=== PATIENT | male | born 1950 | race Caucasian/White ===

== ENCOUNTER → 2017-11-24 06:57 | Outpatient (CLI) | payer MEDICARE, OTHER, SELFPAY ==
--- NOTE | 2017-11-24 07:01 | CT_ITS ---
STUDY: CT MAXILLOFACIAL SINUSES REASON FOR EXAM: Male, 67 years old. Sinusitis RADIATION DOSAGE (If Supplied By Facility): CTDIvol = ( 29.38 ) mGy, DLP = ( 407.88 ) mGycm TECHNIQUE: The patient was scanned in a multi detector CT scanner. High resolution axial imaging was performed without the administration of intravenous contrast material. Sagittal and coronal images were reconstructed. Individualized dose optimization techniques were used for this CT. COMPARISON: None. FINDINGS: FRONTAL SINUSES: Mucosal thickening of the inferior frontal sinuses extending into the frontal recesses. ETHMOIDAL SINUSES: Mild ethmoid mucosal thickening MAXILLARY SINUSES: Mucosal thickening in the right and left maxillary sinuses. SPHENOIDAL SINUSES: Mild mucosal thickening. There is patency of the bilateral maxillary infundibuli with normal uncinate processes, ethmoid bullae, and hiatus semilunaris. There is paradoxical curvature of the right middle turbinate. Normal bilateral inferior turbinates. There is a right sided nasal septal deviation, but without a nasal septal spur. There is patency of the bilateral nasal airways. The visualized osseous structures are normal. The visualized bilateral orbital contents are normal. CT/Sinus/Facial Bone IMPRESSION: Pansinusitis with mild mucosal thickening. Opacification of frontal recesses. The ostiomeatal units are patent. Nasal septal deviation. Electronically Signed: Art Mccullough MD at 7:48 EDT , Service support ,
== END ==
PROVIDERS: Family Provider Internal Medicine; PCP Internal Medicine; Visit Provider Internal Medicine
DX: J32.9 Chronic sinusitis, unspecified (principal)
CPT/HCPCS: 70486

== ENCOUNTER → 2018-02-09 07:57 | Outpatient (CLI) | payer MEDICARE, OTHER, SELFPAY ==
--- NOTE | 2018-02-09 08:00 | RAD_ITS ---
STUDY: X-RAY - LUMBAR SPINE REASON FOR EXAM: Male, 67 years old. One-week history of low back pain. TECHNIQUE: 5 view(s) of the lumbar spine were obtained including oblique views. COMPARISON: None FINDINGS: Normal lumbar lordosis. There is no substantial scoliosis. There is a normal alignment of the vertebrae. Spondylosis at the L3-L4 and L4-L5 levels. Disc space narrowing at the L3-L4, L4-L5 and L5-S1 levels. Facet joint osteoarthritis. Status post bilateral total hip replacement. Degenerative changes of the sacroiliac joints. Large amount of fecal material is seen in the colon. RAD/L/S Spine Min 4 Views IMPRESSION: Degenerative changes of the spine, as detailed above. Electronically Signed: Spencer Vizcarra MD at 13:55 EDT Tel [phone], Service support ,
== END ==
PROVIDERS: Family Provider Internal Medicine; PCP Internal Medicine; Visit Provider Internal Medicine
DX: M54.5 Low back pain (principal)
CPT/HCPCS: 72110

== ENCOUNTER → 2018-06-28 07:52 | Outpatient (CLI) | payer MEDICARE, OTHER, SELFPAY ==
[2018-06-27 13:26] VITALS: BMI 27.4
[2018-06-28 10:38] LABS: AST(SGOT) 16 U/L (15-37); Alanine Aminotransfer ALT/SGPT 22 U/L (16-61); Albumin, Serum 3.8 g/dL (3.2-5.0); Alkaline Phosphatase 99 U/L (45-117); Bilirubin, Direct 0.14 mg/dL (0.00-0.30); Cholesterol 146 mg/dL (200); Globulin 3.6 g/dL (2.2-4.2); High Density Lipoprotein 56 mg/dL; Protein, Total 7.4 g/dL (6.4-8.2); Triglycerides 60 mg/dL; Very Low Density Lipoprotein 12 mg/dL (5-40)
== END ==
PROVIDERS: Family Provider Internal Medicine; PCP Internal Medicine; Referring Provider Internal Medicine Cardiovascular Disease; Visit Provider Internal Medicine Cardiovascular Disease
DX: E78.5 Hyperlipidemia, unspecified (principal); I25.10 Atherosclerotic heart disease of native coronary artery without angina pectoris; Z95.5 Presence of coronary angioplasty implant and graft
CPT/HCPCS: 36415; 80061; 80076

== ENCOUNTER → 2018-12-24 | Outpatient (CLI) | payer MEDICARE, OTHER, SELFPAY ==
[2018-06-27 13:26] VITALS: BMI 27.4
[2018-12-24 11:12] LABS: AST(SGOT) 16 U/L (15-37); Alanine Aminotransfer ALT/SGPT 23 U/L (16-61); Albumin, Serum 3.9 g/dL (3.2-5.0); Alkaline Phosphatase 91 U/L (45-117); Bilirubin, Direct 0.14 mg/dL (0.00-0.30); Cholesterol 148 mg/dL (200); Globulin 3.7 g/dL (2.2-4.2); High Density Lipoprotein 55 mg/dL; Protein, Total 7.6 g/dL (6.4-8.2); Triglycerides 86 mg/dL; Very Low Density Lipoprotein 17 mg/dL (5-40)
== END | disposition home or self-care (01) ==
PROVIDERS: Family Provider Internal Medicine; PCP Internal Medicine; Referring Provider Internal Medicine Cardiovascular Disease; Visit Provider Internal Medicine Cardiovascular Disease
DX: E78.5 Hyperlipidemia, unspecified (principal)
CPT/HCPCS: 36415; 80061; 80076

== ENCOUNTER → 2019-01-15 | Outpatient (CLI) | payer MEDICARE, OTHER, SELFPAY ==
[2018-12-27 11:47] VITALS: BMI 27.1
--- NOTE | 2019-01-15 11:12 | STRESSREP_ITS ---
Stress Test Report Date: 01-15-19 Procedure: Exercise tolerance test/imaging study Indications: Chest pain; CAD; PCI Consent: Per the patient Procedure: The patient exercised on a Charli protocol for 8 minutes completing Stage II and 2 minutes of Stage III achieving a peak heart rate of 134 bpm (87 % predicted maximal heart rate) with a peak blood pressure 170/78 mmHg and a peak MET capacity of 9 METs. The baseline ECG demonstrated sinus bradycardia. The peak exercise ECG demonstrated somatic/motion artifact with no obvious ECG changes. There were occasional PACs during recovery. The functional capacity was considered good. There was no complaint of chest discomfort during exercise or recovery. The examination was discontinued secondary to dyspnea. Impression: 1. Technically adequate (percent predicted maximal heart rate greater than 85%) exercise tolerance test 2. Peak exercise ECG with somatic/motion artifact with no obvious ECG changes 3. There were occasional PACs during recovery 4. Nuclear images pending Myocardial perfusion imaging study: Technique: The patient was injected with 11.7 mCi of technetium 99m Cardiolite and subsequently rest SPECT Cardiolite nuclear imaging was obtained in the horizontal long, vertical long, and short axis views. The patient exercised on a Charli protocol for 8 minutes completing Stage II and 2 minutes of Stage III achieving a peak heart rate of 134 bpm (87 % predicted maximal heart rate) with a peak blood pressure 170/78 mmHg and a peak MET capacity of 9 METs. The patient was injected with 33.9 mCi of technetium 99m Cardiolite and subsequently stress SPECT Cardiolite nuclear imaging was obtained in the horizontal long, vertical long, and short axis views. A gated Cardiolite study at peak stress was obtained. Interpretation: Rest and stress SPECT Cardiolite nuclear imaging status post realignment, normalization, and attenuation correction, demonstrates the appearance of relative uniform tracer uptake and myocardial perfusion appearing within normal limits. There is end systolic thickening and brightening. The gated Cardiolite study demonstrates myocardial thickening and inward wall motion. The reported LVEF is 67 %. Impression: 1. Rest and stress SPECT Cardiolite nuclear imaging demonstrate relative uniform tracer uptake and myocardial perfusion appearing within normal limits. 2. The gated Cardiolite study reports an LVEF of 67 %. This note was generated with [employer] software. It may contain incorrect words, spelling, and punctuation that were not noted in checking the note before signing.
== END | disposition home or self-care (01) ==
LOC: CVS 06:28
PROVIDERS: Family Provider Internal Medicine; PCP Internal Medicine; Referring Provider Internal Medicine Cardiovascular Disease; Visit Provider Internal Medicine Cardiovascular Disease
DX: I25.10 Atherosclerotic heart disease of native coronary artery without angina pectoris (principal); Z95.5 Presence of coronary angioplasty implant and graft
CPT/HCPCS: 78452; 93017; A9500; A4216

== ENCOUNTER → 2020-04-29 06:47 | Outpatient (CLI) | payer MEDICARE, OTHER, SELFPAY ==
[2020-04-13 14:51] VITALS: BMI 27.1
[2020-04-29 08:15] LABS: AST(SGOT) 18 U/L (15-37); Alanine Aminotransfer ALT/SGPT 21 U/L (16-61); Albumin, Serum 3.6 g/dL (3.2-5.0); Alkaline Phosphatase 94 U/L (45-117); Bilirubin, Direct 0.14 mg/dL (0.00-0.30); Cholesterol 127 mg/dL (200); Globulin 3.8 g/dL (2.2-4.2); High Density Lipoprotein 54 mg/dL; Protein, Total 7.4 g/dL (6.4-8.2); Triglycerides 61 mg/dL; Very Low Density Lipoprotein 12 mg/dL (5-40)
== END ==
PROVIDERS: PCP Internal Medicine; Referring Provider Internal Medicine Cardiovascular Disease; Visit Provider Internal Medicine Cardiovascular Disease
DX: E78.5 Hyperlipidemia, unspecified (principal)
CPT/HCPCS: 36415; 80061; 80076

== ENCOUNTER → 2020-11-02 16:26 | Outpatient (CLI) | payer MEDICARE, OTHER, SELFPAY ==
[2020-11-02 15:30] VITALS: BMI 28.0
--- NOTE | 2020-11-02 16:48 | RAD_ITS ---
STUDY: X-RAY CHEST REASON FOR EXAM: Male, 70 years old. SOB, Cough TECHNIQUE: PA and lateral views of the chest. COMPARISON: 03/23/2015 FINDINGS: The lungs are clear and expanded. There is no demonstrated pleural abnormality. Normal size heart. Normal mediastinum and jeremias. Normal visualized pulmonary arteries. Normal visualized aortic arch and descending thoracic aorta. Normal visualized thoracic spine. Normal visualized ribs, clavicles, and shoulders. There is no demonstrated abnormality of the visualized soft tissue structures of the upper abdomen. RAD/Chest PA and Lateral IMPRESSION: Normal x-ray examination of the chest. Electronically Signed: Armando Boyer MD at 9:18 EDT Tel , Service support ,
[2020-11-02 17:38] LABS: Absolute Neutrophil Count 3.9 X10^3/uL (2.0-7.7); Basophil# 0.03 X10^3/uL; Basophil% 0.4 % (0-1); Eosinophil# 0.24 X10^3/uL; Eosinophils% 3.5 % (0-5); Hematocrit 47.3 % (40-54); Hemoglobin 15.3 g/dL (13.0-16.5); Lymphocyte % 29.3 % (19-41); Mean Corp Hgb Conc 32.3 g/dL (32-36); Mean Corpuscular Hgb 30.7 pg (27.0-32.0); Mean Platelet Vol. 9.6 fl (6.2-12.0); Monocyte# 0.67 X10^3/uL; Monocyte% 9.8 % (0-10); NRBC Flagged by Analyzer 0 % (0-5); Neutrophil # 3.86 X10^3/uL (2.7-7.7); Neutrophil % 56.7 % (47-70); Platelet Count 289 K/mm3 (150-450); RBC Distribution Width CV 12.5 % (11.6-14.6); RBC Distribution Width SD 43.4 fl (35.1-43.9); Red Blood Count 4.98 M/mm3 (4.6-6.2); White Blood Count 6.8 K/mm3 (4.4-11.0)
[2020-11-02 18:25] LABS: Anion Gap 4 (5-15); BUN 13 mg/dL (7-18); BUN/Creat Ratio 12.6 RATIO (10-20); Calcium,Total 9.4 mg/dL (8.5-10.1); Chloride 101 mmol/L (98-107); Creatinine, Serum 1.03 mg/dL (0.70-1.30); EST Glomerular Filtration Rate 76 mL/min (>60); Est Glom Filt Rate - Afr Amer 92 mL/min (>60); Glucose 80 mg/dL (74-106); Potassium 3.8 mmol/L (3.5-5.1); Sodium Level 137 mmol/L (136-145)
[2020-11-02 18:27] LABS: BNP,B-Type NATRIURETIC PEPTIDE 15.7 pg/mL (0-100)
== END ==
PROVIDERS: Nurse Practitioner Family; PCP Internal Medicine; Referring Provider Internal Medicine Cardiovascular Disease; Visit Provider Internal Medicine Cardiovascular Disease
DX: E78.5 Hyperlipidemia, unspecified (principal); R06.00 Dyspnea, unspecified; I10 Essential (primary) hypertension; I25.10 Atherosclerotic heart disease of native coronary artery without angina pectoris; R06.02 Shortness of breath; Z95.5 Presence of coronary angioplasty implant and graft
CPT/HCPCS: 36415; 71046; 80048; 83880; 85025

== ENCOUNTER → 2022-07-08 | Outpatient (CLI) | payer MEDICARE, OTHER, SELFPAY ==
[2022-07-08 07:55] LABS: AST(SGOT) 13 U/L (15-37); Alanine Aminotransfer ALT/SGPT 25 U/L (16-61); Albumin, Serum 3.6 g/dL (3.2-5.0); Alkaline Phosphatase 91 U/L (45-117); Bilirubin, Direct 0.21 mg/dL (0.00-0.30); Cholesterol 112 mg/dL (200); Globulin 3.7 g/dL (2.2-4.2); High Density Lipoprotein 48 mg/dL; Protein, Total 7.3 g/dL (6.4-8.2); Triglycerides 60 mg/dL; Very Low Density Lipoprotein 12 mg/dL (5-40)
== END | disposition home or self-care (01) ==
LOC: LAB 06:55
PROVIDERS: PCP Internal Medicine; Referring Provider Nurse Practitioner Family; Visit Provider Nurse Practitioner Family
DX: I25.10 Atherosclerotic heart disease of native coronary artery without angina pectoris (principal); E78.5 Hyperlipidemia, unspecified
CPT/HCPCS: 36415; 80061; 80076

== ENCOUNTER → 2023-01-02 | Outpatient (CLI) | payer MEDICARE, OTHER, SELFPAY ==
[2023-01-02 16:20] LABS: ALB/GLOB Ratio 0.9 RATIO (0.9-2.4); AST(SGOT) 33 U/L (15-37); Alanine Aminotransfer ALT/SGPT 57 U/L (16-61); Albumin, Serum 3.6 g/dL (3.2-5.0); Alkaline Phosphatase 247 U/L (45-117); Anion Gap 7 (5-15); BUN 13 mg/dL (7-18); BUN/Creat Ratio 13.3 RATIO (10-20); Calcium,Total 9.1 mg/dL (8.5-10.1); Chloride 106 mmol/L (98-107); Cholesterol 113 mg/dL (200); Creatinine, Serum 0.98 mg/dL (0.70-1.30); EST Glomerular Filtration Rate 80 mL/min (>60); Est Glom Filt Rate - Afr Amer 97 mL/min (>60); Glucose 87 mg/dL (74-106); High Density Lipoprotein 48 mg/dL; Potassium 4.1 mmol/L (3.5-5.1); Protein, Total 7.6 g/dL (6.4-8.2); Sodium Level 139 mmol/L (136-145); Triglycerides 126 mg/dL; Very Low Density Lipoprotein 25 mg/dL (5-40)
== END | disposition home or self-care (01) ==
PROVIDERS: PCP Internal Medicine; Referring Provider Physician Assistant Medical; Visit Provider Physician Assistant Medical
DX: I10 Essential (primary) hypertension (principal); E78.5 Hyperlipidemia, unspecified; Z95.5 Presence of coronary angioplasty implant and graft; Z79.899 Other long term (current) drug therapy
CPT/HCPCS: 36415; 80053; 80061

== ENCOUNTER → 2023-01-10 | Outpatient (CLI) | payer MEDICARE, OTHER, SELFPAY ==
[2023-01-10 15:46] LABS: Absolute Lymphocyte Count 2.21 X10^3/uL (0.83-4.51); Absolute Neutrophil Count 4.5 X10^3/uL (2.0-7.7); Basophil# 0.05 X10^3/uL; Basophil% 0.6 % (0-1); Eosinophil# 0.49 X10^3/uL; Hematocrit 44.6 % (40-54); Hemoglobin 14.9 g/dL (13.0-16.5); Lymphocyte # 2.21 X10^3/ul (0.83-4.51); Lymphocyte % 27.2 % (19-41); Mean Corp Hgb Conc 33.4 g/dL (32-36); Mean Corpuscular Hgb 31.3 pg (27.0-32.0); Mean Corpuscular Volume 93.7 fL (80-94); Mean Platelet Vol. 9.6 fl (6.2-12.0); Monocyte# 0.86 X10^3/uL; Monocyte% 10.6 % (0-10); NRBC Flagged by Analyzer 0 % (0-5); Neutrophil # 4.49 X10^3/uL (2.7-7.7); Neutrophil % 55.2 % (47-70); Platelet Count 285 K/mm3 (150-450); RBC Distribution Width CV 12.7 % (11.6-14.6); RBC Distribution Width SD 44.2 fl (35.1-43.9); Red Blood Count 4.76 M/mm3 (4.6-6.2); White Blood Count 8.1 K/mm3 (4.4-11.0)
[2023-01-10 17:07] LABS: ALB/GLOB Ratio 0.9 RATIO (0.9-2.4); AST(SGOT) 22 U/L (15-37); Alanine Aminotransfer ALT/SGPT 38 U/L (16-61); Albumin, Serum 3.6 g/dL (3.2-5.0); Alkaline Phosphatase 185 U/L (45-117); Anion Gap 7 (5-15); BUN 14 mg/dL (7-18); BUN/Creat Ratio 13.6 RATIO (10-20); Calcium,Total 9.2 mg/dL (8.5-10.1); Chloride 105 mmol/L (98-107); Creatinine, Serum 1.03 mg/dL (0.70-1.30); EST Glomerular Filtration Rate 76 mL/min (>60); Est Glom Filt Rate - Afr Amer 91 mL/min (>60); Globulin 3.9 g/dL (2.2-4.2); Glucose 94 mg/dL (74-106); Hepatitis C Antibody Non-Reactive (Nonreactive); PSA,Total - Annual Screen 1.45 ng/mL (0.00-4.00); Potassium 3.8 mmol/L (3.5-5.1); Protein, Total 7.5 g/dL (6.4-8.2); Sodium Level 139 mmol/L (136-145); Thyroid Stim Hormone (TSH) 0.01 uIU/mL (0.358-3.74)
== END | disposition home or self-care (01) ==
LOC: LAB 15:27
PROVIDERS: PCP Family Medicine Geriatric Medicine; Referring Provider Family Medicine Geriatric Medicine; Visit Provider Family Medicine Geriatric Medicine
DX: E03.9 Hypothyroidism, unspecified (principal); Z13.89 Encounter for screening for other disorder; Z12.5 Encounter for screening for malignant neoplasm of prostate
CPT/HCPCS: 36415; 80053; 84153; 84443; 85025; 86803; G0103

== ENCOUNTER → 2023-01-17 | Outpatient (CLI) | payer MEDICARE, OTHER, SELFPAY ==
--- NOTE | 2023-01-17 07:16 | US_ITS ---
PROCEDURES: ULTRASOUND AORTA REASON FOR EXAM: Male, 72 years old. SCREENING TECHNIQUE: Ultrasound evaluation of the aorta was performed with real-time and static arreola-scale imaging. COMPARISON: None. FINDINGS: There is no elongation or tortuosity of the abdominal aorta. Aorta measures: Proximal 2.2 cm. Middle 1.8 cm. Distal 1.5 cm. Aorta measure transversely: Proximal 1.7 cm. Middle 1.5 cm. Distal 1.5 cm. Right iliac artery measures: 1.1 cm. Right iliac artery measure transversely: 0.9 cm. Left iliac artery measures: 1.1 cm. Left iliac artery measure transversely: 1.0 cm. There is no demonstrated aneurysm.. US/Aorta IMPRESSION: Normal abdominal aorta. Electronically Signed: Armando Boyer MD at 20:47 EDT ,
== END | disposition home or self-care (01) ==
LOC: US 07:15
PROVIDERS: PCP Family Medicine Geriatric Medicine; Referring Provider Family Medicine Geriatric Medicine; Visit Provider Family Medicine Geriatric Medicine
DX: Z00.00 Encounter for general adult medical examination without abnormal findings (principal)
CPT/HCPCS: 76775

== ENCOUNTER → 2023-02-23 | Outpatient (CLI) | payer MEDICARE, OTHER, SELFPAY ==
[2023-02-23 13:05] LABS: Thyroid Stim Hormone (TSH) 0.01 uIU/mL (0.358-3.74)
[2023-02-23 13:19] LABS: AST(SGOT) 20 U/L (15-37); Alanine Aminotransfer ALT/SGPT 25 U/L (16-61); Albumin, Serum 3.5 g/dL (3.2-5.0); Alkaline Phosphatase 95 U/L (45-117); Bilirubin, Direct 0.14 mg/dL (0.00-0.30); Cholesterol 218 mg/dL (200); Globulin 3.8 g/dL (2.2-4.2); High Density Lipoprotein 49 mg/dL; Protein, Total 7.3 g/dL (6.4-8.2); Triglycerides 172 mg/dL; Very Low Density Lipoprotein 34 mg/dL (5-40)
== END | disposition home or self-care (01) ==
LOC: LAB 10:34
PROVIDERS: Nurse Practitioner Family; PCP Family Medicine Geriatric Medicine; Referring Provider Family Medicine Geriatric Medicine; Visit Provider Family Medicine Geriatric Medicine
DX: E03.9 Hypothyroidism, unspecified (principal)
CPT/HCPCS: 36415; 80061; 80076; 84443

== ENCOUNTER → 2023-04-06 | Outpatient (CLI) | payer MEDICARE, OTHER, SELFPAY ==
--- NOTE | 2023-04-06 09:45 | NEURO ---
NCS and/or EMG Patient Report Ordering Doctor: Dickson Church DATE OF SERVICE: 04/06/23 Clinical Summary: 72 year old male patient presenting with complaints of paresthesias and numbness in the bilateral hands. This EMG/NCS was performed to evaluate for bilateral carpal tunnel syndrome. Nerve Conduction Studies: The right median-SNAP was absent. The left median-D2 SNAP distal latency was prolonged with reduced amplitude. The right median vora response was absent. The ulnar-D5 SNAP distal latency was prolonged bilaterally. The median-APB CMAP distal latency was prolonged bilaterally with reduced amplitude on the right. There was right ulnar motor conduction velocity slowing across the elbow. Needle Examination: There was a higher proportion of motor unit action potentials with reduced recruitment, increased amplitude, increased duration, and polyphasia in the bilateral abductor pollicis brevis and right first dorsal interosseous muscles. Impression: There is electrodiagnostic evidence of the following - 1) Severe, bilateral median mononeuropathies at the wrists (carpal tunnel syndrome), with secondary motor fiber axonal loss 2) Right ulnar mononeuropathy at the elbow, with secondary motor fiber axonal loss Multi Select Codes Neurology Neurology Interp Codes: 73523-08 EMG Only, 2 Extremities and 78947-37 Nrv cnd test 13/> studies (interp)
== END | disposition home or self-care (01) ==
LOC: PSN 09:31
PROVIDERS: PCP Family Medicine Geriatric Medicine; Referring Provider Student in an Organized Health Care Education/Training Program; Visit Provider Student in an Organized Health Care Education/Training Program
DX: R20.2 Paresthesia of skin (principal); M18.0 Bilateral primary osteoarthritis of first carpometacarpal joints; M19.032 Primary osteoarthritis, left wrist
CPT/HCPCS: 95886; 95913

== ENCOUNTER → 2023-06-02 | Outpatient (CLI) | payer MEDICARE, OTHER, SELFPAY ==
[2023-06-02 15:59] LABS: AST(SGOT) 27 U/L (15-37); Alanine Aminotransfer ALT/SGPT 44 U/L (16-61); Albumin, Serum 3.4 g/dL (3.2-5.0); Alkaline Phosphatase 118 U/L (45-117); Bilirubin, Direct 0.21 mg/dL (0.00-0.30); Cholesterol 121 mg/dL (200); Globulin 3.7 g/dL (2.2-4.2); High Density Lipoprotein 55 mg/dL; Protein, Total 7.1 g/dL (6.4-8.2); Triglycerides 78 mg/dL; Very Low Density Lipoprotein 16 mg/dL (5-40)
[2023-06-02 16:04] LABS: ALB/GLOB Ratio 0.9 RATIO (0.9-2.4); AST(SGOT) 27 U/L (15-37); Alanine Aminotransfer ALT/SGPT 45 U/L (16-61); Albumin, Serum 3.3 g/dL (3.2-5.0); Alkaline Phosphatase 119 U/L (45-117); Anion Gap 5 (5-15); BUN 11 mg/dL (7-18); BUN/Creat Ratio 11.1 RATIO (10-20); Calcium,Total 8.8 mg/dL (8.5-10.1); Chloride 106 mmol/L (98-107); Creatinine, Serum 0.99 mg/dL (0.70-1.30); EST Glomerular Filtration Rate 79 mL/min (>60); Est Glom Filt Rate - Afr Amer 95 mL/min (>60); Globulin 3.7 g/dL (2.2-4.2); Glucose 74 mg/dL (74-106); Sodium Level 142 mmol/L (136-145); T4 Free Direct 1.21 ng/dL (0.76-1.46); Thyroid Stim Hormone (TSH) 0.09 uIU/mL (0.358-3.74)
== END | disposition home or self-care (01) ==
LOC: LAB 14:08
PROVIDERS: Nurse Practitioner Family; Physician Assistant Medical; PCP Family Medicine Geriatric Medicine; Visit Provider Family Medicine Geriatric Medicine
DX: E03.9 Hypothyroidism, unspecified (principal); E78.5 Hyperlipidemia, unspecified
CPT/HCPCS: 36415; 80053; 80061; 80076; 84439; 84443; 84481

== ENCOUNTER → 2023-06-06 | Outpatient (CLI) | payer MEDICARE, OTHER, SELFPAY ==
[2023-06-06 17:24] LABS: Absolute Lymphocyte Count 2.03 X10^3/uL (0.83-4.51); Absolute Neutrophil Count 3.7 X10^3/uL (2.0-7.7); Basophil# 0.03 X10^3/uL; Basophil% 0.5 % (0-1); Eosinophil# 0.19 X10^3/uL; Eosinophils% 2.9 % (0-5); Hematocrit 43.2 % (40-54); Hemoglobin 14.3 g/dL (13.0-16.5); Lymphocyte # 2.03 X10^3/ul (0.83-4.51); Lymphocyte % 30.5 % (19-41); Mean Corp Hgb Conc 33.1 g/dL (32-36); Mean Corpuscular Hgb 31.9 pg (27.0-32.0); Mean Corpuscular Volume 96.4 fL (80-94); Mean Platelet Vol. 9.5 fl (6.2-12.0); Monocyte# 0.71 X10^3/uL; Monocyte% 10.7 % (0-10); NRBC Flagged by Analyzer 0 % (0-5); Neutrophil # 3.67 X10^3/uL (2.7-7.7); Neutrophil % 55.1 % (47-70); Platelet Count 245 K/mm3 (150-450); RBC Distribution Width CV 12.8 % (11.6-14.6); RBC Distribution Width SD 45.8 fl (35.1-43.9); Red Blood Count 4.48 M/mm3 (4.6-6.2); White Blood Count 6.7 K/mm3 (4.4-11.0)
[2023-06-06 17:32] LABS: Prothrombin Time (Protime)PT. 13.5 SECONDS (11.7-14.9)
[2023-06-06 17:33] LABS: Partial Thromboplast Time 30.2 Seconds (24.1-36.2)
[2023-06-06 17:59] LABS: Anion Gap 6 (5-15); BUN 18 mg/dL (7-18); BUN/Creat Ratio 17.5 RATIO (10-20); Calcium,Total 8.9 mg/dL (8.5-10.1); Chloride 106 mmol/L (98-107); Creatinine, Serum 1.03 mg/dL (0.70-1.30); EST Glomerular Filtration Rate 75 mL/min (>60); Est Glom Filt Rate - Afr Amer 91 mL/min (>60); Glucose 89 mg/dL (74-106); Potassium 3.7 mmol/L (3.5-5.1); Sodium Level 139 mmol/L (136-145)
== END | disposition home or self-care (01) ==
LOC: POLAB3 17:07
PROVIDERS: PCP Family Medicine Geriatric Medicine; Visit Provider Family Medicine Geriatric Medicine
DX: Z01.818 Encounter for other preprocedural examination (principal); E03.9 Hypothyroidism, unspecified; R53.83 Other fatigue
CPT/HCPCS: 36415; 80048; 85025; 85610; 85730

== ENCOUNTER → 2023-07-13 | Outpatient (CLI) | payer MEDICARE, OTHER, SELFPAY ==
[2023-07-13 14:42] LABS: Absolute Lymphocyte Count 2.07 X10^3/uL (0.83-4.51); Absolute Neutrophil Count 5.1 X10^3/uL (2.0-7.7); Basophil# 0.06 X10^3/uL; Basophil% 0.7 % (0-1); Eosinophils% 3.6 % (0-5); Hematocrit 44.5 % (40-54); Lymphocyte # 2.07 X10^3/ul (0.83-4.51); Lymphocyte % 25.1 % (19-41); Mean Corp Hgb Conc 33.7 g/dL (32-36); Mean Corpuscular Hgb 32.5 pg (27.0-32.0); Mean Corpuscular Volume 96.3 fL (80-94); Mean Platelet Vol. 9.7 fl (6.2-12.0); Monocyte# 0.69 X10^3/uL; Monocyte% 8.4 % (0-10); NRBC Flagged by Analyzer 0 % (0-5); Neutrophil # 5.07 X10^3/uL (2.7-7.7); Neutrophil % 61.6 % (47-70); Platelet Count 308 K/mm3 (150-450); RBC Distribution Width CV 12.7 % (11.6-14.6); RBC Distribution Width SD 44.1 fl (35.1-43.9); Red Blood Count 4.62 M/mm3 (4.6-6.2); White Blood Count 8.2 K/mm3 (4.4-11.0)
[2023-07-13 15:09] LABS: Vitamin D,25 Hydroxy 42.6 ng/mL
[2023-07-13 15:18] LABS: ALB/GLOB Ratio 1.1 RATIO (0.9-2.4); AST(SGOT) 23 U/L (15-37); Alanine Aminotransfer ALT/SGPT 35 U/L (16-61); Albumin, Serum 3.8 g/dL (3.2-5.0); Alkaline Phosphatase 105 U/L (45-117); Anion Gap 6 (5-15); BUN 15 mg/dL (7-18); BUN/Creat Ratio 14.2 RATIO (10-20); Calcium,Total 9.1 mg/dL (8.5-10.1); Chloride 106 mmol/L (98-107); Creatinine, Serum 1.06 mg/dL (0.70-1.30); EST Glomerular Filtration Rate 73 mL/min (>60); Est Glom Filt Rate - Afr Amer 88 mL/min (>60); Globulin 3.6 g/dL (2.2-4.2); Glucose 90 mg/dL (74-106); Potassium 3.8 mmol/L (3.5-5.1); Protein, Total 7.4 g/dL (6.4-8.2); Sodium Level 141 mmol/L (136-145); Thyroid Stim Hormone (TSH) 0.25 uIU/mL (0.358-3.74)
== END | disposition home or self-care (01) ==
LOC: LAB 14:00
PROVIDERS: PCP Family Medicine Geriatric Medicine; Referring Provider Family Medicine Geriatric Medicine; Visit Provider Family Medicine Geriatric Medicine
DX: R53.83 Other fatigue (principal); E55.9 Vitamin D deficiency, unspecified
CPT/HCPCS: 36415; 80053; 82306; 84443; 85025

== ENCOUNTER → 2023-09-26 | Outpatient (CLI) | payer MEDICARE, OTHER, SELFPAY | END | disposition home or self-care (01) | LOC: PSN 12:18 | PROVIDERS: PCP Family Medicine Geriatric Medicine; Referring Provider Family Medicine Geriatric Medicine; Visit Provider Family Medicine Geriatric Medicine | DX: R68.83 Chills (without fever) (principal) | CPT/HCPCS: 87631 ==

== ENCOUNTER → 2023-12-06 | Outpatient (CLI) | payer MEDICARE, OTHER, SELFPAY ==
[2023-12-06 19:43] LABS: M R Staph aureus DNA By PCR Negative (Negative); Probe Check PASS; Specimen Processing Control PASS; Staph aureus DNA By PCR NEGATIVE (Negative)
== END | disposition home or self-care (01) ==
PROVIDERS: PCP Family Medicine Geriatric Medicine; Visit Provider Family Medicine Geriatric Medicine
DX: L03.114 Cellulitis of left upper limb (principal); B95.62 Methicillin resistant Staphylococcus aureus infection as the cause of diseases classified elsewhere
CPT/HCPCS: 87070; 87205; 87640

== ENCOUNTER → 2024-01-19 | Outpatient (CLI) | payer MEDICARE, OTHER, SELFPAY ==
[2024-01-19 10:28] LABS: Absolute Lymphocyte Count 1.37 X10^3/uL (0.83-4.51); Absolute Neutrophil Count 3.2 X10^3/uL (2.0-7.7); Basophil# 0.05 X10^3/uL; Basophil% 0.9 % (0-1); Eosinophil# 0.22 X10^3/uL; Eosinophils% 4.1 % (0-5); Hemoglobin 14.7 g/dL (13.0-16.5); Lymphocyte # 1.37 X10^3/ul (0.83-4.51); Lymphocyte % 25.4 % (19-41); Mean Corp Hgb Conc 33.4 g/dL (32-36); Mean Corpuscular Hgb 32.3 pg (27.0-32.0); Mean Corpuscular Volume 96.7 fL (80-94); Mean Platelet Vol. 9.5 fl (6.2-12.0); Monocyte# 0.49 X10^3/uL; Monocyte% 9.1 % (0-10); NRBC Flagged by Analyzer 0 % (0-5); Neutrophil # 3.24 X10^3/uL (2.7-7.7); Neutrophil % 59.9 % (47-70); Platelet Count 236 K/mm3 (150-450); RBC Distribution Width SD 46.2 fl (35.1-43.9); Red Blood Count 4.55 M/mm3 (4.6-6.2); White Blood Count 5.4 K/mm3 (4.4-11.0)
[2024-01-19 11:10] LABS: Vitamin D,25 Hydroxy 37.4 ng/mL
[2024-01-19 11:20] LABS: ALB/GLOB Ratio 1.1 RATIO (0.9-2.4); AST(SGOT) 27 U/L (15-37); Alanine Aminotransfer ALT/SGPT 34 U/L (16-61); Albumin, Serum 3.6 g/dL (3.2-5.0); Alkaline Phosphatase 85 U/L (45-117); Anion Gap 7 (5-15); BUN 12 mg/dL (7-18); BUN/Creat Ratio 11.9 RATIO (10-20); Calcium,Total 9.1 mg/dL (8.5-10.1); Chloride 107 mmol/L (98-107); Creatinine, Serum 1.01 mg/dL (0.70-1.30); EST Glomerular Filtration Rate 77 mL/min (>60); Est Glom Filt Rate - Afr Amer 93 mL/min (>60); Globulin 3.3 g/dL (2.2-4.2); Glucose 121 mg/dL (74-106); Potassium 3.8 mmol/L (3.5-5.1); Protein, Total 6.9 g/dL (6.4-8.2); Sodium Level 141 mmol/L (136-145); Thyroid Stim Hormone (TSH) 2.04 uIU/mL (0.358-3.74)
== END | disposition home or self-care (01) ==
LOC: LAB 09:57
PROVIDERS: PCP Family Medicine Geriatric Medicine; Referring Provider Family Medicine Geriatric Medicine; Visit Provider Family Medicine Geriatric Medicine
DX: R53.83 Other fatigue (principal); E55.9 Vitamin D deficiency, unspecified; Z12.5 Encounter for screening for malignant neoplasm of prostate
CPT/HCPCS: 36415; 80053; 82306; 84153; 84403; 84443; 85025; G0103

== ENCOUNTER → 2024-02-12 | Outpatient (CLI) | payer MEDICARE, OTHER, SELFPAY ==
[2024-02-12 07:39] LABS: AST(SGOT) 24 U/L (15-37); Alanine Aminotransfer ALT/SGPT 30 U/L (16-61); Albumin, Serum 3.8 g/dL (3.2-5.0); Alkaline Phosphatase 90 U/L (45-117); Bilirubin, Direct 0.22 mg/dL (0.00-0.30); Cholesterol 133 mg/dL (200); Globulin 3.9 g/dL (2.2-4.2); High Density Lipoprotein 56 mg/dL; Protein, Total 7.7 g/dL (6.4-8.2); Triglycerides 68 mg/dL; Very Low Density Lipoprotein 14 mg/dL (5-40)
== END | disposition home or self-care (01) ==
LOC: LAB 06:41
PROVIDERS: PCP Family Medicine Geriatric Medicine; Referring Provider Nurse Practitioner Family; Visit Provider Nurse Practitioner Family
DX: E78.00 Pure hypercholesterolemia, unspecified (principal)
CPT/HCPCS: 36415; 80061; 80076

== ENCOUNTER → 2024-03-27 | Outpatient (CLI) | payer MEDICARE, OTHER, SELFPAY ==
--- NOTE | 2024-03-27 12:58 | ECHOD_ITS ---
Reason For Study: DYSPNEA Procedure This was a 2D Doppler, Color Flow transthoracic echocardiogram. Exam performed in department. Left Ventricle Normal LV size. The left ventricular ejection fraction is 65 %. Stage 1 diastolic dysfunction. No regional wall motion abnormalities noted. Right Ventricle Normal RV size. The right ventricle is normal in size, function, and thickness. Atria Normal left atrium. Normal right atrium. Mitral Valve Normal mitral valve. Tricuspid Valve Normal tricuspid valve. Mild tricuspid valve insufficiency. Pulmonary artery systolic pressure is 22 mmHg. Aortic Valve Trisinus/trileaflet aortic valve. Pulmonic Valve Normal pulmonic valve. Great Vessels Normal aortic root. The pulmonary artery is normal size. Normal inferior vena cava. Pericardium/Pleural No pericardial effusion. MMode/2D Measurements & Calculations LVIDd: 3.6 cm IVSd: 1.2 cm LVOT diam: 2.1 cm LVIDs: 2.2 cm LVPWd: 1.1 cm LVOT area: 3.6 cm2 RVDd: 4.4 cm FS: 37.9 % Ao root diam: 3.9 cm LAV(MOD-bp): 55.2 ml LVAd ap4: 25.4 cm2 LAV(MOD-bp) Indexed: 27.6 ml/m2 LVLd ap4: 7.8 cm LAV(MOD-sp2): 65.0 ml EDV(MOD-sp4): 69.7 ml LAV(MOD-sp4): 44.8 ml EDV(sp4-el): 70.8 ml LVAs ap4: 13.0 cm2 LVLs ap4: 6.3 cm ESV(MOD-sp4): 23.7 ml ESV(sp4-el): 23.0 ml EF(MOD-sp4): 66.1 % EF(sp4-el): 67.5 % LVAd ap2: 22.7 cm2 SV(MOD-sp4): 46.0 ml SV(MOD-sp2): 34.9 ml LVLd ap2: 7.6 cm EDV(MOD-sp2): 57.1 ml EDV(sp2-el): 57.2 ml LVAs ap2: 13.0 cm2 LVLs ap2: 6.7 cm ESV(MOD-sp2): 22.3 ml ESV(sp2-el): 21.3 ml EF(MOD-sp2): 61.0 % SV(sp4-el): 47.8 ml LA dimension(2D): 3.9 cm LA A4 area: 17.3 cm2 RA A4 area: 15.7 cm2 TAPSE: 2.3 cm Time Measurements MV dec time: 0.26 sec Doppler Measurements & Calculations MV E max candido: 53.6 cm/sec Lat Peak E' Candido: 8.2 cm/sec Med Peak E' Candido: 6.8 cm/sec MV A max candido: 59.3 cm/sec E/E' lat: 6.5 E/E' med: 7.9 MV E/A: 0.90 Ao V2 max: 118.5 cm/sec LV V1 max: 106.9 cm/sec MV dec slope: 206.4 cm/sec2 Ao max P.6 mmHg LV V1 max P.6 mmHg Ao V2 mean: 78.2 cm/sec LV V1 mean P.7 mmHg Ao mean P.8 mmHg LV V1 mean: 77.8 cm/sec Ao V2 VTI: 27.7 cm LV V1 VTI: 25.2 cm AV (velocity ratio): 0.91 EDDIE(I,D): 3.3 cm2 EDDIE(V,D): 3.3 cm2 SV(LVOT): 90.8 ml PA V2 max: 105.3 cm/sec TR max candido: 219.6 cm/sec PA max PG (full): 3.3 mmHg TR max P.3 mmHg ECHO/Echo Complete Interpretation Summary Normal LV size. The left ventricular ejection fraction is 65 %. Stage 1 diastolic dysfunction. Structurally normal valves. Ordering Physician: Annmarie Huerta Referring Physician: Tee Ricardo Chi Performed By: Soraida Grant RDCS
== END | disposition home or self-care (01) ==
PROVIDERS: PCP Family Medicine Geriatric Medicine; Referring Provider Physician Assistant Medical; Visit Provider Physician Assistant Medical
DX: R06.09 Other forms of dyspnea (principal)
CPT/HCPCS: 93306

== ENCOUNTER → 2024-07-15 | Outpatient (CLI) | payer MEDICARE, OTHER, SELFPAY ==
[2024-07-15 17:07] LABS: Absolute Lymphocyte Count 2.06 X10^3/uL (0.83-4.51); Absolute Neutrophil Count 3.3 X10^3/uL (2.0-7.7); Basophil# 0.07 X10^3/uL; Eosinophil# 0.34 X10^3/uL; Eosinophils% 5.1 % (0-5); Hematocrit 45.3 % (40-54); Hemoglobin 15.4 g/dL (13.0-16.5); Lymphocyte # 2.06 X10^3/ul (0.83-4.51); Lymphocyte % 30.7 % (19-41); Mean Corpuscular Hgb 32.6 pg (27.0-32.0); Mean Platelet Vol. 9.8 fl (6.2-12.0); Monocyte% 13.4 % (0-10); NRBC Flagged by Analyzer 0 % (0-5); Neutrophil # 3.32 X10^3/uL (2.7-7.7); Neutrophil % 49.4 % (47-70); Platelet Count 258 K/mm3 (150-450); RBC Distribution Width CV 12.7 % (11.6-14.6); RBC Distribution Width SD 44.8 fl (35.1-43.9); Red Blood Count 4.72 M/mm3 (4.6-6.2); White Blood Count 6.7 K/mm3 (4.4-11.0)
[2024-07-15 17:35] LABS: Vitamin D,25 Hydroxy 34.1 ng/mL
[2024-07-15 17:52] LABS: ALB/GLOB Ratio 1.1 RATIO (0.9-2.4); AST(SGOT) 75 U/L (15-37); Alanine Aminotransfer ALT/SGPT 144 U/L (16-61); Albumin, Serum 3.8 g/dL (3.2-5.0); Alkaline Phosphatase 116 U/L (45-117); Anion Gap 4 (5-15); BUN 17 mg/dL (7-18); BUN/Creat Ratio 17.2 RATIO (10-20); Chloride 105 mmol/L (98-107); Creatinine, Serum 0.99 mg/dL (0.70-1.30); EST Glomerular Filtration Rate 79 mL/min (>60); Est Glom Filt Rate - Afr Amer 96 mL/min (>60); Globulin 3.5 g/dL (2.2-4.2); Glucose 78 mg/dL (74-106); Protein, Total 7.3 g/dL (6.4-8.2); Sodium Level 137 mmol/L (136-145)
== END | disposition home or self-care (01) ==
LOC: LAB 16:38
PROVIDERS: PCP Family Medicine Geriatric Medicine; Referring Provider Family Medicine Geriatric Medicine; Visit Provider Family Medicine Geriatric Medicine
DX: E55.9 Vitamin D deficiency, unspecified (principal); R53.83 Other fatigue
CPT/HCPCS: 36415; 80053; 82306; 84443; 85025

== ENCOUNTER 2024-07-22 14:37 | Outpatient (CLI) | payer MEDICARE, OTHER, SELFPAY ==
[2024-07-24 05:06] LABS: HEPATITIS B SURFACE AG Negative (Negative); Hep C Antibodies Non Reactive (Non Reactive); Hepatitis A IgM Antibody Negative (Negative); Hepatitis B Core AB IgM Negative (Negative)
== END 2024-07-22 23:59 | disposition home or self-care (01) ==
LOC: MTLAB 14:38
PROVIDERS: PCP Family Medicine Geriatric Medicine; Referring Provider Family Medicine Geriatric Medicine; Visit Provider Family Medicine Geriatric Medicine
DX: R74.8 Abnormal levels of other serum enzymes (principal)
CPT/HCPCS: 36415; 80074

== ENCOUNTER → 2024-07-26 | Outpatient (CLI) | payer MEDICARE, OTHER, SELFPAY ==
--- NOTE | 2024-07-26 07:34 | US_ITS ---
STUDY: ABDOMINAL ULTRASOUND - RIGHT UPPER QUADRANT REASON FOR VISIT: Male, 74 years old. ABDOMEN PAIN Abnormal levels of other serum enzymes TECHNIQUE: Ultrasound evaluation of the right upper quadrant was performed with real-time and static arreola-scale imaging. TECHNICAL QUALITY: Adequate. COMPARISON: None FINDINGS: Liver: There is normal echogenicity of the liver. The bile ducts are within normal limits. There is hepatic color flow. The direction of portal flow is hepatopetal. There is no demonstrated mass lesion. Gallbladder: Normal distended gallbladder. The gallbladder wall measures 1.2 mm. There is a negative sonographic Bingham''s sign. There is no pericholecystic fluid. There are no gallstones. Common Bile Duct (C.B.D.): The common bile duct measures ( in mm): 2 Pancreas: Normal size of the head, body of the pancreas. There is slight increased echogenicity echogenicity of the pancreas. There is no demonstrated pancreatic mass or cyst. Right Kidney: Normal size of the right kidney. The right kidney measures 10.4 cm. . Normal renal cortex. There is no demonstrated renal mass or cyst. There is no right hydronephrosis. Aorta: It is not visualized. There is too much overlying bowel gas. . US/Abdomen Limited IMPRESSION: No acute findings. Electronically Signed: Pratik Senior MD at 14:55 EST ,
== END | disposition home or self-care (01) ==
PROVIDERS: PCP Family Medicine Geriatric Medicine; Referring Provider Family Medicine Geriatric Medicine; Visit Provider Family Medicine Geriatric Medicine
DX: R74.8 Abnormal levels of other serum enzymes (principal)
CPT/HCPCS: 76705

== ENCOUNTER 2024-10-14 10:58 | Outpatient (CLI) | payer MEDICARE, OTHER, SELFPAY | END 2024-10-14 23:59 | disposition home or self-care (01) | LOC: POLAB3 10:59 | PROVIDERS: PCP Family Medicine Geriatric Medicine; Visit Provider Family Medicine Geriatric Medicine | DX: R68.83 Chills (without fever) (principal); R05.1 Acute cough | CPT/HCPCS: 87631 ==

== ENCOUNTER 2024-11-29 12:59 | Outpatient (CLI) | payer MEDICARE, OTHER, SELFPAY | END 2024-11-29 23:59 | disposition home or self-care (01) | LOC: LABSPEC 13:00 | PROVIDERS: PCP Family Medicine Geriatric Medicine; Referring Provider Family Medicine Geriatric Medicine; Visit Provider Family Medicine Geriatric Medicine | DX: J98.8 Other specified respiratory disorders (principal); R05.1 Acute cough | CPT/HCPCS: 87631 ==

== ENCOUNTER → 2024-11-29 | Outpatient (CLI) | payer MEDICARE, OTHER, SELFPAY ==
--- NOTE | 2024-11-29 10:20 | RAD_ITS ---
PROCEDURE: CHEST PA AND LATERAL 11/29/2024 REASON FOR EXAM: SOB TECHNIQUE: Frontal and lateral views of the chest. COMPARISON: 11/02/2020 FINDINGS: Lungs: Lungs clear of pneumonia and congestion. Pleura: No pleural effusions, thickening, or pneumothorax. Heart: Normal in size and configuration. Mediastinum/Tri: Unremarkable. Great vessels: Unremarkable. Bones/soft tissues: Multilevel spondylosis. RAD/Chest PA and Lateral IMPRESSION: No active cardiopulmonary disease. Reading Location: [facility]
== END | disposition home or self-care (01) ==
LOC: RAD 10:19
PROVIDERS: PCP Family Medicine Geriatric Medicine; Referring Provider Family Medicine Geriatric Medicine; Visit Provider Family Medicine Geriatric Medicine
DX: R06.02 Shortness of breath (principal)
CPT/HCPCS: 71046

== ENCOUNTER → 2024-12-09 | Outpatient (CLI) | payer MEDICARE, OTHER, SELFPAY ==
--- NOTE | 2024-12-09 10:15 | RAD_ITS ---
PROCEDURE: CHEST PA AND LATERAL 12/09/2024 REASON FOR EXAM: SOB, WHEEZING TECHNIQUE: Frontal and lateral views of the chest. COMPARISON: Chest radiograph on 11/29/2024 and 11/02/2020 FINDINGS: Hardware: None Heart: The heart size is normal. Mediastinum: The mediastinal contour is unremarkable. Lungs: There is a nodular consolidation near the posterior costophrenic angle measuring 8 mm, unchanged since 2020. Bones: Degenerative changes are identified within the thoracic spine. RAD/Chest PA and Lateral IMPRESSION: 1. No acute cardiopulmonary abnormality. 2. Nodular focus at the posterior costophrenic angle measuring 8 mm, unchanged from 2020 and possibly a calcified granuloma. Reading Location: [facility]
[2024-12-09 10:52] LABS: Absolute Lymphocyte Count 2.47 X10^3/uL (0.83-4.51); Absolute Neutrophil Count 4.9 X10^3/uL (2.0-7.7); Basophil# 0.05 X10^3/uL; Basophil% 0.6 % (0-1); Eosinophil# 0.27 X10^3/uL; Eosinophils% 3.1 % (0-5); Hematocrit 49.1 % (40-54); Hemoglobin 16.5 g/dL (13.0-16.5); Lymphocyte # 2.47 X10^3/ul (0.83-4.51); Mean Corp Hgb Conc 33.6 g/dL (32-36); Mean Corpuscular Hgb 32.2 pg (27.0-32.0); Mean Corpuscular Volume 95.9 fL (80-94); Mean Platelet Vol. 9.4 fl (6.2-12.0); Monocyte# 0.96 X10^3/uL; Monocyte% 10.9 % (0-10); NRBC Flagged by Analyzer 0 % (0-5); Neutrophil # 4.88 X10^3/uL (2.7-7.7); Neutrophil % 55.1 % (47-70); Platelet Count 246 K/mm3 (150-450); RBC Distribution Width CV 12.7 % (11.6-14.6); RBC Distribution Width SD 45.1 fl (35.1-43.9); Red Blood Count 5.12 M/mm3 (4.6-6.2); White Blood Count 8.8 K/mm3 (4.4-11.0)
[2024-12-09 11:06] LABS: D-Dimer Quantitative (DVT/PE) 0.45 FEU/ug/m (0.27-0.49)
[2024-12-09 11:11] LABS: Anion Gap 11 (5-15); BUN 15 mg/dL (4-19); BUN/Creat Ratio 15.6 RATIO (10-20); Calcium,Total 9.5 mg/dL (7.6-11.0); Carbon Dioxide 24.5 mmol/L (21.0-32.0); Chloride 102 mmol/L (98-108); Creatinine, Serum 0.98 mg/dL (0.70-1.20); EST Glomerular Filtration Rate 81 (>60); Glucose 82 mg/dL (70-99); Potassium 3.9 mmol/L (3.3-5.1); Sodium Level 137 mmol/L (133-145)
== END | disposition home or self-care (01) ==
LOC: RAD 10:14
PROVIDERS: PCP Family Medicine Geriatric Medicine; Referring Provider Family Medicine Geriatric Medicine; Visit Provider Family Medicine Geriatric Medicine
DX: R06.02 Shortness of breath (principal); R06.2 Wheezing; M79.10 Myalgia, unspecified site; R68.83 Chills (without fever)
CPT/HCPCS: 36415; 71046; 80048; 85025; 85379; 87631

== ENCOUNTER → 2024-12-30 | Outpatient (CLI) | payer MEDICARE, OTHER, SELFPAY ==
--- NOTE | 2024-12-30 12:18 | CT_ITS ---
PROCEDURE: CTA CHEST W/WO CONTRAST 12/30/2024 REASON FOR EXAM: SOB TECHNIQUE: CTA axial imaging of the chest with intravenous contrast. Multiplanar and multisequence images were obtained. PATIENT PREPARATION: Per protocol CONTRAST: Isovue 370 VOLUME: 100 mL One or more dose reduction techniques were used (e.g., Automated exposure control, adjustment of the mA and/or kV according to patient size, use of iterative reconstruction technique). RADIATION DOSE SUMMARY: CTDlvol: 12.4 mGy DLP: 402.73 mGycm . COMPARISON: Prior chest radiograph dated December 09, 2024. FINDINGS: Hardware: None Lymph nodes: No suspicious lymph nodes are seen. Heart: Coronary artery calcifications are noted. Thoracic Aorta: No thoracic aortic aneurysm or dissection. Pulmonary Vessels: No evidence of pulmonary embolism. Lungs and Airways: Mild increased markings at the lung bases suggestive of linear atelectasis and/or scarring. Pleura: No pleural effusion. Upper Abdomen: Unremarkable. Bones: Degenerative changes of the thoracic spine. CT/CTA Chest W/WO Contrast IMPRESSION: NORMAL CHEST CTA. NO EVIDENCE OF ACUTE PULMONARY EMBOLISM. Findings suggestive of mild linear atelectasis and/or scarring at the lung base s. Reading Location: [place] [id number]
== END | disposition home or self-care (01) ==
LOC: CT 11:52
PROVIDERS: PCP Family Medicine Geriatric Medicine; Referring Provider Family Medicine Geriatric Medicine; Visit Provider Family Medicine Geriatric Medicine
DX: R06.02 Shortness of breath (principal)
CPT/HCPCS: 71275; Q9967

== ENCOUNTER → 2025-01-16 | Outpatient (CLI) | payer MEDICARE, OTHER, SELFPAY ==
[2025-01-16 16:40] LABS: ALB/GLOB Ratio 1.4 RATIO (0.9-2.4); AST(SGOT) 44 U/L (<=37); Alanine Aminotransfer ALT/SGPT 50 U/L (<=46); Albumin, Serum 4.2 g/dL (3.4-4.8); Alkaline Phosphatase 82 U/L (40-129); Anion Gap 12 (5-15); BUN 18 mg/dL (4-19); CPK Total, Creatine Kinase 150 U/L (24-195); Calcium,Total 9.5 mg/dL (7.6-11.0); Carbon Dioxide 24.2 mmol/L (21.0-32.0); Chloride 104 mmol/L (98-108); Creatinine, Serum 1.02 mg/dL (0.70-1.20); EST Glomerular Filtration Rate 78 (>60); Globulin 2.9 g/dL (2.2-4.2); Glucose 148 mg/dL (70-99); Potassium 3.8 mmol/L (3.3-5.1); Pro- Brain NATRIURETIC PEPTIDE < 36 pg/mL (<=900); Protein, Total 7.1 g/dL (5.9-8.4); Sodium Level 140 mmol/L (133-145); Total Bilirubin 1.05 mg/dL (0.00-1.30); Troponin T High Sensitivity 10 ng/L (<=22)
[2025-01-18 04:07] LABS: Myoglobin, Serum 88 ng/mL (28-72)
== END | disposition home or self-care (01) ==
LOC: LAB 14:25
PROVIDERS: PCP Family Medicine Geriatric Medicine; Referring Provider Family Medicine Geriatric Medicine; Visit Provider Family Medicine Geriatric Medicine
DX: R07.9 Chest pain, unspecified (principal)
CPT/HCPCS: 36415; 80053; 82550; 83874; 83880; 84484

== ENCOUNTER → 2025-01-17 | Outpatient (CLI) | payer MEDICARE, OTHER, SELFPAY ==
[2025-01-17 17:09] LABS: Absolute Neutrophil Count 11.2 X10^3/uL (2.0-7.7); Basophil# 0.02 X10^3/uL; Basophil% 0.1 % (0-1); Eosinophil# 0.01 X10^3/uL; Eosinophils% 0.1 % (0-5); Hematocrit 39.9 % (40-54); Hemoglobin 13.7 g/dL (13.0-16.5); Lymphocyte % 11.6 % (19-41); Mean Corp Hgb Conc 34.3 g/dL (32-36); Mean Corpuscular Volume 96.1 fL (80-94); Mean Platelet Vol. 10.2 fl (6.2-12.0); Monocyte# 0.94 X10^3/uL; Monocyte% 6.8 % (0-10); NRBC Flagged by Analyzer 0 % (0-5); Neutrophil # 11.16 X10^3/uL (2.7-7.7); Neutrophil % 80.7 % (47-70); Platelet Count 218 K/mm3 (150-450); RBC Distribution Width CV 13.3 % (11.6-14.6); RBC Distribution Width SD 46.7 fl (35.1-43.9); Red Blood Count 4.15 M/mm3 (4.6-6.2); White Blood Count 13.8 K/mm3 (4.4-11.0)
== END | disposition home or self-care (01) ==
LOC: LAB 16:22
PROVIDERS: PCP Family Medicine Geriatric Medicine; Referring Provider Family Medicine Geriatric Medicine; Visit Provider Family Medicine Geriatric Medicine
DX: R07.9 Chest pain, unspecified (principal)
CPT/HCPCS: 85025

== ENCOUNTER → 2025-02-04 | Outpatient (CLI) | payer MEDICARE, OTHER, SELFPAY ==
[2025-02-04 11:09] LABS: Hematocrit 43.6 % (40-54); Hemoglobin 15.2 g/dL (13.0-16.5); Immature Granulocytes Count 0.080 X10^3/uL (0.0-0.0); Mean Corp Hgb Conc 34.9 g/dL (32-36); Mean Corpuscular Volume 96.2 fL (80-94); Mean Platelet Vol. 9.4 fl (6.2-12.0); NRBC Flagged by Analyzer 0 % (0-5); Platelet Count 258 K/mm3 (150-450); RBC Distribution Width CV 13.0 % (11.6-14.6); RBC Distribution Width SD 46.3 fl (35.1-43.9); Red Blood Count 4.53 M/mm3 (4.6-6.2); White Blood Count 7.9 K/mm3 (4.4-11.0)
[2025-02-04 12:15] LABS: AST(SGOT) 33 U/L (<=37); Alanine Aminotransfer ALT/SGPT 39 U/L (<=46); Albumin, Serum 4.1 g/dL (3.4-4.8); Alkaline Phosphatase 98 U/L (40-129); Anion Gap 11 (5-15); BUN 17 mg/dL (4-19); BUN/Creat Ratio 16.7 RATIO (10-20); Calcium,Total 9.8 mg/dL (7.6-11.0); Carbon Dioxide 26.9 mmol/L (21.0-32.0); Chloride 102 mmol/L (98-108); Globulin 3.4 g/dL (2.2-4.2); Glucose 97 mg/dL (70-99); Potassium 4.4 mmol/L (3.3-5.1); Vitamin D,25 Hydroxy 38.1 ng/mL (30-100)
[2025-02-04 18:56] LABS: Xtra Tube Kwok EXTRA TUBE
== END | disposition home or self-care (01) ==
LOC: POLAB3 10:51
PROVIDERS: Physician Assistant Medical; PCP Family Medicine Geriatric Medicine; Visit Provider Family Medicine Geriatric Medicine
DX: E55.9 Vitamin D deficiency, unspecified (principal); R53.83 Other fatigue
CPT/HCPCS: 36415; 80053; 82247; 82306; 84443; 85025

== ENCOUNTER → 2025-04-08 | Outpatient (CLI) | payer MEDICARE, OTHER, SELFPAY ==
--- OUTSIDE RECORDS SUMMARY | 2025-04-08 06:20 | XMS RPT_ITS | CCD ---
Author Organization [facility] CliniSymi Care Team Providers Care Forestry Hunter Name Role Phone Nicolle MANNING, Demetri Mccann Unavailable Liudmila PENNINGTON, Greta Eastman Unavailable Unavailable Christine Songeen Unavailable Arcadio Martinez Unavailable Neal Nash Unavailable Gravius, Kaila Unavailable Unavailable Messenger, Layla Unavailable Unavailable Unavailable Unavailable Anand Contreras Unavailable Leni Odom Unavailable Unavailable Ciesa, Kalpana Unavailable Rach Songhleen Unavailable Arcadio Martinez Unavailable Neal Nash Unavailable Anand Contreras Unavailable Leni Odom Unavailable Unavailable Gravius, Kaila Unavailable Unavailable Ciesa, Kalpana Unavailable Messenger, Layla Unavailable Unavailable Unavailable Unavailable Messiis, Harumi Y Unavailable Unavailable Gravius, Kaila Unavailable Unavailable Messenger, Layla Unavailable Unavailable Julee Seaman Unavailable Unavailable Iveth Blanco Unavailable Unavailable Christina Zaman Unavailable Unavailable DeFinis, Harumi Y Unavailable Unavailable EDGARPHILLIP RANDALL Primary Care Unavailable EDGARPHILLIP RANDALL Admitting Unavailable SHRUTHI SONG DO Consulting Unavailable PHILLIP HERNÁNDEZ Attending Unavailable PROVIDER, UNKNOWN Consulting Unavailable EDGARPHILLIP RANDALL Admitting Unavailable EDGARPHILLIP RANDALL Attending Unavailable EDGARPHILLIP RANDALL Primary Care Unavailable Shruthi Song DO Unavailable Dr. Arcadio Martinez Unavailable Neal Nash MD Unavailable Anand Contreras Unavailable Francis PASSENGER TRAIN BRAKER, Iveth Unavailable Unavailabl e Jurgen AIRLINE PILOT/FIRST OFFICER, Julee Unavailable Unavailable Yadiel VILLALOBOS, Kaila Unavailable Unavailable Khushbu PENNINGTON, Layla Unavailable Unavailable Unavailable Unavailable Lio GIRARDN, Sam Unavailable Unavailable Ciesa ADHESION TESTER, Kalpana Unavailable Jason PASSENGER TRAIN BRAKER, Iveth Unavailable Unavailable Maribell DO, Shruthi Unavailable Ciesa, Mayra Unavailable Ciesa, Mayra Unavailable Maribell DO, Shruthi Unavailable Dr. Arcadio Martinez Unavailable Charity MANNING, Neal Unavailable Anand Contreras Unavailable Lio GIRARDN, Sam Unavailable Unavailable Shavonne Galloway MA Unavailable Unavailable Charbel HELGA, Tanesha Unavailable Layla Ríos RN Unavailable Unavailable Unavailable Unavailable Slarb AIRLINE PILOT/FIRST OFFICER, Ghazala Unavailable Unavailable Maribell DOShruthi Attending Unavailable Maribell DOChristineShruthi Referring Unavailable Shruthi Song DO Consulting Unavailable Dr. Shrtuhi Song Primary Care Provider [phone] Dr. Shruthi Song Referring Provider Deanna BEAN, PA Annmarie Lenz Attending Provider Dr. Tee Ricardo Chi Primary Care Provider Dr. Dickson Church Referring Provider [phone] Dickson Church Other Provider Dr. Santino Drake Attending Provider Dr. Shruthi Song Referring Provider Deanna BEAN, PA Annmarie Lenz Attending Provider Dr. Tee Ricardo Chi Primary Care Provider Dr. Tee Ricardo MD, Chi Primary Care Provider Davion MANNING, Dr. Tee Middleton Attending Provider Davion MANNING, Dr. Tee Middleton Referring Provider Davion MANNING, Dr. Tee Middleton Primary Care Provider Davion MANNING, Dr. Tee Middleton Attending Provider [phone] Davion MANNING, Dr. Tee Middleton Referring Provider Davion MANNING, Dr. Tee Middleton Primary Care Provider Davion MANNING, Dr. Tee Middleton Attending Provider [phone] Janey MANNING, Dr. Rodriguez Attending Provider Michael Toth Attending Unavailable Michael Toth Referring Unavailable Davion, Tee Chi Primary Care Unavailable Sibilia, Dong V Attending Unavailable Sibilia, Dong V Referring Unavailable Davion, Tee Chi Primary Care Unavailable Davion, Tee Chi Attending Unavailable Davion, Tee Chi Referring Unavailable Davion, Tee Chi Primary Care Unavailable Davion, Tee Chi Attending Unavailable Davion, Tee Chi Referring Unavailable Davion, Tee Chi Primary Care Unavailable Michael Toth Attending Unavailable Davion, Tee Chi Referring Unavailable Davion, Tee Chi Primary Care Unavailable Davion, Tee Chi Attending Unavailable Davion, Tee Chi Primary Care Unavailable Davion, Tee Chi Attending Unavailable Davion, Tee Chi Referring Unavailable Davion, Tee Chi Primary Care Unavailable Davion, Tee Chi Attending Unavailable Davion, Tee Chi Primary Care Unavailable Davion, Tee Chi Referring Unavailable Davion, Tee Chi Attending Unavailable Davion, Tee Chi Primary Care Unavailable Davion, Tee Chi Referring Unavailable Davion, Tee Chi Primary Care Unavailable Davion, Tee Chi Referring Unavailable Davion, Tee Chi Attending Unavailable Davion, Tee Chi Referring Unavailable Davion, Tee Chi Primary Care Unavailable Davion, Tee Chi Attending Unavailable Davion, Tee Chi Referring Unavailable Davion, Tee Chi Primary Care Unavailable Davion, Tee Chi Attending Unavailable Davion, Tee Chi Primary Care Unavailable Davion, Tee Chi Attending Unavailable Davion, Tee Chi Attending Unavailable Davion, Tee Chi Referring Unavailable Davion, Tee Chi Primary Care Unavailable Allergies Allergy Classification Reported Allergen(s) Allergy Type Date of Onset Reaction(s) Facility NEGATED: Highlighted row has been ruled out! (1 source) allergy to substance 12201 6 [facility] Work Phone: NEGATED: Highlighted row has been ruled out! (1 source) drug allergy [facility] Work Phone: NEGATED: Highlighted row has been ruled out! (1 source) Allergy to substance (finding) [facility]; [facility] Work Phone: NEGATED: Highlighted row has been ruled out! (1 source) Allergy to drug (finding) [facility]; [facility] Work Phone: NEGATED: Highlighted row has been ruled out! (1 source) Allergy to substance (finding) [facility]; [facility] Work Phone: NEGATED: Highlighted row has been ruled out! (1 source) Allergy to drug (finding) [facility]; [facility] Work Phone: NEGATED: Highlighted row has been ruled out! (1 source) Allergy to substance (finding) [facility]; [facility] Work Phone: NEGATED: Highlighted row has been ruled out! (1 source) Allergy to drug (finding) [facility]; [facility] Work Phone: NEGATED: Highlighted row has been ruled out! (1 source) Allergy to substance (finding) [facility]; [facility] Work Phone: NEGATED: Highlighted row has been ruled out! (1 source) Allergy to drug (finding) [facility]; [facility] Work Phone: Medications Current Medications Medication Drug Class(es) Dates Sig (Normalized) Sig (Original) aspirin 81 mg chewable tablet (20 sources) Nonsteroidal Anti-inflammatory Drug Start: 12-24-2015 take 1 tablet by mouth once daily Aspirin 81 MG tablet,chewable Active 81 mg PO DAILY@0800 December 24, 2015 12:00am Start: 02-17-2014 take 1 tablet by caitlin once daily ASPIRIN LOW DOSE 81 MG TBEC One tablet by mouth daily ASPIRIN [id number] Demetri Valverde MD Start: 12-24-2010 End: 02-17-2014 take 1 tablet by mouth at bedtime ECOTRIN LOW STRENGTH 81 MG TBEC One tablet by mouth at bedtime. ASPIRIN [id number] Dora Smiley Start: 12-24-2010 End: 02-17-2014 take 1 tablet by mouth once daily ASPIRIN EC 81 MG TBEC One tablet by mouth daily ASPIRIN [id number] Annmarie Clark RN End: 11-02-2006 End: 11-02-2006 ASPIRIN, 325MG (Oral Tablet) for 0 days Refills: 0 Ordered: 02-Nov-2006 BRITNEY Hazel LPN End : 02-Nov-2006 Inactive Wzpdvaibzt-Kotsehsy-Bxlobxxr ol (1 source) Corticosteroid, beta2-Adrenergic Agonist Start: 02-24-2025 Nrezvemmfz-Ehvpvomx-Vkddhojo ol (Breztri Aerosphere) 160-9-4.8 mcg/actuation HFA aerosol inhaler Active 2 NMA INHALATION TWICE A DAY as needed February 24, 2025 12:00am doxycycline monohydrate 50 m g oral tablet (16 sources) Tetracycline-clas s Drug Start: 02-24-2025 t a k e 1 t a b l e t b y m o u t h o n c e d a i l y Doxycycline Monohydrate 50 mg tablet Active 50 mg PO daily February 24, 2025 12:00am Start: 06-02-2023 End: 02-29-2024 take 1 tablet by mouth twice daily Doxycycline Monohydrate 50 mg tablet Discontinued 50 mg PO TWICE A DAY June 02, 2023 1:00am February 29, 2024 2:54pm Start: 08-26-2022 Multivitamin With Folic Acid (9 sources) Start: 12-24-2015 take 1 tablet by mouth once daily Multivitamin With Folic Acid Active 1 TABLET PO DAILY December 24, 2015 12:00am Start: 12-24-2015 take 1 tablet by caitlin once daily Multivitamin With Folic Acid Active 1 TABLET PO DAILY December 23, 2015 11:00pm Multivitamin With Folic Acid 1 TABLET tablet (8 sources) Start: 12-24-2015 take 1 tablet by mouth once daily Multivitamin With Folic Acid 1 TABLET tablet Active 1 {tbl} PO DAILY December 24, 2015 12:00am nitroglycerin 0.4 mg sublingual tablet (20 sources) Nitrate Vasodilator Start: 07-11-2017 End: 11-03-2021 Nitroglycerin 0.4 mg tablet, sublingual Active 0.4 mg SL every 5 to 15 minutes as needed for chest pain 17 08November 03, 2021 2:54pm Start: 07-11-2017 End: 11-03-2021 Nitroglycerin Active 0.4 MG SL every 5 to 15 minutes November 03, 2021 1:54pm Start: 03-20-2013 NITROGLYCERIN 0.4 MG SUBL 1 tablet under the tongue every 5 minutes times 3 as needed for chest pain. NITROGLYCERIN [id number] Annmarie Clark RN Start: 01-31-2013 NITROGLYCERIN 0.4 MG/HR PT24 1 tablet under tongue every 5 min up to 3 X NITROGLYCERIN [id number] JHONY MuroC levothyroxine sodium 0.112 mg oral tablet (20 sources) l-Thyroxine Start: 02-29-2024 Levothyroxine 112 mcg tablet Active 88 ug PO DAILY February 29, 2024 2:53pm Start: 01-02-2023 End: 02-29-2024 Levothyroxine 112 mcg tablet Discontinued 137 ug PO DAILY January 02, 2023 2:32pm February 29, 2024 2:54pm Start: 01-02-2023 take 137 ug by mouth once monique y Levothyroxine Active 137 MCG PO DAILY January 02, 2023 1:32pm Start: 09-16-2022 Start: 06-21-2022 Start: 02-23-2022 take 1 tablet by caitlin th once daily Synthroid 137 MCG Oral Tablet 1 Tablet qd for 30 days Quantity: 30 {Tablet} Refills: 3 Ordered: 23-Feb-2022 Shruthi Song DO, DO, Kathleen Start : 23-Feb-2022 Active Start: 01-31-2022 take 1 tablet by caitlin th once daily Synthroid 125 MCG Oral Tablet 1 Tablet qd for 30 days Quantity: 30 {Tablet} Refills: 0 Ordered: 31-Jan-2022 Shruthi Song DO, DO, Kathleen Start : 31-Jan-2022 Active Comments: needs an appt for refill Start: 01-05-2022 take 1 tablet by caitlin th once daily Synthroid 125 MCG Oral Tablet 1 Tablet qd for 30 days Quantity: 30 {Tablet} Refills: 0 Ordered: 05-Jan-2022 Shruthi Song DO, DO, Kathleen Start : 05-Jan-2022 Active Comments: needs an appt for refill Start: 06-07-2021 take 1 tablet by caitlin th once daily Synthroid 125 MCG Oral Tablet 1 Tablet qd for 30 days Quantity: 30 {Tablet} Refills: 1 Ordered: 07-Jun-2021 Shruthi Song DO, DO, Kathleen Start : 07-Jun-2021 Active Comments: needs an appt for refill Start: 12-14-2020 take 1 tablet by caitlin th once daily Synthroid 125 MCG Oral Tablet 1 Tablet qd for 30 days Quantity: 30 {Tablet} Refills: 3 Ordered: 14-Dec-2020 Shruthi Song DO, DO, Kathleen Start : 14-Dec-2020 Active Comments: needs an appt for refill Start: 11-02-2020 End: 01-02-2023 take 1 tablet by mouth once daily Levothyroxine 112 mcg tablet Discontinued 112 ug PO DAILY November 02, 2020 12:00am January 02, 2023 2:33pm Start: 09-18-2020 take 1 tablet by caitlin th once daily Synthroid 125 MCG Oral Tablet 1 Tablet qd for 30 days Quantity: 30 {Tablet} Refills: 3 Ordered: 18-Sep-2020 Shruthi Song DO, DO, Kathleen Start : 18-Sep-2020 Active Comments: needs an appt for refill Start: 05-12-2020 take 1 tablet by caitlin th once daily Synthroid 125 MCG Oral Tablet 1 Tablet qd for 30 days Quantity: 30 {Tablet} Refills: 3 Ordered: 12-May-2020 Start : 12-May-2020 Active Comments: needs an appt for refill Start: 04-20-2020 take 1 tablet by caitlin th once daily Synthroid 125 MCG Oral Tablet 1 Tablet qd for 30 days Quantity: 30 {Tablet} Refills: 0 Ordered: 20-Apr-2020 Shruthi Song DO, DO, Kathleen Start : 20-Apr-2020 Active Comments: needs an appt for refill Start: 04-09-2020 take 1 tablet by caitlin th once daily Synthroid 125 MCG Oral Tablet 1 Tablet qd for 30 days Quantity: 30 {Tablet} Refills: 0 Ordered: 09-Apr-2020 Shruthi Song DO, DO, Kathleen Start : 09-Apr-2020 Active Comments: needs an appt for refill Start: 07-15-2019 End: 11-02-2020 Levothyroxine 100 mcg capsul e Discontinued 112 ug PO daily 0 July 15, 2019 3:38pm November 02, 2020 3:34pm Start: 07-15-2019 take 1 tablet by caitlin th once daily Synthroid 125 MCG Oral Tablet 1 Tablet qd for 90 days Quantity: 90 {Tablet} Refills: 2 Ordered: 15-Jul-2019 Shruthi Song DO, DO, Kathleen Start : 15-Jul-2019 Active Start: 05-29-2019 take 1 tablet by caitlin th once daily Synthroid 112 MCG Oral Tablet 1 Tablet qd for 30 days Quantity: 30 {Tablet} Refills: 0 Ordered: 29-May-2019 Shruthi Song DO, DO, Kathleen Start : 29-May-2019 Active Comments: Needs appt before refills Start: 11-14-2018 take 1 tablet by caitlin th once daily Synthroid 112 MCG Oral Tablet 1 Tablet qd for 90 days Quantity: 90 {Tablet} Refills: 1 Ordered: 14-Nov-2018 Shruthi Song DO, DO, Kathleen Start : 14-Nov-2018 Active Start: 05-09-2018 take 1 tablet by caitlin th once daily Synthroid 112 MCG Oral Tablet 1 Tablet qd for 90 days Quantity: 90 {Tablet} Refills: 1 Ordered: 09-May-2018 Shruthi Song DO, DO, Kathleen Start : 09-May-2018 Active Start: 05-02-2018 take 1 tablet by caitlin th once daily Synthroid 112 MCG Oral Tablet 1 Tablet qd for 30 days Quantity: 30 {Tablet} Refills: 1 Ordered: 02-May-2018 Shruthi Song DO, DO, Kathleen Start : 02-May-2018 Active Start: 07-12-2017 End: 07-15-2019 take 1 capsule by mouth once daily Levothyroxine 100 mcg capsule Discontinued 100 ug PO daily 0 July 12, 2017 1:00am July 15, 2019 3:38pm Start: 07-11-2017 End: 07-12-2017 take 1 capsule by mouth once daily Levothyroxine 125 mcg capsule Discontinued 125 ug PO daily 0 July 11, 2017 1:00am July 12, 2017 5:08pm Start: 12-24-2015 End: 07-11-2017 Levothyroxine 75 MCG tablet Discontinued 125 ug PO DAILY December 24, 2015 12:00am July 11, 2017 9:13am Start: 12-24-2015 End: 07-11-2017 take 125 ug by mouth once daily Levothyroxine Disconti nued 125 MCG PO DAILY December 23, 2015 11:00pm July 11, 2017 8:13am Start: 07-08-2013 take 1 tablet by caitlin th once daily LEVOTHYROXINE SODIUM 88 MCG TABS One tablet by mouth daily LEVOTHYROXINE SODIUM [id number] Demetri Valverde MD Start: 07-08-2013 take 1 tablet by caitlin th once daily LEVOTHYROXINE SODIUM 125 MCG TABS One tablet by mouth daily LEVOTHYROXINE SODIUM [id number] Annmarie Clark RN Start: 11-10-2011 End: 06-29-2012 Start: 12-24-2010 take 1 tablet by caitlin th once daily LEVOTHYROXINE SODIUM 75 MCG TABS One tablet by mouth daily LEVOTHYROXINE SODIUM [id number] Demetri Valverde MD Start: 12-24-2010 take 1 tablet by caitlin th once daily SYNTHROID 75 MCG TABS 1 tablet by mouth daily except Monday LEVOTHYROXINE SODIUM [id number] Dora Smiley Start: 12-24-2010 take 1 tablet by caitlin th once daily SYNTHROID 75 MCG TABS 1 tablet by mouth daily except Monday LEVOTHYROXINE SODIUM [id number] Dora Smiley Comment on above: Needs appt before re fills needs an appt for re fill Completed/Discontinued Medications Medication Drug Class(es) Dates Sig (Normalized) Sig (Original) acetaminophen 325 mg / HYDROcodone bitartrate 5 mg oral tablet (20 sources) Opioid Agonist Start: 02-09-2018 End: 02-16-2018 Start: 02-09-2018 End: 02-16-2018 take 1 tablet by mouth every eight hours as needed [place] 5-325 MG Oral Tablet 1 (one) Tablet q 8 hrs prn for 7 days Quantity: 21 {Tablet} Refills: 0 Ordered: 09-Feb-2018 Layla Ríos RN Start : 09-Feb-2018 End : 16-Feb-2018 Inactive Comments: twenty one dx back pain M54.5 Comment on above: twenty one dx back p ain M54.5 [id number] 200 actuat albuter ol 0.09 mg/actuat metered dose inhaler (20 sources) beta2-Adrenergic Agonist Start: 06-22-2012 End: 06-29-2012 Start: 06-22-2012 End: 06-29-2012 take 2 puff(s) by inhalation three times daily PROAIR HFA, 108 (90 Base)MCG/ACT (Inhalation Aerosol Solution) 2 (two) Puff(s) tid for 0 days Quantity: 1 {Aerosol_Soln} Refills: 0 Ordered: 29-Jun-2012 BRITNEY Hazel LPN Start : 22-Jun-2012 End : 29-Jun-2012 Inactive Start: 06-22-2012 End: 06-29-2012 take 2 puff(s) by inhalation three times daily PROAIR HFA, 108 (90 Base)MCG/ACT (Inhalation Aerosol Solution) 2 (two) Puff(s) tid for 0 days Quantity: 1 {Aerosol_Soln} Refills: 0 Ordered: 29-Jun-2012 BRITNEY Hazel LPN Start : 22-Jun-2012 End : 29-Jun-2012 Inactive amitriptyline hydrochloride 25 mg oral tablet (20 sources) Tricyclic Antidepressant Start: 12-24-2015 End: 06-02-2023 take 1 tablet by mouth at bedtime Amitriptyline 25 MG tablet Discontinued 25 mg PO AT BEDTIME December 24, 2015 12:00am June 02, 2023 2:30pm Start: 12-24-2010 AMITRIPTYLINE HCL 50 MG TABS 1/2 tablet every night at bedtime (For insomnia) AMITRIPTYLINE HCL [id number] Dora Smiley amoxicillin 875 mg / clavula radha 125 mg oral tablet (20 sources) Penicillin-class Antibacterial Start: 11-24-2017 End: 12-15-2017 Start: 11-24-2017 End: 12-15-2017 take 1 tablet by mouth twice daily Augmentin 875-125 MG Oral Tablet 1 Tablet bid for 21 days Quantity: 42 {Tablet} Refills: 0 Ordered: 24-Nov-2017 Shruthi Song DO Maribell DO Shruthi Start : 24-Nov-2017 End : 15-Dec-2017 Inactive atorvastatin 40 mg oral tablet (20 sources) HMG-CoA Reductase Inhibitor Start: 06-02-2023 End: 06-12-2024 take 1 tablet by mouth once daily Atorvastatin 40 mg tablet Discontinued 40 mg PO DAILY 90 3 June 22, 2023 5:35pm June 12, 2024 3:06pm Start: 06-03-2022 End: 01-02-2023 take 1 tablet by mouth at bedtime Atorvastatin 40 mg tablet Discontinued 40 mg PO AT BEDTIME 90 3 June 27, 2022 1:48pm January 02, 2023 2:45pm Start: 08-11-2006 End: 11-02-2006 azithromycin 250 mg oral tab let (20 sources) Macrolide Antimicrobial Start: 08-17-2022 End: 08-26-2022 Start: 05-11-2020 End: 07-09-2020 Start: 10-19-2017 End: 11-16-2017 take 1 tablet by mouth once daily Azithromycin 500 MG Oral Tablet 1 (one) Tablet qd for 0 days Quantity: 5 {Tablet} Refills: 0 Ordered: 16-Nov-2017 Layla Ríos RN Start : 19-Oct-2017 End : 16-Nov-2017 Inactive Start: 07-15-2016 End: 10-25-2016 Zithromax Z-Vicki 250 MG Oral Tablet 1 Tablet uad for 0 days Quantity: 1 {Package} Refills: 0 Ordered: 25-Oct-2016 Ghazala Mota LPN Start : 15-Jul-2016 End : 25-Oct-2016 Discontinued bacitracin (1 source) Start: 02-17-2014 take 1 tablet by mouth once daily ASPIRIN LOW DOSE 81 MG TBEC One tablet by mouth daily ASPIRIN [id number] Demetri Valverde MD budesonide 0.032 mg/actuat metered dose nasal spray (20 sources) Corticosteroid Start: 10-25-2016 End: 06-12-2019 Start: 10-25-2016 End: 06-12-2019 take 2 spray(s) nasal route once daily Rhinocort Allergy 32 MCG/ACT Nasal Suspension 2 (two) [place] In each nostril Daily for 0 days Quantity: 1 {Bottle} Refills: 0 Ordered: 12-Jun-2019 Kaila Cotto CMA Start : 25-Oct-2016 End : 12-Jun-2019 Inactive Start: 10-25-2016 Rhinocort Jesus Manuel rgy 32 MCG/ACT Nasal Suspension 2 (two) [place] In each nostril Daily for 0 days Quantity: 1 {Bottle} Refills: 0 Ordered: 16-Nov-2017 Layla Ríos LPN Start : 25-Oct-2016 Active cetirizine hydrochloride 10 mg oral capsule (20 sources) Histamine-1 Receptor Antagonist Start: 12-26-2013 End: 10-06-2015 24 hr clarithromycin 500 mg extended release oral tablet (20 sources) Macrolide Antimicrobial Start: 06-22-2012 End: 06-29-2012 Start: 06-22-2012 End: 06-29-2012 take 2 tablets by mouth once daily BIAXIN XL PAC, 500MG (Oral Tablet Extended Release 24 Hour) 2 (two) Tablet ER 24HR daily for 14 days Quantity: 28 {Tablet_ER_24HR} Refills: 0 Ordered: 29-Jun-2012 BRITNEY Hazel LPN Start : 22-Jun-2012 End : 29-Jun-2012 Inactive Start: 06-22-2012 End: 06-29-2012 take 2 tablets by mouth once daily BIAXIN XL PAC, 500MG (Oral Tablet Extended Release 24 Hour) 2 (two) Tablet ER 24HR daily for 14 days Quantity: 28 {Tablet_ER_24HR} Refills: 0 Ordered: 29-Jun-2012 BRITNEY Hazel LPN Start : 22-Jun-2012 End : 29-Jun-2012 Inactive clopidogrel 75 mg oral tablet (20 sources) P2Y12 Platelet Inhibitor Start: 03-23-2015 End: 03-24-2015 PLAVIX 75 MG TABS four tablets the evening before your procedure then one tablet daily CLOPIDOGREL BISULFATE [id number] Cookie Leary RN Start: 12-24-2010 End: 03-06-2015 take 1 tablet by mouth once daily PLAVIX 75 MG TABS One tablet by mouth daily CLOPIDOGREL BISULFATE [id number] James Nevarez MD codeine phosphate 2 mg/ml / guaiFENesin 20 mg/ml oral solution (20 sources) Opioid Agonist Start: 06-22-2012 End: 06-29-2012 Start: 06-22-2012 End: 06-29-2012 CHERATUSSIN AC, 100-10MG/5ML (Oral Syrup) 1 Teaspoon(s) q4-6 hrs prn for cough for 0 days Quantity: 6 {Ounce(s)} Refills: 0 Ordered: 29-Jun-2012 BRITNEY Hazel LPN Start : 22-Jun-2012 End : 29-Jun-2012 Inactive codeine phosphate 2 mg/ml / guaiFENesin 20 mg/ml / pseudoephedrine hydrochloride 6 mg/ml oral solution (20 sources) alpha-Adrenergic Agonist, Opioid Agonist Start: 07-15-2016 End: 10-25-2016 Start: 07-15-2016 End: 10-25-2016 take 1-2 [tsp_us] by mouth once daily at bedtime as needed for cough Cheratussin DAC 30-10-100 MG/5ML Oral Solution 1-2 Teaspoon qhs prn cough for 0 days Quantity: 6 {Ounce} Refills: 0 Ordered: 15-Jul-2016 Ghazala Mota LPN Start : 15-Jul-2016 End : 25-Oct-2016 Discontinued Comments: This order discontinued per [facility]. Comment on above: This order discontin ued per [employer]. colestipol hydrochloride 1000 mg oral tablet (20 sources) Bile Acid Sequestrant Start: take 2 tablets by mouth twice daily Colestipol HCl 1 GM Oral Tablet 2 (two) Tablet bid for 0 days Quantity: 360 {Tablet} Refills: 0 Ordered: 23-Feb-2022 Kaila Cotto CMA Start : 23-Feb-2022 Active Start: 09-25-2017 End: 06-01-2022 take 2 g by mouth twice daily Colestipol Discontinued 2 GM PO TWICE A DAY 120 November 12, 2020 3:36pm December 04, 2020 2:22pm Start: 07-05-2012 End: 09-25-2017 take 2 tablets by mouth twice daily Colestipol Discontinued 2 TABLET PO TWICE A DAY December 23, 2015 11:00pm September 25, 2017 2:43pm Start: 07-05-2012 take 2 tablets by mo [facility] twice daily COLESTID 1 GM TABS two tablet by mouth twice daily COLESTIPOL HCL [id number] Demetri Valverde MD Start: 07-14-2011 End: 06-01-2022 Colestipol 1 gram tablet Discontinued 2 g PO TWICE A DAY 120 11 November 12, 2020 4:36pm December 04, 2020 3:22pm Start: 07-14-2011 take 1 tablet by caitlin twice daily COLESTID 1 GM TABS One tablet by mouth twice daily COLESTIPOL HCL [id number] Qasim Galan MD cyclobenzaprine hydrochlorid e 10 mg oral tablet (20 sources) Muscle Relaxant Start: 10-21-2014 End: 10-06-2015 Start: 04-01-2010 End: 06-20-2011 desoximetasone 2.5 mg/ml top ical cream (20 sources) Corticosteroid Start: 03-29-2018 End: 06-12-2019 Start: 03-29-2018 End: 06-12-2019 Desoximetasone 0.25 % [employer] al Cream 1 (one) Application Application To affected area BID for 0 days Quantity: 1 {Tube} Refills: 0 Ordered: 12-Jun-2019 Kaila Cotto CMA Start : 29-Mar-2018 End : 12-Jun-2019 Inactive Start: 06-29-2012 End: 01-21-2013 Start: 06-29-2012 End: 01-21-2013 TOPICORT, 0.05% (External Cr eam) 1 Cream bid for 0 days Quantity: 1 {Cream} Refills: 0 Ordered: 21-Jan-2013 Jocelyn Armstrong LPN Start : 29-Jun-2012 End : 21-Jan-2013 Inactive dextromethorphan hydrobromid e 10 mg / guaiFENesin 200 mg oral capsule (20 sources) Uncompetitive F-jxsmlt-G-aspartate Receptor Antagonist, Sigma-1 Agonist Start: 10-26-2012 End: 01-21-2013 Start: 10-26-2012 End: 01-21-2013 take 1 capsule by mouth once daily CORICIDIN HBP CONGESTION/COUGH, 10-200MG (Oral Capsule) 1 Capsule daily for 0 days Quantity: 30 {Capsule} Refills: 0 Ordered: 21-Jan-2013 Jocelyn Armstrong LPN Start : 26-Oct-2012 End : 21-Jan-2013 Inactive diclofenac potassium 50 mg o ral tablet (20 sources) Nonsteroidal Anti-inflammatory Drug Diclofenac Sodiu m 1 % Transdermal Gel 1 qd (1 %) Inactive ezetimibe 10 mg oral tablet (10 sources) Dietary Cholesterol Absorption Inhibitor Start: 07-04-2011 End: 01-16-2012 take 1 tablet by mouth once daily ZETIA 10 MG TABS One tablet by mouth daily EZETIMIBE [id number] Qasim Galan MD famotidine 20 mg chewable tablet (20 sources) Histamine-2 Receptor Antagonist Start: 12-26-2013 End: 10-06-2015 12 hr guaiFENesin 600 mg extended release oral tablet (20 sources) Start: 10-26-2012 End: 01-21-2013 hydrocortisone acetate 25 mg rectal suppository (20 sources) Corticosteroid Start: 06-20-2018 End: 06-27-2018 Start: 02-17-2014 take 1 tablet by caitlin th once daily ASPIRIN LOW DOSE 81 MG TBEC One tablet by mouth daily ASPIRIN [id number] Demetri Valverde MD Start: 11-02-2006 End: 10-09-2008 Start: 11-02-2006 End: 10-09-2008 ANUSOL-HC, 2.5% (Rectal Crea m) Cream TID/PRN for 0 days Quantity: 20 {Cream} Refills: 0 Ordered: 02-Nov-2006 BRITNEY Hazel LPN Start : 02-Nov-2006 End : 09-Oct-2008 Inactive losartan potassium 25 mg oral tablet (10 sources) Angiotensin 2 Receptor Luh Start: 03-24-2015 End: 10-30-2015 take 1 tablet by mouth once daily COZAAR 25 MG TABS One tablet by mouth daily LOSARTAN POTASSIUM [id number] Demetri Valverde MD meloxicam 7.5 mg oral tablet (20 sources) Nonsteroidal Anti-inflammatory Drug Start: 10-21-2014 End: 10-06-2015 Comment on above: with food MEDROL (VICKI), 4MG (Oral Tablet) (20 sources) Corticosteroid Start: 05-27-2014 End: 10-21-2014 Start: 05-27-2014 End: 10-21-2014 take 1 tablet by mouth at mealtime MEDROL (VICKI), 4MG (Oral Tablet) 1 (one) Tablet TAD for 0 days Quantity: 1 {Package} Refills: 0 Ordered: 21-Oct-2014 Nathaniel MJJocelyn Start : 27-May-2014 End : 21-Oct-2014 Discontinued Comments: with food Comment on above: with food 24 hr metoprolol succinate 25 mg extended release oral tablet (20 sources) beta-Adrenergic Luh Start: 12-24-2010 End: 05-30-2023 take 1 tablet by mouth once daily Metoprolol Succinate 25 MG tablet Discontinued 25 mg PO DAILY December 24, 2015 12:00am May 30, 2023 4:41pm Start: 12-24-2010 take 1 tablet by caitlin th once daily TOPROL XL 25 MG [id number] One tablet by mouth daily METOPROLOL SUCCINATE [id number] Estuardo Mendoza MD Start: 12-24-2010 take 1 tablet by caitlin th once daily TOPROL XL 25 MG [id number] One tablet by mouth daily METOPROLOL SUCCINATE [id number] Estuardo Mendoza MD naproxen sodium 220 mg oral capsule (20 sources) Nonsteroidal Anti-inflammatory Drug Start: 12-26-2013 End: 10-06-2015 pravastatin sodium 80 mg oral tablet (20 sources) HMG-CoA Reductase Inhibitor Start: 01-02-2023 End: 06-02-2023 take 1 tablet by mouth once daily Pravastatin 80 mg tablet Discontinued 80 mg PO DAILY January 02, 2023 12:00am June 02, 2023 2:30pm Start: 12-24-2010 End: 06-03-2022 take 1 tablet by mouth at bedtime Pravastatin 80 MG tablet Discontinued 80 mg PO AT BEDTIME December 24, 2015 12:00am December 04, 2020 3:22pm predniSONE 10 mg oral tablet (20 sources) Corticosteroid Start: 12-14-2020 End: 12-21-2020 Start: 12-14-2020 End: 12-21-2020 take 3 tablets by mouth once daily at mealtime predniSONE 10 MG Oral Tablet 3 (three) Tablet daily for 7 days Quantity: 21 {Tablet} Refills: 0 Ordered: 14-Dec-2020 Mayra Vivas Start : 14-Dec-2020 End : 21-Dec-2020 Inactive Comments: take with food Start: 03-29-2018 End: 04-05-2018 take 3 tablets by mouth once daily at mealtime PredniSONE 10 MG Oral Tablet 3 (three) Tablet Tablet daily for 7 days Quantity: 21 {Tablet} Refills: 0 Ordered: 29-Mar-2018 Kaila Cotto CMA Start : 29-Mar-2018 End : 05-Apr-2018 Inactive Comments: take with food Start: 02-29-2016 End: 03-21-2016 Start: 02-29-2016 End: 03-21-2016 PredniSONE 20 MG Oral Tablet tad Tablet uad for 21 days Refills: 0 Ordered: 29-Feb-2016 Shruthi oSng DO, DO, Kathleen Start : 29-Feb-2016 End : 21-Mar-2016 Inactive Comments: 2tabs in am & 1tab in afternoon for 2days then 2tabs in am & 1/2 tab in afternoon for 2-days then 1.5 tabs in am and 1/2 tab in afternoon for 4days then 1tab in am and 1/2 tab inafternoon for 4days then 1tab in am for 5days then 1/2 tabs in am for 4days then stop Comment on above: 2tabs in am & 1tab i n afternoon for 2days then 2tabs in am & 1/2 tab in afternoon for 2-days then 1.5 tabs in am and 1/2 tab in afternoon for 4days then 1tab in am and 1/2 tab inafternoon for 4days then 1tab in am for 5days then 1/2 tabs in am for 4days then stop take with food promethazine hydrochloride 2 5 mg oral tablet (20 sources) Phenothiazine Start: 11-19-2007 End: 10-09-2008 tadalafil 10 mg oral tablet (20 sources) Phosphodiesterase 5 Inhibitor Start: 04-15-2010 End: 01-21-2013 60 actuat testosterone 12.5 mg/actuat topical gel (20 sources) Androgen Start: 01-09-2012 End: 06-29-2012 Start: 01-09-2012 End: 06-29-2012 ANDROGEL PUMP, 1.25 GM/ACT(1 %) (Transdermal Gel) uad Gel 4 pumps daily for 0 days Quantity: 30 {Gel} Refills: 6 Ordered: 29-Jun-2012 BRITNEY Hazel LPN Start : 09-Jan-2012 End : 29-Jun-2012 Inactive Comments: thirty days Comment on above: thirty days tiZANidine 2 mg oral tablet (20 sources) Central alpha-2 Adrenergic Agonist Start: 02-09-2018 End: 02-23-2018 Problems Active Problems Problem Classification Problem Date Documented Da te Episodic/Chronic Administrative/social admission (3 sources) Medical examinations/reports status; Translations: [Physical exam WITHOUT abnormal findings (Renamed from Encounter for routine adult health examination without abnormal findings)] 04-04-2018 Episodic Allergic reactions (20 sources) Contact dermatitis due to plants; Translations: [Contact dermatitis and other eczema due to plants [except food]] Resolved: 05-11-2020 04-04-2018 Episodic Comment on above: or poison Marlene or oak Anxiety disorders (20 sources) Anxiety; Translations: [Anxiety] 04-04-2018 Chronic Comment on above: stabel stable Cardiac dysrhythmias (20 sources) Palpitations; Translations: [Palpitations] Onset: 12-24-2010 12-24-2010 Episodic Chronic obstructive pulmonary disease and bronchiectasis (20 sources) Bronchitis; Translations: [Bronchitis] 04-04-2018 Episodic Chronic obstructive pulmonary disease and bronchiectasis (20 sources) Chronic obstructive pulmonary disease and bronchiectasis Coronary atherosclerosis and other heart disease (20 sources) Atherosclerotic heart disease of [place] coronary artery without angina pectoris; Translations: [Coronary atherosclerosis] Onset: 12-24-2010 07-01-2016 Chronic Comment on above: MRA neck good 6-16ek g at cardio( moodispaw) in 07/09 PTCA/ILENE of the prox imal to mid LAD 11/30/10 Disorders of lipid metabolism (20 sources) Hyperlipidemia; Translations: [Hypercholesterolemia ] Onset: 12-24-2010 12-24-2010 Chronic E Codes: Fall (20 sources) Fall; Translations: [Fall] Resolved: 10-06-2015 10-06-2015 Episodic Comment on above: blacked out in [facility] Essential hypertension (20 sources) Hypertensive disorder; Translations: [Essential hypertension] Onset: 12-24-2010 12-24-2010 Chronic Headache, including migraine (20 sources) Other headache syndrome; Translations: [Headache] Resolved: 12-26-2013 12-26-2013 Episodic Comment on above: better now and think dehydration. MRI heada and neck. Hemorrhoids (20 sources) External hemorrhoids without mention of complication; Translations: [Hemorrhoids] Resolved: 02-05-2009 06-29-2012 Episodic Comment on above: hard may need remove d, IF severe pain to surgery right away itching painful hemo rroids Immunizations and screening for infectious disease (20 sources) Need for prophylactic vaccination and inoculation against influenza; Translations: [Contact with and (suspected) exposure to other viral communicable diseases] Resolved: 12-26-2013 07-09-2020 Episodic Lymphadenitis (20 sources) Lymphadenopathy; Translations: [Adenopathy] Resolved: 10-06-2015 10-06-2015 Episodic Malaise and fatigue (20 sources) Fatigue; Translations: [Exhaustion] Onset: 06-01-2011 Resolved: 02-23-2022 04-04-2018 Episodic Comment on above: stable better slowly recover from heat stroke Nausea and vomiting (20 sources) Nausea and vomiting; Translations: [Nausea and vomiting] Resolved: 02-05-2009 06-29-2012 Episodic Nonspecific chest pain (20 sources) Chest pain, unspecified; Translations: [Precordial pain] Onset: 12-24-2010 12-24-2010 Episodic Nutritional deficiencies (1 source) Vitamin D deficiency, unspecified; Translations: [Vitamin D deficiency, unspecified] Onset: 02-10-2025 Chronic Open wounds of extremities (20 sources) Multiple and unspecified open wound of upper limb, without mention of complication; Translations: [Arm/Upper Limb] Resolved: 06-29-2012 06-29-2012 Episodic Comment on above: skin tear. on right forearm. the arm sahu swelling by wound but no pain to palp bones xray negative. if pain come and arm not better in one week then rexray. small hematoma and tear on sternum. same recommendation. ice rest nsaids. Other aftercare (17 sources) H/O: high risk medication; Translations: [Other prison (current) drug therapy] 12-13-2017 Episodic Other and unspecified benign neoplasm (20 sources) History of polyp of colon; Translations: [History of colon polyps] Resolved: 03-23-2009 06-09-2015 Episodic Other and unspecified benign neoplasm (20 sources) Polyp of colon; Translations: [Colon polyp] 04-04-2018 Episodic Comment on above: 8-14 smaller polyps not removed recheck 5 yrs last scope ? Other connective tissue disease (20 sources) Spasm; Translations: [Muscle spasm] Resolved: 02-23-2018 02-23-2018 Episodic Other connective tissue disease (20 sources) Swelling of finger ; Translations: [Swelling of finger] Resolved: 06-29-2012 07-03-2015 Episodic Comment on above: smash it. will work with ball not better then get xray. has been 2 weeks and better Other endocrine disorders (20 sources) Testicular hypofunction; Translations: [Testicular hypofunction] 04-04-2018 Chronic Comment on above: on testosterone. Other gastrointestinal disorders (20 sources) Heartburn; Translations: [Heartburn] Resolved: 02-23-2022 04-04-2018 Episodic Other inflammatory condition of skin (20 sources) Itching of skin; Translations: [Itch of skin] Resolved: 06-12-2019 04-04-2018 Episodic Other inflammatory condition of skin (20 sources) Itching ; Translations: [Itching] Resolved: 10-19-2017 02-23-2018 Episodic Other lower respiratory disease (20 sources) Cough; Translations: [Cough] 04-04-2018 Episodic Other lower respiratory disease (20 sources) Wheezing; Translations: [Wheezing] Resolved: 10-06-2015 10-06-2015 Episodic Other lower respiratory disease (20 sources) Other diseases of lung, not elsewhere classified; Translations: [Lung nodule (518.89)] Episodic Other lower respiratory disease (8 sources) Dyspnea on exertion; Translations: [Other forms of dyspnea] 02-29-2024 Episodic Other lower respiratory disease (1 source) Dyspnea, unspecified; Translations: [Dyspnea, unspecified] Onset: 02-25-2025 Episodic Other male genital disorders (20 sources) Impotence; Translations: [Erectile dysfunction] 06-20-2018 Chronic Other male genital disorders (5 sources) Impotence of organic origin; Translations: [Erectile dysfunction] 04-04-2018 Chronic Other male genital disorders (20 sources) Male erectile dysfunction, unspecified; Translations: [Erectile dysfunction] 06-12-2019 Chronic Other nutritional; endocrine; and metabolic disorders (20 sources) Body mass index 25-29 - overweight; Translations: [BMI 27.0-27.9,adult] 04-04-2018 Chronic Other nutritional; endocrine; and metabolic disorders (20 sources) Body mass index 25-29 - overweight; Translations: [BMI 27.0-27.9,adult] 07-09-2020 Episodic Other nutritional; endocrine; and metabolic disorders (20 sources) Overweight in adulthood with body mass index of 25 or more but less than 30; Translations: [BMI 27.0-27.9,adult] 12-14-2020 Episodic Other skin disorders (20 sources) Eruption; Translations: [Rash] Resolved: 02-23-2022 04-04-2018 Episodic Comment on above: ? folliculitis Other skin disorders (20 sources) Epidermoid cyst of skin; Translations: [Inflamed sebaceous cyst] 06-20-2018 Episodic Other skin disorders (19 sources) Sebaceous cyst of skin; Translations: [Inflamed sebaceous cyst] 12-14-2020 Episodic Other upper respiratory disease (20 sources) Seasonal allergy; Translations: [Seasonal allergic rhinitis] Resolved: 02-23-2018 02-23-2018 Chronic Comment on above: start otc claritin Other upper respiratory disease (20 sources) Other disease of nasal cavity and sinuses; Translations: [Congestion of nasal sinus] Resolved: 10-06-2015 10-06-2015 Episodic Other upper respiratory disease (20 sources) Congestion of nasal sinus Episodic Other upper respiratory disease (20 sources) Nasal sinus problem; Translations: [Sinus pressure] Resolved: 02-23-2018 02-23-2018 Episodic Other upper respiratory disease (20 sources) Nasal discharge; Translations: [Nasal drainage] Resolved: 02-23-2022 05-11-2020 Episodic Other upper respiratory infections (20 sources) Chronic sinusitis, unspecified; Translations: [Other chronic sinusitis] Resolved: 02-23-2018 02-23-2018 Chronic Comment on above: recurrent -- h/o sin us surgery somemucosal thickeni ngon CT scan 01-06 not bad and willuse flonase and [id number] sinus surgery frontal 1985 sinus surgery f rontal Other upper respiratory infections (20 sources) Acute pharyngitis; Translations: [Sinusitis] Resolved: 10-06-2015 04-28-2015 Episodic Comment on above: sound like bronchiti s. used zpak help in past will start with --iif not better CXR advance to levaquin Otitis media and related conditions (20 sources) Other specified disorders of Eustachian tube, bilateral; Translations: [Dysfunction of bilateral eustachian tubes] Resolved: 11-16-2017 02-23-2018 Episodic Residual codes; unclassified (17 sources) Needs influenza immunization; Translations: [Need for prophylactic vaccination and inoculation against influenza] 06-20-2018 Episodic Residual codes; unclassified (7 sources) Increased body mass index; Translations: [BMI 29.0-29.9,adult] 06-20-2018 Episodic Residual codes; unclassified (20 sources) Current non-smoker ; Translations: [Current nonsmoker (Renamed from Current non-smoker)] 07-09-2020 Episodic Residual codes; unclassified (12 sources) Flushing; Translations: [Flushing] 02-23-2022 Episodic Comment on above: pt helen ck bp next ep isode to see if having spikes -- can do hormonal and 24hr urine collections Residual codes; unclassified (17 sources) Non-smoker; Translations: [Current nonsmoker (Renamed from Current non-smoker)] 08-26-2022 Episodic Spondylosis; intervertebral disc disorders; other back problems (20 sources) Low back pain; Translations: [Lower back pain] Resolved: 02-23-2018 02-23-2018 Episodic Thyroid disorders (20 sources) Iatrogenic hypothyroidism; Translations: [Hypothyroidism] Onset: 12-24-2010 12-24-2010 Chronic Unclassified (20 sources) Psychosexual dysfunction with other specified psychosexual dysfunctions; Translations: [DYSFUNCTION, PSYCHOSEXUAL NEC] Resolved: 06-29-2012 06-29-2012 Chronic Unclassified (8 sources) Family history of ischemic heart disease; Translations: [Increased body mass index] Onset: 12-24-2010 Resolved: 12-26-2013 12-24-2010 Episodic Unclassified (20 sources) Other specified abnormal findings of blood chemistry; Translations: [Lung mass] Resolved: 06-29-2012 04-28-2015 Episodic Comment on above: better reveiwed with gurvinder t note from sibiliafollowed out 2 years so no further work up scope due 2018 Unclassified (20 sources) Unclassified (20 sources) Adenopathy Unclassified (20 sources) Rash (782.1) Unclassified (20 sources) Sinusitis, bacterial Unclassified (20 sources) Sinus pressure Unclassified (20 sources) BMI 28.0-28.9,adult Unclassified (20 sources) Current non-smoker ; Translations: [Current nonsmoker (Renamed from Current non-smoker)] 04-04-2018 Unclassified (20 sources) Colon polyp (211.3) Unclassified (20 sources) Lung nodule (518.89) Unclassified (20 sources) Well Male Exam (V70.0) Unclassified (20 sources) BMI 27.0-27.9,adult Unclassified (20 sources) Abnormal TSH (794.5) Unclassified (20 sources) DYSFUNCTION, PSYCHOSEXUAL NEC (302.79) Unclassified (3 sources) Long-term drug therapy; Translations: [Other prison (current) drug therapy] Onset: 12-24-2010 12-24-2010 Unclassified (17 sources) Sinusitis, acute Unclassified (20 sources) Nasal drainage Unclassified (2 sources) Finding of body mass index; Translations: [Body mass index (BMI) 27.0-27.9, adult] Onset: 02-17-2014 02-17-2014 Unclassified (20 sources) BRONCHITIS, NOT SPECIFIED ACUTE OR CHRONIC (490.) Viral infection (20 sources) Viral disease; Translations: [Viral infection, unspecified] Resolved: 06-29-2012 06-08-2015 Episodic Past or Other Problems Problem Classification Problem Date Documented Da te Episodic/Chronic Coronary atherosclerosis and other heart disease (20 sources) Stented coronary artery; Translations: [Presence of coronary angioplasty implant and graft] Onset: 1 12-13-2017 Episodic Comment on above: PTCA/ILENE of the prox imal to mid LAD 11/30/10 External Injury - Fall (20 sources) Fall; Translations: [Fall] Resolved: 6 10-06-2015 Comment on above: [place] out in [place] Gastrointestinal hemorrhage (20 sources) Gastrointestinal hemorrhage Other aftercare (2 sources) Other long term care social worker (current) drug therapy; Translations: [Other prison (current) drug therapy] Onset: 1 12-24-2010 Episodic Other circulatory disease (5 sources) History of placement of stent for coronary artery disease; Translations: [Presence of other cardiac implants and grafts] Onset: 6 07-04-2016 Episodic Other liver diseases (1 source) Abnormal levels of other serum enzymes; Translations: [Abnormal levels of other serum enzymes] Onset: 5 Episodic Other lower respiratory disease (7 sources) Lung mass; Translations: [Lung nodule] Resolved: 2 06-29-2012 Episodic Comment on above: reveiwed with patien t note from sibiliafollowed out 2 years so no further work up Other lower respiratory disease (20 sources) Solitary pulmonary nodule; Translations: [Nodule of lung] Resolved: 2 06-29-2012 Episodic Comment on above: reveiwed with patien t note from sibiliafollowed out 2 years so no further work up Other lower respiratory disease (1 source) Shortness of breath; Translations: [Shortness of breath] Onset: 5 Episodic Other lower respiratory disease (1 source) Other specified respiratory disorders; Translations: [Other specified respiratory disorders] Onset: 5 Episodic Other nutritional; endocrine; and metabolic disorders (12 sources) Body mass index (BMI) 26.0-26.9, adult; Translations: [Body mass index (BMI) 27.0-27.9, adult] Onset: 4 Resolved: 6 03-06-2015 Episodic Other nutritional; endocrine; and metabolic disorders (1 source) Body mass index (BMI) 27.0-27.9, adult; Translations: [Body mass index (BMI) 27.0-27.9, adult] Onset: 4 02-17-2014 Episodic Otitis media and related conditions (13 sources) Dysfunction of bilateral eustachian tubes; Translations: [Eustachian tube dysfunction, bilateral] Resolved: 8 02-23-2018 Residual codes; unclassified (4 sources) Vaccination required; Translations: [Encounter for immunization] Resolved: 4 06-09-2015 Episodic Residual codes; unclassified (1 source) Chills (without fever); Translations: [Chills (without fever)] Onset: 5 Episodic Unclassified (20 sources) BMI 29.0-29.9,adult Unclassified (20 sources) Rash Unclassified (20 sources) SHINGLES,NEED FOR PROPHYLACTIC VACCINATION AND INOCULATION AGAINST (V05.8) Unclassified (20 sources) Unspecified Diagnosis Resolved: 4 12-26-2013 Unclassified (20 sources) DERMATITIS, CONTACT, DUE TO PLANTS (692.6) Unclassified (20 sources) Eustachian tube dysfunction, bilateral Unclassified (20 sources) Screening for prostate cancer; Translations: [Screening status] 04-04-2018 Unclassified (20 sources) Abnormal TSH Unclassified (20 sources) Arm/Upper Limb (884.0) Unclassified (20 sources) Muscle spasm Unclassified (20 sources) Dermatitis due to plants, including poison marlene, sumac, and oak Unclassified (20 sources) Swelling of fingers (729.81) Unclassified (20 sources) Itch of skin Unclassified (20 sources) PHARYNGITIS, ACUTE (462.) Unclassified (20 sources) Encounter for screening for malignant neoplasm of colon (Renamed from Special screening for malignant neoplasms, colon); Translations: [Screening status] 04-04-2018 Comment on above: scope due 2019 Unclassified (20 sources) Physical exam WITHOUT abnormal findings (Renamed from Encounter for routine adult health examination without abnormal findings) Unclassified (20 sources) poison marlene Resolved: 2 06-29-2012 Unclassified (20 sources) Colon Polyps, History of (V12.72) Unclassified (20 sources) external hemmorhiod 455.3 (Renamed from External (455.3)) Unclassified (20 sources) Patient encounter status; Translations: [Encounter for routine history and physical exam for male] Onset: 1 Resolved: 4 04-04-2018 Unclassified (20 sources) Screening status; Translations: [Encounter for screening for malignant neoplasm of colon (Renamed from Special screening for malignant neoplasms, colon)] 06-20-2018 Comment on above: scope due 2019 Unclassified (20 sources) Inflamed sebaceous cyst Unclassified (20 sources) Hemorrhoid Unclassified (20 sources) Colon polyp Unclassified (20 sources) Annual Medicare Physical WITH abnormal findings (Renamed from Encounter for general adult medical examination with abnormal findings) Unclassified (15 sources) Exposure to SARS virus Results Test Name Value Interpretation Reference Range Facility Cardiology Visit Reporton Cardiology Visit Report [facility] [address] [place] [address] OFFICE VISIT Date of Service: 02/24/25 MR#: [id number] Acct: [id number] Name: GEETHA GONZALEZ Rep #: [id number] : 1950 Provider: Dr. Michael aguilar MD Age/Sex: 74/M Location[place] [facility] [place] Status: Signed HPI HPI History of Present Illness Details: Patient is a very pleasant 74-year-old white male that comes in today for monitor of his cardiovascular disease. Patient carries a history of coronary disease status post stenting in 2010 to the proximal and mid LAD. The patient reports now that he is having some issues when he is walking requiring him to mouth breathe and describes a weight on his chest. He does report that this is usually predictable but not always. He has been evaluated by pulmonary as this is primarily started with shortness of breath. He has been placed on an inhaler but he is still having some of the symptoms. He has had PFTs done but the results are still pending. The patient's prior angina was a chest pain which he has not experienced. The patient carries a history of hypertension which is well-controlled at 113/69 in the office heart rate is 60 he is on metoprolol succinate 25 mg. He also has a history of hyperlipidemia his lipids as of January 2024 were at goal. Patient denies any PND orthopnea denies any lower extremity edema. 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 Intake Vital Signs 02/29/24 14:55 02/24/25 08:22 Height 5 ft 9 in 5 ft 9 in Weight: 180 lb BMI 26.6 BP 113/69 Blood Pressure Location Lt brachial Position Sitting Respiration 16 Pulse 60 Pulse Source Monitor Intake Visit Reasons: 9 M FU [employer] Shift Supervisor Required: No Accompanied by: Self Is patient in pain?: No Allergies No Known Allergies Allergy (Verified 02/24/25 08:27) Medications ???Medication ???Instructions ???Recorded ???Confirmed ???Type aspirin 81 mg chewable tablet 81 mg PO DAILY@0800 12/24/1502/24 History multivitamin with folic acid 400 1 tab PO DAILY 12/24/15 02/24/25 H istory mcg tablet nitroglycerin 0.4 mg sublingual 0.4 mg sublingual Q5-15M PRN chest 11/03/21 02/24/25 Rx tablet pain #25 tabs metoprolol succinate 25 mg 25 mg PO DAILY #90 tabs 05/30/23 0 02/24/25 Rx tablet,extended release 24 hr levothyroxine 112 mcg tablet 88 mcg PO DAILY 02/29/24 02/24/25 History atorvastatin 40 mg tablet 40 mg PO DAILY #90 tabs 06/12/24 0 02/24/25 Rx budesonide 160 mcg-glycopyr 9 2 inh inhalation BID PRN 02/24/25 02/24/25 History mcg-formot 4.8 mcg/actuation HFA inhaler (Breztri Aerosphere) doxycycline monohydrate 50 mg 50 mg PO QDAY 02/24/25 02/24/25 Hi story tablet Ejection fraction %: 65 Have you fallen in the past year?: No PFSH Medical History GUZMAN (dyspnea on exertion) Essential hypertension TIA (transient ischemic attack) Long-term use of high-risk medication Osteoarthritis History of DVT (deep vein thrombosis) Hypertension Atherosclerotic heart disease of [place] coronary artery without angina pectoris Palpitations Chest pain Hyperlipidemia Hypothyroidism Surgical History Presence of stent in coronary artery ( 11/30/10) Postsurgical percutaneous transluminal coronary angioplasty (PTCA) status History of cardiac catheterization History of sinus surgery H/O bilateral hip replacements History of hernia repair Family History Father Atrial fibrillation Brother Myocardial infarction, Onset Age: 59 Social History Smoking Status: Never smoker alcohol intake: current details: rare substance use type: does not use ROS Const Const: Positive for fatigue; Negative for weakness Eyes Eyes: Negative for change in vision ENT ENT: Negative for dizziness or balance problems Cardio Chest Pain: Yes Character: other (heaviness on chest) Location: mid sternal Palpitations: No Edema: Bilateral (occ) Resp Respiratory: Positive for SOB with activity; Negative for SOB at rest or SOB orthopnea SOB lying down GI GI: Negative nausea or heartburn Musc Musc: Negative for balance problems Neuro Neuro: Negative for dizziness, lightheadedness, near syncope, syncope or weakness Endo Endo: Positive for fatigue Cardiology Exam Const Appearance: cooperative, healthy appearing, comfortable, no acute distress and well developed Head Head: nor (more content not included)... Normal [facility] Absolute lymphocyte countOrd ered By: Tee Ricardo on 02-04-2025 Lymphocytes Auto (Unsp spec) [#/Vol] 1.16 10*3/uL 0.83-4.51 [facility] Absolute neutrophil countOrd ered By: [facility] Neutrophils (Bld) [#/Vol] 5.1 10*3/uL 2.0-7.7 [facility] Anion gap in Serum or Plasma Ordered By: Tee Davion on 02-04-2025 Anion gap [Moles/Vol] 11 mmol/L 12-05 [facility] Automated lymphocyte count a s percentage of total leukocytesOrdered By: Tee Ricardo on 02-04-2025 Lymphocytes/100 WBC Auto (Unsp spec) 14.6 % Low 19- [facility] BUN/creatinine ratioOrdered By: [facility] on 02-04-2025 Urea nitrogen/Creatinine [Mass ratio] 16.7 mg/mg 05-12 [facility] Basophil percentageOrdered B y: [facility] on 02-04-2025 Basophils/100 WBC (Bld) 0.5 % 0- [facility] Bilirubin, totalOrdered By: Annmarie Huerta on 02-04-2025 Bilirubin [Mass/Vol] 0.75 mg/dL 0.00-1.30 [facility] CBC W/Diff, Automatedon 01-21 Absolute Lymph 1.16 X10 3/uL Normal 0.83-4.51 [facility] Comment on above: Order Comment: CC:GILDA P TO THERESE HUERTA Performed By: #### L 506.1001, L501.9520, L500.4050, L100.0100 #### [facility] Laboratory [address] [place], [address] Absolute Neut 5.1 X10 3/uL Normal 2.0-7.7 [facility] Comment on above: Order Comment: CC:CM P TO THERESE HUERTA Performed By: #### L 506.1001, L501.9520, L500.4050, L100.0100 #### [facility] [address] [place], [address] Basophils/100 WBC (Bld) 0.5 % Normal 0-1 [facility] Comment on above: Order Comment: CC:CM P TO THERESE HUERTA Performed By: #### L 506.1001, L501.9520, L500.4050, L100.0100 #### [facility] [address] [place], [address] Eosinophils/100 WBC (Bld) 5.0 % Normal 0-5 [facility] Comment on above: Order Comment: CC:CM P TO THERESE HUERTA Performed By: #### L 506.1001, L501.9520, L500.4050, L100.0100 #### [facility] [address] [place], [address] Erythrocyte distribution width (RBC) [Ratio] 13.0 % Normal 11.6-14.6 [facility] Comment on above: Order Comment: CC:CM P TO THERESE HUERTA Performed By: #### L 506.1001, L501.9520, L500.4050, L100.0100 #### [facility] [address] [place], [address] Hematocrit (Bld) [Volume fraction] 43.6 % Normal 40-54 [facility] Comment on above: Order Comment: CC:CM P TO THERESE HUERTA Performed By: #### L 506.1001, L501.9520, L500.4050, L100.0100 #### [facility] [address] [place], [address] Hemoglobin (Bld) [Mass/Vol] 15.2 g/dL Normal 13.0-16.5 [facility] Comment on above: Order Comment: CC:CM P TO THERESE HUERTA Performed By: #### L 506.1001, L501.9520, L500.4050, L100.0100 #### [facility] [address] [place], [address] IG% 1.000 High 0.0-0.9 [facility] Comment on above: Order Comment: CC:CM P TO THERESE HUERTA Result Comment: IG% - Immature Granulocytes (promyelocytes, myelocytes and metamyelocytes) > 1% indicates that a LEFT SHIFT is Present. Performed By: #### L 506.1001, L501.9520, L500.4050, L100.0100 #### [facility] [address] [place], [address] Lymphocytes/100 WBC (Bld) 14.6 % Low 19-41 [facility] Comment on above: Order Comment: CC:CM P TO THERESE HUERTA Performed By: #### L 506.1001, L501.9520, L500.4050, L100.0100 #### [facility] [address] [place], [address] MCH (RBC) [Entitic mass] 33.6 pg High 27.0-32.0 [facility] Comment on above: Order Comment: CC:CM P TO THERESE HUERTA Performed By: #### L 506.1001, L501.9520, L500.4050, L100.0100 #### [facility] [address] [place], [address] MCHC (RBC) [Mass/Vol] 34.9 g/dL Normal 32-36 [facility] Comment on above: Order Comment: CC:CM P TO THERESE HUERTA Performed By: #### L 506.1001, L501.9520, L500.4050, L100.0100 #### [facility] [address] [place], [address] MCV (RBC) [Entitic vol] 96.2 fL High 80-94 [facility] Comment on above: Order Comment: CC:CM P TO THERESE HUERTA Performed By: #### L 506.1001, L501.9520, L500.4050, L100.0100 #### [facility] [address] [place], [address] Monocytes/100 WBC (Bld) 14.9 % High 0-10 [facility] Comment on above: Order Comment: CC:CM P TO THERESE HUERTA Performed By: #### L 506.1001, L501.9520, L500.4050, L100.0100 #### [facility] [address] [place], [address] Neutrophils/100 WBC (Bld) 64.0 % Normal 47-70 [facility] Comment on above: Order Comment: CC:CM P TO THERESE HUERTA Performed By: #### L 506.1001, L501.9520, L500.4050, L100.0100 #### [facility] [address] [place], [address] Nucleated RBC (Bld) [#/Vol] 0 10*3/uL Normal 0-5 [facility] Comment on above: Order Comment: CC:CM P TO THERESE HUERTA Performed By: #### L 506.1001, L501.9520, L500.4050, L100.0100 #### [facility] [address] [place], [address] Platelet mean volume (Bld) [Entitic vol] 9.4 fL Normal 6.2-12.0 [facility] Comment on above: Order Comment: CC:CM P TO THERESE HUERTA Performed By: #### L 506.1001, L501.9520, L500.4050, L100.0100 #### [facility] [address] [place], [address] Platelets (Bld) [#/Vol] 258 10*3/uL Normal 150-450 [facility] Comment on above: Order Comment: CC:CM P TO THERESE HUERTA Performed By: #### L 506.1001, L501.9520, L500.4050, L100.0100 #### [facility] [address] [place], [address] RBC (Bld) [#/Vol] 4.53 10*6/uL Low 4.6-6.2 [facility] Comment on above: Order Comment: CC:CM P TO THERESE HUERTA Performed By: #### L 506.1001, L501.9520, L500.4050, L100.0100 #### [facility] [address] [place], [address] RDW SD 46.3 fl High 35.1-43.9 [facility] Comment on above: Order Comment: CC:CM P TO THERESE HUERTA Performed By: #### L 506.1001, L501.9520, L500.4050, L100.0100 #### [facility] [address] [place], [address] WBC (Bld) [#/Vol] 7.9 10*3/uL Normal 4.4-11.0 [facility] Comment on above: Order Comment: CC:CM P TO THERESE HUERTA Performed By: #### L 506.1001, L501.9520, L500.4050, L100.0100 #### [facility] [address] [place], [address] Carbon dioxide, total [Moles /volume] in Central venous bloodOrdered By: Tee Ricardo on 02-04-2025 CO2 [Moles/Vol] 26.9 mmol/L 21.0-32.0 [facility] Chloride assayOrdered By: Justus Ricardo on 02-04-2025 Chloride [Moles/Vol] 102 mmol/L 98-108 [facility] Comprehensive Metabolic Prof ilon 02-04-2025 Albumin [Mass/Vol] 4.1 g/dL Normal 3.4-4.8 [facility] Comment on above: Order Comment: CC:CM P TO THERESE HUERTA Performed By: #### M 100.678 #### [facility] [address] [place], [address] Albumin/Globulin [Mass ratio] 1.2 {ratio} Normal 0.9-2.4 [facility] Comment on above: Order Comment: CC:CM P TO THERESE HUERTA Performed By: #### M 100.678 #### [facility] [address] [place], [address] ALK PHOS 98 U/L Normal 40-129 [facility] Comment on above: Order Comment: CC:CM P TO THERESE HUERTA Performed By: #### M 100.678 #### [facility] [address] [place], [address] ALT [Catalytic activity/Vol] 39 U/L Normal <=46 [facility] Comment on above: Order Comment: CC:CM P TO THERESE HUERTA Performed By: #### M 100.678 #### [facility] [address] [place], [address] AST [Catalytic activity/Vol] 33 U/L Normal <=37 [facility] Comment on above: Order Comment: CC:CM P TO THERESE HUERTA Performed By: #### M 100.678 #### [facility] [address] [place], [address] Bilirubin [Mass/Vol] 0.69 mg/dL Normal 0.00-1.30 [facility] Comment on above: Order Comment: CC:CM P TO THERESE HUERTA Performed By: #### M 100.678 #### [facility] [address] [place], [address] BUN/CRE 16.7 RATIO Normal 10-20 [facility] Comment on above: Order Comment: CC:CM P TO THERESE HUERTA Performed By: #### M 100.678 #### [facility] [address] [place], [address] Calcium [Mass/Vol] 9.8 mg/dL Normal 7.6-11.0 [facility] Comment on above: Order Comment: CC:CM P TO THERESE HUERTA Performed By: #### M 100.678 #### [facility] [address] [place], [address] Chloride [Moles/Vol] 102 mmol/L Normal 98-108 [facility] Comment on above: Order Comment: CC:CM P TO THERESE HUERTA Performed By: #### M 100.678 #### [facility] [address] [place], [address] CO2 [Moles/Vol] 26.9 mmol/L Normal 21.0-32.0 [facility] Comment on above: Order Comment: CC:CM P TO THERESE HUERTA Performed By: #### M 100.678 #### [facility] [address] [place], [address] Creatinine [Mass/Vol] 1.02 mg/dL Normal 0.70-1.20 [facility] Comment on above: Order Comment: CC:CM P TO THERESE HUERTA Performed By: #### M 100.678 #### [facility] [address] [place], [address] GAP 11 Normal 5-15 [facility] Comment on above: Order Comment: CC:CM P TO THERESE HUERTA Performed By: #### M 100.678 #### [facility] [address] [place], [address] GFR/1.73 sq M.predicted among non-blacks MDRD (S/P/Bld) [Vol rate/Area] 78 mL/min/{1.73_m2} Normal >60 [facility] Comment on above: Order Comment: CC:CM P TO THERESE HUERTA Result Comment: mL/m in/1.73m2 CKD-EPI Creatinine Equation (2020) Performed By: #### M 100.678 #### [facility] [address] [place], [address] Globulin (S) [Mass/Vol] 3.4 g/dL Normal 2.2-4.2 [facility] Comment on above: Order Comment: CC:CM P TO THERESE HUERTA Performed By: #### M 100.678 #### [facility] [address] [place], [address] Glucose [Mass/Vol] 97 mg/dL Normal 70-99 [facility] Comment on above: Order Comment: CC:CM P TO THERESE HUERTA Performed By: #### M 100.678 #### [facility] [address] [place], [address] Potassium [Moles/Vol] 4.4 mmol/L Normal 3.3-5.1 [facility] Comment on above: Order Comment: CC:CM P TO THERESE HUERTA Performed By: #### M 100.678 #### [facility] [address] [place], [address] Sodium [Moles/Vol] 139 mmol/L Normal 133-145 [facility] Comment on above: Order Comment: CC:CM P TO THERESE HUERTA Performed By: #### M 100.678 #### [facility] [address] [place], [address] T PROT 7.4 g/dL Normal 5.9-8.4 [facility] Comment on above: Order Comment: CC:CM P TO THERESE HUERTA Performed By: #### M 100.678 #### [facility] Laboratory [address] [place], [place], [address] Urea nitrogen [Mass/Vol] 17 mg/dL Normal 4-19 [facility] Comment on above: Order Comment: CC:CM P TO THERESE HUERTA Performed By: #### M 100.678 #### [facility] [address] [place], [place], [id number] Eosinophil percentageOrdered By: Tee Ricardo on 02-04-2025 Eosinophils/100 WBC (Bld) 5.0 % 0-5 [facility] Erythrocyte distribution wid th ratioOrdered By: Tee Ricardo on 02-04-2025 Erythrocyte distribution width (RBC) [Ratio] 13.0 % 11.6-14.6 [facility] Erythrocyte distribution wid th standard deviationOrdered By: Tee Ricardo 02-04-2025 Erythrocyte distribution width (RBC) [Ratio] 46.3 fl High 35.1-43.9 [facility] Glomerular filtration rate ( GFR) estimation/1.73 sq m using serum, plasma, or whole bOrdered By: Tee Ricardo on 02-04-2025 GFR/1.73 sq M.predicted among non-blacks MDRD (S/P/Bld) [Vol rate/Area] 78 mL/min/{1.73_m2} >60 [facility] Comment on above: mL/min/1.73m2 CKD-EP I Creatinine Equation (2020) Hematocrit Auto (Bld) [Volum e fraction]Ordered By: Tee Ricardo 02-04-2025 Hematocrit (Bld) [Volume fraction] 43.6 % 40-54 [facility] Hemoglobin measurementOrdere d By: Tee Ricardo 02-04-2025 Hemoglobin (Bld) [Mass/Vol] 15.2 g/dL 13.0-16.5 [facility] Immature granulocytes/100 WB C Auto (Bld)Ordered By: Tee Ricardo on 07-15-2025 Immature granulocytes/100 WBC (Bld) 1.000 % High 0.0-0.9 [facility] Comment on above: IG% - Immature Granu locytes (promyelocytes, myelocytes and metamyelocytes) > 1% indicates that a LEFT SHIFT is Present. Laboratory - Chemistry and C hemistry - challengeOrdered By: Tee Ricardo on 02-04-2025 AST [Catalytic activity/Vol] 33 U/L <38 [facility] MCV (mean corpuscular volume ) determinationOrdered By: Tee Ricardo 02-04-2025 MCV (RBC) [Entitic vol] 96.2 fL High 80-94 [facility] Mean corpuscular hemoglobin (MCH) determinationOrdered By: Tee Ricardo 02-04-2025 MCH (RBC) [Entitic mass] 33.6 pg High 27.0-32.0 [facility] Mean corpuscular hemoglobin concentration (MCHC) determinationOrdered By: Tee Ricardo 02-04-2025 MCHC (RBC) [Mass/Vol] 34.9 g/dL 32-36 [facility] Mean platelet volume determi nationOrdered By: Tee Ricardo 02-04-2025 Platelet mean volume (Bld) [Entitic vol] 9.4 fL 6.2-12.0 [facility] Monocyte percentageOrdered B y: Tee Millerok on 02-04-2025 Monocytes/100 WBC (Bld) 14.9 % High 0-10 [facility] Neutrophil percentageOrdered By: Tee Ricardo 02-04-2025 Neutrophils/100 WBC (Bld) 64.0 % 47-70 [facility] Nucleated red blood cell per centageOrdered By: Tee Ricardo 02-04-2025 Nucleated RBC/100 WBC (Bld) [Ratio] 0 % 0-5 [facility] Platelet countOrdered By: Justus Ricardo on 02-04-2025 Platelets (Bld) [#/Vol] 258 10*3/uL 150-450 [facility] Potassium measurement (mass/ volume)Ordered By: Tee Ricardo on 02-04-2025 Potassium (Unsp spec) [Mass/Vol] 4.4 mmol/L 3.3-5.1 [facility] RBC Auto (Bld) [#/Vol]Ordere d By: Tee Ricardo on 02-04-2025 RBC (Bld) [#/Vol] 4.53 10*6/uL Low 4.6-6.2 [facility] Serum creatinine measurement (mass/volume)Ordered By: Tee Ricardo on 02-04-2025 Creatinine [Mass/Vol] 1.02 mg/dL 0.70-1.20 [facility] Serum globulin measurementOr dered By: Tee Ricardo 02-04-2025 Globulin (S) [Mass/Vol] 3.4 g/dL 2.2-4.2 [facility] Serum glucose measurement (m ass/volume)Ordered By: Tee Ricardo 02-04-2025 Glucose [Mass/Vol] 97 mg/dL 70-99 [facility] Serum or plasma alanine maldonado otransferase (ALT) measurementOrdered By: Tee Ricardo 02-04-2025 ALT [Catalytic activity/Vol] 39 U/L <47 [facility] Serum or plasma albumin gopal urement (mass/volume)Ordered By: Tee Ricardo 02-04-2025 Albumin [Mass/Vol] 4.1 g/dL 3.4-4.8 [facility] Serum or plasma albumin/glob ulin mass ratioOrdered By: Tee Ricardo 02-04-2025 Albumin/Globulin [Mass ratio] 1.2 {ratio} 0.9-2.4 [facility] Serum or plasma alkaline darrell sphatase measurementOrdered By: Tee Ricardo 02-04-2025 ALP [Catalytic activity/Vol] 98 U/L 40-129 [facility] Serum or plasma calcium gopal urement (mass/volume)Ordered By: Tee Ricardo 02-04-2025 Calcium [Mass/Vol] 9.8 mg/dL 7.6-11.0 [facility] Serum or plasma urea nitroge n measurement (mass/volume)Ordered By: Tee Ricardo 02-04-2025 Urea nitrogen [Mass/Vol] 17 mg/dL 4-19 [facility] Sodium levelOrdered By: Tee Ricardo 02-04-2025 Sodium [Moles/Vol] 139 mmol/L 133-145 [facility] TSH DL <= 0.005 mIU/L QnOrde red By: Tee Ricardo on 02-04-2025 TSH Qn 1.620 uIU/mL 0.300-4.200 [facility] Thyroid Stim Hormone (TSH)on 02-04-2025 TSH 1.620 uIU/mL Normal 0.300-4.200 [facility] Comment on above: Order Comment: CC:GILDA P TO THERESE HUERTA Performed By: #### M 100.678 #### [facility] Laboratory [address] [place], [address] Total Bilirubinon 02-04-2025 Bilirubin [Mass/Vol] 0.75 mg/dL Normal 0.00-1.30 [facility] Comment on above: Order Comment: DR. Sherman ROJAS ORDERED CMP AND LIPID CC TO JOCELYN Performed By: #### M 100.678 #### [facility] [address] [place], [address] Total proteinOrdered By: Tee Ricardo on 02-04-2025 Protein [Mass/Vol] 7.4 g/dL 5.9-8.4 [facility] Vitamin D,25 Hydroxyon 02-04 Vitamin D 25-OH 38.1 ng/mL Normal 30-100 [facility] Comment on above: Order Comment: CC:GILDA P TO THERESE HUERTA Result Comment: Janna min D Status Deficiency: <20 ng/mL (50nmol/L) Insufficiency: 20-30 ng/mL (50-75 nmol/L) Sufficiency: 30-100 ng/mL (75-250 nmol/L) Toxicity: >100 ng/mL (>250 nmol/L) Performed By: #### M 100.678 #### [facility] [address] [place], [address] White blood cell (WBC) count Ordered By: Tee Ricardo on 02-04-2025 WBC (Bld) [#/Vol] 7.9 10*3/uL 4.4-11.0 [facility] Myoglobin, Serumon Myoglobin, Ser 88 ng/mL High 28-72 [facility] Comment on above: Result Comment: Perf ormed at: - [facility] [id number] Professor Of Environmental Science: Arcadio Carlson PhD, Phone: [phone] Performed By: #### L 3600.5100, L503.1521, L500.4050, L501.3620, L501.4024 ####[facility] [address] [place], [place], [id number] Absolute lymphocyte countOrd ered By: Tee Ricardo on 01-17-2025 Lymphocytes Auto (Unsp spec) [#/Vol] 1.60 10*3/uL 0.83-4.51 [facility] Absolute neutrophil countOrd ered By: Tee Ricardo on 01-17-2025 Neutrophils (Bld) [#/Vol] 11.2 10*3/uL High 2.0-7.7 [facility] Automated lymphocyte count a s percentage of total leukocytesOrdered By: Tee Ricardo on 01-17-2025 Lymphocytes/100 WBC Auto (Unsp spec) 11.6 % Low 19-41 [facility] Basophil percentageOrdered B y: Tee Ricardo on 01-17-2025 Basophils/100 WBC (Bld) 0.1 % 0-1 [facility] CBC W/Diff, Automatedon 12-23 Absolute Lymph 1.60 X10 3/uL Normal 0.83-4.51 [facility] Comment on above: Performed By: #### L 100.0100 ####[facility] [address] [place], [place], [id number] Absolute Neut 11.2 X10 3/uL High 2.0-7.7 [facility] Comment on above: Performed By: #### L 100.0100 ####[facility] [address] [place], [place], [id number] Basophils/100 WBC (Bld) 0.1 % Normal 0-1 [facility] Comment on above: Performed By: #### L 100.0100 ####[facility] [address] [place], [address] Eosinophils/100 WBC (Bld) 0.1 % Normal 0-5 [facility] Comment on above: Performed By: #### L 100.0100 ####[facility] [address] [place], [address] Erythrocyte distribution width (RBC) [Ratio] 13.3 % Normal 11.6-14.6 [facility] Comment on above: Performed By: #### L 100.0100 ####[facility] [address] [place], [address] Hematocrit (Bld) [Volume fraction] 39.9 % Low 40-54 [facility] Comment on above: Performed By: #### L 100.0100 ####[facility] [address] [place], [address] Hemoglobin (Bld) [Mass/Vol] 13.7 g/dL Normal 13.0-16.5 [facility] Comment on above: Performed By: #### L 100.0100 ####[facility] [address] [place], [address] IG% 0.700 Normal 0.0-0.9 [facility] Comment on above: Result Comment: IG% - Immature Granulocytes (promyelocytes, myelocytes and metamyelocytes) > 1% indicates that a LEFT SHIFT is Present. Performed By: #### L 100.0100 ####[facility] [address] [place], [address] Lymphocytes/100 WBC (Bld) 11.6 % Low 19-41 [facility] Comment on above: Performed By: #### L 100.0100 ####[facility] [address] [place], [address] MCH (RBC) [Entitic mass] 33.0 pg High 27.0-32.0 [facility] Comment on above: Performed By: #### L 100.0100 ####[facility] [address] [place], [address] MCHC (RBC) [Mass/Vol] 34.3 g/dL Normal 32-36 [facility] Comment on above: Performed By: #### L 100.0100 ####[facility] [address] [place], [address] MCV (RBC) [Entitic vol] 96.1 fL High 80-94 [facility] Comment on above: Performed By: #### L 100.0100 ####[facility] [address] [place], [address] Monocytes/100 WBC (Bld) 6.8 % Normal 0-10 [facility] Comment on above: Performed By: #### L 100.0100 ####[facility] [address] [place], [address] Neutrophils/100 WBC (Bld) 80.7 % High 47-70 [facility] Comment on above: Performed By: #### L 100.0100 ####[facility] [address] [place], [address] Nucleated RBC (Bld) [#/Vol] 0 10*3/uL Normal 0-5 [facility] Comment on above: Performed By: #### L 100.0100 ####[facility] [address] [place], [address] Platelet mean volume (Bld) [Entitic vol] 10.2 fL Normal 6.2-12.0 [facility] Comment on above: Performed By: #### L 100.0100 ####[facility] [address] [place], [address] Platelets (Bld) [#/Vol] 218 10*3/uL Normal 150-450 [facility] Comment on above: Performed By: #### L 100.0100 ####[facility] [address] [place], [place], [phone](329) RBC (Bld) [#/Vol] 4.15 10*6/uL Low 4.6-6.2 [facility] Comment on above: Performed By: #### L 100.0100 ####[facility] [address] [place], [address] RDW SD 46.7 fl High 35.1-43.9 [facility] Comment on above: Performed By: #### L 100.0100 ####[facility] [address] [place], [place], [phone](516) WBC (Bld) [#/Vol] 13.8 10*3/uL High 4.4-11.0 [facility] Comment on above: Performed By: #### L 100.0100 ####[facility] [address] [place], [place], [phone](646) Eosinophil percentageOrdered By: [facility] 01-17-2025 Eosinophils/100 WBC (Bld) 0.1 % 0-5 [facility] Erythrocyte distribution wid th ratioOrdered By: [facility] 01-17-2025 Erythrocyte distribution width (RBC) [Ratio] 13.3 % 11.6-14.6 [facility] Erythrocyte distribution wid th standard deviationOrdered By: [facility] 01-17-2025 Erythrocyte distribution width (RBC) [Ratio] 46.7 fl High 35.1-43.9 [facility] Hematocrit Auto (Bld) [Volum e fraction]Ordered By: [facility] 01-17-2025 Hematocrit (Bld) [Volume fraction] 39.9 % Low 40-54 [facility] Hemoglobin measurementOrdere d By: Tee Ricardo 01-17-2025 Hemoglobin (Bld) [Mass/Vol] 13.7 g/dL 13.0-16.5 [facility] Immature granulocytes/100 WB C Auto (Bld)Ordered By: Tee Ricardo 01-17-2025 Immature granulocytes/100 WBC (Bld) 0.700 % 0.0-0.9 [facility] Comment on above: IG% - Immature Granu locytes (promyelocytes, myelocytes and metamyelocytes) > 1% indicates that a LEFT SHIFT is Present. MCV (mean corpuscular volume ) determinationOrdered By: Tee Ricardo on 01-17-2025 MCV (RBC) [Entitic vol] 96.1 fL High 80-94 [facility] Mean corpuscular hemoglobin (MCH) determinationOrdered By: Tee Ricardo on 01-17-2025 MCH (RBC) [Entitic mass] 33.0 pg High 27.0-32.0 [facility] Mean corpuscular hemoglobin concentration (MCHC) determinationOrdered By: Tee Ricardo on 01-17-2025 MCHC (RBC) [Mass/Vol] 34.3 g/dL 32-36 [facility] Mean platelet volume determi nationOrdered By: Tee Ricardo on 01-17-2025 Platelet mean volume (Bld) [Entitic vol] 10.2 fL 6.2-12.0 [facility] Monocyte percentageOrdered B y: Tee Ricardo on 01-17-2025 Monocytes/100 WBC (Bld) 6.8 % 0-10 [facility] Neutrophil percentageOrdered By: Tee Ricardo on 01-17-2025 Neutrophils/100 WBC (Bld) 80.7 % High 47-70 [facility] Nucleated red blood cell per centageOrdered By: Tee Ricardo on 01-17-2025 Nucleated RBC/100 WBC (Bld) [Ratio] 0 % 0-5 [facility] Platelet countOrdered By: Justus Ricardo on 01-17-2025 Platelets (Bld) [#/Vol] 218 10*3/uL 150-450 [facility] RBC Auto (Bld) [#/Vol]Ordere d By: Tee Ricrado on 01-17-2025 RBC (Bld) [#/Vol] 4.15 10*6/uL Low 4.6-6.2 [facility] White blood cell (WBC) count Ordered By: Tee Ricardo on 01-17-2025 WBC (Bld) [#/Vol] 13.8 10*3/uL High 4.4-11.0 [facility] Anion gap in Serum or Plasma Ordered By: Tee Ricardo on 01-16-2025 Anion gap [Moles/Vol] 12 mmol/L 5-15 [facility] BUN/creatinine ratioOrdered By: Tee Ricardo on 01-16-2025 Urea nitrogen/Creatinine [Mass ratio] 18.0 mg/mg 10-20 [facility] Bilirubin, totalOrdered By: Tee Ricardo on 01-16-2025 Bilirubin [Mass/Vol] 1.05 mg/dL 0.00-1.30 [facility] CPK Total, Creatine Kinaseon 01-16-2025 CPK TOTAL 150 U/L Normal 24-195 [facility] Comment on above: Performed By: #### L 3600.5100, L503.7505, L500.4050, L501.3620, L501.4021 ####[facility] [address] [place], [address] Carbon dioxide, total [Moles /volume] in Central venous bloodOrdered By: Tee Ricardo on 01-16-2025 CO2 [Moles/Vol] 24.2 mmol/L 21.0-32.0 [facility] Chloride assayOrdered By: Justus Ricardo on 01-16-2025 Chloride [Moles/Vol] 104 mmol/L 98-108 [facility] Comprehensive Metabolic Prof ilon 01-16-2025 Albumin [Mass/Vol] 4.2 g/dL Normal 3.4-4.8 [facility] Comment on above: Performed By: #### M 100.678 #### [facility] [address] [place], [address] Albumin/Globulin [Mass ratio] 1.4 {ratio} Normal 0.9-2.4 [facility] Comment on above: Performed By: #### M 100.678 #### [facility] [address] [place], [address] ALK PHOS 82 U/L Normal 40-129 [facility] Comment on above: Performed By: #### M 100.678 #### [facility] [address] [place], [address] ALT [Catalytic activity/Vol] 50 U/L High <=46 [facility] Comment on above: Performed By: #### M 100.678 #### [facility] [address] [place], [address] AST [Catalytic activity/Vol] 44 U/L High <=37 [facility] Comment on above: Performed By: #### M 100.678 #### [facility] [address] [place], [address] Bilirubin [Mass/Vol] 1.05 mg/dL Normal 0.00-1.30 [facility] Comment on above: Performed By: #### M 100.678 #### [facility] [address] [place], [address] BUN/CRE 18.0 RATIO Normal 10-20 [facility] Comment on above: Performed By: #### M 100.678 #### [facility] [address] [place], [address] Calcium [Mass/Vol] 9.5 mg/dL Normal 7.6-11.0 [facility] Comment on above: Performed By: #### M 100.678 #### [facility] [address] [place], [address] Chloride [Moles/Vol] 104 mmol/L Normal 98-108 [facility] Comment on above: Performed By: #### M 100.678 #### [facility] [address] [place], [address] CO2 [Moles/Vol] 24.2 mmol/L Normal 21.0-32.0 [facility] Comment on above: Performed By: #### M 100.678 #### [facility] [address] [place], [address] Creatinine [Mass/Vol] 1.02 mg/dL Normal 0.70-1.20 [facility] Comment on above: Performed By: #### M 100.678 #### [facility] [address] [place], [address] GAP 12 Normal 5-15 [facility] Comment on above: Performed By: #### M 100.678 #### [facility] [address] [place], [address] GFR/1.73 sq M.predicted among non-blacks MDRD (S/P/Bld) [Vol rate/Area] 78 mL/min/{1.73_m2} Normal >60 [facility] Comment on above: Result Comment: mL/m in/1.73m2 CKD-EPI Creatinine Equation (2020) Performed By: #### M 100.678 #### [facility] [address] [place], [address] Globulin (S) [Mass/Vol] 2.9 g/dL Normal 2.2-4.2 [facility] Comment on above: Performed By: #### M 100.678 #### [facility] [address] [place], [address] Glucose [Mass/Vol] 148 mg/dL High 70-99 [facility] Comment on above: Performed By: #### M 100.678 #### [facility] [address] [place], [address] Potassium [Moles/Vol] 3.8 mmol/L Normal 3.3-5.1 [facility] Comment on above: Performed By: #### M 100.678 #### [facility] [address] [place], [address] Sodium [Moles/Vol] 140 mmol/L Normal 133-145 [facility] Comment on above: Performed By: #### M 100.678 #### [facility] [address] [place], [address] T PROT 7.1 g/dL Normal 5.9-8.4 [facility] Comment on above: Performed By: #### M 100.678 #### [facility] [address] [place], [address] Urea nitrogen [Mass/Vol] 18 mg/dL Normal 4-19 [facility] Comment on above: Performed By: #### M 100.678 #### [facility] [address] [place], [place], [id number] Glomerular filtration rate ( GFR) estimation/1.73 sq m using serum, plasma, or whole bOrdered By: Tee Ricardo on 01-16-2025 GFR/1.73 sq M.predicted among non-blacks MDRD (S/P/Bld) [Vol rate/Area] 78 mL/min/{1.73_m2} >60 [facility] Comment on above: mL/min/1.73m2 CKD-EP I Creatinine Equation (2020) L501.4021on 01-16-2025 Trop T High Sen 10 ng/L Normal <=22 [facility] Comment on above: Performed By: #### L 3600.5100, L503.7505, L500.4050, L501.3620, L501.4021 ####[facility] [address] [place], [address] L503.7505on 01-16-2025 proBNP < 36 Normal <=900 [facility] Comment on above: Result Comment: Hear t Failure Unlikely: < 300 pg/mL Heart Failure Likely < 50 Years: > 450 pg/mL 50-75 Years: > 900 pg/mL >75 Years: > 1800 pg/mL Performed By: #### L 3600.5100, L503.7505, L500.4050, L501.3620, L501.4021 ####[facility] [address] [place], [address] Laboratory - Chemistry and C hemistry - challengeOrdered By: Tee Ricardo on 01-16-2025 AST [Catalytic activity/Vol] 44 U/L High <38 [facility] Natriuretic peptide.B prohor brittney N-Terminal [Mass/volume] in Serum or PlasmaOrdered By: Tee Ricardo on 01-16-2025 Natriuretic peptide.B prohormone N-Terminal [Mass/Vol] < 36 pg/mL <900 [facility] Comment on above: Heart Failure Unlike ly: < 300 pg/mLHeart Failure Likely< 50 Years: > 450 pg/mL50-75 Years: > 900 pg/mL>75 Years: > 1800 pg/mL Potassium measurement (mass/ volume)Ordered By: Tee Ricardo on 01-16-2025 Potassium (Unsp spec) [Mass/Vol] 3.8 mmol/L 3.3-5.1 [facility] Serum creatinine measurement (mass/volume)Ordered By: Tee Ricardo 01-16-2025 Creatinine [Mass/Vol] 1.02 mg/dL 0.70-1.20 [facility] Serum globulin measurementOr dered By: Tee Ricardo 01-16-2025 Globulin (S) [Mass/Vol] 2.9 g/dL 2.2-4.2 [facility] Serum glucose measurement (m ass/volume)Ordered By: Tee Ricardo 01-16-2025 Glucose [Mass/Vol] 148 mg/dL High 70-99 [facility] Serum myoglobin measurementO rdered By: Tee Ricardo 01-16-2025 Myoglobin [Mass/Vol] 88 ng/mL High 28-72 [facility] Comment on above: Performed at: [address] [id number] Director: Arcadio Carlson PhD, Phone: [phone] Serum or plasma alanine maldonado otransferase (ALT) measurementOrdered By: Tee Ricardo on 01-16-2025 ALT [Catalytic activity/Vol] 50 U/L High <47 [facility] Serum or plasma albumin gopal urement (mass/volume)Ordered By: Tee Ricardo 01-16-2025 Albumin [Mass/Vol] 4.2 g/dL 3.4-4.8 [facility] Serum or plasma albumin/glob ulin mass ratioOrdered By: Tee Ricardo on 01-16-2025 Albumin/Globulin [Mass ratio] 1.4 {ratio} 0.9-2.4 [facility] Serum or plasma alkaline darrell sphatase measurementOrdered By: Tee Ricardo 01-16-2025 ALP [Catalytic activity/Vol] 82 U/L 40-129 [facility] Serum or plasma calcium gopal urement (mass/volume)Ordered By: Tee Ricardo 01-16-2025 Calcium [Mass/Vol] 9.5 mg/dL 7.6-11.0 [facility] Serum or plasma creatine kin ase activityOrdered By: Tee Ricardo 01-16-2025 CK [Catalytic activity/Vol] 150 U/L 24-195 [facility] Serum or plasma urea nitroge n measurement (mass/volume)Ordered By: Tee Ricardo 01-16-2025 Urea nitrogen [Mass/Vol] 18 mg/dL 4-19 [facility] Sodium levelOrdered By: Tee Ricardo 01-16-2025 Sodium [Moles/Vol] 140 mmol/L 133-145 [facility] Total proteinOrdered By: Tee Ricardo 01-16-2025 Protein [Mass/Vol] 7.1 g/dL 5.9-8.4 [facility] Troponin T.cardiac [Mass/vol ume] in Serum or Plasma by High sensitivity methodOrdered By: Tee Ricardo 01-16-2025 Troponin T.cardiac High sensitivity method [Mass/Vol] 10 ng/L <22 [facility] CTA Chest W/WO Contraston CTA Chest W/WO Contrast [facility] Services [address] [id number] CTA Chest W/WO Contrast MR#: [id number] Acct: [id number] Name: GEETHA GONZALEZ Rep #: [id number] : 1950 M 74 From: [facility] MD PCP: Dr. Tee Ricardo MD Status: REG CLI Study: CTA Chest W/WO Contrast Date of Exam: 12/30/24 Exam# [id number] Ordering Dr: Tee Ricardo MD PROCEDURE: CTA CHEST W/WO CONTRAST 12/30/2024 REASON FOR EXAM: SOB TECHNIQUE: CTA axial imaging of the chest with intravenous contrast. Multiplanar and multisequence images were obtained. PATIENT PREPARATION: Per protocol CONTRAST: Isovue 370 VOLUME: 100 mL One or more dose reduction techniques were used (e.g., Automated exposure control, adjustment of the mA and/or kV according to patient size, use of iterative reconstruction technique). RADIATION DOSE SUMMARY: CTDlvol: 12.4 mGy DLP: 402.73 mGycm . COMPARISON: Prior chest radiograph dated December 09, 2024. FINDINGS: Hardware: None Lymph nodes: No suspicious lymph nodes are seen. Heart: Coronary artery calcifications are noted. Thoracic Aorta: No thoracic aortic aneurysm or dissection. Pulmonary Vessels: No evidence of pulmonary embolism. Lungs and Airways: Mild increased markings at the lung bases suggestive of linear atelectasis and/or scarring. Pleura: No pleural effusion. Upper Abdomen: Unremarkable. Bones: Degenerative changes of the thoracic spine. CT/CTA Chest W/WO Contrast IMPRESSION: NORMAL CHEST CTA. NO EVIDENCE OF ACUTE PULMONARY EMBOLISM. Findings suggestive of mild linear atelectasis and/or scarring at the lung bases. Reading Location: [place] [address] CC: Dr. Tee Ricardo MD Community Living Specialist: Signed Normal [facility] Absolute lymphocyte countOrd ered By: Tee Ricardo on 12-09-2024 Lymphocytes Auto (Unsp spec) [#/Vol] 2.47 10*3/uL 0.83-4.51 [facility] Absolute neutrophil countOrd ered By: Tee Ricardo on 12-09-2024 Neutrophils (Bld) [#/Vol] 4.9 10*3/uL 2.0-7.7 [facility] Anion gap in Serum or Plasma Ordered By: Tee Ricardo on 12-09-2024 Anion gap [Moles/Vol] 11 mmol/L 5-15 [facility] Automated lymphocyte count a s percentage of total leukocytesOrdered By: Tee Ricardo on 12-09-2024 Lymphocytes/100 WBC Auto (Unsp spec) 28.0 % - [facility] BUN/creatinine ratioOrdered By: Tee Davion on 12-09-2024 Urea nitrogen/Creatinine [Mass ratio] 15.6 mg/mg - [facility] Basic Metabolic Profile (BMP )on 12-09-2024 BUN/CRE 15.6 RATIO Normal - [facility] Comment on above: Performed By: #### L 500.2500, L300.8000, L100.0100 #### [facility] [address] [place], [address] Calcium [Mass/Vol] 9.5 mg/dL Normal 7.6-11.0 [facility] Comment on above: Performed By: #### L 500.2500, L300.8000, L100.0100 #### [facility] [address] [place], [address] Chloride [Moles/Vol] 102 mmol/L Normal 98-108 [facility] Comment on above: Performed By: #### L 500.2500, L300.8000, L100.0100 #### [facility] [address] [place], [address] CO2 [Moles/Vol] 24.5 mmol/L Normal 21.0-32.0 [facility] Comment on above: Performed By: #### L 500.2500, L300.8000, L100.0100 #### [facility] [address] [place], [address] Creatinine [Mass/Vol] 0.98 mg/dL Normal 0.70-1.20 [facility] Comment on above: Performed By: #### L 500.2500, L300.8000, L100.0100 #### [facility] [address] [place], [address] GAP 11 Normal 5-15 [facility] Comment on above: Performed By: #### L 500.2500, L300.8000, L100.0100 #### [facility] [address] [place], [address] GFR/1.73 sq M.predicted among non-blacks MDRD (S/P/Bld) [Vol rate/Area] 81 mL/min/{1.73_m2} Normal >60 [facility] Comment on above: Result Comment: mL/m in/1.73m2 CKD-EPI Creatinine Equation (2020) Performed By: #### L 500.2500, L300.8000, L100.0100 #### [facility] [address] [place], [address] Glucose [Mass/Vol] 82 mg/dL Normal 70-99 [facility] Comment on above: Performed By: #### L 500.2500, L300.8000, L100.0100 #### [facility] [address] [place], [address] Potassium [Moles/Vol] 3.9 mmol/L Normal 3.3-5.1 [facility] Comment on above: Performed By: #### L 500.2500, L300.8000, L100.0100 #### [facility] [address] [place], [address] Sodium [Moles/Vol] 137 mmol/L Normal 133-145 [facility] Comment on above: Performed By: #### L 500.2500, L300.8000, L100.0100 #### [facility] [address] [place], [address] Urea nitrogen [Mass/Vol] 15 mg/dL Normal 4-19 [facility] Comment on above: Performed By: #### L 500.2500, L300.8000, L100.0100 #### [facility] [address] [place], [address] Basophil percentageOrdered B y: Tee Davion on 12-09-2024 Basophils/100 WBC (Bld) 0.6 % 0-1 [facility] CBC W/Diff, Automatedon 05- Absolute Lymph 2.47 X10 3/uL Normal 0.83-4.51 [facility] Comment on above: Performed By: #### L 500.2500, L300.8000, L100.0100 #### [facility] [address] [place], [address] Absolute Neut 4.9 X10 3/uL Normal 2.0-7.7 [facility] Comment on above: Performed By: #### L 500.2500, L300.8000, L100.0100 #### [facility] [address] [place], [address] Basophils/100 WBC (Bld) 0.6 % Normal 0-1 [facility] Comment on above: Performed By: #### L 500.2500, L300.8000, L100.0100 #### [facility] [address] [place], [address] Eosinophils/100 WBC (Bld) 3.1 % Normal 0-5 [facility] Comment on above: Performed By: #### L 500.2500, L300.8000, L100.0100 #### [facility] [address] [place], [address] Erythrocyte distribution width (RBC) [Ratio] 12.7 % Normal 11.6-14.6 [facility] Comment on above: Performed By: #### L 500.2500, L300.8000, L100.0100 #### [facility] [address] [place], [address] Hematocrit (Bld) [Volume fraction] 49.1 % Normal 40-54 [facility] Comment on above: Performed By: #### L 500.2500, L300.8000, L100.0100 #### [facility] [address] [place], [address] Hemoglobin (Bld) [Mass/Vol] 16.5 g/dL Normal 13.0-16.5 [facility] Comment on above: Performed By: #### L 500.2500, L300.8000, L100.0100 #### [facility] [address] [place], [address] IG% 2.300 High 0.0-0.9 [facility] Comment on above: Result Comment: IG% - Immature Granulocytes (promyelocytes, myelocytes and metamyelocytes) > 1% indicates that a LEFT SHIFT is Present. Performed By: #### L 500.2500, L300.8000, L100.0100 #### [facility] [address] [place], [address] Lymphocytes/100 WBC (Bld) 28.0 % Normal 19-41 [facility] Comment on above: Performed By: #### L 500.2500, L300.8000, L100.0100 #### [facility] [address] [place], [address] MCH (RBC) [Entitic mass] 32.2 pg High 27.0-32.0 [facility] Comment on above: Performed By: #### L 500.2500, L300.8000, L100.0100 #### [facility] [address] [place], [address] MCHC (RBC) [Mass/Vol] 33.6 g/dL Normal 32-36 [facility] Comment on above: Performed By: #### L 500.2500, L300.8000, L100.0100 #### [facility] [address] [place], [address] MCV (RBC) [Entitic vol] 95.9 fL High 80-94 [facility] Comment on above: Performed By: #### L 500.2500, L300.8000, L100.0100 #### [facility] [address] [place], [address] Monocytes/100 WBC (Bld) 10.9 % High 0-10 [facility] Comment on above: Performed By: #### L 500.2500, L300.8000, L100.0100 #### [facility] [address] [place], [address] Neutrophils/100 WBC (Bld) 55.1 % Normal 47-70 [facility] Comment on above: Performed By: #### L 500.2500, L300.8000, L100.0100 #### [facility] [address] [place], [address] Nucleated RBC (Bld) [#/Vol] 0 10*3/uL Normal 0-5 [facility] Comment on above: Performed By: #### L 500.2500, L300.8000, L100.0100 #### [facility] [address] [place], [address] Platelet mean volume (Bld) [Entitic vol] 9.4 fL Normal 6.2-12.0 [facility] Comment on above: Performed By: #### L 500.2500, L300.8000, L100.0100 #### [facility] [address] [place], [address] Platelets (Bld) [#/Vol] 246 10*3/uL Normal 150-450 [facility] Comment on above: Performed By: #### L 500.2500, L300.8000, L100.0100 #### [facility] [address] [place], [address] RBC (Bld) [#/Vol] 5.12 10*6/uL Normal 4.6-6.2 [facility] Comment on above: Performed By: #### L 500.2500, L300.8000, L100.0100 #### [facility] [address] [place], [address] RDW SD 45.1 fl High 35.1-43.9 [facility] Comment on above: Performed By: #### L 500.2500, L300.8000, L100.0100 #### [facility] [address] [place], [address] WBC (Bld) [#/Vol] 8.8 10*3/uL Normal 4.4-11.0 [facility] Comment on above: Performed By: #### L 500.2500, L300.8000, L100.0100 #### [facility] [address] [place], [address] Carbon dioxide, total [Moles /volume] in Central venous bloodOrdered By: Tee Ricardo on 12-09-2024 CO2 [Moles/Vol] 24.5 mmol/L 21.0-32.0 [facility] Chest PA and Lateralon 12-09 Chest PA and Lateral [facility] Imaging Services [address] [place] [address] Chest PA and Lateral MR#: [id number] Acct: [id number] Name: GEETHA GONZALEZ Rep #: [id number] : 1950 M 74 From: Tal Mehta MD PCP: Dr. Tee Ricardo MD Status: REG CLI Study: Chest PA and Lateral Date of Exam: 12/09/24 Exam# [id number] Ordering Dr: Tee Ricardo MD PROCEDURE: CHEST PA AND LATERAL 12/09/2024 REASON FOR EXAM: SOB, WHEEZING TECHNIQUE: Frontal and lateral views of the chest. COMPARISON: Chest radiograph on 11/29/2024 and 11/02/2020 FINDINGS: Hardware: None Heart: The heart size is normal. Mediastinum: The mediastinal contour is unremarkable. Lungs: There is a nodular consolidation near the posterior costophrenic angle measuring 8 mm, unchanged since 2020. Bones: Degenerative changes are identified within the thoracic spine. RAD/Chest PA and Lateral IMPRESSION: 1. No acute cardiopulmonary abnormality. 2. Nodular focus at the posterior costophrenic angle measuring 8 mm, unchanged from 2020 and possibly a calcified granuloma. Reading Location: [id number] CC: Dr. Tee Ricardo MD Community Living Specialist: Signed Normal [facility] Chloride assayOrdered By: Justus Ricardo on 12-09-2024 Chloride [Moles/Vol] 102 mmol/L 98-108 [facility] D-Dimer Quantitative (DVT/PE )on 12-09-2024 D-DIMER QUANT 0.45 FEU/ug/m Normal 0.27-0.49 [facility] Comment on above: Result Comment: NORM AL D-Dimer level (<0.50) indicates no DVT or PE. Performed By: #### L 500.2500, L300.8000, L100.0100 #### [facility] [address] [place], [address] Eosinophil percentageOrdered By: Tee Ricardo on 12-09-2024 Eosinophils/100 WBC (Bld) 3.1 % 0-5 [facility] Erythrocyte distribution wid th ratioOrdered By: Tee Ricardo on 12-09-2024 Erythrocyte distribution width (RBC) [Ratio] 12.7 % 11.6-14.6 [facility] Erythrocyte distribution wid th standard deviationOrdered By: Tee Ricardo on 12-09-2024 Erythrocyte distribution width (RBC) [Ratio] 45.1 fl High 35.1-43.9 [facility] Glomerular filtration rate ( GFR) estimation/1.73 sq m using serum, plasma, or whole bOrdered By: Tee Ricardo on 12-09-2024 GFR/1.73 sq M.predicted among non-blacks MDRD (S/P/Bld) [Vol rate/Area] 81 mL/min/{1.73_m2} >60 [facility] Comment on above: mL/min/1.73m2 CKD-EP I Creatinine Equation (2020) Hematocrit Auto (Bld) [Volum e fraction]Ordered By: Tee Ricardo on 12-09-2024 Hematocrit (Bld) [Volume fraction] 49.1 % 40-54 [facility] Hemoglobin measurementOrdere d By: Tee Ricardo on 12-09-2024 Hemoglobin (Bld) [Mass/Vol] 16.5 g/dL 13.0-16.5 [facility] Immature granulocytes/100 WB C Auto (Bld)Ordered By: Tee Davion on 12-09-2024 Immature granulocytes/100 WBC (Bld) 2.300 % High 0.0-0.9 [facility] Comment on above: IG% - Immature Granu locytes (promyelocytes, myelocytes and metamyelocytes) > 1% indicates that a LEFT SHIFT is Present. Influenza virus A and B and SARS-CoV-2 (COVID-19) and Respiratory syncytial virus RNAOrdered By: Tee Millerok on 12-09-2024 SARS-CoV-2 (COVID-19) RNA DIANE+probe Ql (Unsp spec) [facility] M100.678on 12-09-2024 M100.678 Pending SARS-CoV-2 (COVID 19) Negative INFLUENZA A Negative INFLUENZA B Negative RSV PCR Negative Normal [facility] Comment on above: Performed By: #### M 100.678 #### [facility] [address] [place] [address], [address] MCV (mean corpuscular volume ) determinationOrdered By: [facility] on 12-09-2024 MCV (RBC) [Entitic vol] 95.9 fL High 80-94 [facility] Mean corpuscular hemoglobin (MCH) determinationOrdered By: [facility] 12-09-2024 MCH (RBC) [Entitic mass] 32.2 pg High 27.0-32.0 [facility] Mean corpuscular hemoglobin concentration (MCHC) determinationOrdered By: [facility] on 12-09-2024 MCHC (RBC) [Mass/Vol] 33.6 g/dL 32-36 [facility] Mean platelet volume determi nationOrdered By: [facility] 12-09-2024 Platelet mean volume (Bld) [Entitic vol] 9.4 fL 6.2-12.0 [facility] Monocyte percentageOrdered B y: Tee Ricardo on 12-09-2024 Monocytes/100 WBC (Bld) 10.9 % High 0-10 [facility] Neutrophil percentageOrdered By: Tee Millerok on 12-09-2024 Neutrophils/100 WBC (Bld) 55.1 % 47-70 [facility] Nucleated red blood cell per centageOrdered By: Tee Ricardo on 12-09-2024 Nucleated RBC/100 WBC (Bld) [Ratio] 0 % 0-5 [facility] Platelet countOrdered By: Justus Ricardo on 12-09-2024 Platelets (Bld) [#/Vol] 246 10*3/uL 150-450 [facility] Potassium measurement (mass/ volume)Ordered By: Tee Ricardo on 12-09-2024 Potassium (Unsp spec) [Mass/Vol] 3.9 mmol/L 3.3-5.1 [facility] RBC Auto (Bld) [#/Vol]Ordere d By: Tee Ricardo on 12-09-2024 RBC (Bld) [#/Vol] 5.12 10*6/uL 4.6-6.2 [facility] Serum creatinine measurement (mass/volume)Ordered By: Tee Ricardo on 12-09-2024 Creatinine [Mass/Vol] 0.98 mg/dL 0.70-1.20 [facility] Serum glucose measurement (m ass/volume)Ordered By: Tee Ricardo on 12-09-2024 Glucose [Mass/Vol] 82 mg/dL 70-99 [facility] Serum or plasma calcium gopal urement (mass/volume)Ordered By: Tee Ricardo on 12-09-2024 Calcium [Mass/Vol] 9.5 mg/dL 7.6-11.0 [facility] Serum or plasma urea nitroge n measurement (mass/volume)Ordered By: Tee Ricardo on 12-09-2024 Urea nitrogen [Mass/Vol] 15 mg/dL 4-19 [facility] Sodium levelOrdered By: Tee Ricardo on 12-09-2024 Sodium [Moles/Vol] 137 mmol/L 133-145 [facility] White blood cell (WBC) count Ordered By: Tee Ricardo on 12-09-2024 WBC (Bld) [#/Vol] 8.8 10*3/uL 4.4-11.0 [facility] Chest PA and Lateralon 11-29 Chest PA and Lateral [facility] Imaging Services [address] [place] [address] Chest PA and Lateral MR#: [id number] Acct: [id number] Name: GEETHA GONZALEZ Rep #: [id number] : 1950 M 74 From: Walter Kern MD PCP: Dr. Tee Ricardo MD Status: REG CLI Study: Chest PA and Lateral Date of Exam: 11/29/24 Exam# [id number] Ordering Dr: Tee Ricardo MD PROCEDURE: CHEST PA AND LATERAL 11/29/2024 REASON FOR EXAM: SOB TECHNIQUE: Frontal and lateral views of the chest. COMPARISON: 11/02/2020 FINDINGS: Lungs: Lungs clear of pneumonia and congestion. Pleura: No pleural effusions, thickening, or pneumothorax. Heart: Normal in size and configuration. Mediastinum/Jeremias: Unremarkable. Great vessels: Unremarkable. Bones/soft tissues: Multilevel spondylosis. RAD/Chest PA and Lateral IMPRESSION: No active cardiopulmonary disease. Reading Location: [facility] CC: Dr. Tee Ricardo MD Community Living Specialist: Signed Normal [facility] FLU AND RSV PANEL MOLECULARo n 11-29-2024 FLU AND RSV PANEL INFLUENZA A Negative INFLUENZA B Negative RSV PCR Negative Normal [facility] Comment on above: Performed By: #### M 100.186 #### [facility] [address] [place] [address], [address] No Panel InformationOrdered By: Tee Ricardo on 11-29-2024 Influenza & RSV (PCR) [facility] Influenza virus A and B and SARS-CoV-2 (COVID-19) and Respiratory syncytial virus RNAOrdered By: Tee Ricardo on 10-14-2024 SARS-CoV-2 (COVID-19) RNA DIANE+probe Ql (Unsp spec) [facility] M100.678on 10-14-2024 SARS-CoV-2 (COVID-19) RNA DIANE+probe Ql (Unsp spec) SARS-CoV-2 (COVID 19) Negative INFLUENZA A Negative INFLUENZA B Negative RSV PCR Negative * This is an amended result. * A prior result that was reported as final has been changed. 10/14/24 1242 by ARTI Davenport [facility] Comment on above: Performed By: #### M 100.678 ####[facility] [address] [place], [place], [address] Abdomen Limitedon 07-26-2024 Abdomen Limited [facility] Imaging Services [address] [place], [place] [address] Abdomen Limited MR#: [id number] Acct: [id number] Name: GEETHA GONZALEZ Rep #: [id number] : 1950 M 74 From: Pratik Maldonado PCP: Dr. Tee Rciardo MD Status: [facility] CLI Study: Abdomen Limited Date of Exam: 07/26/24 Exam# [id number] Ordering Dr: Tee Ricardo [place] [id number] STUDY: ABDOMINAL ULTRASOUND - RIGHT UPPER QUADRANT REASON FOR VISIT: Male, 74 years old. ABDOMEN PAIN Abnormal levels of other serum enzymes TECHNIQUE: Ultrasound evaluation of the right upper quadrant was performed with real-time and static arreola-scale imaging. TECHNICAL QUALITY: Adequate. COMPARISON: None FINDINGS: Liver: There is normal echogenicity of the liver. The bile ducts are within normal limits. There is hepatic color flow. The direction of portal flow is hepatopetal. There is no demonstrated mass lesion. Gallbladder: Normal distended gallbladder. The gallbladder wall measures 1.2 mm. There is a negative sonographic Bingham''s sign. There is no pericholecystic fluid. There are no gallstones. Common Bile Duct (C.B.D.): The common bile duct measures ( in mm): 2 Pancreas: Normal size of the head, body of the pancreas. There is slight increased echogenicity echogenicity of the pancreas. There is no demonstrated pancreatic mass or cyst. Right Kidney: Normal size of the right kidney. The right kidney measures 10.4 cm. . Normal renal cortex. There is no demonstrated renal mass or cyst. There is no right hydronephrosis. Aorta: It is not visualized. There is too much overlying bowel gas. . US/Abdomen Limited IMPRESSION: No acute findings. Electronically Signed: Pratik Senior MD at 14:55 EST , CC: Dr. Tee Ricardo MD Community Living Specialist: Signed Normal [facility] Hepatitis Panel Acuteon COMMENT Comment Normal . [facility] Comment on above: Result Comment: Not infected with HCV unless early or acute infection is suspected (which may be delayed in an immunocompromised individual), or other evidence exists to indicate HCV infection. Performed at: - [facility] [id number] Professor Of Environmental Science: Arcadio Carlson PhD, Phone: [phone] Performed By: #### M 100.249 #### [facility] [address] [place], [place], [id number] HEP B CORE,IgM Negative Normal Negative [facility] Comment on above: Performed By: #### M [id number] #### [facility] [address] [place], [place], [id number] HEP B SURF AG Negative Normal Negative [facility] Comment on above: Performed By: #### M 100678 #### [facility] [address] [place], [place], [id number] HEP C VIRUS AB Non-Reactive Normal Non Reactive [facility] Comment on above: Performed By: #### M [id number] #### [facility] [address] [place], [place], [address] HEPATITIS A-IgM Negative Normal Negative [facility] Comment on above: Result Comment: A ne gative anti-HAV IgM result suggests no recent or current HAV infection. Performed By: #### M 100.678 #### [facility] [address] [place], [place], [id number] HBV surface Ag IA QlOrdered By: Tee Ricardo on 07-22-2024 Hepatitis B Surface Antigen Negative Negative [facility] Hepatitis A virus IgM antibo dy assayOrdered By: Tee Ricardo on 07-22-2024 Hepatitis A IgM Antibody Negative Negative [facility] Comment on above: A negative anti-HAV IgM result suggests no recent orcurrent HAV infection. Hepatitis B virus core IgM a ntibody assayOrdered By: Tee Ricardo on 07-22-2024 Hepatitis B Core IgM Antibody Negative Negative [facility] Hepatitis C virus antibody a ssayOrdered By: Tee Ricardo on 07-22-2024 Hepatitis C Antibody (EIA) Non-Reactive Non Reactive [facility] No Panel InformationOrdered By: Tee Ricardo on 07-22-2024 Hepatitis C Antibody Comment Comment . [facility] Comment on above: Not infected with HC V unless early or acute infection issuspected (which may be delayed in an immunocompromisedindividual), or other evidence exists to indicate HCVinfection.Performed at: - [facility] [id number] Director: Arcadio Carlson PhD, Phone: [phone] [id number] DOrdered By: Rafaela Ricardo on 07-15-2024 Vitamin D 25-Hydroxy 34.1 ng/mL [facility] Comment on above: Vitamin D 25([place]) Sta tus Range Deficiency <20 ng/mL (50nmol/L) Insufficiency 20 - 30 ng/mL (50 - 75 nmol/L) Sufficiency 30 - 100 ng/mL (75 - 250 nmol/L) Toxicity >100 ng/mL (>250 nmol/L) Absolute neutrophil countOrd ered By: Tee Ricardo on 12-23-2024 Neutrophils (Bld) [#/Vol] 3.3 10*3/uL 2.0-7.7 [facility] Albumin to globulin ratioOrd ered By: Tee Ricardo on 07-15-2024 Albumin/Globulin [Mass ratio] 1.1 {ratio} 0.9-2.4 [facility] Basophil percentageOrdered B y: Tee Ricardo on 07-15-2024 Basophils/100 WBC (Bld) 1.0 % 0-1 [facility] Bilirubin, totalOrdered By: Tee Ricardo on 07-15-2024 Bilirubin [Mass/Vol] 0.60 mg/dL 0.20-1.00 [facility] Comment on above: For patients on eltr ombopag therapy, use of Dimension [place] TBIL is not recommended. Blood urea nitrogen (BUN)/cr eatinine ratioOrdered By: Tee Davion on 07-15-2024 Urea nitrogen/Creatinine [Mass ratio] 17.2 mg/mg 10-20 [facility] CBC W/Diff, Automatedon 06-24 Absolute Lymph 2.06 X10 3/uL Normal 0.83-4.51 [facility] Comment on above: Performed By: #### M 100.678 #### [facility] [address] [place], [address] Absolute Neut 3.3 X10 3/uL Normal 2.0-7.7 [facility] Comment on above: Performed By: #### M 100.678 #### [facility] [address] [place], [address] Basophils/100 WBC (Bld) 1.0 % Normal 0-1 [facility] Comment on above: Performed By: #### M 100.678 #### [facility] [address] [place], [address] Eosinophils/100 WBC (Bld) 5.1 % High 0-5 [facility] Comment on above: Performed By: #### M 100.678 #### [facility] [address] [place], [address] Erythrocyte distribution width (RBC) [Ratio] 12.7 % Normal 11.6-14.6 [facility] Comment on above: Performed By: #### M 100.678 #### [facility] [address] [place], [address] Hematocrit (Bld) [Volume fraction] 45.3 % Normal 40-54 [facility] Comment on above: Performed By: #### M 100.678 #### [facility] [address] [place], [address] Hemoglobin (Bld) [Mass/Vol] 15.4 g/dL Normal 13.0-16.5 [facility] Comment on above: Performed By: #### M 100.678 #### [facility] [address] [place], [address] IG% 0.400 Normal 0.0-0.9 [facility] Comment on above: Result Comment: IG% - Immature Granulocytes (promyelocytes, myelocytes and metamyelocytes) > 1% indicates that a LEFT SHIFT is Present. Performed By: #### M 100.678 #### [facility] [address] [place], [address] Lymphocytes/100 WBC (Bld) 30.7 % Normal 19-41 [facility] Comment on above: Performed By: #### M 100.678 #### [facility] [address] [place], [address] MCH (RBC) [Entitic mass] 32.6 pg High 27.0-32.0 [facility] Comment on above: Performed By: #### M 100.678 #### [facility] [address] [place], [address] MCHC (RBC) [Mass/Vol] 34.0 g/dL Normal 32-36 [facility] Comment on above: Performed By: #### M 100.678 #### [facility] [address] [place], [address] MCV (RBC) [Entitic vol] 96.0 fL High 80-94 [facility] Comment on above: Performed By: #### M 100.678 #### [facility] [address] [place], [address] Monocytes/100 WBC (Bld) 13.4 % High 0-10 [facility] Comment on above: Performed By: #### M 100.678 #### [facility] [address] [place], [address] Neutrophils/100 WBC (Bld) 49.4 % Normal 47-70 [facility] Comment on above: Performed By: #### M 100.678 #### [facility] [address] [place], [address] Nucleated RBC (Bld) [#/Vol] 0 10*3/uL Normal 0-5 [facility] Comment on above: Performed By: #### M 100.678 #### [facility] [address] [place], [address] Platelet mean volume (Bld) [Entitic vol] 9.8 fL Normal 6.2-12.0 [facility] Comment on above: Performed By: #### M 100.678 #### [facility] [address] [place], [address] Platelets (Bld) [#/Vol] 258 10*3/uL Normal 150-450 [facility] Comment on above: Performed By: #### M 100.678 #### [facility] [address] [place], [address] RBC (Bld) [#/Vol] 4.72 10*6/uL Normal 4.6-6.2 [facility] Comment on above: Performed By: #### M 100.678 #### [facility] [address] [place], [address] RDW SD 44.8 fl High 35.1-43.9 [facility] Comment on above: Performed By: #### M 100.678 #### [facility] [address] [place], [address] WBC (Bld) [#/Vol] 6.7 10*3/uL Normal 4.4-11.0 [facility] Comment on above: Performed By: #### M 100.678 #### [facility] [address] [place], [address] Carbon dioxide measurementOr dered By: Tee Ricardo on 07-15-2024 CO2 [Moles/Vol] 28.0 mmol/L 21.0-32.0 [facility] Chloride measurementOrdered By: Tee Ricardo on 07-15-2024 Chloride [Moles/Vol] 105 mmol/L 98-107 [facility] Comprehensive Metabolic Prof ilon 07-15-2024 Albumin [Mass/Vol] 3.8 g/dL Normal 3.2-5.0 [facility] Comment on above: Performed By: #### M 100.678 #### [facility] [address] [place], [address] Albumin/Globulin [Mass ratio] 1.1 {ratio} Normal 0.9-2.4 [facility] Comment on above: Performed By: #### M 100.678 #### [facility] [address] [place], [address] ALK P 116 U/L Normal 45-117 [facility] Comment on above: Performed By: #### M 100.678 #### [facility] [address] [place], [address] ALT [Catalytic activity/Vol] 144 U/L High 16-61 [facility] Comment on above: Performed By: #### M 100.678 #### [facility] [address] [place], [address] AST [Catalytic activity/Vol] 75 U/L High 15-37 [facility] Comment on above: Performed By: #### M 100.678 #### [facility] [address] [place], [address] Bilirubin [Mass/Vol] 0.60 mg/dL Normal 0.20-1.00 [facility] Comment on above: Result Comment: For patients on eltrombopag therapy, use of Dimension [place] TBIL is not recommended. Performed By: #### M 100.678 #### [facility] [address] [place], [address] BUN/CRE 17.2 RATIO Normal 10-20 [facility] Comment on above: Performed By: #### M 100.678 #### [facility] [address] [place], [address] CA,Total 9.0 mg/dL Normal 8.5-10.1 [facility] Comment on above: Performed By: #### M 100.678 #### [facility] [address] [place], [address] Chloride [Moles/Vol] 105 mmol/L Normal 98-107 [facility] Comment on above: Performed By: #### M 100.678 #### [facility] [address] [place], [address] CO2 [Moles/Vol] 28.0 mmol/L Normal 21.0-32.0 [facility] Comment on above: Performed By: #### M 100.678 #### [facility] [address] [place], [address] Creatinine [Mass/Vol] 0.99 mg/dL Normal 0.70-1.30 [facility] Comment on above: Result Comment: The validity of the calculated GFR GFRAA in patients over 70 years has not been determined. Clinical correlation is essential. Performed By: #### M 100.678 #### [facility] [address] [place], [address] EST GFR - AA 96 mL/min Normal >60 [facility] Comment on above: Result Comment: Afri can [facility] GFR Calc Performed By: #### M 100.678 #### [facility] [address] [place], [address] GAP 4 Low 5-15 [facility] [facility] Comment on above: Performed By: #### M [id number] #### [facility] [address] [place], [address] GFR/1.73 sq M.predicted among non-blacks MDRD (S/P/Bld) [Vol rate/Area] 79 mL/min/{1.73_m2} Normal >60 [facility] Comment on above: Result Comment: Non- GFR Calc Performed By: #### M [id number] #### [facility] [address] [place], [address] Globulin (S) [Mass/Vol] 3.5 g/dL Normal 2.2-4.2 [facility] Comment on above: Performed By: #### M [id number] #### [facility] [address] [place], [address] Glucose [Mass/Vol] 78 mg/dL Normal 74-106 [facility] Comment on above: Performed By: #### M [id number] #### [facility] [address] [place], [address] Potassium [Moles/Vol] 4.0 mmol/L Normal 3.5-5.1 [facility] Comment on above: Performed By: #### M [id number] #### [facility] [address] [place], [address] Sodium [Moles/Vol] 137 mmol/L Normal 136-145 [facility] Comment on above: Performed By: #### M [id number] #### [facility] [address] [place], [place], [id number] T PROT 7.3 g/dL Normal 6.4-8.2 [facility] Comment on above: Performed By: #### M [id number] #### [facility] [address] [place], [place], [id number] Urea nitrogen [Mass/Vol] 17 mg/dL Normal 7-18 [facility] Comment on above: Performed By: #### M [id number] #### [facility] [address] [place], [place], [id number] Eosinophil percentageOrdered By: Tee Ricardo on 07-15-2024 Eosinophils/100 WBC (Bld) 5.1 % High 0-5 [facility] Erythrocyte distribution wid th ratioOrdered By: Tee Millerok on 07-15-2024 Erythrocyte distribution width (RBC) [Ratio] 12.7 % 11.6-14.6 [facility] Erythrocyte distribution wid th standard deviationOrdered By: Tee Davion on 07-15-2024 Erythrocyte distribution width (RBC) [Entitic vol] 44.8 fL High 35.1-43.9 [facility] Estimated glomerular filtrat ion rate (GFR) AmericanOrdered By: Tee Ricardo on 07-15-2024 Estimated GFR (MDRD) Amer 96 mL/min >60 [facility] Comment on above: GFR Calc Glomerular filtration rate ( GFR) estimationOrdered By: eTe Ricardo on 07-15-2024 Estimated GFR (MDRD) Non-Af Amer 79 mL/min >60 [facility] Comment on above: Non- GFR Calc Glucose measurementOrdered B y: Tee Ricardo on 07-15-2024 Glucose [Mass/Vol] 78 mg/dL 74-106 [facility] Hematocrit Auto (Bld) [Volum e fraction]Ordered By: Tee Ricardo on 07-15-2024 Hematocrit (Bld) [Volume fraction] 45.3 % 40-54 [facility] Hemoglobin measurementOrdere d By: Tee Ricardo on 07-15-2024 Hemoglobin (Bld) [Mass/Vol] 15.4 g/dL 13.0-16.5 [facility] Immature granulocytes/100 WB C Auto (Bld)Ordered By: Tee Ricardo on 07-15-2024 Immature granulocytes/100 WBC (Bld) 0.400 % 0.0-0.9 [facility] Comment on above: IG% - Immature Granu locytes (promyelocytes, myelocytes and metamyelocytes) > 1% indicates that a LEFT SHIFT is Present. Laboratory - Chemistry and C hemistry - challengeOrdered By: Tee Ricardo on 07-15-2024 AST [Catalytic activity/Vol] 75 U/L High 15-37 [facility] Lymphocytes Auto (Unsp spec) [#/Vol]Ordered By: Tee Ricardo on 07-15-2024 Lymphocytes (Bld) [#/Vol] 2.06 10*3/uL 0.83-4.51 [facility] Lymphocytes/100 WBC Auto (Un sp spec)Ordered By: Tee Ricardo on 07-15-2024 Lymphocytes/100 WBC (Bld) 30.7 % 19-41 [facility] MCV (mean corpuscular volume ) determinationOrdered By: Tee Ricardo on 07-15-2024 MCV (RBC) [Entitic vol] 96.0 fL High 80-94 [facility] Mean corpuscular hemoglobin (MCH) determinationOrdered By: Tee Ricardo 07-15-2024 MCH (RBC) [Entitic mass] 32.6 pg High 27.0-32.0 [facility] Mean corpuscular hemoglobin concentration (MCHC) determinationOrdered By: Tee Ricardo on 07-15-2024 MCHC (RBC) [Mass/Vol] 34.0 g/dL 32-36 [facility] Mean platelet volume determi nationOrdered By: Tee Ricardo on 07-15-2024 Platelet mean volume (Bld) [Entitic vol] 9.8 fL 6.2-12.0 [facility] Monocyte percentageOrdered B y: Tee Ricardo on 07-15-2024 Monocytes/100 WBC (Bld) 13.4 % High 0-10 [facility] Neutrophil percentageOrdered By: Tee Ricardo on 07-15-2024 Neutrophils/100 WBC (Bld) 49.4 % 47-70 [facility] Nucleated red blood cell per centageOrdered By: Tee Ricardo on 07-15-2024 Nucleated RBC/100 WBC (Bld) [Ratio] 0 % 0-5 [facility] Platelet countOrdered By: Justus Ricardo on 07-15-2024 Platelets (Bld) [#/Vol] 258 10*3/uL 150-450 [facility] Potassium measurementOrdered By: Tee Ricardo on 07-15-2024 Potassium [Moles/Vol] 4.0 mmol/L 3.5-5.1 [facility] RBC Auto (Bld) [#/Vol]Ordere d By: Tee Ricardo on 07-15-2024 RBC (Bld) [#/Vol] 4.72 10*6/uL 4.6-6.2 [facility] Serum anion gap measurementO rdered By: Tee Ricardo on 07-15-2024 Anion gap [Moles/Vol] 4 mmol/L Low 5-15 [facility] Serum globulin measurementOr dered By: Tee Ricardo 07-15-2024 Globulin (S) [Mass/Vol] 3.5 g/dL 2.2-4.2 [facility] Serum or plasma alanine maldonado otransferase (ALT) measurementOrdered By: Tee Ricardo on 07-15-2024 ALT [Catalytic activity/Vol] 144 U/L High 16-61 [facility] Serum or plasma albumin gopal urement (mass/volume)Ordered By: Tee Ricardo on 07-15-2024 Albumin [Mass/Vol] 3.8 g/dL 3.2-5.0 [facility] Serum or plasma alkaline darrell sphatase measurementOrdered By: Tee Ricardo 07-15-2024 ALP [Catalytic activity/Vol] 116 U/L 45-117 [facility] Serum or plasma calcium gopal urement (mass/volume)Ordered By: Tee Ricardo on 07-15-2024 Calcium [Mass/Vol] 9.0 mg/dL 8.5-10.1 [facility] Serum or plasma creatinine m easurement (mass/volume)Ordered By: Tee Ricardo on 07-15-2024 Creatinine [Mass/Vol] 0.99 mg/dL 0.70-1.30 [facility] Comment on above: The validity of the calculated GFR & GFRAA in patients over 70 years has not been determined. Clinical correlation is essential. Serum or plasma urea nitroge n measurement (mass/volume)Ordered By: Tee Ricardo on 07-15-2024 Urea nitrogen [Mass/Vol] 17 mg/dL 7-18 [facility] Sodium levelOrdered By: Tee Ricardo on 07-15-2024 Sodium [Moles/Vol] 137 mmol/L 136-145 [facility] TSH QnOrdered By: Tee Ricardo o n 07-15-2024 Thyroid Stimulating Hormone (TSH) 2.120 uIU/mL 0.358-3.740 [facility] Thyroid Stim Hormone (TSH)on 07-15-2024 TSH 2.120 uIU/mL Normal 0.358-3.740 [facility] Comment on above: Performed By: #### M [id number] #### [facility] [address] [place], [place], [id number] Total proteinOrdered By: Tee Ricardo on 07-15-2024 Protein [Mass/Vol] 7.3 g/dL 6.4-8.2 [facility] Vitamin D,25 Hydroxyon 07-15 Vitamin D 25-OH 34.1 ng/mL Normal [facility] Comment on above: Result Comment: Janna min D 25(OH) Status Range Deficiency <20 ng/mL (50nmol/L) Insufficiency 20 - 30 ng/mL (50 - 75 nmol/L) Sufficiency 30 - 100 ng/mL (75 - 250 nmol/L) Toxicity >100 ng/mL (>250 nmol/L) Performed By: #### M [id number] #### [facility] [address] [place], [place], [id number] White blood cell (WBC) count Ordered By: Tee Ricardo on 07-15-2024 WBC (Bld) [#/Vol] 6.7 10*3/uL 4.4-11.0 [facility] - Microbiology an d Antimicrobial susceptibilityOrdered By: Tee Ricardo on 09-26-2023 SARS-CoV-2 (COVID-19) RNA DIANE+probe Ql (Unsp spec) [facility] Absolute lymphocyte countOrd ered By: Tee Ricardo on 07-13-2023 Lymphocytes Auto (Unsp spec) [#/Vol] 2.07 10*3/uL 0.83-4.51 [facility] Basophil percentageOrdered B y: Tee Ricardo on 07-13-2023 Basophils/100 WBC (Bld) 0.7 % 0-1 [facility] Bilirubin [Mass/Vol] 0.70 mg/dL 0.20-1.00 [facility] Comment on above: For patients on eltr ombopag therapy, use of Dimension [place] TBIL is not recommended. Chloride [Moles/Vol] 106 mmol/L 98-107 [facility] Eosinophils/100 WBC (Bld) 3.6 % 0-5 [facility] Glucose [Mass/Vol] 90 mg/dL 74-106 [facility] Neutrophils (Bld) [#/Vol] 5.1 10*3/uL 2.0-7.7 [facility] Neutrophils/100 WBC (Bld) 61.6 % 47-70 [facility] Potassium [Moles/Vol] 3.8 mmol/L 3.5-5.1 [facility] Protein [Mass/Vol] 7.4 g/dL 6.4-8.2 [facility] Sodium [Moles/Vol] 141 mmol/L 136-145 [facility] WBC (Bld) [#/Vol] 8.2 10*3/uL 4.4-11.0 [facility] Blood erythrocytes count (nu mber/volume)Ordered By: Tee Ricardo on 07-13-2023 RBC (Bld) [#/Vol] 4.62 10*6/uL 4.6-6.2 [facility] Blood hemoglobin measurement (mass/volume)Ordered By: Tee Ricardo on 07-13-2023 Hemoglobin (Bld) [Mass/Vol] 15.0 g/dL 13.0-16.5 [facility] Blood lymphocytes/100 leukoc ytesOrdered By: Tee Ricardo on 07-13-2023 Lymphocytes/100 WBC (Bld) 25.1 % 19-41 [facility] Blood monocytes/100 leukocyt esOrdered By: [facility] Davion on 07-13-2023 Monocytes/100 WBC (Bld) 8.4 % 0-10 [facility] Blood platelet mean volumeOr dered By: Tee Davion on 07-13-2023 Platelet mean volume (Bld) [Entitic vol] 9.7 fL 6.2-12.0 [facility] Determination of erythrocyte mean corpuscular volume (MCV)Ordered By: Tee Ricardo on 07-13-2023 MCV (RBC) [Entitic vol] 96.3 fL 80-94 [facility] Hematocrit Auto (Bld) [Volum e fraction][facility] Hematocrit (Bld) [Volume fraction] 44.5 % 40-54 [facility] - Chemistry and C hemistry - challengeOrdered By: [facility] 07-13-2023 ALP [Catalytic activity/Vol] 105 U/L 45-117 [facility] ALT [Catalytic activity/Vol] 35 U/L 16-61 [facility] CO2 [Moles/Vol] 29.0 mmol/L 21.0-32.0 [facility] Globulin (S) [Mass/Vol] 3.6 g/dL 2.2-4.2 [facility] Urea nitrogen/Creatinine [Mass ratio] 14.2 mg/mg 10-20 [facility] - Hematology and Cell countsOrdered By: [facility] 07-13-2023 Erythrocyte distribution width (RBC) [Entitic vol] 44.1 fL 35.1-43.9 [facility] Erythrocyte distribution width (RBC) [Ratio] 12.7 % 11.6-14.6 [facility] Immature granulocytes/100 WBC (Bld) 0.600 % 0.0-0.9 [facility] Comment on above: IG% - Immature Granu locytes (promyelocytes, myelocytes and metamyelocytes) > 1% indicates that a LEFT SHIFT is Present. MCH (RBC) [Entitic mass] 32.5 pg 27.0-32.0 [facility] Nucleated RBC/100 WBC (Bld) [Ratio] 0 % 0-5 [facility] Auto (RBC) [Mass/Vol]Or dered By: Tee Ricardo on 07-13-2023 MCHC (RBC) [Mass/Vol] 33.7 g/dL 32-36 [facility] No Panel InformationOrdered By: Tee Ricardo on 07-13-2023 Estimated GFR (MDRD) Amer 88 mL/min >60 [facility] Comment on above: GFR Calc Estimated GFR (MDRD) Non-Af Amer 73 mL/min >60 [facility] Comment on above: Non- GFR Calc Thyroid Stimulating Hormone (TSH) 0.25 uIU/mL 0.358-3.74 [facility] Vitamin D 25-Hydroxy 42.6 ng/mL [facility] Comment on above: Vitamin D 25(OH) Sta tus Range Deficiency <20 ng/mL (50nmol/L) Insufficiency 20 - 30 ng/mL (50 - 75 nmol/L) Sufficiency 30 - 100 ng/mL (75 - 250 nmol/L) Toxicity >100 ng/mL (>250 nmol/L) Platelets bldOrdered By: Tee Ricardo on 07-13-2023 Platelets (Bld) [#/Vol] 308 10*3/uL 150-450 [facility] Serum or plasma albumin gopal urement (mass/volume)Ordered By: Tee Ricardo on 07-13-2023 Albumin [Mass/Vol] 3.8 g/dL 3.2-5.0 [facility] Serum or plasma albumin/glob ulin mass ratioOrdered By: Tee Ricardo 07-13-2023 Albumin/Globulin [Mass ratio] 1.1 {ratio} 0.9-2.4 [facility] Serum or plasma calcium gopal urement (mass/volume)Ordered By: Tee Ricardo on 07-13-2023 Calcium [Mass/Vol] 9.1 mg/dL 8.5-10.1 [facility] Serum or plasma creatinine m easurement (mass/volume)Ordered By: Tee Ricardo on 07-13-2023 Creatinine [Mass/Vol] 1.06 mg/dL 0.70-1.30 [facility] Comment on above: The validity of the calculated GFR & GFRAA in patients over 70 years has not been determined. Clinical correlation is essential. Serum or plasma urea nitroge n measurement (mass/volume)Ordered By: Tee Ricardo on 07-13-2023 Urea nitrogen [Mass/Vol] 15 mg/dL 7-18 [facility] Thin prep Papanicolaou smear with manual screeningOrdered By: Tee Ricardo on 07-13-2023 Thin prep Papanicolaou smear with manual screening 23 U/L 15-37 [facility] Thin prep Papanicolaou smear with manual screening 6 5-15 [facility] Absolute lymphocyte countOrd ered By: Tee Ricardo on 06-06-2023 Lymphocytes Auto (Unsp spec) [#/Vol] 2.03 10*3/uL 0.83-4.51 [facility] Basophil percentageOrdered B y: Tee Ricardo on 06-06-2023 Basophils/100 WBC (Bld) 0.5 % 0-1 [facility] Chloride [Moles/Vol] 106 mmol/L 98-107 [facility] Eosinophils/100 WBC (Bld) 2.9 % 0-5 [facility] Glucose [Mass/Vol] 89 mg/dL 74-106 [facility] Neutrophils (Bld) [#/Vol] 3.7 10*3/uL 2.0-7.7 [facility] Neutrophils/100 WBC (Bld) 55.1 % 47-70 [facility] Potassium [Moles/Vol] 3.7 mmol/L 3.5-5.1 [facility] Sodium [Moles/Vol] 139 mmol/L 136-145 [facility] WBC (Bld) [#/Vol] 6.7 10*3/uL 4.4-11.0 [facility] Blood erythrocytes count (nu mber/volume)Ordered By: Tee Ricardo on 06-06-2023 RBC (Bld) [#/Vol] 4.48 10*6/uL 4.6-6.2 [facility] Blood hemoglobin measurement (mass/volume)Ordered By: Tee Ricardo on 06-06-2023 Hemoglobin (Bld) [Mass/Vol] 14.3 g/dL 13.0-16.5 [facility] Blood lymphocytes/100 leukoc ytesOrdered By: Tee Ricardo on 06-06-2023 Lymphocytes/100 WBC (Bld) 30.5 % 19-41 [facility] Blood monocytes/100 leukocyt esOrdered By: Tee Ricardo on 06-06-2023 Monocytes/100 WBC (Bld) 10.7 % 0-10 [facility] Blood platelet mean volumeOr dered By: Tee Ricardo on 06-06-2023 Platelet mean volume (Bld) [Entitic vol] 9.5 fL 6.2-12.0 [facility] Determination of erythrocyte mean corpuscular volume (MCV)Ordered By: Tee Ricardo on 06-06-2023 MCV (RBC) [Entitic vol] 96.4 fL 80-94 [facility] Hematocrit Auto (Bld) [Volum e fraction]Ordered By: Tee Ricardo on 06-06-2023 Hematocrit (Bld) [Volume fraction] 43.2 % 40-54 [facility] INR in Blood by Coagulation assayOrdered By: Tee Ricardo 06-06-2023 INR Coag (Bld) [Relative time] 1.0 {INR} [facility] - Chemistry and C hemistry - challengeOrdered By: Tee Ricardo 06-06-2023 CO2 [Moles/Vol] 27.0 mmol/L 21.0-32.0 [facility] Urea nitrogen/Creatinine [Mass ratio] 17.5 mg/mg 10-20 [facility] - CoagulationOrde red By: Tee Ricardo 06-06-2023 aPTT Coag (Bld) [Time] 30.2 s 24.1-36.2 [facility] PT Coag (PPP) [Time] 13.5 s 11.7-14.9 [facility] Laboratory - Hematology and Cell countsOrdered By: Tee Ricardo 06-06-2023 Erythrocyte distribution width (RBC) [Entitic vol] 45.8 fL 35.1-43.9 [facility] Erythrocyte distribution width (RBC) [Ratio] 12.8 % 11.6-14.6 [facility] Immature granulocytes/100 WBC (Bld) 0.300 % 0.0-0.9 [facility] Comment on above: IG% - Immature Granu locytes (promyelocytes, myelocytes and metamyelocytes) > 1% indicates that a LEFT SHIFT is Present. MCH (RBC) [Entitic mass] 31.9 pg 27.0-32.0 [facility] Nucleated RBC/100 WBC (Bld) [Ratio] 0 % 0-5 [facility] MCHC Auto (RBC) [Mass/Vol]Or dered By: Tee Ricardo on 06-06-2023 MCHC (RBC) [Mass/Vol] 33.1 g/dL 32-36 [facility] No Panel InformationOrdered By: Tee Ricardo on 06-06-2023 Estimated GFR (MDRD) Amer 91 mL/min >60 [facility] Comment on above: GFR Calc Estimated GFR (MDRD) Non-Af Amer 75 mL/min >60 [facility] Comment on above: Non- GFR Calc Platelets bldOrdered By: Tee Ricardo on 06-06-2023 Platelets (Bld) [#/Vol] 245 10*3/uL 150-450 [facility] Serum or plasma calcium gopal urement (mass/volume)Ordered By: Tee Ricardo on 06-06-2023 Calcium [Mass/Vol] 8.9 mg/dL 8.5-10.1 [facility] Serum or plasma creatinine m easurement (mass/volume)Ordered By: Tee Ricardo on 06-06-2023 Creatinine [Mass/Vol] 1.03 mg/dL 0.70-1.30 [facility] Comment on above: The validity of the calculated GFR & GFRAA in patients over 70 years has not been determined. Clinical correlation is essential. Serum or plasma urea nitroge n measurement (mass/volume)Ordered By: Tee Ricardo on 06-06-2023 Urea nitrogen [Mass/Vol] 18 mg/dL 7-18 [facility] Thin prep Papanicolaou smear with manual screeningOrdered By: Tee Ricardo on 06-06-2023 Thin prep Papanicolaou smear with manual screening 6 5-15 [facility] Basophil percentageOrdered B y: Annmarie Huerta on 06-02-2023 Bilirubin [Mass/Vol] 0.60 mg/dL 0.20-1.00 [facility] Comment on above: For patients on eltr ombopag therapy, use of Dimension [place] TBIL is not recommended. Chloride [Moles/Vol] 106 mmol/L 98-107 [facility] Glucose [Mass/Vol] 74 mg/dL 74-106 [facility] Potassium [Moles/Vol] 4.0 mmol/L 3.5-5.1 [facility] Protein [Mass/Vol] 7.0 g/dL 6.4-8.2 [facility] Sodium [Moles/Vol] 142 mmol/L 136-145 [facility] Basophil percentageOrdered B y: Janes Dennis on 06-02-2023 Cholesterol [Mass/Vol] 121 mg/dL <200 [facility] Comment on above: <200 mg/dL Desirable 200-240 mg/dL Borderline >240 mg/dL High Risk Triglyceride [Mass/Vol] 78 mg/dL <199 [facility] Comment on above: The drugs N-Acetylcy steine and Metamizole may falsely depress this assay.Serum Triglycerides Reference Interval Normal <150 mg/dL Borderline high 150 - 199 mg/dL High 200 - 499 mg/dL Very High > or = 500 mg/dL Direct bilirubinOrdered By: Janes Dennis on 06-02-2023 Bilirubin.direct [Mass/Vol] 0.21 mg/dL 0.00-0.30 [facility] - Chemistry and C hemistry - challengeOrdered By: Annmarie Huerta on 06-02-2023 ALP [Catalytic activity/Vol] 119 U/L 45-117 [facility] ALT [Catalytic activity/Vol] 45 U/L 16-61 [facility] CO2 [Moles/Vol] 31.0 mmol/L 21.0-32.0 [facility] Free T4 [Mass/Vol] 1.21 ng/dL 0.76-1.46 [facility] Globulin (S) [Mass/Vol] 3.7 g/dL 2.2-4.2 [facility] Urea nitrogen/Creatinine [Mass ratio] 11.1 mg/mg 10-20 [facility] No Panel InformationOrdered By: Annmarie Huerta on 06-02-2023 Estimated GFR (MDRD) Amer 95 mL/min >60 [facility] Comment on above: GFR Calc Estimated GFR (MDRD) Non-Af Amer 79 mL/min >60 [facility] Comment on above: Non- GFR Calc Free Triiodothyronine (T3) pg/dL 2.0 pg/mL 2.18-3.98 [facility] Thyroid Stimulating Hormone (TSH) 0.09 uIU/mL 0.358-3.74 [facility] Serum or plasma albumin gopal urement (mass/volume)Ordered By: Annmarie Huerta on 06-02-2023 Albumin [Mass/Vol] 3.3 g/dL 3.2-5.0 [facility] Serum or plasma albumin/glob ulin mass ratioOrdered By: Annmarie Huerta on 06-02-2023 Albumin/Globulin [Mass ratio] 0.9 {ratio} 0.9-2.4 [facility] Serum or plasma calcium gopal urement (mass/volume)Ordered By: Annmarie Huerta on 06-02-2023 Calcium [Mass/Vol] 8.8 mg/dL 8.5-10.1 [facility] Serum or plasma cholesterol in HDL measurement (mass/volume)Ordered By: Janes Dennis on 06-02-2023 Cholesterol in HDL [Mass/Vol] 55 mg/dL >40 [facility] Comment on above: The drugs N-Acetylcy steine and Metamizole may falsely depress this assay. Reference Range HDL <40 mg/dL Low HDL Cholesterol HDL >or= 60 mg/dL High HDL Cholesterol Serum or plasma cholesterol in VLDL measurement (mass/volume)Ordered By: Janes Dennis on 06-02-2023 Cholesterol in VLDL [Mass/Vol] 16 mg/dL 5-40 [facility] Serum or plasma creatinine m easurement (mass/volume)Ordered By: Annmarie Huerta on 06-02-2023 Creatinine [Mass/Vol] 0.99 mg/dL 0.70-1.30 [facility] Comment on above: The validity of the calculated GFR & GFRAA in patients over 70 years has not been determined. Clinical correlation is essential. Serum or plasma low density lipoprotein (LDL) cholesterol measurement (mass/volume)Ordered By: Janes Dennis on 06-02-2023 Cholesterol in LDL [Mass/Vol] 50 mg/dL 0-130 [facility] Serum or plasma urea nitroge n measurement (mass/volume)Ordered By: Annmarie Huerta on 06-02-2023 Urea nitrogen [Mass/Vol] 11 mg/dL 7-18 [facility] Thin prep Papanicolaou smear with manual screeningOrdered By: Annmarie Huerta on 06-02-2023 Thin prep Papanicolaou smear with manual screening 27 U/L 15-37 [facility] Thin prep Papanicolaou smear with manual screening 5 5-15 [facility] Basophil percentageOrdered B y: Janes Dennis on 02-23-2023 Bilirubin [Mass/Vol] 0.60 mg/dL 0.20-1.00 [facility] Comment on above: For patients on eltr ombopag therapy, use of Dimension [place] TBIL is not recommended. Cholesterol [Mass/Vol] 218 mg/dL <200 [facility] Comment on above: <200 mg/dL Desirable 200-240 mg/dL Borderline >240 mg/dL High Risk Protein [Mass/Vol] 7.3 g/dL 6.4-8.2 [facility] Triglyceride [Mass/Vol] 172 mg/dL <199 [facility] Comment on above: The drugs N-Acetylcy steine and Metamizole may falsely depress this assay.Serum Triglycerides Reference Interval Normal <150 mg/dL Borderline high 150 - 199 mg/dL High 200 - 499 mg/dL Very High > or = 500 mg/dL Direct bilirubinOrdered By: Janes Dennis on 02-23-2023 Bilirubin.direct [Mass/Vol] 0.14 mg/dL 0.00-0.30 [facility] Laboratory - Chemistry and C hemistry - challengeOrdered By: Janes Dennis on 02-23-2023 ALP [Catalytic activity/Vol] 95 U/L 45-117 [facility] ALT [Catalytic activity/Vol] 25 U/L 16-61 [facility] Globulin (S) [Mass/Vol] 3.8 g/dL 2.2-4.2 [facility] No Panel InformationOrdered By: Tee Ricardo on 02-23-2023 Thyroid Stimulating Hormone (TSH) 0.01 uIU/mL 0.358-3.74 [facility] Serum or plasma albumin gopal urement (mass/volume)Ordered By: Janes Dennis on 02-23-2023 Albumin [Mass/Vol] 3.5 g/dL 3.2-5.0 [facility] Serum or plasma cholesterol in HDL measurement (mass/volume)Ordered By: Janes Dennis on 02-23-2023 Cholesterol in HDL [Mass/Vol] 49 mg/dL >40 [facility] Comment on above: The drugs N-Acetylcy steine and Metamizole may falsely depress this assay. Reference Range HDL <40 mg/dL Low HDL Cholesterol HDL >or= 60 mg/dL High HDL Cholesterol Serum or plasma cholesterol in VLDL measurement (mass/volume)Ordered By: Janes Dennis on 02-23-2023 Cholesterol in VLDL [Mass/Vol] 34 mg/dL 5-40 [facility] Serum or plasma low density lipoprotein (LDL) cholesterol measurement (mass/volume)Ordered By: Janes Dennis on 02-23-2023 Cholesterol in LDL [Mass/Vol] 135 mg/dL 0-130 [facility] Thin prep Papanicolaou smear with manual screeningOrdered By: Janes Dennis on 02-23-2023 Thin prep Papanicolaou smear with manual screening 20 U/L 15-37 [facility] Absolute lymphocyte countOrd ered By: Dr. Ricardo on 01-10-2023 Lymphocytes Auto (Unsp spec) [#/Vol] 2.21 10*3/uL 0.83-4.51 [facility] Basophil percentageOrdered B y: Dr. Ricardo on 01-10-2023 Basophils/100 WBC (Bld) 0.6 % 0-1 [facility] Bilirubin [Mass/Vol] 0.40 mg/dL 0.20-1.00 [facility] Comment on above: For patients on eltr ombopag therapy, use of Dimension [place] TBIL is not recommended. Chloride [Moles/Vol] 105 mmol/L 98-107 [facility] Eosinophils/100 WBC (Bld) 6.0 % 0-5 [facility] Glucose [Mass/Vol] 94 mg/dL 74-106 [facility] Neutrophils (Bld) [#/Vol] 4.5 10*3/uL 2.0-7.7 [facility] Neutrophils/100 WBC (Bld) 55.2 % 47-70 [facility] Potassium [Moles/Vol] 3.8 mmol/L 3.5-5.1 [facility] Protein [Mass/Vol] 7.5 g/dL 6.4-8.2 [facility] Sodium [Moles/Vol] 139 mmol/L 136-145 [facility] WBC (Bld) [#/Vol] 8.1 10*3/uL 4.4-11.0 [facility] Blood erythrocytes count (nu mber/volume)Ordered By: Dr. Ricardo on 01-10-2023 RBC (Bld) [#/Vol] 4.76 10*6/uL 4.6-6.2 [facility] Blood hemoglobin measurement (mass/volume)Ordered By: Dr. Ricardo on 01-10-2023 Hemoglobin (Bld) [Mass/Vol] 14.9 g/dL 13.0-16.5 [facility] Blood lymphocytes/100 leukoc ytesOrdered By: Dr. Ricardo on 01-10-2023 Lymphocytes/100 WBC (Bld) 27.2 % 19-41 [facility] Blood monocytes/100 leukocyt esOrdered By: Dr. Ricardo on 01-10-2023 Monocytes/100 WBC (Bld) 10.6 % 0-10 [facility] Blood platelet mean volumeOr dered By: Dr. Rciardo on 01-10-2023 Platelet mean volume (Bld) [Entitic vol] 9.6 fL 6.2-12.0 [facility] Determination of erythrocyte mean corpuscular volume (MCV)Ordered By: Dr. Ricardo on 01-10-2023 MCV (RBC) [Entitic vol] 93.7 fL 80-94 [facility] Hematocrit Auto (Bld) [Volum e fraction]Ordered By: Dr. Ricardo on 01-10-2023 Hematocrit (Bld) [Volume fraction] 44.6 % 40-54 [facility] Laboratory - Chemistry and C hemistry - challengeOrdered By: Dr. Ricardo on 01-10-2023 ALP [Catalytic activity/Vol] 185 U/L 45-117 [facility] ALT [Catalytic activity/Vol] 38 U/L 16-61 [facility] CO2 [Moles/Vol] 27.0 mmol/L 21.0-32.0 [facility] Globulin (S) [Mass/Vol] 3.9 g/dL 2.2-4.2 [facility] Urea nitrogen/Creatinine [Mass ratio] 13.6 mg/mg 10-20 [facility] Laboratory - Hematology and Cell countsOrdered By: Dr. Ricardo on 01-10-2023 Erythrocyte distribution width (RBC) [Entitic vol] 44.2 fL 35.1-43.9 [facility] Erythrocyte distribution width (RBC) [Ratio] 12.7 % 11.6-14.6 [facility] Immature granulocytes/100 WBC (Bld) 0.400 % 0.0-0.9 [facility] Comment on above: IG% - Immature Granu locytes (promyelocytes, myelocytes and metamyelocytes) > 1% indicates that a LEFT SHIFT is Present. MCH (RBC) [Entitic mass] 31.3 pg 27.0-32.0 [facility] Nucleated RBC/100 WBC (Bld) [Ratio] 0 % 0-5 [facility] MCHC Auto (RBC) [Mass/Vol]Or dered By: Dr. Ricardo on 01-10-2023 MCHC (RBC) [Mass/Vol] 33.4 g/dL 32-36 [facility] No Panel InformationOrdered By: Dr. Ricardo on 01-10-2023 Estimated GFR (MDRD) Amer 91 mL/min >60 [facility] Comment on above: GFR Calc Estimated GFR (MDRD) Non-Af Amer 76 mL/min >60 [facility] Comment on above: Non- GFR Calc Hepatitis C Antibody Non-Reactive Nonreactive [facility] Comment on above: Non Reactive: < 0.8 Equivocal: >/= 0.8 to < 1.0 Reactive: >/= 1.0The CDC recommends that a reactive/equivocal HCV antibody result be followed up by the HCV Nucleic Acid Amplificationtest (103548) Prostate Specific Antigen Screen 1.45 ng/mL 0.00-4.00 [facility] Comment on above: This test was perfor med using the TPSA assay method for the[employer] chemistry system. Values obtained with differentassay methods cannot be used interchangably.When changing PSA assays in the course of monitoring apatient, additional sequential testing should be carriedout to confirm baseline values. Thyroid Stimulating Hormone (TSH) 0.01 uIU/mL 0.358-3.74 [facility] Platelets bldOrdered By: Dr. Ricardo on 01-10-2023 Platelets (Bld) [#/Vol] 285 10*3/uL 150-450 [facility] Serum or plasma albumin gopal urement (mass/volume)Ordered By: Dr. Ricardo on 01-10-2023 Albumin [Mass/Vol] 3.6 g/dL 3.2-5.0 [facility] Serum or plasma albumin/glob ulin mass ratioOrdered By: Dr. Ricardo on 01-10-2023 Albumin/Globulin [Mass ratio] 0.9 {ratio} 0.9-2.4 [facility] Serum or plasma calcium gopal urement (mass/volume)Ordered By: Dr. Ricardo on 01-10-2023 Calcium [Mass/Vol] 9.2 mg/dL 8.5-10.1 [facility] Serum or plasma creatinine m easurement (mass/volume)Ordered By: Dr. Ricardo on 01-10-2023 Creatinine [Mass/Vol] 1.03 mg/dL 0.70-1.30 [facility] Comment on above: The validity of the calculated GFR & GFRAA in patients over 70 years has not been determined. Clinical correlation is essential. Serum or plasma urea nitroge n measurement (mass/volume)Ordered By: Dr. Ricardo on 01-10-2023 Urea nitrogen [Mass/Vol] 14 mg/dL 7-18 [facility] Thin prep Papanicolaou smear with manual screeningOrdered By: Dr. Ricardo on 01-10-2023 Thin prep Papanicolaou smear with manual screening 22 U/L 15-37 [facility] Thin prep Papanicolaou smear with manual screening 7 5-15 [facility] Basophil percentageOrdered B y: Annmarie Huerta on 01-02-2023 Bilirubin [Mass/Vol] 0.50 mg/dL 0.20-1.00 [facility] Comment on above: For patients on eltr ombopag therapy, use of Dimension [place] TBIL is not recommended. Chloride [Moles/Vol] 106 mmol/L 98-107 [facility] Cholesterol [Mass/Vol] 113 mg/dL <200 [facility] Comment on above: <200 mg/dL Desirable 200-240 mg/dL Borderline >240 mg/dL High Risk Glucose [Mass/Vol] 87 mg/dL 74-106 [facility] Potassium [Moles/Vol] 4.1 mmol/L 3.5-5.1 [facility] Protein [Mass/Vol] 7.6 g/dL 6.4-8.2 [facility] Sodium [Moles/Vol] 139 mmol/L 136-145 [facility] Triglyceride [Mass/Vol] 126 mg/dL <199 [facility] Comment on above: The drugs N-Acetylcy steine and Metamizole may falsely depress this assay.Serum Triglycerides Reference Interval Normal <150 mg/dL Borderline high 150 - 199 mg/dL High 200 - 499 mg/dL Very High > or = 500 mg/dL Laboratory - Chemistry and C hemistry - challengeOrdered By: Annmarie Huerta on 01-02-2023 ALP [Catalytic activity/Vol] 247 U/L 45-117 [facility] ALT [Catalytic activity/Vol] 57 U/L 16-61 [facility] CO2 [Moles/Vol] 26.0 mmol/L 21.0-32.0 [facility] Globulin (S) [Mass/Vol] 4.0 g/dL 2.2-4.2 [facility] Urea nitrogen/Creatinine [Mass ratio] 13.3 mg/mg 10-20 [facility] No Panel InformationOrdered By: Annmarie Huerta on 01-02-2023 Estimated GFR (MDRD) Amer 97 mL/min >60 [facility] Comment on above: GFR Calc Estimated GFR (MDRD) Non-Af Amer 80 mL/min >60 [facility] Comment on above: Non- GFR Calc Serum or plasma albumin gopal urement (mass/volume)Ordered By: Annmarie Huerta on 01-02-2023 Albumin [Mass/Vol] 3.6 g/dL 3.2-5.0 [facility] Serum or plasma albumin/glob ulin mass ratioOrdered By: Annmarie Huerta on 01-02-2023 Albumin/Globulin [Mass ratio] 0.9 {ratio} 0.9-2.4 [facility] Serum or plasma calcium gopal urement (mass/volume)Ordered By: Annmarie Huerta on 01-02-2023 Calcium [Mass/Vol] 9.1 mg/dL 8.5-10.1 [facility] Serum or plasma cholesterol in HDL measurement (mass/volume)Ordered By: Annmarie Huerta on 01-02-2023 Cholesterol in HDL [Mass/Vol] 48 mg/dL >40 [facility] Comment on above: The drugs N-Acetylcy steine and Metamizole may falsely depress this assay. Reference Range HDL <40 mg/dL Low HDL Cholesterol HDL >or= 60 mg/dL High HDL Cholesterol Serum or plasma cholesterol in VLDL measurement (mass/volume)Ordered By: Annmarie Huerta on 01-02-2023 Cholesterol in VLDL [Mass/Vol] 25 mg/dL 5-40 [facility] Serum or plasma creatinine m easurement (mass/volume)Ordered By: Annmarie Huerta on 01-02-2023 Creatinine [Mass/Vol] 0.98 mg/dL 0.70-1.30 [facility] Comment on above: The validity of the calculated GFR & GFRAA in patients over 70 years has not been determined. Clinical correlation is essential. Serum or plasma low density lipoprotein (LDL) cholesterol measurement (mass/volume)Ordered By: Annmarie Huerta on 01-02-2023 Cholesterol in LDL [Mass/Vol] 40 mg/dL 0-130 [facility] Serum or plasma urea nitroge n measurement (mass/volume)Ordered By: Annmarie Huerta on 01-02-2023 Urea nitrogen [Mass/Vol] 13 mg/dL 7-18 [facility] Thin prep Papanicolaou smear with manual screeningOrdered By: Annmarie Huerta on 01-02-2023 Thin prep Papanicolaou smear with manual screening 33 U/L 15-37 [facility] Thin prep Papanicolaou smear with manual screening 7 5-15 [facility] Basophil percentageon 2021 Bilirubin [Mass/Vol] 0.80 mg/dL 0.20-1.00 [facility] Work Phone: Comment on above: For patients on eltr ombopag therapy, use of Dimension [place] TBIL is not recommended. Cholesterol [Mass/Vol] 112 mg/dL <200 [facility] Work Phone: Comment on above: <200 mg/dL Desirable 200-240 mg/dL Borderline >240 mg/dL High Risk Protein [Mass/Vol] 7.3 g/dL 6.4-8.2 [facility] Work Phone: Triglyceride [Mass/Vol] 60 mg/dL <199 [facility] Work Phone: Comment on above: The drugs N-Acetylcy steine and Metamizole may falsely depress this assay.Serum Triglycerides Reference Interval Normal <150 mg/dL Borderline high 150 - 199 mg/dL High 200 - 499 mg/dL Very High > or = 500 mg/dL Direct bilirubinon Bilirubin.direct [Mass/Vol] 0.21 mg/dL 0.00-0.30 [facility] Work Phone: Laboratory - Chemistry and C hemistry - challengeon 07-08-2022 ALP [Catalytic activity/Vol] 91 U/L 45-117 [facility] Work Phone: ALT [Catalytic activity/Vol] 25 U/L 16- [facility] Work Phone: Globulin (S) [Mass/Vol] 3.7 g/dL 2.2-4.2 [facility] Work Phone: Serum or plasma albumin gopal urement (mass/volume)on 07-08-2022 Albumin [Mass/Vol] 3.6 g/dL 3.2-5.0 [facility] Work Phone: Serum or plasma cholesterol in HDL measurement (mass/volume)on 07-08-2022 Cholesterol in HDL [Mass/Vol] 48 mg/dL >40 [facility] Work Phone: Comment on above: The drugs N-Acetylcy steine and Metamizole may falsely depress this assay. Reference Range HDL <40 mg/dL Low HDL Cholesterol HDL >or= 60 mg/dL High HDL Cholesterol Serum or plasma cholesterol in VLDL measurement (mass/volume)on 07-08-2022 Cholesterol in VLDL [Mass/Vol] 12 mg/dL 5-40 [facility] Work Phone: Serum or plasma low density lipoprotein (LDL) cholesterol measurement (mass/volume)on 07-08-2022 Cholesterol in LDL [Mass/Vol] 52 mg/dL 0-130 [facility] Work Phone: Thin prep Papanicolaou smear with manual screeningon 07-08-2022 Thin prep Papanicolaou smear with manual screening 13 U/L 15-37 [facility] Work Phone: INHOUSE COVID 19 (ONLY) RAPI D ([id number])Ordered By: Shavonne Galloway on 05-23-2022 INHOUSE COVID 19 (ONLY) RAPID ([id number]) Positive [facility] Work Phone: Inhouse FLU A+B DIRECT AG, ( RAPID) ([id number])Ordered By: Shavonne Galloway on 05-23-2022 FLUAV+FLUBV Ag Ql (Unsp spec) Negative Normal [facility]; [facility] Work Phone: T3, FREE (TRIDOTHYRONINE) ([phone])Ordered By: Hair Colorist on 05-17-2022 Free T3 [Mass/Vol] 2.9 pg/mL Normal 2.0-4.4 [facility]; [facility] Work Phone: T4, FREE (THYROXINE) ([id number]) Ordered By: Hair Colorist on 05-17-2022 Free T4 [Mass/Vol] 1.45 ng/dL Normal 0.82-1.77 [facility]; [facility] Work Phone: TSH ([id number])Ordered By: Syste m Diesel Motor Mechanic on 05-17-2022 TSH Qn 2.760 {uIU/mL} Normal 0.450-4.500 [facility]; [facility] Work Phone: CATECHOLAMINES TOTAL, URINE ([id number])Ordered By: Hair Colorist on 03-04-2022 DOPamine (24H U) [Mass/Time] 127 {ug/24_hr} Normal 0-510 [facility]; [facility] Work Phone: Comment on above: Test(s) 388648-Qtmta phrine, Urine; 197405-Pmvwtubuzqfbrs, Ur; 996138-Rqhduglc, Urine; 203653-Veabpbxussremze, Ur; 049763-Kkyzqymmqlvb, Ur;583848-QHQ, Urinewas developed and its performance characteristics determinedby [facility]. It has not been cleared or approved by the Foodand Drug Administration.PERFORMED BY: [employer] [id number] DOPamine (U) [Mass/Vol] 106 ug/L Normal [facility]; [facility] Work Phone: Comment on above: Test(s) 756182-Rhcte phrine, Urine; 896619-Xgecuknuymumqh, Ur; 875723-Jhxmzozw, Urine; 486259-Tchjfoczukygkbf, Ur; 519402-Xbclduvxlxxe, Ur;140246-VHC, Urinewas developed and its performance characteristics determinedby [facility]. It has not been cleared or approved by the Foodand Drug Administration.PERFORMED BY: [address] [id number] EPINEPHrine (24H U) [Mass/Time] 6 {ug/24_hr} Normal 0-20 [facility]; [facility] Work Phone: Comment on above: Test(s) 940962-Aakcr phrine, Urine; 703442-Pvakhsosfkquiy, Ur; 971800-Tgqspnby, Urine; 076399-Dwgzxgrnbyftsvv, Ur; 998457-Wlechlnvgidb, Ur;756793-KWZ, Urinewas developed and its performance characteristics determinedby [facility]. It has not been cleared or approved by the Foodand Drug Administration.PERFORMED BY: [address] [id number] EPINEPHrine (U) [Mass/Vol] 5 ug/L Normal [facility]; [facility] Work Phone: Comment on above: Test(s) 253681-Qazqt phrine, Urine; 853758-Ovmbeqqlkpoaat, Ur; 978561-Olxqwmuo, Urine; 106063-Ntzdaztsrsmijxd, Ur; 849566-Doeatrijwxqy, Ur;573459-CEH, Urinewas developed and its performance characteristics determinedby [facility]. It has not been cleared or approved by the Foodand Drug Administration.PERFORMED BY: [employer] [address] [id number] Norepinephrine (24H U) [Mass/Time] 29 {ug/24_hr} Normal 0-135 [facility]; [facility] Work Phone: Comment on above: Test(s) 709379-Exyfb phrine, Urine; 233895-Tqaritzqbagvqt, Ur; 749485-Qsxszxav, Urine; 130152-Rkntcwrigakuisx, Ur; 297864-Hzkoefivkgat, Ur;054494-LAS, Urinewas developed and its performance characteristics determinedby [facility]. It has not been cleared or approved by the Foodand Drug Administration.PERFORMED BY: [employer] [address] [id number] Norepinephrine (U) [Mass/Vol] 24 ug/L Normal [facility]; [facility] Work Phone: Comment on above: Test(s) 403919-Xhron phrine, Urine; 567556-Dclykqjjpgraqy, Ur; 443073-Tvnmfghj, Urine; 717445-Sdeugxvgtxmrxlg, Ur; 937925-Zebfnhfswhrb, Ur;531979-KXL, Urinewas developed and its performance characteristics determinedby [facility]. It has not been cleared or approved by the Foodand Drug Administration.PERFORMED BY: [employer] [address] [id number] METANEPHRINES - URINE ([id number] )Ordered By: Hair Colorist on 03-04-2022 Metanephrine (24H U) [Mass/Time] 74 {ug/24_hr} Normal 58-276 [facility]; [facility] Work Phone: Comment on above: Test(s) 607094-Vxdoi phrine, Urine; 724323-Qdtorncflhtozy, Ur; 815300-Jcgckeav, Urine; 690172-Vlktkuclaeblcgq, Ur; 554648-Iucdsbhbvpnw, Ur;379605-SNM, Urinewas developed and its performance characteristics determinedby [employer]. It has not been cleared or approved by the Foodand Drug Administration.PERFORMED BY: [employer] [address] [id number] Metanephrines (24H U) [Mass/Vol] 62 ug/L Normal [facility]; [facility] Work Phone: Comment on above: Test(s) 979786-Ykzak phrine, Urine; 160127-Rjnakxbvgxjhfy, Ur; 576009-Ftjtpthu, Urine; 582524-Yxwowllwpphyygz, Ur; 818580-Knfjblnokndf, Ur;952290-NXG, Urinewas developed and its performance characteristics determinedby [facility]. It has not been cleared or approved by the Foodand Drug Administration.PERFORMED BY: [employer] [address] [id number] Normetanephrine (24H U) [Mass/Time] 182 {ug/24_hr} Normal 156-729 [facility]; [facility] Work Phone: Comment on above: Test(s) 811083-Bgmsh phrine, Urine; 766449-Xrrxbvjuwerxwx, Ur; 288385-Htossztx, Urine; 203862-Xiqifynuooidzut, Ur; 120882-Ljodnqikvlja, Ur;641703-YML, Urinewas developed and its performance characteristics determinedby [facility]. It has not been cleared or approved by the Foodand Drug Administration.PERFORMED BY: [employer] [address] [id number] Normetanephrine (24H U) [Mass/Vol] 152 ug/L Normal [facility]; [facility] Work Phone: Comment on above: Test(s) 122967-Rfvkb phrine, Urine; 047567-Sjgmuqijeulvoc, Ur; 610788-Ahtmjwuq, Urine; 436174-Pcegbizjfumidic, Ur; 447488-Fbdvhwjlxblp, Ur;703554-ZSH, Urinewas developed and its performance characteristics determinedby [facility]. It has not been cleared or approved by the Foodand Drug Administration.PERFORMED BY: [employer] [address] [id number] URINE VMA ([id number])Ordered By: Hair Colorist on 03-04-2022 Vanillylmandelate (24H U) [Mass/Time] 2.0 {mg/24_hr} Normal 0.0-7.5 [facility]; [facility] Work Phone: Comment on above: Test(s) 733030-Ewrpy phrine, Urine; 295133-Nqfhhehptjimlx, Ur; 180305-Rvofiags, Urine; 237199-Bmmdzukveixwzbw, Ur; 459932-Dajtxpczgolb, Ur;285929-MWW, Urinewas developed and its performance characteristics determinedby [employer]. It has not been cleared or approved by the Foodand Drug Administration.PERFORMED BY: [employer] [address] [id number] Vanillylmandelate (U) [Mass/Vol] 1.7 mg/L Normal [facility]; [facility] Work Phone: Comment on above: Test(s) 341093-Qbfxa phrine, Urine; 565002-Geszimhulshtcs, Ur; 155083-Yinlzxuq, Urine; 836812-Ynmsvzfptqadopn, Ur; 419197-Xsaujxnfdjsj, Ur;532560-SJL, Urinewas developed and its performance characteristics determinedby [employer]. It has not been cleared or approved by the Foodand Drug Administration.PERFORMED BY: [employer] [address] [id number] FREE TRIIDOTHYRONINE (T3) (8 0150)Ordered By: Hair Colorist on 02-03-2022 Free T3 [Mass/Vol] 3.4 pg/mL Normal 2.0-4.4 [facility]; [facility] Work Phone: Comment on above: PATIENT WAS FASTINGP ERFORMED BY: [id number] [facility]At[facility] [id number] LIPID PANEL ([id number])Ordered B y: Hair Colorist on 02-03-2022 Cholesterol [Mass/Vol] 133 mg/dL Normal 100-199 [facility]; [facility] Work Phone: Comment on above: PATIENT WAS FASTINGP ERFORMED BY: [id number] [facility]rem[facility] TechnologySelect [facility] [id number] Cholesterol in HDL [Mass/Vol] 50 mg/dL Normal [facility]; [facility] Work Phone: Comment on above: PATIENT WAS FASTINGP ERFORMED BY: JERI [facility] [id number] Roadblin [place] [id number] Triglyceride [Mass/Vol] 62 mg/dL Normal 0-149 [facility]; [facility] Work Phone: Comment on above: PATIENT WAS FASTINGP ERFORMED BY: JERI [facility] [id number] Cramer RoadDublin [place] [id number] LIPID PANEL (02823) 13 mg/dL Normal 5-40 [facility]; [facility] Work Phone: Comment on above: PATIENT WAS FASTINGP ERFORMED BY: JERI [facility] [id number] Cramer RoadDublin [place] [id number] LIPID PANEL (34364) 70 mg/dL Normal 0-99 [facility]; [facility] Work Phone: Comment on above: PATIENT WAS FASTINGP ERFORMED BY: JERI [facility] [id number] [facility] [place] [id number] LIPID PANEL (18044) 1.4 {ratio} Normal 0.0-3.6 [facility]; [facility] Work Phone: Comment on above: LDL/HDL Ratio Men Wo men 1/2 Avg.Risk 1.0 1.5 Avg.Risk 3.6 3.2 2X Avg.Risk 6.2 5.0 3X Avg.Risk 8.0 6.1 PATIENT WAS FASTINGP ERFORMED BY: JERI [facility] [id number] [facility] [place] [id number] METABOLIC PANEL, COMPREHENSI VE (18385)Ordered By: Hair Colorist on 02-03-2022 Albumin [Mass/Vol] 4.5 g/dL Normal 3.8-4.8 [facility]; [facility] Work Phone: Comment on above: PATIENT WAS FASTINGP ERFORMED BY: JERI [facility] [id number] [facility] ServicesDublin [place] [id number] Albumin/Globulin [Mass ratio] 1.9 {ratio} Normal 1.2-2.2 [facility]; [facility] Work Phone: Comment on above: PATIENT WAS FASTINGP ERFORMED BY: JERI [facility] Ihtqxg2863 Cramer RoadDublin [place] [id number] ALP [Catalytic activity/Vol] 82 U/L Normal 44-121 [facility]; [facility] Work Phone: Comment on above: PATIENT WAS FASTINGP ERFORMED BY: CB [facility] Cnbomo3389 [address] RoadDublin [place] [id number] ALT [Catalytic activity/Vol] 13 U/L Normal 0-44 [facility]; [facility] Work Phone: Comment on above: PATIENT WAS FASTINGP ERFORMED BY: CB [facility] Kpbztr5292 C[address] RoadDublin [place] [id number] AST [Catalytic activity/Vol] 18 U/L Normal 0-40 [facility]; [facility] Work Phone: Comment on above: PATIENT WAS FASTINGP ERFORMED BY: [facility] Eqbwyx0976 [address] RoadDublin [place] [id number] Bilirubin [Mass/Vol] 0.6 mg/dL Normal 0.0-1.2 Comp rehensive [facility] Medicine; [facility] Work Phone: Comment on above: PATIENT WAS FASTINGP ERFORMED BY: [facility] Waxrsu1609 [address] RoadDublin [place] [id number] Calcium [Mass/Vol] 9.6 mg/dL Normal 8.6-10.2 [facility]; [facility] Work Phone: Comment on above: PATIENT WAS FASTINGP ERFORMED BY: [facility] Lsfxxs5788 [address] RoadDublin [place] [id number] Chloride [Moles/Vol] 103 mmol/L Normal 96-106 Comp rehensive [facility]; [facility] Work Phone: Comment on above: PATIENT WAS FASTINGP ERFORMED BY: CB [facility] Wmuepr3060 [address] RoadDublin [place] [id number] CO2 [Moles/Vol] 24 mmol/L Normal 20-29 Comprehen [facility]; [facility] Work Phone: Comment on above: PATIENT WAS FASTINGP ERFORMED BY: JERI [facility] Vjenxa4272 [address] RoadDublin [place] [id number] Creatinine [Mass/Vol] 1.04 mg/dL Normal 0.76-1.27 [facility] prehensive Internal Medicine; [facility] Work Phone: Comment on above: PATIENT WAS FASTINGP ERFORMED BY: [facility] Jqhcqo0154 [address] RoadDublin [place] [id number] GFR/1.73 sq M.predicted among non-blacks MDRD (S/P/Bld) [Vol rate/Area] 77 mL/min/{1.73_m2} Normal Comprehensiv e [facility] Medicine; [facility] Work Phone: Comment on above: PATIENT WAS FASTINGP ERFORMED BY: JERI [facility] Jckpgl4636 [address] RoadDublin [place] [id number] Globulin (S) [Mass/Vol] 2.4 g/dL Normal 1.5-4.5 [facility]; [facility] Work Phone: Comment on above: PATIENT WAS FASTINGP ERFORMED BY: [facility] Pujfhi4710 [address] RoadDublin [place] [id number] Glucose [Mass/Vol] 95 mg/dL Normal 65-99 [facility]; [facility] Work Phone: Comment on above: PATIENT WAS FASTINGP ERFORMED BY: [facility] Loyfsd1738 [address] RoadDublin [place] [id number] Potassium [Moles/Vol] 4.6 mmol/L Normal 3.5-5.2 [facility] prehensive Internal Medicine; [facility] Work Phone: Comment on above: PATIENT WAS FASTINGP ERFORMED BY: CB [facility] Htczwl4099 [address] RoadDublin [place] [id number] Protein [Mass/Vol] 6.9 g/dL Normal 6.0-8.5 [facility]; [facility] Work Phone: Comment on above: PATIENT WAS FASTINGP ERFORMED BY: [facility] Hqnxkp4000 [address] RoadDublin [place] [id number] Sodium [Moles/Vol] 142 mmol/L Normal 134-144 Compre [facility] Internal Medicine; [facility] Work Phone: Comment on above: PATIENT WAS FASTINGP ERFORMED BY: JERI Labsourav DavisDkxmmn3272 Cramer RoadDublin [place] [id number] Urea nitrogen [Mass/Vol] 12 mg/dL Normal 8-27 [facility]; [facility] Work Phone: Comment on above: PATIENT WAS FASTINGP ERFORMED BY: JERI [facility] Stzlkh8308 C[address] Roadblin [place] [id number] Urea nitrogen/Creatinine [Mass ratio] 12 mg/mg Normal 10-24 [facility]; [facility] Work Phone: Comment on above: PATIENT WAS FASTINGP ERFORMED BY: JERI Davislin[address] [facility] [id number] METABOLIC PANEL, COMPREHENSIVE (64736) 77 mL/min/1.73 Normal Comprehens deny Internal Medicine; [facility] Work Phone: MICROALB;CREAT RATION, RAND UR (30918)Ordered By: Hair Colorist on 02-03-2022 Albumin DL <= 20 mg/L (U) [Mass/Vol] mg/dL Normal [facility]; [facility] Work Phone: Comment on above: PATIENT WAS FASTINGP ERFORMED BY: JERI Labsourav DavisBowsrh[address] [facility] [id number] Albumin/Creatinine (U) [Mass ratio] <4 Normal 0-29 [facility]; [facility] Work Phone: Comment on above: Normal: 0 - 29 Moder ately increased: 30 - 300 Severely increased: >300 PATIENT WAS FASTINGP ERFORMED BY: JERI [facility] Jzevan0502 C[address] Roadblin [place] [id number] Creatinine (U) [Mass/Vol] 81.5 mg/dL Normal [facility]; [facility] Work Phone: Comment on above: PATIENT WAS FASTINGP ERFORMED BY: JERI [facility] Stohqy[address] [facility] [id number] PSA (Medicare - [id number]) (8415 3)Ordered By: Hair Colorist on 02-03-2022 Prostate specific Ag [Mass/Vol] 1.1 ng/mL Normal 0.0-4.0 [facility]; [facility] Work Phone: Comment on above: Horace ECLIA methodol ogy. .According to the [employer] [employer], Serum PSA shoulddecrease and remain at undetectable levels after radicalprostatectomy. The AUA defines biochemical recurrence as an initialPSA value 0.2 ng/mL or greater followed by a subsequent confirmatoryPSA value 0.2 ng/mL or greater.Values obtained with different assay methods or kits cannot be usedinterchangeably. Results cannot be interpreted as absolute evidenceof the presence or absence of malignant disease. PATIENT WAS FASTINGP ERFORMED BY: Sweeten6370 CramerSaint [facility] [id number] T4, FREE (THYROXINE) (75035) Ordered By: Hair Colorist on 02-03-2022 Free T4 [Mass/Vol] 1.21 ng/dL Normal 0.82-1.77 Compre [facility] Internal Medicine; [facility] Work Phone: Comment on above: PATIENT WAS FASTINGP ERFORMED BY: Sweeten[address] [facility] [place] [id number] TSH (THYROID STIMULATING HOR BRITTNEY) (84199)Ordered By: Hair Colorist on 02-03-2022 TSH Qn 9.620 {uIU/mL} Abnormal 0.450-4.500 Comprehen sive Internal Medicine; [facility] Work Phone: Comment on above: PATIENT WAS FASTINGP ERFORMED BY: [employer] LabWorldratrp Rdxras[address] [facility] [place] [id number] URINALYSIS W MICROSCOPY (810 00)Ordered By: Hair Colorist on 02-03-2022 Appearance (U) Clear Normal Comprehens deny Internal Medicine; [facility] Work Phone: Comment on above: PATIENT WAS FASTINGP ERFORMED BY: [employer] LabWorldratrp Fjxsoo[address] [facility]in [place] [id number] Bilirubin Ql (U) Negative Normal Comprehe nsive Internal Medicine; [facility] Work Phone: Comment on above: PATIENT WAS FASTINGP ERFORMED BY: JERI Davislin6[address] RoadDublin [place] [id number] Color (U) Yellow Normal [facility]; [facility] Work Phone: Comment on above: PATIENT WAS FASTINGP ERFORMED BY: JERI Velásquez6370 [address] RoadDublin [place] [id number] Glucose Ql (U) Negative Normal Comprehens deny Internal Medicine; [facility] Work Phone: Comment on above: PATIENT WAS FASTINGP ERFORMED BY: JERI Velásquez6370 [address] Roadblin [place] [id number] Hemoglobin Ql (U) Negative Normal Compreh ensive Internal Medicine; [facility] Work Phone: Comment on above: PATIENT WAS FASTINGP ERFORMED BY: JERI Velásquez6370 [address] RoadWilson Medical Centerin [place] [id number] Ketones Ql (U) Negative Normal Comprehens deny Internal Medicine; [facility] Work Phone: Comment on above: PATIENT WAS FASTINGP ERFORMED BY: JERI Davislin[address] [facility] [place] [id number] Leukocyte esterase Test strip Ql (U) Negative Normal [facility]; [facility] Work Phone: Comment on above: PATIENT WAS FASTINGP ERFORMED BY: JERI Davislin[address] [facility]in [place] [id number] Microscopic observation LM Nom (Urine sed) MICNIP Normal [facility]; [facility] Work Phone: Comment on above: Microscopic not alexandre cated and not performed. PATIENT WAS FASTINGP ERFORMED BY: JERI Davislin6370 [address] RoadDublin [place] [id number] Nitrite Ql (U) Negative Normal Comprehens deny Internal Medicine; [facility] Work Phone: Comment on above: PATIENT WAS FASTINGP ERFORMED BY: JERI Davislin6[address]Dublin [place] [id number] pH (U) 7.5 [pH] Normal 5.0-7.5 [facility]; [facility] Work Phone: Comment on above: PATIENT WAS FASTINGP ERFORMED BY: [facility]6370 [facility] [id number] Protein Ql (U) Negative Normal Comprehens deny Internal Medicine; [facility] Work Phone: Comment on above: PATIENT WAS FASTINGP ERFORMED BY: [facility]6370 [facility] [id number] Specific gravity (U) [Rel density] 1.017 1 Normal 1.005-1.030 [facility]; [facility] Work Phone: Comment on above: PATIENT WAS FASTINGP ERFORMED BY: [facility]6370 [facility] [id number] Urobilinogen (U) [Mass/Vol] 0.2 mg/dL Normal 0.2-1.0 [facility]; [facility] Work Phone: Comment on above: PATIENT WAS FASTINGP ERFORMED BY: [facility]6370 [facility] [id number] 2019 Novel Coronavirus (COVI D-19), DIANE (21277)Ordered By: Hair Colorist on 07-09-20202018 Novel Coronavirus (COVID-19), DIANE (35268) Not Detected Normal [facility]; [facility] Work Phone: Comment on above: This nucleic acid am plification test was developed and its performancecharacteristics determined by [employer]. Nucleic acidamplification tests include PCR and TMA. This test has not been FDAcleared or approved. This test has been authorized by FDA under anEmergency Use Authorization (EUA). This test is only authorized forthe duration of time the declaration that circumstances existjustifying the authorization of the emergency use of in vitrodiagnostic tests for detection of SARS-CoV-2 virus and/or diagnosisof COVID-19 infection under section 564(b)(1) of the Act, 21 U.S.C.360bbb-3(b) (1), unless the authorization is terminated or revokedsooner.When diagnostic testing is negative, the possibility of a falsenegative result should be considered in the context of a patient'srecent exposures and the presence of clinical signs and symptomsconsistent with COVID-19. An individual without symptoms of COVID-19and who is not shedding SARS-CoV-2 virus would expect to have anegative (not detected) result in this assay. PATIENT NOT FASTINGP ERFORMED BY: JERI MoodswingCibola General HospitalJqvjll9612 [facility] [id number] 2018 Novel Coronavirus (COVID-19), DIANE ([id number]) Not detected Normal [facility]; [facility] Work Phone: Comment on above: This nucleic acid am plification test was developed and its performancecharacteristics determined by [employer]. Nucleic acidamplification tests include PCR and TMA. This test has not been FDAcleared or approved. This test has been authorized by FDA under anEmergency Use Authorization (EUA). This test is only authorized forthe duration of time the declaration that circumstances existjustifying the authorization of the emergency use of in vitrodiagnostic tests for detection of SARS-CoV-2 virus and/or diagnosisof COVID-19 infection under section 564(b)(1) of the Act, 21 U.S.C.360bbb-3(b) (1), unless the authorization is terminated or revokedsooner.When diagnostic testing is negative, the possibility of a falsenegative result should be considered in the context of a patient'srecent exposures and the presence of clinical signs and symptomsconsistent with COVID-19. An individual without symptoms of COVID-19and who is not shedding SARS-CoV-2 virus would expect to have anegative (not detected) result in this assay. PATIENT NOT FASTINGP ERFORMED BY: [facility] ConciergeOzarks Community HospitalSwqabf1343 [facility] [id number] T3, FREE (TRIDOTHYRONINE) (7 6089)Ordered By: Hair Colorist on 07-12-2019 Free T3 [Mass/Vol] 3.1 pg/mL Normal 2.0-4.4 [facility] Internal Medicine Work Phone: Comment on above: PATIENT NOT FASTINGP ERFORMED BY: [facility]6370 [facility] [id number] T4, FREE (THYROXINE) (19537) Ordered By: Hair Colorist on 07-12-2019 Free T4 [Mass/Vol] 1.37 ng/dL Normal 0.82-1.77 [facility] Internal Medicine Work Phone: Comment on above: PATIENT NOT FASTINGP ERFORMED BY: [facility] [place] [address] [id number] TSH (THYROID STIMULATING HOR BRITTNEY) (42595)Ordered By: Hair Colorist on 07-12-2019 TSH Qn 9.720 {uIU/mL} Abnormal 0.450-4.500 [facility] Internal Medicine Work Phone: Comment on above: PATIENT NOT FASTINGP ERFORMED BY: [facility] [place] [address] [id number] CBC W/AUTO DIFF WBC (68156)O rdered By: Hair Colorist on 06-13-2019 Basophils (Bld) [#/Vol] 0.0 {x10E3/uL} Normal 0.0-0.2 [facility] Internal Medicine Work Phone: Comment on above: Test(s) 956268-GDW-E ; 839733-NIW-A; 085329-QKR-S; 580179-Czvalcwycqlwi; 543962-Bjwtmmtkthi, Total; 866675-TSG-S (Total);284965-Czfmo LDL-P; 807996-PXH Size; 898835-WT-AO Scorewas developed and its performance characteristics determinedby [facility] ConciergeCapital Region Medical Center. It has not been cleared or approved by the Foodand Drug Administration.PATIENT WAS FASTINGPERFORMED BY: [address] [id number] BY: [facility]6370 [facility] [id number] Basophils (Bld) [#/Vol] 0.0 10*3/uL Normal 0.0-0.2 [facility] Work Phone: Comment on above: Test(s) 308551-DSN-F ; 839915-FPQ-K; 674457-QNP-G; 337460-Ztfbswmvnrfpo; 049447-Iaykcrfenuq, Total; 707222-VWN-I (Total);164983-Acbej LDL-P; 108898-XVK Size; 695477-GX-WA Scorewas developed and its performance characteristics determinedby [employer]. It has not been cleared or approved by the Foodand Drug Administration.PATIENT WAS FASTINGPERFORMED BY: [employer] [address] [id number] BY: i.am.plus electronicsSelect Specialty Hospital [facility] [id number] Basophils/100 WBC (Bld) 0 % Normal [facility] Work Phone: Comment on above: Test(s) 558363-QBA-F ; 008567-KES-W; 547708-RHD-R; 326920-Qqajtkflplrgv; 457539-Uspdnnzpwrw, Total; 967180-DWO-V (Total);538336-Yumwd LDL-P; 702713-HOL Size; 197849-EM-OV Scorewas developed and its performance characteristics determinedby [employer]. It has not been cleared or approved by the Foodand Drug Administration.PATIENT WAS FASTINGPERFORMED BY: [employer] [address] [id number] BY: [employer]6370 CramerSaint [facility] Health System [id number] Eosinophils (Bld) [#/Vol] 0.4 {x10E3/uL} Normal 0.0-0.4 [facility] Work Phone: Comment on above: Test(s) 905281-NAY-A ; 009227-FYJ-K; 203684-IZF-G; 755041-Sjtgogrebdijh; 011319-Mcakehvgkcx, Total; 234845-RZL-I (Total);046119-Qgkuh LDL-P; 167304-PME Size; 468445-XJ-AC Scorewas developed and its performance characteristics determinedby [employer]. It has not been cleared or approved by the Foodand Drug Administration.PATIENT WAS FASTINGPERFORMED BY: [employer] [address] [id number] BY: [facility] TexxiAtrium Health Huntersville [id number] Eosinophils (Bld) [#/Vol] 0.4 10*3/uL Normal 0.0-0.4 [facility] Work Phone: Comment on above: Test(s) 270064-GQT-M ; 543598-YNY-E; 792350-OVB-W; 975948-Cpscnrmxilacr; 149171-Nkizythycpn, Total; 904059-VRU-K (Total);413452-Cesqv LDL-P; 918263-EYL Size; 358750-IC-ZH Scorewas developed and its performance characteristics determinedby [employer]. It has not been cleared or approved by the Foodand Drug Administration.PATIENT WAS FASTINGPERFORMED BY: [employer] [address] [id number] BY: [employer] East End ManufacturingSelect Specialty Hospital - [facility] [id number] Eosinophils/100 WBC (Bld) 7 % Normal [facility] Work Phone: Comment on above: Test(s) 359595-CKR-O ; 167134-HFZ-K; 729656-CWF-V; 646962-Fuhczcznfembm; 894974-Djbptichuss, Total; 611820-QCW-C (Total);081041-Epuqw LDL-P; 462350-PQG Size; 008584-JI-NC Scorewas developed and its performance characteristics determinedby [employer]. It has not been cleared or approved by the Foodand Drug Administration.PATIENT WAS FASTINGPERFORMED BY: [employer] [address] [id number] BY: judge.me Bcybza4257 [place] TexxiAtrium Health Hun[facility]ville [id number] Erythrocyte distribution width (RBC) [Ratio] 13.3 % Normal 12.3-15.4 [facility] Work Phone: Comment on above: Test(s) 825497-AKK-B ; 428395-NKN-W; 988651-REH-V; 489378-Dmddnpjltcqwk; 280783-Avhjicdrbkj, Total; 324278-GBA-D (Total);785770-Nevft LDL-P; 442134-ONF Size; 930383-UL-CJ Scorewas developed and its performance characteristics determinedby [employer]. It has not been cleared or approved by the Foodand Drug Administration.PATIENT WAS FASTINGPERFORMED BY: [employer] [address] [id number] BY: judge.me Jznqji6013 [facility] [id number] Hematocrit (Bld) [Volume fraction] 44.2 % Normal 37.5-51.0 [facility] Work Phone: Comment on above: Test(s) 051970-OXO-U ; 536536-BTP-F; 610206-QQF-C; 824504-Nwwbwniqhknsg; 680050-Klgltvcryzy, Total; 297159-HTZ-E (Total);867339-Affcq LDL-P; 352804-BAH Size; 467745-IR-ID Scorewas developed and its performance characteristics determinedby [employer]. It has not been cleared or approved by the Foodand Drug Administration.PATIENT WAS FASTINGPERFORMED BY: [employer] [address] [id number] BY: MoodswingGreystone Park Psychiatric HospitalNylsrb1311 [facility] [id number] Hemoglobin (Bld) [Mass/Vol] 14.7 g/dL Normal 13.0-17.7 [facility] Work Phone: Comment on above: Test(s) 409297-FWE-G ; 044919-SAC-T; 423551-DYY-C; 082107-Axuhayukkevzs; 078892-Dxgshzxdpzw, Total; 264613-MFG-N (Total);300845-Burlj LDL-P; 318561-EUN Size; 701326-KC-VP Scorewas developed and its performance characteristics determinedby [employer]. It has not been cleared or approved by the Foodand Drug Administration.PATIENT WAS FASTINGPERFORMED BY: [employer] [address] [id number] BY: [employer] Ebvbaq0629 [facility] [id number] Immature granulocytes (Bld) [#/Vol] 0.0 {x10E3/uL} Normal 0.0-0.1 [facility] Work Phone: Comment on above: Test(s) 234209-QPE-I ; 621847-WSX-E; 041949-MEP-J; 674045-Ytbsxncfojyhl; 274886-Lpdpzkdoprt, Total; 960114-PPH-L (Total);479177-Cwzjv LDL-P; 452402-AJN Size; 865160-HQ-QF Scorewas developed and its performance characteristics determinedby [employer]. It has not been cleared or approved by the Foodand Drug Administration.PATIENT WAS FASTINGPERFORMED BY: [employer] [address] [id number] BY: [employer]6370 [facility] [id number] Immature granulocytes (Bld) [#/Vol] 0.0 10*3/uL Normal 0.0-0.1 [facility] Work Phone: Comment on above: Test(s) 903801-PLT-W ; 107554-YRG-X; 556047-TSH-I; 217668-Prkswgjgsvaqr; 133638-Rlxgtzrbtls, Total; 933138-YBZ-R (Total);186177-Jfnau LDL-P; 563413-XCB Size; 469614-FH-IZ Scorewas developed and its performance characteristics determinedby [employer]. It has not been cleared or approved by the Foodand Drug Administration.PATIENT WAS FASTINGPERFORMED BY: [employer] [address] [id number] BY: [employer] Kkhohb8810 [facility] [id number] Immature granulocytes/100 WBC (Bld) 0 % Normal [facility] Work Phone: Comment on above: Test(s) 959044-PLI-I ; 509832-SAG-I; 260718-IZR-G; 802319-Qyfrvhgzqxiui; 380001-Yanevwmszwm, Total; 216865-UBY-P (Total);282728-Ixdcd LDL-P; 369467-ODD Size; 227285-TH-JM Scorewas developed and its performance characteristics determinedby [employer]. It has not been cleared or approved by the Foodand Drug Administration.PATIENT WAS FASTINGPERFORMED BY: [employer] [address] [id number] BY: MoodswingGreystone Park Psychiatric HospitalNzfouw6056 [facility] [id number] Lymphocytes (Bld) [#/Vol] 1.6 {x10E3/uL} Normal 0.7-3.1 [facility] Work Phone: Comment on above: Test(s) 409461-SIZ-M ; 431515-CJN-U; 678305-YOU-M; 615266-Qoqqculjrkppk; 150743-Rhzpzavnege, Total; 523725-CCL-F (Total);926391-Vlajp LDL-P; 165932-ALY Size; 844045-LW-AJ Scorewas developed and its performance characteristics determinedby [employer]. It has not been cleared or approved by the Foodand Drug Administration.PATIENT WAS FASTINGPERFORMED BY: [employer] [address] [id number] BY: [employer] Bhuiib5126 [facility] [id number] Lymphocytes (Bld) [#/Vol] 1.6 10*3/uL Normal 0.7-3.1 [facility] Work Phone: Comment on above: Test(s) 790646-ETV-F ; 457077-NAD-V; 266875-EQM-Y; 288428-Ffrnfimjbzfgv; 767755-Saefsljktmo, Total; 331209-NSQ-B (Total);051203-Djwye LDL-P; 952476-YXU Size; 350526-LK-DF Scorewas developed and its performance characteristics determinedby [employer]. It has not been cleared or approved by the Foodand Drug Administration.PATIENT WAS FASTINGPERFORMED BY: [employer] [address] [id number] BY: [employer]70 [facility] [id number] Lymphocytes/100 WBC (Bld) 27 % Normal [facility] Internal Medicine Work Phone: Comment on above: Test(s) 557230-RFN-I ; 708949-CIY-H; 924591-WFI-Y; 356996-Pnfcmgxbfgycy; 918894-Rxsczrxcwwt, Total; 429638-EEF-S (Total);285684-Zdqfc LDL-P; 717960-JGK Size; 875769-TU-HJ Scorewas developed and its performance characteristics determinedby [employer]. It has not been cleared or approved by the Foodand Drug Administration.PATIENT WAS FASTINGPERFORMED BY: [employer] [address] [id number] BY: [employer]70 [facility] [id number] MCH (RBC) [Entitic mass] 31.3 pg Normal 26.6-33.0 [facility] Internal Medicine Work Phone: Comment on above: Test(s) 220982-EHY-H ; 298989-IUL-R; 436249-RCS-D; 586910-Kewhmutbqddtm; 385610-Pjbvozmtiqx, Total; 066950-YHL-U (Total);797834-Cwlcj LDL-P; 103287-HDF Size; 254620-FV-RH Scorewas developed and its performance characteristics determinedby [employer]. It has not been cleared or approved by the Foodand Drug Administration.PATIENT WAS FASTINGPERFORMED BY: [employer] [address] [id number] BY: ReCyte TherapeuticsGreystone Park Psychiatric HospitalYslvsu9292 [facility] [id number] MCHC (RBC) [Mass/Vol] 33.3 g/dL Normal 31.5-35.7 [facility] [facility] Internal Medicine Work Phone: Comment on above: Test(s) 056366-MSO-J ; 196411-NDL-M; 730867-FRE-E; 453420-Opwvhjhsqywsa; 304216-Ycwlucpvsnt, Total; 054404-CCL-N (Total);929579-Fxsdr LDL-P; 075534-WWO Size; 939780-GJ-XR Scorewas developed and its performance characteristics determinedby [employer]. It has not been cleared or approved by the Foodand Drug Administration.PATIENT WAS FASTINGPERFORMED BY: [employer] [address] [id number] BY: [employer]70 [facility] [id number] MCV (RBC) [Entitic vol] 94 fL Normal 79-97 [facility] Work Phone: Comment on above: Test(s) 307755-WSF-M ; 132589-LPS-O; 412485-SGZ-N; 621293-Pibkgnlsvbelr; 286079-Exlsxppwnar, Total; 129316-AYB-R (Total);805608-Lhdol LDL-P; 723849-EWD Size; 054679-TN-PJ Scorewas developed and its performance characteristics determinedby [employer]. It has not been cleared or approved by the Foodand Drug Administration.PATIENT WAS FASTINGPERFORMED BY: [employer] [address] [id number] BY: judge.me Rvhczp7027 [facility] [id number] Monocytes (Bld) [#/Vol] 0.8 {x10E3/uL} Normal 0.1-0.9 [facility] Work Phone: Comment on above: Test(s) 054403-VML-B ; 280889-AJZ-Z; 782106-XDG-P; 810891-Hnexxgpltnjdj; 543309-Mpwgkylgcxq, Total; 798955-WNQ-R (Total);270983-Ighga LDL-P; 404418-WPQ Size; 598242-BN-QT Scorewas developed and its performance characteristics determinedby [employer]. It has not been cleared or approved by the Foodand Drug Administration.PATIENT WAS FASTINGPERFORMED BY: [employer] [address] [id number] BY: MoodswingCibola General HospitalLxacen7953 [facility] [id number] Monocytes (Bld) [#/Vol] 0.8 10*3/uL Normal 0.1-0.9 [facility] Work Phone: Comment on above: Test(s) 138553-LTW-H ; 466809-MQI-Z; 070102-BQB-W; 639046-Juhskrqopdkwi; 019491-Sdbcgjozidt, Total; 626332-NLL-A (Total);792392-Gtelw LDL-P; 753126-EJH Size; 059510-EF-BR Scorewas developed and its performance characteristics determinedby [employer]. It has not been cleared or approved by the Foodand Drug Administration.PATIENT WAS FASTINGPERFORMED BY: [employer] [address] [id number] BY: [employer]70 [facility] [id number] Monocytes/100 WBC (Bld) 13 % Normal [facility] Work Phone: Comment on above: Test(s) 487109-ODI-G ; 678978-NLS-Z; 090758-WXU-H; 957091-Trdxofceioeil; 068834-Onkvhwiroeu, Total; 384516-CND-Z (Total);211670-Hxmpe LDL-P; 694383-BZX Size; 137430-UR-AM Scorewas developed and its performance characteristics determinedby [employer]. It has not been cleared or approved by the Foodand Drug Administration.PATIENT WAS FASTINGPERFORMED BY: [employer] [address] [id number] BY: ReCyte TherapeuticsGreystone Park Psychiatric HospitalNpzrkk2745 [facility] [id number] Neutrophils (Bld) [#/Vol] 3.2 {x10E3/uL} Normal 1.4-7.0 [facility] Work Phone: Comment on above: Test(s) 018975-QAB-A ; 932083-SAX-A; 670807-MNH-H; 223446-Rsbnwgaobrcyw; 338665-Ilzwlzhvbim, Total; 350031-ACP-K (Total);018963-Zkmsr LDL-P; 910223-VCT Size; 178753-RW-MV Scorewas developed and its performance characteristics determinedby [employer]. It has not been cleared or approved by the Foodand Drug Administration.PATIENT WAS FASTINGPERFORMED BY: [employer] [address] [id number] BY: judge.me Vqrnwq7261 [facility] [id number] Neutrophils (Bld) [#/Vol] 3.2 10*3/uL Normal 1.4-7.0 [facility] Work Phone: Comment on above: Test(s) 025467-FZG-V ; 232704-TGM-K; 180008-FWV-H; 623637-Plbygivoffsik; 886662-Hxgvxkvssns, Total; 413363-VZW-R (Total);797374-Zcrtx LDL-P; 952535-KVL Size; 455243-VJ-PN Scorewas developed and its performance characteristics determinedby [employer]. It has not been cleared or approved by the Foodand Drug Administration.PATIENT WAS FASTINGPERFORMED BY: [employer] [address] [id number] BY: Granify6370 [facility] [id number] Neutrophils/100 WBC (Bld) 53 % Normal [facility] Work Phone: Comment on above: Test(s) 335100-ZEK-M ; 425233-GQX-O; 694105-RNF-T; 611149-Ycyltoumeyhzp; 771939-Tperyszqmwd, Total; 323599-EUZ-H (Total);380334-Ypjak LDL-P; 443999-PNW Size; 612058-OZ-FK Scorewas developed and its performance characteristics determinedby [employer]. It has not been cleared or approved by the Foodand Drug Administration.PATIENT WAS FASTINGPERFORMED BY: BN [employer] [id number] BY: [employer] Wksgzo0099 [facility]rem[facility] TechnologySelect [facility] [id number] Platelets (Bld) [#/Vol] 275 {x10E3/uL} Normal 150-450 [facility] Internal Medicine Work Phone: Comment on above: Test(s) 583258-UIK-I ; 177119-YFG-M; 962452-JPE-C; 127368-Elhgahohxcdsh; 977907-Vmhnrynnqps, Total; 286071-ZDH-P (Total);751359-Rdwbc LDL-P; 995611-PBJ Size; 224797-EH-DZ Scorewas developed and its performance characteristics determinedby [employer]. It has not been cleared or approved by the Foodand Drug Administration.PATIENT WAS FASTINGPERFORMED BY: [employer] [id number] BY: Granify6370 Extremis TechnologySelect Specialty Hospital [facility] [id number] Platelets (Bld) [#/Vol] 275 10*3/uL Normal 150-450 [facility] Internal Medicine Work Phone: Comment on above: Test(s) 589679-HOD-D ; 338652-FAW-Q; 000008-HTK-M; 637454-Xzyjxvzhegsza; 564887-Pilzkkxolgo, Total; 818159-ARE-P (Total);274701-Ojkiv LDL-P; 307013-SXA Size; 026502-QE-PG Scorewas developed and its performance characteristics determinedby [employer]. It has not been cleared or approved by the Foodand Drug Administration.PATIENT WAS FASTINGPERFORMED BY: [employer] [address] [id number] BY: Granify6370 Cramer TexxiAtrium Health Huntersville [id number] RBC (Bld) [#/Vol] 4.70 {x10E6/uL} Normal 4.14-5.80 [facility] Internal Medicine Work Phone: Comment on above: Test(s) 458071-HIP-Q ; 798218-HGC-Q; 630143-BUX-V; 695077-Uoobwchxztzut; 284404-Bowpattkrbp, Total; 189560-HUH-D (Total);736255-Upyic LDL-P; 087579-RAA Size; 831476-MT-EX Scorewas developed and its performance characteristics determinedby [employer]. It has not been cleared or approved by the Foodand Drug Administration.PATIENT WAS FASTINGPERFORMED BY: [employer] [address] [id number] BY: [employer] Bdiskd2249 [facility] [id number] RBC (Bld) [#/Vol] 4.70 10*6/uL Normal 4.14-5.80 [facility] Work Phone: Comment on above: Test(s) 151104-CDP-S ; 210042-OKO-S; 274752-QAU-I; 911752-Gcqxgyrmhsqjp; 174209-Hurggahvepc, Total; 231165-GAR-Q (Total);744249-Jgkhj LDL-P; 618271-QRD Size; 891918-EF-ON Scorewas developed and its performance characteristics determinedby [employer]. It has not been cleared or approved by the Foodand Drug Administration.PATIENT WAS FASTINGPERFORMED BY: [employer] [address] [id number] BY: [employer] Xpimem7686 [facility] [id number] WBC (Bld) [#/Vol] 6.0 {x10E3/uL} Normal 3.4-10.8 [facility] Internal Medicine Work Phone: Comment on above: Test(s) 524107-IXN-V ; 120495-WSE-B; 235497-CBO-G; 429883-Kbgqnfgpiwkqt; 342787-Arkdzkcdtjf, Total; 692698-SYE-U (Total);630366-Wqsmi LDL-P; 165143-DNF Size; 467207-WT-NX Scorewas developed and its performance characteristics determinedby [employer]. It has not been cleared or approved by the Foodand Drug Administration.PATIENT WAS FASTINGPERFORMED BY: [employer] [id number] BY: [employer]70 Extremis TechnologySelect Special[facility] Hospital [facility] [id number] WBC (Bld) [#/Vol] 6.0 10*3/uL Normal 3.4-10.8 [facility] Internal Medicine Work Phone: Comment on above: Test(s) 919160-ODF-E ; 772647-MYR-X; 169129-DME-B; 629400-Nsznjuhxjpfhe; 519891-Rgehtyfflxo, Total; 121094-SRF-F (Total);126630-Ckwfn LDL-P; 838078-UIM Size; 350165-UD-HI Scorewas developed and its performance characteristics determinedby [employer]. It has not been cleared or approved by the Foodand Drug Administration.PATIENT WAS FASTINGPERFORMED BY: [employer] [id number] BY: [employer]70 CramerSaint John's Health System [id number] METABOLIC PANEL, COMPREHENSI VE (89392)Ordered By: Hair Colorist on 06-13-2019 Albumin [Mass/Vol] 4.6 g/dL Normal 3.6-4.8 [facility] Internal Medicine Work Phone: Comment on above: Test(s) 083216-OMC-M ; 960739-NDF-Y; 165527-AFN-Q; 417422-Zrfenstaqdrdj; 621395-Dowzjnchihq, Total; 072644-TLE-G (Total);093292-Wwnkp LDL-P; 616366-OBF Size; 297381-WT-KI Scorewas developed and its performance characteristics determinedby [employer]. It has not been cleared or approved by the Foodand Drug Administration.PATIENT WAS FASTINGPERFORMED BY: [employer] [address] [id number] BY: Granify6370 CramerSaint John's Health System [id number] Albumin/Globulin [Mass ratio] 2.2 {ratio} Normal 1.2-2.2 [facility] Work Phone: Comment on above: Test(s) 712072-GAF-E ; 547358-YYF-O; 984622-TZN-F; 891198-Bvjzdockzxyzy; 196818-Ucsbobckcdg, Total; 054869-FBA-N (Total);533903-Uqtyh LDL-P; 110645-KWI Size; 045099-DO-ED Scorewas developed and its performance characteristics determinedby [employer]. It has not been cleared or approved by the Foodand Drug Administration.PATIENT WAS FASTINGPERFORMED BY: Open[employer] [address] [id number] BY: [employer]70 Insync SystemsAtrium Health Hun[facility]ville [id number] ALP [Catalytic activity/Vol] 91 [iU]/L Normal 39-117 [facility] Work Phone: Comment on above: Test(s) 768084-UJE-O ; 741445-WUL-X; 711732-VKF-K; 290683-Dazmscoeoqeoe; 487735-Zmkxucumdft, Total; 301233-XDH-X (Total);583658-Oidlb LDL-P; 615132-TEE Size; 553059-PL-OJ Scorewas developed and its performance characteristics determinedby [employer]. It has not been cleared or approved by the Foodand Drug Administration.PATIENT WAS FASTINGPERFORMED BY: [employer] [address] [id number] BY: Granify6370 [facility] [id number] ALP [Catalytic activity/Vol] 91 U/L Normal 39-117 [facility] Work Phone: Comment on above: Test(s) 560929-KTB-N ; 236628-UQP-L; 874418-YWX-W; 542985-Wsrifpxviyxxo; 794273-Icquyjjmroi, Total; 996277-NCX-Y (Total);491301-Olowc LDL-P; 918176-UIR Size; 960879-NU-XO Scorewas developed and its performance characteristics determinedby [employer]. It has not been cleared or approved by the Foodand Drug Administration.PATIENT WAS FASTINGPERFORMED BY: [employer] [id number] BY: MoodswingCibola General HospitalUcjqtf5475 [facility] [id number] ALT [Catalytic activity/Vol] 14 [iU]/L Normal 0-44 [facility] Work Phone: Comment on above: Test(s) 700381-WDU-R ; 845842-NOQ-A; 450136-UCS-G; 774620-Iklstrpfhoqpp; 430917-Zkybvsshgmm, Total; 220629-RWU-C (Total);562134-Cdlcu LDL-P; 578571-GGK Size; 150232-TE-MT Scorewas developed and its performance characteristics determinedby [employer]. It has not been cleared or approved by the Foodand Drug Administration.PATIENT WAS FASTINGPERFORMED BY: [employer] [address] [id number] BY: [employer] Tsmocu8674 [facility] [id number] ALT [Catalytic activity/Vol] 14 U/L Normal 0-44 [facility] Work Phone: Comment on above: Test(s) 260791-DDT-V ; 687949-MTL-C; 152742-YFN-R; 792216-Koenrxiejwrcr; 553453-Tcwlcragkma, Total; 698544-PTO-R (Total);747303-Gttso LDL-P; 197106-EYP Size; 685159-OH-DY Scorewas developed and its performance characteristics determinedby [employer]. It has not been cleared or approved by the Foodand Drug Administration.PATIENT WAS FASTINGPERFORMED BY: [employer] [id number] BY: MoodswingGreystone Park Psychiatric HospitalDdpxnt0322 [facility] [id number] AST [Catalytic activity/Vol] 20 [iU]/L Normal 0-40 [facility] Work Phone: Comment on above: Test(s) 666761-WOA-C ; 257450-AZX-E; 202987-SPS-V; 886152-Bttvnvasdqecx; 285132-Yubfjckbhsf, Total; 077118-ADR-P (Total);523790-Cmdib LDL-P; 102480-DOG Size; 604015-ZG-RQ Scorewas developed and its performance characteristics determinedby [employer]. It has not been cleared or approved by the Foodand Drug Administration.PATIENT WAS FASTINGPERFORMED BY: [employer] [address] [id number] BY: [employer] Ntctvr7768 [facility] [id number] AST [Catalytic activity/Vol] 20 U/L Normal 0-40 [facility] Internal Medicine Work Phone: Comment on above: Test(s) 857114-EGF-M ; 608245-ZUN-N; 655502-CYP-F; 968491-Nlywmqunllfve; 977756-Bnjwfajwizu, Total; 325321-TNL-N (Total);517584-Vygil LDL-P; 253836-EXM Size; 503904-XB-BR Scorewas developed and its performance characteristics determinedby [employer]. It has not been cleared or approved by the Foodand Drug Administration.PATIENT WAS FASTINGPERFORMED BY: [employer] [address] [id number] BY: judge.me Agfpkt1419 [facility] [id number] Bilirubin [Mass/Vol] 0.4 mg/dL Normal 0.0-1.2 [facility] Internal Medicine Work Phone: Comment on above: Test(s) 125878-CTO-S ; 803853-OSK-M; 445045-LMG-Z; 433598-Jmtylszrmevcl; 625794-Lkrftyqbkag, Total; 757807-ZTF-Q (Total);479903-Brvuw LDL-P; 927879-RWW Size; 949828-RC-BC Scorewas developed and its performance characteristics determinedby [employer]. It has not been cleared or approved by the Foodand Drug Administration.PATIENT WAS FASTINGPERFORMED BY: BN [facility] [address]Bur[place] [id number] BY: MoodswingCibola General HospitalLwlowd0309 [facility] [id number] Calcium [Mass/Vol] 9.6 mg/dL Normal 8.6-10.2 [facility] Internal Medicine Work Phone: Comment on above: Test(s) 478103-DGK-W ; 076982-LRK-G; 992577-SIW-J; 493506-Rfyolkkllrsvs; 367369-Rvgkxnghywn, Total; 833921-RBH-F (Total);301246-Xudob LDL-P; 336703-VHG Size; 124452-PM-ZQ Scorewas developed and its performance characteristics determinedby [employer]. It has not been cleared or approved by the Foodand Drug Administration.PATIENT WAS FASTINGPERFORMED BY: [employer] [address] [id number] BY: Granify6370 [facility] [id number] Chloride [Moles/Vol] 101 mmol/L Normal 96-106 [facility] Work Phone: Comment on above: Test(s) 433687-KKX-V ; 050197-OQV-C; 064458-ILT-P; 694629-Ycliycjhtdpom; 603501-Lchpagtrcvj, Total; 760044-SXR-C (Total);353662-Lovjj LDL-P; 944347-REZ Size; 429321-CG-BC Scorewas developed and its performance characteristics determinedby [employer]. It has not been cleared or approved by the Foodand Drug Administration.PATIENT WAS FASTINGPERFORMED BY: [employer] [address] [id number] BY: ReCyte TherapeuticsGreystone Park Psychiatric HospitalGbmvhz3981 [facility] [id number] CO2 [Moles/Vol] 23 mmol/L Normal 20-29 [facility] Internal Medicine Work Phone: Comment on above: Test(s) 308994-INK-P ; 149345-GPK-K; 732252-ECB-P; 470647-Jcpfkmyggvqfq; 755721-Csnwiiatcjf, Total; 796067-QTE-S (Total);415221-Lychw LDL-P; 639946-ZKE Size; 264590-KT-DG Scorewas developed and its performance characteristics determinedby [employer]. It has not been cleared or approved by the Foodand Drug Administration.PATIENT WAS FASTINGPERFORMED BY: [employer] [address] [id number] BY: [employer]70 [facility] [id number] Creatinine [Mass/Vol] 1.01 mg/dL Normal 0.76-1.27 [facility] Internal Medicine Work Phone: Comment on above: Test(s) 993385-XWD-W ; 731925-LUN-H; 701528-PNC-B; 952371-Dbaxatpusyxtj; 667670-Dsgywwopaug, Total; 127726-MBO-V (Total);882844-Yjbpx LDL-P; 833314-VHR Size; 822560-WK-AK Scorewas developed and its performance characteristics determinedby [employer]. It has not been cleared or approved by the Foodand Drug Administration.PATIENT WAS FASTINGPERFORMED BY: [employer] [address] [id number] BY: judge.me Vjgnuw7924 [facility] [id number] GFR/1.73 sq M predicted among blacks CKD-EPI (S/P/Bld) [Vol rate/Area] 88 mL/min/1.73 Normal [facility] Internal Medicine Work Phone: Comment on above: Test(s) 022256-SAB-B ; 942044-GSZ-B; 244104-MFH-D; 412416-Jqpkrotrxdowf; 820260-Qfcpujwvulp, Total; 740625-OKE-R (Total);869978-Ejpyh LDL-P; 439483-QDD Size; 942034-SM-QR Scorewas developed and its performance characteristics determinedby [employer]. It has not been cleared or approved by the Foodand Drug Administration.PATIENT WAS FASTINGPERFORMED BY: BN [facility] [address] [id number] BY: ReCyte TherapeuticsCibola General HospitalWbudgt0715 [facility] [id number] GFR/1.73 sq M predicted among non-blacks CKD-EPI (S/P/Bld) [Vol rate/Area] 76 mL/min/1.73 Normal [facility] Internal Medicine Work Phone: Comment on above: Test(s) 499386-DLH-V ; 097445-YMK-S; 240676-ASI-O; 294987-Gzzehgfzyarpm; 977105-Ooklwhpjtqk, Total; 070338-HMP-I (Total);823690-Nruxk LDL-P; 407459-IBB Size; 228137-AX-CM Scorewas developed and its performance characteristics determinedby [employer]. It has not been cleared or approved by the Foodand Drug Administration.PATIENT WAS FASTINGPERFORMED BY: [employer] [address] [id number] BY: Granify6370 [facility] [id number] Globulin (S) [Mass/Vol] 2.1 g/dL Normal 1.5-4.5 [facility] Internal Medicine Work Phone: Comment on above: Test(s) 298709-OPO-N ; 366037-RIF-Q; 091247-MHG-D; 178938-Fajouuobpbcar; 227034-Xceebdzocxk, Total; 448625-JLF-M (Total);190065-Tesra LDL-P; 479844-FRK Size; 972783-MD-UQ Scorewas developed and its performance characteristics determinedby [employer]. It has not been cleared or approved by the Foodand Drug Administration.PATIENT WAS FASTINGPERFORMED BY: [employer] [address] [id number] BY: [employer]fka [employer])lin6370 [facility] [id number] Glucose [Mass/Vol] 90 mg/dL Normal 65-99 [facility] Internal Medicine Work Phone: Comment on above: Test(s) 925378-EPZ-O ; 927929-BRR-Q; 326819-ISE-D; 453133-Zyurmclnziiqa; 845365-Zsvkflsvcjs, Total; 211241-QZR-J (Total);647762-Gkvdd LDL-P; 289731-UOF Size; 155398-VM-UT Scorewas developed and its performance characteristics determinedby [employer]. It has not been cleared or approved by the Foodand Drug Administration.PATIENT WAS FASTINGPERFORMED BY: [employer] [address] [id number] BY: [employer] Cncnpa6886 [facility] [id number] Potassium [Moles/Vol] 4.8 mmol/L Normal 3.5-5.2 [facility] Internal Medicine Work Phone: Comment on above: Test(s) 476202-WOZ-T ; 730820-PGZ-U; 683628-XHE-V; 121489-Boaizlulyncfq; 752027-Shctoutereq, Total; 891556-GEW-O (Total);131886-Tztsd LDL-P; 988601-WCU Size; 910904-OB-DA Scorewas developed and its performance characteristics determinedby [employer]. It has not been cleared or approved by the Foodand Drug Administration.PATIENT WAS FASTINGPERFORMED BY: [employer] [address] [id number] BY: [employer] Ewmzxm1570 [facility] [id number] Protein [Mass/Vol] 6.7 g/dL Normal 6.0-8.5 [facility] Internal Medicine Work Phone: Comment on above: Test(s) 480442-OKC-H ; 010304-FFZ-I; 767609-TLG-E; 663857-Mlmosmvjhpmdn; 340525-Rxjtpmmypac, Total; 853450-MIM-F (Total);987207-Ehypl LDL-P; 195904-UQZ Size; 787163-RS-TP Scorewas developed and its performance characteristics determinedby [employer]. It has not been cleared or approved by the Foodand Drug Administration.PATIENT WAS FASTINGPERFORMED BY: Open[employer] Insekvmfav0078 [facility] [id number] BY: [employer] Xqcjlt9878 Insync SystemsAtrium Health Hun[facility]ville [id number] Sodium [Moles/Vol] 141 mmol/L Normal 134-144 [facility] Internal Medicine Work Phone: Comment on above: Test(s) 991607-JKO-G ; 275891-HGY-Y; 702507-AAX-Z; 125869-Uvjtslcnfedsq; 323223-Ugbxxmcliyc, Total; 219065-MJW-V (Total);231826-Gppkq LDL-P; 702327-AZT Size; 512535-PX-TP Scorewas developed and its performance characteristics determinedby [employer]. It has not been cleared or approved by the Foodand Drug Administration.PATIENT WAS FASTINGPERFORMED BY: [employer] [address] [id number] BY: Granify6370 Cramer TexxiAtrium Health Huntersville [id number] Urea nitrogen [Mass/Vol] 12 mg/dL Normal 8-27 [facility] Work Phone: Comment on above: Test(s) 350213-JXX-E ; 292635-ODV-T; 577630-ECL-D; 214659-Zllnkajkygdjj; 889855-Awqxnmnfixh, Total; 282109-PQZ-P (Total);957449-Hoaoq LDL-P; 443652-ZVZ Size; 086517-RC-QN Scorewas developed and its performance characteristics determinedby [employer]. It has not been cleared or approved by the Foodand Drug Administration.PATIENT WAS FASTINGPERFORMED BY: [employer] [address] [id number] BY: [employer])lin6370 [facility] [id number] Urea nitrogen/Creatinine [Mass ratio] 12 mg/mg Normal 10-24 [facility] Work Phone: Comment on above: Test(s) 223936-PGH-X ; 853930-TVI-R; 532940-LAE-P; 109465-Pvrdscsimpngp; 782741-Zycnorrjrbe, Total; 452186-SIJ-B (Total);364066-Zpknv LDL-P; 182834-UUE Size; 991337-TH-JB Scorewas developed and its performance characteristics determinedby [employer]. It has not been cleared or approved by the Foodand Drug Administration.PATIENT WAS FASTINGPERFORMED BY: [employer] [id number] BY: [employer] Tw[address] [place] [address] [id number] MICROALBUMINOrdered By: Syst em Diesel Motor Mechanic on 06-13-2019 Albumin DL <= 20 mg/L (U) [Mass/Vol] mg/dL Normal [facility] Work Phone: Comment on above: Verified by repeat analysis Test(s) 236637-NLE-L ; 794872-JXT-S; 870664-DQE-A; 803358-Zedifycblpwog; 308781-Owmwypcqbqn, Total; 855898-CED-W (Total);796439-Fyifx LDL-P; 066912-EBG Size; 580641-ZX-UW Scorewas developed and its performance characteristics determinedby [employer]. It has not been cleared or approved by the Foodand Drug Administration.PATIENT WAS FASTINGPERFORMED BY: [employer] [id number] BY: MoodswingGreystone Park Psychiatric HospitalJnlsit4716 [facility] [id number] Albumin DL <= 20 mg/L (U) [Mass/Vol] mg/dL Normal [facility] Work Phone: Comment on above: Verified by repeat analysis Test(s) 518357-NRZ-V ; 752866-TYC-A; 133480-BIP-E; 092928-Ssvnypdlgaoyp; 386853-Cgluunpidhz, Total; 775624-CPF-V (Total);685400-Ppsby LDL-P; 313074-ISV Size; 831165-ZV-FA Scorewas developed and its performance characteristics determinedby [employer]. It has not been cleared or approved by the Foodand Drug Administration.PATIENT WAS FASTINGPERFORMED BY: Openbravo [address] [id number] BY: [employer] Ojtzfy5119 [facility] [id number] Albumin/Creatinine (U) [Mass ratio] <6.3 Normal 0.0-30.0 [facility] Work Phone: Comment on above: Normal: 0.0 - 30.0 A lbuminuria: 31.0 - 300.0 Clinical albuminuria: >300.0 Test(s) 827803-QJT-Z ; 570146-HCD-W; 331200-XWA-D; 136314-Nvsknrawzjuyj; 490073-Nqktgoyyfnd, Total; 763919-FFE-D (Total);385201-Xqnwr LDL-P; 082070-ATO Size; 931055-PK-SL Scorewas developed and its performance characteristics determinedby [employer]. It has not been cleared or approved by the Foodand Drug Administration.PATIENT WAS FASTINGPERFORMED BY: Open[employer] [address] [id number] BY: [employer]70 [facility] [id number] Creatinine (U) [Mass/Vol] 47.6 mg/dL Normal [facility] Work Phone: Comment on above: Test(s) 871544-XMV-I ; 763905-NWG-T; 936324-BDG-A; 031410-Hzahobjodxxxy; 992769-Rplweubfbxg, Total; 963951-UGZ-C (Total);612637-Xfquu LDL-P; 752498-BUF Size; 026944-MR-BH Scorewas developed and its performance characteristics determinedby [employer]. It has not been cleared or approved by the Foodand Drug Administration.PATIENT WAS FASTINGPERFORMED BY: Openb[employer] [address] [id number] BY: MoodswingGreystone Park Psychiatric HospitalUupfmy4547 [facility] [id number] NMR Profile (44235)Ordered B y: Hair Colorist on 06-13-2019 Cholesterol [Mass/Vol] 155 mg/dL Normal 100-199 [facility] Internal Medicine Work Phone: Comment on above: Test(s) 938159-XCP-U ; 741843-CDI-T; 247345-COO-Z; 002690-Seafgdzmiyhtn; 079807-Awkoawtgwes, Total; 840563-ZYS-S (Total);741875-Bohue LDL-P; 542261-YXE Size; 514246-IP-NL Scorewas developed and its performance characteristics determinedby [employer]. It has not been cleared or approved by the Foodand Drug Administration.PATIENT WAS FASTINGPERFORMED BY: [employer] [facility] [id number] BY: PaymetricSaint John's Health System [id number] Lipoprotein.alpha [Moles/Vol] 39.4 umol/L Normal [facility] Internal Medicine Work Phone: Comment on above: Test(s) 932022-YZT-A ; 791063-IKV-Y; 624750-FDH-Y; 107821-Wtxxvklxycgzg; 004766-Tajscljlckd, Total; 418836-XTF-Y (Total);690513-Ewvgb LDL-P; 440848-ZBQ Size; 821679-JK-UM Scorewas developed and its performance characteristics determinedby [employer]. It has not been cleared or approved by the FoodTweetMeme Drug Administration.PATIENT WAS FASTINGPERFORMED BY: [employer] [place] [address] [id number] BY: [employer]70 CramerSaint John's Health System [id number] Lipoprotein.beta.subpa rticle [Entitic length] 20.7 nm Normal [facility] Work Phone: Comment on above: INTERPRETATIVE INFORMATION PARTICLE CONCENTRATION AND SIZE <--Lower CVD Risk Higher CVD Risk--> LDL AND HDL PARTICLES Percentile in Reference Population HDL-P (total) High 75th 50th 25th Low >34.9 34.9 30.5 26.7 <26.7 . Small LDL-P Low 25th 50th 75th High <117 117 527 839 >839 . LDL Size <-Large (Pattern A)-> <-Small (Pattern B)-> 23.0 20.6 20.5 19.0 Small LDL-P and LDL Size are associated with CVD risk, but not afterLDL-P is taken into account. Test(s) 446919-XFT-F ; 963443-ANR-T; 460826-BQU-Z; 089062-Jtohfftdtnnan; 192065-Mjgxcjhqkjk, Total; 282091-IGP-T (Total);476327-Nnief LDL-P; 221964-PJF Size; 625568-ZU-KS Scorewas developed and its performance characteristics determinedby [employer]. It has not been cleared or approved by the Foodand Drug Administration.PATIENT WAS FASTINGPERFORMED BY: [employer] [address] [id number] BY: [employer] Xkakzs3677 [facility] [id number] Lipoprotein.beta.subpa rticle [Moles/Vol] 1218 nmol/L Abnormal [facility] Work Phone: Comment on above: Low < 1000 Moderate 1000 - 1299 Borderline-High 1300 - 1599 High 1600 - 2000 Very High > 2000 Test(s) 908741-WKZ-S ; 005642-AVI-D; 919169-TUX-X; 386509-Iwmgpfcfkztws; 405246-Vlyiqststxg, Total; 521276-TWT-B (Total);917117-Fifpd LDL-P; 427009-OKD Size; 240910-NM-HP Scorewas developed and its performance characteristics determinedby [employer]. It has not been cleared or approved by the Foodand Drug Administration.PATIENT WAS FASTINGPERFORMED BY: [employer] [id number] BY: [employer] Yofeik0704 [facility] [id number] Lipoprotein.beta.subpa rticle.small [Moles/Vol] 729 nmol/L Abnormal [facility] Work Phone: Comment on above: Test(s) 542355-XIH-Y ; 240533-GKC-L; 754768-SAO-H; 552647-Uxgryluhfutpb; 169128-Gwxnhyshkld, Total; 171788-SSO-V (Total);157153-Rswhf LDL-P; 152942-QQT Size; 452264-EY-DF Scorewas developed and its performance characteristics determinedby [employer]. It has not been cleared or approved by the Foodand Drug Administration.PATIENT WAS FASTINGPERFORMED BY: [employer] [id number] BY: Granify6370 [facility] [id number] Triglyceride [Mass/Vol] 72 mg/dL Normal 0-149 [facility] Work Phone: Comment on above: Test(s) 032231-VMX-I ; 627283-JWL-H; 258854-HKG-L; 715126-Tnrsybeigbjwf; 961889-Jgjmyctaorz, Total; 791847-PER-R (Total);467335-Fzbuq LDL-P; 355089-HCW Size; 061596-XY-RR Scorewas developed and its performance characteristics determinedby [employer]. It has not been cleared or approved by the Foodand Drug Administration.PATIENT WAS FASTINGPERFORMED BY: Openbravo [address] [id number] BY: [employer] Ultyzz4811 [facility] [id number] NMR Profile (42480) 55 mg/dL Normal [facility] Work Phone: Comment on above: Test(s) 320874-WIZ-O ; 147625-ILF-D; 397524-IEH-A; 484983-Sgllswqtdtwnl; 734174-Auzusezapyu, Total; 241763-TVF-V (Total);529581-Bnzwx LDL-P; 224994-MZM Size; 591714-MS-RD Scorewas developed and its performance characteristics determinedby [employer]. It has not been cleared or approved by the Foodand Drug Administration.PATIENT WAS FASTINGPERFORMED BY: [employer] [address] [id number] BY: [employer]70 [facility] [id number] NMR Profile (50556) 86 mg/dL Normal 0-99 [facility] Internal Medicine Work Phone: Comment on above: . Optimal < 100 Abov e optimal 100 - 129 Borderline 130 - 159 High 160 - 189 Very high > 189 .LDL-C is inaccurate if patient is non-fasting. Test(s) 382003-WTX-C ; 184948-JSB-J; 008459-XML-G; 640887-Tonyezuiwrzno; 510049-Jugmmcxwvzd, Total; 418105-QCD-Y (Total);507720-Lrgwe LDL-P; 279188-PPZ Size; 850226-DJ-VG Scorewas developed and its performance characteristics determinedby [employer]. It has not been cleared or approved by the Foodand Drug Administration.PATIENT WAS FASTINGPERFORMED BY: Openbravo [address] [id number] BY: [employer] Stlzmk3109 [facility] [id number] NMR Profile (41818) 72 mg/dL Normal 0-149 [facility]; [facility] Work Phone: NMR Profile (70959) 155 mg/dL Normal 100-199 [facility]; [facility] Work Phone: PSA (PROSTATE SPECIFIC ANTIG EN) (V76.44)Ordered By: Hair Colorist on 06-13-2019 Prostate specific Ag [Mass/Vol] 1.1 ng/mL Normal 0.0-4.0 [facility] Work Phone: Comment on above: Horace ECLIA methodol ogy. .According to the [place] [employer], Serum PSA shoulddecrease and remain at undetectable levels after radicalprostatectomy. The AUA defines biochemical recurrence as an initialPSA value 0.2 ng/mL or greater followed by a subsequent confirmatoryPSA value 0.2 ng/mL or greater.Values obtained with different assay methods or kits cannot be usedinterchangeably. Results cannot be interpreted as absolute evidenceof the presence or absence of malignant disease. Test(s) 451042-BKP-O ; 174054-BSG-W; 546499-RMV-Z; 346512-Xfblksqgtomvc; 421237-Eewcjfuymfs, Total; 181873-PSM-I (Total);352873-Yzybn LDL-P; 684448-UKA Size; 555865-TK-TG Scorewas developed and its performance characteristics determinedby [employer]. It has not been cleared or approved by the Foodand Drug Administration.PATIENT WAS FASTINGPERFORMED BY: [employer] [id number] BY: [employer]70 [employer] [facility] [id number] T3, FREE (TRIDOTHYRONINE) (8 2080)Ordered By: Hair Colorist on 06-13-2019 Free T3 [Mass/Vol] 2.9 pg/mL Normal 2.0-4.4 [facility] Internal Medicine Work Phone: Comment on above: Test(s) 787427-DJI-Q ; 565005-DFL-R; 947873-LJR-A; 369962-Fgneibuxpseko; 041763-Hjwqsetsqbu, Total; 895919-ADQ-G (Total);947747-Zsezs LDL-P; 641241-MZY Size; 564292-IU-DF Scorewas developed and its performance characteristics determinedby [employer]. It has not been cleared or approved by the Foodand Drug Administration.PATIENT WAS FASTINGPERFORMED BY: Openbravo [address] [id number] BY: [employer]70 [employer] [facility] [id number] T4, FREE (THYROXINE) (34356) Ordered By: Hair Colorist on 06-13-2019 Free T4 [Mass/Vol] 1.23 ng/dL Normal 0.82-1.77 [facility] Internal Medicine Work Phone: Comment on above: Test(s) 276462-RDY-W ; 037315-YDJ-L; 260122-QTN-A; 297369-Tzsnxnzuuoirl; 852011-Lsqkoylhksn, Total; 330668-YBG-W (Total);444204-Baqqz LDL-P; 762410-ECJ Size; 253581-LA-JK Scorewas developed and its performance characteristics determinedby [employer]. It has not been cleared or approved by the Foodand Drug Administration.PATIENT WAS FASTINGPERFORMED BY: [employer] [place] [address] [id number] BY: [employer]70 Extremis TechnologySelect [facility] [id number] TSH (27754)Ordered By: Senzari Diesel Motor Mechanic on 06-13-2019 TSH Qn 9.910 {uIU/mL} Abnormal 0.450-4.500 [facility] Internal Medicine Work Phone: Comment on above: Test(s) 017966-ADG-W ; 154425-CFI-L; 262916-RGF-R; 815013-Dgzytbybeypwv; 567565-Guzpocdwchq, Total; 835444-RLE-M (Total);735746-Asspl LDL-P; 525969-OIC Size; 131073-PA-IA Scorewas developed and its performance characteristics determinedby [employer]. It has not been cleared or approved by the Foodand Drug Administration.PATIENT WAS FASTINGPERFORMED BY: [employer] [id number] BY: [employer]70 [facility] [id number] URINALYSIS, W/ MICRO (52806) Ordered By: Hair Colorist on 06-13-2019 Appearance (U) Clear Normal Comprehens [facility] Internal Medicine Work Phone: Comment on above: Test(s) 063052-FCW-S ; 663081-NZE-D; 855913-BJE-E; 739854-Xcyxcsebxxfkv; 203854-Hhamhmwdxly, Total; 130679-PFQ-W (Total);199137-Rntds LDL-P; 342092-EHP Size; 065368-MC-LM Scorewas developed and its performance characteristics determinedby [employer]. It has not been cleared or approved by the Foodand Drug Administration.PATIENT WAS FASTINGPERFORMED BY: [employer] [id number] BY: [employer] [facility] [id number] Bilirubin Ql (U) Negative Normal Comprehe nsive Internal Medicine Work Phone: Comment on above: Test(s) 084062-BLN-Q ; 253282-TSX-O; 216562-FZT-I; 475365-Secrtvzboyvpy; 416197-Phpmqfkjrmx, Total; 021133-EEA-O (Total);193775-Vlpzo LDL-P; 479480-PYR Size; 354138-DE-OU Scorewas developed and its performance characteristics determinedby [employer]. It has not been cleared or approved by the Foodand Drug Administration.PATIENT WAS FASTINGPERFORMED BY: [employer] [id number] BY: [employer]70 [facility] [id number] Bilirubin Ql (U) Negative Normal Comprehe nsive Internal Medicine Work Phone: Comment on above: Test(s) 587231-JIA-P ; 527199-BIX-C; 740847-XGP-J; 866784-Lfpujmmabemgq; 397432-Sbesqemnbzr, Total; 599795-JFD-Z (Total);347142-Ubnku LDL-P; 844980-HZF Size; 755888-SK-QI Scorewas developed and its performance characteristics determinedby [employer]. It has not been cleared or approved by the Foodand Drug Administration.PATIENT WAS FASTINGPERFORMED BY: Openbravo [address] [id number] BY: [employer]spanblin [place] [id number] Color (U) Yellow Normal [facility] Internal Medicine Work Phone: Comment on above: Test(s) 595506-NRO-Q ; 919150-SEC-R; 983915-XJS-U; 157355-Rqkpumleqpusc; 031376-Skesnkosekb, Total; 609710-NIS-Q (Total);367335-Wekwg LDL-P; 393058-MHT Size; 918884-GA-HC Scorewas developed and its performance characteristics determinedby [employer]. It has not been cleared or approved by the Foodand Drug Administration.PATIENT WAS FASTINGPERFORMED BY: Openbravo [address] [id number] BY: [employer] Ppqryt0388 [facility] [id number] Glucose Ql (U) Negative Normal [facility] Internal Medicine Work Phone: Comment on above: Test(s) 339847-HFO-B ; 536489-KOX-B; 767418-JKR-P; 036159-Egbindwlfjffx; 814163-Uhqurdlklit, Total; 490009-RKD-B (Total);654619-Xiaru LDL-P; 518628-MSM Size; 984176-LK-OS Scorewas developed and its performance characteristics determinedby [employer]. It has not been cleared or approved by the Foodand Drug Administration.PATIENT WAS FASTINGPERFORMED BY: [employer] [address] [id number] BY: MoodswingGreystone Park Psychiatric HospitalYulvsd9348 [facility] [id number] Glucose Ql (U) Negative Normal [facility]pre[facility] Internal Medicine Work Phone: Comment on above: Test(s) 342691-VOY-U ; 801331-EUN-X; 984981-LDX-S; 280332-Yfbcaslklnvuh; 885500-Cvqfmmvzojt, Total; 417559-HAO-I (Total);226805-Qrmln LDL-P; 618558-HYG Size; 340392-IH-WS Scorewas developed and its performance characteristics determinedby [employer]. It has not been cleared or approved by the Foodand Drug Administration.PATIENT WAS FASTINGPERFORMED BY: Openbravo [address] [id number] BY: MoodswingJose [place] 3381070 [facility] [id number] Hemoglobin Ql (U) Negative Normal Compreh ensive Internal Medicine Work Phone: Comment on above: Test(s) 585597-MJY-I ; 918298-TEC-O; 868113-EAO-D; 546913-Dfjrhkovfuvtu; 948024-Nnqwozdbpyj, Total; 207889-INS-R (Total);171712-Khenq LDL-P; 196151-MAT Size; 945418-SF-MX Scorewas developed and its performance characteristics determinedby [employer]. It has not been cleared or approved by the Foodand Drug Administration.PATIENT WAS FASTINGPERFORMED BY: Openbravo [address] [id number] BY: judge.me Ygnnso0516 [facility] [id number] Hemoglobin Ql (U) Negative Normal Compreh ensive Internal Medicine Work Phone: Comment on above: Test(s) 661009-KZB-P ; 184279-MSZ-K; 512011-KQB-I; 786528-Btnbmrwkmsbsn; 550022-Qxtmdbulivk, Total; 890497-OSJ-T (Total);057766-Wvbxb LDL-P; 748414-WPG Size; 102710-LE-HC Scorewas developed and its performance characteristics determinedby [employer]. It has not been cleared or approved by the Foodand Drug Administration.PATIENT WAS FASTINGPERFORMED BY: Openbravo [address] [id number] BY: ReCyte TherapeuticsJose Ville 3381070 [facility] [id number] Ketones Ql (U) Negative Normal Comprehens deny Internal Medicine Work Phone: Comment on above: Test(s) 366146-LYE-W ; 269763-FJP-P; 568957-UPY-M; 514244-Puaczzscyqtph; 163491-Jirptseqyry, Total; 315791-BXD-J (Total);988779-Fjrgz LDL-P; 594546-VRV Size; 563851-GT-NZ Scorewas developed and its performance characteristics determinedby [employer]. It has not been cleared or approved by the Foodand Drug Administration.PATIENT WAS FASTINGPERFORMED BY: Openbravo [address] [id number] BY: i.am.plus electronicsSelect Specialty Hospital - [facility] [id number] Ketones Ql (U) Negative Normal [facility] Internal Medicine Work Phone: Comment on above: Test(s) 019749-EQX-D ; 368553-VRE-B; 771833-MDR-C; 788236-Azdetkjxbyvvp; 813447-Srckgcmqodf, Total; 512877-QFF-J (Total);117356-Brbro LDL-P; 971565-DAM Size; 287294-SW-CC Scorewas developed and its performance characteristics determinedby [employer]. It has not been cleared or approved by the Foodand Drug Administration.PATIENT WAS FASTINGPERFORMED BY: [employer] [id number] BY: [employer]70 [employer] East End ManufacturingSelect Specialty Hospital - [facility] [id number] Leukocyte esterase Test strip Ql (U) Negative Normal [facility] Internal Medicine Work Phone: Comment on above: Test(s) 138318-ASK-M ; 338790-GTH-S; 990932-OIH-F; 174765-Fvcplkwrlpfjr; 951078-Ivlllrnnffe, Total; 231735-IWB-P (Total);819568-Yhrsu LDL-P; 865714-LJZ Size; 035169-ZB-SH Scorewas developed and its performance characteristics determinedby [employer]. It has not been cleared or approved by the Foodand Drug Administration.PATIENT WAS FASTINGPERFORMED BY: Openbravo [address] [id number] BY: [employer]70 [employer] [facility] [id number] Leukocyte esterase Test strip Ql (U) Negative Normal [facility] Work Phone: Comment on above: Test(s) 752487-BJV-Q ; 334402-RRF-Y; 857000-CNZ-V; 345716-Shmmrdgrafqxd; 010276-Tzzihkfrecz, Total; 325278-SOE-W (Total);682294-Gngqb LDL-P; 417663-TSU Size; 047821-ON-DQ Scorewas developed and its performance characteristics determinedby [employer]. It has not been cleared or approved by the Foodand Drug Administration.PATIENT WAS FASTINGPERFORMED BY: [employer] [id number] BY: [employer]70 [facility] [id number] Microscopic observation LM Nom (Urine sed) MICRON Normal [facility] Work Phone: Comment on above: Microscopic follows if indicated. Test(s) 953346-WUF-F ; 843593-RLA-B; 030281-HHY-Y; 557147-Rmftiychmfpsf; 368901-Kqzxbimtxaz, Total; 557813-OVZ-Z (Total);797610-Phvxt LDL-P; 756106-MZB Size; 270228-TG-WY Scorewas developed and its performance characteristics determinedby [employer]. It has not been cleared or approved by the FoodTweetMeme Drug Administration.PATIENT WAS FASTINGPERFORMED BY: [employer] [id number] BY: [employer] Twhkky3739 [facility] [id number] Microscopic observation LM Nom (Urine sed) See below: Normal [facility] Work Phone: Comment on above: Microscopic was alexandre cated and was performed. Test(s) 439872-CHJ-O ; 768588-ATV-D; 730428-XZQ-C; 361664-Kpxlhtmueauib; 639673-Nfjlajbnjsj, Total; 601041-BUP-J (Total);173312-Rjups LDL-P; 889862-PII Size; 862896-MI-ED Scorewas developed and its performance characteristics determinedby [employer]. It has not been cleared or approved by the Foodand Drug Administration.PATIENT WAS FASTINGPERFORMED BY: [employer] [id number] BY: MoodswingGreystone Park Psychiatric HospitalYisqhx0946 [facility] [id number] Nitrite Ql (U) Negative Normal Comprehens deny Internal Medicine Work Phone: Comment on above: Test(s) 422339-VFH-Q ; 635509-GFQ-C; 029202-CJH-A; 892346-Zcujmjrnaguln; 221056-Aoinhdrfdtf, Total; 173926-XVM-T (Total);867876-Oylxu LDL-P; 520081-RII Size; 262364-HE-KW Scorewas developed and its performance characteristics determinedby [employer]. It has not been cleared or approved by the Foodand Drug Administration.PATIENT WAS FASTINGPERFORMED BY: Openbravo [address] [id number] BY: judge.me Dgspre2667 [facility] [id number] Nitrite Ql (U) Negative Normal Comprehens [facility] Internal Medicine Work Phone: Comment on above: Test(s) 489109-QNK-K ; 738697-MXW-U; 986959-EEN-E; 381228-Sqtxofamtwhlp; 612687-Nablxysfjok, Total; 824852-NOV-D (Total);529911-Ejqyh LDL-P; 993166-XAC Size; 079806-LA-HX Scorewas developed and its performance characteristics determinedby [employer]. It has not been cleared or approved by the Foodand Drug Administration.PATIENT WAS FASTINGPERFORMED BY: Open[employer] [address] [id number] BY: ReCyte TherapeuticsGreystone Park Psychiatric HospitalCgrdmh0203 [facility] [id number] pH (U) 7.0 [pH] Normal 5.0-7.5 [facility] Work Phone: Comment on above: Test(s) 227484-NGQ-V ; 959219-IAB-O; 325189-TDP-Y; 030301-Bhikapptzqqon; 298936-Vugzkzruepl, Total; 311912-HMT-C (Total);526788-Yptvk LDL-P; 447080-YKA Size; 153739-LY-RG Scorewas developed and its performance characteristics determinedby [employer]. It has not been cleared or approved by the Foodand Drug Administration.PATIENT WAS FASTINGPERFORMED BY: [employer] [id number] BY: [employer]70 [facility] [id number] Protein Ql (U) Negative Normal Comprehens [facility] Internal Medicine Work Phone: Comment on above: Test(s) 138172-NJC-D ; 305101-JVQ-A; 108311-PKH-G; 833884-Jmbozhveddxzk; 118904-Wyyvrbmjxoe, Total; 772147-FYU-E (Total);985990-Fwrvp LDL-P; 218271-OFD Size; 340170-II-IY Scorewas developed and its performance characteristics determinedby [employer]. It has not been cleared or approved by the Foodand Drug Administration.PATIENT WAS FASTINGPERFORMED BY: [employer] [id number] BY: [employer]6370 [facility] [id number] Protein Ql (U) Negative Normal Comprehens deny Internal Medicine Work Phone: Comment on above: Test(s) 607909-ZFX-C ; 127242-LVC-Q; 207508-LSM-F; 463530-Rmowifpguloke; 876478-Aplradrvjnh, Total; 923019-ZUB-A (Total);136623-Ytxjl LDL-P; 010666-ALR Size; 699275-LN-RB Scorewas developed and its performance characteristics determinedby [employer]. It has not been cleared or approved by the Foodand Drug Administration.PATIENT WAS FASTINGPERFORMED BY: [employer] [id number] BY: Gran[employer]6370 CramerSaint John's Health System [id number] Specific gravity (U) [Rel density] 1.012 1 Normal 1.005-1.030 [facility] Internal Medicine Work Phone: Comment on above: Test(s) 112897-FIW-T ; 994270-ZNR-H; 526182-UJJ-E; 693210-Nyiiixwgndopm; 369135-Kyrkzoqipvk, Total; 549358-TLR-T (Total);537813-Ibbst LDL-P; 325158-BRK Size; 465090-KJ-PZ Scorewas developed and its performance characteristics determinedby [employer]. It has not been cleared or approved by the Foodand Drug Administration.PATIENT WAS FASTINGPERFORMED BY: [employer] [address] [id number] BY: [employer]70 Insync SystemsAtrium Health Huntersville [id number] Urobilinogen (U) [Mass/Vol] 0.2 mg/dL Normal 0.2-1.0 [facility] Internal Medicine Work Phone: Comment on above: Test(s) 903708-ZDZ-B ; 926773-EXP-B; 248526-DDG-Z; 568999-Rozvcrmsfvong; 689555-Fdfygpxnqho, Total; 565324-XWR-S (Total);269186-Rmckl LDL-P; 190031-FSR Size; 242101-RP-NS Scorewas developed and its performance characteristics determinedby [employer]. It has not been cleared or approved by the Foodand Drug Administration.PATIENT WAS FASTINGPERFORMED BY: Openbravo [address] [id number] BY: Granify6370 [facility] [id number] Urobilinogen Test strip (U) [Mass/Vol] 0.2 mg/dL Normal 0.2-1.0 [facility] Internal Medicine Work Phone: Comment on above: Test(s) 691059-NXR-X ; 745380-MIU-S; 946007-SFR-K; 565586-Rfzkxivcntaax; 481367-Blhjlbvvpvo, Total; 809598-RZB-X (Total);796834-Avroa LDL-P; 725899-ZPA Size; 664681-LJ-MD Scorewas developed and its performance characteristics determinedby [employer]. It has not been cleared or approved by the Foodand Drug Administration.PATIENT WAS FASTINGPERFORMED BY: BN [facility] Fxcaljdvtt9832 [facility] [id number] BY: CB [facility] Nwegth2757 [facility] [id number] Lipid ProfileOrdered By: Em tem Diesel Motor Mechanic on 06-28-2018 Cholesterol in HDL mass conc 56 mg/dL Normal [facility] Work Phone: Comment on above: The drugs N-Acetylcy steine and Metamizole may falselydepress this assay. Reference Range HDL <40 mg/dL Low HDL Cholesterol HDL >or= 60 mg/dL High HDL Cholesterol [facility] [address] [place], [place], [id number] Cholesterol in LDL mass conc 78 mg/dL Normal 0-130 [facility] Work Phone: Comment on above: [facility] [address] [place], [place], [phone] Cholesterol in VLDL mass conc 12 mg/dL Normal 5-40 [facility] Work Phone: Comment on above: [facility] [address] [place], [place], [phone] Cholesterol mass conc 146 mg/dL Normal Com prehensive Internal Medicine Work Phone: Comment on above: <200 mg/dL Desirable 200-240 mg/dL Borderline >240 mg/dL High Risk [facility] [address] [place], [place], [address] Triglyceride mass conc 60 mg/dL Normal Co mprehensive Internal Medicine Work Phone: Comment on above: The drugs N-Acetylcy steine and Metamizole may falselydepress this assay.Serum Triglycerides Reference Interval Normal <150 mg/dL Borderline high 150 - 199 mg/dL High 200 - 499 mg/dL Very High > or = 500 mg/dL [facility] [address] [place], [place], [address] Liver ProfileOrdered By: Em tem Diesel Motor Mechanic on 06-28-2018 Albumin mass conc 3.8 g/dL Normal 3.2-5.0 [facility] Internal Medicine Work Phone: Comment on above: [facility] [address] [place], [place], [address] ALP enzyme act/vol 99 U/L Normal 45-117 [facility] Internal Medicine Work Phone: Comment on above: [facility] [address] [place], [place], [address] ALT enzyme act/vol 22 U/L Normal 16-61 [facility] Internal Medicine Work Phone: Comment on above: [facility] [address] [place], [place], [address] AST enzyme act/vol 16 U/L Normal 15-37 [facility] Internal Medicine Work Phone: Comment on above: [facility] [address] [place], [place], [address] Bilirubin mass conc 0.50 mg/dL Normal 0.20-1.00 [facility] Internal Medicine Work Phone: Comment on above: [facility] [address] [place], [place], [address] Bilirubin.direct mass conc 0.14 mg/dL Normal 0.00-0.30 [facility] Internal Medicine Work Phone: Comment on above: [facility] [address] [place], [place], [address] Globulin mass conc (S) 3.6 g/dL Normal 2.2-4.2 [email or web address] Internal Medicine Work Phone: Comment on above: [facility] [address] [place], [place], [address] Protein mass conc 7.4 g/dL Normal 6.4-8.2 Compreh ensive Internal Medicine Work Phone: Comment on above: [facility] [address] [place], [place], [address] T3, FREE (TRIDOTHYRONINE) (2 0757)Ordered By: Hair Colorist on 02-23-2018 T3 free mass conc 2.7 pg/mL Normal 2.0-4.4 Compreh ensive Internal Medicine Work Phone: Comment on above: PATIENT NOT FASTINGP ERFORMED BY: [employer] [facility] ServicesVoltaSelect [facility]ty Hospital [facility] [id number] T4, FREE (THYROXINE) (48566) Ordered By: Hair Colorist on 02-23-2018 T4 free mass conc 1.42 ng/dL Normal 0.82-1.77 Compreh ensive Internal Medicine Work Phone: Comment on above: PATIENT NOT FASTINGP ERFORMED BY: [employer] [facility] ServicesVoltaSelect Specialty Hospital [facility] [id number] Information: [id number] TSH (90850)Ordered By: Adame m Diesel Motor Mechanic on 02-23-2018 Thyrotropin Qn 5.890 {uIU/mL} Abnormal 0.450-4.500 Compr ehensive Internal Medicine Work Phone: Comment on above: PATIENT NOT FASTINGP ERFORMED BY: Granify6370 [facility] [id number] PSA (PROSTATE SPECIFIC ANTIG EN) (V76.44)Ordered By: Hair Colorist on 11-16-2017 Prostate specific Ag mass conc 1.0 ng/mL Normal 0.0-4.0 [facility] Work Phone: Comment on above: Horace ECLIA methodol ogy. .According to the [place] [employer], Serum PSA shoulddecrease and remain at undetectable levels after radicalprostatectomy. The AUA defines biochemical recurrence as an initialPSA value 0.2 ng/mL or greater followed by a subsequent confirmatoryPSA value 0.2 ng/mL or greater.Values obtained with different assay methods or kits cannot be usedinterchangeably. Results cannot be interpreted as absolute evidenceof the presence or absence of malignant disease. PATIENT NOT FASTINGP ERFORMED BY: MoodswingGreystone Park Psychiatric HospitalCtdtut0302 [facility] [id number] CBC W/AUTO DIFF WBC (15618)O rdered By: Hair Colorist on 11-02-2017 Basophils #/vol (Bld) 0.0 {x10E3/uL} Normal 0.0-0.2 [facility] Work Phone: Comment on above: PATIENT WAS FASTINGP ERFORMED BY: Moodswing[address] [id number] BY: Moodswing[address] [id number] Basophils (Bld) [#/Vol] 0.0 10*3/uL Normal 0.0-0.2 [facility] Work Phone: Comment on above: PATIENT WAS FASTINGP ERFORMED BY: Moodswing[address] [id number] BY: MoodswingGreystone Park Psychiatric HospitalIuekvn6[address] [place] [address] [id number] Basophils Auto #/vol (Bld) 0.0 {x10E3/uL} Normal 0.0-0.2 [facility] Work Phone: Basophils/100 WBC (Bld) 1 % Normal [facility] Work Phone: Comment on above: PATIENT WAS FASTINGP ERFORMED BY: Moodswing[address] [id number] BY: Moodswing[address] [id number] Basophils/100 WBC Auto (Bld) 1 % Normal [facility] Work Phone: Eosinophils #/vol (Bld) 0.3 {x10E3/uL} Normal 0.0-0.4 [facility] Work Phone: Comment on above: PATIENT WAS FASTINGP ERFORMED BY: Moodswing[address] [id number] BY: MoodswingGreystone Park Psychiatric HospitalVyocna1809 [facility] [id number] Eosinophils (Bld) [#/Vol] 0.3 10*3/uL Normal 0.0-0.4 [facility] Work Phone: Comment on above: PATIENT WAS FASTINGP ERFORMED BY: Moodswing[address] [id number] BY: MoodswingGreystone Park Psychiatric HospitalGgvuhp1007 [facility] [id number] Eosinophils Auto #/vol (Bld) 0.3 {x10E3/uL} Normal 0.0-0.4 [facility] Work Phone: Eosinophils/100 WBC (Bld) 6 % Normal [facility] Work Phone: Comment on above: PATIENT WAS FASTINGP ERFORMED BY: Moodswing[address] [id number] BY: MoodswingGreystone Park Psychiatric HospitalDavqzl3177 [facility] [id number] Eosinophils/100 WBC Auto (Bld) 6 % Normal [facility] Work Phone: Erythrocyte distribution width Auto Ratio (RBC) 13.6 % Normal 12.3-15.4 [facility] Work Phone: Erythrocyte distribution width Ratio (RBC) 13.6 % Normal 12.3-15.4 [facility] Work Phone: Comment on above: PATIENT WAS FASTINGP ERFORMED BY: Moodswing[address] [id number] BY: MoodswingJose [place] 3381070 [facility] [id number] Hematocrit Auto Volume Fraction (Bld) 44.8 % Normal 37.5-51.0 [facility] Work Phone: Hematocrit Volume Fraction (Bld) 44.8 % Normal 37.5-51.0 [facility] Work Phone: Comment on above: PATIENT WAS FASTINGP ERFORMED BY: [address] [id number] BY: [facility]6370 [facility] [id number] Hemoglobin mass conc (Bld) 15.4 g/dL Normal 13.0-17.7 [facility] Work Phone: Comment on above: PATIENT WAS FASTINGP ERFORMED BY: [address] [id number] BY: [place] 2964370 [facility] [id number] Immature granulocytes #/vol (Bld) 0.0 {x10E3/uL} Normal 0.0-0.1 [facility] Work Phone: Comment on above: PATIENT WAS FASTINGP ERFORMED BY: [address] [id number] BY: [place] 2964370 [facility] [id number] Immature granulocytes (Bld) [#/Vol] 0.0 10*3/uL Normal 0.0-0.1 [facility] Work Phone: Comment on above: PATIENT WAS FASTINGP ERFORMED BY: [address] [id number] BY: [place] 2964370 [facility] [id number] Immature granulocytes/100 WBC (Bld) 0 % Normal [facility] Work Phone: Comment on above: PATIENT WAS FASTINGP ERFORMED BY: [address] [id number] BY: [facility]6370 [facility] [id number] Lymphocytes #/vol (Bld) 1.8 {x10E3/uL} Normal 0.7-3.1 [facility] Work Phone: Comment on above: PATIENT WAS FASTINGP ERFORMED BY: [employer]cierge[address] [id number] BY: JERI [facility]6370 [facility] [id number] Lymphocytes (Bld) [#/Vol] 1.8 10*3/uL Normal 0.7-3.1 [facility] Work Phone: Comment on above: PATIENT WAS FASTINGP ERFORMED BY: Moodswing[address] [id number] BY: JERI [place] 1520070 [facility] [id number] Lymphocytes Auto #/vol (Bld) 1.8 {x10E3/uL} Normal 0.7-3.1 [facility] Work Phone: Lymphocytes/100 WBC (Bld) 35 % Normal [facility] Work Phone: Comment on above: PATIENT WAS FASTINGP ERFORMED BY: Moodswing[address] [id number] BY: [place] 2964370 [facility] [id number] Lymphocytes/100 WBC Auto (Bld) 35 % Normal [facility] Work Phone: MCH Auto Entitic mass (RBC) 32.2 pg Normal 26.6-33.0 [facility] Work Phone: MCH Entitic mass (RBC) 32.2 pg Normal 26.6-33.0 [facility] Internal Medicine Work Phone: Comment on above: PATIENT WAS FASTINGP ERFORMED BY: [employer] [id number] BY: [place] 2964370 [facility] [id number] MCHC Auto mass conc (RBC) 34.4 g/dL Normal 31.5-35.7 [facility] Work Phone: MCHC mass conc (RBC) 34.4 g/dL Normal 31.5-35.7 Comp rehensive Internal Medicine Work Phone: Comment on above: PATIENT WAS FASTINGP ERFORMED BY: [employer] [id number] BY: [facility]6370 [facility] [id number] MCV Auto Entitic volume (RBC) 94 fL Normal 79-97 [facility] Work Phone: MCV Entitic volume (RBC) 94 fL Normal 79-97 [facility] Work Phone: Comment on above: PATIENT WAS FASTINGP ERFORMED BY: [employer] [id number] BY: LabErin [place] 4040370 [facility] [id number] Monocytes #/vol (Bld) 0.4 {x10E3/uL} Normal 0.1-0.9 [facility] Work Phone: Comment on above: PATIENT WAS FASTINGP ERFORMED BY: Moodswing[address] [id number] BY: LabTr[facility]6370 [facility] [id number] Monocytes (Bld) [#/Vol] 0.4 10*3/uL Normal 0.1-0.9 [facility] Work Phone: Comment on above: PATIENT WAS FASTINGP ERFORMED BY: [employer] Concierge[address] [id number] BY: [facility]6370 [facility] [id number] Monocytes Auto #/vol (Bld) 0.4 {x10E3/uL} Normal 0.1-0.9 [facility] Work Phone: Monocytes/100 WBC (Bld) 9 % Normal [facility] Work Phone: Comment on above: PATIENT WAS FASTINGP ERFORMED BY: [address] [id number] BY: [facility]6370 [address] [facility] [id number] Monocytes/100 WBC Auto (Bld) 9 % Normal [facility] Work Phone: Neutrophils #/vol (Bld) 2.5 {x10E3/uL} Normal 1.4-7.0 [facility] Work Phone: Comment on above: PATIENT WAS FASTINGP ERFORMED BY: [address] [id number] BY: [facility] TroyThe World of PicturesJose V[place] 3381070 [facility] [id number] Neutrophils (Bld) [#/Vol] 2.5 10*3/uL Normal 1.4-7.0 [facility] Work Phone: Comment on above: PATIENT WAS FASTINGP ERFORMED BY: Moodswing[address] [id number] BY: Moodswing Cnsgct6582 [facility] [id number] Neutrophils Auto #/vol (Bld) 2.5 {x10E3/uL} Normal 1.4-7.0 [facility] Work Phone: Neutrophils/100 WBC (Bld) 49 % Normal [facility] Work Phone: Comment on above: PATIENT WAS FASTINGP ERFORMED BY: Moodswing[address] [id number] BY: [facility] TroyThe World of PicturesJose [place] 3381070 [facility] [id number] Neutrophils/100 WBC Auto (Bld) 49 % Normal [facility] Work Phone: Platelets #/vol (Bld) 246 {x10E3/uL} Normal 150-379 [facility] Work Phone: Comment on above: PATIENT WAS FASTINGP ERFORMED BY: Moodswing[address] [id number] BY: [facility] TroyThe World of PicturesJose [place] 3381070 [facility] [id number] Platelets (Bld) [#/Vol] 246 10*3/uL Normal 150-379 [facility] Internal Medicine Work Phone: Comment on above: PATIENT WAS FASTINGP ERFORMED BY: Moodswing[address] [id number] BY: JERI MoodswingGreystone Park Psychiatric HospitalBodmua0437 Cramer RoadWilson Medical Centerin [place] [id number] Platelets Auto #/vol (Bld) 246 {x10E3/uL} Normal 150-379 [facility] Work Phone: RBC #/vol (Bld) 4.78 {x10E6/uL} Normal 4.14-5.80 [facility] Internal Medicine Work Phone: Comment on above: PATIENT WAS FASTINGP ERFORMED BY: Moodswing[address] [id number] BY: JERI [employer] Xtpmfl25[address] [facility] [id number] RBC (Bld) [#/Vol] 4.78 10*6/uL Normal 4.14-5.80 [facility] Internal Medicine Work Phone: Comment on above: PATIENT WAS FASTINGP ERFORMED BY: Moodswing[address] [id number] BY: JERI MoodswingJose [place] 3381070 [address] [facility] [id number] RBC Auto #/vol (Bld) 4.78 {x10E6/uL} Normal 4.14-5.80 [facility] Internal Medicine Work Phone: WBC #/vol (Bld) 5.2 {x10E3/uL} Normal 3.4-10.8 [facility] Internal Medicine Work Phone: Comment on above: PATIENT WAS FASTINGP ERFORMED BY: [address] [id number] BY: [facility]6370 [facility] [id number] WBC (Bld) [#/Vol] 5.2 10*3/uL Normal 3.4-10.8 [facility] Internal Medicine Work Phone: Comment on above: PATIENT WAS FASTINGP ERFORMED BY: [employer] [id number] BY: [employer]6370 [facility] [id number] WBC Auto #/vol (Bld) 5.2 {x10E3/uL} Normal 3.4-10.8 [facility] Work Phone: LIPOPROTEIN, BLD, BY NMR (50 640)Ordered By: Hair Colorist on 11-02-2017 Cholesterol in HDL mass conc 51 mg/dL Normal [facility] Work Phone: Comment on above: PATIENT WAS FASTINGP ERFORMED BY: [employer] [id number] BY: [employer]70 [facility] [id number] Cholesterol in LDL mass conc 98 mg/dL Normal 0-99 [facility] Work Phone: Comment on above: . Optimal < 100 Abov e optimal 100 - 129 Borderline 130 - 159 High 160 - 189 Very high > 189 .LDL-C is inaccurate if patient is non-fasting. PATIENT WAS FASTINGP ERFORMED BY: [employer] [id number] BY: [employer]ify6370 [facility] [id number] Cholesterol mass conc 166 mg/dL Normal 100-199 [facility] prehensive Internal Medicine Work Phone: Comment on above: PATIENT WAS FASTINGP ERFORMED BY: Openb[employer] [address] [id number] BY: [employer] Xjsnvx0788 [facility] [id number] Lipoprotein insulin resistance score Score 66 1 Abnormal Comprehen [facility] Internal Medicine Work Phone: Comment on above: INSULIN RESISTANCE Yoanna BUSH <--Insulin Sensitive Insulin Resistant--> Percentile in Reference PopulationInsulin Resistance ScoreLP-IR Score Low 25th 50th 75th High <27 27 45 63 >63LP-IR Score is inaccurate if patient is non-fasting. .The LP-IR score is a laboratory developed index that has beenassociated with insulin resistance and diabetes risk and should beused as one component of a physician's clinical assessment. TheLP-IR score listed above has not been cleared by the [place] Food andDrug Administration. Lipoprotein.alpha molar conc 43.6 umol/L Normal [facility] Work Phone: Comment on above: PATIENT WAS FASTINGP ERFORMED BY: BN [facility] Cjsqnrihnx3671 [facility] [id number] BY: CB [facility] Nnmwzj2632 [facility] [id number] Lipoprotein.beta.subpa rticle Entitic length 21.1 nm Normal [facility] Internal Medicine Work Phone: Comment on above: INTERPRETATIVE INFORMATION PARTICLE CONCENTRATION AND SIZE <--Lower CVD Risk Higher CVD Risk--> LDL AND HDL PARTICLES Percentile in Reference Population HDL-P (total) High 75th 50th 25th Low >34.9 34.9 30.5 26.7 <26.7 . Small LDL-P Low 25th 50th 75th High <117 117 527 839 >839 . LDL Size <-Large (Pattern A)-> <-Small (Pattern B)-> 23.0 20.6 20.5 19.0 Small LDL-P and LDL Size are associated with CVD risk, but not afterLDL-P is taken into account. .These assays were developed and their performance characteristicsdetermined by [employer]. These assays have not been cleared by [place] Food and Drug Administration. The clinical utility of theselaboratory values have not been fully established. PATIENT WAS FASTINGP ERFORMED BY: LabCo[address] [id number] BY: [facility] Rxhvem4446 Cramer RoadDublin [place] [id number] Lipoprotein.beta.subpa rticle molar conc 1084 nmol/L Abnormal [facility] Work Phone: Comment on above: Low < 1000 Moderate 1000 - 1299 Borderline-High 1300 - 1599 High 1600 - 2000 Very High > 2000 PATIENT WAS FASTINGP ERFORMED BY: [facility] [address] [id number] BY: [facility] Urzbwc9768 [address] [facility] Hospitalblin [place] [id number] Lipoprotein.beta.subpa rticle.small molar conc 300 nmol/L Normal [facility] Work Phone: Comment on above: PATIENT WAS FASTINGP ERFORMED BY: LabThe World of Pictures[address] [id number] BY: [facility] Rstmde[address] [facility]in [place] [id number] Triglyceride mass conc 86 mg/dL Normal 0-149 Co mprehensive Internal Medicine Work Phone: Comment on above: PATIENT WAS FASTINGP ERFORMED BY: LabThe World of Pictures[address] [id number] BY: [facility] Ehvyhn59[address] [facility]in [place] [id number] METABOLIC PANEL, COMPREHENSI VE ([id number])Ordered By: Hair Colorist on 11-02-2017 Albumin mass conc 4.7 g/dL Normal 3.6-4.8 Compreh ensive Internal Medicine Work Phone: Comment on above: PATIENT WAS FASTINGP ERFORMED BY: LabCo[address] [id number] BY: [facility] Bedvjo[address] [facility]in [place] [id number] Albumin/Globulin mass ratio 2.1 {ratio} Normal 1.2-2.2 [facility] Work Phone: Comment on above: PATIENT WAS FASTINGP ERFORMED BY: Lab[address] [id number] BY: JERI [facility] Mfuosa5068 Cramer RoadDublin [place] [id number] ALP [Catalytic activity/Vol] 74 U/L Normal 39-117 [facility] Work Phone: Comment on above: PATIENT WAS FASTINGP ERFORMED BY: [facility] [address] [id number] BY: JERI [facility] Aducmm1299 Cramer RoadDublin [place] [id number] ALP enzyme act/vol 74 [iU]/L Normal 39-117 [facility] Internal Medicine Work Phone: Comment on above: PATIENT WAS FASTINGP ERFORMED BY: Lab[address] [id number] BY: JERI [facility] Jaeixj7397 Cramer RoadDublin [place] [id number] ALT [Catalytic activity/Vol] 15 U/L Normal 0-44 [facility] Work Phone: Comment on above: PATIENT WAS FASTINGP ERFORMED BY: LabCo[address] [id number] BY: [facility] Tckclu0132 Cramer RoadDublin [place] [id number] ALT enzyme act/vol 15 [iU]/L Normal 0-44 [facility] Internal Medicine Work Phone: Comment on above: PATIENT WAS FASTINGP ERFORMED BY: Lab[address] [id number] BY: [facility] Joyuvl8439 [address]ramer RoadDublin [place] [id number] AST [Catalytic activity/Vol] 20 U/L Normal 0-40 [facility] Work Phone: Comment on above: PATIENT WAS FASTINGP ERFORMED BY: LabCo[address] [id number] BY: JERI [facility] Dupygw6722 Cramer RoadDublin [place] [id number] AST enzyme act/vol 20 [iU]/L Normal 0-40 Compre hensive Internal Medicine Work Phone: Comment on above: PATIENT WAS FASTINGP ERFORMED BY: LabCo[address] [id number] BY: JERI [facility] Jqangt0249 Cramer RoadDublin [place] [id number] Bilirubin mass conc 0.8 mg/dL Normal 0.0-1.2 Compr ehensive Internal Medicine Work Phone: Comment on above: PATIENT WAS FASTINGP ERFORMED BY: Lab[address] [id number] BY: JERI [facility] Cliiqs4238 [address] RoadDublin [place] [id number] Calcium mass conc 9.6 mg/dL Normal 8.6-10.2 Compreh ensive Internal Medicine Work Phone: Comment on above: PATIENT WAS FASTINGP ERFORMED BY: [address] [id number] BY: LabCoGreystone Park Psychiatric HospitalCvqqkl0955 Cramer RoadDublin [place] [id number] Chloride molar conc 99 mmol/L Normal 96-106 Compr ensive Internal Medicine Work Phone: Comment on above: PATIENT WAS FASTINGP ERFORMED BY: Lab[address] [id number] BY: [facility]Co Lxarsf2487 Cramer RoadDublin [place] [id number] CO2 molar conc 24 mmol/L Normal 18-29 Comprehens deny Internal Medicine Work Phone: Comment on above: PATIENT WAS FASTINGP ERFORMED BY: [address] [id number] BY: [facility] Avebgs1411 Cramer RoadDublin [place] [id number] Creatinine mass conc 1.08 mg/dL Normal 0.76-1.27 Comp [facility] Work Phone: Comment on above: PATIENT WAS FASTINGP ERFORMED BY: SILVANO [facility] [address] [id number] BY: JERI LabCocarlos Beptnk9168 [facility] [id number] GFR/1.73 sq M predicted among blacks CKD-EPI vol rate/area (S/P/Bld) 82 mL/min/1.73 Normal [facility] Work Phone: Comment on above: PATIENT WAS FASTINGP ERFORMED BY: [facility] [address] [id number] BY: JERI LabCocarlos DavisZkyqpn8692 [facility] [id number] GFR/1.73 sq M predicted among non-blacks CKD-EPI vol rate/area (S/P/Bld) 71 mL/min/1.73 Normal Comprehensiv e Internal Medicine Work Phone: Comment on above: PATIENT WAS FASTINGP ERFORMED BY: SILVANO [facility] [address] [id number] BY: JERI LabSourav DavisUghugt8599 [facility] [id number] Globulin Calculated mass conc (S) 2.2 g/dL Normal 1.5-4.5 [facility] Work Phone: Globulin mass conc (S) 2.2 g/dL Normal 1.5-4.5 Co [facility]ive [facility] Work Phone: Comment on above: PATIENT WAS FASTINGP ERFORMED BY: LabCo[address] [id number] BY: JERI [facility] Sohrur4129 [facility] [id number] Glucose mass conc 87 mg/dL Normal 65-99 Compreh ensive Internal Medicine Work Phone: Comment on above: PATIENT WAS FASTINGP ERFORMED BY: LabCo[address] [id number] BY: CB [facility] Jvpjet1767 Cramer RoadDublin [place] [id number] Potassium molar conc 4.7 mmol/L Normal 3.5-5.2 Comp rehensive Internal Medicine Work Phone: Comment on above: PATIENT WAS FASTINGP ERFORMED BY: LabCo[address] [id number] BY: JERI [facility] Nsrxia7697 Cramer RoadDublin [place] [id number] Protein mass conc 6.9 g/dL Normal 6.0-8.5 Compreh ensive Internal Medicine Work Phone: Comment on above: PATIENT WAS FASTINGP ERFORMED BY: [address] [id number] BY: JERI [facility] Mlcrpe8216 Crmaer RoadDuin [place] [id number] Sodium molar conc 140 mmol/L Normal 134-144 Compreh ensive Internal Medicine Work Phone: Comment on above: PATIENT WAS FASTINGP ERFORMED BY: LabCo[address] [id number] BY: JERI [facility] Jberdp6564 Cramer RoadWilson Medical Centerin [place] [id number] Urea nitrogen mass conc 16 mg/dL Normal 8-27 [facility] Work Phone: Comment on above: PATIENT WAS FASTINGP ERFORMED BY: [place]Co[place] 392957 [facility] [id number] BY: [facility] Gtyjum0367 Cramer Roadblin [place] [id number] Urea nitrogen/Creatinine mass ratio 15 mg/mg Normal 10-24 [facility] Work Phone: Comment on above: PATIENT WAS FASTINGP ERFORMED BY: LabCo[address] [id number] BY: JERI [facility] Qonmnj3111 Cramer RoadDublin [place] [id number] MICROALBUMINOrdered By: Syst em Diesel Motor Mechanic on 11-02-2017 Albumin DL <= 20 mg/L (U) [Mass/Vol] mg/dL Normal [facility] Work Phone: Comment on above: PATIENT WAS FASTINGP ERFORMED BY: LabThe World of Pictures[address] [id number] BY: [facility] Rqoepv4875 Cramer RoadDublin [place] [id number] Albumin DL <= 20 mg/L mass conc (U) mg/dL Normal [facility] Work Phone: Comment on above: PATIENT WAS FASTINGP ERFORMED BY: LabThe World of Picturesrp [address] [id number] BY: [facility] Qixppu12[address] [facility] [place] [id number] Albumin/Creatinine mass ratio (U) <3.8 Normal 0.0-30.0 [facility] Work Phone: Comment on above: PATIENT WAS FASTINGP ERFORMED BY: Moodswing[address] [id number] BY: [facility] Rqpjzf3527 [address] [facility]in [place] [id number] Creatinine mass conc (U) 78.8 mg/dL Normal [facility] Work Phone: Comment on above: PATIENT WAS FASTINGP ERFORMED BY: Moodswing[address] [id number] BY: [facility] Bmxwia8085 [address] [facility]in [place] [id number] Microscopic ExaminationOrder ed By: Hair Colorist on 11-02-2017 Bacteria LM.HPF #/area (Urine sed) None seen Normal [facility] Work Phone: Comment on above: PATIENT WAS FASTINGP ERFORMED BY: Lab[address] [id number] BY: [facility] Btigji8768 Cra[address] [facility] ServicesDublin [place] [id number] Epithelial cells LM.HPF #/area (Urine sed) None seen Normal 0 - 10 [facility] Work Phone: Comment on above: PATIENT WAS FASTINGP ERFORMED BY: LabCo[address] [id number] BY: [facility] Hoayaw8907 Cramer RoadDublin [place] [id number] Mucus LM Ql (Urine sed) Present Normal [facility] Work Phone: Mucus Ql (Urine sed) Present Normal Comp rehensive Internal Medicine Work Phone: Comment on above: PATIENT WAS FASTINGP ERFORMED BY: Lab[address] [id number] BY: [facility] Wkymvh2360 Cramer RoadDublin [place] [id number] RBC LM.HPF #/area (Urine sed) 0-2 Normal 0 - 2 [facility] Work Phone: Comment on above: PATIENT WAS FASTINGP ERFORMED BY: Symphony Concierge[address] [id number] BY: LabCoGreystone Park Psychiatric HospitalUdgjmm2679 C[address] [facility] [id number] WBC LM.HPF #/area (Urine sed) 0-5 Normal 0 - 5 [facility] Work Phone: Comment on above: PATIENT WAS FASTINGP ERFORMED BY: Symphony Concierge[address] [id number] BY: LabCoGreystone Park Psychiatric HospitalUumxru6369 [address] [facility] [id number] TSH ([id number])Ordered By: Syste m Diesel Motor Mechanic on 11-02-2017 Thyrotropin Qn 5.250 {uIU/mL} Abnormal 0.450-4.500 Compr ensive Internal Medicine Work Phone: Comment on above: PATIENT WAS FASTINGP ERFORMED BY: Lab[address] [id number] BY: [facility] Jkxjbw1788 Cramer RoadDublin [place] [id number] URINALYSIS, W/ MICRO ([id number]) Ordered By: Hair Colorist on 11-02-2017 Appearance Nom (U) Clear Normal Compre hensive Internal Medicine Work Phone: Comment on above: PATIENT WAS FASTINGP ERFORMED BY: LabCo[address] [id number] BY: JERI [facility] Nmkkas7483 Cramer RoadDublin [place] [id number] Bilirubin Ql (U) Negative Normal Comprehe nsive Internal Medicine Work Phone: Comment on above: PATIENT WAS FASTINGP ERFORMED BY: [facility] [address] [id number] BY: JERI [facility] Vkgtfj3906 Cramer RoadDublin [place] [id number] Bilirubin Ql (U) Negative Normal Comprehe nsive Internal Medicine Work Phone: Comment on above: PATIENT WAS FASTINGP ERFORMED BY: Lab[address] [id number] BY: JERI [facility] Xkxnrb1047 Cramer RoadDublin [place] [id number] Color Nom (U) Yellow Normal Comprehensi ve Internal Medicine Work Phone: Comment on above: PATIENT WAS FASTINGP ERFORMED BY: Lab[address] [id number] BY: JERI [facility] Brsdbs2099 Cramer RoadDublin [place] [id number] Glucose Ql (U) Negative Normal Comprehens deny Internal Medicine Work Phone: Comment on above: PATIENT WAS FASTINGP ERFORMED BY: LabCo[address] [id number] BY: JERI [facility] Ziuatx9355 Cramer RoadDublin [place] [id number] Glucose Ql (U) Negative Normal Comprehens deny Internal Medicine Work Phone: Comment on above: PATIENT WAS FASTINGP ERFORMED BY: LabCo[address] [id number] BY: JERI [facility] Thjyuz5168 Cramer RoadDublin [place] [id number] Hemoglobin Ql (U) Negative Normal Compreh ensive Internal Medicine Work Phone: Comment on above: PATIENT WAS FASTINGP ERFORMED BY: [facility] [address] [id number] BY: JERI [facility] Cabkeo3188 Cramer RoadDublin [place] [id number] Hemoglobin Ql (U) Negative Normal Compreh ensive Internal Medicine Work Phone: Comment on above: PATIENT WAS FASTINGP ERFORMED BY: [facility] [address] [id number] BY: JERI [facility] Jppoyy2821 Cramer RoadDublin [place] [id number] Hemoglobin Test strip Ql (U) Negative Normal [facility] Work Phone: Ketones Ql (U) Negative Normal Comprehens deny Internal Medicine Work Phone: Comment on above: PATIENT WAS FASTINGP ERFORMED BY: [facility] [address] [id number] BY: JERI [facility] Cnzwqv8900 Cramer RoadDublin [place] [id number] Ketones Ql (U) Negative Normal Comprehens deny Internal Medicine Work Phone: Comment on above: PATIENT WAS FASTINGP ERFORMED BY: LabCo[address] [id number] BY: JERI [facility] Axhses3500 Cramer RoadDublin [place] [id number] Leukocyte esterase Test strip Ql (U) Negative Normal [facility] Work Phone: Comment on above: PATIENT WAS FASTINGP ERFORMED BY: [facility] [address] [id number] BY: JERI [facility] Dyzugu8831 Cramer RoadDublin [place] [id number] Leukocyte esterase Test strip Ql (U) Negative Normal [facility] Work Phone: Comment on above: PATIENT WAS FASTINGP ERFORMED BY: [facility] [address] [id number] BY: JERI [facility] Tvtcut2035 Cramer RoadDublin [place] [id number] Microscopic observation LM Nom (Urine sed) MICRON Normal [facility] Work Phone: Comment on above: Microscopic follows if indicated. PATIENT WAS FASTINGP ERFORMED BY: Lab[address] [id number] BY: JERI [facility] Ijioxi1778 Cramer RoadDublin [place] [id number] Microscopic observation LM Nom (Urine sed) See below: Normal [facility] Work Phone: Comment on above: Microscopic was alexandre cated and was performed. PATIENT WAS FASTINGP ERFORMED BY: Lab[address] [id number] BY: JERI [facility] Prnllg9135 Cramer RoadDublin [place] [id number] Nitrite Ql (U) Negative Normal Comprehens deny Internal Medicine Work Phone: Comment on above: PATIENT WAS FASTINGP ERFORMED BY: Lab[address] [id number] BY: JERI [facility] Pqgnbs7219 Cramer RoadDublin [place] [id number] Nitrite Ql (U) Negative Normal Comprehens deny Internal Medicine Work Phone: Comment on above: PATIENT WAS FASTINGP ERFORMED BY: Lab[address] [id number] BY: [facility] Xtkyva0193 [address] RoadDublin [place] [id number] Nitrite Test strip Ql (U) Negative Normal [facility] Work Phone: pH (U) 7.0 [pH] Normal 5.0-7.5 [facility] Work Phone: Comment on above: PATIENT WAS FASTINGP ERFORMED BY: [address] [id number] BY: [facility] Xcpmbi9565 C[address] RoadDublin [place] [id number] pH Test strip (U) 7.0 [pH] Normal 5.0-7.5 Compreh ensive Internal Medicine Work Phone: Protein Ql (U) Negative Normal Comprehens deny Internal Medicine Work Phone: Comment on above: PATIENT WAS FASTINGP ERFORMED BY: Moodswing[address] [id number] BY: LabThe World of Pictures Ccaqxx5717 Cramer RoadDublin [place] [id number] Protein Ql (U) Negative Normal Comprehens deny Internal Medicine Work Phone: Comment on above: PATIENT WAS FASTINGP ERFORMED BY: Moodswing[address] [id number] BY: JERI [facility] Bzlrya5754 C[address] RoadDublin [place] [id number] Protein Test strip Ql (U) Negative Normal [facility] Work Phone: Specific gravity Relative Density (U) 1.020 1 Normal 1.005-1.030 Comprehensi ve Internal Medicine Work Phone: Comment on above: PATIENT WAS FASTINGP ERFORMED BY: Moodswing[address] [id number] BY: LabThe World of Pictures Rhhzsa3332 Cramer RoadDublin [place] [id number] Urobilinogen (U) [Mass/Vol] 0.2 mg/dL Normal 0.2-1.0 [facility] Work Phone: Comment on above: PATIENT WAS FASTINGP ERFORMED BY: Moodswing[address] [id number] BY: LabThe World of Pictures Apvcoe7845 C[address] RoadDublin [place] [id number] Urobilinogen Test strip mass conc (U) 0.2 mg/dL Normal 0.2-1.0 Comprehensiv e Internal Medicine Work Phone: Comment on above: PATIENT WAS FASTINGP ERFORMED BY: Moodswing[address] [id number] BY: JERI [facility] Rfzenp5308 [facility] [id number] Lab Report: Lipid Profileon 07-05-2017 Cholesterol 146 mg/dL Normal [facility] Work Phone: Comment on above: <200 mg/dL Desirable 200-240 mg/dL Borderline >240 mg/dL High Risk Order Date: 07/04/16 Order Info: 0788-1 - *Hepatic Function PanelOrder Info: 76662-4 - *Lipid Profile CC PCPComments: 6 monthsComments: [facility] [address]rbiwbgq[address] [place], [address] HDL Cholesterol 63 mg/dL Normal [facility] eart Group Work Phone: Comment on above: The drugs N-Acetylcy steine and Metamizole may falselydepress this assay. Reference Range HDL <40 mg/dL Low HDL Cholesterol HDL >or= 60 mg/dL High HDL Cholesterol Order Date: 07/04/16 Order Info: 0788-1 - *Hepatic Function PanelOrder Info: 94418-7 - *Lipid Profile CC PCPComments: 6 monthsComments: [facility] Avfyvtumhr01[address] [place], [place], [id number] LDL Cholesterol 64 mg/dL Normal 0-130 [facility] eart Group Work Phone: Comment on above: Order Date: 07/04/16 Order Info: 0788-1 - *Hepatic Function PanelOrder Info: 16271-7 - *Lipid Profile CC PCPComments: 6 monthsComments: 6 months[facility] Pyxivwlopz8[address] [place], [address] Triglyceride 94 mg/dL Normal [facility] Work Phone: Comment on above: The drugs N-Acetylcy steine and Metamizole may falselydepress this assay.Serum Triglycerides Reference Interval Normal <150 mg/dL Borderline high 150 - 199 mg/dL High 200 - 499 mg/dL Very High > or = 500 mg/dL Order Date: 07/04/16 Order Info: 0788-1 - *Hepatic Function PanelOrder Info: 75776-4 - *Lipid Profile CC PCPComments: 6 monthsComments: [facility] Vwhywuopxh[address] [place], [address] very low density lipoproteins 19 mg/dL Invalid Interpretation Code 5-40 [facility] Work Phone: Lab Report: Liver Profileon 07-05-2017 Alanine aminotransferase (ALT) 25 U/L Normal 12-78 [place] [facility] Work Phone: Comment on above: Order Date: 07/04/16 Order Info: 0788-1 - *Hepatic Function PanelOrder Info: 97277-2 - *Lipid Profile CC PCPComments: 6 monthsComments: [facility] Efmubobqpp[address] [place], [id number] Albumin 4.1 g/dL Normal 3.4-5.0 [facility] Work Phone: Comment on above: Please note revised Albumin AND Globulin reference rangeeffective 2017. Order Date: 07/04/16 Order Info: 0788-1 - *Hepatic Function PanelOrder Info: 67795-5 - *Lipid Profile CC PCPComments: 6 monthsComments: [facility] Behjuyytpi[address] [place], [address]12241 Alkaline phosphatase (ALP) 84 U/L Normal 45-117 [facility] Work Phone: Comment on above: Order Date: 07/04/16 Order Info: 0788-1 - *Hepatic Function PanelOrder Info: 54774-5 - *Lipid Profile CC PCPComments: 6 monthsComments: 6 [facility]WL[facility] Rhmimhutpk9[address] [place], [id number] Aspartate aminotransferase (AST) 21 U/L Normal 15-37 [place] [facility] Work Phone: Comment on above: Order Date: 07/04/16 Order Info: 0788-1 - *Hepatic Function PanelOrder Info: 39420-9 - *Lipid Profile CC PCPComments: 6 monthsComments: 6 [facility]WL[facility] Gikocsahry[address] [place], [id number] Bilirubin (direct) 0.12 mg/dL Normal 0.00-0.30 [facility] Work Phone: Comment on above: Order Date: 07/04/16 Order Info: 0788-1 - *Hepatic Function PanelOrder Info: 87838-9 - *Lipid Profile CC PCPComments: 6 monthsComments: 6 [facility] Rspaqvqmsv9[address] [place], [id number] Bilirubin (total) 0.70 mg/dL Normal 0.20-1.00 [facility] Work Phone: Comment on above: Order Date: 07/04/16 Order Info: 0788-1 - *Hepatic Function PanelOrder Info: 94785-8 - *Lipid Profile CC PCPComments: 6 monthsComments: 6 [facility]WL[facility] Wpjwvqbctq12[address] [place], [place], [id number] Globulin 3.5 g/dL Normal 2.2-4.2 [facility] Work Phone: Protein 7.6 g/dL Normal 6.4-8.2 [facility] Work Phone: Comment on above: Order Date: 07/04/16 Order Info: 0788-1 - *Hepatic Function PanelOrder Info: 41090-7 - *Lipid Profile CC PCPComments: 6 monthsComments: 6 [facility] Yegcovspec45[address] [place], [place], [address] Lipid ProfileOrdered By: Em tem Diesel Motor Mechanic on 07-05-2017 Cholesterol in LDL mass conc 64 mg/dL Normal 0-130 [facility] Work Phone: Cholesterol in VLDL mass conc 19 mg/dL Normal 5-40 [facility] Work Phone: Comment on above: Order Date: 07/04/16 Order Info: 0788-1 - *Hepatic Function PanelOrder Info: 65231-0 - *Lipid Profile CC PCPComments: 6 monthsComments: 6 [facility]WL[facility] Yorlovftwb[address] [place], [address]50[address] Liver ProfileOrdered By: Em tem Diesel Motor Mechanic on 07-05-2017 Globulin mass conc (S) 3.5 g/dL Normal 2.2-4.2 Co mprehensive Internal Medicine Work Phone: Comment on above: Order Date: 07/04/16 Order Info: 0788-1 - *Hepatic Function PanelOrder Info: 21302-8 - *Lipid Profile CC PCPComments: 6 monthsComments: [facility] Tsvkcckzau[address] [place], [address] Office Visiton 12-29-2016 Dietary management education, guidance, and counseling (procedure) yes Invalid Interpretation Code [facility] Work Phone: Documentation of current medications (procedure) Done Invalid Interpretation Code [facility] Work Phone: Fall risk assessment No Invalid Interpretation Code [facility] Work Phone: Protein mass conc Done [facility] Work Phone: Replaced Document: [place] CG Observationson 12-29-2016 EKG QRS axis 16 deg [facility] Work Phone: electrocardiogram interpretation Sinus Rhythm WITHIN NORMAL LIMITS Invalid Interpretation Code [facility] Work Phone: GE use only - for LinkLogic import when terms are not otherwise specified 392 ms Invalid Interpretation Code [facility] Work Phone: Interpretation Sinus Rhythm WITHIN NORMAL LIMITS [facility] Work Phone: P [place] 42 deg [facility] Work Phone: P wave axis, electrocardiogram 42 deg Invalid Interpretation Code [facility] Work Phone: DC Interval 206 ms [facility] Work Phone: DC interval, electrocardiogram 206 ms Invalid Interpretation Code [facility] Work Phone: Pulse (Heart Rate) 60 /min Invalid Interpretation Code [facility] Work Phone: QRS axis, electrocardiogram 16 deg Invalid Interpretation Code [facility] Work Phone: QRS Duration 94 ms [facility] Work Phone: QRS duration, electrocardiogram 94 ms Invalid Interpretation Code [facility] Work Phone: QT Interval new path ms [facility] Work Phone: QT interval, electrocardiogram new path ms Invalid Interpretation Code [facility] Work Phone: QTc Yuan 392 ms [facility] Work Phone: T [place] 36 deg [facility] Work Phone: T wave axis, electrocardiogram 36 deg Invalid Interpretation Code [place] [facility] Work Phone: Lab Report: Lipid Profileon 12-17-2016 Cholesterol 134 mg/dL Normal [facility] Work Phone: Comment on above: <200 mg/dL Desirable 200-240 mg/dL Borderline >240 mg/dL High Risk Order Date: 07/01/16 Order Info: 0788-1 - *Hepatic Function PanelOrder Date: 07/01/16Order Info: 48836-7 - *Lipid Profile CC PCPComments: 12 hours fasting, may have water.[facility] Swrttolsfl[address] [place], [address] HDL Cholesterol 55 mg/dL Normal [facility] Work Phone: Comment on above: The drugs N-Acetylcy steine and Metamizole may falsely deressthis assay. Reference Range HDL <40 mg/dL Low HDL Cholesterol HDL >or= 60 mg/dL High HDL Cholesterol Order Date: 07/01/16 Order Info: 0788-1 - *Hepatic Function PanelOrder Date: 07/01/16Order Info: 48960-3 - *Lipid Profile CC PCPComments: 12 hours fasting, may have water.[facility] [address] [place], [place], [address] LDL Cholesterol 67 mg/dL Normal 0-130 [facility] Work Phone: Comment on above: Order Date: 07/01/16 Order Info: 0788-1 - *Hepatic Function PanelOrder Date: 07/01/16Order Info: 05997-1 - *Lipid Profile CC PCPComments: 12 hours fasting, may have water.[facility] Iwfiiatbn[address] [place], [place], [address] Triglyceride 62 mg/dL Normal [facility] Work Phone: Comment on above: The drugs N-Acetylcy steine and Metamizole may falsely deressthis assay.Serum Triglycerides Reference Interval Normal <150 mg/dL Borderline high 150 - 199 mg/dL High 200 - 499 mg/dL Very High > or = 500 mg/dL Order Date: 07/01/16 Order Info: 0788-1 - *Hepatic Function PanelOrder Date: 07/01/16Order Info: 34227-9 - *Lipid Profile CC PCPComments: 12 hours fasting, may have water.[facility] [address] [place], [place], [address] very low density lipoproteins 12 mg/dL 5-40 [facility] Work Phone: Lab Report: Liver Profileon 12-17-2016 Alanine aminotransferase (ALT) 23 U/L Normal 12-78 [facility] Work Phone: Comment on above: Order Date: 07/01/16 Order Info: 0788-1 - *Hepatic Function PanelOrder Date: 07/01/16Order Info: 64796-5 - *Lipid Profile CC PCPComments: 12 hours fasting, may have water.[facility] Qdkvyncr[address] [place], [place], [address] Albumin 3.9 g/dL Normal 3.4-5.0 [facility] Work Phone: Comment on above: Order Date: 07/01/16 Order Info: 0788-1 - *Hepatic Function PanelOrder Date: 07/01/16Order Info: 00622-9 - *Lipid Profile CC PCPComments: 12 hours fasting, may have water.[facility] [address] [place], [place], [address] Alkaline phosphatase (ALP) 76 U/L Normal 45-117 [facility] Work Phone: Comment on above: Order Date: 07/01/16 Order Info: 0788-1 - *Hepatic Function PanelOrder Date: 07/01/16Order Info: 90594-6 - *Lipid Profile CC PCPComments: 12 hours fasting, may have water.[facility] [address]ex[address] [place], [address] Aspartate aminotransferase (AST) 19 U/L Normal 15-37 [facility] eart Group Work Phone: Comment on above: Order Date: 07/01/16 Order Info: 0788-1 - *Hepatic Function PanelOrder Date: 07/01/16Order Info: 98501-2 - *Lipid Profile CC PCPComments: 12 hours fasting, may have water.[facility] [address] [place], [address] Bilirubin (direct) 0.18 mg/dL Normal 0.00-0.30 [facility] Work Phone: Comment on above: Order Date: 07/01/16 Order Info: 0788-1 - *Hepatic Function PanelOrder Date: 07/01/16Order Info: 66941-4 - *Lipid Profile CC PCPComments: 12 hours fasting, may have water.[facility] [address] [place], [address] Bilirubin (total) 0.80 mg/dL Normal 0.20-1.00 [facility] Work Phone: Comment on above: Order Date: 07/01/16 Order Info: 0788-1 - *Hepatic Function PanelOrder Date: 07/01/16Order Info: 02910-8 - *Lipid Profile CC PCPComments: 12 hours fasting, may have water.[facility] [address] [place], [address] Globulin 3.2 g/dL Normal 2.3-3.5 [facility] Work Phone: Protein 7.1 g/dL Normal 6.4-8.2 [facility] Work Phone: Comment on above: Order Date: 07/01/16 Order Info: [id number] - *Hepatic Function PanelOrder Date: 07/01/16Order Info: [id number] - *Lipid Profile CC PCPComments: 12 hours fasting, may have water.[facility] [address] [place], [address] ALP (Bld) [Catalytic activity/Vol] 76 U/L 45-117 [facility] Work Phone: Lipid ProfileOrdered By: PaintZens tem Diesel Motor Mechanic on 12-17-2016 Cholesterol in LDL mass conc 67 mg/dL Normal 0-130 [facility] Work Phone: Cholesterol in VLDL mass conc 12 mg/dL Normal 5-40 [facility] Work Phone: Comment on above: Order Date: 07/01/16 Order Info: [id number] - *Hepatic Function PanelOrder Date: 07/01/16Order Info: [id number] - *Lipid Profile CC PCPComments: 12 hours fasting, may have water.[facility] [address] [place], [place], [address] Liver ProfileOrdered By: [employer] Diesel Motor Mechanic on 12-17-2016 Globulin (S) [Mass/Vol] 3.2 g/dL Normal 2.3-3.5 [facility] Work Phone: Comment on above: Order Date: 07/01/16 Order Info: [id number] - *Hepatic Function PanelOrder Date: 07/01/16Order Info: [id number] - *Lipid Profile CC PCPComments: 12 hours fasting, may have water.[facility] [address] [place], [address] Office Visiton 07-04-2016 Dietary management education, guidance, and counseling (procedure) yes Invalid Interpretation Code [facility] Work Phone: Documentation of current medications (procedure) Done Invalid Interpretation Code [facility] Work Phone: Tobacco smoking status NHIS Tobacco smoking status MNIS Invalid Interpretation Code [facility] Work Phone: Tobacco smoking status [facility] Never smoker [facility] Work Phone: Tobacco use [facility] Never smoker Invalid Interpretation Code [facility] Work Phone: Clinical Lists Update: 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 Reference Range HDL <40 mg/dL Low HDL Cholesterol HDL >or= 60 mg/dL High HDL Cholesterol Order Date: 06/24/16 Order Info: [id number] - *Hepatic Function PanelOrder Date: 06/24/16Order Info: [id number] - *Lipid Profile CC PCPComments: 12 hours fasting, may have water.[facility] [address] [place], [place], [address] Cholesterol in LDL mass conc 91 mg/dL Normal 0-130 [facility] Work Phone: Cholesterol in LDL mass conc 91 mg/dL Normal 0-130 [facility] Work Phone: Comment on above: Order Date: 06/24/16 Order Info: [id number] - *Hepatic Function PanelOrder Date: 06/24/16Order Info: [id number] - *Lipid Profile CC PCPComments: 12 hours fasting, may have water.[facility] [address] [place], [place], [address] Cholesterol in VLDL mass conc 14 mg/dL Normal 5-40 [facility] Work Phone: Comment on above: Order Date: 06/24/16 Order Info: [id number] - *Hepatic Function PanelOrder Date: 06/24/16Order Info: [id number] - *Lipid Profile CC PCPComments: 12 hours fasting, may have water.[facility] [address] [place], [place], [address] Cholesterol mass conc 164 mg/dL Normal Com [facility] Work Phone: Comment on above: <200 mg/dL Desirable 200-240 mg/dL Borderline >240 mg/dL High Risk Order Date: 06/24/16 Order Info: [id number] - *Hepatic Function PanelOrder Date: 06/24/16Order Info: [id number] - *Lipid Profile CC PCPComments: 12 hours fasting, may have water.[facility] [address] [place], [place], [address] Triglyceride mass conc 71 mg/dL Normal Co [facility] Work Phone: Comment on above: The drugs N-Acetylcy steine and Metamizole may falsely deressthis assay.Serum Triglycerides Reference Interval Normal <150 mg/dL Borderline high 150 - 199 mg/dL High 200 - 499 mg/dL Very High > or = 500 mg/dL Order Date: 06/24/16 Order Info: [id number] - *Hepatic Function PanelOrder Date: 06/24/16Order Info: [id number] - *Lipid Profile CC PCPComments: 12 hours fasting, may have water.[facility] [address] [place], [place], [phone] Liver ProfileOrdered By: Em tem Diesel Motor Mechanic on 07-01-2016 Albumin mass conc 4.0 g/dL Normal 3.4-5.0 [facility] Work Phone: Comment on above: Order Date: 06/24/16 Order Info: [id number] - *Hepatic Function PanelOrder Date: 06/24/16Order Info: [id number] - *Lipid Profile CC PCPComments: 12 hours fasting, may have water.[facility] [address] [place], [place], [phone] ALP enzyme act/vol 80 U/L Normal 45-117 [facility] Work Phone: Comment on above: Order Date: 06/24/16 Order Info: [id number] - *Hepatic Function PanelOrder Date: 06/24/16Order Info: [id number] - *Lipid Profile CC PCPComments: 12 hours fasting, may have water.[facility] [address] [place], [phone] ALT enzyme act/vol 23 U/L Normal 12-78 [facility] Work Phone: Comment on above: Order Date: 06/24/16 Order Info: [id number] - *Hepatic Function PanelOrder Date: 06/24/16Order Info: [id number] - *Lipid Profile CC PCPComments: 12 hours fasting, may have water.[facility] [address] [place], [phone] AST enzyme act/vol 20 U/L Normal 15-37 [facility] Work Phone: Comment on above: Order Date: 06/24/16 Order Info: [id number] - *Hepatic Function PanelOrder Date: 06/24/16Order Info: [id number] - *Lipid Profile CC PCPComments: 12 hours fasting, may have water.[facility] [address] [place], [address] Bilirubin mass conc 0.90 mg/dL Normal 0.20-1.00 [facility] Internal Medicine Work Phone: Comment on above: Order Date: 06/24/16 Order Info: [id number] - *Hepatic Function PanelOrder Date: 06/24/16Order Info: [id number] - *Lipid Profile CC PCPComments: 12 hours fasting, may have water.[facility] [address] [place], [phone] Bilirubin.direct mass conc 0.21 mg/dL Normal 0.00-0.30 [facility] Work Phone: Comment on above: Order Date: 06/24/16 Order Info: [id number] - *Hepatic Function PanelOrder Date: 06/24/16Order Info: [id number] - *Lipid Profile CC PCPComments: 12 hours fasting, may have water.[facility] [address] [place], [address] Globulin Calculated mass conc (S) 3.4 g/dL Normal 2.3-3.5 [facility] Work Phone: Globulin mass conc (S) 3.4 g/dL Normal 2.3-3.5 [facility] Work Phone: Comment on above: Order Date: 06/24/16 Order Info: [id number] - *Hepatic Function PanelOrder Date: 06/24/16Order Info: [id number] - *Lipid Profile CC PCPComments: 12 hours fasting, may have water.[facility] [address] [place], [address] Protein mass conc 7.4 g/dL Normal 6.4-8.2 [facility] Work Phone: Comment on above: Order Date: 06/24/16 Order Info: [id number] - *Hepatic Function PanelOrder Date: 06/24/16Order Info: [id number] - *Lipid Profile CC PCPComments: 12 hours fasting, may have water.[facility] [address] [place], [place], [phone] Basic Metabolic Profile (BMP )Ordered By: Hair Colorist on 12-24-2015 Basic metabolic 2000 panel 108 mmol/L Abnormal 98-107 [facility] Work Phone: Comment on above: 'TROP' Serial specim en #1, #2, #3, or #4: [address] [place] [address] [place], [place], [phone] Basic metabolic 2000 panel 4 1 Abnormal 5-15 [facility] Work Phone: Comment on above: 'TROP' Serial specim en #1, #2, #3, or #4: [address] [place] [address] [place], [place], [phone] Basic metabolic 2000 panel 3.8 mmol/L Normal 3.5-5.1 [facility] Work Phone: Comment on above: 'TROP' Serial specim en #1, #2, #3, or #4: [address] [place] [address] [place], [address] Basic metabolic 2000 panel 66.04 ml/min Normal [facility] Work Phone: Comment on above: 'TROP' Serial specim en #1, #2, #3, or #4: [address] [place] [address] [place], [place], [address] Basic metabolic 2000 panel 138 mmol/L Normal 136-145 [facility] Work Phone: Comment on above: 'TROP' Serial specim en #1, #2, #3, or #4: [address] [place] [address] [place], [place], [address] Basic metabolic 2000 panel 8.5 mg/dL Normal 8.5-10.1 [facility] Work Phone: Comment on above: 'TROP' Serial specim en #1, #2, #3, or #4: [address] [place] [address] [place], [address] Basic metabolic 2000 panel 14.2 {RATIO} Normal 10-20 [facility] Work Phone: Comment on above: 'TROP' Serial specim en #1, #2, #3, or #4: [address] [place] [address] [place], [address] Basic metabolic 2000 panel 92 mg/dL Normal 70-110 [facility] Work Phone: Comment on above: 'TROP' Serial specim en #1, #2, #3, or #4: [address] [place] [address] [place], [address] Basic metabolic 2000 panel 84 mL/min Normal [facility] Work Phone: Comment on above: GFR Calc 'TROP' Serial specim en #1, #2, #3, or #4: [address] [place] [address] [place], [place], [address] Basic metabolic 2000 panel 69 mL/min Normal [facility] Work Phone: Comment on above: Non- GFR Calc 'TROP' Serial specim en #1, #2, #3, or #4: [address] [place] [address] [place], [place], [phone] Basic metabolic 2000 panel 1.13 mg/dL Normal 0.70-1.30 [facility] Work Phone: Comment on above: The validity of the calculated GFR AND GFRAA in patients over70 years has not been determined. Clinical correlation isessential. 'TROP' Serial specim en #1, #2, #3, or #4: [address] [place] [address] [place], [place], [phone] Basic metabolic 2000 panel 26.0 mmol/L Normal 21.0-32.0 [facility] Work Phone: Comment on above: 'TROP' Serial specim en #1, #2, #3, or #4: [address] [place] [address] [place], [address] Basic metabolic 2000 panel 16 mg/dL Normal 7-18 [facility] Work Phone: Comment on above: 'TROP' Serial specim en #1, #2, #3, or #4: [address] [place] [address] [place], [place], [phone] CBC W/Diff, AutomatedOrdered By: Hair Colorist on 12-24-2015 Absolute Lymph 1.75 {X10_3/ul} Normal 0.83-4.51 [facility]pr e[facility] Work Phone: Absolute Neut 2.9 {X10_3/uL} Normal 2.0-7.7 Compreh ens[facility] Work Phone: Comment on above: [facility] [address] [place], [address] Basophils/100 WBC (Bld) 0.5 % Normal 0-1 [facility] Work Phone: Comment on above: [facility] [address] [place], [address] Basophils/100 WBC Auto (Bld) 0.5 % Normal 0-1 [facility] Work Phone: Eosinophils/100 WBC (Bld) 4.8 % Normal 0-5 [facility] Work Phone: Comment on above: [facility] [address] [place], [address] Eosinophils/100 WBC Auto (Bld) 4.8 % Normal 0-5 [facility] Work Phone: Erythrocyte distribution width Auto Ratio (RBC) 12.6 % Normal 11.6-14.6 [facility] Work Phone: Erythrocyte distribution width Ratio (RBC) 12.6 % Normal 11.6-14.6 [facility] Work Phone: Comment on above: [place] [address] [place], [address] Hematocrit Auto Volume Fraction (Bld) 42.9 % Normal 40-54 [facility] Work Phone: Hematocrit Volume Fraction (Bld) 42.9 % Normal 40-54 [facility] Work Phone: Comment on above: [place] [address] [place], [address] Hemoglobin mass conc (Bld) 14.5 g/dL Normal 13.0-16.5 [facility] Work Phone: Comment on above: [place] [address] [place], [address] IM GRAN % 0.200 % Normal 0.0-0.9 [facility] Work Phone: Comment on above: IG% - Immature Granu locytes (promyelocytes, myelocytes andmetamyelocytes) > 1% indicates that a LEFT SHIFT is Present. [facility] [address] [place], [place], [phone] Lymphocytes #/vol (Bld) 1.75 {X10_3/ul} Normal 0.83-4.51 [facility] Work Phone: Comment on above: [facility] [address] [place], [address] Lymphocytes Auto #/vol (Bld) 1.75 {X10_3/ul} Normal 0.83-4.51 [facility] Work Phone: Lymphocytes/100 WBC (Bld) 31.4 % Normal 19-41 [facility] Work Phone: Comment on above: [facility] [address] [place], [place], [phone] Lymphocytes/100 WBC Auto (Bld) 31.4 % Normal 19-41 [facility] Work Phone: MCH Auto Entitic mass (RBC) 31.5 pg Normal 27.0-32.0 [facility] Work Phone: MCH Entitic mass (RBC) 31.5 pg Normal 27.0-32.0 [facility] Work Phone: Comment on above: [facility] [address] [place], [place], [phone] MCHC Auto mass conc (RBC) 33.8 {g/gl} Normal 32-36 [facility] Work Phone: MCHC mass conc (RBC) 33.8 {g/gl} Normal 32-36 [facility] prehensive [facility] Medicine Work Phone: Comment on above: [facility] [address] [place], [place], [phone] MCV Auto Entitic volume (RBC) 93.1 fL Normal 80-94 [facility] Work Phone: MCV Entitic volume (RBC) 93.1 fL Normal 80-94 [facility] Work Phone: Comment on above: [facility] [address] [place], [address] Monocytes/100 WBC Auto (Bld) 11.0 % Abnormal 0-10 [facility] Work Phone: Comment on above: [facility] [address] [place], [address] Neutrophils/100 WBC (Bld) 52.1 % Normal 47-70 [facility] Work Phone: Comment on above: [facility] [address] [place], [address] Neutrophils/100 WBC Auto (Bld) 52.1 % Normal 47-70 [facility] Work Phone: Platelet mean volume Auto Entitic volume (Bld) 10.1 fL Normal 6.2-12.0 [facility] Work Phone: Platelet mean volume Entitic volume (Bld) 10.1 fL Normal 6.2-12.0 Compre[facility]si [facility] Work Phone: Comment on above: [facility] [address] [place], [address] Platelets #/vol (Bld) 258 10*3/uL Normal 150-450 [email or web address] Work Phone: Comment on above: [facility] [address] [place], [address] Platelets Auto #/vol (Bld) 258 10*3/uL Normal 150-450 [facility] Work Phone: RBC #/vol (Bld) 4.61 {M/mm3} Normal 4.6-6.2 Compreh ensive [facility] Work Phone: Comment on above: [facility] [address] [place], [address] RBC Auto #/vol (Bld) 4.61 {M/mm3} Normal 4.6-6.2 Co [facility] Work Phone: RDW SD 42.0 fL Normal 35.1-43.9 [facility] Work Phone: Comment on above: [facility] [address] [place], [address] WBC #/vol (Bld) 5.6 10*3/uL Normal 4.4-11.0 Comprehe nsive [facility] Work Phone: Comment on above: [facility] [address] [place], [address] WBC Auto #/vol (Bld) 5.6 10*3/uL Normal 4.4-11.0 Com prehensive [facility] Work Phone: Partial Thromboplast TimeOrd ered By: Hair Colorist on 12-24-2015 aPTT Coag time (Bld) 31.2 s Normal 24.1-36.2 Comp rehensive [facility] Work Phone: aPTT Coag time (PPP) 31.2 s Normal 24.1-36.2 Comp rehensive [facility] Work Phone: Comment on above: [facility] [address] [place], [address] Prothrombin Time w/INROrdere d By: Hair Colorist on 12-24-2015 INR Coag RelTime (PPP) 1.0 {INR} Normal [facility] Work Phone: Comment on above: [facility] [address] [place], [address] Prothrombin time (PT) Coag time (PPP) 13.0 s Normal 11.7-14.9 [facility] Internal [facility] Work Phone: Comment on above: [facility] [address] [place], [address] Thyroid Stim Hormone (TSH)Or dered By: Hair Colorist on 12-24-2015 Thyrotropin Qn 4.14 {uIU/mL} Abnormal 0.358-3.74 Compreh ensive [facility] Work Phone: Comment on above: 'TROP' Serial specim en #1, #2, #3, or #4: [address] [place] [address] [place], [address] Troponin-IOrdered By: Hair Colorist on 12-24-2015 Troponin I.cardiac mass conc ng/mL Normal [facility] Work Phone: Comment on above: TROPONIN-I EXPECTED VALUES <0.05 NEGATIVE 0.06 - 0.59 AT RISK OF [place] > OR = 0.60 SUGGEST [place] 'TROP' Serial specim en #1, #2, #3, or #4: [address] [place] [address] [place], [address] Lipid ProfileOrdered By: Em tem Diesel Motor Mechanic on 10-27-2015 Cholesterol in HDL mass conc 57 mg/dL Normal [facility] Work Phone: Comment on above: Reference Range HDL <40 mg/dL Low HDL Cholesterol HDL >or= 60 mg/dL High HDL Cholesterol [facility] [address] [place], [address] Cholesterol in LDL mass conc 73 mg/dL Normal 0-130 [facility] Work Phone: Cholesterol in LDL mass conc 73 mg/dL Normal 0-130 [facility] Work Phone: Comment on above: [facility] [address] [place], [address] Cholesterol in VLDL mass conc 16 mg/dL Normal 5-40 [facility] Work Phone: Comment on above: [facility] [address] [place], [address] Cholesterol mass conc 146 mg/dL Normal Com prehensive [facility] Work Phone: Comment on above: <200 mg/dL Desirable 200-240 mg/dL Borderline >240 mg/dL High Risk [facility] [address] [place], [place], [phone] Triglyceride mass conc 78 mg/dL Normal Co [email or web address]] Internal Medicine Work Phone: Comment on above: Serum Triglycerides Reference Interval Normal <150 mg/dL Borderline high 150 - 199 mg/dL High 200 - 499 mg/dL Very High > or = 500 mg/dL [facility] [address] [place], [place], [address] Liver ProfileOrdered By: Em tem Diesel Motor Mechanic on 10-27-2015 Albumin mass conc 3.9 g/dL Normal 3.4-5.0 [facility] Internal Medicine Work Phone: Comment on above: [facility] [address] [place], [place], [phone] ALP enzyme act/vol 80 U/L Normal 50-136 [facility] Internal Medicine Work Phone: Comment on above: [facility] [address] [place], [place], [address] ALT enzyme act/vol 22 U/L Normal 12-78 [facility] Internal Medicine Work Phone: Comment on above: [facility] [address] [place], [place], [address] AST enzyme act/vol 16 U/L Normal 15-37 [facility] Internal Medicine Work Phone: Comment on above: [facility] [address] [place], [place], [address] Bilirubin mass conc 0.50 mg/dL Normal 0.20-1.00 [facility] Internal Medicine Work Phone: Comment on above: [facility] [address] [place], [place], [address] Bilirubin.direct mass conc 0.11 mg/dL Normal 0.00-0.30 [facility] Work Phone: Comment on above: [facility] [address] [place], [place], [id number] Globulin Calculated mass conc (S) 3.4 g/dL Normal 2.3-3.5 [facility] Work Phone: Globulin mass conc (S) 3.4 g/dL Normal 2.3-3.5 [facility] [[email or web address] Internal Medicine Work Phone: Comment on above: [facility] [address] [place], [place], [phone] Protein mass conc 7.3 g/dL Normal 6.4-8.2 [facility] Internal Medicine Work Phone: Comment on above: [facility] [address] [place], [place], [phone] PSA (PROSTATE SPECIFIC ANTIG EN) ([id number])Ordered By: Hair Colorist on 10-02-2015 Prostate specific Ag mass conc 0.8 ng/mL Normal 0.0-4.0 [facility] Internal Medicine Work Phone: Comment on above: Horace ECLIA methodol ogy. .According to the [employer], Serum PSA shoulddecrease and remain at undetectable levels after radicalprostatectomy. The AUA defines biochemical recurrence as an initialPSA value 0.2 ng/mL or greater followed by a subsequent confirmatoryPSA value 0.2 ng/mL or greater.Values obtained with different assay methods or kits cannot be usedinterchangeably. Results cannot be interpreted as absolute evidenceof the presence or absence of malignant disease. PATIENT NOT FASTINGP ERFORMED BY: [email or web address] Extremis TechnologySelect [facility] [id number] TSH ([id number])Ordered By: [employer]ree[employer] Diesel Motor Mechanic on 10-02-2015 Thyrotropin Qn 7.780 {uIU/mL} Abnormal 0.450-4.500 [facility] Internal Medicine Work Phone: Comment on above: PATIENT NOT FASTINGP ERFORMED BY: i.am.plus electronicsSelect Specialty Hospital [facility] [id number] Information: [id number] Basic Metabolic Profile (BMP )Ordered By: Hair Colorist on 03-23-2015 Basic metabolic 2000 panel 9.1 mg/dL Normal 8.5-10.1 [facility] Work Phone: Comment on above: Test performed at:[facility] [address] [place] [address] Basic metabolic 2000 panel 64 mL/min Normal [facility] Work Phone: Comment on above: Test performed at:[facility] [address] [place] [address] Basic metabolic 2000 panel 9.0 {RATIO} Abnormal 10-20 [facility] Work Phone: Comment on above: Test performed at:[facility] [address] [place] [address] Basic metabolic 2000 panel 1.22 mg/dL Normal 0.70-1.30 [facility] Work Phone: Comment on above: Please note revised CREATININE reference range oklvdieyy17/22/2015. Test performed at:[facility] [address] [place] [address] Basic metabolic 2000 panel 98 mg/dL Normal 70-110 [facility] Work Phone: Comment on above: Test performed at:[facility] [address] [place] [address] Basic metabolic 2000 panel 102 mmol/L Normal 98-107 [facility] Work Phone: Comment on above: Test performed at:[facility] [address] [place] [address] Basic metabolic 2000 panel 78 mL/min Normal [facility] Work Phone: Comment on above: Test performed at:[facility] [address] [place] [address] Basic metabolic 2000 panel 137 mmol/L Normal 136-145 [facility] Work Phone: Comment on above: Test performed at:[facility] [address] [place], [place] [id number] Basic metabolic 2000 panel 11 mg/dL Normal 7-18 [facility] Work Phone: Comment on above: Test performed at:[facility] [address] [place], [place] [id number] Basic metabolic 2000 panel 30.0 mmol/L Normal 21.0-32.0 [facility] Work Phone: Comment on above: Test performed at:[facility] [address] [place] [address] Basic metabolic 2000 panel 4.1 mmol/L Normal 3.5-5.1 [facility] Work Phone: Comment on above: Test performed at:[facility] [address] [place] [address] Basic metabolic 2000 panel 5 1 Normal 5-15 [facility] Work Phone: Comment on above: Test performed at:[facility] [address] [place] [address] CBC-Complete Blood Cnt No Di ffOrdered By: Hair Colorist on 03-23-2015 Erythrocyte distribution width (RBC) [Ratio] 12.6 % Normal 11.6-14.6 [facility] Work Phone: Comment on above: Test performed at:[facility] [address] [place] [address] Hematocrit (Bld) [Volume fraction] 45.4 % Normal 40-54 [facility] Work Phone: Comment on above: Test performed at:[facility] [address] [place] [address] MCH (RBC) [Entitic mass] 31.7 pg Normal 27.0-32.0 [facility] Work Phone: Comment on above: Test performed at:[facility] [address] [place], [place] [id number] MCHC Auto mass conc (RBC) 33.9 {g/gl} Normal 32-36 [facility] Work Phone: MCHC mass conc (RBC) 33.9 {g/gl} Normal 32-36 Com [facility] Work Phone: Comment on above: Test performed at:[facility] [address] [place] [address] MCV (RBC) [Entitic vol] 93.4 fL Normal 80-94 [facility] Work Phone: Comment on above: Test performed at:[facility] [address] [place] [address] Platelet mean volume (Bld) [Entitic vol] 9.8 fL Normal 6.2-12.0 [facility] Work Phone: Comment on above: Test performed at:[facility] [address] [place] [address] Platelet mean volume Auto Entitic volume (Bld) 9.8 fL Normal 6.2-12.0 [facility] Work Phone: Platelets #/vol (Bld) 244 10*3/uL Normal 150-450 [facility] Work Phone: Comment on above: Test performed at:[facility] [address] [place] [address] Platelets Auto #/vol (Bld) 244 10*3/uL Normal 150-450 [facility] Work Phone: RBC #/vol (Bld) 4.86 {M/mm3} Normal 4.6-6.2 Compre[facility] Work Phone: Comment on above: Test performed at:[facility] [address] [place] [address] RBC Auto #/vol (Bld) 4.86 {M/mm3} Normal 4.6-6.2 Co [facility] Work Phone: RDW SD 42.9 fL Normal 35.1-43.9 [facility] Work Phone: WBC (Bld) [#/Vol] 6.3 10*3/uL Normal 4.4-11.0 [facility] Work Phone: Comment on above: Test performed at:[facility] [address] [place] [address] CBC-Complete Blood Cnt No Diff 42.9 fL Normal 35.1-43.9 [facility] Work Phone: Comment on above: Test performed at:[facility] [address] [place] [address] Lab Report: Basic Metabolic Profile (BMP)on 03-23-2015 Anion gap 5 mmol/L Invalid Interpretation Code 5-15 [facility] Work Phone: Anion gap [Moles/Vol] 5 mmol/L 5-15 [facility] Work Phone: BUN/Creatinine Ratio 9.0 RATIO Low 10-[address] [facility] Work Phone: Calcium 9.1 mg/dL Invalid Interpretation Code 8.5-10.1 [facility] Work Phone: Chloride 102 mmol/L Invalid Interpretation Code 98-107 [facility] Work Phone: CO2 30.0 mmol/L Invalid Interpretation Code 21.0-32.0 [facility] Work Phone: CO2 (BldV) [Partial pressure] 30.0 mmol/L 21.0-32.0 [facility] Work Phone: Creatinine 1.22 mg/dL Invalid Interpretation Code 0.70-1.30 [facility] Work Phone: eGFR (non-black) 78 mL/min/{1.73_m2} Invalid Interpretation Code >60 [facility] Work Phone: eGFR (non-black) 64 mL/min/{1.73_m2} Invalid Interpretation Code >60 [facility] Work Phone: EST GFR - AA 78 mL/min >60 [facility] Work Phone: Glucose 98 mg/dL Invalid Interpretation Code 70-110 [facility] Work Phone: Glucose [Mass/Vol] 98 mg/dL 70-110 [facility] Work Phone: Potassium 4.1 mmol/L Invalid Interpretation Code 3.5-5.1 [facility] Work Phone: Sodium 137 mmol/L Invalid Interpretation Code 136-145 [facility] Work Phone: Urea nitrogen 11 mg/dL Invalid Interpretation Code 7-18 [facility] Work Phone: Lab Report: CBC-Complete Blo od Cnt No Diffon 03-23-2015 Erythrocyte distribution width (RBC) [Ratio] 42.9 fL 35.1-43.9 [facility] Work Phone: Erythrocytes (RBC) 4.86 10*6/uL Invalid Interpretation Code 4.6-6.2 [facility] Work Phone: MCHC 33.9 G/GL Invalid Interpretation Code 32-36 [facility] Work Phone: MCHC (RBC) [Mass/Vol] 33.9 G/GL 32-36 [facility] Work Phone: Platelets 244 10*3/mm3 Invalid Interpretation Code 150-450 [facility] Work Phone: Platelets (Bld) [#/Vol] 244 10*3/mm3 150-450 [facility] Work Phone: PMV by Mariela 9.8 fL Invalid Interpretation Code 6.2-12.0 [facility] Work Phone: RBC (Bld) [#/Vol] 4.86 10*6/uL 4.6-6.2 [facility] Work Phone: red blood cell distribution width, size density 42.9 fL Invalid Interpretation Code 35.1-43.9 [facility] Work Phone: Hematocrit (HCT) 45.4 % Normal 40-54 [facility] Work Phone: Hemoglobin (HGB) 15.4 g/dL Normal 13.0-16.5 [facility] Work Phone: Comment on above: Test performed at:[facility] [address] [place] [address] MCH 31.7 pg Normal 27.0-32.0 [facility] Work Phone: MCV 93.4 fL Normal 80-94 [facility] Work Phone: RDW-CA 12.6 % Normal 11.6-14.6 [facility] Work Phone: WBC (Leukocytes) 6.3 10*3/uL Normal 4.4-11.0 [facility] Work Phone: Lab Report: Partial Thrombop last Timeon 03-23-2015 aPTT 30.0 s Normal 24.1-36.2 [facility] Work Phone: Lab Report: Prothrombin Time w/INRon 03-23-2015 INR in blood by coagulation 1.0 {INR} Invalid Interpretation Code [facility] Work Phone: Coagulation tissue factor induced in platelet poor plasma 13.3 s Normal 11.7-14.9 [facility] Work Phone: Comment on above: Test performed at:[facility] [address] [place] [address] Partial Thromboplast TimeOrd ered By: Hair Colorist on 03-23-2015 aPTT Coag time (PPP) 30.0 s Normal 24.1-36.2 [facility] Work Phone: Comment on above: Test performed at:[facility] [address] [place] [address] Prothrombin Time w/INROrdere d By: Hair Colorist on 03-23-2015 INR Coag (PPP) [Relative time] 1.0 {INR} Normal [facility] Work Phone: Comment on above: Test performed at:[facility] [address] [place], [place] [id number] Lipid ProfileOrdered By: Sys tem Diesel Motor Mechanic on 03-12-2015 Cholesterol in HDL mass conc 54 mg/dL Normal [facility] Work Phone: Comment on above: Reference Range HDL <40 mg/dL Low HDL Cholesterol HDL >or= 60 mg/dL High HDL Cholesterol Test performed at:[facility] [address] [place] [address] Cholesterol in LDL mass conc 115 mg/dL Normal 0-130 [facility] Work Phone: Cholesterol in LDL mass conc 115 mg/dL Normal 0-130 [facility] Work Phone: Comment on above: Test performed at:[facility] [address] [place] [address] Cholesterol in VLDL mass conc 19 mg/dL Normal 5-40 [facility] Work Phone: Comment on above: Test performed at:[facility] [address] [place] [address] Cholesterol mass conc 188 mg/dL Normal Com [facility] Work Phone: Comment on above: <200 mg/dL Desirable 200-240 mg/dL Borderline >240 mg/dL High Risk Test performed at:[facility] [address] [place] [address] Triglyceride mass conc 95 mg/dL Normal [facility] Work Phone: Comment on above: Serum Triglycerides Reference Interval Normal <150 mg/dL Borderline high 150 - 199 mg/dL High 200 - 499 mg/dL Very High > or = 500 mg/dL Test performed at:[facility] [address] [place], [place] [address] Liver ProfileOrdered By: PaintZens tem Diesel Motor Mechanic on 03-12-2015 Albumin mass conc 3.9 g/dL Normal 3.4-5.0 [facility] Work Phone: Comment on above: Test performed at:[facility] [address] [place], [place] [address](227) ALP enzyme act/vol 79 U/L Normal 50-136 [facility] Work Phone: Comment on above: Test performed at:[facility] [address] [place] [address] ALT enzyme act/vol 23 U/L Normal 12-78 [facility] Work Phone: Comment on above: Test performed at:[facility] [address] [place] [address] AST enzyme act/vol 22 U/L Normal 15-37 [facility] Work Phone: Comment on above: Test performed at:[facility] [address] [place], [place] [phone] Bilirubin mass conc 0.60 mg/dL Normal 0.20-1.00 [facility] Work Phone: Comment on above: Test performed at:[facility] [address] [place] [address] Bilirubin.direct mass conc 0.12 mg/dL Normal 0.00-0.30 [facility] Work Phone: Comment on above: Test performed at:[facility] [address] [place] [address] Globulin Calculated mass conc (S) 3.5 g/dL Normal 2.3-3.5 [facility] Work Phone: Globulin mass conc (S) 3.5 g/dL Normal 2.3-3.5 [facility] Work Phone: Comment on above: Test performed at:[facility] [address] [place], [place] [address] Protein mass conc 7.4 g/dL Normal 6.4-8.2 Compreh [facility] Work Phone: Comment on above: Test performed at:[facility] [address] [place] [address] Office Visiton 03-06-2015 cardiac risk group C Invalid Interpretation Code [facility] Work Phone: General cardiovascular disease 10Y risk [#] [place].D'Agostino N/A Invalid Interpretation Code [facility] Work Phone: Replaced Document: Midmark E CG Observationson 03-06-2015 electrocardiogram interpretation Sinus Rhythm WITHIN NORMAL LIMITS Invalid Interpretation Code [facility] Work Phone: GE use only - for LinkLogic import when terms are not otherwise specified 400 ms Invalid Interpretation Code [facility] Work Phone: P wave axis, electrocardiogram 32 deg Invalid Interpretation Code [facility] Work Phone: DC interval, electrocardiogram 196 ms Invalid Interpretation Code [facility] Work Phone: Pulse (Heart Rate) 60 /min Invalid Interpretation Code [facility] Work Phone: QRS axis, electrocardiogram 13 deg Invalid Interpretation Code [facility] Work Phone: QRS duration, electrocardiogram 99 ms Invalid Interpretation Code [facility] Work Phone: QT interval, electrocardiogram new path ms Invalid Interpretation Code [facility] Work Phone: T wave axis, electrocardiogram 33 deg Invalid Interpretation Code [facility] Work Phone: EFRAIN CULTURE-OTHER ([id number])Ord ered By: Hair Colorist on 05-27-2014 Bacteria identified Respiratory culture Nom (Unsp spec) RRF Normal [facility] Work Phone: Comment on above: Routine respiratory tomas PATIENT NOT FASTINGP ERFORMED BY: JERI [facility] Fwnmtl0082 [facility] [id number] Information: SRC:THRT Bacteria identified Respiratory culture Nom (Unsp spec) Final report Normal [facility] Work Phone: Comment on above: PATIENT NOT FASTINGP ERFORMED BY: JERI [facility] [id number] Information: SRC:THRT Rapid Strep Test, Office ([phone])on 05-27-2014 S. pyogenes Ag EIA Ql (Throat) Negative Normal [facility] Work Phone: Comment on above: neg Rapid Strep Test, Office ([phone])Ordered By: Carlee Arechiga on 05-27-2014 S. pyogenes Ag IA Ql (Unsp spec) Negative Normal [facility] Work Phone: Comment on above: neg CBC (Auto) ([id number])Ordered By : Hair Colorist on 12-26-2013 Erythrocyte distribution width Auto Ratio (RBC) 13.0 % Normal 12.3-15.4 [facility] Work Phone: Erythrocyte distribution width Ratio (RBC) 13.0 % Normal 12.3-15.4 [facility] Work Phone: Comment on above: PATIENT WAS FASTINGP ERFORMED BY: JERI [facility] [id number] Hematocrit Auto Volume Fraction (Bld) 44.3 % Normal 37.5-51.0 [facility] Work Phone: Hematocrit Volume Fraction (Bld) 44.3 % Normal 37.5-51.0 [facility] Work Phone: Comment on above: PATIENT WAS FASTINGP ERFORMED BY: [employer] LabThe World of Picturesrp Ididcw6456 [facility] [id number] Hemoglobin mass conc (Bld) 15.2 g/dL Normal 12.6-17.7 [facility] Work Phone: Comment on above: PATIENT WAS FASTINGP ERFORMED BY: [employer] [facility] Rfugbl4652 [facility] [id number] MCH Auto Entitic mass (RBC) 31.1 pg Normal 26.6-33.0 [facility] Work Phone: MCH Entitic mass (RBC) 31.1 pg Normal 26.6-33.0 [facility] Work Phone: Comment on above: PATIENT WAS FASTINGP ERFORMED BY: JERI [facility] Ffdmcp2830 [address] RoadDublin [place] [id number] MCHC Auto mass conc (RBC) 34.3 g/dL Normal 31.5-35.7 [facility] Work Phone: MCHC mass conc (RBC) 34.3 g/dL Normal 31.5-35.7 [facility] Work Phone: Comment on above: PATIENT WAS FASTINGP ERFORMED BY: JERI [facility] Fxeudi8274 [address] RoadDuin [place] [id number] MCV Auto Entitic volume (RBC) 91 fL Normal 79-97 [facility] Work Phone: MCV Entitic volume (RBC) 91 fL Normal 79-97 [facility] Work Phone: Comment on above: PATIENT WAS FASTINGP ERFORMED BY: JERI [facility] Wpdssp5786 [address] RoadDuin [place] [id number] Platelets #/vol (Bld) 255 {x10E3/uL} Normal 155-379 [facility] Work Phone: Comment on above: Effective January 06, 2014, the reference interval for Platelets will be changing for 13 years and older to: 150 - 379 PATIENT WAS FASTINGP ERFORMED BY: JERI [facility] Erwurt2826 [address] RoadDublin [place] [id number] Platelets (Bld) [#/Vol] 255 10*3/uL Normal 155-379 [facility] Work Phone: Comment on above: Effective January 06, 2014, the reference interval for Platelets will be changing for 13 years and older to: 150 - 379 PATIENT WAS FASTINGP ERFORMED BY: JERI [facility] I[address]ifpm98[address] RoadDublin [place] [id number] Platelets Auto #/vol (Bld) 255 {x10E3/uL} Normal 155-379 [facility] Work Phone: Comment on above: Effective January 06, 2014, the reference interval for Platelets will be changing for 13 years and older to: 150 - 379 RBC #/vol (Bld) 4.89 {x10E6/uL} Normal 4.14-5.80 [facility] Work Phone: Comment on above: PATIENT WAS FASTINGP ERFORMED BY: [facility] Kqmafz8873 [facility] [id number] RBC (Bld) [#/Vol] 4.89 10*6/uL Normal 4.14-5.80 [facility] Internal [facility] Work Phone: Comment on above: PATIENT WAS FASTINGP ERFORMED BY: [facility] Wiiqsw6968 [facility] [id number] RBC Auto #/vol (Bld) 4.89 {x10E6/uL} Normal 4.14-5.80 [facility] Work Phone: WBC #/vol (Bld) 5.3 {x10E3/uL} Normal 3.4-10.8 [facility] Work Phone: Comment on above: PATIENT WAS FASTINGP ERFORMED BY: [facility] Byrgwn9432 [facility] [id number] WBC (Bld) [#/Vol] 5.3 10*3/uL Normal 3.4-10.8 [facility] Medicine Work Phone: Comment on above: PATIENT WAS FASTINGP ERFORMED BY: [facility] Sfchje9858 [facility] [id number] WBC Auto #/vol (Bld) 5.3 {x10E3/uL} Normal 3.4-10.8 [facility] Work Phone: LIPID PANEL ([id number])Ordered B y: Hair Colorist on 12-26-2013 Cholesterol in HDL mass conc 60 mg/dL Normal [facility] Work Phone: Comment on above: According to ATP-III Guidelines, HDL-C >59 mg/dL is considered anegative risk factor for CHD. copy to Dr. chris canseco; PATIENT WAS FASTINGPERFORMED BY: [facility] Qwtzvj4551 [address] RoadDublin [place] [id number] Cholesterol in LDL mass conc 81 mg/dL Normal 0-99 [facility] Work Phone: Comment on above: copy to Dr. chris canseco; PATIENT WAS FASTINGPERFORMED BY: CB [facility] Hrrkfc9[address] RoadDublin [place] [id number] Cholesterol in LDL/Cholesterol in HDL mass ratio 1.4 {ratio_units} Normal 0.0-3.6 [facility] Work Phone: Comment on above: copy to Dr. chris canseco; PATIENT WAS FASTINGPERFORMED BY: CB [facility] Uvnitx0344 [address] RoadDublin [place] [id number] Cholesterol in VLDL mass conc 15 mg/dL Normal 5-40 [facility] Work Phone: Comment on above: copy to Dr. chris canseco; PATIENT WAS FASTINGPERFORMED BY: CB [facility] Wacoyy6066 Crma[address] RoadDublin [place] [id number] Cholesterol mass conc 156 mg/dL Normal 100-199 Com prehens[facility] Work Phone: Comment on above: copy to Dr. chris canseco; PATIENT WAS FASTINGPERFORMED BY: CB [facility] Gaaowu7538 [address] RoadDublin [place] [id number] Triglyceride mass conc 74 mg/dL Normal 0-149 Co [facility] Work Phone: Comment on above: copy to Dr. chris canseco; PATIENT WAS FASTINGPERFORMED BY: CB [facility] Mhedte2674 [address] RoadDublin [place] [id number] METABOLIC PANEL, COMPREHENSI VE ([id number])Ordered By: Hair Colorist on 12-26-2013 Albumin mass conc 4.4 g/dL Normal 3.6-4.8 Compreh ensive [facility] Work Phone: Comment on above: PATIENT WAS FASTINGP ERFORMED BY: CB [facility] Lcsrha6554 [address] RoadDublin [place] [id number] Information: [id number] CC:[id number] 1 Albumin/Globulin mass ratio 1.9 {ratio} Normal 1.1-2.5 [facility] Work Phone: Comment on above: PATIENT WAS FASTINGP ERFORMED BY: [facility] Ukekog[address] [facility]bl[facility] [place] [id number] Information: [id number] CC:[id number] 1 ALP [Catalytic activity/Vol] 82 U/L Normal 39-117 [facility] Work Phone: Comment on above: PATIENT WAS FASTINGP ERFORMED BY: [facility] Kqcngg[address] [facility] [place] [id number] Information: [id number] CC:[id number] 1 ALP enzyme act/vol 82 [iU]/L Normal 39-117 [facility] Internal Medicine Work Phone: Comment on above: PATIENT WAS FASTINGP ERFORMED BY: LabCoGreystone Park Psychiatric HospitalRqlhdb2234 [facility] [id number] Information: [id number] CC:[id number] 1 ALT [Catalytic activity/Vol] 15 U/L Normal 0-44 [facility] Work Phone: Comment on above: PATIENT WAS FASTINGP ERFORMED BY: [facility] Rifsgx[address] [facility] [id number] Information: [id number] CC:[id number] 1 ALT enzyme act/vol 15 [iU]/L Normal 0-44 [facility] Internal Medicine Work Phone: Comment on above: PATIENT WAS FASTINGP ERFORMED BY: [facility] Pjurzl[address] [facility]in [place] [id number] Information: [id number] CC:[id number] 1 AST [Catalytic activity/Vol] 25 U/L Normal 0-40 [facility] Work Phone: Comment on above: PATIENT WAS FASTINGP ERFORMED BY: [facility] Rykvwc[address] [facility] Hospitalin [place] [id number] Information: [id number] CC:[id number] 1 AST enzyme act/vol 25 [iU]/L Normal 0-40 Compre [facility] Work Phone: Comment on above: PATIENT WAS FASTINGP ERFORMED BY: JERI Jeff Vbqlaq1592 [facility] [id number] Information: [id number] CC:[id number] 1 Bilirubin mass conc 0.5 mg/dL Normal 0.0-1.2 Compr ensive [facility] Medicine Work Phone: Comment on above: PATIENT WAS FASTINGP ERFORMED BY: JERI LabCoGreystone Park Psychiatric HospitalMniokb5209 [facility] [id number] Information: [id number] CC:[id number] 1 Calcium mass conc 9.8 mg/dL Normal 8.6-10.2 Compreh [facility] Work Phone: Comment on above: PATIENT WAS FASTINGP ERFORMED BY: JERI [facility]6370 [facility] [id number] Information: [id number] CC:[id number] 1 Chloride molar conc 101 mmol/L Normal 97-108 Compr ensive [facility] Medicine Work Phone: Comment on above: PATIENT WAS FASTINGP ERFORMED BY: JERI Tomer Hisbzp4552 [facility] [id number] Information: [id number] CC:[id number] 1 CO2 molar conc 23 mmol/L Normal 19-28 Comprehens [facility] Work Phone: Comment on above: Effective January 06, 2014, the reference interval for Carbon Dioxide, Total will be changing to: 0 - 30 days 15 - 27 31 d - 5 months 15 - 26 6 m - 11 months 15 - 25 1 - 12 years 17 - 27 > 12 years 18 - 29 PATIENT WAS FASTINGP ERFORMED BY: JERI [facility]Tr[facility]6370 [facility] [id number] Information: [id number] CC:[id number] 1 Creatinine mass conc 1.06 mg/dL Normal 0.76-1.27 Comp [facility]ensive [facility] Work Phone: Comment on above: PATIENT WAS FASTINGP ERFORMED BY: JERI [facility]Cap[facility] Bppxqc7792 [facility] [id number] Information: [id number] CC:[id number] 1 GFR/1.73 sq M predicted among blacks CKD-EPI vol rate/area (S/P/Bld) 87 mL/min/1.73 Normal [facility] Work Phone: Comment on above: PATIENT WAS FASTINGP ERFORMED BY: [facility] Eaaeca5387 [facility] [id number] Information: [id number] CC:[id number] 1 GFR/1.73 sq M predicted among non-blacks CKD-EPI vol rate/area (S/P/Bld) 75 mL/min/1.73 Normal Comprehensiv e Internal Medicine Work Phone: Comment on above: PATIENT WAS FASTINGP ERFORMED BY: [address] [id number] Information: [id number] CC:[id number] 1 Globulin Calculated mass conc (S) 2.3 g/dL Normal 1.5-4.5 [facility] Work Phone: Globulin mass conc (S) 2.3 g/dL Normal 1.5-4.5 [facility]eren[facility] Work Phone: Comment on above: PATIENT WAS FASTINGP ERFORMED BY: [place] 2964370 [facility] [id number] Information: [id number] CC:[id number] 1 Glucose mass conc 83 mg/dL Normal 65-99 Compreh ensive [facility] Medicine Work Phone: Comment on above: PATIENT WAS FASTINGP ERFORMED BY: [facility]6370 [facility] [id number] Information: [id number] CC:[id number] 1 Potassium molar conc 4.4 mmol/L Normal 3.5-5.2 Comp [facility] campusensive [facility] Work Phone: Comment on above: PATIENT WAS FASTINGP ERFORMED BY: JERI [facility] Wxudvz9926 [facility] [id number] Information: [id number] CC:[id number] 1 Protein mass conc 6.7 g/dL Normal 6.0-8.5 Compreh ensive Internal Medicine Work Phone: Comment on above: PATIENT WAS FASTINGP ERFORMED BY: JERI LabCoGreystone Park Psychiatric HospitalOlvkqq4710 [facility] [id number] Information: [id number] CC:[id number] 1 Sodium molar conc 140 mmol/L Normal 134-144 Compreh ensive Internal Medicine Work Phone: Comment on above: PATIENT WAS FASTINGP ERFORMED BY: JERI LabCo Qakagd5093 [facility] [id number] Information: [id number] CC:[id number] 1 Urea nitrogen mass conc 14 mg/dL Normal 8-27 [facility] Work Phone: Comment on above: PATIENT WAS FASTINGP ERFORMED BY: JERI LabCoGreystone Park Psychiatric HospitalFioxix6709 [facility] [id number] Information: [id number] CC:[id number] 1 Urea nitrogen/Creatinine mass ratio 13 mg/mg Normal 10-22 [facility] Work Phone: Comment on above: PATIENT WAS FASTINGP ERFORMED BY: JERI LabCo Xlbguz9059 [facility] [id number] Information: [id number] CC:[id number] 1 Microscopic ExaminationOrder ed By: Hair Colorist on 12-26-2013 Bacteria LM.HPF #/area (Urine sed) None seen Normal [facility] Work Phone: Comment on above: PATIENT WAS FASTINGP ERFORMED BY: JERI LabCo Ygxawk1905 [facility] [id number] Epithelial cells LM.HPF #/area (Urine sed) None seen Normal 0 - 10 [facility] Work Phone: Comment on above: PATIENT WAS FASTINGP ERFORMED BY: CB [facility] Jyqtiz4772 [address] RoadDublin [place] [id number] Mucus LM Ql (Urine sed) Present Normal [facility] Work Phone: Mucus Ql (Urine sed) Present Normal Comp rehensive Internal Medicine Work Phone: Comment on above: PATIENT WAS FASTINGP ERFORMED BY: CB [facility] Evngus8783 Cramer RoadDublin [place] [id number] RBC LM.HPF #/area (Urine sed) None seen Normal 0 - 2 [facility] Work Phone: Comment on above: Please note refere nce interval change PATIENT WAS FASTINGP ERFORMED BY: CB [facility] Hrpjjt2470 Cramer RoadDublin [place] [id number] WBC LM.HPF #/area (Urine sed) 0-5 Normal 0 - 5 [facility] Work Phone: Comment on above: PATIENT WAS FASTINGP ERFORMED BY: CB [facility] Fuvxfu2690 [address]ramer RoadDublin [place] [id number] TSH ([id number])Ordered By: Breezeplaye m Diesel Motor Mechanic on 12-26-2013 Thyrotropin Qn 7.790 {uIU/mL} Abnormal 0.450-4.500 Compr ehensive Internal Medicine Work Phone: Comment on above: PATIENT WAS FASTINGP ERFORMED BY: CB [facility] Wgrsfa1814 [address]ramer RoadDublin [place] [id number] Thyrotropin Qn TSHA Normal Comprehens deny Internal Medicine Work Phone: Comment on above: The [employer]ocrine Societ y recommends against routine treatment forpatients with elevated TSH levels below 10.000 uIU/mL if free T4 orT4 are normal. Thyroid function should be monitored at 6 to 12month intervals. Women who are or hope to become in the near future deserve special consideration. PATIENT WAS FASTINGP ERFORMED BY: CB [facility] Llclvq5390 Cramer RoadDublin [place] [id number] URINALYSIS, W/ MICRO ([id number]) Ordered By: Hair Colorist on 12-26-2013 Appearance Nom (U) Clear Normal Compre hensive Internal Medicine Work Phone: Comment on above: PATIENT WAS FASTINGP ERFORMED BY: JERI Davislin6370 [address] RoadDublin [place] [id number] Bilirubin Ql (U) Negative Normal Comprehe nsive Internal Medicine Work Phone: Comment on above: PATIENT WAS FASTINGP ERFORMED BY: JERI LabSourav DavisRulaki1249 [address] RoadDublin [place] [id number] Bilirubin Ql (U) Negative Normal Comprehe nsive Internal Medicine Work Phone: Comment on above: PATIENT WAS FASTINGP ERFORMED BY: JERI LabSourav DavisNktctk0973 Cramer RoadDublin [place] [id number] Color Nom (U) Yellow Normal Comprehensi ve Internal Medicine Work Phone: Comment on above: PATIENT WAS FASTINGP ERFORMED BY: JERI Davislin6370 [address] RoadDublin [place] [id number] Glucose Ql (U) Negative Normal Comprehens deny Internal Medicine Work Phone: Comment on above: PATIENT WAS FASTINGP ERFORMED BY: JERI Davislin6[address]Dublin [place] [id number] Glucose Ql (U) Negative Normal Comprehens deny Internal Medicine Work Phone: Comment on above: PATIENT WAS FASTINGP ERFORMED BY: JERI Davislin6[address]Dublin [place] [id number] Hemoglobin Ql (U) Negative Normal Compreh ensive Internal Medicine Work Phone: Comment on above: PATIENT WAS FASTINGP ERFORMED BY: JERI LabSourav DavisAaunha6875 [address] RoadDublin [place] [id number] Hemoglobin Ql (U) Negative Normal Compreh ensive Internal Medicine Work Phone: Comment on above: PATIENT WAS FASTINGP ERFORMED BY: JERI LabSourav DavisJgaion6299 [address] RoadDublin [place] [id number] Hemoglobin Test strip Ql (U) Negative Normal [facility] Work Phone: Ketones Ql (U) Negative Normal Comprehens deny Internal Medicine Work Phone: Comment on above: PATIENT WAS FASTINGP ERFORMED BY: JERI [facility] Xshdfv7470 [address] RoadDublin [place] [id number] Ketones Ql (U) Negative Normal Comprehens deny Internal Medicine Work Phone: Comment on above: PATIENT WAS FASTINGP ERFORMED BY: JERI [facility] Opisqd1895 [address] RoadDublin [place] [id number] Leukocyte esterase Test strip Ql (U) Negative Normal [facility] Work Phone: Comment on above: PATIENT WAS FASTINGP ERFORMED BY: JERI LabCocarlos DavisEeqegb5337 [address] RoadDublin [place] [id number] Leukocyte esterase Test strip Ql (U) Negative Normal [facility] Work Phone: Comment on above: PATIENT WAS FASTINGP ERFORMED BY: JERI Davislin6[address]Dublin [place] [id number] Microscopic observation LM Nom (Urine sed) MICRON Normal [facility] Work Phone: Comment on above: Microscopic follows if indicated. PATIENT WAS FASTINGP ERFORMED BY: JERI LabSourav DavisIsklav6355 [address] RoadDublin [place] [id number] Microscopic observation LM Nom (Urine sed) See below: Normal [facility] Work Phone: Comment on above: PATIENT WAS FASTINGP ERFORMED BY: JERI Davislin6[address]Dublin [place] [id number] Nitrite Ql (U) Negative Normal Comprehens deny Internal Medicine Work Phone: Comment on above: PATIENT WAS FASTINGP ERFORMED BY: JERI [facility] Kzhnoo3467 [address] RoadDublin [place] [id number] Nitrite Ql (U) Negative Normal Comprehens deny Internal Medicine Work Phone: Comment on above: PATIENT WAS FASTINGP ERFORMED BY: JERI [facility] Kzdbtv7268 [address] RoadDublin [place] [id number] Nitrite Test strip Ql (U) Negative Normal [facility] Work Phone: pH (U) 6.0 [pH] Normal 5.0-7.5 [facility] Work Phone: Comment on above: PATIENT WAS FASTINGP ERFORMED BY: JERI LabSourav DavisArbrrl7087 C[address] RoadDublin [place] [id number] pH Test strip (U) 6.0 [pH] Normal 5.0-7.5 Compreh ensive Internal Medicine Work Phone: Protein Ql (U) Negative Normal Comprehens dney Internal Medicine Work Phone: Comment on above: PATIENT WAS FASTINGP ERFORMED BY: JERI Davislin6[address]Dublin [place] [id number] Protein Ql (U) Negative Normal Comprehens deny Internal Medicine Work Phone: Comment on above: PATIENT WAS FASTINGP ERFORMED BY: JERI Davislin6[address]Dublin [place] [id number] Protein Test strip Ql (U) Negative Normal [facility] Work Phone: Specific gravity Relative Density (U) 1.015 1 Normal 1.005-1.030 Comprehensi ve Internal Medicine Work Phone: Comment on above: PATIENT WAS FASTINGP ERFORMED BY: JERI Velásquez6370 [address] Roadblin [place] [id number] Urobilinogen (U) [Mass/Vol] 0.2 mg/dL Normal 0.0-1.9 [facility] Work Phone: Comment on above: PATIENT WAS FASTINGP ERFORMED BY: JERI LabCapital [facility] Omyhir4823 [address] RoadDublin [place] [id number] Urobilinogen Test strip mass conc (U) 0.2 mg/dL Normal 0.0-1.9 Comprehensiv e Internal Medicine Work Phone: Comment on above: PATIENT WAS FASTINGP ERFORMED BY: JERI LabSourav DavisKxenro2298 [address] RoadDublin [place] [id number] Lab Report: TSHon 07-09-2013 Thyroid stimulating hormone (TSH) 6.12 u[iU]/mL High 0.358-3.74 [facility] Work Phone: Replaced Document: [place] 07-08-2013 Pulse (Heart Rate) 399 ms Invalid Interpretation Code Ariton [facility]ter[facility] Work Phone: T3, FREE (TRIDOTHYRONINE) (1 7639)Ordered By: Hair Colorist on 06-22-2012 T3 free mass conc 2.8 pg/mL Normal 2.0-4.4 Compreh ensive Internal Medicine Work Phone: Comment on above: PATIENT NOT FASTINGP ERFORMED BY: [employer] [facility] Wrrtir3527 Extrem[address] Technologyin [place] [id number] T4, FREE (THYROXINE) ([id number]) Ordered By: Hair Colorist on 06-22-2012 T4 free mass conc 1.06 ng/dL Normal 0.82-1.77 Compreh ensive Internal Medicine Work Phone: Comment on above: PATIENT NOT FASTINGP ERFORMED BY: [employer] [facility] Rsfviy[address] End ManufacturingSelect Specialty Hospital [facility] [id number] Information: [id number] TSH ([id number])Ordered By: Syste m Diesel Motor Mechanic on 06-22-2012 Thyrotropin Qn 8.910 {uIU/mL} Abnormal 0.450-4.500 Compr ehensive Internal Medicine Work Phone: Comment on above: PATIENT NOT FASTINGP ERFORMED BY: [employer] [facility] Qsxbyz4303 [address] TexxiAtrium Health Huntersville [id number] BIDOrdered By: System Manage r on 01-16-2012 BID 0.11 mg/dL Normal 0.00-0.30 [facility] Work Phone: Comment on above: DR GAYTAN ORDERED L IPID,TSH,CMPDR NICOLOZAKES ORDERED LIVER,LIPID CMPOrdered By: System Manage r on 01-16-2012 Albumin mass conc 3.9 g/dL Normal 3.4-5.0 Compreh ensive Internal Medicine Work Phone: Comment on above: DR GAYTAN ORDERED L IPID,TSH,CMPDR NICOLOZAKES ORDERED LIVER,LIPID Albumin/Globulin mass ratio 1.0 {RATIO} Normal 0.9-2.4 [facility] Work Phone: Comment on above: DR GAYTAN ORDERED L IPID,TSH,CMPDR NICOLOZAKES ORDERED LIVER,LIPID ALP enzyme act/vol 67 U/L Normal 50-136 [facility] Internal Medicine Work Phone: Comment on above: DR GAYTAN ORDERED L IPID,TSH,CMPDR NICOLOZAKES ORDERED LIVER,LIPID ALT enzyme act/vol 27 U/L Normal 12-78 [facility] Internal Medicine Work Phone: Comment on above: DR GAYTAN ORDERED L IPID,TSH,CMPDR NICOLOZAKES ORDERED LIVER,LIPID Anion gap 3 molar conc 11 mmol/L Normal 5-15 [facility] Internal Medicine Work Phone: Anion gap molar conc 11 mmol/L Normal 5-15 [facility] Internal Medicine Work Phone: Comment on above: DR GAYTAN ORDERED L IPID,TSH,CMPDR NICOLOZAKES ORDERED LIVER,LIPID AST enzyme act/vol 18 U/L Normal 15-37 [facility] Internal Medicine Work Phone: Comment on above: DR GAYTAN ORDERED L IPID,TSH,CMPDR NICOLOZAKES ORDERED LIVER,LIPID Bilirubin mass conc 0.40 mg/dL Normal 0.00-1.00 [facility] Internal Medicine Work Phone: Comment on above: DR GAYTAN ORDERED L IPID,TSH,CMPDR NICOLOZAKES ORDERED LIVER,LIPID Calcium mass conc 8.6 mg/dL Normal 8.5-10.1 [facility] Internal Medicine Work Phone: Comment on above: DR GAYTAN ORDERED L IPID,TSH,CMPDR NICOLOZAKES ORDERED LIVER,LIPID Chloride molar conc 103 mmol/L Normal 98-107 [facility] Internal Medicine Work Phone: Comment on above: DR GAYTAN ORDERED L IPID,TSH,CMPDR NICOLOZAKES ORDERED LIVER,LIPID CO2 molar conc 27.0 mmol/L Normal 21.0-32.0 [facility] Internal Medicine Work Phone: Comment on above: DR GAYTAN ORDERED L IPID,TSH,CMPDR NICOLOZAKES ORDERED LIVER,LIPID Creatinine mass conc 0.9 mg/dL Normal 0.8-1.3 Comp rehensive Internal Medicine Work Phone: Comment on above: DR GAYTAN ORDERED L IPID,TSH,CMPDR NICOLOZAKES ORDERED LIVER,LIPID GFR/1.73 sq M predicted among blacks MDRD vol rate/area (S/P/Bld) 110 mL/min/{1.73_m2} Normal Comprehensi ve Internal Medicine Work Phone: Comment on above: DR GAYTAN ORDERED L IPID,TSH,CMPDR NICOLOZAKES ORDERED LIVER,LIPID GFR/1.73 sq M.predicted MDRD vol rate/area 91 mL/min/{1.73_m2} Normal Comprehensiv e Internal Medicine Work Phone: Comment on above: DR GAYTAN ORDERED L IPID,TSH,CMPDR NICOLOZAKES ORDERED LIVER,LIPID Globulin Calculated mass conc (S) 3.8 g/dL Normal 2.7-4.2 [facility] Work Phone: Globulin mass conc (S) 3.8 g/dL Normal 2.7-4.2 [facility]erensive [facility] Work Phone: Comment on above: DR GAYTAN ORDERED L IPID,TSH,CMPDR NICOLOZAKES ORDERED LIVER,LIPID Glucose mass conc 95 mg/dL Normal 70-110 Compreh ensive Internal Medicine Work Phone: Comment on above: DR GAYTAN ORDERED L IPID,TSH,CMPDR NICOLOZAKES ORDERED LIVER,LIPID Potassium molar conc 4.2 mmol/L Normal 3.5-5.1 Comp rehensive Internal Medicine Work Phone: Comment on above: DR GAYTAN ORDERED L IPID,TSH,CMPDR NICOLOZAKES ORDERED LIVER,LIPID Protein mass conc 7.7 g/dL Normal 6.4-8.2 Compreh ensive Internal Medicine Work Phone: Comment on above: DR GAYTAN ORDERED L IPID,TSH,CMPDR NICOLOZAKES ORDERED LIVER,LIPID Sodium molar conc 141 mmol/L Normal 136-145 Compreh ensive Internal Medicine Work Phone: Comment on above: DR GAYTAN ORDERED L IPID,TSH,CMPDR NICOLOZAKES ORDERED LIVER,LIPID Urea nitrogen mass conc 11 mg/dL Normal 7-18 [facility] Work Phone: Comment on above: DR GAYTAN ORDERED L IPID,TSH,CMPDR NICOLOZAKES ORDERED LIVER,LIPID Urea nitrogen/Creatinine mass ratio 12.2 {RATIO} Normal 10-20 [facility] Work Phone: Comment on above: DR GAYTAN ORDERED L IPID,TSH,CMPDR NICOLOZAKES ORDERED LIVER,LIPID LIPIDOrdered By: System Gist abdias on 01-16-2012 Cholesterol in HDL mass conc 54 mg/dL Normal [facility] Work Phone: Comment on above: Reference Range HDL <40 mg/dL Low HDL Cholesterol HDL >or= 60 mg/dL High HDL Cholesterol DR GAYTAN ORDERED L IPID,TSH,CMPDR NICOLOZAKES ORDERED LIVER,LIPID Cholesterol in LDL mass conc 83 mg/dL Normal 0-130 [facility] Work Phone: Comment on above: DR GAYTAN ORDERED L IPID,TSH,CMPDR NICOLOZAKES ORDERED LIVER,LIPID Cholesterol in VLDL mass conc 14 mg/dL Normal 5-40 [facility] Work Phone: Comment on above: DR GAYTAN ORDERED L IPID,TSH,CMPDR NICOLOZAKES ORDERED LIVER,LIPID Cholesterol mass conc 151 mg/dL Normal [facility] prehensive Internal Medicine Work Phone: Comment on above: <200 mg/dL Desirable 200-240 mg/dL Borderline >240 mg/dL High Risk DR GAYTAN ORDERED L IPID,TSH,CMPDR NICOLOZAKES ORDERED LIVER,LIPID Triglyceride mass conc 72 mg/dL Normal Co mprehensive Internal Medicine Work Phone: Comment on above: Serum Triglycerides Reference Interval Normal <150 mg/dL Borderline high 150 - 199 mg/dL High 200 - 499 mg/dL Very High > or = 500 mg/dL DR GAYTAN ORDERED L IPID,TSH,CMPDR NICOLOZAKES ORDERED LIVER,LIPID TSHOrdered By: System 51edj r on 01-16-2012 Thyrotropin Qn 3.63 {uIU/mL} Normal 0.358-3.74 Compreh ensive Internal Medicine Work Phone: Comment on above: DR GAYTAN ORDERED L IPID,TSH,CMPDR MICHELINE ORDERED LIVER,LIPID CBC with manual diff ([id number]) Ordered By: Hair Colorist on 11-08-2011 Basophils #/vol (Bld) 0.0 {x10E3/uL} Normal 0.0-0.2 [facility] Work Phone: Comment on above: PATIENT WAS FASTINGP ERFORMED BY: [employer] (fka [employer])lin6370 [facility] [id number] BY: [employer] [address] [id number] Basophils (Bld) [#/Vol] 0.0 10*3/uL Normal 0.0-0.2 [facility] Work Phone: Comment on above: PATIENT WAS FASTINGP ERFORMED BY: [employer] (fka [employer])lin6370 [facility] [id number] BY: [employer] [address] [id number] Basophils Auto #/vol (Bld) 0.0 {x10E3/uL} Normal 0.0-0.2 [facility] Work Phone: Basophils/100 WBC (Bld) 1 % Normal 0-3 [facility] Work Phone: Comment on above: PATIENT WAS FASTINGP ERFORMED BY: judge.me Hzopng1257 [facility] [id number] BY: [employer] [address] [id number] Basophils/100 WBC Auto (Bld) 1 % Normal 0-3 [facility] Work Phone: Eosinophils #/vol (Bld) 0.3 {x10E3/uL} Normal 0.0-0.4 [facility] Work Phone: Comment on above: PATIENT WAS FASTINGP ERFORMED BY: [employer]fka [employer])lin6370 [facility] [id number] BY: [address] [id number] Eosinophils (Bld) [#/Vol] 0.3 10*3/uL Normal 0.0-0.4 [facility] Work Phone: Comment on above: PATIENT WAS FASTINGP ERFORMED BY: MoodswingJose [place] [id number] [facility] [id number] BY: [address] [id number] Eosinophils Auto #/vol (Bld) 0.3 {x10E3/uL} Normal 0.0-0.4 [facility] Work Phone: Eosinophils/100 WBC (Bld) 5 % Normal 0-7 [facility] Work Phone: Comment on above: PATIENT WAS FASTINGP ERFORMED BY: MoodswingJose [place] [id number] [facility] [id number] BY: [address] [id number] Eosinophils/100 WBC Auto (Bld) 5 % Normal 0-7 [facility] Work Phone: Erythrocyte distribution width Auto Ratio (RBC) 13.4 % Normal 11.7-15.0 [facility] Work Phone: Erythrocyte distribution width Ratio (RBC) 13.4 % Normal 11.7-15.0 [facility] Work Phone: Comment on above: PATIENT WAS FASTINGP ERFORMED BY: MoodswingGreystone Park Psychiatric HospitalCkxvki1691 [facility] [id number] BY: [address] [id number] Hematocrit Auto Volume Fraction (Bld) 44.8 % Normal 36.0-50.0 [facility] Work Phone: Hematocrit Volume Fraction (Bld) 44.8 % Normal 36.0-50.0 [facility] Work Phone: Comment on above: PATIENT WAS FASTINGP ERFORMED BY: [place] [id number] [facility] [id number] BY: [address] [id number] Hemoglobin mass conc (Bld) 15.6 g/dL Normal 12.5-17.0 [facility] Work Phone: Comment on above: PATIENT WAS FASTINGP ERFORMED BY: Lab[address] [id number] BY: [address] [id number] Immature granulocytes #/vol (Bld) 0.0 {x10E3/uL} Normal 0.0-0.1 [facility] Work Phone: Comment on above: PATIENT WAS FASTINGP ERFORMED BY: [facility] Qkmhkp1417 [facility] [id number] BY: [address] [id number] Immature granulocytes (Bld) [#/Vol] 0.0 10*3/uL Normal 0.0-0.1 [facility] Work Phone: Comment on above: PATIENT WAS FASTINGP ERFORMED BY: JERI [place] [id number] [facility] [id number] BY: [address] [id number] Immature granulocytes/100 WBC (Bld) 0 % Normal 0-2 [facility] Work Phone: Comment on above: PATIENT WAS FASTINGP ERFORMED BY: [place] [id number] [facility] [id number] BY: [address] [id number] Lymphocytes #/vol (Bld) 1.6 {x10E3/uL} Normal 0.7-4.5 [facility] Work Phone: Comment on above: PATIENT WAS FASTINGP ERFORMED BY: JERI MoodswingGreystone Park Psychiatric HospitalHmygep6003 [facility] [id number] BY: [address] [id number] Lymphocytes (Bld) [#/Vol] 1.6 10*3/uL Normal 0.7-4.5 [facility] Work Phone: Comment on above: PATIENT WAS FASTINGP ERFORMED BY: LabThe World of PicturesJose Ville 3381070 [facility] [id number] BY: [address] [id number] Lymphocytes Auto #/vol (Bld) 1.6 {x10E3/uL} Normal 0.7-4.5 [facility] Work Phone: Lymphocytes/100 WBC (Bld) 31 % Normal 14-46 [facility] Work Phone: Comment on above: PATIENT WAS FASTINGP ERFORMED BY: MoodswingJose [place] [id number] [facility] [id number] BY: [address] [id number] Lymphocytes/100 WBC Auto (Bld) 31 % Normal 14-46 [facility] Work Phone: MCH Auto Entitic mass (RBC) 32.0 pg Normal 27.0-34.0 [facility] Work Phone: MCH Entitic mass (RBC) 32.0 pg Normal 27.0-34.0 [facility] Internal Medicine Work Phone: Comment on above: PATIENT WAS FASTINGP ERFORMED BY: [facility]6370 [facility] [id number] BY: [address] [id number] MCHC Auto mass conc (RBC) 34.8 g/dL Normal 32.0-36.0 [facility] Work Phone: MCHC mass conc (RBC) 34.8 g/dL Normal 32.0-36.0 [facility] Internal Medicine Work Phone: Comment on above: PATIENT WAS FASTINGP ERFORMED BY: JERI [place] [id number] [facility] [id number] BY: [address] [id number] MCV Auto Entitic volume (RBC) 92 fL Normal 80-98 [facility] Work Phone: MCV Entitic volume (RBC) 92 fL Normal 80-98 [facility] Work Phone: Comment on above: PATIENT WAS FASTINGP ERFORMED BY: [facility] TroyThe World of PicturesJose Ville 3381070 [facility] [id number] BY: [address] [id number] Monocytes #/vol (Bld) 0.4 {x10E3/uL} Normal 0.1-1.0 [facility] Work Phone: Comment on above: PATIENT WAS FASTINGP ERFORMED BY: Moodswing[place] 3381070 [facility] [id number] BY: [address] [id number] Monocytes (Bld) [#/Vol] 0.4 10*3/uL Normal 0.1-1.0 [facility] Work Phone: Comment on above: PATIENT WAS FASTINGP ERFORMED BY: [place] [id number] [facility] [id number] BY: [address] [id number] Monocytes Auto #/vol (Bld) 0.4 {x10E3/uL} Normal 0.1-1.0 [facility] Work Phone: Monocytes/100 WBC (Bld) 9 % Normal 4-13 [facility] Work Phone: Comment on above: PATIENT WAS FASTINGP ERFORMED BY: [address] [id number] BY: [employer] [id number] Monocytes/100 WBC Auto (Bld) 9 % Normal 4-13 [facility] Work Phone: Neutrophils #/vol (Bld) 2.8 {x10E3/uL} Normal 1.8-7.8 [facility] Work Phone: Comment on above: PATIENT WAS FASTINGP ERFORMED BY: JERI [employer] Sffzvh3981 [facility] [id number] BY: [employer] [id number] Neutrophils (Bld) [#/Vol] 2.8 10*3/uL Normal 1.8-7.8 [facility] Work Phone: Comment on above: PATIENT WAS FASTINGP ERFORMED BY: [employer] Egsrns1439 [facility] [id number] BY: [employer] [id number] Neutrophils Auto #/vol (Bld) 2.8 {x10E3/uL} Normal 1.8-7.8 [facility] Work Phone: Neutrophils/100 WBC (Bld) 54 % Normal 40-74 [facility] Work Phone: Comment on above: PATIENT WAS FASTINGP ERFORMED BY: JERI [employer] Oqtpgi7610 [facility] [id number] BY: [employer] [id number] Neutrophils/100 WBC Auto (Bld) 54 % Normal 40-74 [facility] Work Phone: Platelets #/vol (Bld) 252 {x10E3/uL} Normal 140-415 [facility] Work Phone: Comment on above: PATIENT WAS FASTINGP ERFORMED BY: [employer] Gmuiwq7787 [facility] [facility] [id number] BY: [place]swing[place] [id number] Platelets (Bld) [#/Vol] 252 10*3/uL Normal 140-415 [facility] Work Phone: Comment on above: PATIENT WAS FASTINGP ERFORMED BY: JERI [facility] Qhpoff1240 [facility] [id number] BY: [address] [id number] Platelets Auto #/vol (Bld) 252 {x10E3/uL} Normal 140-415 [facility] Work Phone: RBC #/vol (Bld) 4.87 {x10E6/uL} Normal 4.10-5.60 [facility] Internal Medicine Work Phone: Comment on above: PATIENT WAS FASTINGP ERFORMED BY: JERI [facility] Ltougz4527 [facility] [id number] BY: [address] [id number] RBC (Bld) [#/Vol] 4.87 10*6/uL Normal 4.10-5.60 [facility] Internal Medicine Work Phone: Comment on above: PATIENT WAS FASTINGP ERFORMED BY: [facility] Rpjlgb7851 [facility] [id number] BY: [address] [id number] RBC Auto #/vol (Bld) 4.87 {x10E6/uL} Normal 4.10-5.60 [facility] Work Phone: WBC #/vol (Bld) 5.2 {x10E3/uL} Normal 4.0-10.5 [facility] Internal Medicine Work Phone: Comment on above: PATIENT WAS FASTINGP ERFORMED BY: [place] [id number] [facility] [id number] BY: [address] [id number] WBC (Bld) [#/Vol] 5.2 10*3/uL Normal 4.0-10.5 [facility] Internal Medicine Work Phone: Comment on above: PATIENT WAS FASTINGP ERFORMED BY: JERI [facility] Goqpau0489 [facility] [id number] BY: [address] [id number] WBC Auto #/vol (Bld) 5.2 {x10E3/uL} Normal 4.0-10.5 [facility] Work Phone: Lipid Panel (74853)Ordered B y: Hair Colorist on 11-08-2011 Cholesterol in HDL mass conc 59 mg/dL Normal [facility] Work Phone: Comment on above: According to ATP-III Guidelines, HDL-C >59 mg/dL is considered anegative risk factor for CHD. PATIENT WAS FASTINGP ERFORMED BY: [employer] LabThe World of Pictures Pgalyp9187 [facility] [id number] BY: Symphony Concier[address] [id number] Cholesterol in LDL mass conc 83 mg/dL Normal 0-99 [facility] Work Phone: Comment on above: PATIENT WAS FASTINGP ERFORMED BY: JERI LabThe World [employer] Pictures Hensiu2008 [facility] [id number] BY: [address] [id number] Cholesterol in LDL/Cholesterol in HDL mass ratio 1.4 {ratio_units} Normal 0.0-3.6 [facility] Work Phone: Comment on above: PATIENT WAS FASTINGP ERFORMED BY: [employer] [facility] Vsmcud7326 [facility] [id number] BY: [address] [id number] Cholesterol in VLDL mass conc 14 mg/dL Normal 5-40 [facility] Work Phone: Comment on above: PATIENT WAS FASTINGP ERFORMED BY: [employer] [facility] Jayxcy9735 C[address] [facility] [id number] BY: [facility] [address] [id number] Cholesterol mass conc 156 mg/dL Normal 100-199 Com prehensive Internal Medicine Work Phone: Comment on above: PATIENT WAS FASTINGP ERFORMED BY: JERI [facility] Qlvxcp2798 C[address] [facility] [id number] BY: BN [facility] [address] [id number] Triglyceride mass conc 72 mg/dL Normal 0-149 [facility] Internal [facility] Work Phone: Comment on above: PATIENT WAS FASTINGP ERFORMED BY: JERI [facility] Dlpqrj0255 [facility] [id number] BY: [facility] [address] [id number] Metabolic Panel, Comprehensi ve (80585)Ordered By: Hair Colorist on 11-08-2011 Albumin mass conc 4.6 g/dL Normal 3.6-4.8 Compreh ensive Internal Medicine Work Phone: Comment on above: PATIENT WAS FASTINGP ERFORMED BY: JERI [facility] Xeiomf1411 [facility] [id number] BY: LabCo[address] [id number] Albumin/Globulin mass ratio 1.9 {ratio} Normal 1.1-2.5 [facility] Work Phone: Comment on above: PATIENT WAS FASTINGP ERFORMED BY: CB [facility] Fsaqex4519 C[facility] [id number] BY: LabCo[address] [id number] ALP [Catalytic activity/Vol] 91 U/L Normal 25-160 [facility] Work Phone: Comment on above: PATIENT WAS FASTINGP ERFORMED BY: CB [facility] Enkfys5340 C[address] [facility] [id number] BY: [address] [id number] ALP enzyme act/vol 91 [iU]/L Normal 25-160 [facility] Internal Medicine Work Phone: Comment on above: PATIENT WAS FASTINGP ERFORMED BY: [facility] Etgtii0353 Cramer RoadDublin [place] [id number] BY: [address] [id number] ALT [Catalytic activity/Vol] 11 U/L Normal 0-55 [facility] Work Phone: Comment on above: PATIENT WAS FASTINGP ERFORMED BY: LabCoJose [place] [id number] C[address] [facility] [id number] BY: [address] [id number] ALT enzyme act/vol 11 [iU]/L Normal 0-55 [facility] Internal Medicine Work Phone: Comment on above: PATIENT WAS FASTINGP ERFORMED BY: [facility] Lcciiy1316 C[address] [facility] [id number] BY: [address] [id number] AST [Catalytic activity/Vol] 19 U/L Normal 0-40 [facility] Internal Medicine Work Phone: Comment on above: PATIENT WAS FASTINGP ERFORMED BY: [facility] Gbioai1784 C[address] [facility] [id number] BY: [address] [id number] AST enzyme act/vol 19 [iU]/L Normal 0-40 [facility] Internal Medicine Work Phone: Comment on above: PATIENT WAS FASTINGP ERFORMED BY: [facility] Ysdabr4784 C[address] [facility] [id number] BY: [address] [id number] Bilirubin mass conc 0.4 mg/dL Normal 0.0-1.2 Compr ehensive Internal Medicine Work Phone: Comment on above: PATIENT WAS FASTINGP ERFORMED BY: CB [facility] Beqnka5349 [facility] [id number] BY: [facility] [address] [id number] Calcium mass conc 9.7 mg/dL Normal 8.6-10.2 Compreh ensive Internal Medicine Work Phone: Comment on above: PATIENT WAS FASTINGP ERFORMED BY: CB [facility] Hbpoga8711 [facility] [id number] BY: BN [facility] [address] [id number] Chloride molar conc 101 mmol/L Normal 97-108 Compr ehensive Internal Medicine Work Phone: Comment on above: PATIENT WAS FASTINGP ERFORMED BY: CB [facility] Jlwjgq7084 C[facility] [id number] BY: [facility] [address] [id number] CO2 molar conc 25 mmol/L Normal 20-32 Comprehens deny Internal Medicine Work Phone: Comment on above: PATIENT WAS FASTINGP ERFORMED BY: CB [facility] Ofrszb6587 [facility] [id number] BY: [facility] [address] [id number] Creatinine mass conc 1.00 mg/dL Normal 0.76-1.27 Comp rehensive Internal Medicine Work Phone: Comment on above: PATIENT WAS FASTINGP ERFORMED BY: CB [facility] Dcioly9303 [facility] [id number] BY: [facility] [address] [id number] GFR/1.73 sq M predicted among blacks MDRD vol rate/area (S/P/Bld) 94 mL/min/{1.73_m2} Normal Comprehensiv e Internal Medicine Work Phone: Comment on above: Note: A persistent e GFR <60 mL/min/1.73 m2 (3 months or more) mayindicate chronic kidney disease. An eGFR >59 mL/min/1.73 m2 with anelevated urine protein also may indicate chronic kidney disease.Calculated using CKD-EPI formula. PATIENT WAS FASTINGP ERFORMED BY: [facility] Ilsfbp1664 [facility] [id number] BY: [employer] [id number] GFR/1.73 sq M predicted among non-blacks CKD-EPI vol rate/area (S/P/Bld) 81 mL/min/1.73 Normal Comprehensiv e Internal Medicine Work Phone: Comment on above: PATIENT WAS FASTINGP ERFORMED BY: LabThe World of Pictures Uxccih7746 [facility] [id number] BY: [facility] WestThe World of Pictures[address] [id number] Globulin Calculated mass conc (S) 2.4 g/dL Normal 1.5-4.5 [facility] Work Phone: Globulin mass conc (S) 2.4 g/dL Normal 1.5-4.5 [facility]eren[facility] Work Phone: Comment on above: PATIENT WAS FASTINGP ERFORMED BY: LabThe World of Pictures Efztrv1075 [facility] [id number] BY: Moodswing[address] [id number] Glucose mass conc 95 mg/dL Normal 65-99 Compreh ensive Internal Medicine Work Phone: Comment on above: PATIENT WAS FASTINGP ERFORMED BY: LabThe World of Pictures Ghgift7940 [facility] [id number] BY: Symphony Concier[address] [id number] Potassium molar conc 5.1 mmol/L Normal 3.5-5.2 Comp [facility] Work Phone: Comment on above: PATIENT WAS FASTINGP ERFORMED BY: [facility] Jkdayb5234 [facility] [id number] BY: [address] [id number] Protein mass conc 7.0 g/dL Normal 6.0-8.5 Compreh ensive Internal Medicine Work Phone: Comment on above: PATIENT WAS FASTINGP ERFORMED BY: CB [facility] Dmjkyb6959 [facility] [id number] BY: LabCo[address] [id number] Sodium molar conc 139 mmol/L Normal 134-144 Compreh ensive Internal Medicine Work Phone: Comment on above: PATIENT WAS FASTINGP ERFORMED BY: [facility] Eyohvt8839 [facility] [id number] BY: [address] [id number] Urea nitrogen mass conc 14 mg/dL Normal 8-27 [facility] Work Phone: Comment on above: PATIENT WAS FASTINGP ERFORMED BY: [facility] Beubxd5751 [facility] [id number] BY: LabCo[address] [id number] Urea nitrogen/Creatinine mass ratio 14 mg/mg Normal 10-22 [facility] Work Phone: Comment on above: PATIENT WAS FASTINGP ERFORMED BY: [facility] Irpzdl6661 [facility] [id number] BY: Lab[address] [id number] PSA (PROSTATE SPECIFIC ANTIG EN) (66710)Ordered By: Hair Colorist on 11-08-2011 Prostate specific Ag mass conc 0.6 ng/mL Normal 0.0-4.0 [facility] Work Phone: Comment on above: Horace ECLIA methodol ogy. .According to the [place] [employer], Serum PSA shoulddecrease and remain at undetectable levels after radicalprostatectomy. The AUA defines biochemical recurrence as an initialPSA value 0.2 ng/mL or greater followed by a subsequent confirmatoryPSA value 0.2 ng/mL or greater.Values obtained with different assay methods or kits cannot be usedinterchangeably. Results cannot be interpreted as absolute evidenceof the presence or absence of malignant disease. PATIENT WAS FASTINGP ERFORMED BY: [employer]70 [facility] [id number] BY: Symphony Concier[address] [id number] TSH (89839)Ordered By: Cheyanne m Diesel Motor Mechanic on 11-08-2011 Thyrotropin Qn 4.980 {uIU/mL} Abnormal 0.450-4.500 [facility]pr [facility] Internal [facility] Work Phone: Comment on above: PATIENT WAS FASTINGP ERFORMED BY: [employer] [facility] [id number] BY: Mood[employer] [id number] Testosterone, Free, DirectOr dered By: Hair Colorist on 11-08-2011 Testosterone Free mass conc 5.3 pg/mL Abnormal 6.6-18.1 [facility] Work Phone: Comment on above: PATIENT WAS FASTINGP ERFORMED BY: [employer]70 [facility] [id number] BY: Symphony [address] [id number] GONADOTROPIN-FSH (95153)Orde red By: Hair Colorist on 06-20-2011 Follitropin Qn 3.0 m[IU]/mL Normal 1.5-12.4 Comprehe [facility] Internal Medicine Work Phone: Comment on above: today; PERFORMED BY: [employer] [facility] [id number] BY: Symphony Conc[address] [id number] GONADOTROPIN-LH (70862)Order ed By: Hair Colorist on 06-20-2011 Lutropin Qn 4.9 m[IU]/mL Normal 1.7-8.6 Comprehensi ve Internal Medicine Work Phone: Comment on above: today; PERFORMED BY: [employer]70 [facility] TechnologySelect [facility] [id number] BY: [employer] [id number] TESTOSTERONE FREE (86235)Ord ered By: Hair Colorist on 06-20-2011 Testosterone Free mass conc 7.8 pg/mL Normal 6.6-18.1 [facility] Work Phone: Comment on above: today and in three [facility] (approximately); PERFORMED BY: [employer]70 [facility]rem[facility] TechnologySelect [facility] [id number] BY: [employer] [address] [id number] CALCIFIDIOL (25839) VIT D 25 Ordered By: Hair Colorist on 06-01-2011 Calcitriol mass conc 40.1 ng/mL Normal 32.0-100.0 Comp rehensive Internal Medicine Work Phone: Comment on above: Effective Novem r 2010 Vitamin D, 25-Hydroxy reference intervals will be changing to 30-100. .Recent studies consider the lower limit of 32.0 ng/mL to be athreshold for optimal health.Shaq PATEL. J Nutr. 2004;135(2):317-22. PATIENT NOT FASTINGP ERFORMED BY: Granify6370 Insync SystemsAtrium Health Huntersville [id number] BY: [employer] [id number] CBC (AUTO) (13929)Ordered By : Hair Colorist on 06-01-2011 Erythrocyte distribution width Auto Ratio (RBC) 13.1 % Normal 11.7-15.0 [facility] Work Phone: Erythrocyte distribution width Ratio (RBC) 13.1 % Normal 11.7-15.0 [facility] Work Phone: Comment on above: PATIENT NOT FASTINGP ERFORMED BY: [employer]70 [facility] [id number] BY: [employer] [id number] Hematocrit Auto Volume Fraction (Bld) 46.1 % Normal 36.0-50.0 [facility] Work Phone: Hematocrit Volume Fraction (Bld) 46.1 % Normal 36.0-50.0 [facility] Work Phone: Comment on above: PATIENT NOT FASTINGP ERFORMED BY: JERI MoodswingJose [place] [id number] [facility] [id number] BY: [employer] [id number] Hemoglobin mass conc (Bld) 15.6 g/dL Normal 12.5-17.0 [facility] Work Phone: Comment on above: PATIENT NOT FASTINGP ERFORMED BY: JERI [facility] HospitalThe World of Picturescarlos DavisDvhhji7915 [facility] [id number] BY: [employer] [id number] MCH Auto Entitic mass (RBC) 31.3 pg Normal 27.0-34.0 [facility] Internal Medicine Work Phone: MCH Entitic mass (RBC) 31.3 pg Normal 27.0-34.0 [facility] Internal Medicine Work Phone: Comment on above: PATIENT NOT FASTINGP ERFORMED BY: JERI [facility] HospitalThe World [facility] Pictures Uvcqja3457 [facility] [id number] BY: [employer] [id number] MCHC Auto mass conc (RBC) 33.8 g/dL Normal 32.0-36.0 [facility] Internal Medicine Work Phone: MCHC mass conc (RBC) 33.8 g/dL Normal 32.0-36.0 [facility] Internal Medicine Work Phone: Comment on above: PATIENT NOT FASTINGP ERFORMED BY: JERI MoodswingJose [place] 3381070 [facility] [id number] BY: Symphony Concierge[address] [id number] MCV Auto Entitic volume (RBC) 93 fL Normal 80-98 [facility] Work Phone: MCV Entitic volume (RBC) 93 fL Normal 80-98 [facility] Work Phone: Comment on above: PATIENT NOT FASTINGP ERFORMED BY: [facility] Rmicpq4096 [facility] [id number] BY: [address] [id number] Platelets #/vol (Bld) 261 {x10E3/uL} Normal 140-415 [facility] Work Phone: Comment on above: PATIENT NOT FASTINGP ERFORMED BY: LabThe World of Pictures Yxodhg0234 [facility] [id number] BY: [facility] WestThe World of Pictures[address] [id number] Platelets (Bld) [#/Vol] 261 10*3/uL Normal 140-415 [facility] Work Phone: Comment on above: PATIENT NOT FASTINGP ERFORMED BY: LabThe World of PicturesJose [place] 3381070 [facility] [id number] BY: [address] [id number] Platelets Auto #/vol (Bld) 261 {x10E3/uL} Normal 140-415 [facility] Work Phone: RBC #/vol (Bld) 4.98 {x10E6/uL} Normal 4.10-5.60 Comp [facility] Work Phone: Comment on above: PATIENT NOT FASTINGP ERFORMED BY: LabCoJose V[place] 3381070 [facility] [id number] BY: [address] [id number] RBC (Bld) [#/Vol] 4.98 10*6/uL Normal 4.10-5.60 Compr ehensive Internal Medicine Work Phone: Comment on above: PATIENT NOT FASTINGP ERFORMED BY: JERI [facility] Ddnwno5150 [facility] [id number] BY: [address] [id number] RBC Auto #/vol (Bld) 4.98 {x10E6/uL} Normal 4.10-5.60 [facility] Work Phone: WBC #/vol (Bld) 5.1 {x10E3/uL} Normal 4.0-10.5 Compr [facility] Internal Medicine Work Phone: Comment on above: PATIENT NOT FASTINGP ERFORMED BY: JERI [facility] Kncdic2157 [facility] [id number] BY: [address] [id number] WBC (Bld) [#/Vol] 5.1 10*3/uL Normal 4.0-10.5 Compre [facility] Internal Medicine Work Phone: Comment on above: PATIENT NOT FASTINGP ERFORMED BY: JERI [facility] Ouivia4484 [facility] [id number] BY: [address] [id number] WBC Auto #/vol (Bld) 5.1 {x10E3/uL} Normal 4.0-10.5 [facility] Work Phone: FSH and LHOrdered By: Hair Colorist on 06-01-2011 Follitropin Qn 2.3 m[IU]/mL Normal 1.5-12.4 Comprehe nsive Internal Medicine Work Phone: Comment on above: PATIENT NOT FASTINGP ERFORMED BY: JERI [facility] Zbdrwd8323 [facility] [id number] Lutropin Qn 3.8 m[IU]/mL Normal 1.7-8.6 Comprehensi Internal Medicine Work Phone: Comment on above: PATIENT NOT FASTINGP ERFORMED BY: CB [facility] Whtqyt4954 Cramer RoadDublin [place] [id number] Folate (66893)Ordered By: stem Diesel Motor Mechanic on 06-01-2011 Folate mass conc 18.7 ng/mL Normal Comprehe nsive Internal Medicine Work Phone: Comment on above: Indeterminate: 2.2 - 3.0 Deficient: <2.2 PATIENT NOT FASTINGP ERFORMED BY: CB [facility] Lfvtfx5303 Cramer RoadWilson Medical Centerin [place] [id number] BY: Lab[address] [id number] METABOLIC PANEL, COMPREHENSI VE (22162)Ordered By: Hair Colorist on 06-01-2011 Albumin mass conc 4.7 g/dL Normal 3.6-4.8 Compreh ensive Internal Medicine Work Phone: Comment on above: PATIENT NOT FASTINGP ERFORMED BY: CB [facility] Dntzmn4926 Cramer RoadAtrium Health Huntersville [id number] BY: Lab[address] [id number] Albumin/Globulin mass ratio 2.0 {ratio} Normal 1.1-2.5 [facility] Work Phone: Comment on above: PATIENT NOT FASTINGP ERFORMED BY: CB [facility] Mlaytt5095 Cramer RoadDublin [place] [id number] BY: Lab[address] [id number] ALP [Catalytic activity/Vol] 81 U/L Normal 25-160 [facility] Work Phone: Comment on above: PATIENT NOT FASTINGP ERFORMED BY: CB [facility] Oluzuv4870 Craemr RoadDublin [place] [id number] BY: Lab[address] [id number] ALP enzyme act/vol 81 [iU]/L Normal 25-160 [facility] Internal Medicine Work Phone: Comment on above: PATIENT NOT FASTINGP ERFORMED BY: CB [facility] Gxgjer5152 Crmaer RoadDuin [place] [id number] BY: [address] [id number] ALT [Catalytic activity/Vol] 22 U/L Normal 0-55 [facility] Work Phone: Comment on above: PATIENT NOT FASTINGP ERFORMED BY: JERI [facility] Udgojy1488 Cramer RoadDublin [place] [id number] BY: LabCo[address] [id number] ALT enzyme act/vol 22 [iU]/L Normal 0-55 [facility] Internal Medicine Work Phone: Comment on above: PATIENT NOT FASTINGP ERFORMED BY: JERI [facility] Pdnfqb5385 Cramer RoadWilson Medical Centerin [place] [id number] BY: [address] [id number] AST [Catalytic activity/Vol] 18 U/L Normal 0-40 [facility] Internal Medicine Work Phone: Comment on above: PATIENT NOT FASTINGP ERFORMED BY: JERI [facility] Ymzrol2681 Cramer RoadWilson Medical Centerin [place] [id number] BY: [address] [id number] AST enzyme act/vol 18 [iU]/L Normal 0-40 [facility] Internal Medicine Work Phone: Comment on above: PATIENT NOT FASTINGP ERFORMED BY: JERI [facility] Oykgsd3531 Cramer RoadWilson Medical Centerin [place] [id number] BY: LabCo[address] [id number] Bilirubin mass conc 0.7 mg/dL Normal 0.0-1.2 [facility] Internal Medicine Work Phone: Comment on above: PATIENT NOT FASTINGP ERFORMED BY: JERI [facility] Ajzoco1127 Cramer RoadWilson Medical Centerin [place] [id number] BY: Lab[address] [id number] Calcium mass conc 9.9 mg/dL Normal 8.6-10.2 Compreh ensive Internal Medicine Work Phone: Comment on above: PATIENT NOT FASTINGP ERFORMED BY: CB [facility] Xurqlv3280 [address] [facility] [id number] BY: LabCo[address] [id number] Chloride molar conc 100 mmol/L Normal 97-108 Compr ehensive Internal Medicine Work Phone: Comment on above: PATIENT NOT FASTINGP ERFORMED BY: CB [facility] Nbfxvu8019 [address] [facility] [id number] BY: [facility] [address] [id number] CO2 molar conc 25 mmol/L Normal 20-32 Comprehens deny Internal Medicine Work Phone: Comment on above: PATIENT NOT FASTINGP ERFORMED BY: CB [facility] Ipcqyh8953 [address] [facility] [id number] BY: [facility] [address] [id number] Creatinine mass conc 1.01 mg/dL Normal 0.76-1.27 Comp rehensive Internal Medicine Work Phone: Comment on above: PATIENT NOT FASTINGP ERFORMED BY: CB [facility] Ehszph4626 [facility] [id number] BY: [facility] [address] [id number] GFR/1.73 sq M predicted among blacks MDRD vol rate/area (S/P/Bld) 93 mL/min/{1.73_m2} Normal Comprehensiv e Internal Medicine Work Phone: Comment on above: Note: A persistent e GFR <60 mL/min/1.73 m2 (3 months or more) mayindicate chronic kidney disease. An eGFR >59 mL/min/1.73 m2 with anelevated urine protein also may indicate chronic kidney disease.Calculated using CKD-EPI formula. PATIENT NOT FASTINGP ERFORMED BY: CB [facility] Gktnbd2011 [address] RoadDublin [place] [id number] BY: Symphony Concierge[address] [id number] GFR/1.73 sq M predicted among non-blacks CKD-EPI vol rate/area (S/P/Bld) 80 mL/min/1.73 Normal Comprehensiv e Internal Medicine Work Phone: Comment on above: PATIENT NOT FASTINGP ERFORMED BY: [facility] Tnreie0640 [facility] [id number] BY: [address] [id number] Globulin Calculated mass conc (S) 2.3 g/dL Normal 1.5-4.5 [facility] Work Phone: Globulin mass conc (S) 2.3 g/dL Normal 1.5-4.5 Co mprehensive Internal Medicine Work Phone: Comment on above: PATIENT NOT FASTINGP ERFORMED BY: [facility]CoG[facility] Psych[facility] HospitalHnzbbo7808 [facility] [id number] BY: [employer] [address] [id number] Glucose mass conc 95 mg/dL Normal 65-99 Compreh ensive Internal Medicine Work Phone: Comment on above: PATIENT NOT FASTINGP ERFORMED BY: LabCoGreystone Park Psychiatric HospitalDwipnh1665 [facility] [id number] BY: [address] [id number] Potassium molar conc 4.5 mmol/L Normal 3.5-5.2 Comp rehensive Internal Medicine Work Phone: Comment on above: PATIENT NOT FASTINGP ERFORMED BY: [facility] Johega4710 [facility] [id number] BY: [address] [id number] Protein mass conc 7.0 g/dL Normal 6.0-8.5 Compreh ensive Internal Medicine Work Phone: Comment on above: PATIENT NOT FASTINGP ERFORMED BY: CB [facility] Oxbaco8618 [address] RoadDublin [place] [id number] BY: [address] [id number] Sodium molar conc 140 mmol/L Normal 135-145 Compreh [facility] Internal Medicine Work Phone: Comment on above: PATIENT NOT FASTINGP ERFORMED BY: CB [facility] [id number] [address] [facility] [id number] BY: BN [facility] [address] [id number] Urea nitrogen mass conc 16 mg/dL Normal 8-27 [facility] Work Phone: Comment on above: PATIENT NOT FASTINGP ERFORMED BY: CB [facility] Gcinkh7140 Cramer RoadDublin [place] [id number] BY: [facility] [address] [id number] Urea nitrogen/Creatinine mass ratio 16 mg/mg Normal 10-22 [facility] Work Phone: Comment on above: PATIENT NOT FASTINGP ERFORMED BY: CB [facility] [id number] [address] [facility] [id number] BY: LabCo[address] [id number] PSA (PROSTATE SPECIFIC ANTIG EN) (V76.44)Ordered By: Hair Colorist on 06-01-2011 Prostate specific Ag mass conc 0.5 ng/mL Normal 0.0-4.0 [facility] Work Phone: Comment on above: Horace ECLIA methodol ogy. .According to the [employer] [employer], Serum PSA shoulddecrease and remain at undetectable levels after radicalprostatectomy. The AUA defines biochemical recurrence as an initialPSA value 0.2 ng/mL or greater followed by a subsequent confirmatoryPSA value 0.2 ng/mL or greater.Values obtained with different assay methods or kits cannot be usedinterchangeably. Results cannot be interpreted as absolute evidenceof the presence or absence of malignant disease. PATIENT NOT FASTINGP ERFORMED BY: CB [facility] [id number] Cramer RoadDublin [place] [id number] BY: [address] [id number] SED RATE ERYTHROCYTE ([id number]) Ordered By: Hair Colorist on 06-01-2011 ESR Velocity (Bld) 7 mm/h Normal 0-41 [facility] Internal Medicine Work Phone: Comment on above: PATIENT NOT FASTINGP ERFORMED BY: JERI [facility] Ncihkk7603 Cramer RoadDublin [place] [id number] BY: [address] [id number] TESTOSTERONE FREE ([id number])Ord ered By: Hair Colorist on 06-01-2011 Testosterone Free mass conc 6.3 pg/mL Abnormal 6.6-18.1 [facility] Work Phone: Comment on above: PATIENT NOT FASTINGP ERFORMED BY: JERI [facility] Azycxo9732 Cramer RoadAtrium Health Huntersville [id number] BY: [address] [id number] TSH ([id number])Ordered By: Cheyanne m Diesel Motor Mechanic on 06-01-2011 Thyrotropin Qn 2.830 {uIU/mL} Normal 0.450-4.500 [facility] Internal Medicine Work Phone: Comment on above: PATIENT NOT FASTINGP ERFORMED BY: CB [facility] [id number] Cramer RoadAtrium Health Hun[facility] [id number] BY: [address] [id number] VITAMIN B-12 (CYANOCOBALAMIN ) ([id number])Ordered By: Hair Colorist on 06-01-2011 Cobalamin (Vitamin B12) mass conc 698 pg/mL Normal 211-946 [facility] Work Phone: Comment on above: PATIENT NOT FASTINGP ERFORMED BY: CB [facility] [id number] C[address] RoadDublin [place] [id number] BY: [address] [id number] Written AuthorizationOrdered By: Hair Colorist on 06-01-2011 Written Authorization WAR Normal Com prehensive Internal Medicine Work Phone: Comment on above: Written Authorizatio n Received.Authorization received from DR GAYTAN [id number] by Mayuri Layton PATIENT NOT FASTINGP ERFORMED BY: [facility] [id number] [facility] [id number] TSHOrdered By: System Manage r on 03-04-2011 Thyrotropin Qn 2.00 {uIU/mL} Normal 0.358-3.74 Compreh ensive Internal Medicine Work Phone: Rapid Strep Test, Office [phone])on 12-06-2010 S. pyogenes Ag EIA Ql (Throat) Negative Normal [facility] Work Phone: Rapid Strep Test, Office ([phone])Ordered By: Deborah Paredes on 12-06-2010 S. pyogenes Ag IA Ql (Unsp spec) Negative Normal [facility] Work Phone: CBCD,SMEAR DIFFOrdered By: S ystem Diesel Motor Mechanic on 11-27-2010 Eosinophils/100 WBC (Bld) 2 % Normal 0-5 [facility] Work Phone: Eosinophils/100 WBC Auto (Bld) 2 % Normal 0-5 [facility] Work Phone: Erythrocyte distribution width Auto Ratio (RBC) 12.9 % Normal 11.6-14.6 [facility] Work Phone: Erythrocyte distribution width Ratio (RBC) 12.9 % Normal 11.6-14.6 [facility] Work Phone: Hematocrit Auto Volume Fraction (Bld) 43.7 % Normal 40-54 [facility] Work Phone: Hematocrit Volume Fraction (Bld) 43.7 % Normal 40-54 [facility] Work Phone: Hemoglobin mass conc (Bld) 14.6 g/dL Normal 14.0-18.0 [facility] Work Phone: Lymphocytes/100 WBC (Bld) 39 % Normal 19-41 [facility] Work Phone: Lymphocytes/100 WBC Auto (Bld) 39 % Normal 19-41 [facility] Work Phone: MCH Auto Entitic mass (RBC) 32.3 pg Abnormal 27.0-32.0 [facility] Work Phone: MCH Entitic mass (RBC) 32.3 pg Abnormal 27.0-32.0 [facility] Work Phone: MCHC Auto mass conc (RBC) 33.4 g/dL Normal 32-36 [facility] Work Phone: MCHC mass conc (RBC) 33.4 g/dL Normal 32-36 [facility] Internal Medicine Work Phone: MCV Auto Entitic volume (RBC) 96.6 fL Abnormal 80-94 [facility] Work Phone: MCV Entitic volume (RBC) 96.6 fL Abnormal 80-94 [facility] Work Phone: Neutrophils #/vol (Bld) 2.4 3/uL Normal 2.0-7.7 [facility] Internal Medicine Work Phone: Neutrophils Auto #/vol (Bld) 2.4 3/uL Normal 2.0-7.7 [facility] Internal Medicine Work Phone: Platelets #/vol (Bld) SeeNote Normal [facility] Work Phone: Comment on above: Result: ADEQUATE Platelets #/vol (Bld) 268 10*3/uL Normal 150-450 Co [email or web address]] Internal Medicine Work Phone: Platelets Auto #/vol (Bld) 268 10*3/uL Normal 150-450 [facility] Internal Medicine Work Phone: RBC #/vol (Bld) 4.52 {M/mm3} Abnormal 4.6-6.2 Compreh [facility] Internal Medicine Work Phone: RBC Auto #/vol (Bld) 4.52 {M/mm3} Abnormal 4.6-6.2 Co [facility] Work Phone: WBC #/vol (Bld) 4.6 10*3/uL Normal 4.4-11.0 Comprehe nsive Internal Medicine Work Phone: WBC Auto #/vol (Bld) 4.6 10*3/uL Normal 4.4-11.0 Com prehensive Internal Medicine Work Phone: CBCD,SMEAR DIFF 17 % Abnormal 0-10 Comprehen [facility] Internal Medicine Work Phone: CBCD,SMEAR DIFF 100 1 Normal Comprehen [facility] Internal Medicine Work Phone: CBCD,SMEAR DIFF 42 % Abnormal 47-70 [facility] Work Phone: CBCD,SMEAR DIFF SeeNote Normal [facility] Internal Medicine Work Phone: Comment on above: Result: NORM C+C Result: ADEQUATE COMP METABOLICOrdered By: Samson stem Diesel Motor Mechanic on 11-27-2010 Albumin mass conc 3.8 g/dL Normal 3.4-5.0 Compreh [facility] Internal Medicine Work Phone: Albumin/Globulin mass ratio 1.2 {RATIO} Normal 0.9-2.4 [facility] Internal Medicine Work Phone: ALP enzyme act/vol 75 U/L Normal 50-136 [facility] Internal Medicine Work Phone: ALT enzyme act/vol 23 U/L Normal 12-78 [facility] Internal Medicine Work Phone: Anion gap 3 molar conc 6 mmol/L Normal 5-15 [facility] Work Phone: Anion gap molar conc 6 mmol/L Normal 5-15 Comp rehensive Internal Medicine Work Phone: AST enzyme act/vol 16 U/L Normal 15-37 [facility] Internal Medicine Work Phone: Bilirubin mass conc 0.40 mg/dL Normal 0.00-1.00 Compr [facility] Internal Medicine Work Phone: Calcium mass conc 9.4 mg/dL Normal 8.5-10.1 Compreh [facility] Internal Medicine Work Phone: Chloride molar conc 104 mmol/L Normal 98-107 Compr ehensive Internal Medicine Work Phone: CO2 molar conc 31.0 mmol/L Normal 21.0-32.0 Comprehen sive Internal Medicine Work Phone: Creatinine mass conc 1.0 mg/dL Normal 0.8-1.3 Comp rehensive Internal Medicine Work Phone: GFR/1.73 sq M predicted among blacks MDRD vol rate/area (S/P/Bld) 98 mL/min/{1.73_m2} Normal Comprehensiv e Internal Medicine Work Phone: GFR/1.73 sq M.predicted MDRD vol rate/area 81 mL/min/{1.73_m2} Normal Comprehensiv e Internal Medicine Work Phone: Globulin Calculated mass conc (S) 3.3 g/dL Normal 2.7-4.2 [facility] Work Phone: Globulin mass conc (S) 3.3 g/dL Normal 2.7-4.2 Co mprehensive Internal Medicine Work Phone: Glucose mass conc 87 mg/dL Normal 70-110 Compreh ensive Internal Medicine Work Phone: Potassium molar conc 4.4 mmol/L Normal 3.5-5.1 Comp rehensive Internal Medicine Work Phone: Protein mass conc 7.1 g/dL Normal 6.4-8.2 Compreh ensive Internal Medicine Work Phone: Sodium molar conc 141 mmol/L Normal 136-145 Compreh ensive Internal Medicine Work Phone: Urea nitrogen mass conc 18 mg/dL Normal 7-18 [facility] Work Phone: Urea nitrogen/Creatinine mass ratio 18.0 {RATIO} Normal 10-20 [facility] Work Phone: FREE [id number] By: Zena castaneda on 11-27-2010 T3 free mass conc 2.6 pg/mL Normal 2.18-3.98 Compreh ensive Internal Medicine Work Phone: LIPIDOrdered By: Zena calero on 11-27-2010 Cholesterol in HDL mass conc 53 mg/dL Normal [facility] Work Phone: Comment on above: Reference Range HDL <40 mg/dL Low HDL Cholesterol HDL >or= 60 mg/dL High HDL Cholesterol Cholesterol in LDL mass conc 104 mg/dL Normal 0-130 [facility] Work Phone: Cholesterol in VLDL mass conc 12 mg/dL Normal 5-40 [facility] Work Phone: Cholesterol mass conc 169 mg/dL Normal Com prehensive Internal Medicine Work Phone: Comment on above: <200 mg/dL Desirable 200-240 mg/dL Borderline >240 mg/dL High Risk Triglyceride mass conc 60 mg/dL Normal Co mprehensive Internal Medicine Work Phone: Comment on above: Serum Triglycerides Reference Interval Normal <150 mg/dL Borderline high 150 - 199 mg/dL High 200 - 499 mg/dL Very High > or = 500 mg/dL T4 FREE DIRECTOrdered By: PaintZen stem Diesel Motor Mechanic on 11-27-2010 T4 free mass conc 0.79 ng/dL Normal 0.76-1.46 Compreh ensive Internal Medicine Work Phone: TSHOrdered By: System Manage r on 11-27-2010 Thyrotropin Qn 4.54 {uIU/mL} Abnormal 0.358-3.74 Compreh ensive Internal Medicine Work Phone: COMP METABOLICOrdered By: Sy stem Diesel Motor Mechanic on 04-20-2010 Albumin mass conc 3.9 g/dL Normal 3.4-5.0 Compreh ensive Internal Medicine Work Phone: Comment on above: ORDERED LIPID ,LIVERDR.BONEZZI ORDERED LIPID,PSA,TEST,CMP Albumin/Globulin mass ratio 1.1 {RATIO} Normal 0.9-2.4 [facility] Work Phone: Comment on above: ORDERED LIPID ,LIVERDR.BONEZZLance ORDERED LIPID,PSA,TEST,CMP ALP enzyme act/vol 75 U/L Normal 50-136 [facility] Internal [facility] Work Phone: Comment on above: ORDERED LIPID ,LIVERDR.BONEZZLance ORDERED LIPID,PSA,TEST,CMP ALT enzyme act/vol 21 U/L Normal 12-78 [facility] Internal Medicine Work Phone: Comment on above: ORDERED LIPID ,LIVERDR.BONEZZI ORDERED LIPID,PSA,TEST,CMP Anion gap 3 molar conc 9 mmol/L Normal 5-15 Co [facility] [[email or web address]] Internal [facility] Work Phone: Anion gap molar conc 9 mmol/L Normal 5-15 [facility] Internal Medicine Work Phone: Comment on above: ORDERED LIPID ,LIVERDR.BONEZZI ORDERED LIPID,PSA,TEST,CMP AST enzyme act/vol 12 U/L Abnormal 15-37 [facility] Medicine Work Phone: Comment on above: ORDERED LIPID ,LIVERDR.BONEZZI ORDERED LIPID,PSA,TEST,CMP Bilirubin mass conc 0.40 mg/dL Normal 0.00-1.00 [facility] Internal [facility] Work Phone: Comment on above: ORDERED LIPID ,LIVERDR.BONEZZI ORDERED LIPID,PSA,TEST,CMP Calcium mass conc 8.9 mg/dL Normal 8.5-10.1 [facility] Work Phone: Comment on above: ORDERED LIPID ,LIVERDR.BONEZZI ORDERED LIPID,PSA,TEST,CMP Chloride molar conc 101 mmol/L Normal 98-107 [facility] Work Phone: Comment on above: ORDERED LIPID ,LIVERDR.BONEZZI ORDERED LIPID,PSA,TEST,CMP CO2 molar conc 28.0 mmol/L Normal 21.0-32.0 [facility] Work Phone: Comment on above: ORDERED LIPID ,LIVERDR.BONEZZI ORDERED LIPID,PSA,TEST,CMP Creatinine mass conc 1.1 mg/dL Normal 0.8-1.3 [facility] Work Phone: Comment on above: ORDERED LIPID ,LIVERDR.BONEZZI ORDERED LIPID,PSA,TEST,CMP GFR/1.73 sq M predicted among blacks MDRD vol rate/area (S/P/Bld) 88 mL/min/{1.73_m2} Normal Comprehensiv e Internal Medicine Work Phone: Comment on above: ORDERED LIPID ,LIVERDR.BONEZZI ORDERED LIPID,PSA,TEST,CMP GFR/1.73 sq M.predicted MDRD vol rate/area 73 mL/min/{1.73_m2} Normal Comprehensiv e Internal Medicine Work Phone: Comment on above: ORDERED LIPID ,LIVERDR.BONEZZI ORDERED LIPID,PSA,TEST,CMP Globulin Calculated mass conc (S) 3.4 g/dL Normal 2.7-4.2 [facility] Work Phone: Globulin mass conc (S) 3.4 g/dL Normal 2.7-4.2 Co [email or web address]] Internal Medicine Work Phone: Comment on above: ORDERED LIPID ,LIVERDR.BONEZZI ORDERED LIPID,PSA,TEST,CMP Glucose mass conc 83 mg/dL Normal 70-110 Compreh ensive Internal Medicine Work Phone: Comment on above: ORDERED LIPID ,LIVERDR.BONEZZI ORDERED LIPID,PSA,TEST,CMP Potassium molar conc 4.2 mmol/L Normal 3.5-5.1 [facility] Work Phone: Comment on above: ORDERED LIPID ,LIVERDR.BONEZZI ORDERED LIPID,PSA,TEST,CMP Protein mass conc 7.3 g/dL Normal 6.4-8.2 Compreh ensive Internal Medicine Work Phone: Comment on above: ORDERED LIPID ,LIVERDR.BONEZZI ORDERED LIPID,PSA,TEST,CMP Sodium molar conc 138 mmol/L Normal 136-145 Compreh ensive Internal Medicine Work Phone: Comment on above: ORDERED LIPID ,LIVERDR.BONEZZI ORDERED LIPID,PSA,TEST,CMP Urea nitrogen mass conc 13 mg/dL Normal 7-18 [facility] Work Phone: Comment on above: ORDERED LIPID ,LIVERDR.BONEZZI ORDERED LIPID,PSA,TEST,CMP Urea nitrogen/Creatinine mass ratio 11.8 {RATIO} Normal 10-20 [facility] Work Phone: Comment on above: ORDERED LIPID ,LIVERDR.BONEZZI ORDERED LIPID,PSA,TEST,CMP D BILIOrdered By: Zena crenshawr on 04-20-2010 Bilirubin.direct mass conc 0.10 mg/dL Normal 0.00-0.30 [facility] Work Phone: Comment on above: ORDERED LIPID ,LIVERDR.BONEZZI ORDERED LIPID,PSA,TEST,CMP LIPIDOrdered By: Zena calero on 04-20-2010 Cholesterol in HDL mass conc 52 mg/dL Normal [facility] Work Phone: Comment on above: Reference RangeHDL < 40 mg/dL Low HDL CholesterolHDL >or= 60 mg/dL High HDL Cholesterol ORDERED LIPID ,LIVERDR.BONEZZI ORDERED LIPID,PSA,TEST,CMP Cholesterol in LDL mass conc 89 mg/dL Normal 0-130 [facility] Work Phone: Comment on above: ORDERED LIPID ,LIVERDR.BONEZZLance ORDERED LIPID,PSA,TEST,CMP Cholesterol in VLDL mass conc 21 mg/dL Normal 5-40 [facility] Work Phone: Comment on above: ORDERED LIPID ,LIVERDR.BONEZZI ORDERED LIPID,PSA,TEST,CMP Cholesterol mass conc 162 mg/dL Normal [facility] Internal Medicine Work Phone: Comment on above: <200 mg/dL Desirable 200-240 mg/dL Borderline>240 mg/dL High Risk ORDERED LIPID ,LIVERDR.BONEZZI ORDERED LIPID,PSA,TEST,CMP Triglyceride mass conc 107 mg/dL Normal [facility] Internal Medicine Work Phone: Comment on above: Serum Triglycerides Reference IntervalNormal <150 mg/dLBorderline high 150 - 199 mg/dLHigh 200 - 499 mg/dLVery High > or = 500 mg/dL ORDERED LIPID ,LIVERDR.BONEZZI ORDERED LIPID,PSA,TEST,CMP PSA, SCREENOrdered By: Cheyanne Smallwood on 04-20-2010 Prostate specific Ag mass conc 0.5 ng/mL Normal 0.0-4.0 [facility] Work Phone: Comment on above: ORDERED LIPID ,LIVERDR.BONEZZI ORDERED LIPID,PSA,TEST,CMP TEST FR [id number] By: Sy stem Diesel Motor Mechanic on 04-20-2010 TEST FR [id number] 9.0 pg/mL Normal 7.2-24.0 Comprehens deny Internal Medicine Work Phone: Comment on above: Performed at: [address] [id number] Director: Phillip Barraza MD, Phone: [phone] ORDERED LIPID ,LIVERDR.BONEZZLance ORDERED LIPID,PSA,TEST,CMP TSHOrdered By: System Manage r on 04-20-2010 Thyrotropin Qn 2.70 {uIU/mL} Normal 0.358-3.74 Compreh ensive Internal Medicine Work Phone: Comment on above: ORDERED LIPID ,LIVERDR.BONEZZLance ORDERED LIPID,PSA,TEST,CMP BRAIN/HEAD W/WO CONTRASTOrde red By: Hair Colorist on 04-06-2010 BRAIN/HEAD W/WO CONTRAST See Note Normal [facility] Work Phone: Comment on above: Exam Number: [id number] CLINICAL:This is a 59-year-old male patient with history of headaches fortwo months. CT BRAIN WITH AND WITHOUT CONTRAST TECHNIQUE:Transaxial CT imaging of the brain was performed pre and postcontrast administration. The examination was performed withintravenous administration of 50 ml of Isovue 370 contrast material. COMPARISON:None. FINDINGS:Normal size of the ventricles and extra-axial spaces for thepatient's age. Normal white matter tracts of the supratentorialbrain. There is normal enhancement of the dural sinuses, andcortical veins. There are small punctate calcifications of thebasal ganglia which are seen in the aging brain as a normal variant. Normal basal cisterns. Normal brainstem. Normal cerebellum and visualized posterior fossa structures. There is no demonstrated extra-axial hemorrhage. There is nodemonstrated intraparenchymal or intraventricular hemorrhage. There is no demonstrated arterial abnormality. Normal soft tissue structures. Normal calvarium. Normal visualized sella turcica. Normal visualized skull base. There is a mild degree of mucosal thickening of the ethmoid sinusbilaterally. Normal visualized orbital structures. IMPRESSION:Mild degree of mucosal thickening of the ethmoid sinuses bilaterally. Reported By: SPENCER SEGOVIA CBCD,SMEAR DIFFOrdered By: Corinne rauschtem Diesel Motor Mechanic on 11-17-2009 Band form neutrophils/100 WBC (Bld) 1 % Normal 0-5 [facility] Work Phone: Comment on above: ORDERED RAMON ZHU ORDERED EVERYTHING Band form neutrophils/100 WBC Manual cnt (Bld) 1 % Normal 0-5 [facility] Work Phone: Eosinophils/100 WBC (Bld) 3 % Normal 0-5 [facility] Work Phone: Comment on above: ORDERED RAMON ZHU ORDERED EVERYTHING Eosinophils/100 WBC Auto (Bld) 3 % Normal 0-5 [facility] Work Phone: Erythrocyte distribution width Auto Ratio (RBC) 12.5 % Normal 11.6-14.6 [facility] Work Phone: Erythrocyte distribution width Ratio (RBC) 12.5 % Normal 11.6-14.6 [facility] Work Phone: Comment on above: ORDERED RAMON ZHU ORDERED EVERYTHING Hematocrit Auto Volume Fraction (Bld) 44.1 % Normal 40-54 [facility] Work Phone: Hematocrit Volume Fraction (Bld) 44.1 % Normal 40-54 [facility] Work Phone: Comment on above: ORDERED RAMON ZHU ORDERED EVERYTHING Hemoglobin mass conc (Bld) 15.3 g/dL Normal 14.0-18.0 [facility] Work Phone: Comment on above: ORDERED RAMON ZHU ORDERED EVERYTHING Lymphocytes/100 WBC (Bld) 21 % Normal 19-41 [facility] Work Phone: Comment on above: ORDERED RAMON ZHU ORDERED EVERYTHING Lymphocytes/100 WBC Auto (Bld) 21 % Normal 19-41 [facility] Work Phone: MCH Auto Entitic mass (RBC) 32.7 pg Abnormal 27.0-32.0 [facility] Work Phone: MCH Entitic mass (RBC) 32.7 pg Abnormal 27.0-32.0 [facility] Work Phone: Comment on above: ORDERED RAMON ZHU ORDERED EVERYTHING MCHC Auto mass conc (RBC) 34.6 g/dL Normal 32-36 [facility] Work Phone: MCHC mass conc (RBC) 34.6 g/dL Normal 32-36 [facility] Work Phone: Comment on above: ORDERED RAMON ZHU ORDERED EVERYTHING MCV Auto Entitic volume (RBC) 94.4 fL Abnormal 80-94 [facility] Work Phone: MCV Entitic volume (RBC) 94.4 fL Abnormal 80-94 [facility] Work Phone: Comment on above: ORDERED RAMON ZHU ORDERED EVERYTHING Monocytes/100 WBC (Bld) 7 % Normal 0-10 [facility] Work Phone: Comment on above: ORDERED RAMON ZHU ORDERED EVERYTHING Monocytes/100 WBC Auto (Bld) 7 % Normal 0-10 [facility] Work Phone: Neutrophils #/vol (Bld) 2.7 3/uL Normal 2.0-7.7 [facility] Internal Medicine Work Phone: Comment on above: ORDERED RAMON ZHU ORDERED EVERYTHING Neutrophils Auto #/vol (Bld) 2.7 3/uL Normal 2.0-7.7 [facility] Work Phone: Platelets #/vol (Bld) 244 10*3/uL Normal 150-450 [facility] Work Phone: Comment on above: ORDERED RAMON ZHU ORDERED EVERYTHING Platelets #/vol (Bld) SeeNote Normal [facility] Work Phone: Comment on above: Result: ADEQUATE ORDERED BLAYNE ZHUZI ORDERED EVERYTHING Platelets Auto #/vol (Bld) 244 10*3/uL Normal 150-450 [facility] Internal Medicine Work Phone: RBC #/vol (Bld) 4.67 {M/mm3} Normal 4.6-6.2 Compreh [facility] Internal Medicine Work Phone: Comment on above: ORDERED LIPID RAMON ORDERED EVERYTHING RBC Auto #/vol (Bld) 4.67 {M/mm3} Normal 4.6-6.2 Co [email or web address]] Internal Medicine Work Phone: WBC #/vol (Bld) 4.7 10*3/uL Normal 4.4-11.0 Comprehe [facility] Internal Medicine Work Phone: Comment on above: ORDERED LIPID RAMON ORDERED EVERYTHING WBC Auto #/vol (Bld) 4.7 10*3/uL Normal 4.4-11.0 [facility] Internal Medicine Work Phone: CBCD,SMEAR DIFF 68 % Normal 47-70 Comprehen [facility] Internal Medicine Work Phone: Comment on above: ORDERED RAMON ZHU ORDERED EVERYTHING CBCD,SMEAR DIFF SeeNote [facility] Work Phone: Comment on above: Result: ADEQUATE Result: NORM C+C ORDERED RAMON ZHU ORDERED EVERYTHING CBCD,SMEAR DIFF 100 1 Normal [facility] Work Phone: Comment on above: ORDERED RAMON ZHU ORDERED EVERYTHING COMP METABOLICOrdered By: Sy stem Diesel Motor Mechanic on 11-17-2009 Albumin mass conc 3.7 g/dL Normal 3.4-5.0 Compreh [facility] Internal Medicine Work Phone: Comment on above: ORDERED RAMON ZHU ORDERED EVERYTHING Albumin/Globulin mass ratio 1.0 {RATIO} Normal 0.9-2.4 [facility] Internal Medicine Work Phone: Comment on above: ORDERED LIPID RAMON ORDERED EVERYTHING ALP enzyme act/vol 69 U/L Normal 50-136 [facility] Internal Medicine Work Phone: Comment on above: ORDERED LIPID RAMON ORDERED EVERYTHING ALT enzyme act/vol 24 U/L Normal 12-78 [facility] Internal Medicine Work Phone: Comment on above: ORDERED RAMON ZHU ORDERED EVERYTHING Anion gap 3 molar conc 6 mmol/L Normal 5-15 [email or web address] Internal Medicine Work Phone: Anion gap molar conc 6 mmol/L Normal 5-15 [facility] Internal Medicine Work Phone: Comment on above: ORDERED RAMON ZHU ORDERED EVERYTHING AST enzyme act/vol 11 U/L Abnormal 15-37 [facility] Internal Medicine Work Phone: Comment on above: ORDERED RAMON ZHU ORDERED EVERYTHING Bilirubin mass conc 0.40 mg/dL Normal 0.00-1.00 [facility] Internal Medicine Work Phone: Comment on above: ORDERED RAMON ZHU ORDERED EVERYTHING Calcium mass conc 8.8 mg/dL Normal 8.5-10.1 [facility] Internal Medicine Work Phone: Comment on above: ORDERED RAMON ZHU ORDERED EVERYTHING Chloride molar conc 104 mmol/L Normal 98-107 [facility] Internal Medicine Work Phone: Comment on above: ORDERED RAMON ZHU ORDERED EVERYTHING CO2 molar conc 31.0 mmol/L Normal 21.0-32.0 [facility] Internal Medicine Work Phone: Comment on above: ORDERED RAMON ZHU ORDERED EVERYTHING Creatinine mass conc 1.1 mg/dL Normal 0.8-1.3 [facility] Internal Medicine Work Phone: Comment on above: ORDERED RAMON ZHU ORDERED EVERYTHING GFR/1.73 sq M predicted among blacks MDRD vol rate/area (S/P/Bld) 88 mL/min/{1.73_m2} Normal Comprehensiv e Internal Medicine Work Phone: Comment on above: ORDERED RAMON ZHU ORDERED EVERYTHING GFR/1.73 sq M.predicted MDRD vol rate/area 73 mL/min/{1.73_m2} Normal Comprehensiv e Internal Medicine Work Phone: Comment on above: ORDERED RAMON ZHU ORDERED EVERYTHING Globulin Calculated mass conc (S) 3.6 g/dL Normal 2.7-4.2 [facility] Work Phone: Globulin mass conc (S) 3.6 g/dL Normal 2.7-4.2 [facility] Internal Medicine Work Phone: Comment on above: ORDERED RAMON ZHU ORDERED EVERYTHING Glucose mass conc 86 mg/dL Normal 70-110 Compreh ensive Internal Medicine Work Phone: Comment on above: ORDERED RAMON ZHU ORDERED EVERYTHING Potassium molar conc 4.0 mmol/L Normal 3.5-5.1 Comp rehensive Internal Medicine Work Phone: Comment on above: ORDERED RAMON ZHU ORDERED EVERYTHING Protein mass conc 7.3 g/dL Normal 6.4-8.2 Compreh ensive Internal Medicine Work Phone: Comment on above: ORDERED RAMON ZHU ORDERED EVERYTHING Sodium molar conc 141 mmol/L Normal 136-145 Compreh ensive Internal Medicine Work Phone: Comment on above: ORDERED RAMON ZHU ORDERED EVERYTHING Urea nitrogen mass conc 15 mg/dL Normal 7-18 [facility] Work Phone: Comment on above: ORDERED RAMON ZHU ORDERED EVERYTHING Urea nitrogen/Creatinine mass ratio 13.6 {RATIO} Normal 10-20 [facility] Work Phone: Comment on above: ORDERED RAMON ZHU ORDERED EVERYTHING D BILIOrdered By: System Man ager on 11-17-2009 Bilirubin.direct mass conc 0.11 mg/dL Normal 0.00-0.30 [facility] Work Phone: Comment on above: ORDERED LIPID RAMON ORDERED EVERYTHING FREE [id number] By: System León castaneda on 11-17-2009 T3 free mass conc 2.4 pg/mL Normal 2.18-3.98 Compreh ensive Internal Medicine Work Phone: Comment on above: ORDERED LIPID RAMON ORDERED EVERYTHING LIPIDOrdered By: System Sara calero on 11-17-2009 Cholesterol in HDL mass conc 51 mg/dL Normal [facility] Work Phone: Comment on above: Reference RangeHDL < 40 mg/dL Low HDL CholesterolHDL >or= 60 mg/dL High HDL Cholesterol ORDERED LIPID RAMON ORDERED EVERYTHING Cholesterol in LDL mass conc 103 mg/dL Normal 0-130 [facility] Work Phone: Comment on above: ORDERED LIPID RAMON ORDERED EVERYTHING Cholesterol in VLDL mass conc 21 mg/dL Normal 5-40 [facility] Work Phone: Comment on above: ORDERED RAMON ZHU ORDERED EVERYTHING Cholesterol mass conc 175 mg/dL Normal Com prehensive Internal Medicine Work Phone: Comment on above: <200 mg/dL Desirable 200-240 mg/dL Borderline>240 mg/dL High Risk ORDERED RAMON ZHU ORDERED EVERYTHING Triglyceride mass conc 104 mg/dL Normal [facility] Work Phone: Comment on above: Serum Triglycerides Reference IntervalNormal <150 mg/dLBorderline high 150 - 199 mg/dLHigh 200 - 499 mg/dLVery High > or = 500 mg/dL ORDERED RAMON ZHU ORDERED EVERYTHING T4 FREE DIRECTOrdered By: Samson stem Diesel Motor Mechanic on 11-17-2009 T4 free mass conc 1.01 ng/dL Normal 0.76-1.46 Compreh ensive Internal Medicine Work Phone: Comment on above: ORDERED LIPID RAMON ORDERED EVERYTHING TSHOrdered By: System Manage r on 11-17-2009 Thyrotropin Qn 2.26 {uIU/mL} Normal 0.358-3.74 Compreh ensive Internal Medicine Work Phone: Comment on above: ORDERED LIPID ,LIVERDRNEGAR ORDERED EVERYTHING FREE [id number] By: System León castaneda on 06-17-2009 T3 free mass conc 2.6 pg/mL Normal 2.18-3.98 Compreh ensive Internal Medicine Work Phone: T4 FREE DIRECTOrdered By: Sy stem Diesel Motor Mechanic on 06-17-2009 T4 free mass conc 1.5 ng/dL Abnormal 0.76-1.146 Compreh ensive Internal Medicine Work Phone: TSHOrdered By: System Manage r on 06-17-2009 Thyrotropin Qn 1.87 {uIU/mL} Normal 0.358-3.74 Compreh ensive Internal Medicine Work Phone: LIVEROrdered By: System Sara calero on 05-25-2009 Albumin mass conc 3.8 g/dL Normal 3.4-5.0 Compreh ensive Internal Medicine Work Phone: ALP enzyme act/vol 76 U/L Normal 50-136 [facility] Work Phone: ALT enzyme act/vol 23 U/L Abnormal 30-65 [facility] Internal Medicine Work Phone: AST enzyme act/vol 6 U/L Abnormal 15-37 [facility] Internal Medicine Work Phone: Bilirubin mass conc 0.50 mg/dL Normal 0.00-1.00 Compr [facility] Internal Medicine Work Phone: Bilirubin.direct mass conc 0.13 mg/dL Normal 0.00-0.30 [facility] Internal Medicine Work Phone: Protein mass conc 7.3 g/dL Normal 6.4-8.2 Compreh ensive Internal Medicine Work Phone: TSHOrdered By: System Manage r on 04-14-2009 Thyrotropin Qn 7.020 {uIU/mL} Abnormal 0.450-4.500 Compr ensive Internal Medicine Work Phone: Comment on above: PERFORMED BY: [email or web address] Extremis TechnologySelect [facility] [id number] Thyroid Peroxidase (TPO) AbO rdered By: Hair Colorist on 04-14-2009 Thyroperoxidase Ab Qn [IU]/mL Normal 0-34 Com prehensive Internal Medicine Work Phone: Comment on above: PERFORMED BY: [employer] [id number] Thyroxine (T4) Free, Direct, SOrdered By: Hair Colorist on 04-14-2009 T4 free mass conc 1.09 ng/dL Normal 0.93-1.71 Compreh ensive Internal Medicine Work Phone: Comment on above: PERFORMED BY: Matches FashionSelect [facility] [id number] Triiodothyronine,Free,SerumO rdered By: Hair Colorist on 04-14-2009 T3 free mass conc 2.5 pg/mL Normal 2.0-4.4 Compreh ensive Internal Medicine Work Phone: Comment on above: PERFORMED BY: [employer] [facility] [id number] Written AuthorizationOrdered By: Hair Colorist on 04-14-2009 Written Authorization WAR Normal Com prehensive Internal Medicine Work Phone: Comment on above: Written Authorizatio n Received.Authorization received from SUMAN GAYTAN [id number] by Mayuri Layton PERFORMED BY: [id number] [facility] [id number] LIPIDOrdered By: Zena calero on 03-24-2009 Cholesterol in HDL mass conc 49 mg/dL Normal [facility] Work Phone: Comment on above: Reference Range HDL <40 mg/dL Low HDL Cholesterol HDL >or= 60 mg/dL High HDL Cholesterol Cholesterol in LDL mass conc 149 mg/dL Abnormal 0-130 [facility] Work Phone: Cholesterol in VLDL mass conc 21 mg/dL Normal 5-40 [facility] Work Phone: Cholesterol mass conc 219 mg/dL Abnormal Com prehensive Internal Medicine Work Phone: Comment on above: <200 mg/dL Desirable 200-240 mg/dL Borderline >240 mg/dL High Risk Triglyceride mass conc 105 mg/dL Normal [facility] Work Phone: Comment on above: Serum Triglycerides Reference Interval Normal <150 mg/dL Borderline high 150 - 199 mg/dL High 200 - 499 mg/dL Very High > or = 500 mg/dL LIVEROrdered By: Zena calero on 03-24-2009 Albumin mass conc 3.7 g/dL Normal 3.4-5.0 [facility] Work Phone: ALP enzyme act/vol 83 U/L Normal 50-136 Compre [facility] Internal Medicine Work Phone: ALT enzyme act/vol 22 U/L Abnormal 30-65 Compre [facility] Internal Medicine Work Phone: AST enzyme act/vol 6 U/L Abnormal 15-37 [facility] Work Phone: Bilirubin mass conc 0.40 mg/dL Normal 0.00-1.00 Compr [facility] Internal Medicine Work Phone: Bilirubin.direct mass conc 0.09 mg/dL Normal 0.00-0.30 [facility] Internal Medicine Work Phone: Protein mass conc 7.3 g/dL Normal 6.4-8.2 Compreh [facility] Internal Medicine Work Phone: CBCD,SMEAR DIFFOrdered By: Corinne juares Diesel Motor Mechanic on 02-20-2009 Eosinophils/100 WBC (Bld) 3 % Normal 0-5 [facility] Work Phone: Eosinophils/100 WBC Auto (Bld) 3 % Normal 0-5 [facility] Work Phone: Erythrocyte distribution width Auto Ratio (RBC) 12.7 % Normal 11.6-14.6 [facility] Work Phone: Erythrocyte distribution width Ratio (RBC) 12.7 % Normal 11.6-14.6 [facility] Work Phone: Hematocrit Auto Volume Fraction (Bld) 43.0 % Normal 40-54 [facility] Work Phone: Hematocrit Volume Fraction (Bld) 43.0 % Normal 40-54 [facility] Work Phone: Hemoglobin mass conc (Bld) 15.1 g/dL Normal 14.0-18.0 [facility] Work Phone: Lymphocytes/100 WBC (Bld) 44 % Abnormal 19-41 [facility] Work Phone: Lymphocytes/100 WBC Auto (Bld) 44 % Abnormal 19-41 [facility] Work Phone: MCH Auto Entitic mass (RBC) 32.4 pg Abnormal 27.0-32.0 [facility] Work Phone: MCH Entitic mass (RBC) 32.4 pg Abnormal 27.0-32.0 [facility] Work Phone: MCHC Auto mass conc (RBC) 35.0 g/dL Normal 32-36 [facility] Work Phone: MCHC mass conc (RBC) 35.0 g/dL Normal 32-36 Comp rehensive Internal Medicine Work Phone: MCV Auto Entitic volume (RBC) 92.4 fL Normal 80-94 [facility] Work Phone: MCV Entitic volume (RBC) 92.4 fL Normal 80-94 [facility] Work Phone: Monocytes/100 WBC (Bld) 2 % Normal 0-10 [facility] Work Phone: Monocytes/100 WBC Auto (Bld) 2 % Normal 0-10 [facility] Work Phone: Platelets #/vol (Bld) SeeNote Normal Com prehensive Internal Medicine Work Phone: Comment on above: Result: ADEQUATE Platelets #/vol (Bld) 264 10*3/uL Normal 150-450 [facility] Work Phone: Platelets Auto #/vol (Bld) 264 10*3/uL Normal 150-450 [facility] Internal Medicine Work Phone: RBC #/vol (Bld) 4.65 {M/mm3} Normal 4.6-6.2 Compreh ensive Internal Medicine Work Phone: RBC Auto #/vol (Bld) 4.65 {M/mm3} Normal 4.6-6.2 Co mprehensive Internal Medicine Work Phone: WBC #/vol (Bld) 4.7 10*3/uL Normal 4.4-11.0 Comprehe nsive Internal Medicine Work Phone: WBC Auto #/vol (Bld) 4.7 10*3/uL Normal 4.4-11.0 Com prehensive Internal Medicine Work Phone: CBCD,SMEAR DIFF 7 % Abnormal 0-5 Comprehen [facility] Internal Medicine Work Phone: CBCD,SMEAR DIFF 100 1 Normal Comprehen [facility] Internal Medicine Work Phone: CBCD,SMEAR DIFF SeeNote Normal Comprehen [facility] Internal Medicine Work Phone: Comment on above: Result: ADEQUATE Result: NORM C+C Result: NEGATIVE CBCD,SMEAR DIFF 44 % Abnormal 47-70 Comprehen [facility] Internal Medicine Work Phone: COMP METABOLICOrdered By: Samson stem Diesel Motor Mechanic on 02-20-2009 Albumin mass conc 3.9 g/dL Normal 3.4-5.0 [facility] Work Phone: Albumin/Globulin mass ratio 1.1 {RATIO} Normal 0.9-2.4 [facility] Work Phone: ALP enzyme act/vol 79 U/L Normal 50-136 Compre [facility] Internal Medicine Work Phone: ALT enzyme act/vol 22 U/L Abnormal 30-65 Compre [facility] Internal Medicine Work Phone: Anion gap 3 molar conc 6 mmol/L Normal 5-15 Co mprehensive Internal Medicine Work Phone: Anion gap molar conc 6 mmol/L Normal 5-15 Comp rehensive Internal Medicine Work Phone: AST enzyme act/vol 13 U/L Abnormal 15-37 Compre [facility] Internal Medicine Work Phone: Bilirubin mass conc 0.70 mg/dL Normal 0.00-1.00 Compr ehensive Internal Medicine Work Phone: Calcium mass conc 9.2 mg/dL Normal 8.5-10.1 Compreh ensive Internal Medicine Work Phone: Chloride molar conc 103 mmol/L Normal 98-107 Compr ehensive Internal Medicine Work Phone: CO2 molar conc 27.0 mmol/L Normal 21.0-32.0 Comprehen sive Internal Medicine Work Phone: Creatinine mass conc 0.9 mg/dL Normal 0.8-1.3 Comp rehensive Internal Medicine Work Phone: GFR/1.73 sq M predicted among blacks MDRD vol rate/area (S/P/Bld) 112 mL/min/{1.73_m2} Normal Comprehensi ve Internal Medicine Work Phone: GFR/1.73 sq M.predicted MDRD vol rate/area 92 mL/min/{1.73_m2} Normal Comprehensiv e Internal Medicine Work Phone: Globulin Calculated mass conc (S) 3.7 g/dL Normal 2.7-4.2 [facility] Work Phone: Globulin mass conc (S) 3.7 g/dL Normal 2.7-4.2 Co mprehensive Internal Medicine Work Phone: Glucose mass conc 85 mg/dL Normal 70-110 Compreh ensive Internal Medicine Work Phone: Potassium molar conc 3.9 mmol/L Normal 3.5-5.1 Comp rehensive Internal Medicine Work Phone: Protein mass conc 7.6 g/dL Normal 6.4-8.2 Compreh ensive Internal Medicine Work Phone: Sodium molar conc 136 mmol/L Normal 136-145 Compreh ensive Internal Medicine Work Phone: Urea nitrogen mass conc 13 mg/dL Normal 7-18 [facility] Work Phone: Urea nitrogen/Creatinine mass ratio 14.4 {RATIO} Normal 10-20 [facility] Work Phone: LIPIDOrdered By: System Sara calero on 02-20-2009 Cholesterol in HDL mass conc 50 mg/dL Normal [facility] Work Phone: Comment on above: Reference Range HDL <40 mg/dL Low HDL Cholesterol HDL >or= 60 mg/dL High HDL Cholesterol Cholesterol in LDL mass conc 143 mg/dL Abnormal 0-130 [facility] Work Phone: Cholesterol in VLDL mass conc 13 mg/dL Normal 5-40 [facility] Work Phone: Cholesterol mass conc 206 mg/dL Abnormal Com prehensive Internal Medicine Work Phone: Comment on above: <200 mg/dL Desirable 200-240 mg/dL Borderline >240 mg/dL High Risk Triglyceride mass conc 64 mg/dL Normal Co mprehensive Internal Medicine Work Phone: Comment on above: Serum Triglycerides Reference Interval Normal <150 mg/dL Borderline high 150 - 199 mg/dL High 200 - 499 mg/dL Very High > or = 500 mg/dL PSA, SCREENOrdered By: Breezeplaye m Diesel Motor Mechanic on 02-20-2009 Prostate specific Ag mass conc 0.5 ng/mL Normal 0.0-4.0 [facility] Work Phone: ROUTINE UAOrdered By: Hair Colorist on 02-20-2009 Clarity Nom (U) CLEAR Normal Comprehen sive Internal Medicine Work Phone: Color Nom (U) YELLOW Normal Comprehensi ve Internal Medicine Work Phone: Glucose mass conc SeeNote Normal Compreh ensive Internal Medicine Work Phone: Comment on above: Result: NEGATIVE Protein mass conc SeeNote Normal Compreh ensive Internal Medicine Work Phone: Comment on above: Result: NEGATIVE ROUTINE UA <=1.005 Normal 1.002-1.030 [facility] Work Phone: ROUTINE UA 6.5 1 Normal 5.0-8.0 [facility] Work Phone: ROUTINE UA 0.2 EU/dl Normal 0.2 - 1.0 [facility] Work Phone: ROUTINE UA YELLOW Normal [facility] Work Phone: ROUTINE UA CLEAR Normal [facility] Work Phone: TSHOrdered By: System Manage r on 02-20-2009 Thyrotropin Qn 5.68 {uIU/mL} Abnormal 0.358-3.74 Compreh ensive Internal Medicine Work Phone: AMYOrdered By: System Manage r on 11-19-2007 GRETTA 34 U/L Normal 25-115 [facility] Work Phone: C-REACTIVE PROTOrdered By: S Ardelyxtem Diesel Motor Mechanic on 11-19-2007 CRP mass conc 28.20 mg/L Abnormal 0.0-6.0 Comprehensi Internal Medicine Work Phone: Comment on above: Test performed using the Dimension C-Reactive ProteinExtended Range assay method. This assay meets the AHA/CDC 2003 recommendations fordetermining patients at high risk for cardiovasculardisease. Reference: High risk CRP >3.0 mg/L CBCD,SMEAR DIFFOrdered By: S ArdelyxteSERPs Diesel Motor Mechanic on 11-19-2007 Erythrocyte distribution width Auto Ratio (RBC) 13.2 % Normal 11.6-14.6 [facility] Work Phone: Erythrocyte distribution width Ratio (RBC) 13.2 % Normal 11.6-14.6 [facility] Work Phone: Hematocrit Auto Volume Fraction (Bld) 45.7 % Normal 40-54 [facility] Work Phone: Hematocrit Volume Fraction (Bld) 45.7 % Normal 40-54 [facility] Work Phone: Hemoglobin mass conc (Bld) 15.6 g/dL Normal 14.0-18.0 [facility] Work Phone: Lymphocytes/100 WBC (Bld) 2 % Abnormal 19-41 [facility] Work Phone: Lymphocytes/100 WBC Auto (Bld) 2 % Abnormal 19- [facility] Work Phone: MCH Auto Entitic mass (RBC) 31.3 pg Normal 27.0-32.0 [facility] Work Phone: MCH Entitic mass (RBC) 31.3 pg Normal 27.0-32.0 [facility] Work Phone: MCHC Auto mass conc (RBC) 34.2 g/dL Normal 32-36 [facility] Work Phone: MCHC mass conc (RBC) 34.2 g/dL Normal 32-36 Comp rehensive Internal Medicine Work Phone: MCV Auto Entitic volume (RBC) 91.5 fL Normal 80-94 [facility] Work Phone: MCV Entitic volume (RBC) 91.5 fL Normal 80-94 [facility] Work Phone: Monocytes/100 WBC (Bld) 6 % Normal 0-10 [facility] Work Phone: Monocytes/100 WBC Auto (Bld) 6 % Normal 0-10 [facility] Work Phone: Platelets #/vol (Bld) SeeNote Normal Com prehensive Internal Medicine Work Phone: Comment on above: Result: ADEQUATE Platelets #/vol (Bld) 304 10*3/uL Normal 150-450 [facility] Work Phone: Platelets Auto #/vol (Bld) 304 10*3/uL Normal 150-450 [facility] Internal Medicine Work Phone: RBC #/vol (Bld) 5.00 {M/mm3} Normal 4.6-6.2 Compreh ensive Internal Medicine Work Phone: RBC Auto #/vol (Bld) 5.00 {M/mm3} Normal 4.6-6.2 [facility] Work Phone: WBC #/vol (Bld) 5.9 10*3/uL Normal 4.4-11.0 Comprehe nsive Internal Medicine Work Phone: WBC Auto #/vol (Bld) 5.9 10*3/uL Normal 4.4-11.0 Com prehensive Internal Medicine Work Phone: CBCD,SMEAR DIFF SeeNote Normal Comprehen [facility] Internal Medicine Work Phone: Comment on above: Result: ADEQUATE Result: NORM C+C CBCD,SMEAR DIFF 77 % Abnormal 47-70 [facility] Internal Medicine Work Phone: CBCD,SMEAR DIFF 100 1 [facility] Work Phone: CBCD,SMEAR DIFF 15 % Abnormal 0-5 [facility] Internal Medicine Work Phone: COMP METABOLICOrdered By: Samson stem Diesel Motor Mechanic on 11-19-2007 Albumin mass conc 4.1 g/dL Normal 3.4-5.0 Compreh [facility] Internal Medicine Work Phone: Albumin/Globulin mass ratio 1.3 {RATIO} Normal 0.9-2.4 [facility] Internal Medicine Work Phone: ALP enzyme act/vol 85 U/L Normal 50-136 [facility] Internal Medicine Work Phone: ALT enzyme act/vol 35 [iU]/L Normal 30-65 [facility] Internal Medicine Work Phone: Anion gap 3 molar conc 8 mmol/L Normal 5-15 [email or web address] Internal Medicine Work Phone: Anion gap molar conc 8 mmol/L Normal 5-15 Comp [facility] Internal Medicine Work Phone: AST enzyme act/vol 20 U/L Normal 15-37 [facility] Internal Medicine Work Phone: Bilirubin mass conc 0.59 mg/dL Normal 0.00-1.00 [facility] Internal Medicine Work Phone: Calcium mass conc 9.0 mg/dL Normal 8.5-10.1 Compreh [facility] Internal Medicine Work Phone: Chloride molar conc 103 mmol/L Normal 98-107 [facility] Internal Medicine Work Phone: CO2 molar conc 29.6 mmol/L Normal 21.0-32.0 [facility] Internal Medicine Work Phone: Creatinine mass conc 1.1 mg/dL Normal 0.8-1.3 [facility] Internal Medicine Work Phone: Globulin Calculated mass conc (S) 3.1 g/dL Normal 2.7-4.2 [facility] Work Phone: Globulin mass conc (S) 3.1 g/dL Normal 2.7-4.2 Co mprehensive Internal Medicine Work Phone: Glucose mass conc 131 mg/dL Abnormal 70-110 Compreh ensive Internal Medicine Work Phone: Comment on above: Fasting Glucose resu lt greater than or equal to 126 mg/dL suggests DIABETES MELLITUS per A.D.A. criteria. Potassium molar conc 4.6 mmol/L Normal 3.5-5.1 Comp rehensive Internal Medicine Work Phone: Protein mass conc 7.2 g/dL Normal 6.4-8.2 Compreh ensive Internal Medicine Work Phone: Sodium molar conc 141 mmol/L Normal 136-145 [facility] Work Phone: Urea nitrogen mass conc 15 mg/dL Normal 7-18 [facility] Work Phone: Urea nitrogen/Creatinine mass ratio 13.6 {RATIO} Normal 10-20 [facility] Internal Medicine Work Phone: ESROrdered By: System Manage r on 11-19-2007 ESR Velocity (Bld) 4 mm/h Normal 0-20 [facility] Work Phone: LIPASEOrdered By: System Man ager on 11-19-2007 LIPASE 175 U/L Normal 114-286 [facility] Internal Medicine Work Phone: CHEST WITHOUT CONTRASTOrdere d By: Hair Colorist on 11-27-2006 CHEST WITHOUT CONTRAST See Note Normal [email or web address] Internal Medicine Work Phone: Comment on above: Exam Number: [id number] CT SCAN OF CHEST HISTORYLung nodule. Consecutive axial scans were obtained at 2.5 mm. intervals from thelung apices to the adrenals without intravenous contrast enhancement.The current study is compared to the examination of September 2005 andMay 2005. The 2 nodules identified in the right middle lobe areagain identified without change. In the right lower lobe adjacent tothe spine there is slight increased attenuation which is more markedthan seen previously. This is most likely to represent atelectasis orparenchymal scar with slight extension. The density does not look asfocal as a parenchymal nodule. There are no other nodular densitiesidentified within the lungs. There is no pleural effusion. No hilar,mediastinal, or axillary adenopathy is identified. What is seen ofthe adrenals is normal. However the inferior extent of the adrenalswere not included in the examination. IMPRESSION1) The 2 nodules identified in the right middle lobe on previousexaminations are unchanged. To complete 2 years of observation, anadditional followup CT in 6 months is recommended.2) There is slight increased density in the right lower lobemedially, along the spine. This is slightly more marked than seen onthe previous examinations but is likely to represent atelectasis. Reported By: SAVAGE PIÑA M.D. COLON BXOrdered By: Zena willson on 10-03-2006 COLON BX Normal [facility] Work Phone: Comment on above: OPERATION Colonoscop y w/ bx PRE-OPERATIVE DIAGNOSIS Screening TISSUE SUBMITTED Polyp distal sigmoid- r/o adenoma MICROSCOPIC DIAGNOSIS Polyp distal sigmoid, biopsy: Fragments of tubular adenoma. SJ: 10/04/06 GROSS DESCRIPTION Received in formalin labeled with patient name and number and designated polyp distal sigmoid are two irregular fragments of light layton soft tissue that in aggregate measure 0.5 x 0.3 x 0.1 cm. The specimen is totally submitted in one cassette. / : 10/03/06 TC:1 REPORT SIGNED: JENNIFER WHITE 10/04/06 CBCOrdered By: LUXA Carissa smart on 05-27-2006 Erythrocyte distribution width Auto Ratio (RBC) 12.8 % Normal 11.6-14.6 [facility] Work Phone: Erythrocyte distribution width Ratio (RBC) 12.8 % Normal 11.6-14.6 [facility] Work Phone: Hematocrit Auto Volume Fraction (Bld) 44.4 % Normal 40-54 [facility] Work Phone: Hematocrit Volume Fraction (Bld) 44.4 % Normal 40-54 [facility] Work Phone: Hemoglobin mass conc (Bld) 14.7 g/dL Normal 14.0-18.0 [facility] Work Phone: MCH Auto Entitic mass (RBC) 31.5 pg Normal 27.0-32.0 [facility] Work Phone: MCH Entitic mass (RBC) 31.5 pg Normal 27.0-32.0 [facility] Work Phone: MCHC Auto mass conc (RBC) 33.1 g/dL Normal 32-36 [facility] Work Phone: MCHC mass conc (RBC) 33.1 g/dL Normal 32-36 [facility] re[facility] Work Phone: MCV Auto Entitic volume (RBC) 95.2 fL Abnormal 80-94 [facility] Work Phone: MCV Entitic volume (RBC) 95.2 fL Abnormal 80-94 [facility] Work Phone: Platelets #/vol (Bld) 291 10*3/uL Normal 150-450 [facility] Work Phone: Platelets Auto #/vol (Bld) 291 10*3/uL Normal 150-450 [facility] Work Phone: RBC #/vol (Bld) 4.67 {M/mm3} Normal 4.6-6.2 [facility] Work Phone: RBC Auto #/vol (Bld) 4.67 {M/mm3} Normal 4.6-6.2 [facility] Work Phone: WBC #/vol (Bld) 4.2 10*3/uL Abnormal 4.4-11.0 Compre[facility] Work Phone: WBC Auto #/vol (Bld) 4.2 10*3/uL Abnormal 4.4-11.0 Com prehens[facility] Work Phone: COMP METABOLICOrdered By: Samson stem [employer] Motor Mechanic on 05-27-2006 Albumin mass conc 4.0 g/dL Normal 3.4-5.0 [facility] Work Phone: Albumin/Globulin mass ratio 1.4 {RATIO} Normal 0.9-2.4 [facility] Work Phone: ALP enzyme act/vol 68 U/L Normal 50-136 [facility] Work Phone: ALT enzyme act/vol 35 [iU]/L Normal 30-65 [facility] Work Phone: Anion gap 3 molar conc 3 mmol/L Abnormal 5-15 [email or web address] Work Phone: Anion gap molar conc 3 mmol/L Abnormal 5-15 [facility] Work Phone: AST enzyme act/vol 21 U/L Normal 15-37 [facility] Work Phone: Bilirubin mass conc 0.52 mg/dL Normal 0.00-1.00 Compr [facility] Internal Medicine Work Phone: Calcium mass conc 9.1 mg/dL Normal 8.5-10.1 Compreh [facility] Medicine Work Phone: Chloride molar conc 106 mmol/L Normal 98-107 Compr [facility] Internal Medicine Work Phone: CO2 molar conc 31.2 mmol/L Abnormal 22.0-29.0 Comprehen [facility] Internal Medicine Work Phone: Creatinine mass conc 1.0 mg/dL Normal 0.8-1.3 [facility] Work Phone: Globulin Calculated mass conc (S) 2.9 g/dL Normal 2.3-3.5 [facility] Work Phone: Globulin mass conc (S) 2.9 g/dL Normal 2.3-3.5 [email or web address] Internal Medicine Work Phone: Glucose mass conc 82 mg/dL Normal 70-110 Compreh [facility] Internal Medicine Work Phone: Potassium molar conc 4.3 mmol/L Normal 3.5-5.1 [facility] Work Phone: Protein mass conc 6.9 g/dL Normal 6.4-8.2 Compreh [facility] Medicine Work Phone: Sodium molar conc 140 mmol/L Normal 136-145 [facility] Work Phone: Urea nitrogen mass conc 14 mg/dL Normal 7-18 [facility] Work Phone: Urea nitrogen/Creatinine mass ratio 14.0 {RATIO} Normal 10-20 [facility] Work Phone: PFLIPOrdered By: System Sraa abdias on 05-27-2006 Cholesterol in HDL mass conc 46 mg/dL Normal [facility] Work Phone: Comment on above: Reference Range HDL <40 mg/dL Low HDL Cholesterol HDL >or= 60 mg/dL High HDL Cholesterol Cholesterol in LDL mass conc 82 mg/dL Normal 0-130 [facility] Work Phone: Cholesterol in VLDL mass conc 7 mg/dL Normal 5-40 [facility] Work Phone: Cholesterol mass conc 135 mg/dL Normal Com prehensive [facility] Work Phone: Comment on above: <200 mg/dL Desirable 200-240 mg/dL Borderline >240 mg/dL High Risk Triglyceride mass conc 36 mg/dL Normal [facility] Work Phone: Comment on above: Serum Triglycerides Reference Interval Normal <150 mg/dL Borderline high 150 - 199 mg/dL High 200 - 499 mg/dL Very High > or = 500 mg/dL PSA,TOT SCREENOrdered By: Sy stem [employer]el Motor Mechanic on 05-27-2006 Prostate specific Ag mass conc 0.46 ng/mL Normal 0.00-4.00 [facility] Work Phone: Comment on above: This test was perfor med using the TPSA method for the[employer] chemistry system.Values obtained with different assay methods cannot be usedinterchangably.When changing PSA assays in the course of monitoring apatient, additionaly sequential testing should be carriedout to confirm baseline values. Vital Signs Date Time Vital Sign Value Performing Clinician Facility 02-24-2025 08:22-0400 Body height 175.[address] Tee Ricardo MD Work Phone: [facility] 02-24-2025 08:22-0400 Body mass index (BMI) [Ratio] 26.6 kg/m2 Dr. Tee Ricardo MD Work Phone: [facility] 02-24-2025 08:22-0400 Body weight 81.[address] Tee Ricardo MD Work Phone: [phone] [place] [address] 02-24-2025 08:22-0400 Diastolic blood pressure 69 mm[Hg] Dr. Tee Ricardo MD Work Phone: 3([phone])[phone] [place] [address] 02-24-2025 08:22-0400 Heart rate 60 /min Dr. Tee Ricardo MD Work Phone: 2(925)336-464283 [place] [address] 02-24-2025 08:22-0400 Respiratory rate 16 /min Dr. Tee Ricardo MD Work Phone: 8(314)[phone] [place] [address] 02-24-2025 08:22-0400 Systolic blood pressure 113 mm[Hg] Dr. Tee Ricardo MD Work Phone: 4(601)[phone] [place] [address] 06-02-2023 13:28-0500 Body height 175.[address] Tee Ricardo Work Phone: 7(712)[phone] [place] [address] 06-02-2023 13:28-0500 Body mass index (BMI) [Ratio] 27.1 kg/m2 Dr. Tee Ricardo Work Phone: 8(180)[phone] [place] [address] 06-02-2023 13:28-0500 Body weight 83.[address] Tee Ricardo Work Phone: 5(707)[phone] [place] [address] 06-02-2023 13:28-0500 Diastolic blood pressure 65 mm[Hg] Dr. Tee Ricardo Work Phone: 6(807)550-891183 [place] [address] 06-02-2023 13:28-0500 Heart rate 53 /min Dr. Tee Ricardo Work Phone: 7([phone])[phone] [place] [address] 06-02-2023 13:28-0500 Respiratory rate 16 /min Dr. Tee Ricardo Work Phone: 9(291)[phone] [place] [address] 06-02-2023 13:28-0500 Systolic blood pressure 114 mm[Hg] Dr. Tee Ricardo Work Phone: 3(290)[phone] [place] [address] 01-02-2023 14:30-0400 Body height 175.[address] Shruthi Song Work Phone: [facility] 01-02-2023 14:30-0400 Body mass index (BMI) [Ratio] 27.4 kg/m2 Dr. Shruthi Song Work Phone: [facility] 01-02-2023 14:30-0400 Body weight 84.[address] Shruthi Song Work Phone: [facility] 01-02-2023 14:30-0400 Diastolic blood pressure 70 mm[Hg] Dr. Shruthi Song Work Phone: [facility] 01-02-2023 14:30-0400 Heart rate 63 /min Dr. Shruthi Song Work Phone: [facility] 01-02-2023 14:30-0400 Respiratory rate 18 /min Dr. Shruthi Song Work Phone: [facility] 01-02-2023 14:30-0400 SaO2% (BldA) [Mass fraction] 96 % Dr. Shruthi Song Work Phone: [facility] 01-02-2023 14:30-0400 Systolic blood pressure 127 mm[Hg] Dr. Shruthi Song Work Phone: [facility] 08-26-2022 08:42-0500 Body height 175.26 cm Ghazala Mota LPN [facility] Work Phone: 08-26-2022 08:42-0500 Body mass index (BMI) [Ratio] 27.17 kg/m2 Ghazala Mota LPN [facility]; [facility] Work Phone: 08-26-2022 08:42-0500 Body surface area Derived from formula 1.99 m2 Ghazala Mota LPN [facility]; [facility] Work Phone: 08-26-2022 08:42-0500 Body weight 83.46 kg Ghazala Mota LPN [facility]; [facility] Work Phone: 08-17-2022 13:09-0500 Body height 175.26 cm Shruthi Maribell DO Work Phone: [facility]; [facility] Work Phone: 08-17-2022 13:09-0500 Body mass index (BMI) [Ratio] 27.17 kg/m2 Shruthi Maribell DO Work Phone: [facility]; [facility] Work Phone: 08-17-2022 13:09-0500 Body surface area Derived from formula 1.99 m2 Shruthi Maribell DO Work Phone: [facility]; [facility] Work Phone: 08-17-2022 13:09-0500 Body weight 83.46 kg Shruthi Maribell DO Work Phone: [facility]; [facility] Work Phone: 08-17-2022 13:09-0500 Diastolic blood pressure 80 mm[Hg] Shruthi Maribell DO Work Phone: [facility]; [facility] Work Phone: 08-17-2022 13:09-0500 Heart rate 70 /min Shruthi Maribell DO Work Phone: [facility]; [facility] Work Phone: 08-17-2022 13:09-0500 Systolic blood pressure 120 mm[Hg] Shruthi Maribell DO Work Phone: [facility]; [facility] Work Phone: 05-23-2022 09:01-0400 Body height 175.26 cm Shavonne Galloway MA [facility]; [facility] Work Phone: 05-23-2022 09:01-0400 Body mass index (BMI) [Ratio] 27.21 kg/m2 Shavonne Galloway MA [facility]; [facility] Work Phone: 05-23-2022 09:01-0400 Body surface area Derived from formula 2 m2 Shavonne Galloway MA [facility]; [facility] Work Phone: 05-23-2022 09:01-0400 Body temperature 97 [degF] Shavonne Galloway MA [facility]; [facility] Work Phone: 05-23-2022 09:010400 Body weight 83.58 kg Shavonne Galloway MA [facility]; [facility] Work Phone: 05-23-2022 09:01-0400 Heart rate 71 /min Shavonne Galloway MA [facility]; [facility] Work Phone: 05-23-2022 09:01-0400 SaO2% (BldA) [Mass fraction] 96 % Shavonne Galloway MA [facility]; [facility] Work Phone: 02-23-2022 11:30-0400 Body height 175.26 cm Kaila Cotto [facility] Work Phone: 02-23-2022 11:30-0400 Body mass index (BMI) [Ratio] 27.21 kg/m2 Kaila Cotto [facility] Work Phone: 02-23-2022 11:30-0400 Body surface area Derived from formula 2 m2 Kaila Cotto [facility] Work Phone: 02-23-2022 11:30-0400 Body temperature 97.3 [degF] Kaila Cotto [facility] Work Phone: Comment on above: Method: Temporal 02-23-2022 11:30-0400 Body weight 83.58 kg Kaila Cotto [facility] Work Phone: 02-23-2022 11:30-0400 Diastolic blood pressure 58 mm[Hg] Kaila Cotto [facility]; [facility] Work Phone: Comment on above: Patient Position: Sitting; Cuff Location : Left Arm; Cuff Size: Standard 02-23-2022 11:30-0400 Heart rate 67 /min Kaila Cotto [facility] Work Phone: Comment on above: Pattern: Regular 02-23-2022 11:30-0400 Respiratory rate 16 /min Kaial Cotto [facility] Work Phone: Comment on above: Pattern: Unlabored 02-23-2022 11:30-0400 SaO2% (BldA) [Mass fraction] 97 % Kaila Cotto [facility] Work Phone: Comment on above: Room air 02-23-2022 11:30-0400 Systolic blood pressure 98 mm[Hg] Kaila Cotto [facility] Work Phone: Comment on above: Patient Position: Sitting; Cuff Location : Left Arm; Cuff Size: Standard 12-14-2020 14:13-0400 Body height 175.26 cm Sam Vaca LPN [facility]; [facility] Work Phone: 12-14-2020 14:13-0400 Body mass index (BMI) [Ratio] 27.36 kg/m2 Sam Vaca LPN [facility]; [facility] Work Phone: 12-14-2020 14:13-0400 Body surface area Derived from formula 2 m2 Sam Vaca LPN [facility]; [facility] Work Phone: 12-14-2020 14:13-0400 Body temperature 97.3 [degF] Sam Vaca LPN [facility]; [facility] Work Phone: Comment on above: Method: Infrared 12-14-2020 14:13-0400 Body weight 84.03 kg Sam Vaca LPN [facility]; [facility] Work Phone: 12-14-2020 14:13-0400 Diastolic blood pressure 76 mm[Hg] Sam Vaca LPN [facility]; [facility] Work Phone: Comment on above: Patient Position: Sitting; Cuff Location : Left Arm; Cuff Size: Standard 12-14-2020 14:13-0400 Heart rate 73 /min Sam Vaca LPN [facility]; [facility] Work Phone: Comment on above: Pattern: Regular 12-14-2020 14:13-0400 Respiratory rate 16 /min Sam Vaca LPN [facility]; [facility] Work Phone: Comment on above: Pattern: Unlabored 12-14-2020 14:13-0400 SaO2% (BldA) [Mass fraction] 96 % Sam Vaca [employer] [facility]; [facility] Work Phone: Comment on above: Room air 12-14-2020 14:13-0400 Systolic blood pressure 130 mm[Hg] Sam Vaca [employer] [facility]; [facility] Work Phone: Comment on above: Patient Position: Sitting; Cuff Location : Left Arm; Cuff Size: Standard 07-09-2020 07:01-0500 BMI (Body Mass Index) 27.36 kg/m2 Iveth Blanco [facility] Work Phone: 07-09-2020 07:01-0500 Body Temperature 98 [degF] Iveth Blanco [facility] Work Phone: 07-09-2020 07:01-0500 Body weight 84.03 kg Iveth Blanco [facility] Work Phone: 07-09-2020 07:01-0500 BSA (Body Surface Area) 2 m2 Iveth Blanco [facility] Work Phone: 07-09-2020 07:01-0500 Height 175.26 cm Iveth Blanco [facility] Work Phone: 05-11-2020 09:31-0400 BMI (Body Mass Index) 27.36 kg/m2 Julee Seaman [facility] Work Phone: 05-11-2020 09:31-0400 Body weight 84.03 kg Julee Seaman [facility] Work Phone: 05-11-2020 09:31-0400 BSA (Body Surface Area) 2 m2 [facility] Work Phone: 05-11-2020 09:31-0400 Height 175.26 cm [facility] Work Phone: 06-12-2019 14:06-0500 BMI (Body Mass Index) 27.36 kg/m2 Kaila Cotto [facility] Work Phone: 06-12-2019 14:06-0500 Body Temperature 97.2 [degF] Kaila Cotto [facility] Work Phone: 06-12-2019 14:06-0500 Body weight 84.03 kg Kaila Cotto [facility] Work Phone: 06-12-2019 14:06-0500 BP Diastolic 58 mm[Hg] Kaila Cotto [facility] Work Phone: Comment on above: Patient Position: Sitting; Cuff Location : Left Arm; Cuff Size: Standard 06-12-2019 14:06-0500 BP Systolic 98 mm[Hg] Kaila Cotto [facility] Work Phone: Comment on above: Patient Position: Sitting; Cuff Location : Left Arm; Cuff Size: Standard 06-12-2019 14:06-0500 BSA (Body Surface Area) 2 m2 Kaila Cotto [facility] Work Phone: 06-12-2019 14:06-0500 Height 175.26 cm Kaila Cotto [facility] Work Phone: 06-12-2019 14:06-0500 Pulse (Heart Rate) 75 /min Kaila Cotto [facility] Work Phone: Comment on above: Pattern: Regular 06-12-2019 14:06-0500 Pulse Oximetry 95 % Shruthi Song [facility] Work Phone: Comment on above: Room air 06-12-2019 14:06-0500 Respiratory Rate 16 /min Kaila Cotto [facility] Work Phone: Comment on above: Pattern: Unlabored 06-12-2019 14:06-0500 SaO2% (BldA) [Mass fraction] 95 % Kaila Cotto CMA [facility] Work Phone: Comment on above: Room air 06-20-2018 11:13-0500 BMI (Body Mass Index) 27.21 kg/m2 Leni Esteban [facility] Internal [facility] Work Phone: 06-20-2018 11:13-0500 Body Temperature 97.4 [degF] Leni Odom [facility] Work Phone: Comment on above: Method: Temporal 06-20-2018 11:13-0500 Body weight 83.58 kg Leni Odom [facility] Work Phone: 06-20-2018 11:13-0500 BP Diastolic 76 mm[Hg] Leni Odom [facility] Work Phone: Comment on above: Patient Position: Sitting; Cuff Location : Left Arm; Cuff Size: Standard 06-20-2018 11:13-0500 BP Systolic 140 mm[Hg] Leni Odom [facility] Work Phone: Comment on above: Patient Position: Sitting; Cuff Location : Left Arm; Cuff Size: Standard 06-20-2018 11:13-0500 BSA (Body Surface Area) 2 m2 Leni Odom [facility] Work Phone: 06-20-2018 11:13-0500 Height 175.26 cm Leni Odom [facility] Work Phone: 06-20-2018 11:13-0500 Pulse (Heart Rate) 79 /min Leni Odom [facility] Work Phone: Comment on above: Pattern: Regular 06-20-2018 11:13-0500 Pulse Oximetry 99 % Shruthi Garzaon [facility] Work Phone: Comment on above: Room air 06-20-2018 11:13-0500 Respiratory Rate 16 /min Leni Odom [facility] Work Phone: Comment on above: Pattern: Unlabored 06-20-2018 11:13-0500 SaO2% (BldA) [Mass fraction] 99 % Leni Odom [facility] Work Phone: Comment on above: Room air 06-20-2018 11:13-0500 Weight 83.58 kg Shruthi Song [facility] Work Phone: 04-04-2018 15:03-0400 BMI (Body Mass Index) 27.76 kg/m2 Kaila Cotto [facility] Work Phone: 04-04-2018 15:03-0400 Body Temperature 97 [degF] Kaila Cotto [facility] Work Phone: Comment on above: Method: Temporal 04-04-2018 15:03-0400 Body weight 85.28 kg aKila Cotto [facility] Work Phone: 04-04-2018 15:03-0400 BP Diastolic 76 mm[Hg] Kaila Cotto [facility] Work Phone: Comment on above: Patient Position: Sitting; Cuff Location : Left Arm; Cuff Size: Standard 04-04-2018 15:03-0400 BP Systolic 110 mm[Hg] Kaila Cotto [facility] Work Phone: Comment on above: Patient Position: Sitting; Cuff Location : Left Arm; Cuff Size: Standard 04-04-2018 15:03-0400 BSA (Body Surface Area) 2.01 m2 Kaila Cotto [facility] Work Phone: 04-04-2018 15:03-0400 Height 175.26 cm Kaila Cotto [facility] Work Phone: 04-04-2018 15:03-0400 Pulse (Heart Rate) 71 /min Kaila Cotto [facility] Work Phone: Comment on above: Pattern: Regular 04-04-2018 15:03-0400 Pulse Oximetry 96 % Shruthi Song [facility] Work Phone: Comment on above: Room air 04-04-2018 15:03-0400 Respiratory Rate 16 /min Kaila Cotto [facility] Work Phone: Comment on above: Pattern: Unlabored 04-04-2018 15:03-0400 SaO2% (BldA) [Mass fraction] 96 % Kaila Cotto CMA [facility] Work Phone: Comment on above: Room air 04-04-2018 15:03-0400 Weight 85.28 kg Shruthi Song [facility] Work Phone: 03-29-2018 08:59-0400 BMI (Body Mass Index) 27.49 kg/m2 Leni Odom [facility] Work Phone: 03-29-2018 08:59-0400 Body Temperature 97.1 [degF] Leni Odom [facility] Work Phone: Comment on above: Method: Temporal 03-29-2018 08:59-0400 Body weight 84.43 kg Leni Odom [facility] Work Phone: 03-29-2018 08:59-0400 BP Diastolic 84 mm[Hg] Leni Odom [facility] Work Phone: Comment on above: Patient Position: Sitting; Cuff Location : Left Arm; Cuff Size: Standard 03-29-2018 08:59-0400 BP Systolic 124 mm[Hg] Leni Odom [facility] Work Phone: Comment on above: Patient Position: Sitting; Cuff Location : Left Arm; Cuff Size: Standard 03-29-2018 08:59-0400 BSA (Body Surface Area) 2 m2 Leni Odom [facility] Work Phone: 03-29-2018 08:59-0400 Height 175.26 cm Leni Odom [facility] Work Phone: 03-29-2018 08:59-0400 Pulse (Heart Rate) 71 /min Leni Odom [facility] Work Phone: Comment on above: Pattern: Regular 03-29-2018 08:59-0400 Pulse Oximetry 98 % Shruthi Song [facility] Work Phone: Comment on above: Room air 03-29-2018 08:59-0400 Respiratory Rate 16 /min Leni Odom [facility] Work Phone: Comment on above: Pattern: Unlabored 03-29-2018 08:59-0400 SaO2% (BldA) [Mass fraction] 98 % Leni Odom [facility] Work Phone: Comment on above: Room air 03-29-2018 08:59-0400 Weight 84.43 kg Shruthi Song [facility] Work Phone: 02-23-2018 07:39-0400 BMI (Body Mass Index) 27.49 kg/m2 Layla Ríos RN [facility] Work Phone: 02-23-2018 07:39-0400 Body weight 84.43 kg Layla Ríos RN [facility] Work Phone: 02-23-2018 07:39-0400 BP Diastolic 70 mm[Hg] Layla Ríos RN [facility] Work Phone: Comment on above: Patient Position: Sitting; Cuff Location : Left Arm; Cuff Size: Large 02-23-2018 07:39-0400 BP Systolic 138 mm[Hg] Layla Ríos RN [facility] Work Phone: Comment on above: Patient Position: Sitting; Cuff Location : Left Arm; Cuff Size: Large 02-23-2018 07:39-0400 BSA (Body Surface Area) 2 m2 Layla Ríos RN [facility] Work Phone: 02-23-2018 07:39-0400 Height 175.26 cm Layla Ríos RN [facility] Work Phone: 02-23-2018 07:39-0400 Pulse (Heart Rate) 62 /min Layla Ríos RN [facility] Work Phone: Comment on above: Pattern: Regular 02-23-2018 07:39-0400 Pulse Oximetry 97 % Shruthi Song [facility] Work Phone: Comment on above: Room air 02-23-2018 07:39-0400 Respiratory Rate 18 /min Layla Ríos RN [facility] Work Phone: Comment on above: Pattern: Unlabored 02-23-2018 07:39-0400 SaO2% (BldA) [Mass fraction] 97 % Layla Ríos RN [facility] Work Phone: Comment on above: Room air 02-23-2018 07:39-0400 Weight 84.43 kg Shruthi Song [facility] Work Phone: 02-09-2018 07:33-0400 BMI (Body Mass Index) 27.93 kg/m2 Layla Ríos RN [facility] Work Phone: 02-09-2018 07:33-0400 Body weight 85.79 kg Layla Ríos RN [facility] Work Phone: 02-09-2018 07:33-0400 BP Diastolic 82 mm[Hg] Layla Ríos RN [facility] Work Phone: Comment on above: Patient Position: Sitting; Cuff Location : Left Arm; Cuff Size: Large 02-09-2018 07:33-0400 BP Systolic 136 mm[Hg] Layla Ríos RN [facility] Work Phone: Comment on above: Patient Position: Sitting; Cuff Location : Left Arm; Cuff Size: Large 02-09-2018 07:33-0400 BSA (Body Surface Area) 2.02 m2 Layla Ríos RN [facility] Work Phone: 02-09-2018 07:33-0400 Height 175.26 cm Layla Ríos RN [facility] Work Phone: 02-09-2018 07:33-0400 Pulse (Heart Rate) 68 /min Layla Ríos RN [facility] Work Phone: Comment on above: Pattern: Regular 02-09-2018 07:33-0400 Pulse Oximetry 98 % Shruthi Song [facility] Work Phone: Comment on above: Room air 02-09-2018 07:33-0400 Respiratory Rate 17 /min Layla Ríos RN [facility] Work Phone: Comment on above: Pattern: Unlabored 02-09-2018 07:33-0400 SaO2% (BldA) [Mass fraction] 98 % Layla Ríos RN [facility] Work Phone: Comment on above: Room air 02-09-2018 07:33-0400 Weight 85.79 kg Shruthi Song [facility] Work Phone: 11-16-2017 14:01-0400 BMI (Body Mass Index) 27.93 kg/m2 Layla Ríos RN [facility] Work Phone: 11-16-2017 14:01-0400 Body weight 85.79 kg Layla Ríos RN [facility] Work Phone: 11-16-2017 14:01-0400 BP Diastolic 82 mm[Hg] Layla Ríos RN [facility] Work Phone: Comment on above: Patient Position: Standing; Cuff Locatio n: Left Arm; Cuff Size: Large 11-16-2017 14:01-0400 BP Systolic 128 mm[Hg] Layla Ríos RN [facility] Work Phone: Comment on above: Patient Position: Standing; Cuff Locatio n: Left Arm; Cuff Size: Large 11-16-2017 14:01-0400 BSA (Body Surface Area) 2.02 m2 Layla Ríos RN [facility] Work Phone: 11-16-2017 14:01-0400 Height 175.26 cm Layla Ríos RN [facility] Work Phone: 11-16-2017 14:01-0400 Pulse (Heart Rate) 65 /min Layla Ríos RN [facility] Work Phone: Comment on above: Pattern: Regular 11-16-2017 14:01-0400 Pulse Oximetry 95 % Shruthi Song [facility] Work Phone: Comment on above: Room air 11-16-2017 14:01-0400 Respiratory Rate 18 /min Layla Ríos RN [facility] Work Phone: Comment on above: Pattern: Unlabored 11-16-2017 14:01-0400 SaO2% (BldA) [Mass fraction] 95 % Layla Ríos RN [facility] Work Phone: Comment on above: Room air 11-16-2017 14:01-0400 Weight 85.79 kg Shruthi Song [facility] Work Phone: 10-19-2017 07:44-0400 BMI (Body Mass Index) 28.08 kg/m2 Layla Ríos RN [facility] Work Phone: 10-19-2017 07:44-0400 Body weight 86.24 kg Layla Ríos RN [facility] Work Phone: 10-19-2017 07:44-0400 BP Diastolic 84 mm[Hg] Layla Ríos RN [facility] Work Phone: Comment on above: Patient Position: Sitting; Cuff Location : Left Arm; Cuff Size: Large 10-19-2017 07:44-0400 BP Systolic 122 mm[Hg] Layla Ríos RN [facility] Work Phone: Comment on above: Patient Position: Sitting; Cuff Location : Left Arm; Cuff Size: Large 10-19-2017 07:44-0400 BSA (Body Surface Area) 2.02 m2 Layla Ríos RN [facility] Work Phone: 10-19-2017 07:44-0400 Height 175.26 cm Layla Ríos RN [facility] Work Phone: 10-19-2017 07:44-0400 Pulse (Heart Rate) 62 /min Layla Ríos RN [facility] Work Phone: Comment on above: Pattern: Regular 10-19-2017 07:44-0400 Pulse Oximetry 97 % Shurthi Song [facility] Work Phone: Comment on above: Room air 10-19-2017 07:44-0400 SaO2% (BldA) [Mass fraction] 97 % Layla Ríos RN [facility] Work Phone: Comment on above: Room air 10-19-2017 07:44-0400 Weight 86.24 kg Shruthi Song [facility] Work Phone: 12-29-2016 10:18-0400 Heart rate 60 /min Christina Zaman [facility] Work Phone: 12-29-2016 10:02-0400 BMI (Body Mass Index) 27.91 kg/m2 Harumi DeFinis [facility] Work Phone: 12-29-2016 10:02-0400 Body weight 85.73 kg Harumi DeFinis [facility] Work Phone: 12-29-2016 10:02-0400 BP Diastolic 74 mm[Hg] Harumi DeFinis [facility] Work Phone: 12-29-2016 10:02-0400 BP Systolic 122 mm[Hg] Harumi DeFinis [facility] Work Phone: 12-29-2016 10:02-0400 Pulse (Heart Rate) 64 /min Harumi DeFinis [facility] Work Phone: 12-29-2016 10:02-0400 Respiratory Rate 16 /min Harumi DeFinis [facility] Work Phone: 12-29-2016 10:02-0400 Weight 85.73 kg Harumi DeFinis [facility] Work Phone: 10-25-2016 13:19-0400 BMI (Body Mass Index) 28.11 kg/m2 Ghazala Slarb [employer] [facility] Work Phone: 10-25-2016 13:19-0400 Body Temperature 97.4 [degF] Ghazala Slarb [employer] [facility] Work Phone: 10-25-2016 13:19-0400 Body weight 86.35 kg Ghazala Slarb [employer] [facility] Work Phone: 10-25-2016 13:19-0400 BP Diastolic 78 mm[Hg] Ghazala Slarb [employer] [facility] Work Phone: Comment on above: Patient Position: Sitting; Cuff Location : Left Arm; Cuff Size: Standard 10-25-2016 13:19-0400 BP Systolic 116 mm[Hg] Ghazala Slarb [employer] [facility] Work Phone: Comment on above: Patient Position: Sitting; Cuff Location : Left Arm; Cuff Size: Standard 10-25-2016 13:190400 BSA (Body Surface Area) 2.02 m2 Ghazala Slarb [employer] [facility] Work Phone: 10-25-2016 13:19-0400 Height 175.26 cm Ghazala Slarb [employer] [facility] Work Phone: 10-25-2016 13:19-0400 Pulse (Heart Rate) 81 /min [facility]ala [facility] Work Phone: Comment on above: Pattern: Regular 10-25-2016 13:19-0400 Pulse Oximetry 97 % Shruthi Song [facility] Work Phone: Comment on above: Room air 10-25-2016 13:19-0400 Respiratory Rate 16 /min Ghazala Mota LPN [facility] Work Phone: Comment on above: Pattern: Unlabored 10-25-2016 13:19-0400 SaO2% (BldA) [Mass fraction] 97 % [facility] Work Phone: Comment on above: Room air 10-25-2016 13:-0400 Weight 86.35 kg Shruthi Song [facility] Work Phone: 07-15-2016 07:11-0500 BMI (Body Mass Index) 27.02 kg/m2 Minoo Roman [facility] Work Phone: 07-15-2016 07:11-0500 Body Temperature 97.4 [degF] Minoo Roman [facility] Work Phone: Comment on above: Method: Temporal 07-15-2016 07:11-0500 Body weight 83.01 kg Minoo Roman [facility] Work Phone: 07-15-2016 07:11-0500 BP Diastolic 64 mm[Hg] Minoo Roman [facility] Work Phone: Comment on above: Patient Position: Sitting; Cuff Location : Left Arm; Cuff Size: Standard 07-15-2016 07:11-0500 BP Systolic 118 mm[Hg] Minoo Roman [facility] Work Phone: Comment on above: Patient Position: Sitting; Cuff Location : Left Arm; Cuff Size: Standard 07-15-2016 07:11-0500 BSA (Body Surface Area) 1.99 m2 Minoo Roman [facility] Work Phone: 07-15-2016 07:11-0500 Height 175.26 cm Minoo Roman [facility] Work Phone: 07-15-2016 07:11-0500 Pulse (Heart Rate) 68 /min Minoo Roman [facility] Work Phone: Comment on above: Pattern: Regular 07-15-2016 07:11-0500 Pulse Oximetry 97 % Shruthi Song [facility] Work Phone: Comment on above: Room air 07-15-2016 07:11-0500 Respiratory Rate 16 /min Minoo Roman [facility] Work Phone: Comment on above: Pattern: Unlabored 07-15-2016 07:11-0500 SaO2% (BldA) [Mass fraction] 97 % Minoo Roman [facility] Work Phone: Comment on above: Room air 07-15-2016 07:11-0500 Weight 83.01 kg Shruthi Song [facility] Work Phone: 07-04-2016 14:11-0500 BMI (Body Mass Index) 27.17 kg/m2 Demetri Valverde MD [facility] Work Phone: 07-04-2016 14:11-0500 Body weight 83.46 kg Christina Zaman [facility] Work Phone: 07-04-2016 14:11-0500 BP Diastolic 68 mm[Hg] Demetri Valverde MD [facility] Work Phone: 07-04-2016 14:11-0500 BP Systolic 118 mm[Hg] Demetri [facility] Work Phone: 07-04-2016 14:11-0500 BSA (Body Surface Area) 2 m2 [facility]ri [facility] Work Phone: 07-04-2016 14:11-0500 Pulse (Heart Rate) 80 /min [facility]ri [facility] Work Phone: 07-04-2016 14:11-0500 Respiratory Rate 20 /min Demetri Valverde MD [facility] Work Phone: 07-04-2016 14:11-0500 Weight 83.46 kg Demetri Valverde MD [facility] Work Phone: 02-29-2016 08:56-0400 BMI (Body Mass Index) 27.02 kg/m2 Layla Ríos RN [facility] Work Phone: 02-29-2016 08:56-0400 Body weight 83.01 kg Layla Ríos RN [facility] Work Phone: 02-29-2016 08:56-0400 BP Diastolic 80 mm[Hg] Layla Ríos RN [facility] Work Phone: Comment on above: Patient Position: Sitting; Cuff Location : Left Arm; Cuff Size: Large 02-29-2016 08:56-0400 BP Systolic 128 mm[Hg] Layla Ríos RN [facility] Work Phone: Comment on above: Patient Position: Sitting; Cuff Location : Left Arm; Cuff Size: Large 02-29-2016 08:56-0400 BSA (Body Surface Area) 1.99 m2 Layla Ríos RN [facility] Work Phone: 02-29-2016 08:56-0400 Height 175.26 cm Layla Ríos RN [facility] Work Phone: 02-29-2016 08:56-0400 Pulse (Heart Rate) 74 /min Layla Ríos RN [facility] Work Phone: Comment on above: Pattern: Regular 02-29-2016 08:56-0400 Pulse Oximetry 96 % Shruthi Song [facility] Work Phone: Comment on above: Room air 02-29-2016 08:56-0400 Respiratory Rate 18 /min Layla Ríos RN [facility] Work Phone: Comment on above: Pattern: Unlabored 02-29-2016 08:56-0400 SaO2% (BldA) [Mass fraction] 96 % Layla Ríos RN [facility] Work Phone: Comment on above: Room air 02-29-2016 08:56-0400 Weight 83.01 kg Shruthi Song [facility] Work Phone: 02-08-2016 14:20-0400 BMI (Body Mass Index) 27.02 kg/m2 Ghazala Alexsandrarb [employer] [facility] Work Phone: 02-08-2016 14:20-0400 Body Temperature 98.2 [degF] Ghazala Alexsandrarb [employer] [facility] Work Phone: 02-08-2016 14:20-0400 Body weight 83.01 kg Ghazala Uptonrb [employer] [facility] Work Phone: 02-08-2016 14:20-0400 BP Diastolic 72 mm[Hg] Ghazala Slarb [employer] [facility] Work Phone: Comment on above: Patient Position: Sitting; Cuff Location : Left Arm; Cuff Size: Standard 02-08-2016 14:20-0400 BP Systolic 114 mm[Hg] Ghazala Alexsandrarb [employer] [facility] Work Phone: Comment on above: Patient Position: Sitting; Cuff Location : Left Arm; Cuff Size: Standard 02-08-2016 14:20-0400 BSA (Body Surface Area) 1.99 m2 Ghazala Alexsandrarb [employer] [facility] Work Phone: 02-08-2016 14:20-0400 Height 175.26 cm Gahzala Slarb [employer] [facility] Work Phone: 02-08-2016 14:20-0400 Pulse (Heart Rate) 63 /min Ghazala Uptonrb [employer] [facility] Work Phone: Comment on above: Pattern: Regular 02-08-2016 14:20-0400 Pulse Oximetry 98 % Shruthi Song [facility] Work Phone: Comment on above: Room air 02-08-2016 14:20-0400 Respiratory Rate 17 /min Ghazala Alexsandrarb [employer] [facility] Work Phone: Comment on above: Pattern: Unlabored 02-08-2016 14:20-0400 SaO2% (BldA) [Mass fraction] 98 % Ghazala Mota [facility] Work Phone: Comment on above: Room air 02-08-2016 14:20-0400 Weight 83.01 kg Shruthi Song [facility] Work Phone: 12-29-2015 13:28-0400 BMI (Body Mass Index) 27.02 kg/m2 BRITNEY Hazel [facility] Work Phone: 12-29-2015 13:28-040 Body Temperature 97.6 [degF] BRITNEY Hazel [facility] Work Phone: Comment on above: Method: Temporal 12-29-2015 13:040 Body weight 83.01 kg BRITNEY Hazel [facility] Work Phone: 12-29-2015 13:28-0400 BP Diastolic 60 mm[Hg] BRITNEY Hazel [facility] Work Phone: Comment on above: Patient Position: Sitting; Cuff Location : Left Arm; Cuff Size: Standard 12-29-2015 13:28-0400 BP Systolic 100 mm[Hg] BRITNEY Hazel [facility] Work Phone: Comment on above: Patient Position: Sitting; Cuff Location : Left Arm; Cuff Size: Standard 12-29-2015 13:280400 BSA (Body Surface Area) 1.99 m2 BRITNEY Hazel [facility] Work Phone: 12-29-2015 13:28-0400 Height 175.26 cm BRITNEY Hazel [employer] [facility] Work Phone: 12-29-2015 13:28-0400 Pulse (Heart Rate) 64 /min BRITNEY Hazel [facility] Work Phone: Comment on above: Pattern: Regular 12-29-2015 13:28-0400 Pulse Oximetry 97 % Shruthi Song [facility] Work Phone: Comment on above: Room air 12-29-2015 13:28-0400 Respiratory Rate 20 /min BRITNEY Hazel [facility] Work Phone: Comment on above: Pattern: Unlabored 12-29-2015 13:28-0400 SaO2% (BldA) [Mass fraction] 97 % BRITNEY Hazel LPN [facility] Work Phone: Comment on above: Room air 12-29-2015 13:28-0400 Weight 83.01 kg Shruthi Song [facility] Work Phone: 10-06-2015 12:25-0400 BMI (Body Mass Index) 27.91 kg/m2 BRITNEY Hazel LPN [facility] Work Phone: 10-06-2015 12:25-0400 Body Temperature 97.6 [degF] BRITNEY Hazel LPN [facility] Work Phone: Comment on above: Method: Temporal 10-06-2015 12:25-0400 Body weight 85.73 kg BRITNEY Hazel LPN [facility] Work Phone: 10-06-2015 12:25-0400 BP Diastolic 60 mm[Hg] BRITNEY Hazel LPN [facility] Work Phone: Comment on above: Patient Position: Sitting; Cuff Location : Left Arm; Cuff Size: Standard 10-06-2015 12:25-0400 BP Systolic 90 mm[Hg] BRITNEY Hazel LPN [facility] Work Phone: Comment on above: Patient Position: Sitting; Cuff Location : Left Arm; Cuff Size: Standard 10-06-2015 12:25-0400 BSA (Body Surface Area) 2.02 m2 BRITNEY Hazel LPN [facility] Work Phone: 10-06-2015 12:25-0400 Height 175.26 cm BRITNEY Hazel LPN [facility] Work Phone: 10-06-2015 12:25-0400 Pulse (Heart Rate) 74 /min BRITNEY Hazel LPN [facility] Work Phone: Comment on above: Pattern: Regular 10-06-2015 12:25-0400 Pulse Oximetry 97 % Shruthi Song [facility] Work Phone: Comment on above: Room air 10-06-2015 12:25-0400 Respiratory Rate 18 /min BRITNEY Hazel LPN [facility] Work Phone: Comment on above: Pattern: Unlabored 10-06-2015 12:25-0400 SaO2% (BldA) [Mass fraction] 97 % BRITNEY Hazel LPN [facility] Work Phone: Comment on above: Room air 10-06-2015 12:25-0400 Weight 85.73 kg Shruthi Song [facility] Work Phone: 10-21-2014 10:05-0400 BMI (Body Mass Index) 27.61 kg/m2 Jocelyn Armstrong [facility] Work Phone: 10-21-2014 10:05-0400 Body Temperature 98.2 [degF] Jocelyn Armstrong [facility] Work Phone: Comment on above: Method: Oral 10-21-2014 10:050400 Body weight 84.82 kg Jocelyn Armstrong [facility] Work Phone: 10-21-2014 10:05-0400 BP Diastolic 78 mm[Hg] Jocelyn Armstrong [facility] Work Phone: Comment on above: Patient Position: Sitting; Cuff Location : Left Arm; Cuff Size: Standard 10-21-2014 10:05-0400 BP Systolic 122 mm[Hg] Jocelyn Armstrong [facility] Work Phone: Comment on above: Patient Position: Sitting; Cuff Location : Left Arm; Cuff Size: Standard 10-21-2014 10:05-0400 BSA (Body Surface Area) 2.01 m2 Jocelyn Armstrong [facility] Work Phone: 10-21-2014 10:05-0400 Height 175.26 cm Jocelyn Armstrong [facility] Work Phone: 10-21-2014 10:05-0400 Pulse (Heart Rate) 74 /min Jocelyn Armstrong [facility] Work Phone: Comment on above: Pattern: Regular 10-21-2014 10:05-0400 Pulse Oximetry 98 % Shruthi Song [facility] Work Phone: Comment on above: Room air 10-21-2014 10:05-0400 Respiratory Rate 18 /min Jocelyn Armstrong LPN [facility] Work Phone: 10-21-2014 10:05-0400 SaO2% (BldA) [Mass fraction] 98 % Jocelyn Armstrong LPN [facility] Work Phone: Comment on above: Room air 10-21-2014 10:05-0400 Weight 84.82 kg Shruthi Song [facility] Work Phone: 05-27-2014 08:10-0500 BMI (Body Mass Index) 27.61 kg/m2 Jocelyn Armstrong LPN [facility] Work Phone: 05-27-2014 08:10-0500 Body Temperature 98 [degF] Jocelyn Armstrong LPN [facility] Work Phone: Comment on above: Method: Oral 05-27-2014 08:10-0500 Body weight 84.82 kg Jocelyn Armstrong LPN [facility] Work Phone: 05-27-2014 08:10-0500 BP Diastolic 70 mm[Hg] Jocelyn Armstrong LPN [facility] Work Phone: Comment on above: Patient Position: Sitting; Cuff Location : Left Arm; Cuff Size: Standard 05-27-2014 08:10-0500 BP Systolic 118 mm[Hg] Jocelyn Armstrong LPN [facility] Work Phone: Comment on above: Patient Position: Sitting; Cuff Location : Left Arm; Cuff Size: Standard 05-27-2014 08:10-0500 BSA (Body Surface Area) 2.01 m2 Jocelyn Armstrong LPN [facility] Work Phone: 05-27-2014 08:10-0500 Height 175.26 cm Jocelyn Armstrong LPN [facility] Work Phone: 05-27-2014 08:10-0500 Pulse (Heart Rate) 62 /min Jocelyn Armstrong LPN [facility] Work Phone: Comment on above: Pattern: Regular 05-27-2014 08:10-0500 Pulse Oximetry 98 % Shruthi Song [facility] Work Phone: Comment on above: Room air 05-27-2014 08:10-0500 Respiratory Rate 16 /min Jocelyn Armstrong [facility] Work Phone: 05-27-2014 08:10-0500 SaO2% (BldA) [Mass fraction] 98 % Jocelyn Armstrong [employer] [facility] Work Phone: Comment on above: Room air 05-27-2014 08:10-0500 Weight 84.82 kg Shruthi Song [facility] Work Phone: 12-26-2013 08:48-0400 BMI (Body Mass Index) 27.61 kg/m2 BRITNEY Hazel [facility] Work Phone: 12-26-2013 08:48-0400 Body Temperature 98 [degF] BRITNEY Hazel [facility] Work Phone: Comment on above: Method: Oral 12-26-2013 08:48-0400 Body weight 84.82 kg BRITNEY Hazel [facility] Work Phone: 12-26-2013 08:48-0400 BP Diastolic 74 mm[Hg] BRITNEY Hazel [facility] Work Phone: Comment on above: Patient Position: Sitting; Cuff Location : Left Arm; Cuff Size: Standard 12-26-2013 08:48-0400 BP Systolic 116 mm[Hg] BRITNEY Hazel [facility] Work Phone: Comment on above: Patient Position: Sitting; Cuff Location : Left Arm; Cuff Size: Standard 12-26-2013 08:48-0400 BSA (Body Surface Area) 2.01 m2 BRITNEY Hazel [facility] Work Phone: 12-26-2013 08:48-0400 Height 175.26 cm BRITNEY Hazel [facility] Work Phone: 12-26-2013 08:48-0400 Pulse (Heart Rate) 64 /min BRITNEY Hazel LPN [facility] Work Phone: Comment on above: Pattern: Regular 12-26-2013 08:48-0400 Pulse Oximetry 98 % Shruthi Song [facility] Work Phone: Comment on above: Room air 12-26-2013 08:48-0400 Respiratory Rate 20 /min BRITNEY Hazel LPN [facility] Work Phone: Comment on above: Pattern: Unlabored 12-26-2013 08:48-0400 SaO2% (BldA) [Mass fraction] 98 % BRITNEY Hazel LPN [facility] Work Phone: Comment on above: Room air 12-26-2013 08:48-0400 Weight 84.82 kg Shruthi Song [facility] Work Phone: 11-14-2013 10:130400 BMI (Body Mass Index) 27.76 kg/m2 Jocelyn Armstrong LPN [facility] Work Phone: 11-14-2013 10:130400 Body Temperature 98 [degF] Jocelyn Armstrong LPN [facility] Work Phone: Comment on above: Method: Oral 11-14-2013 10:130400 Body weight 85.28 kg Jocelyn Armstrong LPN [facility] Work Phone: 11-14-2013 10:130400 BP Diastolic 78 mm[Hg] Jocelyn Armstrong LPN [facility] Work Phone: Comment on above: Patient Position: Sitting; Cuff Location : Left Arm; Cuff Size: Standard 11-14-2013 10:130400 BP Systolic 118 mm[Hg] Jocelyn Armstrong LPN [facility] Work Phone: Comment on above: Patient Position: Sitting; Cuff Location : Left Arm; Cuff Size: Standard 11-14-2013 10:130400 BSA (Body Surface Area) 2.01 m2 Jocelyn Armstrong LPN [facility] Work Phone: 11-14-2013 10:130400 Height 175.26 cm Jocelyn Armstrong LPN [facility] Work Phone: 11-14-2013 10:13-0400 Pulse (Heart Rate) 70 /min Jocelyn Armstrong LPN [facility] Work Phone: Comment on above: Pattern: Regular 11-14-2013 10:13-0400 Pulse Oximetry 97 % Shruthi Song [facility] Work Phone: Comment on above: Room air 11-14-2013 10:130400 Respiratory Rate 16 /min Jocelyn Armstrong LPN [facility] Work Phone: 11-14-2013 10:130400 SaO2% (BldA) [Mass fraction] 97 % Jocelyn Armstrong LPN [facility] Work Phone: Comment on above: Room air 11-14-2013 10:130400 Weight 85.28 kg Shruthi Song [facility] Work Phone: 07-08-2013 11:45-0500 Heart rate 399 ms Christina Zaman [facility] Work Phone: 01-21-2013 09:30-0400 BMI (Body Mass Index) 27.17 kg/m2 Jocelyn Armstrong LPN [facility] Work Phone: 01-21-2013 09:30-0400 Body Temperature 98.2 [degF] Jocelyn Armstrong LPN [facility] Work Phone: Comment on above: Method: Oral 01-21-2013 09:30-0400 Body weight 83.46 kg Jocelyn Armstrong LPN [facility] Work Phone: 01-21-2013 09:30-0400 BP Diastolic 70 mm[Hg] Jocelyn Armstrong LPN [facility] Work Phone: Comment on above: Patient Position: Sitting; Cuff Location : Left Arm; Cuff Size: Standard 01-21-2013 09:30-0400 BP Systolic 120 mm[Hg] Jocelyn Armstrong LPN [facility] Work Phone: Comment on above: Patient Position: Sitting; Cuff Location : Left Arm; Cuff Size: Standard 01-21-2013 09:30-0400 BSA (Body Surface Area) 1.99 m2 Jocelyn Armstrong LPN [facility] Work Phone: 01-21-2013 09:30-0400 Height 175.26 cm Jocelyn Armstrong LPN [facility] Work Phone: 01-21-2013 09:30-0400 Pulse (Heart Rate) 62 /min Jocelyn Armstrong LPN [facility] Work Phone: Comment on above: Pattern: Regular 01-21-2013 09:30-0400 Pulse Oximetry 92 % Shruthi Song [facility] Work Phone: Comment on above: Room air 01-21-2013 09:30-0400 Respiratory Rate 16 /min Jocelyn Armstrong LPN [facility] Work Phone: 01-21-2013 09:30-0400 SaO2% (BldA) [Mass fraction] 92 % Jocelyn Armstrong LPN [facility] Work Phone: Comment on above: Room air 01-21-2013 09:30-0400 Weight 83.46 kg Shruthi Song [facility] Work Phone: 10-26-2012 13:38-0400 Body Temperature 98.4 [degF] Mayra Vivas [facility] Work Phone: [facility] Work Phone: 10-26-2012 13:28-0400 BMI (Body Mass Index) 27.17 kg/m2 Jocelyn Armstrong LPN [facility] Work Phone: 10-26-2012 13:28-0400 Body weight 83.46 kg Jocelyn Armstrong LPN [facility] Work Phone: 10-26-2012 13:28-0400 BP Diastolic 76 mm[Hg] Jocelyn Armstrong LPN [facility] Work Phone: Comment on above: Patient Position: Sitting; Cuff Location : Left Arm; Cuff Size: Standard 10-26-2012 13:28-0400 BP Systolic 118 mm[Hg] Jocelyn Armstrong LPN [facility] Work Phone: Comment on above: Patient Position: Sitting; Cuff Location : Left Arm; Cuff Size: Standard 10-26-2012 13:28-0400 BSA (Body Surface Area) 1.99 m2 Jocelyn Armstrong LPN [facility] Work Phone: 10-26-2012 13:28-0400 Height 175.26 cm Jocelyn Armstrong LPN [facility] Work Phone: 10-26-2012 13:28-0400 Pulse (Heart Rate) 70 /min Jocelyn Armstrong LPN [facility] Work Phone: Comment on above: Pattern: Regular 10-26-2012 13:28-0400 Pulse Oximetry 96 % Shruthi Song [facility] Work Phone: Comment on above: Room air 10-26-2012 13:28-0400 Respiratory Rate 18 /min Jocelyn Armstrong LPN [facility] Work Phone: 10-26-2012 13:28-0400 SaO2% (BldA) [Mass fraction] 96 % Jocelyn Armstrong LPN [facility] Work Phone: Comment on above: Room air 10-26-2012 13:28-0400 Weight 83.46 kg Shruthi Song [facility] Work Phone: 06-29-2012 11:33-0500 BMI (Body Mass Index) 27.17 kg/m2 BRITNEY Hazel LPN [facility] Work Phone: 06-29-2012 11:33-0500 Body Temperature 97.9 [degF] BRITNEY Hazel LPN [facility] Work Phone: Comment on above: Method: Oral 06-29-2012 11:33-0500 Body weight 83.46 kg BRITNEY Hazel MJ [facility] Work Phone: 06-29-2012 11:33-0500 BP Diastolic 74 mm[Hg] BRITNEY Hazel [employer] [facility] Work Phone: Comment on above: Patient Position: Sitting; Cuff Location : Left Arm; Cuff Size: Standard 06-29-2012 11:33-0500 BP Systolic 114 mm[Hg] BRITNEY Hazel [employer] [facility] Work Phone: Comment on above: Patient Position: Sitting; Cuff Location : Left Arm; Cuff Size: Standard 06-29-2012 11:33-0500 BSA (Body Surface Area) 1.99 m2 BRITNEY Hazel MJ [facility] Work Phone: 06-29-2012 11:33-0500 Height 175.26 cm BRITNEY Hazel [employer] [facility] Work Phone: 06-29-2012 11:33-0500 Pulse (Heart Rate) 70 /min BRITNEY Hazel [employer] [facility] Work Phone: Comment on above: Pattern: Regular 06-29-2012 11:33-0500 Respiratory Rate 18 /min BRITNEY Hazel [employer] [facility] Work Phone: Comment on above: Pattern: Unlabored 06-29-2012 11:33-0500 Weight 83.46 kg Shruthi Song [facility] Work Phone: 06-22-2012 11:56-0500 BMI (Body Mass Index) 27.32 kg/m2 Jocelyn Armstrong [facility] Work Phone: 06-22-2012 11:56-0500 Body Temperature 98 [degF] Jocelyn Armstrong [facility] Work Phone: Comment on above: Method: Oral 06-22-2012 11:56-0500 Body weight 83.92 kg Jocelyn Armstrong [facility] Work Phone: 06-22-2012 11:56-0500 BP Diastolic 76 mm[Hg] Jocelyn Armstrong [facility] Work Phone: Comment on above: Patient Position: Sitting; Cuff Location : Left Arm; Cuff Size: Standard 06-22-2012 11:56-0500 BP Systolic 122 mm[Hg] Jocelyn Armstrong [employer] [facility] Work Phone: Comment on above: Patient Position: Sitting; Cuff Location : Left Arm; Cuff Size: Standard 06-22-2012 11:56-0500 BSA (Body Surface Area) 2 m2 Jocelyn Armstrong LPN [facility] Work Phone: 06-22-2012 11:56-0500 Height 175.26 cm Jocelyn Armstrong LPN [facility] Work Phone: 06-22-2012 11:56-0500 Pulse (Heart Rate) 80 /min Jocelyn Armstrong LPN [facility] Work Phone: Comment on above: Pattern: Regular 06-22-2012 11:56-0500 Pulse Oximetry 96 % Shruthi Song [facility] Work Phone: Comment on above: Room air 06-22-2012 11:56-0500 Respiratory Rate 18 /min Jocelyn Armstrong LPN [facility] Work Phone: 06-22-2012 11:56-0500 SaO2% (BldA) [Mass fraction] 96 % Jocelyn Armstrong LPN [facility] Work Phone: Comment on above: Room air 06-22-2012 11:56-0500 Weight 83.92 kg Shruthi Song [facility] Work Phone: 04-10-2012 08:58-0400 BMI (Body Mass Index) 27.32 kg/m2 Jocelyn Armstrong LPN [facility] Work Phone: 04-10-2012 08:58-0400 Body Temperature 97.4 [degF] Jocelyn Armstrong LPN [facility] Work Phone: Comment on above: Method: Oral 04-10-2012 08:58-0400 Body weight 83.92 kg Jocelyn Armstrong LPN [facility] Work Phone: 04-10-2012 08:58-0400 BP Diastolic 78 mm[Hg] Jocelyn Armstrong LPN [facility] Work Phone: Comment on above: Patient Position: Sitting; Cuff Location : Left Arm; Cuff Size: Standard 04-10-2012 08:58-0400 BP Systolic 122 mm[Hg] Jocelyn Armstrong LPN [facility] Work Phone: Comment on above: Patient Position: Sitting; Cuff Location : Left Arm; Cuff Size: Standard 04-10-2012 08:58-0400 BSA (Body Surface Area) 2 m2 Jocelyn Armstrong LPN [facility] Work Phone: 04-10-2012 08:58-0400 Height 175.26 cm Jocelyn Armstrong LPN [facility] Work Phone: 04-10-2012 08:58-0400 Pulse (Heart Rate) 68 /min Jocelyn Armstrong LPN [facility] Work Phone: Comment on above: Pattern: Regular 04-10-2012 08:58-0400 Pulse Oximetry 97 % Shruthi Song [facility] Work Phone: Comment on above: Room air 04-10-2012 08:58-0400 Respiratory Rate 18 /min Jocelyn Armstrong LPN [facility] Work Phone: Comment on above: Pattern: Unlabored 04-10-2012 08:58-0400 SaO2% (BldA) [Mass fraction] 97 % Jocelyn Armstrong LPN [facility] Work Phone: Comment on above: Room air 04-10-2012 08:58-0400 Weight 83.92 kg Shruthi Song [facility] Work Phone: 02-23-2012 13:26-0400 BMI (Body Mass Index) 27.32 kg/m2 BRITNEY Hazel MJ [facility] Work Phone: 02-23-2012 13:26-0400 Body Temperature 97.6 [degF] BRITNEY Hazel LPN [facility] Work Phone: Comment on above: Method: Oral 02-23-2012 13:26-0400 Body weight 83.92 kg BRITNEY Ilir BARKER [facility] Work Phone: 02-23-2012 13:26-0400 BP Diastolic 74 mm[Hg] BRITNEY Hazel LPN [facility] Work Phone: Comment on above: Patient Position: Sitting; Cuff Location : Left Arm; Cuff Size: Standard 02-23-2012 13:26-0400 BP Systolic 112 mm[Hg] BRITNEY Hazel LPN [facility] Work Phone: Comment on above: Patient Position: Sitting; Cuff Location : Left Arm; Cuff Size: Standard 02-23-2012 13:26-0400 BSA (Body Surface Area) 2 m2 BRITNEY Hazel MJ [facility] Work Phone: 02-23-2012 13:26-0400 Height 175.26 cm BRITNEY Hazel [employer] [facility] Work Phone: 02-23-2012 13:26-0400 Pulse (Heart Rate) 70 /min BRITNEY Hazel LPN [facility] Work Phone: Comment on above: Pattern: Regular 02-23-2012 13:26-0400 Respiratory Rate 20 /min BRITNEY Hazel LPN [facility] Work Phone: Comment on above: Pattern: Unlabored 02-23-2012 13:26-0400 Weight 83.92 kg Shruthi Song [facility] Work Phone: 02-14-2012 16:39-0400 BMI (Body Mass Index) 27.32 kg/m2 [place] Wood RN [facility] Work Phone: 02-14-2012 16:39-0400 Body Temperature 97.8 [degF] Florida Wood RN [facility] Work Phone: Comment on above: Method: Oral 02-14-2012 16:39-0400 Body weight 83.92 kg Florida Wood RN [facility] Work Phone: 02-14-2012 16:39-0400 BP Diastolic 80 mm[Hg] Florida Wood RN [facility] Work Phone: Comment on above: Patient Position: Sitting; Cuff Location : Left Arm; Cuff Size: Standard 02-14-2012 16:39-0400 BP Systolic 114 mm[Hg] Florida Wood RN [facility] Work Phone: Comment on above: Patient Position: Sitting; Cuff Location : Left Arm; Cuff Size: Standard 02-14-2012 16:39-0400 BSA (Body Surface Area) 2 m2 Florida Wood RN [facility] Work Phone: 02-14-2012 16:39-0400 Height 175.26 cm Florida Wood RN [facility] Work Phone: 02-14-2012 16:39-0400 Pulse (Heart Rate) 72 /min Florida Wood RN [facility] Work Phone: Comment on above: Pattern: Regular 02-14-2012 16:39-0400 Respiratory Rate 18 /min Florida Wood RN [facility] Work Phone: Comment on above: Pattern: Unlabored 02-14-2012 16:39-0400 Weight 83.92 kg Shruthi Song [facility] Work Phone: 02-06-2012 16:46-0400 BMI (Body Mass Index) 27.32 kg/m2 Jocelyn Nathaniel BARKER [facility] Work Phone: 02-06-2012 16:46-0400 Body Temperature 98.6 [degF] Jocelyn Nathaniel MJ [facility] Work Phone: Comment on above: Method: Oral 02-06-2012 16:46-0400 Body weight 83.92 kg Jocelyn Nathaniel MJ [facility] Work Phone: 02-06-2012 16:46-0400 BP Diastolic 68 mm[Hg] Jocelyn Armstrong MJ [facility] Work Phone: Comment on above: Patient Position: Sitting; Cuff Location : Left Arm; Cuff Size: Standard 02-06-2012 16:46-0400 BP Systolic 110 mm[Hg] Jocelyn Armstrong MJ [facility] Work Phone: Comment on above: Patient Position: Sitting; Cuff Location : Left Arm; Cuff Size: Standard 02-06-2012 16:46-0400 BSA (Body Surface Area) 2 m2 Jocelyn Nathaniel BARKER [facility] Work Phone: 02-06-2012 16:46-0400 Height 175.26 cm Jocelyn Armstrong LPN [facility] Work Phone: 02-06-2012 16:46-0400 Pulse (Heart Rate) 74 /min Jocelyn Armstrong LPN [facility] Work Phone: Comment on above: Pattern: Regular 02-06-2012 16:46-0400 Respiratory Rate 17 /min Jocelyn Armstrong LPN [facility] Work Phone: 02-06-2012 16:46-0400 Weight 83.92 kg Shruthi Song [facility] Work Phone: 11-10-2011 13:46-0400 BMI (Body Mass Index) 27.32 kg/m2 BRITNEY Hazel [facility] Work Phone: 11-10-2011 13:46-0400 Body Temperature 97.9 [degF] BRITNEY Hazel [facility] Work Phone: Comment on above: Method: Oral 11-10-2011 13:46-0400 Body weight 83.92 kg BRITNEY Hazel [facility] Work Phone: 11-10-2011 13:46-0400 BP Diastolic 68 mm[Hg] BRITNEY Hazel [facility] Work Phone: Comment on above: Patient Position: Sitting; Cuff Location : Left Arm; Cuff Size: Standard 11-10-2011 13:46-0400 BP Systolic 118 mm[Hg] BRITNEY Hazel [facility] Work Phone: Comment on above: Patient Position: Sitting; Cuff Location : Left Arm; Cuff Size: Standard 11-10-2011 13:46-0400 BSA (Body Surface Area) 2 m2 BRITNEY Hazel [facility] Work Phone: 11-10-2011 13:46-0400 Height 175.26 cm BRITNEY Hazel [facility] Work Phone: 11-10-2011 13:46-0400 Pulse (Heart Rate) 70 /min BRITNEY Hazel [employer] [facility] Work Phone: Comment on above: Pattern: Regular 11-10-2011 13:46-0400 Respiratory Rate 20 /min BRITNEY Hazel MJ [facility] Work Phone: Comment on above: Pattern: Unlabored 11-10-2011 13:46-0400 Weight 83.92 kg Shruthi Song [facility] Work Phone: 11-04-2011 11:27-0400 BMI (Body Mass Index) 26.58 kg/m2 Florida Wood RN [facility] Work Phone: 11-04-2011 11:27-0400 Body Temperature 98.1 [degF] Florida Wood RN [facility] Work Phone: Comment on above: Method: Oral 11-04-2011 11:27-0400 Body weight 81.65 kg Florida Wood RN [facility] Work Phone: 11-04-2011 11:27-0400 BP Diastolic 60 mm[Hg] Florida Wood RN [facility] Work Phone: Comment on above: Patient Position: Sitting; Cuff Location : Left Arm; Cuff Size: Standard 11-04-2011 11:27-0400 BP Systolic 122 mm[Hg] Florida Wood RN [facility] Work Phone: Comment on above: Patient Position: Sitting; Cuff Location : Left Arm; Cuff Size: Standard 11-04-2011 11:27-0400 BSA (Body Surface Area) 1.98 m2 Florida Wood RN [facility] Work Phone: 11-04-2011 11:27-0400 Height 175.26 cm Florida Wood RN [facility] Work Phone: 11-04-2011 11:27-0400 Pulse (Heart Rate) 74 /min Florida Wood RN [facility] Work Phone: Comment on above: Pattern: Regular 11-04-2011 11:27-0400 Pulse Oximetry 96 % Shruthi Song [facility] Work Phone: Comment on above: Room air 11-04-2011 11:27-0400 Respiratory Rate 16 /min Florida Wood RN [facility] Work Phone: Comment on above: Pattern: Unlabored 11-04-2011 11:27-0400 SaO2% (BldA) [Mass fraction] 96 % Florida Wood RN [facility] Work Phone: Comment on above: Room air 11-04-2011 11:27-0400 Weight 81.65 kg Shruthi Song [facility] Work Phone: 07-04-2011 16:23-0500 Height 175.26 cm Demetri Valverde MD [facility] Work Phone: 06-20-2011 10:49-0500 BMI (Body Mass Index) 26.58 kg/m2 BRITNEY Hazel LPN [facility] Work Phone: 06-20-2011 10:49-0500 Body Temperature 98.2 [degF] BRITNEY Hazel LPN [facility] Work Phone: Comment on above: Method: Oral 06-20-2011 10:49-0500 Body weight 81.65 kg BRITNEY Hazel LPN [facility] Work Phone: 06-20-2011 10:49-0500 BP Diastolic 74 mm[Hg] BRITNEY Hazel LPN [facility] Work Phone: Comment on above: Patient Position: Sitting; Cuff Location : Left Arm; Cuff Size: Standard 06-20-2011 10:49-0500 BP Systolic 120 mm[Hg] BRITNEY Hazel LPN [facility] Work Phone: Comment on above: Patient Position: Sitting; Cuff Location : Left Arm; Cuff Size: Standard 06-20-2011 10:49-0500 BSA (Body Surface Area) 1.98 m2 BRITNEY Hazel LPN [facility] Work Phone: 06-20-2011 10:49-0500 Height 175.26 cm BRITNEY Hazel LPN [facility] Work Phone: 06-20-2011 10:49-0500 Pulse (Heart Rate) 64 /min BRITNEY Hazel LPN [facility] Work Phone: Comment on above: Pattern: Regular 06-20-2011 10:49-0500 Respiratory Rate 18 /min BRITNEY Hazel [employer] [facility] Work Phone: Comment on above: Pattern: Unlabored 06-20-2011 10:49-0500 Weight 81.65 kg Shruthi Song [facility] Work Phone: 06-01-2011 09:31-0500 BMI (Body Mass Index) 26.58 kg/m2 Milagros [facility] Work Phone: 06-01-2011 09:31-0500 Body weight 81.65 kg [facility] Work Phone: 06-01-2011 09:31-0500 BP Diastolic 78 mm[Hg] [facility] Work Phone: Comment on above: Patient Position: Supine; Cuff Location: Left Arm; Cuff Size: Standard 06-01-2011 09:31-0500 BP Systolic 120 mm[Hg] [facility] Work Phone: Comment on above: Patient Position: Supine; Cuff Location: Left Arm; Cuff Size: Standard 06-01-2011 09:31-0500 BSA (Body Surface Area) 1.98 m2 [facility] Work Phone: 06-01-2011 09:31-0500 Height 175.26 cm [facility] Work Phone: 06-01-2011 09:31-0500 Pulse (Heart Rate) 60 /min [facility] Work Phone: Comment on above: Pattern: Regular 06-01-2011 09:31-0500 Respiratory Rate 16 /min [facility] Work Phone: Comment on above: Pattern: Unlabored 06-01-2011 09:31-0500 Weight 81.65 kg Shruthi Song [facility] Work Phone: 12-06-2010 14:16-0400 BMI (Body Mass Index) 25.47 kg/m2 BRITNEY Hazel LPN [facility] Work Phone: 12-06-2010 14:16-0400 Body Temperature 98.2 [degF] BRITNEY Hazel LPN [facility] Work Phone: Comment on above: Method: Oral 12-06-2010 14:16-0400 Body weight 79.38 kg BRITNEY Hazel LPN [facility] Work Phone: 12-06-2010 14:16-0400 BP Diastolic 74 mm[Hg] BRITNEY Hazel LPN [facility] Work Phone: Comment on above: Patient Position: Sitting; Cuff Location : Left Arm; Cuff Size: Standard 12-06-2010 14:16-0400 BP Systolic 108 mm[Hg] BRITNEY Hazel LPN [facility] Work Phone: Comment on above: Patient Position: Sitting; Cuff Location : Left Arm; Cuff Size: Standard 12-06-2010 14:16-0400 BSA (Body Surface Area) 1.96 m2 BRITNEY Hazel LPN [facility] Work Phone: 12-06-2010 14:16-0400 Height 176.53 cm BRITNEY Hazel LPN [facility] Work Phone: 12-06-2010 14:16-0400 Pulse (Heart Rate) 68 /min BRITNEY Hazel LPN [facility] Work Phone: Comment on above: Pattern: Regular 12-06-2010 14:16-0400 Respiratory Rate 18 /min BRITNEY Hazel LPN [facility] Work Phone: Comment on above: Pattern: Unlabored 12-06-2010 14:16-0400 Weight 79.38 kg Shruthi Song [facility] Work Phone: 04-15-2010 12:49-0400 Body Temperature 98.2 [degF] BRITNEY Hazel LPN [facility] Work Phone: Comment on above: Method: Oral 04-15-2010 12:49-0400 Body weight 79.83 kg BRITNEY Hazel LPN [facility] Work Phone: 04-15-2010 12:49-0400 BP Diastolic 74 mm[Hg] BRITNEY Hazel LPN [facility] Work Phone: Comment on above: Patient Position: Sitting; Cuff Location : Left Arm; Cuff Size: Standard 04-15-2010 12:49-0400 BP Systolic 118 mm[Hg] BRITNEY Hazel LPN [facility] Work Phone: Comment on above: Patient Position: Sitting; Cuff Location : Left Arm; Cuff Size: Standard 04-15-2010 12:49-0400 Pulse (Heart Rate) 74 /min BRITNEY Hazel LPN [facility] Work Phone: Comment on above: Pattern: Regular 04-15-2010 12:49-0400 Respiratory Rate 18 /min BRITNEY Hazel LPN [facility] Work Phone: Comment on above: Pattern: Unlabored 04-15-2010 12:49-0400 Weight 79.83 kg Shruthi Song [facility] Work Phone: 04-01-2010 12:55-0400 Body Temperature 98.7 [degF] Shruthi Song [facility] Work Phone: Comment on above: Method: Oral 04-01-2010 12:55-0400 Body weight 79.92 kg Shruthi Song [facility] Work Phone: 04-01-2010 12:55-0400 BP Diastolic 74 mm[Hg] Shruthi Song [facility] Work Phone: Comment on above: Patient Position: Sitting; Cuff Location : Left Arm; Cuff Size: Standard 04-01-2010 12:55-0400 BP Systolic 124 mm[Hg] Shruthi Song [facility] Work Phone: Comment on above: Patient Position: Sitting; Cuff Location : Left Arm; Cuff Size: Standard 04-01-2010 12:55-0400 Pulse (Heart Rate) 80 /min Shruthi Song [facility] Work Phone: Comment on above: Pattern: Regular 04-01-2010 12:55-0400 Respiratory Rate 18 /min Shruthi Song [facility] Work Phone: Comment on above: Pattern: Unlabored 04-01-2010 12:55-0400 Weight 79.92 kg Shruthi Song [facility] Work Phone: 02-12-2010 07:58-0400 BP Diastolic 70 mm[Hg] Shona Neel [facility] Work Phone: Comment on above: Patient Position: Sitting; Cuff Location : Left Arm; Cuff Size: Standard 02-12-2010 07:58-0400 BP Systolic 116 mm[Hg] Shona Shaikh [facility] Work Phone: Comment on above: Patient Position: Sitting; Cuff Location : Left Arm; Cuff Size: Standard 02-12-2010 07:58-0400 Pulse (Heart Rate) 68 /min Shona Shaikh [facility] Work Phone: Comment on above: Pattern: Regular 02-12-2010 07:58-0400 Respiratory Rate 18 /min Shona Shaikh [facility] Work Phone: Comment on above: Pattern: Unlabored 12-07-2009 15:35-0400 Body weight 80.74 kg BRITNEY Iilr [facility] Work Phone: 12-07-2009 15:35-0400 BP Diastolic 80 mm[Hg] BRITNEY Hazel [facility] Work Phone: Comment on above: Patient Position: Sitting; Cuff Location : Left Arm; Cuff Size: Standard 12-07-2009 15:35-0400 BP Systolic 118 mm[Hg] BRITNEYDALY Hazel [facility] Internal Medicine Work Phone: Comment on above: Patient Position: Sitting; Cuff Location : Left Arm; Cuff Size: Standard 12-07-2009 15:35-0400 Pulse (Heart Rate) 70 /min BRITNEY Hazel [facility] Internal Medicine Work Phone: Comment on above: Pattern: Regular 12-07-2009 15:35-0400 Respiratory Rate 18 /min BRITNEY Hazel [facility] Internal Medicine Work Phone: Comment on above: Pattern: Unlabored 12-07-2009 15:35-0400 Weight 80.74 kg Shruthi Song [facility] Internal Medicine Work Phone: 03-23-2009 13:07-0400 Body weight 81.65 kg BRITNEY Hazel LPN [facility] Internal Medicine Work Phone: 03-23-2009 13:07-0400 BP Diastolic 78 mm[Hg] BRITNEY Hazel LPN [facility] Work Phone: Comment on above: Patient Position: Sitting; Cuff Location : Left Arm; Cuff Size: Standard 03-23-2009 13:07-0400 BP Systolic 118 mm[Hg] BRITNEY Hazel LPN [facility] Work Phone: Comment on above: Patient Position: Sitting; Cuff Location : Left Arm; Cuff Size: Standard 03-23-2009 13:07-0400 Head Circumference 0 cm Shruthi Song [facility] Internal Medicine Work Phone: 03-23-2009 13:07-0400 Head Occipital-frontal circumference 0 cm BRITNEY Hazel LPN [facility] Work Phone: 03-23-2009 13:07-0400 Height 0 cm BRITNEY Hazel LPN [facility] Work Phone: 03-23-2009 13:07-0400 Pulse (Heart Rate) 68 /min BRITNEY Hazel LPN [facility] Work Phone: Comment on above: Pattern: Regular 03-23-2009 13:07-0400 Respiratory Rate 16 /min BRITNEY Hazel LPN [facility] Work Phone: Comment on above: Pattern: Unlabored 03-23-2009 13:07-0400 Weight 81.65 kg Shruthi Song [facility] Internal Medicine Work Phone: 02-10-2009 13:41-0400 Body weight 82.56 kg BRITNEY Hazel LPN [facility] Medicine Work Phone: 02-10-2009 13:41-0400 BP Diastolic 78 mm[Hg] BRITNEY Hazel LPN [facility] Work Phone: Comment on above: Patient Position: Sitting; Cuff Location : Left Arm; Cuff Size: Standard 02-10-2009 13:41-0400 BP Systolic 118 mm[Hg] BRITNEY Hazel LPN [facility] Internal Medicine Work Phone: Comment on above: Patient Position: Sitting; Cuff Location : Left Arm; Cuff Size: Standard 02-10-2009 13:41-0400 Head Circumference 0 cm Shruthi Song [facility] Internal Medicine Work Phone: 02-10-2009 13:41-0400 Head Occipital-frontal circumference 0 cm BRITNEY Hazel [employer] [facility] Internal Medicine Work Phone: 02-10-2009 13:41-0400 Height 0 cm BRITNEY Hazel [employer] [facility] Work Phone: 02-10-2009 13:41-0400 Pulse (Heart Rate) 74 /min BRITNEY Hazel LPN [facility] Internal Medicine Work Phone: Comment on above: Pattern: Regular 02-10-2009 13:41-0400 Respiratory Rate 16 /min BRITNEY Hazel [facility] Internal Medicine Work Phone: Comment on above: Pattern: Unlabored 02-10-2009 13:41-0400 Weight 82.56 kg Shruthi Song [facility] Internal Medicine Work Phone: 11-19-2007 11:56-0400 Body Temperature 98.6 [degF] [facility] Work Phone: Comment on above: Method: Undefined 11-19-2007 11:56-0400 Body weight 0 kg Shona [facility] Internal Medicine Work Phone: 11-19-2007 11:56-0400 BP Diastolic 62 mm[Hg] Shona [facility] Internal Medicine Work Phone: Comment on above: Patient Position: Sitting; Cuff Location : Right Arm; Cuff Size: Standard 11-19-2007 11:56-0400 BP Systolic 100 mm[Hg] Shona [facility] Internal Medicine Work Phone: Comment on above: Patient Position: Sitting; Cuff Location : Right Arm; Cuff Size: Standard 11-19-2007 11:56-0400 Head Circumference 0 cm Shruthi Song [facility] Medicine Work Phone: 11-19-2007 11:56-0400 Head Occipital-frontal circumference 0 cm Shona Shaikh [facility] Medicine Work Phone: 11-19-2007 11:56-0400 Height 0 cm Shona Shaikh [facility] Medicine Work Phone: 11-19-2007 11:56-0400 Pulse (Heart Rate) 88 /min [facility] Work Phone: Comment on above: Pattern: Regular 11-19-2007 11:56-0400 Respiratory Rate 16 /min Shona Shaikh [facility] Internal Medicine Work Phone: Comment on above: Pattern: Undefined 11-19-2007 11:56-0400 Weight 0 kg Shruthi Song [facility] Internal Medicine Work Phone: 11-02-2006 15:37-0400 Body Temperature 97.6 [degF] BRITNEY Hazel [facility] Internal Medicine Work Phone: Comment on above: Method: Oral 11-02-2006 15:37-0400 Body weight 82.1 kg BRITNEY Hazel [employer] [facility] Internal Medicine Work Phone: 11-02-2006 15:37-0400 BP Diastolic 80 mm[Hg] BRITNEY Hazel [facility] Internal Medicine Work Phone: Comment on above: Patient Position: Sitting; Cuff Location : Left Arm; Cuff Size: Standard 11-02-2006 15:37-0400 BP Systolic 114 mm[Hg] BRITNEY Hazel [facility] Internal Medicine Work Phone: Comment on above: Patient Position: Sitting; Cuff Location : Left Arm; Cuff Size: Standard 11-02-2006 15:37-0400 Head Circumference 0 cm Shruthi Song [facility] Medicine Work Phone: 11-02-2006 15:37-0400 Head Occipital-frontal circumference 0 cm BRITNEY Hazel [employer] [facility] Internal Medicine Work Phone: 11-02-2006 15:37-0400 Height 0 cm BRITNEY Hazel [employer] [facility] Medicine Work Phone: 11-02-2006 15:37-0400 Pulse (Heart Rate) 70 /min BRITNEY Hazel MJ [facility] Work Phone: Comment on above: Pattern: Regular 11-02-2006 15:37-0400 Respiratory Rate 20 /min BRITNEY Hazel MJ [facility] Work Phone: Comment on above: Pattern: Unlabored 11-02-2006 15:37-0400 Weight 82.1 kg Shruthi Song [facility] Work Phone: Encounters Encounter Date Encounter Type Care Provider Facility Start: 04-08-2025 ambulatory Michael Toth Facility :[facility] Start: 03-03-2025 ambulatory Dong Waters ty:[facility] Start: 02-24-2025 End: 02-24-[address] Michael Toth MD -[facility] Work Phone: Start: 02-24-2025 End: 02-24-[address] Tee Ricardo MD Work Phone: -[facility] Start: 02-04-2025 End: 02-04-[address] Tee Ricardo MD Work Phone: -Laboratory Phy Office 3rd Flr Start: 02-04-2025 End: 02-04-[address] Tee Ricardo MD -Laboratory Phy Office 3rd Flr Start: 02-04-2025 End: 02-04-2025 ambulatory Tee Ricardo Facility:[facility] Start: 01-17-2025 End: 01-17-[address] Tee Ricardo MD Work Phone: -Laboratory Start: 01-17-2025 End: 01-17-[address] Tee Ricardo MD -Laboratory Work Phone: Start: 01-16-2025 End: 01-17-[address] Tee Ricardo MD Work Phone: -Laboratory Start: 01-16-2025 End: 01-16-[address] Tee Ricardo MD -Laboratory Work Phone: Start: 01-16-2025 End: 01-16-2025 ambulatory Tee Kane Millerok Facility:[facility] Start: 12-30-2024 End: 12-30-[address] Tee Ricardo MD Work Phone: [facility] Work Phone: Start: 12-30-2024 End: 12-30-[address] Tee Ricardo MD -Cat Scan [facility] Work Phone: Start: 12-30-2024 End: 12-30-2024 ambulatory Tee Kane Millerok Facility:[facility] Start: 12-09-2024 End: 12-09-[address] Tee Ricardo MD -Radiology [facility] Work Phone: Start: 12-09-2024 End: 12-09-2024 ambulatory [facility] Kane Davion Facility:[facility] Start: 11-29-2024 End: 11-29-[address] Tee Ricardo MD Work Phone: [facility] Work Phone: Start: 11-29-2024 End: 11-29-[address] Tee Ricardo MD -Laboratory, Specimen Work Phone: Start: 11-29-2024 End: 11-29-[address] Tee Ricardo MD Work Phone: [facility] Work Phone: Start: 11-29-2024 End: 11-29-[address] Tee Ricardo MD -Radiology, [facility] Work Phone: Start: 11-29-2024 End: 11-29-2024 ambulatory Tee Kane Davion Facility:[facility] Start: 10-14-2024 End: 10-14-[address] Tee Ricardo MD -Laboratory, Phy Office 3rd Flr Start: 10-14-2024 End: 10-14-[address] Tee Ricardo MD Work Phone: [facility] Work Phone: Start: 07-26-2024 End: 07-26-[address] Tee Ricardo MD -Ultrasound, [facility] Work Phone: Start: 07-26-2024 End: 07-26-2024 ambulatory Tee Ricardo Facility:[facility] Start: 07-22-2024 End: 07-22-[address] Tee Ricardo MD -Laboratory, [place] Work Phone: Start: 07-22-2024 End: 07-22-2024 ambulatory [facility] Davion Facility:[facility] Start: 07-15-2024 End: 07-15-[address] Tee Ricardo MD -Laboratory Work Phone: Start: 07-15-2024 End: 07-15-2024 ambulatory [facility] Dav[place] Facility:[facility] Start: 09-26-2023 End: 09-26-[address] Shruthi Song Work Phone: [facility] Work Phone: Start: 09-26-2023 End: 09-26-[address] Shruthi Song Work Phone: [facility]-Pulmonary Services/Neurology Work Phone: Start: 07-13-2023 End: 07-13-[address] Tee Ricardo Work Phone: [facility] Work Phone: Start: 07-13-2023 End: 07-13-[address] Tee Ricardo Work Phone: [facility]-Laboratory Work Phone: Start: 06-06-2023 End: 06-06-[address] Tee Ricardo Work Phone: [facility] Work Phone: Start: 06-06-2023 End: 06-06-[address] Tee Ricardo Work Phone: [facility]-Laboratory, Phy Office 3rd Flr Start: 06-02-2023 End: 06-02-[address] Tee Ricardo Work Phone: [facility] Work Phone: Start: 06-02-2023 End: 06-02-[address] Tee Ricardo Work Phone: [facility] Work Phone: Start: 04-06-2023 Non-patient / Non-visit Dr. Justus Ricardo Work Phone: [facility] Start: 04-06-2023 End: 04-06-[address] Tee Ricardo Work Phone: [facility]-Pulmonary Services/Neurology Work Phone: Start: 02-23-2023 End: 02-23-[address] Shruthi Song Work Phone: [facility] Work Phone: Start: 02-23-2023 End: 02-23-[address] [facility] Start: 01-17-2023 End: 01-17-[address] Shruthi Song Work Phone: [facility] Work Phone: Start: 01-17-2023 End: 01-17-[address] Shruthi Song Work Phone: [facility] [place] Work Phone: Start: 01-10-2023 End: 01-10-[address] Shruthi Song Work Phone: [facility] Work Phone: Start: 01-10-2023 End: 01-10-[address] [facility]uth[facility] Start: 01-02-2023 End: 01-02-[address] Shruthi Song Work Phone: [facility] Work Phone: Start: 01-02-2023 End: 01-02-[address] Shruthi Song Work Phone: [facility] Start: 08-26-2022 ambulatory Shruthi Maribell DO [facility] Start: 08-26-2022 End: 08-26-2022 Office outpatient visit 10 minutes Shruthi Maribell DO Work Phone: [facility] Start: 08-17-2022 End: 08-17-2022 Office outpatient visit 10 minutes Shruthi Maribell DO Work Phone: [facility] Start: 07-08-2022 End: 07-08-2022 ambulatory [facility] Work Phone: Start: 07-08-2022 End: 07-08-2022 Patient encounter procedure [facility] Start: 05-23-2022 End: 05-23-2022 Office outpatient visit 15 minutes Shruthi Maribell DO Work Phone: [facility] Start: 02-23-2022 End: 02-23-2022 Office outpatient visit 25 minutes Shruthi Maribell DO Work Phone: [facility] Start: 01-13-2022 End: 01-13-2022 Phone Encounter Shruthi Maribell DO Work Phone: [facility] Start: 01-13-2022 End: 01-13-2022 Shruthi Maribell DO Work Phone: [facility] Start: 12-14-2020 End: 12-14-2020 Office outpatient visit 10 minutes Shruthi Maribell DO Work Phone: [facility] Start: 10-26-2020 End: 10-26-2020 Patient encounter procedure [facility] Start: 10-05-2020 End: 10-05-2020 Patient encounter procedure [facility] Start: 07-09-2020 End: 07-10-2020 Office outpatient visit 15 minutes Shruthi Maribell [facility] Start: 07-09-2020 Review Shruthi Maribell [facility] Start: 05-11-2020 End: 05-11-2020 Office outpatient visit 15 minutes Shruthi Maribell [facility] Start: 07-15-2019 End: 07-15-2019 Phone Encounter [facility]ibell [facility] Start: 07-15-2019 End: 07-15-2019 Shruthi Song DO Work Phone: [facility] Start: 06-19-2019 End: 06-19-2019 Lab Order Shruthi Maribell [facility] Start: 06-19-2019 End: 06-19-2019 Shruthivinny Song DO Work Phone: [facility] Start: 06-12-2019 End: 06-12-2019 Patient encounter procedure Shruthi Song DO Work Phone: [facility] Work Phone: Start: 06-12-2019 End: 06-12-2019 Periodic preventive med est patient 65yrs& older Shruthi Song [facility] Start: 06-20-2018 End: 06-20-2018 Office outpatient visit 25 minutes Shruthi Song [facility] Start: 04-04-2018 End: 04-04-2018 Periodic preventive med est patient 40-64yrs Shruthi Song [facility] Start: 04-04-2018 End: 04-04-2018 Physical examination Kaila Cotto CMA [facility] Work Phone: Start: 03-29-2018 End: 03-29-2018 Office outpatient visit 15 minutes Shruthi Song [facility] Start: 02-28-2018 End: 02-28-2018 Phone Encounter Shruthi Maribell [facility] Start: 02-28-2018 End: 02-28-2018 Shruthi Maribell DO Work Phone: [facility] Start: 02-23-2018 End: 02-28-2018 Office outpatient visit 15 minutes Shruthi Song [facility] Start: 02-09-2018 End: 02-09-2018 Phone Encounter Shruthi Maribell [facility] Start: 02-09-2018 End: 02-09-2018 Shruthi Song DO Work Phone: [facility] Start: 02-09-2018 End: 02-09-2018 Office outpatient visit 15 minutes Shruthi Song [facility] Start: 11-27-2017 End: 11-27-2017 Phone Encounter Shruthi Maribell [facility] Start: 11-27-2017 End: 11-27-2017 Shruthimonet Song DO Work Phone: [facility] Start: 11-16-2017 End: 11-16-2017 Office outpatient visit 25 minutes Shruthi Song [facility] Start: 10-19-2017 End: 10-19-2017 Office outpatient visit 25 minutes Shruthi Song [facility] Start: 10-25-2016 End: 10-25-2016 Office outpatient visit 15 minutes Shruthi Song [facility] Start: 07-15-2016 End: 07-15-2016 Office outpatient visit 15 minutes Shruthi Song [facility] Start: 02-29-2016 End: 02-29-2016 Office outpatient visit 10 minutes Shruthi Song [facility] Start: 02-08-2016 End: 02-08-2016 Office outpatient visit 15 minutes Shruthi Song [facility] Start: 12-29-2015 End: 12-29-2015 Office outpatient visit 25 minutes Shruthi Song [facility] Start: 10-06-2015 End: 10-06-2015 Office outpatient visit 25 minutes Shruthi Song [facility] Start: 10-02-2015 End: 10-02-2015 Phone Encounter Shruthi Maribell [facility] Start: 10-02-2015 End: 10-02-2015 Shruthivinny Song DO Work Phone: [facility] Start: 10-21-2014 End: 10-21-2014 Office outpatient visit 15 minutes Shruthi Song [facility] Start: 07-23-2014 End: 07-23-2014 Phone Encounter Shruthi Song [facility] Start: 07-23-2014 End: 07-23-2014 Shruthi Song DO Work Phone: [facility] Start: 05-27-2014 End: 05-27-2014 Office outpatient visit 25 minutes Shruthi Song [facility] Start: 03-27-2014 End: 03-27-2014 Phone Encounter Shruthi Song [facility] Start: 03-27-2014 End: 03-27-2014 Shruthi Song DO Work Phone: [facility] Start: 12-26-2013 End: 12-26-2013 Patient encounter Shruthi Song [facility] Start: 12-26-2013 End: 12-26-2013 Patient encounter status Shruthi Song DO Work Phone: [facility] Start: 12-26-2013 End: 12-26-2013 Shruthi Song DO Work Phone: [facility] Start: 11-14-2013 End: 11-14-2013 Patient encounter Shruthi Song [facility] Start: 11-14-2013 End: 11-14-2013 Shruthi Song DO Work Phone: [facility] Start: 07-18-2013 End: 07-21-2013 Patient encounter Shruthi Song [facility] Start: 07-18-2013 End: 07-21-2013 Shruthi Song DO Work Phone: [facility] Start: 01-21-2013 End: 01-21-2013 Patient encounter Shruthi Song [facility] Start: 01-21-2013 End: 01-21-2013 Shruthi Song DO Work Phone: [facility] Start: 10-26-2012 End: 10-26-2012 Office outpatient visit 15 minutes Shruthi Song [facility] Start: 06-29-2012 End: 06-29-2012 Patient encounter Shruthi Song [facility] Start: 06-29-2012 End: 06-29-2012 Patient encounter status Shruthi Song DO Work Phone: [facility] Start: 06-29-2012 End: 06-29-2012 Shruthi Song DO Work Phone: [facility] Start: 06-22-2012 End: 06-22-2012 Office outpatient visit 25 minutes Shruthi Song [facility] Start: 04-10-2012 End: 04-10-2012 Office outpatient visit 15 minutes Shruthi Song [facility] Start: 02-23-2012 End: 02-24-2012 Patient encounter Shruthi Song [facility] Start: 02-23-2012 End: 02-24-2012 Shruthi Song DO Work Phone: [facility] Start: 02-14-2012 End: 02-15-2012 Patient encounter Shruthi Song [facility] Start: 02-14-2012 End: 02-15-2012 Shruthi Song DO Work Phone: [facility] Start: 02-06-2012 End: 02-06-2012 Office outpatient visit 15 minutes Shruthi Song [facility] Start: 11-11-2011 End: 11-11-2011 Phone Encounter Shruthi Song [facility] Start: 11-11-2011 End: 11-11-2011 Shruthi Song DO Work Phone: [facility] Start: 11-10-2011 End: 11-10-2011 Patient encounter Shruthi Song [facility] Start: 11-10-2011 End: 11-10-2011 Shruthi Song DO Work Phone: [facility] Start: 11-04-2011 End: 11-04-2011 Patient encounter Shruthi Song [facility] Start: 11-04-2011 End: 11-04-2011 Shruthi Song DO Work Phone: [facility] Start: 10-21-2011 End: 10-21-2011 Phone Encounter Shruthi Song [facility] Start: 10-21-2011 End: 10-21-2011 Shruthivinny Song DO Work Phone: [facility] Start: 09-20-2011 End: 09-20-2011 Patient encounter Shruthi Song [facility] Start: 09-20-2011 End: 09-20-2011 Shruthivinny Garzaon DO Work Phone: [facility] Start: 06-20-2011 End: 06-20-2011 Patient encounter Shruthi Song [facility] Start: 06-20-2011 End: 06-20-2011 Shruthi Song DO Work Phone: [facility] Start: 06-01-2011 End: 06-01-2011 Phone Encounter Shruthi Song [facility] Start: 06-01-2011 End: 06-01-2011 Patient encounter Shruthi Song [facility] Start: 06-01-2011 End: 06-01-2011 Patient encounter status Shruthi Song DO Work Phone: [facility] Start: 06-01-2011 End: 06-01-2011 Shruthi Song DO Work Phone: [facility] Start: 03-01-2011 End: 03-01-2011 Phone Encounter Shruthi Song [facility] Start: 03-01-2011 End: 03-01-2011 Shruthi Song DO Work Phone: [facility] Start: 12-10-2010 End: 12-10-2010 Phone Encounter Shruthi Song [facility] Start: 12-10-2010 End: 12-10-2010 Shruthi Song DO Work Phone: [facility] Start: 12-06-2010 End: 12-06-2010 Patient encounter Shruthi Song [facility] Start: 12-06-2010 End: 12-06-2010 Shruthi Song DO Work Phone: [facility] Start: 11-26-2010 End: 11-26-2010 Phone Encounter Shruthi Song [facility] Start: 11-26-2010 End: 11-26-2010 Shruthi Song DO Work Phone: [facility] Start: 04-15-2010 End: 04-15-2010 Patient encounter Shruthi Song [facility] Start: 04-15-2010 End: 04-15-2010 Shruthi Song DO Work Phone: [facility] Start: 04-01-2010 End: 04-05-2010 Patient encounter Shruthi Song [facility] Start: 04-01-2010 End: 04-05-2010 Shruthi Song DO Work Phone: [facility] Start: 02-12-2010 End: 02-12-2010 Patient encounter Shruthi Song [facility] Start: 02-12-2010 End: 02-12-2010 Shruthi Song DO Work Phone: [facility] Start: 12-07-2009 End: 12-07-2009 Patient encounter Shruthi Song [facility] Start: 12-07-2009 End: 12-07-2009 Patient encounter status Shruthi Song DO Work Phone: [facility] Start: 12-07-2009 End: 12-07-2009 Shruthi Song DO Work Phone: [facility] Start: 04-23-2009 End: 04-23-2009 Phone Encounter Shruthi Song [facility] Start: 04-23-2009 End: 04-23-2009 Shruthi Song DO Work Phone: [facility] Start: 03-23-2009 End: 03-23-2009 Office outpatient visit 15 minutes Shruthi Song [facility] Start: 02-10-2009 End: 02-10-2009 Phone Encounter Shruthi Song [facility] Start: 02-10-2009 End: 02-10-2009 Patient encounter Shruthi Song [facility] Start: 02-10-2009 End: 02-10-2009 Patient encounter status Shruthi Song DO Work Phone: [facility] Start: 02-10-2009 End: 02-10-2009 Shruthi Song DO Work Phone: [facility] Start: 01-22-2008 End: 01-22-2008 Historical Summary Shruthi Song [facility] Start: 01-22-2008 End: 01-22-2008 Shruthi Song DO Work Phone: [facility] Start: 11-19-2007 End: 11-19-2007 Patient encounter Shruthi Song [facility] Start: 11-19-2007 End: 11-19-2007 Shruthi Song DO Work Phone: [facility] Start: 11-02-2006 End: 11-02-2006 Patient encounter Shruthi Song [facility] Start: 11-02-2006 End: 11-02-2006 Shruthi Song DO Work Phone: [facility] Start: 10-12-2006 End: 10-12-2006 Patient encounter Shruthi Song [facility] Start: 10-12-2006 End: 10-12-2006 Shruthi Song DO Work Phone: [facility] Start: 08-11-2006 End: 08-11-2006 Historical Summary Shruthi Song [facility] Start: 08-11-2006 End: 08-11-2006 Shruthi Song DO Work Phone: [facility] Start: 05-25-2006 End: 05-25-2006 Nursing evaluation of patient and report Shruthi Song [facility] Start: 05-25-2006 End: 05-25-2006 Shruthi Song DO Work Phone: [facility] Start: 05-22-2006 End: 05-22-2006 Historical Summary Shruthi Song [facility] Start: 05-22-2006 End: 05-22-2006 Shruthi Song DO Work Phone: [facility] Patient encounter procedure Iveth Blanco CMA [facility]; [facility] Work Phone: Patient encounter procedure Sam Vaca LPN [facility]; [facility] Work Phone: Patient encounter procedure Shavonne Galloway MA [facility]; [facility] Work Phone: Patient encounter procedure Ghazala Mota LPN [facility]; [facility] Work Phone: Physical examination Iveth Blanco CMA [facility]; [facility] Work Phone: Physical examination Sam Vaca LPN [facility]; [facility] Work Phone: Physical examination Kaila Cotto CMA [facility] Work Phone: Physical examination Shavonne Galloway MA [facility]; [facility] Work Phone: Physical examination Ghazala Mota [employer]/FIRST OFFICER [facility]; [facility] Work Phone: Procedures Date Procedure Procedure Detail Performing Clinician Start: 02-04-2025 Vitamin D, 25-hydroxy measurement Dr. Tee Ricardo MD Work Phone: Comment on above: Vitamin D StatusDeficiency: <20 ng/mL (5 0nmol/L)Insufficiency: 20-30 ng/mL (50-75 nmol/L)Sufficiency: 30-100 ng/mL (75-250 nmol/L)Toxicity: >100 ng/mL (>250 nmol/L) Start: 12-30-2024 CT angiography of chest with contrast Dr. Tee Ricardo MD Work Phone: Start: 12-09-2024 SARS-CoV-2, Influenza & RSV (PCR) Dr. Tee Ricardo MD Work Phone: Start: 12-09-2024 D-dimer assay, quantitative Dr. Tee Ricardo MD Work Phone: Comment on above: NORMAL D-Dimer level (<0.50) indicates n o DVT or PE. Start: 12-09-2024 X-ray of chest, PA and lateral views Dr. Tee Ricardo MD Work Phone: Start: 11-29-2024 Influenza & RSV (PCR) Dr. Tee Ricardo MD Work Phone: Start: 11-29-2024 X-ray of chest, PA and lateral views Dr. Tee Ricardo MD Work Phone: Start: 10-14-2024 SARS-CoV-2, Influenza & RSV (PCR) Dr. Tee Ricardo MD Work Phone: Start: 07-26-[address] Tee Ricardo MD Work Phone: Start: 09-26-2023 SARS-CoV-2, Influenza & RSV (PCR) Dr. Shruthi Song Work Phone: Start: 01-17-[address] Shruthi Song Work Phone: Start: 01-02-2023 End: 01-02-2023 Procedure Note: See Note; NOTES: [facility] [address] [place] [address] OFFICE VISIT Date of Service: 01/02/23 MR#: [id number] Acct: [id number] Name: GEETHA GONZALEZ Rep #: [id number] : 1950 Provider: GENEVA Pittman Age/Sex: 72/M Location[place] [facility] [place] Status: Signed HPI HPI History of Present Illness Details: ???Geetha Gonzalez is a 72 year old year-old gentleman that presents here today for cardiovascular follow-up.??? He does have a history of coronary artery disease with stenting in 2010, hypertension and hyperlipidemia. It appears pt is on both pravastatin and atorvastatin. He does not have any chest pain. He does have arm and hand numbness while he is sleeping. He does sometimes have a flushed feeling that comes over him. He does not have SOB with exertion, he thinks this is at baseline. He does not have any palpitations. He does not have any near syncope/syncope. He does not have any edema or claudication. 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: No Is patient in pain?: No Allergies No Known Allergies Allergy (Verified 01/02/23 14:30) Medications amitriptyline 25 mg tablet 25 mg PO QHS 12/24/15 [History Confirmed 01/02/23] aspirin 81 mg chewable tablet 81 mg PO DAILY@0800 12/24/15 [History Confirmed 01/02/23] metoprolol succinate 25 mg tablet,extended release 24 hr 25 mg PO DAILY 12/24/15 [History Confirmed 01/02/23] multivitamin with folic acid 400 mcg tablet 1 tab PO DAILY 06/02/16 [History Confirmed 01/02/23] nitroglycerin 0.4 mg sublingual tablet 0.4 mg sublingual Q5-15M PRN chest pain #25 tabs 11/03/21 [Rx Confirmed 01/02/23] levothyroxine 112 mcg tablet 137 mcg PO DAILY 01/02/23 [History Confirmed 01/02/23] pravastatin 80 mg tablet 80 mg PO DAILY 01/02/23 [History Confirmed 01/02/23] PFSH Medical History Atherosclerotic heart disease of [place] coronary artery without angina pectoris Chest pain Essential hypertension History of DVT (deep vein thrombosis) Hyperlipidemia Hypertension Hypothyroidism Long-term use of high-risk medication Osteoarthritis Palpitations TIA (transient ischemic attack) Surgical History H/O bilateral hip replacements History of cardiac catheterization History of hernia repair History of sinus surgery Postsurgical percutaneous transluminal coronary angioplasty (PTCA) status Presence of stent in coronary artery ( 11/30/10) Family History Father Atrial fibrillation Brother Myocardial infarction, Onset Age: 59 Social History Smoking Status: Never smoker alcohol intake: current details: rare substance use type: does not use ROS Const Const: Positive for fatigue; Negative for weakness, headache(s), frequent falls, excessive sweating, weight gain or weight loss Eyes Eyes: Negative for blind spots, loss of peripheral vision, transient loss of vision, blurry vision, change in vision or double vision ENT ENT: Negative for headache(s), dizziness, tinnitus, Nosebleed/epistaxis or balance problems Cardio Chest Pain: No Palpitations: No Edema: None Muscle aches with walking: None Resp Respiratory: Negative for SOB with activity, SOB at rest, SOB orthopnea SOB lying down or Cough GI GI: Negative nausea, vomiting, heartburn, bloating, vomiting blood/hematemesis, bright, red blood in stools or black,tarry stools : Negative for hematuria Musc Musc: Negative for muscle aches/ myalgia, muscle weakness, joint pain or balance problems Skin Skin: Negative rash or wounds Neuro Neuro: Negative for dizziness, lightheadedness, near syncope, syncope, orthostatic symptoms, frequent falls, headache(s), weakness, confusion, memory loss, restless legs, blurry vision or double vision Peter Hematologic/Lymphatic: Negative for easy bleeding or easy bruising Endo Endo: Positive for fatigue; Negative for cold intolerance, heat intolerance or excessive sweating Psych Psych: Negative for anxiety or depression Allergy Allergy/Immunology: Negative for rash Cardiology Exam Const Appearance: cooperative, healthy appearing, comfortable, no acute distress, well developed and well groomed Nutritional Appearance: average body habitus and well nourished Orientation: alert, awake and oriented x3 Head Head: normal to inspection, normocephalic and atraumatic Ears: hearing grossly normal bilaterally Nose: external nose normal Face and Sinus: face symmetric Eyes Eyelids: eyelids normal Conjunctivae: conjunctivae normal Pupils: PERRL EOM: EOM intact bilaterally Neck Neck: normal visual inspection, full ROM and no JVD Carotids: normal carotid upstroke Chest Chest inspection: normal inspection of the chest, symmetric chest movement and normal respiratory effort; Negative cough Auscultation: Bilateral: Clear to Auscultation Cardio Rate: regular rate Rhythm: regular rhythm Heart sounds: S1 normal and S2 normal; Negative rub, gallop or murmur GI GI: normal to inspection, soft and bowel sounds present Neuro General: patient alert, patient awake, patient oriented x3, gait normal and moves all extremities Skin Skin: no rashes or lesions noted Extremities Pulses: Normal: Right Posterior Tibial Pulse, Left Posterior Tibial Pulse, Right Radial Pulse and Left Radial Pulse Lower Extremity Edema: None: Bilateral Psych Psychological: normal affect Supplemental Info Supplemental Information Stress Test Report Date: 01-15-19 The patient exercised on a Charli protocol for 8 minutes completing Stage II and 2 minutes of Stage III achieving a peak heart rate of 134 bpm (87 % predicted maximal heart rate) with a peak blood pressure 170/78 mmHg and a peak MET capacity of 9 METs. The baseline ECG demonstrated sinus bradycardia. The peak exercise ECG demonstrated somatic/motion artifact with no obvious ECG changes. There were occasional PACs during recovery. The functional capacity was considered good. There was no complaint of chest discomfort during exercise or recovery. The examination was discontinued secondary to dyspnea. Impression: 1. Technically adequate (percent predicted maximal heart rate greater than 85%) exercise tolerance test 2. Peak exercise ECG with somatic/motion artifact with no obvious ECG changes 3. There were occasional PACs during recovery 4. Nuclear images pending Myocardial perfusion imaging study: Technique: The patient was injected with 11.7 mCi of technetium 99m Cardiolite and subsequently rest SPECT Cardiolite nuclear imaging was obtained in the horizontal long, vertical long, and short axis views. The patient exercised on a Charli protocol for 8 minutes completing Stage II and 2 minutes of Stage III achieving a peak heart rate of 134 bpm (87 % predicted maximal heart rate) with a peak blood pressure 170/78 mmHg and a peak MET capacity of 9 METs. The patient was injected with 33.9 mCi of technetium 99m Cardiolite and subsequently stress SPECT Cardiolite nuclear imaging was obtained in the horizontal long, vertical long, and short axis views. A gated Cardiolite study at peak stress was obtained. Interpretation: Rest and stress SPECT Cardiolite nuclear imaging status post realignment, normalization, and attenuation correction, demonstrates the appearance of relative uniform tracer uptake and myocardial perfusion appearing within normal limits. There is end systolic thickening and brightening. The gated Cardiolite study demonstrates myocardial thickening and inward wall motion. The reported LVEF is 67 %. Impression: 1. Rest and stress SPECT Cardiolite nuclear imaging demonstrate relative uniform tracer uptake and myocardial perfusion appearing within normal limits. 2. The gated Cardiolite study reports an LVEF of 67 % Labs: LDL Cholesterol 52 mg/dL (0-130) HDL Cholesterol 48 mg/dL (40-) Cholesterol 112 mg/dL (200) Triglycerides 60 mg/dL (-199) Diagnostics: Electrocardiogram Stress Test Stress Test Nuclear Medicine Chest X-Ray Pulmonary: No Data to Display Past Visits: Cardiology Visit 01/02/23 Assessment and Plan Assessment and Plan (1) Presence of stent in coronary artery: Status: Chronic Comment: PTCA/ILENE of the proximal to mid LAD 11/30/10 Plan: Patient does not have any symptoms of angina however he does have increase in fatigue. It has been 4 years since patient has had a stress test. Did discuss obtaining a stress test to evaluate for underlying ischemia. At this time patient would like to hold off. He will let us know if symptoms worsen over the summer. In the meantime he will continue with aggressive medical management with his aspirin, metoprolol and pravastatin. (2) Hyperlipidemia: Status: Chronic Qualifiers: Hyperlipidemia type: unspecified Qualified Code(s): E78.5 - Hyperlipidemia, unspecified; E78.5 - Hyperlipidemia, unspecified; E78.5 - Hyperlipidemia, unspecified Plan: It was noted that patient is on both atorvastatin and pravastatin. We will have him stop his atorvastatin. We will have him repeat his CMP and lipid panel today. (3) Essential hypertension: Status: Chronic Plan: Blood pressures controlled on current dose of metoprolol. 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 Shruthi Song, DO Shruthi Song DO Work Phone: Start: 07-20-2022 End: 07-20-2022 Procedure Note: See Note; NOTES: [facility] [address] [place] [address] OFFICE VISIT Date of Service: 07/20/22 MR#: [id number] Acct: [id number] Name: GEETHA GONZALEZ Rep #: [id number] : 1950 Provider: Dr. Demetri akers MD Age/Sex: 72/M Location[place] [facility] [place] Status: Signed HPI HPI History of Present Illness Details: This is a 72-year-old gentleman that presents here today for cardiovascular follow-up with a history of coronary artery disease with stenting in 2010, hyperlipidemia, and hypertension. The patient denies symptoms considered classic for angina pectoris, CHF / pulmonary edema (with respect to orthopnea / PND), ongoing palpitations, or near syncope / syncope. The patient denies ongoing peripheral pitting edema. The patient denies the use of sublingual nitroglycerin use. His lipid labs from 07-08-2022 were reviewed. His total cholesterol was 112 with an LDL 52 and an HDL of 48. His triglycerides were 60. He has undergone previous noninvasive and invasive cardiovascular studies. His studies are noted below. They have been reviewed with him. 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 Accompanied by: Self Allergies No Known Allergies Allergy (Verified 07/20/22 13:35) Medications amitriptyline 25 mg tablet 25 mg PO QHS 12/24/15 [History Confirmed 07/20/22] aspirin 81 mg chewable tablet 81 mg PO DAILY@0800 12/24/15 [History Confirmed 07/20/22] metoprolol succinate 25 mg tablet,extended release 24 hr 25 mg PO DAILY 12/24/15 [History Confirmed 07/20/22] multivitamin with folic acid 400 mcg tablet 1 tab PO DAILY 12/24/15 [History Confirmed 07/20/22] levothyroxine 112 mcg tablet 112 mcg PO DAILY 11/02/20 [History Confirmed 07/20/22] nitroglycerin 0.4 mg sublingual tablet 0.4 mg sublingual Q5-15M PRN chest pain #25 tabs 11/03/21 [Rx Confirmed 07/20/22] atorvastatin 40 mg tablet 40 mg PO QHS #90 tabs 06/27/22 [Rx Confirmed 07/20/22] PFSH Medical History Atherosclerotic heart disease of [place] coronary artery without angina pectoris Chest pain Essential hypertension History of DVT (deep vein thrombosis) Hyperlipidemia Hypertension Hypothyroidism Long-term use of high-risk medication Osteoarthritis Palpitations TIA (transient ischemic attack) Surgical History H/O bilateral hip replacements History of cardiac catheterization History of hernia repair History of sinus surgery Postsurgical percutaneous transluminal coronary angioplasty (PTCA) status Presence of stent in coronary artery ( 11/30/10) Family History Father Atrial fibrillation Brother Myocardial infarction, Onset Age: 59 Social History Smoking Status: Never smoker alcohol intake: current details: rare substance use type: does not use ROS Const Const: Negative for fatigue, weakness, body ache, fever(s), headache(s), chills, frequent falls, night sweats, daytime sleepiness, difficulty sleeping, excessive sweating, weight gain, weight loss, increased appetite, poor appetite, anorexia or other Eyes Eyes: Negative for blurry vision or double vision ENT ENT: Negative for headache(s), dizziness or balance problems Cardio Chest Pain: No Palpitations: No Edema: Bilateral (hands,pedals) Muscle aches with walking: None Resp Respiratory: Positive for SOB with activity (progressivel worse over the years) and Cough (chronic dry); Negative for SOB at rest, SOB orthopnea SOB lying down, Coughing up blood/hemoptysis, chest congestion, pain on inspiration, snoring, stridor, wheezing, crackles, paroxysmal nocturnal dyspnea or other Musc Musc: Negative for muscle aches/ myalgia, muscle weakness, joint pain or balance problems Neuro Neuro: Negative for dizziness, lightheadedness, near syncope, syncope, orthostatic symptoms, frequent falls, headache(s), weakness, confusion, memory loss, restless legs, blurry vision, double vision, vertigo, seizures, lack of coordination or other Endo Endo: Negative for fatigue or excessive sweating Cardiology Exam Const Appearance: cooperative, healthy appearing, comfortable, no acute distress, well developed and well groomed Nutritional Appearance: average body habitus and well nourished Orientation: alert, awake and oriented x3 Head Head: normal to inspection, normocephalic and atraumatic Ears: hearing grossly normal bilaterally Nose: external nose normal Face and Sinus: face symmetric Eyes Eyelids: eyelids normal Conjunctivae: conjunctivae normal Pupils: PERRL EOM: EOM intact bilaterally Neck Neck: normal visual inspection, full ROM and no JVD Carotids: normal carotid upstroke Chest Chest inspection: normal inspection of the chest, symmetric chest movement and normal respiratory effort; Negative cough Auscultation: Bilateral: Clear to Auscultation Cardio Rate: regular rate Rhythm: regular rhythm Heart sounds: S1 normal and S2 normal; Negative rub, gallop or murmur GI GI: normal to inspection, soft and bowel sounds present Neuro General: patient alert, patient awake, patient oriented x3, gait normal and moves all extremities Skin Skin: no rashes or lesions noted Extremities Pulses: Normal: Right Posterior Tibial Pulse, Left Posterior Tibial Pulse, Right Radial Pulse and Left Radial Pulse Lower Extremity Edema: None: Bilateral Psych Psychological: normal affect Supplemental Info Supplemental Information Stress Test Report Date: 01-15-19 The patient exercised on a Charli protocol for 8 minutes completing Stage II and 2 minutes of Stage III achieving a peak heart rate of 134 bpm (87 % predicted maximal heart rate) with a peak blood pressure 170/78 mmHg and a peak MET capacity of 9 METs. The baseline ECG demonstrated sinus bradycardia. The peak exercise ECG demonstrated somatic/motion artifact with no obvious ECG changes. There were occasional PACs during recovery. The functional capacity was considered good. There was no complaint of chest discomfort during exercise or recovery. The examination was discontinued secondary to dyspnea. Impression: 1. Technically adequate (percent predicted maximal heart rate greater than 85%) exercise tolerance test 2. Peak exercise ECG with somatic/motion artifact with no obvious ECG changes 3. There were occasional PACs during recovery 4. Nuclear images pending Myocardial perfusion imaging study: Technique: The patient was injected with 11.7 mCi of technetium 99m Cardiolite and subsequently rest SPECT Cardiolite nuclear imaging was obtained in the horizontal long, vertical long, and short axis views. The patient exercised on a Charli protocol for 8 minutes completing Stage II and 2 minutes of Stage III achieving a peak heart rate of 134 bpm (87 % predicted maximal heart rate) with a peak blood pressure 170/78 mmHg and a peak MET capacity of 9 METs. The patient was injected with 33.9 mCi of technetium 99m Cardiolite and subsequently stress SPECT Cardiolite nuclear imaging was obtained in the horizontal long, vertical long, and short axis views. A gated Cardiolite study at peak stress was obtained. Interpretation: Rest and stress SPECT Cardiolite nuclear imaging status post realignment, normalization, and attenuation correction, demonstrates the appearance of relative uniform tracer uptake and myocardial perfusion appearing within normal limits. There is end systolic thickening and brightening. The gated Cardiolite study demonstrates myocardial thickening and inward wall motion. The reported LVEF is 67 %. Impression: 1. Rest and stress SPECT Cardiolite nuclear imaging demonstrate relative uniform tracer uptake and myocardial perfusion appearing within normal limits. 2. The gated Cardiolite study reports an LVEF of 67 % Labs: LDL Cholesterol 52 mg/dL (0-130) HDL Cholesterol 48 mg/dL (40-) Triglycerides 60 mg/dL (-199) VLDL Cholesterol 12 mg/dL (5-40) Diagnostics: Electrocardiogram Stress Test NM Stress Test Chest X-Ray Pulmonary: No Data to Display Assessment and Plan Assessment and Plan (1) Atherosclerotic heart disease of [place] coronary artery without angina pectoris: Status: Chronic Qualifiers: [place] vs. transplanted heart: [place] heart Qualified Code(s): I25.10 - Atherosclerotic heart disease of [place] coronary artery without angina pectoris; I25.10 - Atherosclerotic heart disease of [place] coronary artery without angina pectoris; I25.10 - Atherosclerotic heart disease of [place] coronary artery without angina pectoris Comment: PTCA/ILENE of the proximal to mid LAD 11/30/10 Plan: At the present time he appears to be doing well with no acute symptoms or adverse events. He will continue his current medical therapy. (2) Presence of stent in coronary artery: Status: Chronic Comment: PTCA/ILENE of the proximal to mid LAD 11/30/10 Plan: He has a history of PCI. He will continue medical management and follow-up. (3) Hyperlipidemia: Status: Chronic Qualifiers: Hyperlipidemia type: unspecified Qualified Code(s): E78.5 - Hyperlipidemia, unspecified; E78.5 - Hyperlipidemia, unspecified; E78.5 - Hyperlipidemia, unspecified Plan: He states he is better changing from pravastatin to atorvastatin. His lipid labs appear to be stable. He will continue his current therapy. (4) Essential hypertension: Status: Chronic Plan: His blood pressure remains well controlled. He does not appear to be symptomatic with his lower pressures. He will continue his current therapy and follow-up. Plan Details Additional Comments: Thank you for allowing me to participate in the care of your patient. Please don't hesitate to call if any issues arise. This note was generated using a voice recognition system and there may be incorrect words, spelling or punctuation that were not noted when reviewing the office note prior to saving. Follow Up: 6 Months (with PFM ) COVID (Procedure Consent) Procedure Criteria Procedure Criteria: Yes Elective The surgeon/proceduralist and patient have discussed in detail the risk of exposure to and/or potential harm posed by the COVID-19 virus with having a surgery/procedure at this time versus the risk of??? delaying the surgery/procedure. It is not possible to know either the risk of delaying the surgery or procedure or chance of getting an infection with perfect accuracy, but a joint decision was made between the patient and the surgeon/proceduralist ???to proceed at this time with the scheduled surgery/procedure as indicated on the consent form. The surgeon/proceduralist and patient have discussed in detail the risk of exposure to and/or potential harm posed by the COVID-19 virus with having a surgery/procedure at this time versus the risk of??? delaying the surgery/procedure. It is not possible to know either the risk of delaying the surgery or procedure or chance of getting an infection with perfect accuracy, but a joint decision was made between the patient and the surgeon/proceduralist ???to proceed at this time with the scheduled surgery/procedure as indicated on the consent form. Coding Level of Care Code Off vis,est,level 3 Diagnoses Atherosclerotic heart disease of [place] coronary artery without angina pectoris I25.10; I25.10; I25.10 [place] vs. transplanted heart: [place] heart Presence of stent in coronary artery Z95.5 Hyperlipidemia E78.5; E78.5; E78.5 Hyperlipidemia type: unspecified Essential hypertension I10 Coding Level of Care Code Off vis,est,level 3 Diagnoses Atherosclerotic heart disease of [place] coronary artery without angina pectoris I25.10; I25.10; I25.10 [place] vs. transplanted heart: [place] heart Presence of stent in coronary artery Z95.5 Hyperlipidemia E78.5; E78.5; E78.5 Hyperlipidemia type: unspecified Essential hypertension I10 07/20/22 1402 <Electronically signed by Demetri Valverde MD> Date Demetri Valverde MD Cosigner Signature: Date (if applicable) CC: Dr. Shruthi Song, DO Shruthi Song DO Work Phone: Start: 11-03-2021 End: 11-03-2021 Cardiology Visit Report Comments: See Note; NOTES: [facility] [address] [place] [address] OFFICE VISIT Date of Service: 11/03/21 MR#: [id number] Acct: [id number] Name: GEETHA GONZALEZ Rep #: [id number] : 1950 Provider: Dr. Demetri akers MD Age/Sex: 71/M Location: [facility] Status: Signed [facility] History of Present Illness Details: This is a 71-year-old gentleman that presents here today for cardiovascular follow-up with a history of coronary artery disease with stenting in 2010, hyperlipidemia, and hypertension. The patient denies symptoms considered classic for angina pectoris, CHF / pulmonary edema (with respect to orthopnea / PND), ongoing palpitations, or near syncope / syncope. The patient denies ongoing peripheral pitting edema. The patient denies the use of sublingual nitroglycerin use. He has undergone previous noninvasive and invasive cardiovascular studies. His studies are noted below. They have been reviewed with him. 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 Accompanied by: Self Allergies No Known Allergies Allergy (Verified 11/03/21 14:53) Medications amitriptyline 25 mg PO QHS 12/24/15 [History Confirmed 11/03/21] aspirin 81 mg PO DAILY@0800 12/24/15 [History Confirmed 11/03/21] metoprolol succinate 25 mg PO DAILY 12/24/15 [History Confirmed 11/03/21] multivitamin with folic acid 1 tab PO DAILY 12/24/15 [History Confirmed 11/03/21] levothyroxine 112 mcg tablet 112 mcg PO DAILY 11/02/20 [History Confirmed 11/03/21] colestipol 1 gram tablet 2 g PO BID #360 tab 12/04/20 [Rx Confirmed 11/03/21] pravastatin 80 mg tablet 80 mg PO QHS #90 tab 12/04/20 [Rx Confirmed 11/03/21] nitroglycerin 0.4 mg sublingual tablet 0.4 mg SUBLINGUAL Q5-15M PRN #25 tab 11/03/21 [Rx Confirmed 11/03/21] [facility] Medical History Atherosclerotic heart disease of [place] coronary artery without angina pectoris Chest pain Essential hypertension History of DVT (deep vein thrombosis) Hyperlipidemia Hypertension Hypothyroidism Long-term use of high-risk medication Osteoarthritis Palpitations TIA (transient ischemic attack) Surgical History H/O bilateral hip replacements History of cardiac catheterization History of hernia repair History of sinus surgery Postsurgical percutaneous transluminal coronary angioplasty (PTCA) status Presence of stent in coronary artery ( 11/30/10) Family History Father Atrial fibrillation Brother Myocardial infarction, Onset Age: 59 Social History Smoking Status: Never smoker alcohol intake: current details: rare substance use type: does not use ROS Const Const: Positive for fatigue; Negative for weakness, frequent falls, excessive sweating, weight gain or weight loss Eyes Eyes: Negative for transient loss of vision, blurry vision or change in vision ENT ENT: Negative for dizziness or balance problems Cardio Chest Pain: No Palpitations: No Edema: None Muscle aches with walking: None Resp Respiratory: Positive for SOB with activity (baseline) and Cough (dry); Negative for SOB at rest GI GI: Negative vomiting or vomiting blood/hematemesis : Negative for hematuria Musc Musc: Negative for muscle aches/ myalgia, muscle weakness, joint pain or balance problems Skin Skin: Negative non-healing lesions or rash Neuro Neuro: Negative for dizziness, lightheadedness, orthostatic symptoms, frequent falls, weakness or blurry vision Peter Hematologic/Lymphatic: Negative for easy bleeding Endo Endo: Positive for fatigue; Negative for excessive sweating Psych Psych: Negative for anxiety or depression Allergy Allergy/Immunology: Negative for hives and Negative for rash Cardiology Exam Const Appearance: cooperative, healthy appearing, comfortable, no acute distress, well developed and well groomed Nutritional Appearance: average body habitus and well nourished Orientation: alert, awake and oriented x3 Head Head: normal to inspection, normocephalic and atraumatic Ears: hearing grossly normal bilaterally Nose: external nose normal Face and Sinus: face symmetric Eyes Eyelids: eyelids normal Conjunctivae: conjunctivae normal Pupils: PERRL EOM: EOM intact bilaterally Neck Neck: normal visual inspection, full ROM and no JVD Carotids: normal carotid upstroke Chest Chest inspection: normal inspection of the chest, symmetric chest movement and normal respiratory effort; Negative cough Auscultation: Bilateral: Clear to Auscultation Cardio Rate: regular rate Rhythm: regular rhythm Heart sounds: S1 normal and S2 normal; Negative rub, gallop or murmur GI GI: normal to inspection, soft and bowel sounds present Neuro General: patient alert, patient awake, patient oriented x3, gait normal and moves all extremities Skin Skin: no rashes or lesions noted Extremities Pulses: Normal: Right Posterior Tibial Pulse, Left Posterior Tibial Pulse, Right Radial Pulse and Left Radial Pulse Lower Extremity Edema: None: Bilateral Psych Psychological: normal affect Supplemental Info Supplemental Information Stress Test Report Date: 01-15-19 The patient exercised on a Charli protocol for 8 minutes completing Stage II and 2 minutes of Stage III achieving a peak heart rate of 134 bpm (87 % predicted maximal heart rate) with a peak blood pressure 170/78 mmHg and a peak MET capacity of 9 METs. The baseline ECG demonstrated sinus bradycardia. The peak exercise ECG demonstrated somatic/motion artifact with no obvious ECG changes. There were occasional PACs during recovery. The functional capacity was considered good. There was no complaint of chest discomfort during exercise or recovery. The examination was discontinued secondary to dyspnea. Impression: 1. Technically adequate (percent predicted maximal heart rate greater than 85%) exercise tolerance test 2. Peak exercise ECG with somatic/motion artifact with no obvious ECG changes 3. There were occasional PACs during recovery 4. Nuclear images pending Myocardial perfusion imaging study: Technique: The patient was injected with 11.7 mCi of technetium 99m Cardiolite and subsequently rest SPECT Cardiolite nuclear imaging was obtained in the horizontal long, vertical long, and short axis views. The patient exercised on a Charli protocol for 8 minutes completing Stage II and 2 minutes of Stage III achieving a peak heart rate of 134 bpm (87 % predicted maximal heart rate) with a peak blood pressure 170/78 mmHg and a peak MET capacity of 9 METs. The patient was injected with 33.9 mCi of technetium 99m Cardiolite and subsequently stress SPECT Cardiolite nuclear imaging was obtained in the horizontal long, vertical long, and short axis views. A gated Cardiolite study at peak stress was obtained. Interpretation: Rest and stress SPECT Cardiolite nuclear imaging status post realignment, normalization, and attenuation correction, demonstrates the appearance of relative uniform tracer uptake and myocardial perfusion appearing within normal limits. There is end systolic thickening and brightening. The gated Cardiolite study demonstrates myocardial thickening and inward wall motion. The reported LVEF is 67 %. Impression: 1. Rest and stress SPECT Cardiolite nuclear imaging demonstrate relative uniform tracer uptake and myocardial perfusion appearing within normal limits. 2. The gated Cardiolite study reports an LVEF of 67 % Labs: LDL Cholesterol 61 mg/dL (0-130) HDL Cholesterol 54 mg/dL (40-) Triglycerides 61 mg/dL (-199) VLDL Cholesterol 12 mg/dL (5-40) Diagnostics: Electrocardiogram Stress Test NM Stress Test Chest X-Ray Pulmonary: No Data to Display Assessment and Plan Assessment and Plan (1) Atherosclerotic heart disease of [place] coronary artery without angina pectoris: Status: Chronic Qualifiers: [place] vs. transplanted heart: [place] heart Qualified Code(s): I25.10 - Atherosclerotic heart disease of [place] coronary artery without angina pectoris; I25.10 - Atherosclerotic heart disease of [place] coronary artery without angina pectoris; I25.10 - Atherosclerotic heart disease of [place] coronary artery without angina pectoris Comment: PTCA/ILENE of the proximal to mid LAD 11/30/10 Plan - Dr. Demetri Valverde MD: At the present time he appears to be doing well with no acute symptoms or adverse events. He will continue his current medical therapy. (2) Presence of stent in coronary artery: Status: Chronic Comment: PTCA/ILENE of the proximal to mid LAD 11/30/10 Plan - Dr. Demetri Valverde MD: He has a history of PCI. He will continue medical management and follow-up. (3) Hyperlipidemia: Status: Chronic Qualifiers: Hyperlipidemia type: unspecified Qualified Code(s): E78.5 - Hyperlipidemia, unspecified; E78.5 - Hyperlipidemia, unspecified; E78.5 - Hyperlipidemia, unspecified Plan - Dr. Demetri Valverde MD: Labs will be appreciated for continuity of care. (4) Essential hypertension: Status: Chronic Plan - Dr. Demetri Valverde MD: His blood pressure remains well controlled. He does not appear to be symptomatic with his lower pressures. He will continue his current therapy and follow-up. Plan Details Other Medications: New: nitroglycerin 0.4 mg sublingual Q5-15M PRN 25 tabs 1RF chest pain Additional Comments: Thank you for allowing me to participate in the care of your patient. Please don't hesitate to call if any issues arise. This note was generated using a voice recognition system and there may be incorrect words, spelling or punctuation that were not noted when reviewing the office note prior to saving. Follow Up: 6 Months (with PFM ) COVID (Procedure Consent) Procedure Criteria Procedure Criteria: Yes Elective The surgeon/proceduralist and patient have discussed in detail the risk of exposure to and/or potential harm posed by the COVID-19 virus with having a surgery/procedure at this time versus the risk of??? delaying the surgery/procedure. It is not possible to know either the risk of delaying the surgery or procedure or chance of getting an infection with perfect accuracy, but a joint decision was made between the patient and the surgeon/proceduralist ???to proceed at this time with the scheduled surgery/procedure as indicated on the consent form. Coding Level of Care Code Off vis,est,level 3 Diagnoses Atherosclerotic heart disease of [place] coronary artery without angina pectoris I25.10; I25.10; I25.10 [place] vs. transplanted heart: [place] heart Presence of stent in coronary artery Z95.5 Hyperlipidemia E78.5; E78.5; E78.5 Hyperlipidemia type: unspecified Essential hypertension I10 Coding Level of Care Code Off vis,est,level 3 Diagnoses Atherosclerotic heart disease of [place] coronary artery without angina pectoris I25.10; I25.10; I25.10 [place] vs. transplanted heart: [place] heart Presence of stent in coronary artery Z95.5 Hyperlipidemia E78.5; E78.5; E78.5 Hyperlipidemia type: unspecified Essential hypertension I10 11/03/21 1543 <Electronically signed by Demetri Valverde MD> Date Demetri Valverde MD Cosigner Signature: Date (if applicable) CC: Dr. Shruthi Song, DO Shruthi Song DO Work Phone: Start: 12-04-2020 End: 12-04-2020 Cardiology Visit Report Comments: See Note; NOTES: [facility] [address] [place] [address]. [address] [place], [place] [address] OFFICE VISIT Date of Service: 12/04/20 MR#: [id number] Acct: [id number] Name: GEETHA GONZALEZ Rep #: [id number] : 1950 Provider: CHARLES mccann Age/Sex: 70/M Location: [facility] Status: Signed [facility]PI [facility] History of Present Illness Details: This is a 70-year-old gentleman that presents here today for cardiovascular follow-up with a history of coronary artery disease with stenting in 2010, hypertension and hyperlipidemia. He denies any chest, arm, jaw or neck discomfort. He denies shortness of breath with activity. He does note bilateral upper extremity edema feeling. He states it is harder to take off his wedding ring. He acknowledges dry cough that did not improve after holding statin medication. He states occasional lightheadedness when standing too quickly. Intake Vital Signs 12/04/20 14:54 Height 5 ft 9 in Weight: 189 lb BMI 27.8 BP 118/62 Blood Pressure Location Lt brachial Position Sitting Respiration 16 Pulse 68 Pulse Source Auscultation Intake Visit Reasons: 3-4 WK F/U Film Processing Shift Supervisor Required: No Accompanied by: None Is patient in pain?: No Allergies No Known Allergies Allergy (Verified 12/04/20 14:57) Medications amitriptyline 25 mg PO QHS 12/24/15 [History Confirmed 12/04/20] aspirin 81 mg PO DAILY@0800 12/24/15 [History Confirmed 12/04/20] metoprolol succinate 25 mg PO DAILY 12/24/15 [History Confirmed 12/04/20] multivitamin with folic acid 1 tab PO DAILY 12/24/15 [History Confirmed 12/04/20] nitroglycerin 0.4 mg sublingual tablet 0.4 mg SUBLINGUAL Q5-15M PRN 07/11/17 [History Confirmed 12/04/20] levothyroxine 112 mcg tablet 112 mcg PO DAILY 11/02/20 [History Confirmed 12/04/20] colestipol 1 gram tablet 2 g PO BID #360 tab 12/04/20 [Rx Confirmed 12/04/20] pravastatin 80 mg tablet 80 mg PO QHS #90 tab 12/04/20 [Rx Confirmed 12/04/20] Ejection fraction %: 55 to 59 PFSH Medical History Atherosclerotic heart disease of [place] coronary artery without angina pectoris Chest pain Essential hypertension History of DVT (deep vein thrombosis) Hyperlipidemia Hypertension Hypothyroidism Long-term use of high-risk medication Osteoarthritis Palpitations TIA (transient ischemic attack) Surgical History H/O bilateral hip replacements History of cardiac catheterization History of hernia repair History of sinus surgery Postsurgical percutaneous transluminal coronary angioplasty (PTCA) status Presence of stent in coronary artery ( 11/30/10) Family History Father Atrial fibrillation Brother Myocardial infarction, Onset Age: 59 Social History Smoking Status: Never smoker alcohol intake: current details: rare substance use type: does not use ROS Const Const: Negative for fatigue, weakness, headache(s), frequent falls, difficulty sleeping or excessive sweating Eyes Eyes: Negative for loss of peripheral vision, transient loss of vision, blurry vision, double vision or tunnel vision ENT ENT: Negative for headache(s), dizziness, Nosebleed/epistaxis or balance problems Cardio Chest Pain: No Palpitations: No Edema: Bilateral Muscle aches with walking: None Resp Respiratory: Positive for Cough (Dry cough, did not improve by holding pravastatin); Negative for SOB with activity, SOB at rest, SOB orthopnea SOB lying down or paroxysmal nocturnal dyspnea GI GI: Negative nausea, vomiting, heartburn or black,tarry stools : Negative for hematuria Musc Musc: Negative for muscle aches/ myalgia, muscle weakness, joint pain or balance problems Skin Skin: Negative non-healing lesions, rash or unusual bruising Neuro Neuro: Positive for lightheadedness (Occasional if stands up too quickly); Negative for dizziness, near syncope, syncope, frequent falls, headache(s), weakness, blurry vision, double vision or lack of coordination Peter Hematologic/Lymphatic: Negative for easy bleeding or easy bruising Endo Endo: Negative for fatigue, excessive sweating or increased thirst/drinking Psych Psych: Negative for anxiety or depression Allergy Allergy/Immunology: Negative for hives and Negative for rash Cardiology Exam Const Appearance: cooperative, healthy appearing, comfortable and no acute distress Nutritional Appearance: average body habitus and well nourished Orientation: alert, awake and oriented x3 Head Head: normal to inspection Ears: hearing grossly normal bilaterally Nose: external nose normal Face and Sinus: face symmetric Mouth: oral mucosae normal Eyes General: appearance normal, both eyes and all related structures Eyelids: eyelids normal EOM: EOM intact bilaterally Neck Neck: normal visual inspection and no JVD Carotids: normal carotid upstroke Chest Chest inspection: normal inspection of the chest, symmetric chest movement and normal respiratory effort; Negative cough Auscultation: Bilateral: Clear to Auscultation Cardio Rate: regular rate Rhythm: regular rhythm Heart sounds: S1 normal and S2 normal; Negative rub, gallop or murmur GI GI: normal to inspection Neuro General: patient alert, patient awake, patient oriented x3 and CN's II-XI intact bilaterally Skin Skin: no rashes or lesions noted Extremities Pulses: Normal: Right Posterior Tibial Pulse, Left Posterior Tibial Pulse, Right Radial Pulse and Left Radial Pulse Lower Extremity Edema: None: Bilateral Psych Psychological: normal affect Assessment and Plan Assessment and Plan (1) Atherosclerotic heart disease of [place] coronary artery without angina pectoris: Status: Chronic Qualifiers: [place] vs. transplanted heart: [place] heart Qualified Code(s): I25.10 - Atherosclerotic heart disease of [place] coronary artery without angina pectoris; I25.10 - Atherosclerotic heart disease of [place] coronary artery without angina pectoris; I25.10 - Atherosclerotic heart disease of [place] coronary artery without angina pectoris Comment: PTCA/ILENE of the proximal to mid LAD 11/30/10 Marvin - Janes Dennis SHREDDING MACHINE TENDER, SHREDDING MACHINE TENDER-C: Patient denies any chest pain, arm pain, jaw pain, neck pain, shortness of breath, or fatigue suggestive of angina at this time. We will continue to monitor. We will not make any medication regimen changes and will continue risk factor modification. (2) Presence of stent in coronary artery: Status: Chronic Comment: PTCA/ILENE of the proximal to mid LAD 11/30/10 Marvin - Janes Dennis NP, SHREDDING MACHINE TENDER-C: He will continue current medical therapy which includes aspirin, colestipol, metoprolol, and pravastatin. He is not on GREG inhibitor or ARB at this time on account of controlled blood pressure and preserved ejection fraction. This can be considered on ongoing basis as indicated. (3) Essential hypertension: Status: Chronic Plan - Janes Dennis NP, SHREDDING MACHINE TENDER-C: Patient's blood pressure is well-controlled. We will continue to monitor. We will not make any medication regimen changes. (4) Hyperlipidemia: Status: Chronic Qualifiers: Hyperlipidemia type: unspecified Qualified Code(s): E78.5 - Hyperlipidemia, unspecified; E78.5 - Hyperlipidemia, unspecified; E78.5 - Hyperlipidemia, unspecified Marvin Dennis NP, SHREDDING MACHINE TENDER-C: Patient's cough did not change with adjustment of statin medication. Lipid panel from 04/29/2020 showed Cholesterol: 127, HDL: 54, LDL: 61, and Triglycerides: 61. He will current cholesterol- lowering medication. He will repeat lipid and liver profile at his convenience in a fasting state. Plan Details Other Medications: Refilled: colestipol 2 grams (2 x 1 gram) PO BID 360 tabs 3RF Resumed: pravastatin 80 mg PO QHS 90 tabs 3RF pravastatin 80 mg PO QHS Additional Comments: In respect to his arm feeling swollen and cough, he was asked to discuss further with primary care physician. He was asked to obtain a new pillow discern if his arm numbness is a sleep-related issue. Thank you for allowing us to participate in the patients plan of care, if you have any questions please do not hesitate to call. This note was generated using a voice recognition system and there may be incorrect words, spelling or punctuation that were not noted when reviewing the office note prior to saving. Follow Up: 5 Months (SHREDDING MACHINE TENDER/PA) 10 Months (PFM) Coding Level of Care Code Off vis,est,level 3 Diagnoses Atherosclerotic heart disease of [place] coronary artery without angina pectoris I25.10; I25.10; I25.10 [place] vs. transplanted heart: [place] heart Presence of stent in coronary artery Z95.5 Essential hypertension I10 Hyperlipidemia E78.5; E78.5; E78.5 Hyperlipidemia type: unspecified Coding Level of Care Code Off vis,est,level 3 Diagnoses Atherosclerotic heart disease of [place] coronary artery without angina pectoris I25.10; I25.10; I25.10 [place] vs. transplanted heart: [place] heart Presence of stent in coronary artery Z95.5 Essential hypertension I10 Hyperlipidemia E78.5; E78.5; E78.5 Hyperlipidemia type: unspecified Supplemental Info Supplemental Information Stress Test Report Date: 01-15-19 The patient exercised on a Charli protocol for 8 minutes completing Stage II and 2 minutes of Stage III achieving a peak heart rate of 134 bpm (87 % predicted maximal heart rate) with a peak blood pressure 170/78 mmHg and a peak MET capacity of 9 METs. The baseline ECG demonstrated sinus bradycardia. The peak exercise ECG demonstrated somatic/motion artifact with no obvious ECG changes. There were occasional PACs during recovery. The functional capacity was considered good. There was no complaint of chest discomfort during exercise or recovery. The examination was discontinued secondary to dyspnea. Impression: 1. Technically adequate (percent predicted maximal heart rate greater than 85%) exercise tolerance test 2. Peak exercise ECG with somatic/motion artifact with no obvious ECG changes 3. There were occasional PACs during recovery 4. Nuclear images pending Myocardial perfusion imaging study: Technique: The patient was injected with 11.7 mCi of technetium 99m Cardiolite and subsequently rest SPECT Cardiolite nuclear imaging was obtained in the horizontal long, vertical long, and short axis views. The patient exercised on a Charli protocol for 8 minutes completing Stage II and 2 minutes of Stage III achieving a peak heart rate of 134 bpm (87 % predicted maximal heart rate) with a peak blood pressure 170/78 mmHg and a peak MET capacity of 9 METs. The patient was injected with 33.9 mCi of technetium 99m Cardiolite and subsequently stress SPECT Cardiolite nuclear imaging was obtained in the horizontal long, vertical long, and short axis views. A gated Cardiolite study at peak stress was obtained. Interpretation: Rest and stress SPECT Cardiolite nuclear imaging status post realignment, normalization, and attenuation correction, demonstrates the appearance of relative uniform tracer uptake and myocardial perfusion appearing within normal limits. There is end systolic thickening and brightening. The gated Cardiolite study demonstrates myocardial thickening and inward wall motion. The reported LVEF is 67 %. Impression: 1. Rest and stress SPECT Cardiolite nuclear imaging demonstrate relative uniform tracer uptake and myocardial perfusion appearing within normal limits. 2. The gated Cardiolite study reports an LVEF of 67 % Labs: LDL Cholesterol 61 mg/dL (0-130) HDL Cholesterol 54 mg/dL (40-) Triglycerides 61 mg/dL (-199) VLDL Cholesterol 12 mg/dL (5-40) Diagnostics: Electrocardiogram Stress Test NM Stress Test Chest X-Ray Pulmonary: No Data to Display 12/04/20 1537 <Electronically signed by Janes Dennis NP, NP-C> Date Janes Dennis NP, NP-C Cosigner Signature: Date (if applicable) CC: DO Shruthi Benjamin DO Work Phone: Start: 11-02-2020 End: 11-03-2020 Chest PA and Lateral Comments: See Note; NOTES: [facility] Imaging Services [address] [place] [address] Chest PA and Lateral MR#: [id number] Acct: [id number] Name: GEETHA GONZALEZ Rep #: [id number] : 1950 M 70 From: Armando Boyer MD PCP: Dr. Shruthi Song DO Status: REG CLI Study: Chest PA and Lateral Date of Exam: 11/02/20 Exam# [id number] Ordering Dr: Janes Dennis NP SHREDDING MACHINE TENDER-C STUDY: X-RAY CHEST REASON FOR EXAM: Male, 70 years old. SOB, Cough TECHNIQUE: PA and lateral views of the chest. COMPARISON: 03/23/2015 FINDINGS: The lungs are clear and expanded. There is no demonstrated pleural abnormality. Normal size heart. Normal mediastinum and jeremias. Normal visualized pulmonary arteries. Normal visualized aortic arch and descending thoracic aorta. Normal visualized thoracic spine. Normal visualized ribs, clavicles, and shoulders. There is no demonstrated abnormality of the visualized soft tissue structures of the upper abdomen. RAD/Chest PA and Lateral IMPRESSION: Normal x-ray examination of the chest. Electronically Signed: Armando Boyer MD at 9:18 EDT Tel , Service support , CC: SHREDDING MACHINE TENDER-C Janes Dennis; Dr. Shruthi Song DO Community Living Specialist: Signed Shruthi Song DO Work Phone: Start: 11-02-2020 End: 11-02-2020 Cardiology Visit Report Comments: See Note; NOTES: [facility] [address] [place] [address] OFFICE VISIT Date of Service: 11/02/20 MR#: [id number] Acct: [id number] Name: GEETHA GONZALEZ Rep #: [id number] : 1950 Provider: CHARLES mccann Age/Sex: 70/M Location[place] [facility] [place] Status: Signed HPI HPI History of Present Illness Details: This is a 70-year-old gentleman that presents here today for cardiovascular follow-up with a history of coronary artery disease with stenting in 2010, hypertension and hyperlipidemia. He denies chest, arm, jaw, or neck discomfort. His exercise tolerance is stable. He denies symptoms of palpitations, lightheadedness, dizziness, near syncope, or syncopal episodes. He denies edema or claudication issues. He denies orthopnea, PND, fever, chills, blood in urine, blood in stool, myalgia, or unexplainable fatigue. He states with his dry cough for a year he notes SOB. He denies such SOB without cough. He states when he really exerts himself he notes SOB that he feels is worse than expect for such activity. This SOB improves with rest. In respects to cough, he drinks fluid or uses a cough lozenges to help. Intake Vital Signs 11/02/20 Height 5 ft 9 in 11/02/20 Weight: 190 lb 11/02/20 BMI 28.0 11/02/20 BP 128/68 H 11/02/20 Blood Pressure Location Lt brachial 11/02/20 Position Sitting 11/02/20 Respiration 16 11/02/20 Pulse 56 L 11/02/20 Pulse Source Auscultation Intake Visit Reasons: 6-9 MO F/U Film Processing Shift Supervisor Required: No Accompanied by: None Is patient in pain?: No Allergies No Known Allergies Allergy (Verified 11/02/20 15:33) Medications Amitriptyline HCl 25 mg PO QHS 12/24/15 [History Confirmed 11/02/20] Aspirin [Aspirin, Baby] 81 mg PO DAILY@0800 12/24/15 [History Confirmed 11/02/20] Metoprolol(XL)Succ [Toprol Xl (Beta Luh)] 25 mg PO DAILY 12/24/15 [History Confirmed 11/02/20] Multivitamins,Therapeutic [Multivitamin] 1 tab PO DAILY 12/24/15 [History Confirmed 11/02/20] pravastatin 80 mg tablet 80 mg PO QHS 12/24/15 [History Confirmed 11/02/20] nitroglycerin 0.4 mg sublingual tablet 0.4 mg SUBLINGUAL Q5-15M PRN 07/11/17 [History Confirmed 11/02/20] colestipol 1 gram tablet 2 g PO BID #120 tab 08/05/20 [Rx Confirmed 11/02/20] levothyroxine 112 mcg tablet 112 mcg PO DAILY 11/02/20 [History Confirmed 11/02/20] Ejection fraction %: 65 to 70 [facility] Medical History Essential hypertension (Chronic) Long-term use of high-risk medication (Chronic) Atherosclerotic heart disease of [place] coronary artery without angina pectoris (Chronic) Palpitations (Acute) Chest pain (Acute) Hypothyroidism (Chronic) Hyperlipidemia (Chronic) Osteoarthritis (Acute) TIA (transient ischemic attack) (Acute) History of DVT (deep vein thrombosis) (Resolved) Hypertension (Inactive) Surgical History Presence of stent in coronary artery (Chronic 11/30/10) Postsurgical percutaneous transluminal coronary angioplasty (PTCA) status (Chronic) H/O bilateral hip replacements (Resolved) History of cardiac catheterization (Resolved) History of hernia repair (Resolved) History of sinus surgery (Resolved) Family History Father Atrial fibrillation Brother Myocardial infarction, Onset Age: 59 Social History (Updated 11/02/20 @ 16:25 by Janes Dennis NP, SHREDDING MACHINE TENDER-C) Smoking Status: Never smoker alcohol intake: current details: rare substance use type: does not use ROS Const Const: Negative for fatigue, weakness, headache(s), frequent falls, difficulty sleeping or excessive sweating Eyes Eyes: Negative for loss of peripheral vision, transient loss of vision, blurry vision, double vision or tunnel vision ENT ENT: Negative for headache(s), dizziness, Nosebleed/epistaxis or balance problems Cardio Chest Pain: No Palpitations: No Edema: None Muscle aches with walking: None Resp Respiratory: Positive for SOB with activity (Increased), SOB at rest (Occasionally) and Cough (chronic dry cough over last year); negative for SOB orthopnea SOB lying down or paroxysmal nocturnal dyspnea GI GI: Negative nausea, vomiting, heartburn or black,tarry stools : Negative for hematuria Musc Musc: Negative for muscle aches/ myalgia, muscle weakness, joint pain or balance problems Skin Skin: Negative non-healing lesions, rash or unusual bruising Neuro Neuro: Positive for lightheadedness (Occasionally when standing up too quickly); negative for dizziness, near syncope, syncope, frequent falls, headache(s), weakness, blurry vision, double vision or lack of coordination Peter Hematologic/Lymphatic: Negative for easy bleeding or easy bruising Endo Endo: Negative for fatigue, excessive sweating or increased thirst/drinking Psych Psych: Negative for anxiety or depression Allergy Allergy/Immunology: Negative for hives, Negative for rash Cardiology Exam Const Appearance: cooperative, healthy appearing, comfortable and no acute distress Nutritional Appearance: well nourished and overweight Orientation: alert, awake and oriented x3 Head Head: normal to inspection Ears: hearing grossly normal bilaterally Nose: external nose normal Face and Sinus: face symmetric Mouth: oral mucosae normal Eyes General: appearance normal, both eyes and all related structures Eyelids: eyelids normal EOM: EOM intact bilaterally Neck Neck: normal visual inspection and no JVD Carotids: normal carotid upstroke Chest Chest inspection: normal inspection of the chest, symmetric chest movement, normal respiratory effort and cough Auscultation: Bilateral: Clear to Auscultation Cardio Rate: regular rate Rhythm: regular rhythm Heart sounds: S1 normal and S2 normal; negative rub, gallop or murmur GI GI: normal to inspection Neuro General: alert, awake, oriented x3 and CN's II-XI intact bilaterally Skin Skin: no rashes or lesions noted Extremities Pulses: Normal: Right Posterior Tibial Pulse, Left Posterior Tibial Pulse, Right Radial Pulse, Left Radial Pulse Lower Extremity Edema: None: Bilateral Psych Psychological: normal affect Assessment Plan 1. Atherosclerosis of [place] coronary artery of [place] heart without angina pectoris I25.10 PTCA/ILENE of the proximal to mid LAD 11/30/10 Plan He denies any chest, arm, jaw, or neck discomfort suggestive of angina. He does however acknowledge shortness of breath with extreme activity. This does not appear to be cardiac related, but we will consider if symptoms continue and no etiology is found to consider stress test and echocardiogram to evaluate shortness of breath further. He was asked undergo laboratory and radiological evaluation to assess for etiology of his cough including fluid overload given his shortness of breath. He return to office in approximately 3 weeks to assess his symptoms and discern if such testing is necessary. Orders Orders: Basic Metabolic Profile (BMP) Today Chest PA and Lateral Today 2. Presence of stent in coronary artery Z95.5 PTCA/ILENE of the proximal to mid LAD 11/30/10 Plan He will continue current medical therapy which includes aspirin, colestipol, and metoprolol. He was asked to currently hold his pravastatin to discern if this is contributing to cough. Orders Orders: Basic Metabolic Profile (BMP) Today Chest PA and Lateral Today 3. Essential hypertension I10 Plan Patient's blood pressure is well-controlled. We will continue to monitor. We will not make any medication regimen changes. Orders Orders: Basic Metabolic Profile (BMP) Today Chest PA and Lateral Today 4. Hyperlipidemia, unspecified hyperlipidemia type E78.5 Plan Lipid panel from 04/29/2020 showed Cholesterol: 127, HDL: 54, LDL: 61, and Triglycerides: 61. He will continue current statin medication, colestipol 2 g p.o. twice daily. He was asked to hold his pravastatin medication to discern if this is contributing to his cough and shortness of breath. Orders Orders: Basic Metabolic Profile (BMP) Today Chest PA and Lateral Today Plan Detail Other Orders Orders: Basic Metabolic Profile (BMP) Today R06.02 BNP,B-Type NATRIURETIC PEPTIDE Today R06.00 CBC W/Diff, Automated Today R06.00 Other Medications On Hold: pravastatin Hold Comment: 11/02/2020 ?cough 80 mg PO QHS Additional Comments Thank you for allowing us to participate in the patients plan of care, if you have any questions please do not hesitate to call. This note was generated using a voice recognition system and there may be incorrect words, spelling or punctuation that were not noted when reviewing the office note prior to saving. 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 transplanted heart: [place] heart Presence of stent in coronary artery Z95.5 Essential hypertension I10 Hyperlipidemia, unspecified hyperlipidemia type E78.5 ?Hyperlipidemia type: unspecified Coding Level of Care Code Off vis,est,level 4 Diagnoses Atherosclerosis of [place] coronary artery of [place] heart without angina pectoris I25.10 ?[place] vs. transplanted heart: [place] heart Presence of stent in coronary artery Z95.5 Essential hypertension I10 Hyperlipidemia, unspecified hyperlipidemia type E78.5 ?Hyperlipidemia type: unspecified Supplemental Info Supplemental Information Stress Test Report Date: 01-15-19 The patient exercised on a Charli protocol for 8 minutes completing Stage II and 2 minutes of Stage III achieving a peak heart rate of 134 bpm (87 % predicted maximal heart rate) with a peak blood pressure 170/78 mmHg and a peak MET capacity of 9 METs. The baseline ECG demonstrated sinus bradycardia. The peak exercise ECG demonstrated somatic/motion artifact with no obvious ECG changes. There were occasional PACs during recovery. The functional capacity was considered good. There was no complaint of chest discomfort during exercise or recovery. The examination was discontinued secondary to dyspnea. Impression: 1. Technically adequate (percent predicted maximal heart rate greater than 85%) exercise tolerance test 2. Peak exercise ECG with somatic/motion artifact with no obvious ECG changes 3. There were occasional PACs during recovery 4. Nuclear images pending Myocardial perfusion imaging study: Technique: The patient was injected with 11.7 mCi of technetium 99m Cardiolite and subsequently rest SPECT Cardiolite nuclear imaging was obtained in the horizontal long, vertical long, and short axis views. The patient exercised on a Charli protocol for 8 minutes completing Stage II and 2 minutes of Stage III achieving a peak heart rate of 134 bpm (87 % predicted maximal heart rate) with a peak blood pressure 170/78 mmHg and a peak MET capacity of 9 METs. The patient was injected with 33.9 mCi of technetium 99m Cardiolite and subsequently stress SPECT Cardiolite nuclear imaging was obtained in the horizontal long, vertical long, and short axis views. A gated Cardiolite study at peak stress was obtained. Interpretation: Rest and stress SPECT Cardiolite nuclear imaging status post realignment, normalization, and attenuation correction, demonstrates the appearance of relative uniform tracer uptake and myocardial perfusion appearing within normal limits. There is end systolic thickening and brightening. The gated Cardiolite study demonstrates myocardial thickening and inward wall motion. The reported LVEF is 67 %. Impression: 1. Rest and stress SPECT Cardiolite nuclear imaging demonstrate relative uniform tracer uptake and myocardial perfusion appearing within normal limits. 2. The gated Cardiolite study reports an LVEF of 67 % Labs LDL Cholesterol 61 mg/dL (0-130) 04/29/20 HDL Cholesterol 54 mg/dL (40-) 04/29/20 Triglycerides 61 mg/dL (-199) 04/29/20 VLDL Cholesterol 12 mg/dL (5-40) 04/29/20 Diagnostics Electrocardiogram 12/27/18 Stress Test Nuclear Medicine 01/15/19 Stress Test 01/15/19 Chest X-Ray 03/23/15 11/02/20 [id number] <Electronically signed by Janes SOTO> Date Janes SOTO Cosigner Signature: Date (if applicable) CC: Dr. Shruthi Song, DO Shruthi Song DO Work Phone: Start: 04-13-2020 End: 04-13-2020 Cardiology Visit Report Comments: See Note; NOTES: [facility] [address] [place] [address]. [address] [place] [address] OFFICE VISIT Date of Service: 04/13/20 MR#: [id number] Acct: [id number] Name: GEETHA GONZALEZ Rep #: [id number] : 1950 Provider: Dr. Demetri akers MD Age/Sex: 69/M Location: [facility] [place] Status: Signed HPI [facility] History of Present Illness Details: This is a 69-year-old gentleman that presents here today for cardiovascular follow-up wit a history of coronary artery disease with stenting in 2010, hypertension and hyperlipidemia. Overall he states he is doing well with no ongoing issues of classic angina pectoris and there is been no overt issues of obvious CHF or pulmonary edema. There is been no near syncope or syncope. He has not had use nitroglycerin sublingual. He states secondary to the coronavirus pandemic he has not been in to see his PCP and have his lipid labs performed. He is undergone previous noninvasive studies in 2019 with an exercise tolerance test/imaging study. The results are noted below. 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 Accompanied by: Self Allergies No Known Allergies Allergy (Verified 04/13/20 14:54) Medications Amitriptyline HCl 25 mg PO QHS 12/24/15 [History Confirmed 04/13/20] Aspirin [Aspirin, Baby] 81 mg PO DAILY@0800 12/24/15 [History Confirmed 04/13/20] Metoprolol(XL)Succ [Toprol Xl (Beta Luh)] 25 mg PO DAILY 12/24/15 [History Confirmed 04/13/20] Multivitamins,Therapeutic [Multivitamin] 1 tab PO DAILY 12/24/15 [History Confirmed 04/13/20] Pravastatin [Pravachol] 80 mg PO QHS 12/24/15 [History Confirmed 04/13/20] nitroglycerin 0.4 mg sublingual tablet 0.4 mg SUBLINGUAL Q5-15M PRN 07/11/17 [History Confirmed 04/13/20] colestipol 1 gram tablet 2 g PO BID #120 tab 07/15/19 [Rx Confirmed 04/13/20] levothyroxine 100 mcg capsule 112 mcg PO QDAY cap 07/15/19 [History Confirmed 04/13/20] [facility] Medical History Essential hypertension (Chronic) Long-term use of high-risk medication (Chronic) Atherosclerotic heart disease of [place] coronary artery without angina pectoris (Chronic) Palpitations (Acute) Chest pain (Acute) Hypothyroidism (Chronic) Hyperlipidemia (Chronic) Osteoarthritis (Acute) TIA (transient ischemic attack) (Acute) History of DVT (deep vein thrombosis) (Resolved) Hypertension (Inactive) Surgical History Presence of stent in coronary artery (Chronic 11/30/10) Postsurgical percutaneous transluminal coronary angioplasty (PTCA) status (Chronic) H/O bilateral hip replacements (Resolved) History of cardiac catheterization (Resolved) History of hernia repair (Resolved) History of sinus surgery (Resolved) Family History Father Atrial fibrillation Brother Myocardial infarction, Onset Age: 59 Social History (Updated 04/13/20 @ 15:[address] Demetri Valverde MD) Smoking Status: Never smoker alcohol intake: current details: rare substance use type: does not use ROS Const Const: Negative for fatigue, weakness, frequent falls, excessive sweating, weight gain or weight loss Eyes Eyes: Negative for transient loss of vision, blurry vision or change in vision ENT ENT: Negative for dizziness or balance problems Cardio Chest Pain: Yes (continues with ) Character: dull Onset: at rest Location: left chest Duration: minutes (20) Relieving: rest Palpitations: No Edema: None Muscle aches with walking: None Resp Respiratory: Positive for Cough (dry); negative for SOB with activity or SOB at rest GI GI: Negative vomiting or vomiting blood/hematemesis : Negative for hematuria Musc Musc: Negative for muscle aches/ myalgia, muscle weakness, joint pain or balance problems Skin Skin: Negative non-healing lesions or rash Neuro Neuro: Negative for dizziness, lightheadedness, orthostatic symptoms, frequent falls, weakness or blurry vision Peter Hematologic/Lymphatic: Negative for easy bleeding Endo Endo: Negative for fatigue or excessive sweating Psych Psych: Negative for anxiety or depression Allergy Allergy/Immunology: Negative for hives, Negative for rash Cardiology Exam Const Appearance: cooperative, healthy appearing, comfortable, no acute distress, well developed and well groomed Nutritional Appearance: average body habitus Orientation: alert, awake and oriented x3 Head Head: normal to inspection Ears: hearing grossly normal bilaterally Nose: external nose normal Eyes Eyelids: eyelids normal Conjunctivae: conjunctivae normal Pupils: PERRL EOM: EOM intact bilaterally Neck Neck: normal visual inspection and full ROM Carotids: normal carotid upstroke Chest Chest inspection: normal inspection of the chest, symmetric chest movement and normal respiratory effort Auscultation: Bilateral: Clear to Auscultation Cardio Palpation: normal PMI Rate: regular rate Rhythm: regular rhythm Heart sounds: S1 normal and S2 normal GI GI: normal to inspection, soft and bowel sounds present Neuro General: alert, awake, oriented x3, gait normal, moves all extremities, no focal sensory deficit and no focal motor deficits Skin Skin: no rashes or lesions noted Extremities Pulses: Normal: Right Radial Pulse, Left Radial Pulse Lower Extremity Edema: None: Bilateral Psych Psychological: normal affect Assessment Plan 1. Atherosclerosis of [place] coronary artery of [place] heart without angina pectoris I25.10 PTCA/ILENE of the proximal to mid LAD 11/30/10 Plan At the present time he appears to be doing well with no acute symptoms or adverse events. He will continue his current medical management and follow-up. 2. Presence of stent in coronary artery Z95.5 PTCA/ILENE of the proximal to mid LAD 11/30/10 Plan His revascularization history was reviewed with him. He appears to be doing well overall. He will continue medical therapy and follow-up. 3. Hyperlipidemia, unspecified hyperlipidemia type E78.5 Plan He will be having future fasting lipid hepatic profile. 4. Essential hypertension I10 Plan His blood pressure appears to be well controlled at this time. He will continue medical therapy. 5. Chest pain, unspecified type R07.9 Plan He has had a history of chronic underlying chest discomfort. He has not had no significant change based on history or examination. He is undergone noninvasive study in 2019 as noted. At the moment there appears to be no significant changes and thus it does not appear he requires additional evaluation or care at this time. Plan Detail Other Orders Orders: Lipid Profile Today E78.00 Liver Profile Today E78.00 Additional Comments He will be scheduled for follow-up visit in 2020 after he returns from spending the winter in [place]. Thank you for allowing me to participate in the care of your patient. Please don't hesitate to call if any issues arise. This note was generated using a voice recognition system and there may be incorrect words, spelling or punctuation that were not noted when reviewing the office note prior to saving. Follow Up 6 Months (6- 9 months) Coding Level of Care Code Off vis,est,level 4 Diagnoses Atherosclerosis of [place] coronary artery of [place] heart without angina pectoris I25.10 ?[place] vs. transplanted heart: [place] heart Presence of stent in coronary artery Z95.5 Hyperlipidemia, unspecified hyperlipidemia type E78.5 ?Hyperlipidemia type: unspecified Essential hypertension I10 Chest pain, unspecified type R07.9 ?Chest pain type: unspecified Coding Level of Care Code Off vis,est,level 4 Diagnoses Atherosclerosis of [place] coronary artery of [place] heart without angina pectoris I25.10 ?[place] vs. transplanted heart: [place] heart Presence of stent in coronary artery Z95.5 Hyperlipidemia, unspecified hyperlipidemia type E78.5 ?Hyperlipidemia type: unspecified Essential hypertension I10 Chest pain, unspecified type R07.9 ?Chest pain type: unspecified Supplemental Info Supplemental Information Stress Test Report Date: 01-15-19 The patient exercised on a Charli protocol for 8 minutes completing Stage II and 2 minutes of Stage III achieving a peak heart rate of 134 bpm (87 % predicted maximal heart rate) with a peak blood pressure 170/78 mmHg and a peak MET capacity of 9 METs. The baseline ECG demonstrated sinus bradycardia. The peak exercise ECG demonstrated somatic/motion artifact with no obvious ECG changes. There were occasional PACs during recovery. The functional capacity was considered good. There was no complaint of chest discomfort during exercise or recovery. The examination was discontinued secondary to dyspnea. Impression: 1. Technically adequate (percent predicted maximal heart rate greater than 85%) exercise tolerance test 2. Peak exercise ECG with somatic/motion artifact with no obvious ECG changes 3. There were occasional PACs during recovery 4. Nuclear images pending Myocardial perfusion imaging study: Technique: The patient was injected with 11.7 mCi of technetium 99m Cardiolite and subsequently rest SPECT Cardiolite nuclear imaging was obtained in the horizontal long, vertical long, and short axis views. The patient exercised on a Charli protocol for 8 minutes completing Stage II and 2 minutes of Stage III achieving a peak heart rate of 134 bpm (87 % predicted maximal heart rate) with a peak blood pressure 170/78 mmHg and a peak MET capacity of 9 METs. The patient was injected with 33.9 mCi of technetium 99m Cardiolite and subsequently stress SPECT Cardiolite nuclear imaging was obtained in the horizontal long, vertical long, and short axis views. A gated Cardiolite study at peak stress was obtained. Interpretation: Rest and stress SPECT Cardiolite nuclear imaging status post realignment, normalization, and attenuation correction, demonstrates the appearance of relative uniform tracer uptake and myocardial perfusion appearing within normal limits. There is end systolic thickening and brightening. The gated Cardiolite study demonstrates myocardial thickening and inward wall motion. The reported LVEF is 67 %. Impression: 1. Rest and stress SPECT Cardiolite nuclear imaging demonstrate relative uniform tracer uptake and myocardial perfusion appearing within normal limits. 2. The gated Cardiolite study reports an LVEF of 67 % Labs LDL Cholesterol 76 mg/dL (0-130) 12/24/18 HDL Cholesterol 55 mg/dL (40-) 12/24/18 Triglycerides 86 mg/dL (-199) 12/24/18 VLDL Cholesterol 17 mg/dL (5-40) 12/24/18 Diagnostics Electrocardiogram 12/27/18 Stress Test Nuclear Medicine 01/15/19 Stress Test 01/15/19 Chest X-Ray 03/23/15 04/13/20 1526 <Electronically signed by Demetri Valverde MD> Date Demetri Valverde MD Cosigner Signature: Date (if applicable) CC: Dr. Shruthi Song, DO Shruthi Song Start: 07-15-2019 End: 07-15-2019 Cardiology Visit Report Comments: See Note; NOTES: [facility] [address] [place] [address] OFFICE VISIT Date of Service: 07/15/19 MR#: [id number] Acct: [id number] Name: GEETHA GONZALEZ Rep #: [id number] : 1950 Provider: Annmarie Huerta Age/Sex: 69/M Location: [facility] Status: Signed [facility] History of Present Illness Details: This is a 69-year-old gentleman that presents here today for cardiovascular follow-up. He does have a history of coronary artery disease with stenting in 2010, hypertension and hyperlipidemia. From a cardiac standpoint, patient is doing well. He does occasionally have atypical short lasting chest pain at rest. This occurs approx once a week. This has been going on for at least one year. His exercise tolerance is stable for his age. 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 He is leaving for [employer] for a few months. He does not have any worsening symptoms of shortness of breath. He denies any PND. He does not have any orthopnea. He does not have any symptoms of congestive heart failure. He does not have any palpitations that he is aware of. He does occasionally have positional dizziness. He does not have any near-syncope or syncope. He does not have any lower extremity edema. He does not have any symptoms of claudication. 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 Accompanied by: none Is patient in pain?: No Allergies No Known Allergies Allergy (Verified 07/15/19 14:36) Medications Amitriptyline HCl 25 mg PO QHS 12/24/15 [History Confirmed 07/15/19] Aspirin [Aspirin, Baby] 81 mg PO DAILY@0800 12/24/15 [History Confirmed 07/15/19] Metoprolol(XL)Succ [Toprol Xl (Beta Luh)] 25 mg PO DAILY 12/24/15 [History Confirmed 07/15/19] Multivitamins,Therapeutic [Multivitamin] 1 tab PO DAILY 12/24/15 [History Confirmed 07/15/19] Pravastatin [Pravachol] 80 mg PO QHS 12/24/15 [History Confirmed 07/15/19] nitroglycerin 0.4 mg sublingual tablet 0.4 mg SUBLINGUAL Q5-15M PRN 07/11/17 [History Confirmed 07/15/19] colestipol 1 gram tablet 2 g PO BID #120 tab 07/15/19 [Rx Confirmed 07/15/19] levothyroxine 100 mcg capsule 112 mcg PO QDAY cap 07/15/19 [History] [facility] Medical History Essential hypertension (Chronic) Long-term use of high-risk medication (Chronic) Atherosclerotic heart disease of [place] coronary artery without angina pectoris (Chronic) Palpitations (Acute) Chest pain (Acute) Hypothyroidism (Chronic) Hyperlipidemia (Chronic) Osteoarthritis (Acute) TIA (transient ischemic attack) (Acute) History of DVT (deep vein thrombosis) (Resolved) Hypertension (Inactive) Surgical History Presence of stent in coronary artery (Chronic 11/30/10) Postsurgical percutaneous transluminal coronary angioplasty (PTCA) status (Chronic) H/O bilateral hip replacements (Resolved) History of cardiac catheterization (Resolved) History of hernia repair (Resolved) History of sinus surgery (Resolved) Family History Father Atrial fibrillation Brother Myocardial infarction, Onset Age: 59 Social History (Updated 07/15/19 @ 15:05 by GENEVA Muro) Smoking Status: Never smoker alcohol intake: current details: rare substance use type: does not use ROS Const Const: Negative for fatigue, weakness, fever(s) or headache(s) Eyes Eyes: Negative for blind spots, loss of peripheral vision or transient loss of vision ENT ENT: Positive for dizziness; negative for headache(s), tinnitus or Nosebleed/epistaxis Cardio Chest Pain: Yes Palpitations: No Edema: None Muscle aches with walking: None Resp Respiratory: Negative for SOB with activity, SOB at rest, SOB orthopnea\SOB lying down or Cough GI GI: Negative nausea, vomiting, heartburn or vomiting blood/hematemesis : Negative for hematuria Musc Musc: Negative for muscle aches/ myalgia Neuro Neuro: Positive for dizziness and lightheadedness; negative for near syncope, syncope, orthostatic symptoms, headache(s) or weakness Peter Hematologic/Lymphatic: Negative for easy bleeding Endo Endo: Negative for fatigue Cardiology Exam Const Appearance: cooperative, healthy appearing, comfortable, no acute distress, well developed and well groomed Nutritional Appearance: average body habitus Orientation: alert, awake and oriented x3 Head Head: normal to inspection Ears: hearing grossly normal bilaterally Nose: external nose normal Mouth: oral mucosae normal Teeth and gingiva: dentition normal Eyes Eyelids: eyelids normal Conjunctivae: conjunctivae normal Pupils: PERRL EOM: EOM intact bilaterally Neck Neck: normal visual inspection and full ROM Carotids: normal carotid upstroke Chest Chest inspection: normal inspection of the chest, symmetric chest movement and normal respiratory effort Auscultation: Bilateral: Clear to Auscultation Cardio Palpation: normal PMI Rate: regular rate Rhythm: regular rhythm Heart sounds: S1 normal and S2 normal GI GI: normal to inspection, soft and bowel sounds present Neuro General: alert, awake, oriented x3, gait normal, moves all extremities, no focal sensory deficit and no focal motor deficits Skin Skin: no rashes or lesions noted Extremities Pulses: Normal: Right Radial Pulse, Left Radial Pulse Lower Extremity Edema: None: Bilateral Psych Psychological: normal affect Assessment AND Plan 1. Atherosclerosis of [place] coronary artery of [place] heart without angina pectoris I25.10 PTCA/ILENE of the proximal to mid LAD 11/30/10 Plan Stable, from a cardiac standpoint patient does not have any symptoms of angina. We recommend that they continue with current aggressive medical management and risk factor modification. 2. Essential hypertension I10 Plan Blood pressure is well controlled on current medications, we do not recommend any changes at this time. 3. Hyperlipidemia, unspecified hyperlipidemia type E78.5 Plan Recent lipid profile demonstrates total cholesterol 144, HDL 55, LDL 76. Patient will continue with current medical management. Plan Detail Other Medications Refilled: Follow Up 6 Months (PFM) Coding Level of Care Code Off vis,est,level 3 Diagnoses Atherosclerosis of [place] coronary artery of [place] heart without angina pectoris I25.10 [place] vs. transplanted heart: [place] heart Essential hypertension I10 Hyperlipidemia, unspecified hyperlipidemia type E78.5 Hyperlipidemia type: unspecified Coding Level of Care Code Off vis,est,level 3 Diagnoses Atherosclerosis of [place] coronary artery of [place] heart without angina pectoris I25.10 [place] vs. transplanted heart: [place] heart Essential hypertension I10 Hyperlipidemia, unspecified hyperlipidemia type E78.5 Hyperlipidemia type: unspecified Supplemental Info Supplemental Information Stress Test Report Date: 01-15-19 The patient exercised on a Charli protocol for 8 minutes completing Stage II and 2 minutes of Stage III achieving a peak heart rate of 134 bpm (87 % predicted maximal heart rate) with a peak blood pressure 170/78 mmHg and a peak MET capacity of 9 METs. The baseline ECG demonstrated sinus bradycardia. The peak exercise ECG demonstrated somatic/motion artifact with no obvious ECG changes. There were occasional PACs during recovery. The functional capacity was considered good. There was no complaint of chest discomfort during exercise or recovery. The examination was discontinued secondary to dyspnea. Impression: 1. Technically adequate (percent predicted maximal heart rate greater than 85%) exercise tolerance test 2. Peak exercise ECG with somatic/motion artifact with no obvious ECG changes 3. There were occasional PACs during recovery 4. Nuclear images pending Myocardial perfusion imaging study: Technique: The patient was injected with 11.7 mCi of technetium 99m Cardiolite and subsequently rest SPECT Cardiolite nuclear imaging was obtained in the horizontal long, vertical long, and short axis views. The patient exercised on a Charli protocol for 8 minutes completing Stage II and 2 minutes of Stage III achieving a peak heart rate of 134 bpm (87 % predicted maximal heart rate) with a peak blood pressure 170/78 mmHg and a peak MET capacity of 9 METs. The patient was injected with 33.9 mCi of technetium 99m Cardiolite and subsequently stress SPECT Cardiolite nuclear imaging was obtained in the horizontal long, vertical long, and short axis views. A gated Cardiolite study at peak stress was obtained. Interpretation: Rest and stress SPECT Cardiolite nuclear imaging status post realignment, normalization, and attenuation correction, demonstrates the appearance of relative uniform tracer uptake and myocardial perfusion appearing within normal limits. There is end systolic thickening and brightening. The gated Cardiolite study demonstrates myocardial thickening and inward wall motion. The reported LVEF is 67 %. Impression: 1. Rest and stress SPECT Cardiolite nuclear imaging demonstrate relative uniform tracer uptake and myocardial perfusion appearing within normal limits. 2. The gated Cardiolite study reports an LVEF of 67 % Labs LDL Cholesterol 76 mg/dL (0-130) 12/24/18 HDL Cholesterol 55 mg/dL (40-) 12/24/18 Triglycerides 86 mg/dL (-199) 12/24/18 VLDL Cholesterol 17 mg/dL (5-40) 12/24/18 Diagnostics Electrocardiogram 12/27/18 Stress Test Nuclear Medicine 01/15/19 Stress Test 01/15/19 07/15/19 3144 <Electronically signed by Annmarie BEAN> Date Annmarie Mohan Signature: Date (if applicable) CC: Shruthi Schmid Start: 01-15-2019 End: 01-15-2019 Stress Report Comments: See Note; NOTES: [facility] [address] [place] [address] MR#: [id number] Acct: [id number] Name: GEETHA GONZALEZ Rep #: [id number] : 1950 68 From: Demetri Valverde MD Primary Care: Maribell Shruthi VARELA Status: REG CLI Referring Dr: Demetri Valverde MD Sex: M C Stress Test Report Date: 01-15-19 Procedure: Exercise tolerance test/imaging study Indications: Chest pain; CAD; PCI Consent: Per the patient Procedure: The patient exercised on a Charli protocol for 8 minutes completing Stage II and 2 minutes of Stage III achieving a peak heart rate of 134 bpm (87 % predicted maximal heart rate) with a peak blood pressure 170/78 mmHg and a peak MET capacity of 9 METs. The baseline ECG demonstrated sinus bradycardia. The peak exercise ECG demonstrated somatic/motion artifact with no obvious ECG changes. There were occasional PACs during recovery. The functional capacity was considered good. There was no complaint of chest discomfort during exercise or recovery. The examination was discontinued secondary to dyspnea. Impression: 1. Technically adequate (percent predicted maximal heart rate greater than 85%) exercise tolerance test 2. Peak exercise ECG with somatic/motion artifact with no obvious ECG changes 3. There were occasional PACs during recovery 4. Nuclear images pending Myocardial perfusion imaging study: Technique: The patient was injected with 11.7 mCi of technetium 99m Cardiolite and subsequently rest SPECT Cardiolite nuclear imaging was obtained in the horizontal long, vertical long, and short axis views. The patient exercised on a Charli protocol for 8 minutes completing Stage II and 2 minutes of Stage III achieving a peak heart rate of 134 bpm (87 % predicted maximal heart rate) with a peak blood pressure 170/78 mmHg and a peak MET capacity of 9 METs. The patient was injected with 33.9 mCi of technetium 99m Cardiolite and subsequently stress SPECT Cardiolite nuclear imaging was obtained in the horizontal long, vertical long, and short axis views. A gated Cardiolite study at peak stress was obtained. Interpretation: Rest and stress SPECT Cardiolite nuclear imaging status post realignment, normalization, and attenuation correction, demonstrates the appearance of relative uniform tracer uptake and myocardial perfusion appearing within normal limits. There is end systolic thickening and brightening. The gated Cardiolite study demonstrates myocardial thickening and inward wall motion. The reported LVEF is 67 %. Impression: 1. Rest and stress SPECT Cardiolite nuclear imaging demonstrate relative uniform tracer uptake and myocardial perfusion appearing within normal limits. 2. The gated Cardiolite study reports an LVEF of 67 %. This note was generated with [employer] software. It may contain incorrect words, spelling, and punctuation that were not noted in checking the note before signing. 01/15/19 1116 <Electronically signed by Demetri Valverde MD> Date Demetri Valverde MD CC: Shruthi Song DO; Demetri Valverde MD Date Dictated: 01/15/19 1112 Date Transcribed: 01/15/191111 Community Living Specialist: PM Signed Shruthi Song Start: 12-27-2018 End: 12-27-2018 Cardiology Visit Report Comments: See Note; NOTES: [facility] [address] [place] [address]. [address] [place] [address] OFFICE VISIT Date of Service: 12/27/18 MR#: [id number] Acct: [id number] Name: GEETHA GONZALEZ Rep #: [id number] : 1950 Provider: Demetri Valverde MD Age/Sex: 68/M Location: [facility] Status: Signed HPI [facility] History of Present Illness Details: GEETHA GONZALEZ, is a 68 M who presents to the office today for outpatient cardiovascular follow-up. Overall from a cardiac standpoint he appears to be doing well. He notes while residing in [place] during winter months when resting he felt stress and noted chest discomfort as if there was a weight on his chest. It did not radiate. It was not associated with dyspnea, nausea, or emesis. There is no diaphoresis. He did not use his nitroglycerin sublingual for this. He states when he has been back in [place] and up and active he has not necessarily noted similar type feelings. However based upon his sensation in [place] which he states was reminiscent of the feeling he had prior to his diagnosis of CAD and subsequent PCI he was concerned. There is been no issues of CHF or pulmonary edema. There is been no near syncope or syncope. He recently had lipid labs performed. His total cholesterol was noted to be 148 with an LDL of 76 and an HDL of 55 and a triglyceride level of 86. He had an ECG in the office today. He was in sinus rhythm. He had no acute ECG changes. 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 Accompanied by: Self Allergies No Known Allergies Allergy (Verified 12/27/18 11:47) Medications Amitriptyline HCl 25 mg PO QHS 12/24/15 [History Confirmed 12/27/18] Aspirin [Aspirin, Baby] 81 mg PO DAILY@0800 12/24/15 [History Confirmed 12/27/18] Metoprolol(XL)Succ [Toprol Xl (Beta Luh)] 25 mg PO DAILY 12/24/15 [History Confirmed 12/27/18] Multivitamins,Therapeutic [Multivitamin] 1 tab PO DAILY 12/24/15 [History Confirmed 12/27/18] Pravastatin [Pravachol] 80 mg PO QHS 12/24/15 [History Confirmed 12/27/18] nitroglycerin 0.4 mg sublingual tablet 0.4 mg SUBLINGUAL Q5-15M PRN 07/11/17 [History Confirmed 12/27/18] levothyroxine 100 mcg capsule 100 mcg PO QDAY cap 07/12/17 [History Confirmed 12/27/18] colestipol 1 gram tablet 2 g PO BID #120 tab 09/28/18 [Rx Confirmed 12/27/18] [facility] Medical History Essential hypertension (Chronic) Long-term use of high-risk medication (Chronic) Atherosclerotic heart disease of [place] coronary artery without angina pectoris (Chronic) Palpitations (Acute) Chest pain (Acute) Hypothyroidism (Chronic) Hyperlipidemia (Chronic) Osteoarthritis (Acute) TIA (transient ischemic attack) (Acute) History of DVT (deep vein thrombosis) (Resolved) Hypertension (Inactive) Surgical History Presence of stent in coronary artery (Chronic 11/30/10) Postsurgical percutaneous transluminal coronary angioplasty (PTCA) status (Chronic) H/O bilateral hip replacements (Resolved) History of cardiac catheterization (Resolved) History of hernia repair (Resolved) History of sinus surgery (Resolved) Family History Father Atrial fibrillation Brother Myocardial infarction, Onset Age: 59 Social History Smoking Status: Never smoker alcohol intake: current details: rare substance use type: does not use ROS Const Const: Negative for fatigue, weakness, frequent falls, excessive sweating, weight gain or weight loss Eyes Eyes: Negative for transient loss of vision, blurry vision or change in vision ENT ENT: Negative for dizziness or balance problems Cardio Chest Pain: Yes (while in [place] 2 weeks ago) Character: tightness (weight on chest) Onset: at rest Location: left chest Duration: minutes (30) Relieving: rest Palpitations: Yes (x 1 episode @ night) feels like its: fast Edema: None Muscle aches with walking: None Resp Respiratory: Positive for SOB with activity (baseline) and Cough (dry); negative for SOB at rest GI GI: Negative vomiting or vomiting blood/hematemesis : Negative for hematuria Musc Musc: Negative for muscle aches/ myalgia, muscle weakness, joint pain or balance problems Skin Skin: Negative non-healing lesions or rash Neuro Neuro: Negative for dizziness, lightheadedness, orthostatic symptoms, frequent falls, weakness or blurry vision Peter Hematologic/Lymphatic: Negative for easy bleeding Endo Endo: Negative for fatigue or excessive sweating Psych Psych: Negative for anxiety or depression Allergy Allergy/Immunology: Negative for hives, Negative for rash Cardiology Exam Const Appearance: cooperative, healthy appearing, comfortable, no acute distress, well developed and well groomed Nutritional Appearance: average body habitus Orientation: alert, awake and oriented x3 Head Head: normal to inspection Ears: hearing grossly normal bilaterally Nose: external nose normal Mouth: oral mucosae normal Teeth and gingiva: dentition normal Eyes Eyelids: eyelids normal Conjunctivae: conjunctivae normal Pupils: PERRL EOM: EOM intact bilaterally Neck Neck: normal visual inspection and full ROM Carotids: normal carotid upstroke Chest Chest inspection: normal inspection of the chest, symmetric chest movement and normal respiratory effort Auscultation: Bilateral: Clear to Auscultation Cardio Palpation: normal PMI Rate: regular rate Rhythm: regular rhythm Heart sounds: S1 normal and S2 normal GI GI: normal to inspection, soft and bowel sounds present Neuro General: alert, awake, oriented x3, gait normal, moves all extremities, no focal sensory deficit and no focal motor deficits Skin Skin: no rashes or lesions noted Extremities Pulses: Normal: Right Radial Pulse, Left Radial Pulse Lower Extremity Edema: None: Bilateral Psych Psychological: normal affect Assessment AND Plan 1. Atherosclerosis of [place] coronary artery of [place] heart without angina pectoris I25.10 PTCA/ILENE of the proximal to mid LAD 11/30/10 Plan At the present time he will continue medical management. He will have a follow-up exercise tolerance test/imaging study to reassess his coronary physiology and for the need of potential further evaluation in the cardiac catheterization laboratory. Orders Orders: 2. Presence of stent in coronary artery Z95.5 PTCA/ILENE of the proximal to mid LAD 11/30/10 Plan Again he will continue risk factor modification medical management. He will proceed with evaluation as noted above. Orders Orders: 3. Hyperlipidemia, unspecified hyperlipidemia type E78.5 Plan He does have a history of hyperlipidemia. His lipid labs were checked. They appear to be under good control at this time. 4. Essential hypertension I10 Plan His blood pressure appears to be well controlled as well. He will continue his current medical management and follow-up. Plan Detail Additional Comments Thank you for allowing me to participate in the care of your patient. Please don't hesitate to call if any issues arise. This note was generated using a voice recognition system and there may be incorrect words, spelling or punctuation that were not noted when reviewing the office note prior to saving. Follow Up 6 Months (PFM) Coding Level of Care Code Off vis,est,level 4 Diagnoses Atherosclerosis of [place] coronary artery of [place] heart without angina pectoris I25.10 [place] vs. transplanted heart: [place] heart Presence of stent in coronary artery Z95.5 Hyperlipidemia, unspecified hyperlipidemia type E78.5 Hyperlipidemia type: unspecified Essential hypertension I10 Coding Level of Care Code Off vis,est,level 4 Diagnoses Atherosclerosis of [place] coronary artery of [place] heart without angina pectoris I25.10 [place] vs. transplanted heart: [place] heart Presence of stent in coronary artery Z95.5 Hyperlipidemia, unspecified hyperlipidemia type E78.5 Hyperlipidemia type: unspecified Essential hypertension I10 Supplemental Info Supplemental Information Labs LDL Cholesterol 76 mg/dL (0-130) 12/24/18 HDL Cholesterol 55 mg/dL (40-) 12/24/18 Triglycerides 86 mg/dL (-199) 12/24/18 VLDL Cholesterol 17 mg/dL (5-40) 12/24/18 Diagnostics Electrocardiogram 12/27/18 Stress Test Nuclear Medicine 03/12/15 Chest X-Ray 03/23/15 12/27/18 1236 <Electronically signed by Demetri Valverde MD> Date Demetri Valverde MD Cosigner Signature: Date (if applicable) CC: Shruthi Schmid Start: 12-27-2018 End: 12-27-2018 12 Lead EKG performed by [facility] Comments: See Note; NOTES: [facility] [address] [place] [address] 12 Lead EKG performed by [facility] 12/27/18 1149 MR#: [id number] Acct: [id number] Name: GEETHA GONZALEZ Rep #: [id number] : 1950 68 From: Demetri Valverde MD Attending Dr: Demetri Valverde MD Status: DEP AMB Ordering Dr: Demetri Valverde MD Date: 12/27/18 Location: [facility] Sex: M C Admitted: BMS/12 Lead EKG performed by [facility] ECG Report Interpretation Sinus Rhythm Electronically signed on 12/27/2018 at 18:03 by Demetri Valverde [employer] Version [id number] 12/27/18 1805 Date Demetri Valverde MD CC: Shruthi Song DO Date Dictated: 12/27/18 1149 Date Transcribed: 12/27/181148 Community Living Specialist: PM Signed Shruthi Song Start: 06-27-2018 End: 06-27-2018 Cardiology Visit Report Comments: See Note; NOTES: [facility] [address] [place] [address]. [address] [place] [address] OFFICE VISIT Date of Service: 06/27/18 MR#: [id number] Acct: [id number] Name: GEETHA GONZALEZ Rep #: [id number] : 1950 Provider: Demetri Valverde MD Age/Sex: 68/M Location: [facility] Status: Signed HPI HPI Details: GEETHA GONZALEZ, is a 68 M who presents to the office today for outpatient cardiovascular follow-up. Overall from a cardiac standpoint he appears to be doing well. He has no new acute complaints. He has not had to use nitroglycerin sublingual tablets. There is been no issues of CHF or pulmonary edema. There is been no near syncope or syncope. He does not believe he has had his lipid labs checked since June 2017. He will be spending the winter months in [place]. Intake Vital Signs06/27/18 Height 5 ft 9 in 06/27/18 Weight: 186 lb 06/27/18 Body Mass Index (BMI) 27.4 06/27/18 Blood Pressure 106/58 L Intake Visit Reasons: 6 M FU (before leaving for [place]) Allergies No Known Allergies Allergy (Verified 06/27/18 13:26) Medications Amitriptyline HCl 25 mg PO QHS 12/24/15 [History Confirmed 06/27/18] Aspirin [Aspirin, Baby] 81 mg PO DAILY@0800 12/24/15 [History Confirmed 06/27/18] Metoprolol(XL)Succ [Toprol Xl (Beta Luh)] 25 mg PO DAILY 12/24/15 [History Confirmed 06/27/18] Multivitamins,Therapeutic [Multivitamin] 1 tab PO DAILY 12/24/15 [History Confirmed 06/27/18] Pravastatin [Pravachol] 80 mg PO QHS 12/24/15 [History Confirmed 06/27/18] nitroglycerin 0.4 mg sublingual tablet 0.4 mg SUBLINGUAL Q5-15M PRN 07/11/17 [History Confirmed 06/27/18] levothyroxine 100 mcg capsule 100 mcg PO QDAY cap 07/12/17 [History Confirmed 06/27/18] colestipol 1 gram tablet 2 g PO BID #120 tab 09/25/17 [Rx Confirmed 06/27/18] [facility] Medical History Essential hypertension (Chronic) Long-term use of high-risk medication (Chronic) Atherosclerotic heart disease of [place] coronary artery without angina pectoris (Chronic) Palpitations (Acute) Chest pain (Acute) Hypothyroidism (Chronic) Hyperlipidemia (Chronic) Osteoarthritis (Acute) TIA (transient ischemic attack) (Acute) History of DVT (deep vein thrombosis) (Resolved) Hypertension (Inactive) Surgical History Presence of stent in coronary artery (Chronic 11/30/10) Postsurgical percutaneous transluminal coronary angioplasty (PTCA) status (Chronic) H/O bilateral hip replacements (Resolved) History of cardiac catheterization (Resolved) History of hernia repair (Resolved) History of sinus surgery (Resolved) Family History Father Atrial fibrillation Brother Myocardial infarction, Onset Age: 59 Social History Smoking Status: Never smoker alcohol intake: current details: rare substance use type: does not use ROS Const Const: Negative for fatigue, weakness, weight gain, weight loss, frequent falls or excessive sweating Eyes Eyes: Negative for change in vision, blurry vision or transient loss of vision ENT ENT: Negative for dizziness or balance problems Cardio Chest Pain: No Palpitations: No Edema: Bilateral (occasional) Muscle aches with walking: None Resp Respiratory: Positive for Cough (dry); negative for SOB with activity or SOB at rest GI GI: Negative vomiting or vomiting blood/hematemesis : Negative for hematuria Musc Musc: Negative for balance problems, muscle aches/ myalgia, muscle weakness or joint pain Skin Skin: Negative non-healing lesions or rash Neuro Neuro: Negative for weakness, blurry vision, dizziness, lightheadedness, frequent falls or orthostatic symptoms Peter Hematologic/Lymphatic: Negative for easy bleeding Endo Endo: Negative for fatigue or excessive sweating Psych Psych: Negative for anxiety or depression Allergy Allergy/Immunology: Negative for hives, Negative for rash Cardiology Exam Const Appearance: cooperative, healthy appearing, comfortable, no acute distress, well developed and well groomed Nutritional Appearance: average body habitus Orientation: alert, awake and oriented x3 Head Head: normal to inspection Ears: hearing grossly normal bilaterally Nose: external nose normal Mouth: oral mucosae normal Teeth and gingiva: dentition normal Eyes Eyelids: eyelids normal Conjunctivae: conjunctivae normal Pupils: PERRL EOM: EOM intact bilaterally Neck Neck: normal visual inspection and full ROM Carotids: normal carotid upstroke Chest Chest inspection: normal inspection of the chest, symmetric chest movement and normal respiratory effort Auscultation: Bilateral: Clear to Auscultation Cardio Palpation: normal PMI Rate: regular rate Rhythm: regular rhythm Heart sounds: S1 normal and S2 normal GI GI: normal to inspection, bowel sounds present and soft Neuro General: alert, awake, oriented x3, moves all extremities, gait normal, no focal sensory deficit and no focal motor deficits Skin Skin: no rashes or lesions noted Extremities Pulses: Normal: Right Radial Pulse, Left Radial Pulse Lower Extremity Edema: None: Bilateral Psych Psychological: normal affect Supplemental Info He did have a transthoracic echocardiogram performed on 12/25/2015. At that point in time his left ventricle was thought to be normal with an LVEF of 65% with mild MR and mild TR. He had a stress test performed on 03/12/2015 at [facility]. This was a pharmacologic stress nuclear imaging study. At that time there were concerns of shifting soft tissue attenuation/artifact although an area of myocardial ischemia and portions of the mid to distal anteroseptal segments could not be excluded. His gated LVEF was 54%. He subsequently underwent diagnostic cardiac catheterization at [facility] by Dr. Estuardo Mendoza on 03/24/2015. At that point in time the LAD was patent proximal 40% stenosis and with 0% in-stent restenosis, the first diagonal branch had 20% stenosis, the LCx had 40% stenosis in the first OM, and the RCA had a mid 30% stenosis. He did not require any additional revascularization therapy. His previous PCI was performed on 11/30/2010 at [facility]. According to the report at that time he had a LAD 75% stenosis that underwent FFR and subsequent PTCA/stenting procedure with a Promus drug-eluting stent. He also had a Holter monitor performed on 12/03/2010. At that time he was in sinus rhythm. He had rare PACs. He had no ventricular ectopy. Assessment AND Plan 1. Atherosclerosis of [place] coronary artery of [place] heart without angina pectoris I25.10 PTCA/ILENE of the proximal to mid LAD 11/30/10 Plan At the present time he appears to be doing well. He will continue his current medical management and follow-up. Orders Orders: 2. Presence of stent in coronary artery Z95.5 PTCA/ILENE of the proximal to mid LAD 11/30/10 Plan He does have a history of PCI as noted above. It does not appear he has a any new acute symptoms. He will continue medical therapy and follow-up. Orders Orders: 3. Hyperlipidemia, unspecified hyperlipidemia type E78.5 Plan He will continue medical management. He will have his lipid labs evaluated Orders Orders: 4. Essential hypertension I10 Plan His blood pressure appears to be under reasonably good control. He will continue medical therapy Plan Detail Additional Comments Thank you for allowing me to participate in the care of your patient. Please don't hesitate to call if any issues arise. This note was generated using a voice recognition system and there may be incorrect words, spelling or punctuation that were not noted when reviewing the office note prior to saving. Follow Up 6 Months (with PFM) Coding Level of Care Code Off vis,est,level 4 Diagnoses Atherosclerosis of [place] coronary artery of [place] heart without angina pectoris I25.10 [place] vs. transplanted heart: [place] heart Presence of stent in coronary artery Z95.5 Hyperlipidemia, unspecified hyperlipidemia type E78.5 Hyperlipidemia type: unspecified Essential hypertension I10 Coding Level of Care Code Off vis,est,level 4 Diagnoses Atherosclerosis of [place] coronary artery of [place] heart without angina pectoris I25.10 [place] vs. transplanted heart: [place] heart Presence of stent in coronary artery Z95.5 Hyperlipidemia, unspecified hyperlipidemia type E78.5 Hyperlipidemia type: unspecified Essential hypertension I10 06/27/18 1614 <Electronically signed by Demetri Valverde MD> Date Demetri Valverde MD Cosigner Signature: Date (if applicable) CC: Shruthi Schmid Start: 02-09-2018 End: 02-09-2018 L/S Spine Min 4 Views Comments: See Note; NOTES: [facility] Imaging Services [address] [place] [address] L/S Spine Min 4 Views MR#: [id number] Acct: [id number] Name: GEETHA GOZNALEZ Rep #: [id number] : 1950 M 67 From: Spencer Segovia MD PCP: Shruthi Song DO Status: REG CLI Study: L/S Spine Min 4 Views Date of Exam: 02/09/18 Exam# [id number] Ordering Dr: Shruthi Song DO STUDY: X-RAY - LUMBAR SPINE REASON FOR EXAM: Male, 67 years old. One-week history of low back pain. TECHNIQUE: 5 view(s) of the lumbar spine were obtained including oblique views. COMPARISON: None FINDINGS: Normal lumbar lordosis. There is no substantial scoliosis. There is a normal alignment of the vertebrae. Spondylosis at the L3-L4 and L4-L5 levels. Disc space narrowing at the L3-L4, L4-L5 and L5-S1 levels. Facet joint osteoarthritis. Status post bilateral total hip replacement. Degenerative changes of the sacroiliac joints. Large amount of fecal material is seen in the colon. RAD/L/S Spine Min 4 Views IMPRESSION: Degenerative changes of the spine, as detailed above. Electronically Signed: Spencer Segovia MD at 13:55 EDT Tel [phone], Service support , CC: Shruthi Song DO Community Living Specialist: Signed Shruthi Song Work Phone: Start: 12-20-2017 End: 12-20-2017 Cardiology Visit Report Comments: See Note; NOTES: [facility] [address] [place] [address] OFFICE VISIT Date of Service: 12/20/17 MR#: [id number] Acct: [id number] Name: GEETHA GONZALEZ Rep #: [id number] : 1950 Provider: Demetri Valverde MD Age/Sex: 67/M Location: [facility] [place] Status: Signed HPI HPI Details: GEETHA GONZALEZ, is a 67 M who presents to the office today for for outpatient cardiovascular follow-up of his history of underlying CAD status post LAD PCI and hyperlipidemia. Since his last visit he states overall he is done well. He has not required any additional cardiac diagnostic studies or therapeutic intervention. He has not had any concerning symptoms of chest discomfort or difficulty breathing. There has been no issues with respect to palpitations, near-syncope, or syncope. He is due to have his lipid labs checked in the near future. Intake Vital Signs12/20/17 Height 5 ft 9 in 12/20/17 Weight: 187 lb 12/20/17 Body Mass Index (BMI) 27.6 12/20/17 Blood Pressure 110/64 Intake Visit Reasons: 1 Y FU Allergies No Known Allergies Allergy (Verified 12/20/17 15:46) Medications Amitriptyline HCl 25 mg PO QHS 12/24/15 [History Confirmed 12/20/17] Aspirin [Aspirin, Baby] 81 mg PO DAILY@0800 12/24/15 [History Confirmed 12/20/17] Metoprolol(XL)Succ [Toprol Xl (Beta Luh)] 25 mg PO DAILY 12/24/15 [History Confirmed 12/20/17] Multivitamins,Therapeutic [Multivitamin] 1 tab PO DAILY 12/24/15 [History Confirmed 12/20/17] Pravastatin [Pravachol] 80 mg PO QHS 12/24/15 [History Confirmed 12/20/17] nitroglycerin 0.4 mg sublingual tablet 0.4 mg SUBLINGUAL Q5-15M PRN 07/11/17 [History Confirmed 12/20/17] levothyroxine 100 mcg capsule 100 mcg PO QDAY cap 07/12/17 [History Confirmed 12/20/17] colestipol 1 gram tablet 2 g PO BID #120 tab 09/25/17 [Rx Confirmed 12/20/17] [facility] Medical History Presence of stent in coronary artery (Chronic 11/30/10) Long-term use of high-risk medication (Chronic) Hypertension (Chronic) Atherosclerotic heart disease of [place] coronary artery without angina pectoris (Chronic) Palpitations (Acute) Chest pain (Acute) Hypothyroidism (Chronic) Hyperlipidemia (Chronic) Osteoarthritis (Acute) TIA (transient ischemic attack) (Acute) History of DVT (deep vein thrombosis) (Resolved) Surgical History Postsurgical percutaneous transluminal coronary angioplasty (PTCA) status (Chronic) H/O bilateral hip replacements (Resolved) History of cardiac catheterization (Resolved) History of hernia repair (Resolved) History of sinus surgery (Resolved) Family History Father Atrial fibrillation Brother Myocardial infarction, Onset Age: 59 Social History Smoking Status: Never smoker alcohol intake: current details: rare substance use type: does not use ROS Const Const: Negative for fatigue, weakness, weight gain, weight loss, frequent falls or excessive sweating Eyes Eyes: Negative for change in vision, blurry vision or transient loss of vision ENT ENT: Negative for dizziness or balance problems Cardio Chest Pain: No Palpitations: No Edema: None Muscle aches with walking: None Resp Respiratory: Positive for SOB with activity (increased); negative for SOB at rest Additional Details: Dry Cough GI GI: Negative vomiting or vomiting blood/hematemesis : Negative for hematuria Musc Musc: Negative for balance problems, muscle aches/ myalgia, muscle weakness or joint pain Skin Skin: Negative non-healing lesions or rash Neuro Neuro: Negative for weakness, blurry vision, dizziness, lightheadedness, frequent falls or orthostatic symptoms Peter Hematologic/Lymphatic: Negative for easy bleeding Endo Endo: Negative for fatigue or excessive sweating Psych Psych: Negative for anxiety or depression Allergy Allergy/Immunology: Negative for hives, Negative for rash Cardiology Exam Const Appearance: cooperative, healthy appearing, comfortable, no acute distress, well developed and well groomed Nutritional Appearance: average body habitus Orientation: alert, awake and oriented x3 Head Head: normal to inspection Ears: hearing grossly normal bilaterally Nose: external nose normal Mouth: oral mucosae normal Teeth and gingiva: dentition normal Eyes General: appearance normal, both eyes and all related structures Eyelids: eyelids normal Conjunctivae: conjunctivae normal Pupils: PERRL EOM: EOM intact bilaterally Neck Neck: normal visual inspection Carotids: normal carotid upstroke Chest Chest inspection: normal inspection of the chest and symmetric chest movement Auscultation: Bilateral: Clear to Auscultation Cardio Palpation: normal PMI Rate: regular rate Rhythm: regular rhythm Heart sounds: S1 normal and S2 normal GI GI: normal to inspection, bowel sounds present, soft and no hepatosplenomegaly Neuro General: alert, awake and oriented x3 Skin Skin: no rashes or lesions noted Extremities Pulses: Normal: Right Radial Pulse, Left Radial Pulse Lower Extremity Edema: None: Bilateral Psych Psychological: normal affect Supplemental Info He did have a transthoracic echocardiogram performed on 12/25/2015. At that point in time his left ventricle was thought to be normal with an LVEF of 65% with mild MR and mild TR. He had a stress test performed on 03/12/2015 at [facility]. This was a pharmacologic stress nuclear imaging study. At that time there were concerns of shifting soft tissue attenuation/artifact although an area of myocardial ischemia and portions of the mid to distal anteroseptal segments could not be excluded. His gated LVEF was 54%. He subsequently underwent diagnostic cardiac catheterization at [facility] by Dr. Estuardo Mendoza on 03/24/2015. At that point in time the LAD was patent proximal 40% stenosis and with 0% in-stent restenosis, the first diagonal branch had 20% stenosis, the LCx had 40% stenosis in the first OM, and the RCA had a mid 30% stenosis. He did not require any additional revascularization therapy. His previous PCI was performed on 11/30/2010 at [facility]. According to the report at that time he had a LAD 75% stenosis that underwent FFR and subsequent PTCA/stenting procedure with a Promus drug-eluting stent. He also had a Holter monitor performed on 12/03/2010. At that time he was in sinus rhythm. He had rare PACs. He had no ventricular ectopy. Assessment AND Plan 1. Atherosclerosis of [place] coronary artery of [place] heart without angina pectoris I25.10 PTCA/ILENE of the proximal to mid LAD 11/30/10 Plan At the present time he appears to be doing well. He will continue risk factor modification and medical management. It was not felt he required further cardiac diagnostic studies or therapeutic intervention. 2. Presence of stent in coronary artery Z95.5 PTCA/ILENE of the proximal to mid LAD 11/30/10 Plan His previous PCI procedure is as noted above. His subsequent follow-up noninvasive and invasive studies are as noted above. 3. Hyperlipidemia, unspecified hyperlipidemia type E78.5 Plan He is due to have his lipids checked in the near future. In the interim he will continue his current medical management. 4. Essential hypertension I10 Plan His blood pressure appears to be well-controlled. He will continue medical therapy. 5. Long-term use of high-risk medication Z79.899 Plan Again based upon his medications he will have upcoming laboratory studies. Plan Detail Additional Comments He will be scheduled for an outpatient visit in approximately 6 months prior to leaving to spend the winter in [place] unless needed sooner. Thank you for allowing me to participate in the care of your patient. Please don't hesitate to call if any issues arise. This note was generated using a voice recognition system and there may be incorrect words, spelling or punctuation that were not noted when reviewing the office note prior to saving. Follow Up 6 Months (PFM: Before leaving for [place]) Coding Level of Care Code Off vis,est,level 3 Diagnoses Atherosclerosis of [place] coronary artery of [place] heart without angina pectoris I25.10 [place] vs. transplanted heart: [place] heart Presence of stent in coronary artery Z95.5 Hyperlipidemia, unspecified hyperlipidemia type E78.5 Hyperlipidemia type: unspecified Essential hypertension I10 Hypertension type: essential hypertension Long-term use of high-risk medication Z79.899 Coding Level of Care Code Off vis,est,level 3 Diagnoses Atherosclerosis of [place] coronary artery of [place] heart without angina pectoris I25.10 [place] vs. transplanted heart: [place] heart Presence of stent in coronary artery Z95.5 Hyperlipidemia, unspecified hyperlipidemia type E78.5 Hyperlipidemia type: unspecified Essential hypertension I10 Hypertension type: essential hypertension Long-term use of high-risk medication Z79.899 12/20/17 1628 <Electronically signed by Demetri Valverde MD> Date Demetri Valverde MD Cosigner Signature: Date (if applicable) CC: Shruthi Schmid Start: 11-24-2017 End: 11-24-2017 Sinus/Facial Bone Comments: See Note; NOTES: [facility] Imaging Services [address] [place] [id number] Sinus/Facial Bone MR#: [id number] Acct: [id number] Name: GEETHA GONZALEZ Rep #: [id number] : 1950 67 From: Art Mccullough MD PCP: Shruthi Song DO Status: REG CLI Study: Sinus/Facial Bone Date of Exam: 11/24/17 Exam# [id number] Ordering Dr: Shruthi Song DO STUDY: CT MAXILLOFACIAL SINUSES REASON FOR EXAM: Male, 67 years old. Sinusitis RADIATION DOSAGE (If Supplied By Facility): CTDIvol = ( 29.38 ) mGy, DLP = ( 407.88 ) mGycm TECHNIQUE: The patient was scanned in a multi detector CT scanner. High resolution axial imaging was performed without the administration of intravenous contrast material. Sagittal and coronal images were reconstructed. Individualized dose optimization techniques were used for this CT. COMPARISON: None. FINDINGS: FRONTAL SINUSES: Mucosal thickening of the inferior frontal sinuses extending into the frontal recesses. ETHMOIDAL SINUSES: Mild ethmoid mucosal thickening MAXILLARY SINUSES: Mucosal thickening in the right and left maxillary sinuses. SPHENOIDAL SINUSES: Mild mucosal thickening. There is patency of the bilateral maxillary infundibuli with normal uncinate processes, ethmoid bullae, and hiatus semilunaris. There is paradoxical curvature of the right middle turbinate. Normal bilateral inferior turbinates. There is a right sided nasal septal deviation, but without a nasal septal spur. There is patency of the bilateral nasal airways. The visualized osseous structures are normal. The visualized bilateral orbital contents are normal. CT/Sinus/Facial Bone IMPRESSION: Pansinusitis with mild mucosal thickening. Opacification of frontal recesses. The ostiomeatal units are patent. Nasal septal deviation. Electronically Signed: Art Mccullough MD at 7:48 EDT , Service support , CC: Shruthi Song DO Community Living Specialist: Signed Shruthi Song Work Phone: Start: 07-12-2017 End: 07-12-2017 Cardiology Visit Report Comments: See Note; NOTES: [facility] [place] [address] OFFICE VISIT Date of Service: 07/12/17 MR#: [id number] Acct: [id number] Name: GEETHA GONZALEZ Rep #: [id number] : 1950 Provider: Demetri Valverde MD Age/Sex: 67/M Location: [facility] [place] Status: Signed HPI 6 M: Details: GEETHA GONZALEZ, is a 67 M who presents to the office today for for outpatient cardiovascular follow-up. Overall he states he is doing well from a cardiac standpoint. He is not complaining of any resting or exertional chest discomfort. There is been no issues with respect to orthopnea, PND, peripheral pitting edema. There has been no near syncope or syncope. He had lipid labs performed recently. They appeared to be under good control. Intake Vital Signs07/12/17 Height 5 ft 9 in 07/12/17 Weight: 184 lb 9 oz 07/12/17 Body Mass Index (BMI) 27.2 07/12/17 Blood Pressure 116/68 Intake Visit Reasons: 6 M Allergies No Known Allergies Allergy (Verified 12/24/15 14:41) Medications Amitriptyline HCl 25 mg PO QHS 12/24/15 [History Confirmed 07/12/17] Aspirin [Aspirin, Baby] 81 mg PO DAILY@0800 12/24/15 [History Confirmed 07/12/17] Colestipol Tablet [Colestid Tablet] 2 tab PO BID 12/24/15 [History Confirmed 07/12/17] Metoprolol(XL)Succ [Toprol Xl (Beta Luh)] 25 mg PO DAILY 12/24/15 [History Confirmed 07/12/17] Multivitamins,Therapeutic [Multivitamin] 1 tab PO DAILY 12/24/15 [History Confirmed 07/12/17] Pravastatin [Pravachol] 80 mg PO QHS 12/24/15 [History Confirmed 07/12/17] nitroglycerin 0.4 mg sublingual tablet 0.4 mg SUBLINGUAL Q5-15M PRN 07/11/17 [History Confirmed 07/11/17] levothyroxine 100 mcg capsule 100 mcg PO QDAY cap 07/12/17 [History Confirmed 07/12/17] [facility] Medical History Hypertension (Chronic) Atherosclerotic heart disease of [place] coronary artery without angina pectoris (Chronic) Palpitations (Acute) Chest pain (Acute) Coronary artery disease (Chronic) Hypothyroidism (Chronic) Hyperlipidemia (Chronic) TIA (transient ischemic attack) (Acute) Osteoarthritis (Acute) History of DVT (deep vein thrombosis) (Resolved) Surgical History H/O bilateral hip replacements (Resolved) History of cardiac catheterization (Resolved) History of hernia repair (Resolved) History of sinus surgery (Resolved) Family History Father Atrial fibrillation Brother Myocardial infarction, Onset Age: 59 Social History Smoking Status: Never smoker alcohol intake: current details: rare ROS Const Const: Negative for fatigue, weakness, weight gain, weight loss, frequent falls or excessive sweating Eyes Eyes: Negative for change in vision, blurry vision or transient loss of vision ENT ENT: Negative for dizziness, Negative for balance problems Cardio Chest Pain: No Palpitations: Positive for Yes Palpitations: fast (occasional) Edema: None Muscle aches with walking: None Resp Respiratory: Positive for SOB with activity (breathing at baseline) and other; negative for SOB at rest Additional Details: Patient reports a dry cough GI GI: Negative vomiting or vomiting blood/hematemesis : Negative for hematuria Musc Musc: Negative for balance problems, muscle aches/ myalgia, muscle weakness or joint pain Skin Skin: Negative non-healing lesions or rash Neuro Neuro: Negative for weakness, Negative for blurry vision, Negative for dizziness, Negative for lightheadedness, Negative for frequent falls, Negative for orthostatic symptoms Peter Hematologic/Lymphatic: Negative for easy bleeding Endo Endo: Negative for fatigue or excessive sweating Psych Psych: Negative for anxiety or depression Allergy Allergy/Immunology: Negative for hives, Negative for rash Cardiology Exam Const Appearance: cooperative, healthy appearing, comfortable, no acute distress, well developed and well groomed Nutritional Appearance: average body habitus Orientation: alert, awake and oriented x3 Head Head: normal to inspection Ears: hearing grossly normal bilaterally Nose: external nose normal Mouth: oral mucosae normal Teeth and gingiva: dentition normal Eyes General: appearance normal, both eyes and all related structures Eyelids: eyelids normal Conjunctivae: conjunctivae normal Pupils: PERRL EOM: EOM intact bilaterally Neck Neck: normal visual inspection Carotids: normal carotid upstroke Chest Chest inspection: normal inspection of the chest and symmetric chest movement Auscultation: Bilateral: Clear to Auscultation Cardio Palpation: normal PMI Rate: regular rate Rhythm: regular rhythm Heart sounds: S1 normal and S2 normal GI GI: normal to inspection, bowel sounds present, soft and no hepatosplenomegaly Neuro General: alert, awake and oriented x3 Skin Skin: no rashes or lesions noted Extremities Pulses: Normal: Right Radial Pulse, Left Radial Pulse Lower Extremity Edema: None: Bilateral Psych Psychological: normal affect Assessment AND Plan 1. Atherosclerosis of [place] coronary artery of [place] heart without angina pectoris I25.10; I25.10; I25.10 Plan At the present time he appears to be doing well with respect to his underlying history of CAD. He is not having any ongoing symptoms of angina pectoris. He will continue risk factor modification and medical management. 2. Hyperlipidemia, unspecified hyperlipidemia type E78.5; E78.5; E78.5 Plan His lipids were reviewed. They appear to be under good control. He will continue medical therapy and follow-up. 3. Essential hypertension I10; I10; I10 Plan His blood pressure was reviewed. It appears to be under good control. Again he will continue medical management and follow-up. 4. Palpitations R00.2 Plan He denies any issues of ongoing palpitations or rapid heart rates at this time. There has been no near syncope or syncope. He will continue his current therapy and follow-up. Plan Detail Additional Comments The above was discussed with the patient. He was agreeable to this approach. Thank you for allowing me to participate in the care of your patient. Please don't hesitate to call if any issues arise This note was generated using a voice recognition system and there may be incorrect words, spelling or punctuation that were not noted when reviewing the office note prior to saving. 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) 07/12/17 7634 <Electronically signed by Demetri Valverde MD> Date Demetri Valverde MD Cosigner Signature: Date (if applicable) CC: Shruthi Schmid Start: 12-29-2016 End: 12-29-2016 Dietary management education, guidance, and counseling Margaret Chavez Start: 12-29-2016 End: 12-29-2016 Documentation of current medications Margaret Kathy Start: 12-29-2016 End: 12-29-2016 Electrocardiogram, complete Demetri Valverde MD Start: 12-29-2016 End: 12-29-2016 Follow Up Appt 6 months Demetri Valverde MD Start: 12-29-2016 End: 12-29-2016 PFM Demetri Valverde MD Start: 12-19-2016 End: 12-19-2016 *Hepatic Function Panel Demetri Valverde MD Start: 12-19-2016 End: 12-19-2016 Lipid panel [AGGREGATE] Demetri Valverde MD Start: 07-04-2016 End: 07-04-2016 Dietary management education, guidance, and counseling Christina Zaman Start: 07-04-2016 End: 07-04-2016 Documentation of current medications Christina Zaman Start: 07-04-2016 End: 12-30-2016 *Hepatic Function Panel Demetri Valverde MD Start: 07-04-2016 End: 07-04-2016 Follow Up Appt 6 months Demetri Valverde MD Start: 07-04-2016 End: 12-30-2016 Lipid panel [AGGREGATE] Demetri Valverde MD Start: 07-04-2016 End: 07-04-2016 PFM Demetri Valverde MD Start: 06-24-2016 End: 07-01-2016 *Hepatic Function Panel Demetri Valverde MD Start: 06-24-2016 End: 07-01-2016 Lipid panel [AGGREGATE] Demetri Valverde MD Start: 12-24-2015 End: 12-24-2015 History and Physical Exam Comments: See Note; NOTES: [facility] Medical Records Department [address] [place] [address] History and Physical 06/02/16 1736 MR#: [id number] Acct: [id number] Name: GEETHA GONZALEZ Rep #: [id number] : 1950 65 From: Carolyn Mae MD PCP: Suman Gaytan MD Status: REG ER Y Location: ED Problem List (1) TIA (transient ischemic attack) Status: Acute (2) Coronary artery disease Status: Chronic Comment: Status post stents (3) Hyperlipidemia Status: Chronic (4) Hypothyroidism Status: Chronic History of Present Illness Date of Admission: 12/24/15 Chief Complaint: Left side facial numbness and tingling. The patient is a 65 year old M with past medical history as mentioned above presented to the emergency room because of left side facial numbness and tingling. His symptoms started this morning when he was at work with numbness and tingling on the left side of his face, around his left eye and left cheek but not around his mouth, lasted for about couple of hours, associated with headache and dizziness. After couple of hours, symptoms improved. He felt that his left arm is also fatigued and he attributed this to being left-handed and he was working. He had a similar episode of this numbness and tingling on the left side of his face weeks ago. He denied slurred speech or blurred vision. Denied significant focal arm or leg weakness. Denied syncope or presyncope. Denied chest pain or shortness of breath. In the emergency room, he was found to have stable vital signs. His routine blood work was unremarkable. EKG showed normal sinus rhythm without acute changes. CT scan brain showed no acute infarction or hemorrhage. At this time, his NIH stroke scale is 0. He is being admitted for transient ischemic attack. Past Medical History Past Medical History (Chronic Problems): Chronic Problems Coronary artery disease (Chronic) Status post stents Hyperlipidemia (Chronic) Hypothyroidism (Chronic) Allergies No Known Allergies Allergy (Verified 12/24/15 14:41) Home Medications: Ambulatory Orders Medication Instructions Recorded Amitriptyline HCl 25 mg PO QHS 12/24/15 Clopidogrel Bisulfate [Plavix] 75 mg PO DAILY 12/24/15 Colestipol Tablet [Colestid Tablet] 1 gm PO DAILY 12/24/15 Levothyroxine [Synthroid] 125 mcg PO DAILY 12/24/15 Metoprolol(XL)Succ [Toprol Xl 25 mg PO DAILY 12/24/15 (Beta Luh)] Pravastatin [Pravachol] 80 mg PO DAILY 12/24/15 PredniSONE 30 mg PO DAILY 12/24/15 Surgical History: herniorrhaphy, total hip arthroplasty, - - Sinus surgery. Psychiatric History: No pertinent psych hx Lives: Spouse/ Significant Other Smoking Status: Never smoker Alcohol: Occasional Drugs: None - *Family History Maternal History Items: No pertinent history Paternal History Items: No pertinent history Review of Systems Constitutional: Denies: Anorexia, Chills, Fever, Weakness Eyes: Denies: Blurred vision, Double vision, Drainage, Redness HEENT: Denies: Difficulty Hearing, Ear Pain, Eye Pain, Nasal Congestion, Sore Throat Cardiovascular: Denies: Chest Pain, Claudication, Chest Pressure, Edema, Heaviness, Palpitations, Paroxysmal Noc. Dyspnea, Syncope Respiratory: Denies: Cough, Pleuritic Pain, Shortness of Breath, Sputum production, Wheezing Gastrointestinal: Denies: Abdominal Pain, Constipation, Diarrhea, Nausea, Vomiting Genitourinary: Denies: Dysuria, Frequency, Hematuria Musculoskeletal: Denies: Arm Pain, Back Pain, Foot Pain Neurological: Reports: Numbness, Tingling. Denies: Balance problems, Blurred vision, Double vision, Change in Speech, Slurred speech, Confusion, Focal weakness, Headaches, Incoordination, Seizures Psychiatric: Denies: Anxiety, Depression Endocrine: Denies: Change in Body Habitus, Polydipsia VTE Information - Inpt Only VTE Present on Admission: No VTE Mechan Device Prophylaxis: None VTE Pharm Prophylaxis ordered?: Yes - Physical Exam General: Alert, Oriented x3, Cooperative HEENT: Atraumatic, PERRLA, EOMI Oral: Moist Mucosa, No Gingival or Mucosal Lesions/ Ulcerations Neck: Supple, No JVD, Negative Carotid Bruits, Thyroid Normal Size and Texture Lungs: Clear to auscultation, Normal air movement, No rhonchi, No wheeze, No rales Cardiovascular: Regular rate, Regular Rhythm, Normal S1, Normal S2 Abdomen: Bowel Sounds Present, Soft, Non Tender, Non-Distended, No Hepato-splenomegaly Extremities: No clubbing, No cyanosis, No edema Skin: No rashes, No breakdown Neurological: Cranial nerves II-XII grossly intact, Motor Exam 5/5 strength throughout, Sensory exam intact to light touch and pain Psych/Mental Status: Normal Affect, Appropriate Vital Signs Temp Pulse Resp BP Pulse Ox 98.0 F 58 14 123/72 99 12/24/15 14:41 12/24/15 17:00 12/24/15 17:00 12/24/15 17:00 12/24/15 17:00 Oxygen Flow Rate 2 Oxygen Delivery Method Room Air Weight: 164 lb 7.437 oz Body Mass Index (BMI) 24.3 Finger Stick Blood Glucose 92 Laboratory Tests Past 24 Hrs 12/24/15 15:10 WBC 5.6 RBC 4.61 Hgb 14.5 Hct 42.9 MCV 93.1 MCH 31.5 MCHC 33.8 RDW 12.6 RDW Differential 42.0 Plt Count 258 MPV 10.1 Immature Gran % (Auto) 0.200 Neut % (Auto) 52.1 Lymph % (Auto) 31.4 [place] % (Auto) 11.0 H Eos % (Auto) 4.8 Baso % (Auto) 0.5 Absolute Neuts (auto) 2.9 Absolute Lymphs (auto) 1.75 Total Counted Not Reportable PT 13.0 INR 1.0 APTT 31.2 Sodium 138 Potassium 3.8 Chloride 108 H Carbon Dioxide 26.0 Anion Gap 4 L BUN 16 Creatinine 1.13 Estim Creat Clear Calc 66.04 Est GFR (MDRD) Af Amer 84 Est GFR (MDRD) Non-Af 69 BUN/Creatinine Ratio 14.2 Glucose 92 Calcium 8.5 Troponin I < 0.02 TSH 4.14 H Assessment/Plan Active and Suspected Problems TIA (transient ischemic attack) (Acute) This is a 65 years old male patient admitted because of left facial paresthesia with concern of TIA. #1 left facial paresthesia/TIA: Initial CT scan brain showed no acute findings. Other workup including routine blood work, EKG was unremarkable. At this time, neurological examination is nonfocal. Blood pressure stable. Plan: Admit to PCU for observation, cardiac monitoring, NIH stroke scale, MRI brain, MRA of the head and neck, aspirin 81 mg by mouth daily, continue statins. #2 CAD status post stent: Patient denied any chest pain or shortness of breath. EKG reviewed, no acute ischemic changes. Plan: Continue aspirin, beta blockers and statins. #3 hyperlipidemia: Continue statins. #4 hypothyroidism: Continued levothyroxin. #5 DVT prophylaxis: Subcu Lovenox. This note was generated with [employer] dictation software. It may contain incorrect words, spelling, and punctuation that were not noted in checking the note before signing. 12/24/15 1742 <Electronically signed by Carolyn Mae MD> Date Carolyn Mae MD Cosigner Signature (if applicable): Date CC: Suman Gaytan MD; Carolyn Mae Signed Shruthi Song Start: 10-30-2015 End: 10-30-2015 Follow Up Appt 6 months Demetri Valverde MD Start: 10-30-2015 End: 10-30-2015 PFM Demetri Valverde MD Start: 09-14-2015 End: 10-27-2015 *Hepatic Function Panel Demetri Valverde MD Start: 09-14-2015 End: 10-27-2015 Lipid panel [AGGREGATE] Demetri Valverde MD Start: 03-23-2015 End: 03-23-2015 Chest PA and Lateral Comments: See Note; NOTES: [facility] Imaging Services [address] [place] [address] Radiology Report MR#: [id number] Acct: [id number] Name: GEETHA GONZALEZ Rep #: [id number] : 1950 M 64 From: Spencer Segovia MD PCP: Suman Gaytan MD Status: REG CLI Study: Chest PA and Lateral Date of Exam: 03/23/15 Exam# [id number] Ordering Dr: Estuardo Mendoza MD STUDY: X-RAY CHEST REASON FOR EXAM: Male, 64 years old. Coronary artery disease. TECHNIQUE: PA and lateral views of the chest. COMPARISON: Comparison is made with prior study dated November 29, 2010. FINDINGS: Hyperinflation. Scattered calcified granulomas. There is no demonstrated pleural abnormality. Normal size heart. Normal mediastinum and jeremias. Normal visualized pulmonary arteries. Normal visualized aortic arch and descending thoracic aorta. There are diffuse degenerative changes of the visualized thoracic spine. Normal visualized ribs, clavicles, and shoulders. There is no demonstrated abnormality of the visualized soft tissue structures of the upper abdomen. IMPRESSION: No acute abnormality is seen. Electronically Signed: Spencer Segovia MD at 13:54 EDT Tel [phone], Service support [phone], RAD/Chest PA and Lateral IMPRESSION: No acute abnormality is seen. Electronically Signed: Spencer Segovia MD at 13:54 EDT Tel [phone], Service support [phone], CC: Suman Gaytan MD; Estuardo Mendoza MD Community Living Specialist: Signed Shruthi Song Start: 03-23-2015 End: 03-23-2015 Nurse, Teaching, Wound Check (no charge) Estuardo Mendoza MD Work Phone: Start: 03-16-2015 End: 03-23-2015 *BMP Estuardo Mendoza MD Work Phone: Start: 03-16-2015 End: 03-23-2015 aPTT Estuardo Mendoza MD Work Phone: Start: 03-16-2015 End: 03-23-2015 CBC W Auto Differential panel - Blood Estuardo Mendoza MD Work Phone: Start: 03-16-2015 End: 03-23-2015 Coagulation factor induced.INR assay in platelet poor plasma Estuardo Mendoza MD Work Phone: Start: 03-16-2015 End: 03-23-2015 Lipid panel [AGGREGATE] Estuardo Mendoza MD Work Phone: Start: 03-12-2015 End: 03-13-2015 Nuclear Stress Test - Chemical Comments: See Note; NOTES: [facility] Imaging Services [address] [place] [address] STRESS TEST REPORT 03/12/15 0912 MR#: [id number] Acct: [id number] Name: GEETHA GONZALEZ Rep #: [id number] : 1950 64 From: Demetri Valverde MD Primary Care: Suman Gaytan MD Status: REG CLI Ordering Dr: Demetri Valverde MD Service Date: 03/12/15 Order Date: 03/12/15 Sex: M C DATE OF SERVICE: 03/12/2015 EXERCISE TOLERANCE TEST: The patient underwent pharmacologic (regadenoson) evaluation with a peak heart rate of 76 beats per minute (48% predicted maximum heart rate) and a peak blood pressure of 138/82 mmHg. The baseline ECG demonstrated sinus bradycardia. The peak pharmacologic ECG demonstrated no obvious ECG changes. There were no cardiac dysrhythmias pretest, during pharmacologic infusion, or recovery. The patient had no complaint of chest discomfort during pharmacologic infusion or recovery. The examination was discontinued secondary to completion of protocol. IMPRESSION: 1. Pharmacologic (regadenoson) evaluation. 2. Peak pharmacologic ECG with no obvious ECG changes. 3. Nuclear images pending. MYOCARDIAL PERFUSION IMAGING STUDY: TECHNIQUE: The patient was injected with 11.9 mCi of Tc99m Cardiolite and subsequently rest SPECT Cardiolite nuclear imaging was obtained in the horizontal long, vertical long and short axes views. The patient underwent pharmacologic (regadenoson) evaluation with a peak heart rate of 76 beats per minute (48% predicted maximum heart rate) and a peak blood pressure of 138/82 mmHg. The patient was injected with 34.1 mCi of Tc99m Cardiolite and subsequently stress SPECT Cardiolite nuclear imaging was obtained in the horizontal long, vertical long and short axes views. A gated Cardiolite study at peak stress was obtained. INTERPRETATION: Rest and stress SPECT Cardiolite nuclear imaging demonstrate an area of extracardiac/hepatic and gastrointestinal tracer uptake near the inferior segments. There is notation of an area of diminished tracer uptake in portions of the mid towards distal anteroseptal segments, which appears to be somewhat more prominent following stress as opposed to rest. There are similar type findings on the resting and stress polar map images. There was notation of end systolic thickening and brightening. The gated Cardiolite study demonstrates myocardial thickening and inward wall motion. The reported LVEF was 54%. The aforementioned changes may be compatible with shifting soft tissue attenuation/artifact, however, an area of myocardial ischemia in portions of the mid to distal anteroseptal segments cannot be excluded. IMPRESSION: 1. Rest and stress SPECT Cardiolite nuclear imaging demonstrate myocardial perfusion changes potentially compatible with the effects of shifting soft tissue attenuation/artifact. However, an area of myocardial ischemia in portions of the mid to distal anteroseptal segments cannot be excluded. 2. The gated Cardiolite study reports an LVEF of 54%. Demetri Valverde MD T: NTS JOB: [id number] 03/13/15 0843 <Electronically signed by Demetri Valverde MD> Date Demetri Valverde MD CC: Suman Gaytan MD; Demetri Valverde MD Date Dictated: 03/12/15911 Date Transcribed: 03/12/15911 Community Living Specialist: Signed Shruthi Song Start: 03-06-2015 End: 03-12-2015 *Hepatic Function Panel Demetri Valverde MD Start: 03-06-2015 End: 03-06-2015 aPTT Demetri Valvrede MD Start: 03-06-2015 End: 03-07-2015 Documentation of current medications Demetri Valverde MD Start: 03-06-2015 End: 03-06-2015 Follow Up Appt 6 months Demetri Valverde MD Start: 03-06-2015 End: 03-12-2015 Lipid panel [AGGREGATE] Demetri Valverde MD Start: 03-06-2015 End: 03-06-2015 PFM Demetri Valverde MD Start: 02-17-2014 End: 02-17-2014 Follow Up Appt 6 months Demetri Valverde MD Start: 02-17-2014 End: 02-17-2014 PFM Demetri Valverde MD Start: 12-26-2013 End: 12-26-2013 Spmtry w/vc expiratory natasha w/wo mxml vol vntj _ Suman Gaytan Work Phone: Comment on above: see scanned document of test done to see results reviewed today with patient Start: 12-22-2013 End: 02-20-2014 *Hepatic Function Panel Demetri Valverde MD Start: 12-22-2013 End: 03-16-2015 Lipid panel [AGGREGATE] Demetri Valverde MD Start: 07-08-2013 End: 07-09-2013 *Hepatic Function Panel Demetri Valverde MD Start: 07-08-2013 End: 07-08-2013 Electrocardiogram, complete Demetri Valverde MD Start: 07-08-2013 End: 07-08-2013 Follow Up Appt 6 months Demetri Valverde MD Start: 07-08-2013 End: 07-09-2013 Lipid panel [AGGREGATE] Demetri Valverde MD Start: 07-08-2013 End: 07-08-2013 PFM Demetri Valverde MD Start: 01-31-2013 End: 01-31-2013 *BMP Annmarie Huerta PA-C Work Phone: Start: 01-31-2013 End: 01-31-2013 *EKG (Done in Hospital) Annmarie Huerta PA-C Work Phone: Start: 01-31-2013 End: 01-31-2013 Electrocardiogram Annmarie Huerta PA-C Work Phone: Start: 01-31-2013 End: 02-01-2013 Nuclear stress test -adenosine Annmarie Huerta PA-C Work Phone: Start: 10-03-2012 End: 01-31-2013 *Hepatic Function Panel Qasim Galan MD Start: 10-03-2012 End: 01-31-2013 Lipid panel [AGGREGATE] Qasim Galan MD Start: 07-05-2012 End: 07-05-2012 Follow Up Appt 6 months Qasim Galan MD Start: 06-27-2012 End: 07-05-2012 *Hepatic Function Panel Qasim Galan MD Start: 06-27-2012 End: 07-05-2012 Lipid panel [AGGREGATE] Qasim Galan MD Start: 01-16-2012 End: 01-15-2013 Mri Tech Qasim Galan MD Start: 01-16-2012 End: 01-15-2013 Electrocardiogram, complete Qasim Galan MD Start: 01-16-2012 End: 01-16-2012 Follow Up Appt 6 months Qasim Galan MD Start: 09-28-2011 End: 01-16-2012 *Hepatic Function Panel Qasim Galan MD Start: 09-28-2011 End: 01-16-2012 Lipid panel [AGGREGATE] Qasim Galan MD Start: 07-04-2011 End: 07-04-2011 Follow Up Appt 6 months Qasim Galan MD Start: 07-04-2011 End: 07-21-2011 Nuclear stress test -adenosine Qasim Galan MD Colonoscopy Kailarubia Cotto Comment on above: 03-10-14 Dr. Martinez repeat in 5 years Colonoscopy Leni Lei Comment on above: 03-10-14 Dr. Martinez repeat in 5 years Colonoscopy Kaila Yadiel Comment on above: 03-10-14 Dr. Martinez repeat in 5 years Colonoscopy Iveth Thomas n Comment on above: 03-10-14 Dr. Martinez repeat in 5 years Colonoscopy Sam Vaca LP N Comment on above: 03-10-14 Dr. Martinez repeat in 5 years Colonoscopy Shavonne Galloway MA Colonoscopy Ghazala Slarb LP N History of total hip arthroplasty Iveth Blanco Comment on above: Bilaterally Dr. Shabazz 2007 History of total hip arthroplasty Sam Vaca [employer] Comment on above: Bilaterally Dr. Mele Ceja History of total hip arthroplasty Shavonne Galloway MA History of total hip arthroplasty Ghazala Alexsandrarb [employer] Prosthetic arthropla sty of the hip Kaila Isaacesequiel Comment on above: Bilaterally Dr. Mele Ceja Prosthetic arthropla sty of the hip Leni Lei Comment on above: Bilaterally Dr. Shabazz 2007 Total replacement of hip David pollo Cotto Comment on above: Bilaterally Dr. Shabazz 2007 Plan of Treatment Date Care Activity Detail Author Start: 08-26-2022 Procedure [facility] Work Phone: Start: 08-17-2022 Procedure Education [facility] Work Phone: Start: 05-23-2022 Procedure Education [facility]; [facility] Work Phone: Start: 05-23-2022 Provider Instructions for Treatment [facility]; [facility] Work Phone: Start: 02-23-2022 Procedure Education [facility]; [facility] Work Phone: Start: 02-23-2022 Provider Instructions for Treatment [facility]; [facility] Work Phone: Start: 02-23-2022 Assay of thyroid stimulating hormone tsh TSH (40012) [facility]; [facility] Work Phone: Start: 02-23-2022 Assay of free thyroxine T4, FREE (THYROXINE) (53000) [facility]; [facility] Work Phone: Start: 02-23-2022 Assay of triiodothyronine t3 free T3, FREE (TRIDOTHYRONINE) (89043) [facility]; [facility] Work Phone: Start: 01-13-2022 Urinls dip stick/tablet reagnt non-auto micrscpy URINALYSIS W MICROSCOPY (52761) [facility]; [facility] Work Phone: Start: 01-13-2022 Creatinine other source MICROALB;CREAT RATION, RAND UR (41440) [facility]; [facility] Work Phone: Start: 01-13-2022 Comprehensive metabolic panel METABOLIC PANEL, COMPREHENSIVE (73960) [facility]; [facility] Work Phone: Start: 01-13-2022 Assay of prostate specific antigen total PSA (Medicare - G0103) (38977) [facility]; [facility] Work Phone: Start: 01-13-2022 Lipid panel LIPID PANEL (36041) [facility]; [facility] Work Phone: Start: 01-13-2022 Assay of free thyroxine T4, FREE (THYROXINE) (13300) [facility]; [facility] Work Phone: Start: 01-13-2022 Assay of triiodothyronine t3 free FREE TRIIDOTHYRONINE (T3) (99913) [facility]; [facility] Work Phone: Start: 01-13-2022 Assay of thyroid stimulating hormone tsh TSH (THYROID STIMULATING HORMONE) (97783) [facility]; [facility] Work Phone: Start: 12-14-2020 Procedure Education [facility]; [facility] Work Phone: Start: 12-14-2020 Provider Instructions for Treatment [facility]; [facility] Work Phone: Start: 07-09-2020 Procedure Education [facility]; [facility] Work Phone: Start: 07-09-2020 Iaadiadoo influenza 2019 Novel Coronavirus (COVID-19), DIANE (52037) [facility]; [facility] Work Phone: Start: 05-11-2020 Procedure Education [facility] Work Phone: Start: 07-15-2019 Assay of free thyroxine [facility] Work Phone: Start: 07-15-2019 Free T4 [Mass/Vol] T4, FREE (THYROXINE) (78233) [facility] Work Phone: Start: 07-15-2019 Assay of triiodothyronine t3 free [facility] Work Phone: Start: 07-15-2019 Free T3 [Mass/Vol] T3, FREE (TRIDOTHYRONINE) (07621) [facility] Work Phone: Start: 07-15-2019 Assay of thyroid stimulating hormone tsh [facility] Work Phone: Start: 07-15-2019 TSH Qn TSH (THYROID STIMULATING HORMONE) (56565) [facility] Work Phone: Start: 06-12-2019 Assay of thyroid stimulating hormone tsh [facility] Work Phone: Start: 06-12-2019 TSH Qn TSH (79032) [facility] Work Phone: Start: 06-12-2019 Procedure Education [facility] Work Phone: Start: 06-12-2019 Provider Instructions for Treatment [facility] Work Phone: Start: 06-20-2018 Patient Education [facility] Medicine Work Phone: Start: 06-20-2018 Procedure Education [facility] Work Phone: Start: 06-20-2018 Provider Instructions for Treatment [facility] Work Phone: Start: 04-04-2018 Procedure Education [facility] Work Phone: Start: 04-04-2018 Provider Instructions for Treatment [facility] Work Phone: Start: 03-29-2018 Patient Education [facility] Work Phone: Start: 03-29-2018 Procedure Education [facility] Work Phone: Start: 03-29-2018 Provider Instructions for Treatment [facility] Work Phone: Start: 02-28-2018 Assay of thyroid stimulating hormone tsh [facility] Work Phone: Start: 02-28-2018 Thyrotropin Qn TSH (70997) [facility] Work Phone: Start: 02-28-2018 Assay of free thyroxine [facility] Work Phone: Start: 02-28-2018 T4 free mass conc T4, FREE (THYROXINE) (35799) [facility] Work Phone: Start: 02-28-2018 Assay of triiodothyronine t3 free [facility] Work Phone: Start: 02-28-2018 T3 free mass conc T3, FREE (TRIDOTHYRONINE) ([id number]) [facility] Work Phone: Start: 02-23-2018 Provider Instructions for Treatment [facility] Work Phone: Start: 02-23-2018 Assay of thyroid stimulating hormone tsh [facility] Work Phone: Start: 02-23-2018 Thyrotropin Qn TSH (39455) [facility] Work Phone: Start: 02-23-2018 Comprehensive metabolic panel [facility] Work Phone: Start: 02-23-2018 Blood count complete auto&auto difrntl wbc [facility] Work Phone: Start: 02-23-2018 Lipoprotein blood katie numbers & subclasses [facility] Work Phone: Start: 02-23-2018 Protein mass conc LIPOPROTEIN, BLD, BY NMR (59294) [facility] Work Phone: Start: 02-09-2018 Procedure Education [facility] Work Phone: Start: 02-09-2018 Provider Instructions for Treatment [facility] Work Phone: Start: 12-20-2017 End: 12-20-2017 Appointment Appointment [facility] Work Phone: Start: 11-16-2017 Procedure Education [facility] Work Phone: Start: 11-16-2017 Provider Instructions for Treatment [facility] Work Phone: Start: 10-19-2017 Provider Instructions for Treatment [facility] Work Phone: Start: 10-19-2017 Lipid panel [facility] Work Phone: Start: 07-12-2017 End: 07-12-2017 Appointment Appointment [facility] Work Phone: Start: 12-30-2016 End: 12-19-2016 *Hepatic Function Panel *Hepatic Function Panel [facility] Work Phone: Start: 12-30-2016 End: 12-19-2016 Lipid panel [AGGREGATE] *Lipid Profile CC PCP [facility] Work Phone: Start: 12-29-2016 End: 12-29-2016 Appointment Appointment [facility] Work Phone: Start: 12-29-2016 End: 12-29-2016 Appointment Appointment [facility] Work Phone: Start: 12-29-2016 End: 12-29-2016 *Hepatic Function Panel *Hepatic Function Panel [facility] Work Phone: Start: 12-29-2016 End: 12-29-2016 Electrocardiogram, complete EKG (In office) [facility] Work Phone: Start: 12-29-2016 End: 12-29-2016 Follow Up Appt 6 months Follow Up Appt 6 months [facility] Work Phone: Start: 12-29-2016 End: 12-29-2016 Lipid panel [AGGREGATE] *Lipid Profile CC PCP [facility] Work Phone: Start: 12-29-2016 End: 12-29-2016 PFM PFM [facility] Work Phone: Start: 10-25-2016 Procedure Education [facility] Work Phone: Start: 10-25-2016 Provider Instructions for Treatment [facility] Work Phone: Start: 07-15-2016 Procedure Education [facility] Work Phone: Start: 07-15-2016 Provider Instructions for Treatment [facility] Work Phone: Start: 07-04-2016 End: 12-30-2016 *Hepatic Function Panel *Hepatic Function Panel [facility] Work Phone: Start: 07-04-2016 End: 07-04-2016 Follow Up Appt 6 months Follow Up Appt 6 months [facility] Work Phone: Start: 07-04-2016 End: 12-30-2016 Lipid panel [AGGREGATE] *Lipid Profile CC PCP [facility] Work Phone: Start: 07-04-2016 End: 07-04-2016 PFM PFM [facility] Work Phone: Start: 06-24-2016 End: 07-01-2016 *Hepatic Function Panel *Hepatic Function Panel [facility] Work Phone: Start: 06-24-2016 End: 07-01-2016 Lipid panel [AGGREGATE] *Lipid Profile CC PCP [facility] Work Phone: Start: 02-29-2016 Procedure Education [facility] Work Phone: Start: 02-29-2016 Provider Instructions for Treatment [facility] Work Phone: Start: 02-08-2016 Procedure Education [facility] Work Phone: Start: 12-29-2015 Assay of thyroid stimulating hormone tsh [facility] Work Phone: Start: 12-29-2015 Thyrotropin Qn TSH ([id number]) [facility] Work Phone: Start: 10-30-2015 End: 10-30-2015 Follow Up Appt 6 months Follow Up Appt 6 months [facility] Work Phone: Start: 10-30-2015 End: 10-30-2015 PFM PFM [facility] Work Phone: Start: 10-06-2015 Procedure Education [facility] Work Phone: Start: 10-06-2015 Lipid panel [facility] Work Phone: Comment on above: copyu to Dr. gonzalez Start: 10-06-2015 Urnls dip stick/tablet reagent auto microscopy [facility] Work Phone: Start: 10-06-2015 Blood count manual cell count each [facility] Work Phone: Start: 10-06-2015 Comprehensive metabolic panel [facility] Work Phone: Start: 10-06-2015 Assay of testosterone free [facility] Work Phone: Start: 09-14-2015 End: 10-27-2015 *Hepatic Function Panel *Hepatic Function Panel [facility] Work Phone: Start: 09-14-2015 End: 10-27-2015 Lipid panel [AGGREGATE] *Lipid Profile CC PCP [facility] Work Phone: Start: 03-16-2015 End: 03-23-2015 *BMP *BMP [facility] Work Phone: Start: 03-16-2015 End: 03-23-2015 aPTT *PTT-Partial Thromboplastin Time [facility] Work Phone: Start: 03-16-2015 End: 03-23-2015 aPTT Coag time (PPP) *PTT-Partial Thromboplastin Time [facility] Work Phone: Start: 03-16-2015 End: 03-23-2015 CBC W Auto Differential panel - Blood *CBC without Diff [facility] Work Phone: Start: 03-16-2015 End: 03-23-2015 Chest x-ray X-Ray, Chest, PA & Lateral [facility] Work Phone: Start: 03-16-2015 End: 03-23-2015 Coagulation factor induced.INR assay in platelet poor plasma *PT/INR [facility] Work Phone: Start: 03-06-2015 End: 03-12-2015 *Hepatic Function Panel *Hepatic Function Panel [facility] Work Phone: Start: 03-06-2015 End: 03-06-2015 Electrocardiogram, complete EKG (In office) [facility] Work Phone: Start: 03-06-2015 End: 03-06-2015 Follow Up Appt 6 months Follow Up Appt 6 months [facility] Work Phone: Start: 03-06-2015 End: 03-12-2015 Lipid panel [AGGREGATE] *Lipid Profile CC PCP [facility] Work Phone: Start: 03-06-2015 End: 03-09-2015 Nuclear stress test -Lexiscan Nuclear stress test -Lexiscan [facility] Work Phone: Start: 03-06-2015 End: 03-06-2015 PFM PFM [facility] Work Phone: Start: 10-21-2014 Provider Instructions for Treatment [facility] Work Phone: Start: 05-27-2014 Patient Education [facility] Work Phone: Start: 05-27-2014 Procedure Education [facility] Work Phone: Start: 05-27-2014 Provider Instructions for Treatment [facility] Work Phone: Start: 02-17-2014 End: 02-17-2014 Follow Up Appt 6 months Follow Up Appt 6 months [facility] Work Phone: Start: 02-17-2014 End: 02-17-2014 Follow Up Appt Other Follow Up Appt Other [facility] Work Phone: Start: 02-17-2014 End: 02-17-2014 PFM PFM [facility] Work Phone: Start: 12-22-2013 End: 02-20-2014 *Hepatic Function Panel *Hepatic Function Panel [facility] Work Phone: Start: 12-22-2013 End: 03-16-2015 Lipid panel [AGGREGATE] *Lipid Profile CC PCP [facility] Work Phone: Start: 11-14-2013 Provider Instructions for Treatment [facility] Work Phone: Start: 07-18-2013 Provider Instructions for Treatment [facility] Work Phone: Start: 07-08-2013 End: 07-09-2013 *Hepatic Function Panel *Hepatic Function Panel [facility] Work Phone: Start: 07-08-2013 End: 07-08-2013 Electrocardiogram, complete EKG (In office) [facility] Work Phone: Start: 07-08-2013 End: 07-08-2013 Follow Up Appt 6 months Follow Up Appt 6 months [facility] Work Phone: Start: 07-08-2013 End: 07-09-2013 Lipid panel [AGGREGATE] *Lipid Profile CC PCP [facility] Work Phone: Start: 07-08-2013 End: 07-08-2013 PFM PFM [facility] Work Phone: Start: 03-20-2013 End: 03-20-2013 Electrocardiogram, complete EKG (In office) [facility] Work Phone: Start: 03-20-2013 End: 03-20-2013 Follow Up Appt 4 months Follow Up Appt 4 months [facility] Work Phone: Start: 03-20-2013 End: 03-20-2013 PFM PFM [facility] Work Phone: Start: 01-31-2013 End: 01-31-2013 *BMP *BMP [facility] Work Phone: Start: 01-31-2013 End: 01-31-2013 *CBC with Differential *CBC with Differential [facility] Work Phone: Start: 01-31-2013 End: 01-31-2013 *EKG (Done in Hospital) *EKG (Done in Hospital) [facility] Work Phone: Start: 01-31-2013 End: 01-31-2013 Echocardiography Echocardiogram (complete) [facility] Work Phone: Start: 01-31-2013 End: 01-31-2013 Nuclear stress test -adenosine Nuclear stress test -adenosine [facility] Work Phone: Start: 01-21-2013 Provider Instructions for Treatment [facility] Work Phone: Start: 01-21-2013 Assay of free thyroxine [facility] Work Phone: Start: 01-21-2013 T4 free mass conc T4, FREE (THYROXINE) ([id number]) [facility] Work Phone: Start: 01-21-2013 Assay of triiodothyronine t3 free [facility] Work Phone: Start: 01-21-2013 T3 free mass conc T3, FREE (TRIDOTHYRONINE) (60149) [facility] Work Phone: Start: 01-21-2013 Assay of thyroid stimulating hormone tsh [facility] Work Phone: Start: 01-21-2013 Thyrotropin Qn TSH ([id number]) [facility] Work Phone: Start: 10-26-2012 Provider Instructions for Treatment [facility] Work Phone: Start: 10-03-2012 End: 01-31-2013 *Hepatic Function Panel *Hepatic Function Panel [facility] Work Phone: Start: 10-03-2012 End: 01-31-2013 Lipid panel [AGGREGATE] *Lipid Profile [facility] Work Phone: Start: 07-05-2012 End: 07-05-2012 Follow Up Appt 6 months Follow Up Appt 6 months [facility] Work Phone: Start: 06-29-2012 Patient Education [facility] Work Phone: Start: 06-29-2012 Assay of prostate specific antigen total [facility] Work Phone: Start: 06-29-2012 Protein mass conc PSA (PROSTATE SPECIFIC ANTIGEN) (V76.44) [facility] Work Phone: Start: 06-29-2012 Blood count complete automated [facility] Work Phone: Start: 06-29-2012 Comprehensive metabolic panel [facility] Work Phone: Start: 06-29-2012 Assay of testosterone free [facility] Work Phone: Start: 06-29-2012 Assay of thyroid stimulating hormone tsh [facility] Work Phone: Start: 06-29-2012 Thyrotropin Qn TSH (93060) [facility] Work Phone: Start: 06-27-2012 End: 07-05-2012 *Hepatic Function Panel *Hepatic Function Panel [facility] Work Phone: Start: 06-27-2012 End: 07-05-2012 Lipid panel [AGGREGATE] *Lipid Profile [facility] Work Phone: Start: 06-22-2012 Provider Instructions for Treatment [facility] Work Phone: Start: 04-10-2012 Provider Instructions for Treatment [facility] Work Phone: Start: 04-10-2012 Cul bact xcpt urine blood/stool aerobic isol [facility] Work Phone: Start: 02-06-2012 Patient Education [facility] Work Phone: Start: 01-16-2012 End: 01-16-2012 Mri Tech Mri Tech [facility], [address] [place] [address], [id number] [facility] Work Phone: Start: 01-16-2012 End: 01-16-2012 Electrocardiogram, complete EKG (In office) [facility] Work Phone: Start: 01-16-2012 End: 01-16-2012 Follow Up Appt 6 months Follow Up Appt 6 months [facility] Work Phone: Start: 11-11-2011 Hepatic function panel [facility] Work Phone: Start: 11-11-2011 Assay of testosterone total [facility] Work Phone: Start: 11-11-2011 Testosterone mass conc TESTOSTERONE TOTAL (86487) [facility] Work Phone: Start: 11-10-2011 Comprehensive metabolic panel [facility] Work Phone: Start: 11-10-2011 Lipid panel [facility] Work Phone: Start: 11-10-2011 Assay of thyroid stimulating hormone tsh [facility] Work Phone: Start: 11-10-2011 Thyrotropin Qn TSH (40916) [facility] Work Phone: Start: 11-04-2011 Provider Instructions for Treatment [facility] Work Phone: Start: 10-21-2011 Assay of testosterone free [facility] Work Phone: Start: 09-28-2011 End: 01-16-2012 *Hepatic Function Panel *Hepatic Function Panel [facility] Work Phone: Start: 09-28-2011 End: 01-16-2012 Lipid panel [AGGREGATE] *Lipid Profile [facility] Work Phone: Start: 07-04-2011 End: 07-04-2011 Follow Up Appt 6 months Follow Up Appt 6 months [facility] Work Phone: Start: 07-04-2011 End: 07-05-2011 Nuclear stress test -adenosine Nuclear stress test -adenosine [facility] Work Phone: Start: 06-20-2011 Assay of prostate specific antigen total [facility] Work Phone: Comment on above: in three months (approximately) Start: 06-20-2011 Hepatic function panel [facility] Work Phone: Comment on above: in three months (approximately) Start: 06-01-2011 Assay of thyroid stimulating hormone tsh [facility] Work Phone: Start: 06-01-2011 Thyrotropin Qn TSH (THYROID STIMULATING HORMONE) (15705) [facility] Work Phone: Start: 03-01-2011 Assay of thyroid stimulating hormone tsh [facility] Work Phone: Start: 03-01-2011 Thyrotropin Qn TSH (THYROID STIMULATING HORMONE) ([id number]) [facility] Work Phone: Start: 11-26-2010 Blood count manual cell count each [facility] Work Phone: Start: 11-26-2010 Comprehensive metabolic panel [facility] Work Phone: Start: 11-26-2010 Lipid panel [facility] Work Phone: Start: 11-26-2010 Assay of free thyroxine [facility] Work Phone: Start: 11-26-2010 T4 free mass conc T4, FREE (THYROXINE) (47001) [facility] Work Phone: Start: 11-26-2010 Assay of thyroid stimulating hormone tsh [facility] Work Phone: Start: 11-26-2010 Thyrotropin Qn TSH (19485) [facility] Work Phone: Start: 11-26-2010 Assay of triiodothyronine t3 free [facility] Work Phone: Start: 11-26-2010 T3 free mass conc T3, FREE (TRIDOTHYRONINE) ([id number]) [facility] Work Phone: Start: 04-15-2010 Assay of thyroid stimulating hormone tsh [facility] Work Phone: Start: 04-15-2010 Thyrotropin Qn TSH (58822) [facility] Work Phone: Start: 12-07-2009 Assay of testosterone free [facility] Work Phone: Start: 12-07-2009 Comprehensive metabolic panel [facility] Work Phone: Start: 12-07-2009 Lipid panel [facility] Work Phone: Comment on above: in six months (approximately) Start: 12-07-2009 Assay of prostate specific antigen total [facility] Work Phone: Start: 12-07-2009 Protein mass conc PSA (PROSTATE SPECIFIC ANTIGEN) (V76.44) [facility] Work Phone: Start: 03-23-2009 Microsomal antibodies each [facility] Work Phone: Start: 03-23-2009 Assay of thyroid stimulating hormone tsh [facility] Work Phone: Start: 03-23-2009 Thyrotropin Qn TSH (74840) [facility] Work Phone: Start: 03-23-2009 Assay of free thyroxine [facility] Work Phone: Start: 03-23-2009 T4 free mass conc T4, FREE (THYROXINE) (45316) [facility] Work Phone: Start: 03-23-2009 Assay of triiodothyronine t3 free [facility] Work Phone: Start: 03-23-2009 T3 free mass conc T3, FREE (TRIDOTHYRONINE) (16114) [facility] Work Phone: Start: 03-23-2009 Hepatic function panel [facility] Work Phone: Start: 03-23-2009 Lipid panel [facility] Work Phone: Start: 02-10-2009 Assay of prostate specific antigen total [facility] Work Phone: Start: 02-10-2009 Protein mass conc PSA (PROSTATE SPECIFIC ANTIGEN) (V76.44) [facility] Work Phone: Start: 02-10-2009 Assay of thyroid stimulating hormone tsh [facility] Work Phone: Start: 02-10-2009 Thyrotropin Qn TSH (70749) [facility] Work Phone: Start: 02-10-2009 Urnls dip stick/tablet rgnt auto w/o microscopy [facility] Work Phone: Start: 02-10-2009 Comprehensive metabolic panel [facility] Work Phone: Start: 02-10-2009 Lipid panel [facility] Work Phone: Start: 02-10-2009 Blood count manual cell count each [facility] Work Phone: Start: 11-19-2007 Sedimentation rate rbc non-automated [facility] Work Phone: Start: 11-19-2007 C-reactive protein [facility] Work Phone: Start: 11-19-2007 CRP mass conc C-REACTIVE PROTEIN (38512) [facility] Work Phone: Start: 11-19-2007 Assay of lipase [facility] Work Phone: Start: 11-19-2007 Amylase enzyme act/vol Amylase (92610) [facility] Work Phone: Start: 11-19-2007 Assay of amylase [facility] Work Phone: Start: 11-19-2007 Blood count manual cell count each [facility] Work Phone: Start: 11-19-2007 Comprehensive metabolic panel [facility] Work Phone: Start: 11-02-2006 Lipid panel [facility] Work Phone: Start: 11-02-2006 Assay of thyroid stimulating hormone tsh [facility] Work Phone: Start: 11-02-2006 Blood count complete automated [facility] Work Phone: Start: 11-02-2006 C-reactive protein [facility] Work Phone: Start: 11-02-2006 Comprehensive metabolic panel [facility] Work Phone: Start: 11-02-2006 CRP mass conc C-REACTIVE PROTEIN (93507) [facility] Work Phone: Start: 11-02-2006 Rheumatoid factor quantitative [facility] Work Phone: Start: 11-02-2006 Sedimentation rate rbc non-automated [facility] Work Phone: Start: 11-02-2006 Thyrotropin Qn TSH (76065) [facility] Work Phone: Start: 11-02-2006 Provider Instructions for Treatment [facility] Work Phone: Patient Education [facility] Work Phone: Radionuclide imaging of perfusion of myocardium under exercise stress [facility] Work Phone: [facility] Work Phone: [facility] Work Phone: [facility] Work Phone: [facility] Work Phone: [facility] Work Phone: [facility] Work Phone: [facility] Work Phone[facility] Work Phone: [facility] Work Phone[facility] Work Phone: [facility] Work Phone: [facility] Work Phone: [facility] Work Phone: [facility] Work Phone: [facility] Work Phone: [facility] Work Phone: [facility] Work Phone[facility] Work Phone: [facility] Work Phone: [facility] Work Phone: [facility] Work Phone: [facility] Work Phone: [facility] Work Phone: [facility] Work Phone: [facility] Work Phone: [facility] Work Phone: Immunizations Immunization Date Immunization Notes Care Provider Miguelangel cerna 10-26-2020 COVID-19 (Pfizer) Shruthi james DO Work Phone: [facility]; [facility] Work Phone: 10-05-2020 COVID-19 (Pfizer) Shruthi Song [facility] Work Phone: 05-24-2019 influenza, seasonal, injectable Shruthi Song [facility] Work Phone: 02-10-2009 tetanus toxoid, reduced diphtheria toxoid, and acellular pertussis vaccine, adsorbed Shruthi Song [facility] Work Phone: 05-25-2006 influenza, seasonal, injectable Shruthi Song [facility] Work Phone: Payers Date Payer Category Payer Self-pay [id number] 2020 Unknown [id number] 2016 Medicare [id number] 2015 Medicare [id number] 2015 Unknown [id number] 2011 Unknown [id number] 2009 Private Health Insurance [id number] 2006 Unknown [id number] 1950 Unknown [id number] 2.16.84 [id number] 1950 Unknown [id number] 2.16.84 [id number] 1950 Unknown [id number] 2.16.84 [id number] Unknown Unknown [id number] Unknown [id number] 2.16.8 [id number] Unknown [id number] 2.16.8 [id number] Unknown [id number] 2.16.8 [id number] Unknown [id number] 2.16.8 [id number] Unknown [id number] 2.16.8 [id number] Unknown [id number] 2.16.8 [id number] Unknown [id number] 2.16.8 [id number] Unknown [id number] 2.16.8 [id number] Unknown [id number] 2.16.8 [id number] Unknown [id number] 2.16.8 [id number] Unknown [id number] 2.16.8 [id number] Unknown [id number] 2.16.8 [id number] Unknown [id number] 2.16.8 [id number] Unknown [id number] 2.16.8 [id number] Social History Date Type Detail Facility Alcohol Use Never smoker [facility] Work Phone: Comment on above: Occasional alcohol u se 1 cup coffee qd Full-time, [employer] , Lives with spouse Tobacco use: Never smoker. [facility] Work Phone: Tobacco use: Tobacco use: [facility] Work Phone: Start: 11-03-2021 End: 06-02-2023 Tobacco smoking status NHIS Unknown if ever smoked [facility] Start: 12-24-2015 Occasional [facility] Start: 12-24-2015 None [facility] Start: 12-24-2015 Spouse/ Signif icant Other [facility] Start: 1950 Sex Assigned At Male [facility] Start: 06-02-2023 Tobacco smoking status NHIS Never smoked tobacco (finding) [facility] Start: 10-20-2024 Sex Male (finding) [facility] Functional Status Date Assessment Result Facility 06-13-2019 LP-IR Score 63 [facility] Work Phone: Comment on above: INSULIN RESISTANCE M MICKKER <--Insulin Sensitive Insulin Resistant--> Percentile in Reference PopulationInsulin Resistance ScoreLP-IR Score Low 25th 50th 75th High <27 27 45 63 >63LP-IR Score is inaccurate if patient is non-fasting. .The LP-IR score is a laboratory developed index that has beenassociated with insulin resistance and diabetes risk and should beused as one component of a physician's clinical assessment. Test(s) 867763-EUK-T ; 138443-ZPJ-F; 484171-NWU-Z; 128037-Efuzeailaagnu; 130702-Wotxguypsbs, Total; 032454-TPM-Y (Total);244088-Qfzok LDL-P; 152957-XYI Size; 499169-LP-DO Scorewas developed and its performance characteristics determinedby [employer]. It has not been cleared or approved by the Foodand Drug Administration.PATIENT WAS FASTINGPERFORMED BY: [employer] [facility] [id number] BY: [employer] [facility] [id number] 11-02-2017 LP-IR Score 66 [facility] Work Phone: Comment on above: INSULIN RESISTANCE M ELEAZAR <--Insulin Sensitive Insulin Resistant--> Percentile in Reference PopulationInsulin Resistance ScoreLP-IR Score Low 25th 50th 75th High <27 27 45 63 >63LP-IR Score is inaccurate if patient is non-fasting. .The LP-IR score is a laboratory developed index that has beenassociated with insulin resistance and diabetes risk and should beused as one component of a physician's clinical assessment. TheLP-IR score listed above has not been cleared by the [place] Food andDrug Administration. PATIENT WAS FASTINGP ERFORMED BY: [employer]1447 [facility] [id number] BY: [employer]70 [facility] [id number] Clinical Notes 11-21-2010 to 12-30-2024 Note Date & Type Note Facility 12-30-2024 Radiology Diagnostic study note [facility] Imaging Services [address] [place], [place] [address] CTA Chest W/WO Contrast MR#: [id number] Acct: [id number] Name: GEETHA GONZALEZ Rep #: [id number] : 1950 M 74 From: Nicholas Segovia MD PCP: Dr. Tee Ricardo MD Status: REG C TWAN Study:CTA Chest W/WO Contrast Date of Exam: 12/30/24 Exam# [id number] Ordering Dr: Tee Ricardo MD PROCEDURE: CTA CHEST W/WO CONTRAST 12/30/2024 REASON FOR EXAM: SOB TECHNIQUE: CTA axial imaging of the chest with intravenous contrast. Multiplanar and multisequence images were obtained. PATIENT PREPARATION: Per protocol CONTRAST: Isovue 370 VOLUME: 100 mL One or more dose reduction techniques were used (e.g., Automated exposure control, adjustment of the mA and/or kV according to patient size, use of iterative reconstruction technique). RADIATION DOSE SUMMARY: CTDlvol: 12.4 mGy DLP: 402.73 mGycm . COMPARISON: Prior chest radiograph dated December 09, 2024. FINDINGS: Hardware: None Lymph nodes: No suspicious lymph nodes are seen. Heart: Coronary artery calcifications are noted. Thoracic Aorta: No thoracic aortic aneurysm or dissection. Pulmonary Vessels: No evidence of pulmonary embolism. Lungs and Airways: Mild increased markings at the lung bases suggestive of linear atelectasis and/or scarring. Pleura: No pleural effusion. Upper Abdomen: Unremarkable. Bones: Degenerative changes of the thoracic spine. CT/CTA Chest W/WO Contrast IMPRESSION: NORMAL CHEST CTA. NO EVIDENCE OF ACUTE PULMONARY EMBOLISM. Findings suggestive of mild linear atelectasis and/or scarring at the lung bases. [facility]: Dr. Tee Ricardo MD ~ Community Living Specialist: Signed [facility] 11-29-2024 Radiology Diagnostic study note [facility] Imaging Services [address] [place] [address] Chest PA and Lateral MR#: [id number] Acct: [id number] Name: GEETHA GONZALEZ Rep #: [id number] : 1950 M [id number] From: Cecilia Kern MD PCP: Dr. Tee Ricardo MD Status: CAMERON TRENT Study:Chest PA and Lateral Date of Exam: 11/29/24 Exam# [id number] Ordering Dr: Tee Ricardo MD PROCEDURE: CHEST PA AND LATERAL 11/29/2024 REASON FOR EXAM: SOB TECHNIQUE: Frontal and lateral views of the chest. COMPARISON: 11/02/2020 FINDINGS: Lungs: Lungs clear of pneumonia and congestion. Pleura: No pleural effusions, thickening, or pneumothorax. Heart: Normal in size and configuration. Mediastinum/Jeremias: Unremarkable. Great vessels: Unremarkable. Bones/soft tissues: Multilevel spondylosis. RAD/Chest PA and Lateral IMPRESSION: No active cardiopulmonary disease. Reading Location: [facility] CC: Dr. 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 February 24, 2025 8:18am [facility] Work Phone: Instructions* Name Dates Details How to Access Health Informa tion Online using Patient Portal and [employer] Indication:Current nonsmoker (Renamed from Current non-smoker) Start:09-Jul-2020 Instruction Type:Patient Education Patient Instructions Indication:Current nonsmoker (Renamed from Current non-smoker) Start:09-Jul-2020 Instruction Type:Provider Instructions for Treatment How to access health informa tion online Indication:Current nonsmoker (Renamed from Current non-smoker) Start:11-May-2020 Instruction Type:Patient Education How to access health informa tion online - Detail Indication:Current nonsmoker (Renamed from Current non-smoker) Start:11-May-2020 Instruction Type:Patient Education Patient Instructions Indication:Current nonsmoker (Renamed from Current non-smoker) Start:11-May-2020 Instruction Type:Provider Instructions for Treatment cardiovascular counseling Indication:Coronary artery disease Start:12-Jun-2019 Instruction Type:Provider Instructions for Treatment How to access health informa tion online Indication:Current nonsmoker (Renamed from Current non-smoker) Start:12-Jun-2019 Instruction Type:Patient Education How to access health informa tion online - Detail Indication:Current nonsmoker (Renamed from Current non-smoker) Start:12-Jun-2019 Instruction Type:Patient Education Patient Instructions Indication:Current nonsmoker (Renamed from Current non-smoker) Start:12-Jun-2019 Instruction Type:Provider Instructions for Treatment How to access health informa tion online Indication:Current nonsmoker (Renamed from Current non-smoker) Start:20-Jun-2018 Instruction Type:Patient Education How to access health informa tion online - Detail Indication:Current nonsmoker (Renamed from Current non-smoker) Start:20-Jun-2018 Instruction Type:Patient Education Patient Instructions Indication:Current nonsmoker (Renamed from Current non-smoker) Start:20-Jun-2018 Instruction Type:Provider Instructions for Treatment How to access health informa tion online Indication:Current nonsmoker (Renamed from Current non-smoker) Start:04-Apr-2018 Instruction Type:Patient Education How to access health informa tion online - Detail Indication:Current nonsmoker (Renamed from Current non-smoker) Start:04-Apr-2018 Instruction Type:Patient Education Patient Instructions Indication:Current nonsmoker (Renamed from Current non-smoker) Start:04-Apr-2018 Instruction Type:Provider Instructions for Treatment How to access health informa tion online Indication:BMI 27.0-27.9,adult Start:29-Mar-2018 Instruction Type:Patient Education How to access health informa tion online - Detail Indication:BMI 27.0-27.9,adult Start:29-Mar-2018 Instruction Type:Patient Education Patient Instructions Indication:BMI 27.0-27.9,adult Start:29-Mar-2018 Instruction Type:Provider Instructions for Treatment How to access health informa tion online Indication:BMI 27.0-27.9,adult Start:23-Feb-2018 Instruction Type:Patient Education How to access health informa tion online - Detail Indication:BMI 27.0-27.9,adult Start:23-Feb-2018 Instruction Type:Patient Education Patient Instructions Indication:BMI 27.0-27.9,adult Start:23-Feb-2018 Instruction Type:Provider Instructions for Treatment Patient Instructions Indication:BMI 27.0-27.9,adult Start:23-Feb-2018 Instruction Type:Provider Instructions for Treatment How to access health informa tion online Indication:BMI 29.0-29.9,adult Start:09-Feb-2018 Instruction Type:Patient Education How to access health informa tion online - Detail Indication:BMI 29.0-29.9,adult Start:09-Feb-2018 Instruction Type:Patient Education Patient Instructions Indication:BMI 29.0-29.9,adult Start:09-Feb-2018 Instruction Type:Provider Instructions for Treatment How to access health informa tion online Indication:Sinus pressure Start:16-Nov-2017 Instruction Type:Patient Education How to access health informa tion online - Detail Indication:Sinus pressure Start:16-Nov-2017 Instruction Type:Patient Education Patient Instructions Indication:Sinus pressure Start:16-Nov-2017 Instruction Type:Provider Instructions for Treatment How to access health informa tion online Indication:Current nonsmoker (Renamed from Current non-smoker) Start:19-Oct-2017 Instruction Type:Patient Education How to access health informa tion online - Detail Indication:Current nonsmoker (Renamed from Current non-smoker) Start:19-Oct-2017 Instruction Type:Patient Education Patient Instructions Indication:Current nonsmoker (Renamed from Current non-smoker) Start:19-Oct-2017 Instruction Type:Provider Instructions for Treatment How to access health informa tion online Indication:Sinus pressure Start:25-Oct-2016 Instruction Type:Patient Education How to access health informa tion online - Detail Indication:Sinus pressure Start:25-Oct-2016 Instruction Type:Patient Education Patient Instructions Indication:Sinus pressure Start:25-Oct-2016 Instruction Type:Provider Instructions for Treatment How to access health informa tion online Indication:Cough Start:15-Jul-2016 Instruction Type:Patient Education How to access health informa tion online - Detail Indication:Cough Start:15-Jul-2016 Instruction Type:Patient Education Patient Instructions Indication:Cough Start:15-Jul-2016 Instruction Type:Provider Instructions for Treatment How to access health informa tion online Indication:Rash Start:29-Feb-2016 Instruction Type:Patient Education How to access health informa tion online - Detail Indication:Rash Start:29-Feb-2016 Instruction Type:Patient Education How to access health informa tion online Indication:Rash Start:08-Feb-2016 Instruction Type:Patient Education How to access health informa tion online - Detail Indication:Rash Start:08-Feb-2016 Instruction Type:Patient Education Patient Instructions Indication:Rash Start:08-Feb-2016 Instruction Type:Provider Instructions for Treatment How to access health informa tion online Indication:Fatigue Start:29-Dec-2015 Instruction Type:Patient Education How to access health informa tion online - Detail Indication:Fatigue Start:29-Dec-2015 Instruction Type:Patient Education Patient Instructions Indication:Fatigue Start:29-Dec-2015 Instruction Type:Provider Instructions for Treatment How to access health informa tion online Indication:Hypothyroidism Start:06-Oct-2015 Instruction Type:Patient Education How to access health informa tion online - Detail Indication:Hypothyroidism Start:06-Oct-2015 Instruction Type:Patient Education Patient Instructions Indication:Hypothyroidism Start:06-Oct-2015 Instruction Type:Provider Instructions for Treatment Patient Instructions Indication:Rash Start:27-May-2014 Instruction Type:Provider Instructions for Treatment Patient Instructions Indication:Acute pharyngitis Start:27-May-2014 Instruction Type:Provider Instructions for Treatment How to access health informa tion online Indication:Acute pharyngitis Start:27-May-2014 Instruction Type:Patient Education Patient Instructions Indication:Acute sinusitis, unspecified Start:14-Nov-2013 Instruction Type:Provider Instructions for Treatment Patient Instructions Indication:Hypothyroidism Start:29-Jun-2012 Instruction Type:Provider Instructions for Treatment Patient Instructions Indication:Bronchitis Start:22-Jun-2012 Instruction Type:Provider Instructions for Treatment [facility] Work Phone: Instructions* Name Dates Details How to Access Health Informa tion Online using Patient Portal and [employer] Indication:Current nonsmoker (Renamed from Current non-smoker) Start:09-Jul-2020 Instruction Type:Patient Education Patient Instructions Indication:Current nonsmoker (Renamed from Current non-smoker) Start:09-Jul-2020 Instruction Type:Provider Instructions for Treatment How to access health informa tion online Indication:Current nonsmoker (Renamed from Current non-smoker) Start:11-May-2020 Instruction Type:Patient Education How to access health informa tion online - Detail Indication:Current nonsmoker (Renamed from Current non-smoker) Start:11-May-2020 Instruction Type:Patient Education Patient Instructions Indication:Current nonsmoker (Renamed from Current non-smoker) Start:11-May-2020 Instruction Type:Provider Instructions for Treatment cardiovascular counseling Indication:Coronary artery disease Start:12-Jun-2019 Instruction Type:Provider Instructions for Treatment How to access health informa tion online Indication:Current nonsmoker (Renamed from Current non-smoker) Start:12-Jun-2019 Instruction Type:Patient Education How to access health informa tion online - Detail Indication:Current nonsmoker (Renamed from Current non-smoker) Start:12-Jun-2019 Instruction Type:Patient Education Patient Instructions Indication:Current nonsmoker (Renamed from Current non-smoker) Start:12-Jun-2019 Instruction Type:Provider Instructions for Treatment How to access health informa tion online Indication:Current nonsmoker (Renamed from Current non-smoker) Start:20-Jun-2018 Instruction Type:Patient Education How to access health informa tion online - Detail Indication:Current nonsmoker (Renamed from Current non-smoker) Start:20-Jun-2018 Instruction Type:Patient Education Patient Instructions Indication:Current nonsmoker (Renamed from Current non-smoker) Start:20-Jun-2018 Instruction Type:Provider Instructions for Treatment How to access health informa tion online Indication:Current nonsmoker (Renamed from Current non-smoker) Start:04-Apr-2018 Instruction Type:Patient Education How to access health informa tion online - Detail Indication:Current nonsmoker (Renamed from Current non-smoker) Start:04-Apr-2018 Instruction Type:Patient Education Patient Instructions Indication:Current nonsmoker (Renamed from Current non-smoker) Start:04-Apr-2018 Instruction Type:Provider Instructions for Treatment How to access health informa tion online Indication:BMI 27.0-27.9,adult Start:29-Mar-2018 Instruction Type:Patient Education How to access health informa tion online - Detail Indication:BMI 27.0-27.9,adult Start:29-Mar-2018 Instruction Type:Patient Education Patient Instructions Indication:BMI 27.0-27.9,adult Start:29-Mar-2018 Instruction Type:Provider Instructions for Treatment How to access health informa tion online Indication:BMI 27.0-27.9,adult Start:23-Feb-2018 Instruction Type:Patient Education How to access health informa tion online - Detail Indication:BMI 27.0-27.9,adult Start:23-Feb-2018 Instruction Type:Patient Education Patient Instructions Indication:BMI 27.0-27.9,adult Start:23-Feb-2018 Instruction Type:Provider Instructions for Treatment Patient Instructions Indication:BMI 27.0-27.9,adult Start:23-Feb-2018 Instruction Type:Provider Instructions for Treatment How to access health informa tion online Indication:BMI 29.0-29.9,adult Start:09-Feb-2018 Instruction Type:Patient Education How to access health informa tion online - Detail Indication:BMI 29.0-29.9,adult Start:09-Feb-2018 Instruction Type:Patient Education Patient Instructions Indication:BMI 29.0-29.9,adult Start:09-Feb-2018 Instruction Type:Provider Instructions for Treatment How to access health informa tion online Indication:Sinus pressure Start:16-Nov-2017 Instruction Type:Patient Education How to access health informa tion online - Detail Indication:Sinus pressure Start:16-Nov-2017 Instruction Type:Patient Education Patient Instructions Indication:Sinus pressure Start:16-Nov-2017 Instruction Type:Provider Instructions for Treatment How to access health informa tion online Indication:Current nonsmoker (Renamed from Current non-smoker) Start:19-Oct-2017 Instruction Type:Patient Education How to access health informa tion online - Detail Indication:Current nonsmoker (Renamed from Current non-smoker) Start:19-Oct-2017 Instruction Type:Patient Education Patient Instructions Indication:Current nonsmoker (Renamed from Current non-smoker) Start:19-Oct-2017 Instruction Type:Provider Instructions for Treatment How to access health informa tion online Indication:Sinus pressure Start:25-Oct-2016 Instruction Type:Patient Education How to access health informa tion online - Detail Indication:Sinus pressure Start:25-Oct-2016 Instruction Type:Patient Education Patient Instructions Indication:Sinus pressure Start:25-Oct-2016 Instruction Type:Provider Instructions for Treatment How to access health informa tion online Indication:Cough Start:15-Jul-2016 Instruction Type:Patient Education How to access health informa tion online - Detail Indication:Cough Start:15-Jul-2016 Instruction Type:Patient Education Patient Instructions Indication:Cough Start:15-Jul-2016 Instruction Type:Provider Instructions for Treatment How to access health informa tion online Indication:Rash Start:29-Feb-2016 Instruction Type:Patient Education How to access health informa tion online - Detail Indication:Rash Start:29-Feb-2016 Instruction Type:Patient Education How to access health informa tion online Indication:Rash Start:08-Feb-2016 Instruction Type:Patient Education How to access health informa tion online - Detail Indication:Rash Start:08-Feb-2016 Instruction Type:Patient Education Patient Instructions Indication:Rash Start:08-Feb-2016 Instruction Type:Provider Instructions for Treatment How to access health informa tion online Indication:Fatigue Start:29-Dec-2015 Instruction Type:Patient Education How to access health informa tion online - Detail Indication:Fatigue Start:29-Dec-2015 Instruction Type:Patient Education Patient Instructions Indication:Fatigue Start:29-Dec-2015 Instruction Type:Provider Instructions for Treatment How to access health informa tion online Indication:Hypothyroidism Start:06-Oct-2015 Instruction Type:Patient Education How to access health informa tion online - Detail Indication:Hypothyroidism Start:06-Oct-2015 Instruction Type:Patient Education Patient Instructions Indication:Hypothyroidism Start:06-Oct-2015 Instruction Type:Provider Instructions for Treatment Patient Instructions Indication:Rash Start:27-May-2014 Instruction Type:Provider Instructions for Treatment Patient Instructions Indication:Acute pharyngitis Start:27-May-2014 Instruction Type:Provider Instructions for Treatment How to access health informa tion online Indication:Acute pharyngitis Start:27-May-2014 Instruction Type:Patient Education Patient Instructions Indication:Acute sinusitis, unspecified Start:14-Nov-2013 Instruction Type:Provider Instructions for Treatment Patient Instructions Indication:Hypothyroidism Start:29-Jun-2012 Instruction Type:Provider Instructions for Treatment Patient Instructions Indication:Bronchitis Start:22-Jun-2012 Instruction Type:Provider Instructions for Treatment [facility]; [facility] Work Phone: Instructions* Name Dates Details Patient Instructions Indication:Current nonsmoker (Renamed from Current non-smoker) Start:14-Dec-2020 Instruction Type:Provider Instructions for Treatment How to Access Health Informa tion Online using Patient Portal and [employer] Indication:Current nonsmoker (Renamed from Current non-smoker) Start:14-Dec-2020 Instruction Type:Patient Education How to Access Health Informa tion Online using Patient Portal and [employer] Indication:Current nonsmoker (Renamed from Current non-smoker) Start:09-Jul-2020 Instruction Type:Patient Education Patient Instructions Indication:Current nonsmoker (Renamed from Current non-smoker) Start:09-Jul-2020 Instruction Type:Provider Instructions for Treatment How to access health informa tion online Indication:Current nonsmoker (Renamed from Current non-smoker) Start:11-May-2020 Instruction Type:Patient Education How to access health informa tion online - Detail Indication:Current nonsmoker (Renamed from Current non-smoker) Start:11-May-2020 Instruction Type:Patient Education Patient Instructions Indication:Current nonsmoker (Renamed from Current non-smoker) Start:11-May-2020 Instruction Type:Provider Instructions for Treatment cardiovascular counseling Indication:Coronary artery disease Start:12-Jun-2019 Instruction Type:Provider Instructions for Treatment How to access health informa tion online Indication:Current nonsmoker (Renamed from Current non-smoker) Start:12-Jun-2019 Instruction Type:Patient Education How to access health informa tion online - Detail Indication:Current nonsmoker (Renamed from Current non-smoker) Start:12-Jun-2019 Instruction Type:Patient Education Patient Instructions Indication:Current nonsmoker (Renamed from Current non-smoker) Start:12-Jun-2019 Instruction Type:Provider Instructions for Treatment How to access health informa tion online Indication:Current nonsmoker (Renamed from Current non-smoker) Start:20-Jun-2018 Instruction Type:Patient Education How to access health informa tion online - Detail Indication:Current nonsmoker (Renamed from Current non-smoker) Start:20-Jun-2018 Instruction Type:Patient Education Patient Instructions Indication:Current nonsmoker (Renamed from Current non-smoker) Start:20-Jun-2018 Instruction Type:Provider Instructions for Treatment How to access health informa tion online Indication:Current nonsmoker (Renamed from Current non-smoker) Start:04-Apr-2018 Instruction Type:Patient Education How to access health informa tion online - Detail Indication:Current nonsmoker (Renamed from Current non-smoker) Start:04-Apr-2018 Instruction Type:Patient Education Patient Instructions Indication:Current nonsmoker (Renamed from Current non-smoker) Start:04-Apr-2018 Instruction Type:Provider Instructions for Treatment How to access health informa tion online Indication:BMI 27.0-27.9,adult Start:29-Mar-2018 Instruction Type:Patient Education How to access health informa tion online - Detail Indication:BMI 27.0-27.9,adult Start:29-Mar-2018 Instruction Type:Patient Education Patient Instructions Indication:BMI 27.0-27.9,adult Start:29-Mar-2018 Instruction Type:Provider Instructions for Treatment How to access health informa tion online Indication:BMI 27.0-27.9,adult Start:23-Feb-2018 Instruction Type:Patient Education How to access health informa tion online - Detail Indication:BMI 27.0-27.9,adult Start:23-Feb-2018 Instruction Type:Patient Education Patient Instructions Indication:BMI 27.0-27.9,adult Start:23-Feb-2018 Instruction Type:Provider Instructions for Treatment Patient Instructions Indication:BMI 27.0-27.9,adult Start:23-Feb-2018 Instruction Type:Provider Instructions for Treatment How to access health informa tion online Indication:BMI 29.0-29.9,adult Start:09-Feb-2018 Instruction Type:Patient Education How to access health informa tion online - Detail Indication:BMI 29.0-29.9,adult Start:09-Feb-2018 Instruction Type:Patient Education Patient Instructions Indication:BMI 29.0-29.9,adult Start:09-Feb-2018 Instruction Type:Provider Instructions for Treatment How to access health informa tion online Indication:Sinus pressure Start:16-Nov-2017 Instruction Type:Patient Education How to access health informa tion online - Detail Indication:Sinus pressure Start:16-Nov-2017 Instruction Type:Patient Education Patient Instructions Indication:Sinus pressure Start:16-Nov-2017 Instruction Type:Provider Instructions for Treatment How to access health informa tion online Indication:Current nonsmoker (Renamed from Current non-smoker) Start:19-Oct-2017 Instruction Type:Patient Education How to access health informa tion online - Detail Indication:Current nonsmoker (Renamed from Current non-smoker) Start:19-Oct-2017 Instruction Type:Patient Education Patient Instructions Indication:Current nonsmoker (Renamed from Current non-smoker) Start:19-Oct-2017 Instruction Type:Provider Instructions for Treatment How to access health informa tion online Indication:Sinus pressure Start:25-Oct-2016 Instruction Type:Patient Education How to access health informa tion online - Detail Indication:Sinus pressure Start:25-Oct-2016 Instruction Type:Patient Education Patient Instructions Indication:Sinus pressure Start:25-Oct-2016 Instruction Type:Provider Instructions for Treatment How to access health informa tion online Indication:Cough Start:15-Jul-2016 Instruction Type:Patient Education How to access health informa tion online - Detail Indication:Cough Start:15-Jul-2016 Instruction Type:Patient Education Patient Instructions Indication:Cough Start:15-Jul-2016 Instruction Type:Provider Instructions for Treatment How to access health informa tion online Indication:Rash Start:29-Feb-2016 Instruction Type:Patient Education How to access health informa tion online - Detail Indication:Rash Start:29-Feb-2016 Instruction Type:Patient Education How to access health informa tion online Indication:Rash Start:08-Feb-2016 Instruction Type:Patient Education How to access health informa tion online - Detail Indication:Rash Start:08-Feb-2016 Instruction Type:Patient Education Patient Instructions Indication:Rash Start:08-Feb-2016 Instruction Type:Provider Instructions for Treatment How to access health informa tion online Indication:Fatigue Start:29-Dec-2015 Instruction Type:Patient Education How to access health informa tion online - Detail Indication:Fatigue Start:29-Dec-2015 Instruction Type:Patient Education Patient Instructions Indication:Fatigue Start:29-Dec-2015 Instruction Type:Provider Instructions for Treatment How to access health informa tion online Indication:Hypothyroidism Start:06-Oct-2015 Instruction Type:Patient Education How to access health informa tion online - Detail Indication:Hypothyroidism Start:06-Oct-2015 Instruction Type:Patient Education Patient Instructions Indication:Hypothyroidism Start:06-Oct-2015 Instruction Type:Provider Instructions for Treatment Patient Instructions Indication:Rash Start:27-May-2014 Instruction Type:Provider Instructions for Treatment Patient Instructions Indication:Acute pharyngitis Start:27-May-2014 Instruction Type:Provider Instructions for Treatment How to access health informa tion online Indication:Acute pharyngitis Start:27-May-2014 Instruction Type:Patient Education Patient Instructions Indication:Acute sinusitis, unspecified Start:14-Nov-2013 Instruction Type:Provider Instructions for Treatment Patient Instructions Indication:Hypothyroidism Start:29-Jun-2012 Instruction Type:Provider Instructions for Treatment Patient Instructions Indication:Bronchitis Start:22-Jun-2012 Instruction Type:Provider Instructions for Treatment [facility]; [facility] Work Phone: Instructions* Name Dates Details Patient Instructions Indication:Current nonsmoker (Renamed from Current non-smoker) Start:14-Dec-2020 Instruction Type:Provider Instructions for Treatment How to Access Health Informa tion Online using Patient Portal and [employer] Apps Indication:Current nonsmoker (Renamed from Current non-smoker) Start:14-Dec-2020 Instruction Type:Patient Education How to Access Health Informa tion Online using Patient Portal and [employer] Apps Indication:Current nonsmoker (Renamed from Current non-smoker) Start:09-Jul-2020 Instruction Type:Patient Education Patient Instructions Indication:Current nonsmoker (Renamed from Current non-smoker) Start:09-Jul-2020 Instruction Type:Provider Instructions for Treatment How to access health informa tion online Indication:Current nonsmoker (Renamed from Current non-smoker) Start:11-May-2020 Instruction Type:Patient Education How to access health informa tion online - Detail Indication:Current nonsmoker (Renamed from Current non-smoker) Start:11-May-2020 Instruction Type:Patient Education Patient Instructions Indication:Current nonsmoker (Renamed from Current non-smoker) Start:11-May-2020 Instruction Type:Provider Instructions for Treatment cardiovascular counseling Indication:Coronary artery disease Start:12-Jun-2019 Instruction Type:Provider Instructions for Treatment How to access health informa tion online Indication:Current nonsmoker (Renamed from Current non-smoker) Start:12-Jun-2019 Instruction Type:Patient Education How to access health informa tion online - Detail Indication:Current nonsmoker (Renamed from Current non-smoker) Start:12-Jun-2019 Instruction Type:Patient Education Patient Instructions Indication:Current nonsmoker (Renamed from Current non-smoker) Start:12-Jun-2019 Instruction Type:Provider Instructions for Treatment How to access health informa tion online Indication:Current nonsmoker (Renamed from Current non-smoker) Start:20-Jun-2018 Instruction Type:Patient Education How to access health informa tion online - Detail Indication:Current nonsmoker (Renamed from Current non-smoker) Start:20-Jun-2018 Instruction Type:Patient Education Patient Instructions Indication:Current nonsmoker (Renamed from Current non-smoker) Start:20-Jun-2018 Instruction Type:Provider Instructions for Treatment How to access health informa tion online Indication:Current nonsmoker (Renamed from Current non-smoker) Start:04-Apr-2018 Instruction Type:Patient Education How to access health informa tion online - Detail Indication:Current nonsmoker (Renamed from Current non-smoker) Start:04-Apr-2018 Instruction Type:Patient Education Patient Instructions Indication:Current nonsmoker (Renamed from Current non-smoker) Start:04-Apr-2018 Instruction Type:Provider Instructions for Treatment How to access health informa tion online Indication:BMI 27.0-27.9,adult Start:29-Mar-2018 Instruction Type:Patient Education How to access health informa tion online - Detail Indication:BMI 27.0-27.9,adult Start:29-Mar-2018 Instruction Type:Patient Education Patient Instructions Indication:BMI 27.0-27.9,adult Start:29-Mar-2018 Instruction Type:Provider Instructions for Treatment How to access health informa tion online Indication:BMI 27.0-27.9,adult Start:23-Feb-2018 Instruction Type:Patient Education How to access health informa tion online - Detail Indication:BMI 27.0-27.9,adult Start:23-Feb-2018 Instruction Type:Patient Education Patient Instructions Indication:BMI 27.0-27.9,adult Start:23-Feb-2018 Instruction Type:Provider Instructions for Treatment Patient Instructions Indication:BMI 27.0-27.9,adult Start:23-Feb-2018 Instruction Type:Provider Instructions for Treatment How to access health informa tion online Indication:BMI 29.0-29.9,adult Start:09-Feb-2018 Instruction Type:Patient Education How to access health informa tion online - Detail Indication:BMI 29.0-29.9,adult Start:09-Feb-2018 Instruction Type:Patient Education Patient Instructions Indication:BMI 29.0-29.9,adult Start:09-Feb-2018 Instruction Type:Provider Instructions for Treatment How to access health informa tion online Indication:Sinus pressure Start:16-Nov-2017 Instruction Type:Patient Education How to access health informa tion online - Detail Indication:Sinus pressure Start:16-Nov-2017 Instruction Type:Patient Education Patient Instructions Indication:Sinus pressure Start:16-Nov-2017 Instruction Type:Provider Instructions for Treatment How to access health informa tion online Indication:Current nonsmoker (Renamed from Current non-smoker) Start:19-Oct-2017 Instruction Type:Patient Education How to access health informa tion online - Detail Indication:Current nonsmoker (Renamed from Current non-smoker) Start:19-Oct-2017 Instruction Type:Patient Education Patient Instructions Indication:Current nonsmoker (Renamed from Current non-smoker) Start:19-Oct-2017 Instruction Type:Provider Instructions for Treatment How to access health informa tion online Indication:Sinus pressure Start:25-Oct-2016 Instruction Type:Patient Education How to access health informa tion online - Detail Indication:Sinus pressure Start:25-Oct-2016 Instruction Type:Patient Education Patient Instructions Indication:Sinus pressure Start:25-Oct-2016 Instruction Type:Provider Instructions for Treatment How to access health informa tion online Indication:Cough Start:15-Jul-2016 Instruction Type:Patient Education How to access health informa tion online - Detail Indication:Cough Start:15-Jul-2016 Instruction Type:Patient Education Patient Instructions Indication:Cough Start:15-Jul-2016 Instruction Type:Provider Instructions for Treatment How to access health informa tion online Indication:Rash Start:29-Feb-2016 Instruction Type:Patient Education How to access health informa tion online - Detail Indication:Rash Start:29-Feb-2016 Instruction Type:Patient Education How to access health informa tion online Indication:Rash Start:08-Feb-2016 Instruction Type:Patient Education How to access health informa tion online - Detail Indication:Rash Start:08-Feb-2016 Instruction Type:Patient Education Patient Instructions Indication:Rash Start:08-Feb-2016 Instruction Type:Provider Instructions for Treatment How to access health informa tion online Indication:Fatigue Start:29-Dec-2015 Instruction Type:Patient Education How to access health informa tion online - Detail Indication:Fatigue Start:29-Dec-2015 Instruction Type:Patient Education Patient Instructions Indication:Fatigue Start:29-Dec-2015 Instruction Type:Provider Instructions for Treatment How to access health informa tion online Indication:Hypothyroidism Start:06-Oct-2015 Instruction Type:Patient Education How to access health informa tion online - Detail Indication:Hypothyroidism Start:06-Oct-2015 Instruction Type:Patient Education Patient Instructions Indication:Hypothyroidism Start:06-Oct-2015 Instruction Type:Provider Instructions for Treatment Patient Instructions Indication:Rash Start:27-May-2014 Instruction Type:Provider Instructions for Treatment Patient Instructions Indication:Acute pharyngitis Start:27-May-2014 Instruction Type:Provider Instructions for Treatment How to access health informa tion online Indication:Acute pharyngitis Start:27-May-2014 Instruction Type:Patient Education Patient Instructions Indication:Acute sinusitis, unspecified Start:14-Nov-2013 Instruction Type:Provider Instructions for Treatment Patient Instructions Indication:Hypothyroidism Start:29-Jun-2012 Instruction Type:Provider Instructions for Treatment Patient Instructions Indication:Bronchitis Start:22-Jun-2012 Instruction Type:Provider Instructions for Treatment [facility]; [facility] Work Phone: Instructions* Name Dates Details cardiovascular counseling Indication:Coronary artery disease Start:12-Jun-2019 Instruction Type:Provider Instructions for Treatment How to access health informa tion online Indication:Current nonsmoker (Renamed from Current non-smoker) Start:12-Jun-2019 Instruction Type:Patient Education How to access health informa tion online - Detail Indication:Current nonsmoker (Renamed from Current non-smoker) Start:12-Jun-2019 Instruction Type:Patient Education Patient Instructions Indication:Current nonsmoker (Renamed from Current non-smoker) Start:12-Jun-2019 Instruction Type:Provider Instructions for Treatment How to access health informa tion online Indication:Current nonsmoker (Renamed from Current non-smoker) Start:20-Jun-2018 Instruction Type:Patient Education How to access health informa tion online - Detail Indication:Current nonsmoker (Renamed from Current non-smoker) Start:20-Jun-2018 Instruction Type:Patient Education Patient Instructions Indication:Current nonsmoker (Renamed from Current non-smoker) Start:20-Jun-2018 Instruction Type:Provider Instructions for Treatment How to access health informa tion online Indication:Current nonsmoker (Renamed from Current non-smoker) Start:04-Apr-2018 Instruction Type:Patient Education How to access health informa tion online - Detail Indication:Current nonsmoker (Renamed from Current non-smoker) Start:04-Apr-2018 Instruction Type:Patient Education Patient Instructions Indication:Current nonsmoker (Renamed from Current non-smoker) Start:04-Apr-2018 Instruction Type:Provider Instructions for Treatment How to access health informa tion online Indication:BMI 27.0-27.9,adult Start:29-Mar-2018 Instruction Type:Patient Education How to access health informa tion online - Detail Indication:BMI 27.0-27.9,adult Start:29-Mar-2018 Instruction Type:Patient Education Patient Instructions Indication:BMI 27.0-27.9,adult Start:29-Mar-2018 Instruction Type:Provider Instructions for Treatment How to access health informa tion online Indication:BMI 27.0-27.9,adult Start:23-Feb-2018 Instruction Type:Patient Education How to access health informa tion online - Detail Indication:BMI 27.0-27.9,adult Start:23-Feb-2018 Instruction Type:Patient Education Patient Instructions Indication:BMI 27.0-27.9,adult Start:23-Feb-2018 Instruction Type:Provider Instructions for Treatment Patient Instructions Indication:BMI 27.0-27.9,adult Start:23-Feb-2018 Instruction Type:Provider Instructions for Treatment How to access health informa tion online Indication:BMI 29.0-29.9,adult Start:09-Feb-2018 Instruction Type:Patient Education How to access health informa tion online - Detail Indication:BMI 29.0-29.9,adult Start:09-Feb-2018 Instruction Type:Patient Education Patient Instructions Indication:BMI 29.0-29.9,adult Start:09-Feb-2018 Instruction Type:Provider Instructions for Treatment How to access health informa tion online Indication:Sinus pressure Start:16-Nov-2017 Instruction Type:Patient Education How to access health informa tion online - Detail Indication:Sinus pressure Start:16-Nov-2017 Instruction Type:Patient Education Patient Instructions Indication:Sinus pressure Start:16-Nov-2017 Instruction Type:Provider Instructions for Treatment How to access health informa tion online Indication:Current nonsmoker (Renamed from Current non-smoker) Start:19-Oct-2017 Instruction Type:Patient Education How to access health informa tion online - Detail Indication:Current nonsmoker (Renamed from Current non-smoker) Start:19-Oct-2017 Instruction Type:Patient Education Patient Instructions Indication:Current nonsmoker (Renamed from Current non-smoker) Start:19-Oct-2017 Instruction Type:Provider Instructions for Treatment How to access health informa tion online Indication:Sinus pressure Start:25-Oct-2016 Instruction Type:Patient Education How to access health informa tion online - Detail Indication:Sinus pressure Start:25-Oct-2016 Instruction Type:Patient Education Patient Instructions Indication:Sinus pressure Start:25-Oct-2016 Instruction Type:Provider Instructions for Treatment How to access health informa tion online Indication:Cough Start:15-Jul-2016 Instruction Type:Patient Education How to access health informa tion online - Detail Indication:Cough Start:15-Jul-2016 Instruction Type:Patient Education Patient Instructions Indication:Cough Start:15-Jul-2016 Instruction Type:Provider Instructions for Treatment How to access health informa tion online Indication:Rash Start:29-Feb-2016 Instruction Type:Patient Education How to access health informa tion online - Detail Indication:Rash Start:29-Feb-2016 Instruction Type:Patient Education How to access health informa tion online Indication:Rash Start:08-Feb-2016 Instruction Type:Patient Education How to access health informa tion online - Detail Indication:Rash Start:08-Feb-2016 Instruction Type:Patient Education Patient Instructions Indication:Rash Start:08-Feb-2016 Instruction Type:Provider Instructions for Treatment How to access health informa tion online Indication:Fatigue Start:29-Dec-2015 Instruction Type:Patient Education How to access health informa tion online - Detail Indication:Fatigue Start:29-Dec-2015 Instruction Type:Patient Education Patient Instructions Indication:Fatigue Start:29-Dec-2015 Instruction Type:Provider Instructions for Treatment How to access health informa tion online Indication:Hypothyroidism Start:06-Oct-2015 Instruction Type:Patient Education How to access health informa tion online - Detail Indication:Hypothyroidism Start:06-Oct-2015 Instruction Type:Patient Education Patient Instructions Indication:Hypothyroidism Start:06-Oct-2015 Instruction Type:Provider Instructions for Treatment Patient Instructions Indication:Rash Start:27-May-2014 Instruction Type:Provider Instructions for Treatment Patient Instructions Indication:Acute pharyngitis Start:27-May-2014 Instruction Type:Provider Instructions for Treatment How to access health informa tion online Indication:Acute pharyngitis Start:27-May-2014 Instruction Type:Patient Education Patient Instructions Indication:Acute sinusitis, unspecified Start:14-Nov-2013 Instruction Type:Provider Instructions for Treatment Patient Instructions Indication:Hypothyroidism Start:29-Jun-2012 Instruction Type:Provider Instructions for Treatment Patient Instructions Indication:Bronchitis Start:22-Jun-2012 Instruction Type:Provider Instructions for Treatment [facility] Work Phone: Instructions* Name Dates Details Patient Instructions Indication:Current nonsmoker (Renamed from Current non-smoker) Start:14-Dec-2020 Instruction Type:Provider Instructions for Treatment How to Access Health Informa tion Online using Patient Portal and [employer] Apps Indication:Current nonsmoker (Renamed from Current non-smoker) Start:14-Dec-2020 Instruction Type:Patient Education How to Access Health Informa tion Online using Patient Portal and [employer] Indication:Current nonsmoker (Renamed from Current non-smoker) Start:09-Jul-2020 Instruction Type:Patient Education Patient Instructions Indication:Current nonsmoker (Renamed from Current non-smoker) Start:09-Jul-2020 Instruction Type:Provider Instructions for Treatment How to access health informa tion online Indication:Current nonsmoker (Renamed from Current non-smoker) Start:11-May-2020 Instruction Type:Patient Education How to access health informa tion online - Detail Indication:Current nonsmoker (Renamed from Current non-smoker) Start:11-May-2020 Instruction Type:Patient Education Patient Instructions Indication:Current nonsmoker (Renamed from Current non-smoker) Start:11-May-2020 Instruction Type:Provider Instructions for Treatment cardiovascular counseling Indication:Coronary artery disease Start:12-Jun-2019 Instruction Type:Provider Instructions for Treatment How to access health informa tion online Indication:Current nonsmoker (Renamed from Current non-smoker) Start:12-Jun-2019 Instruction Type:Patient Education How to access health informa tion online - Detail Indication:Current nonsmoker (Renamed from Current non-smoker) Start:12-Jun-2019 Instruction Type:Patient Education Patient Instructions Indication:Current nonsmoker (Renamed from Current non-smoker) Start:12-Jun-2019 Instruction Type:Provider Instructions for Treatment How to access health informa tion online Indication:Current nonsmoker (Renamed from Current non-smoker) Start:20-Jun-2018 Instruction Type:Patient Education How to access health informa tion online - Detail Indication:Current nonsmoker (Renamed from Current non-smoker) Start:20-Jun-2018 Instruction Type:Patient Education Patient Instructions Indication:Current nonsmoker (Renamed from Current non-smoker) Start:20-Jun-2018 Instruction Type:Provider Instructions for Treatment How to access health informa tion online Indication:Current nonsmoker (Renamed from Current non-smoker) Start:04-Apr-2018 Instruction Type:Patient Education How to access health informa tion online - Detail Indication:Current nonsmoker (Renamed from Current non-smoker) Start:04-Apr-2018 Instruction Type:Patient Education Patient Instructions Indication:Current nonsmoker (Renamed from Current non-smoker) Start:04-Apr-2018 Instruction Type:Provider Instructions for Treatment How to access health informa tion online Indication:BMI 27.0-27.9,adult Start:29-Mar-2018 Instruction Type:Patient Education How to access health informa tion online - Detail Indication:BMI 27.0-27.9,adult Start:29-Mar-2018 Instruction Type:Patient Education Patient Instructions Indication:BMI 27.0-27.9,adult Start:29-Mar-2018 Instruction Type:Provider Instructions for Treatment How to access health informa tion online Indication:BMI 27.0-27.9,adult Start:23-Feb-2018 Instruction Type:Patient Education How to access health informa tion online - Detail Indication:BMI 27.0-27.9,adult Start:23-Feb-2018 Instruction Type:Patient Education Patient Instructions Indication:BMI 27.0-27.9,adult Start:23-Feb-2018 Instruction Type:Provider Instructions for Treatment Patient Instructions Indication:BMI 27.0-27.9,adult Start:23-Feb-2018 Instruction Type:Provider Instructions for Treatment How to access health informa tion online Indication:BMI 29.0-29.9,adult Start:09-Feb-2018 Instruction Type:Patient Education How to access health informa tion online - Detail Indication:BMI 29.0-29.9,adult Start:09-Feb-2018 Instruction Type:Patient Education Patient Instructions Indication:BMI 29.0-29.9,adult Start:09-Feb-2018 Instruction Type:Provider Instructions for Treatment How to access health informa tion online Indication:Sinus pressure Start:16-Nov-2017 Instruction Type:Patient Education How to access health informa tion online - Detail Indication:Sinus pressure Start:16-Nov-2017 Instruction Type:Patient Education Patient Instructions Indication:Sinus pressure Start:16-Nov-2017 Instruction Type:Provider Instructions for Treatment How to access health informa tion online Indication:Current nonsmoker (Renamed from Current non-smoker) Start:19-Oct-2017 Instruction Type:Patient Education How to access health informa tion online - Detail Indication:Current nonsmoker (Renamed from Current non-smoker) Start:19-Oct-2017 Instruction Type:Patient Education Patient Instructions Indication:Current nonsmoker (Renamed from Current non-smoker) Start:19-Oct-2017 Instruction Type:Provider Instructions for Treatment How to access health informa tion online Indication:Sinus pressure Start:25-Oct-2016 Instruction Type:Patient Education How to access health informa tion online - Detail Indication:Sinus pressure Start:25-Oct-2016 Instruction Type:Patient Education Patient Instructions Indication:Sinus pressure Start:25-Oct-2016 Instruction Type:Provider Instructions for Treatment How to access health informa tion online Indication:Cough Start:15-Jul-2016 Instruction Type:Patient Education How to access health informa tion online - Detail Indication:Cough Start:15-Jul-2016 Instruction Type:Patient Education Patient Instructions Indication:Cough Start:15-Jul-2016 Instruction Type:Provider Instructions for Treatment How to access health informa tion online Indication:Rash Start:29-Feb-2016 Instruction Type:Patient Education How to access health informa tion online - Detail Indication:Rash Start:29-Feb-2016 Instruction Type:Patient Education How to access health informa tion online Indication:Rash Start:08-Feb-2016 Instruction Type:Patient Education How to access health informa tion online - Detail Indication:Rash Start:08-Feb-2016 Instruction Type:Patient Education Patient Instructions Indication:Rash Start:08-Feb-2016 Instruction Type:Provider Instructions for Treatment How to access health informa tion online Indication:Fatigue Start:29-Dec-2015 Instruction Type:Patient Education How to access health informa tion online - Detail Indication:Fatigue Start:29-Dec-2015 Instruction Type:Patient Education Patient Instructions Indication:Fatigue Start:29-Dec-2015 Instruction Type:Provider Instructions for Treatment How to access health informa tion online Indication:Hypothyroidism Start:06-Oct-2015 Instruction Type:Patient Education How to access health informa tion online - Detail Indication:Hypothyroidism Start:06-Oct-2015 Instruction Type:Patient Education Patient Instructions Indication:Hypothyroidism Start:06-Oct-2015 Instruction Type:Provider Instructions for Treatment Patient Instructions Indication:Rash Start:27-May-2014 Instruction Type:Provider Instructions for Treatment Patient Instructions Indication:Acute pharyngitis Start:27-May-2014 Instruction Type:Provider Instructions for Treatment How to access health informa tion online Indication:Acute pharyngitis Start:27-May-2014 Instruction Type:Patient Education Patient Instructions Indication:Acute sinusitis, unspecified Start:14-Nov-2013 Instruction Type:Provider Instructions for Treatment Patient Instructions Indication:Hypothyroidism Start:29-Jun-2012 Instruction Type:Provider Instructions for Treatment Patient Instructions Indication:Bronchitis Start:22-Jun-2012 Instruction Type:Provider Instructions for Treatment [facility]; [facility] Work Phone: Instructions* Name Dates Details Patient Instructions Indication:Current nonsmoker (Renamed from Current non-smoker) Start:14-Dec-2020 Instruction Type:Provider Instructions for Treatment How to Access Health Informa tion Online using Patient Portal and [employer] Indication:Current nonsmoker (Renamed from Current non-smoker) Start:14-Dec-2020 Instruction Type:Patient Education How to Access Health Informa tion Online using Patient Portal and [employer] Indication:Current nonsmoker (Renamed from Current non-smoker) Start:09-Jul-2020 Instruction Type:Patient Education Patient Instructions Indication:Current nonsmoker (Renamed from Current non-smoker) Start:09-Jul-2020 Instruction Type:Provider Instructions for Treatment How to access health informa tion online Indication:Current nonsmoker (Renamed from Current non-smoker) Start:11-May-2020 Instruction Type:Patient Education How to access health informa tion online - Detail Indication:Current nonsmoker (Renamed from Current non-smoker) Start:11-May-2020 Instruction Type:Patient Education Patient Instructions Indication:Current nonsmoker (Renamed from Current non-smoker) Start:11-May-2020 Instruction Type:Provider Instructions for Treatment cardiovascular counseling Indication:Coronary artery disease Start:12-Jun-2019 Instruction Type:Provider Instructions for Treatment How to access health informa tion online Indication:Current nonsmoker (Renamed from Current non-smoker) Start:12-Jun-2019 Instruction Type:Patient Education How to access health informa tion online - Detail Indication:Current nonsmoker (Renamed from Current non-smoker) Start:12-Jun-2019 Instruction Type:Patient Education Patient Instructions Indication:Current nonsmoker (Renamed from Current non-smoker) Start:12-Jun-2019 Instruction Type:Provider Instructions for Treatment How to access health informa tion online Indication:Current nonsmoker (Renamed from Current non-smoker) Start:20-Jun-2018 Instruction Type:Patient Education How to access health informa tion online - Detail Indication:Current nonsmoker (Renamed from Current non-smoker) Start:20-Jun-2018 Instruction Type:Patient Education Patient Instructions Indication:Current nonsmoker (Renamed from Current non-smoker) Start:20-Jun-2018 Instruction Type:Provider Instructions for Treatment How to access health informa tion online Indication:Current nonsmoker (Renamed from Current non-smoker) Start:04-Apr-2018 Instruction Type:Patient Education How to access health informa tion online - Detail Indication:Current nonsmoker (Renamed from Current non-smoker) Start:04-Apr-2018 Instruction Type:Patient Education Patient Instructions Indication:Current nonsmoker (Renamed from Current non-smoker) Start:04-Apr-2018 Instruction Type:Provider Instructions for Treatment How to access health informa tion online Indication:BMI 27.0-27.9,adult Start:29-Mar-2018 Instruction Type:Patient Education How to access health informa tion online - Detail Indication:BMI 27.0-27.9,adult Start:29-Mar-2018 Instruction Type:Patient Education Patient Instructions Indication:BMI 27.0-27.9,adult Start:29-Mar-2018 Instruction Type:Provider Instructions for Treatment How to access health informa tion online Indication:BMI 27.0-27.9,adult Start:23-Feb-2018 Instruction Type:Patient Education How to access health informa tion online - Detail Indication:BMI 27.0-27.9,adult Start:23-Feb-2018 Instruction Type:Patient Education Patient Instructions Indication:BMI 27.0-27.9,adult Start:23-Feb-2018 Instruction Type:Provider Instructions for Treatment Patient Instructions Indication:BMI 27.0-27.9,adult Start:23-Feb-2018 Instruction Type:Provider Instructions for Treatment How to access health informa tion online Indication:BMI 29.0-29.9,adult Start:09-Feb-2018 Instruction Type:Patient Education How to access health informa tion online - Detail Indication:BMI 29.0-29.9,adult Start:09-Feb-2018 Instruction Type:Patient Education Patient Instructions Indication:BMI 29.0-29.9,adult Start:09-Feb-2018 Instruction Type:Provider Instructions for Treatment How to access health informa tion online Indication:Sinus pressure Start:16-Nov-2017 Instruction Type:Patient Education How to access health informa tion online - Detail Indication:Sinus pressure Start:16-Nov-2017 Instruction Type:Patient Education Patient Instructions Indication:Sinus pressure Start:16-Nov-2017 Instruction Type:Provider Instructions for Treatment How to access health informa tion online Indication:Current nonsmoker (Renamed from Current non-smoker) Start:19-Oct-2017 Instruction Type:Patient Education How to access health informa tion online - Detail Indication:Current nonsmoker (Renamed from Current non-smoker) Start:19-Oct-2017 Instruction Type:Patient Education Patient Instructions Indication:Current nonsmoker (Renamed from Current non-smoker) Start:19-Oct-2017 Instruction Type:Provider Instructions for Treatment How to access health informa tion online Indication:Sinus pressure Start:25-Oct-2016 Instruction Type:Patient Education How to access health informa tion online - Detail Indication:Sinus pressure Start:25-Oct-2016 Instruction Type:Patient Education Patient Instructions Indication:Sinus pressure Start:25-Oct-2016 Instruction Type:Provider Instructions for Treatment How to access health informa tion online Indication:Cough Start:15-Jul-2016 Instruction Type:Patient Education How to access health informa tion online - Detail Indication:Cough Start:15-Jul-2016 Instruction Type:Patient Education Patient Instructions Indication:Cough Start:15-Jul-2016 Instruction Type:Provider Instructions for Treatment How to access health informa tion online Indication:Rash Start:29-Feb-2016 Instruction Type:Patient Education How to access health informa tion online - Detail Indication:Rash Start:29-Feb-2016 Instruction Type:Patient Education How to access health informa tion online Indication:Rash Start:08-Feb-2016 Instruction Type:Patient Education How to access health informa tion online - Detail Indication:Rash Start:08-Feb-2016 Instruction Type:Patient Education Patient Instructions Indication:Rash Start:08-Feb-2016 Instruction Type:Provider Instructions for Treatment How to access health informa tion online Indication:Fatigue Start:29-Dec-2015 Instruction Type:Patient Education How to access health informa tion online - Detail Indication:Fatigue Start:29-Dec-2015 Instruction Type:Patient Education Patient Instructions Indication:Fatigue Start:29-Dec-2015 Instruction Type:Provider Instructions for Treatment How to access health informa tion online Indication:Hypothyroidism Start:06-Oct-2015 Instruction Type:Patient Education How to access health informa tion online - Detail Indication:Hypothyroidism Start:06-Oct-2015 Instruction Type:Patient Education Patient Instructions Indication:Hypothyroidism Start:06-Oct-2015 Instruction Type:Provider Instructions for Treatment Patient Instructions Indication:Rash Start:27-May-2014 Instruction Type:Provider Instructions for Treatment Patient Instructions Indication:Acute pharyngitis Start:27-May-2014 Instruction Type:Provider Instructions for Treatment How to access health informa tion online Indication:Acute pharyngitis Start:27-May-2014 Instruction Type:Patient Education Patient Instructions Indication:Acute sinusitis, unspecified Start:14-Nov-2013 Instruction Type:Provider Instructions for Treatment Patient Instructions Indication:Hypothyroidism Start:29-Jun-2012 Instruction Type:Provider Instructions for Treatment Patient Instructions Indication:Bronchitis Start:22-Jun-2012 Instruction Type:Provider Instructions for Treatment [facility]; [facility] Work Phone: Instructions* Name Dates Details Patient Instructions Indication:Current nonsmoker (Renamed from Current non-smoker) Start:23-Feb-2022 Instruction Type:Provider Instructions for Treatment Patient Instructions Indication:Current nonsmoker (Renamed from Current non-smoker) Start:23-Feb-2022 Instruction Type:Provider Instructions for Treatment How to Access Health Informa tion Online using Patient Portal and [employer] Apps Indication:Current nonsmoker (Renamed from Current non-smoker) Start:23-Feb-2022 Instruction Type:Patient Education Patient Instructions Indication:Current nonsmoker (Renamed from Current non-smoker) Start:14-Dec-2020 Instruction Type:Provider Instructions for Treatment How to Access Health Informa tion Online using Patient Portal and [employer] Indication:Current nonsmoker (Renamed from Current non-smoker) Start:14-Dec-2020 Instruction Type:Patient Education How to Access Health Informa tion Online using Patient Portal and [employer] Apps Indication:Current nonsmoker (Renamed from Current non-smoker) Start:09-Jul-2020 Instruction Type:Patient Education Patient Instructions Indication:Current nonsmoker (Renamed from Current non-smoker) Start:09-Jul-2020 Instruction Type:Provider Instructions for Treatment How to access health informa tion online Indication:Current nonsmoker (Renamed from Current non-smoker) Start:11-May-2020 Instruction Type:Patient Education How to access health informa tion online - Detail Indication:Current nonsmoker (Renamed from Current non-smoker) Start:11-May-2020 Instruction Type:Patient Education Patient Instructions Indication:Current nonsmoker (Renamed from Current non-smoker) Start:11-May-2020 Instruction Type:Provider Instructions for Treatment cardiovascular counseling Indication:Coronary artery disease Start:12-Jun-2019 Instruction Type:Provider Instructions for Treatment How to access health informa tion online Indication:Current nonsmoker (Renamed from Current non-smoker) Start:12-Jun-2019 Instruction Type:Patient Education How to access health informa tion online - Detail Indication:Current nonsmoker (Renamed from Current non-smoker) Start:12-Jun-2019 Instruction Type:Patient Education Patient Instructions Indication:Current nonsmoker (Renamed from Current non-smoker) Start:12-Jun-2019 Instruction Type:Provider Instructions for Treatment How to access health informa tion online Indication:Current nonsmoker (Renamed from Current non-smoker) Start:20-Jun-2018 Instruction Type:Patient Education How to access health informa tion online - Detail Indication:Current nonsmoker (Renamed from Current non-smoker) Start:20-Jun-2018 Instruction Type:Patient Education Patient Instructions Indication:Current nonsmoker (Renamed from Current non-smoker) Start:20-Jun-2018 Instruction Type:Provider Instructions for Treatment How to access health informa tion online Indication:Current nonsmoker (Renamed from Current non-smoker) Start:04-Apr-2018 Instruction Type:Patient Education How to access health informa tion online - Detail Indication:Current nonsmoker (Renamed from Current non-smoker) Start:04-Apr-2018 Instruction Type:Patient Education Patient Instructions Indication:Current nonsmoker (Renamed from Current non-smoker) Start:04-Apr-2018 Instruction Type:Provider Instructions for Treatment How to access health informa tion online Indication:BMI 27.0-27.9,adult Start:29-Mar-2018 Instruction Type:Patient Education How to access health informa tion online - Detail Indication:BMI 27.0-27.9,adult Start:29-Mar-2018 Instruction Type:Patient Education Patient Instructions Indication:BMI 27.0-27.9,adult Start:29-Mar-2018 Instruction Type:Provider Instructions for Treatment How to access health informa tion online Indication:BMI 27.0-27.9,adult Start:23-Feb-2018 Instruction Type:Patient Education How to access health informa tion online - Detail Indication:BMI 27.0-27.9,adult Start:23-Feb-2018 Instruction Type:Patient Education Patient Instructions Indication:BMI 27.0-27.9,adult Start:23-Feb-2018 Instruction Type:Provider Instructions for Treatment Patient Instructions Indication:BMI 27.0-27.9,adult Start:23-Feb-2018 Instruction Type:Provider Instructions for Treatment How to access health informa tion online Indication:BMI 29.0-29.9,adult Start:09-Feb-2018 Instruction Type:Patient Education How to access health informa tion online - Detail Indication:BMI 29.0-29.9,adult Start:09-Feb-2018 Instruction Type:Patient Education Patient Instructions Indication:BMI 29.0-29.9,adult Start:09-Feb-2018 Instruction Type:Provider Instructions for Treatment How to access health informa tion online Indication:Sinus pressure Start:16-Nov-2017 Instruction Type:Patient Education How to access health informa tion online - Detail Indication:Sinus pressure Start:16-Nov-2017 Instruction Type:Patient Education Patient Instructions Indication:Sinus pressure Start:16-Nov-2017 Instruction Type:Provider Instructions for Treatment How to access health informa tion online Indication:Current nonsmoker (Renamed from Current non-smoker) Start:19-Oct-2017 Instruction Type:Patient Education How to access health informa tion online - Detail Indication:Current nonsmoker (Renamed from Current non-smoker) Start:19-Oct-2017 Instruction Type:Patient Education Patient Instructions Indication:Current nonsmoker (Renamed from Current non-smoker) Start:19-Oct-2017 Instruction Type:Provider Instructions for Treatment How to access health informa tion online Indication:Sinus pressure Start:25-Oct-2016 Instruction Type:Patient Education How to access health informa tion online - Detail Indication:Sinus pressure Start:25-Oct-2016 Instruction Type:Patient Education Patient Instructions Indication:Sinus pressure Start:25-Oct-2016 Instruction Type:Provider Instructions for Treatment How to access health informa tion online Indication:Cough Start:15-Jul-2016 Instruction Type:Patient Education How to access health informa tion online - Detail Indication:Cough Start:15-Jul-2016 Instruction Type:Patient Education Patient Instructions Indication:Cough Start:15-Jul-2016 Instruction Type:Provider Instructions for Treatment How to access health informa tion online Indication:Rash Start:29-Feb-2016 Instruction Type:Patient Education How to access health informa tion online - Detail Indication:Rash Start:29-Feb-2016 Instruction Type:Patient Education How to access health informa tion online Indication:Rash Start:08-Feb-2016 Instruction Type:Patient Education How to access health informa tion online - Detail Indication:Rash Start:08-Feb-2016 Instruction Type:Patient Education Patient Instructions Indication:Rash Start:08-Feb-2016 Instruction Type:Provider Instructions for Treatment How to access health informa tion online Indication:Fatigue Start:29-Dec-2015 Instruction Type:Patient Education How to access health informa tion online - Detail Indication:Fatigue Start:29-Dec-2015 Instruction Type:Patient Education Patient Instructions Indication:Fatigue Start:29-Dec-2015 Instruction Type:Provider Instructions for Treatment How to access health informa tion online Indication:Hypothyroidism Start:06-Oct-2015 Instruction Type:Patient Education How to access health informa tion online - Detail Indication:Hypothyroidism Start:06-Oct-2015 Instruction Type:Patient Education Patient Instructions Indication:Hypothyroidism Start:06-Oct-2015 Instruction Type:Provider Instructions for Treatment Patient Instructions Indication:Rash Start:27-May-2014 Instruction Type:Provider Instructions for Treatment Patient Instructions Indication:Acute pharyngitis Start:27-May-2014 Instruction Type:Provider Instructions for Treatment How to access health informa tion online Indication:Acute pharyngitis Start:27-May-2014 Instruction Type:Patient Education Patient Instructions Indication:Acute sinusitis, unspecified Start:14-Nov-2013 Instruction Type:Provider Instructions for Treatment Patient Instructions Indication:Hypothyroidism Start:29-Jun-2012 Instruction Type:Provider Instructions for Treatment Patient Instructions Indication:Bronchitis Start:22-Jun-2012 Instruction Type:Provider Instructions for Treatment [facility]; [facility] Work Phone: Instructions* Name Dates Details Patient Instructions Indication:Cough Start:17-Aug-2022 Instruction Type:Provider Instructions for Treatment Patient Instructions Indication:BMI 27.0-27.9,adult Start:23-May-2022 Instruction Type:Provider Instructions for Treatment How to Access Health Informa tion Online using Patient Portal and [employer] Apps Indication:BMI 27.0-27.9,adult Start:23-May-2022 Instruction Type:Patient Education Patient Instructions Indication:Current nonsmoker (Renamed from Current non-smoker) Start:23-Feb-2022 Instruction Type:Provider Instructions for Treatment Patient Instructions Indication:Current nonsmoker (Renamed from Current non-smoker) Start:23-Feb-2022 Instruction Type:Provider Instructions for Treatment How to Access Health Informa tion Online using Patient Portal and [employer] Indication:Current nonsmoker (Renamed from Current non-smoker) Start:23-Feb-2022 Instruction Type:Patient Education Patient Instructions Indication:Current nonsmoker (Renamed from Current non-smoker) Start:14-Dec-2020 Instruction Type:Provider Instructions for Treatment How to Access Health Informa tion Online using Patient Portal and [employer] Indication:Current nonsmoker (Renamed from Current non-smoker) Start:14-Dec-2020 Instruction Type:Patient Education How to Access Health Informa tion Online using Patient Portal and [employer] Indication:Current nonsmoker (Renamed from Current non-smoker) Start:09-Jul-2020 Instruction Type:Patient Education Patient Instructions Indication:Current nonsmoker (Renamed from Current non-smoker) Start:09-Jul-2020 Instruction Type:Provider Instructions for Treatment How to access health informa tion online Indication:Current nonsmoker (Renamed from Current non-smoker) Start:11-May-2020 Instruction Type:Patient Education How to access health informa tion online - Detail Indication:Current nonsmoker (Renamed from Current non-smoker) Start:11-May-2020 Instruction Type:Patient Education Patient Instructions Indication:Current nonsmoker (Renamed from Current non-smoker) Start:11-May-2020 Instruction Type:Provider Instructions for Treatment cardiovascular counseling Indication:Coronary artery disease Start:12-Jun-2019 Instruction Type:Provider Instructions for Treatment How to access health informa tion online Indication:Current nonsmoker (Renamed from Current non-smoker) Start:12-Jun-2019 Instruction Type:Patient Education How to access health informa tion online - Detail Indication:Current nonsmoker (Renamed from Current non-smoker) Start:12-Jun-2019 Instruction Type:Patient Education Patient Instructions Indication:Current nonsmoker (Renamed from Current non-smoker) Start:12-Jun-2019 Instruction Type:Provider Instructions for Treatment How to access health informa tion online Indication:Current nonsmoker (Renamed from Current non-smoker) Start:20-Jun-2018 Instruction Type:Patient Education How to access health informa tion online - Detail Indication:Current nonsmoker (Renamed from Current non-smoker) Start:20-Jun-2018 Instruction Type:Patient Education Patient Instructions Indication:Current nonsmoker (Renamed from Current non-smoker) Start:20-Jun-2018 Instruction Type:Provider Instructions for Treatment How to access health informa tion online Indication:Current nonsmoker (Renamed from Current non-smoker) Start:04-Apr-2018 Instruction Type:Patient Education How to access health informa tion online - Detail Indication:Current nonsmoker (Renamed from Current non-smoker) Start:04-Apr-2018 Instruction Type:Patient Education Patient Instructions Indication:Current nonsmoker (Renamed from Current non-smoker) Start:04-Apr-2018 Instruction Type:Provider Instructions for Treatment How to access health informa tion online Indication:BMI 27.0-27.9,adult Start:29-Mar-2018 Instruction Type:Patient Education How to access health informa tion online - Detail Indication:BMI 27.0-27.9,adult Start:29-Mar-2018 Instruction Type:Patient Education Patient Instructions Indication:BMI 27.0-27.9,adult Start:29-Mar-2018 Instruction Type:Provider Instructions for Treatment How to access health informa tion online Indication:BMI 27.0-27.9,adult Start:23-Feb-2018 Instruction Type:Patient Education How to access health informa tion online - Detail Indication:BMI 27.0-27.9,adult Start:23-Feb-2018 Instruction Type:Patient Education Patient Instructions Indication:BMI 27.0-27.9,adult Start:23-Feb-2018 Instruction Type:Provider Instructions for Treatment Patient Instructions Indication:BMI 27.0-27.9,adult Start:23-Feb-2018 Instruction Type:Provider Instructions for Treatment How to access health informa tion online Indication:BMI 29.0-29.9,adult Start:09-Feb-2018 Instruction Type:Patient Education How to access health informa tion online - Detail Indication:BMI 29.0-29.9,adult Start:09-Feb-2018 Instruction Type:Patient Education Patient Instructions Indication:BMI 29.0-29.9,adult Start:09-Feb-2018 Instruction Type:Provider Instructions for Treatment How to access health informa tion online Indication:Sinus pressure Start:16-Nov-2017 Instruction Type:Patient Education How to access health informa tion online - Detail Indication:Sinus pressure Start:16-Nov-2017 Instruction Type:Patient Education Patient Instructions Indication:Sinus pressure Start:16-Nov-2017 Instruction Type:Provider Instructions for Treatment How to access health informa tion online Indication:Current nonsmoker (Renamed from Current non-smoker) Start:19-Oct-2017 Instruction Type:Patient Education How to access health informa tion online - Detail Indication:Current nonsmoker (Renamed from Current non-smoker) Start:19-Oct-2017 Instruction Type:Patient Education Patient Instructions Indication:Current nonsmoker (Renamed from Current non-smoker) Start:19-Oct-2017 Instruction Type:Provider Instructions for Treatment How to access health informa tion online Indication:Sinus pressure Start:25-Oct-2016 Instruction Type:Patient Education How to access health informa tion online - Detail Indication:Sinus pressure Start:25-Oct-2016 Instruction Type:Patient Education Patient Instructions Indication:Sinus pressure Start:25-Oct-2016 Instruction Type:Provider Instructions for Treatment How to access health informa tion online Indication:Cough Start:15-Jul-2016 Instruction Type:Patient Education How to access health informa tion online - Detail Indication:Cough Start:15-Jul-2016 Instruction Type:Patient Education Patient Instructions Indication:Cough Start:15-Jul-2016 Instruction Type:Provider Instructions for Treatment How to access health informa tion online Indication:Rash Start:29-Feb-2016 Instruction Type:Patient Education How to access health informa tion online - Detail Indication:Rash Start:29-Feb-2016 Instruction Type:Patient Education How to access health informa tion online Indication:Rash Start:08-Feb-2016 Instruction Type:Patient Education How to access health informa tion online - Detail Indication:Rash Start:08-Feb-2016 Instruction Type:Patient Education Patient Instructions Indication:Rash Start:08-Feb-2016 Instruction Type:Provider Instructions for Treatment How to access health informa tion online Indication:Fatigue Start:29-Dec-2015 Instruction Type:Patient Education How to access health informa tion online - Detail Indication:Fatigue Start:29-Dec-2015 Instruction Type:Patient Education Patient Instructions Indication:Fatigue Start:29-Dec-2015 Instruction Type:Provider Instructions for Treatment How to access health informa tion online Indication:Hypothyroidism Start:06-Oct-2015 Instruction Type:Patient Education How to access health informa tion online - Detail Indication:Hypothyroidism Start:06-Oct-2015 Instruction Type:Patient Education Patient Instructions Indication:Hypothyroidism Start:06-Oct-2015 Instruction Type:Provider Instructions for Treatment Patient Instructions Indication:Rash Start:27-May-2014 Instruction Type:Provider Instructions for Treatment Patient Instructions Indication:Acute pharyngitis Start:27-May-2014 Instruction Type:Provider Instructions for Treatment How to access health informa tion online Indication:Acute pharyngitis Start:27-May-2014 Instruction Type:Patient Education Patient Instructions Indication:Acute sinusitis, unspecified Start:14-Nov-2013 Instruction Type:Provider Instructions for Treatment Patient Instructions Indication:Hypothyroidism Start:29-Jun-2012 Instruction Type:Provider Instructions for Treatment Patient Instructions Indication:Bronchitis Start:22-Jun-2012 Instruction Type:Provider Instructions for Treatment [facility] Work Phone: Instructions* Name Dates Details Patient Instructions Indication:Cough Start:26-Aug-2022 Instruction Type:Provider Instructions for Treatment How to Access Health Informa tion Online using Patient Portal and [employer] Apps Indication:Cough Start:26-Aug-2022 Instruction Type:Patient Education Patient Instructions Indication:Cough Start:17-Aug-2022 Instruction Type:Provider Instructions for Treatment Patient Instructions Indication:BMI 27.0-27.9,adult Start:23-May-2022 Instruction Type:Provider Instructions for Treatment How to Access Health Informa tion Online using Patient Portal and [employer]rd [employer] Apps Indication:BMI 27.0-27.9,adult Start:23-May-2022 Instruction Type:Patient Education Patient Instructions Indication:Current nonsmoker (Renamed from Current non-smoker) Start:23-Feb-2022 Instruction Type:Provider Instructions for Treatment Patient Instructions Indication:Current nonsmoker (Renamed from Current non-smoker) Start:23-Feb-2022 Instruction Type:Provider Instructions for Treatment How to Access Health Informa tion Online using Patient Portal and [employer]rd [employer] Apps Indication:Current nonsmoker (Renamed from Current non-smoker) Start:23-Feb-2022 Instruction Type:Patient Education Patient Instructions Indication:Current nonsmoker (Renamed from Current non-smoker) Start:14-Dec-2020 Instruction Type:Provider Instructions for Treatment How to Access Health Informa tion Online using Patient Portal and [employer] Apps Indication:Current nonsmoker (Renamed from Current non-smoker) Start:14-Dec-2020 Instruction Type:Patient Education How to Access Health Informa tion Online using Patient Portal and [employer] Apps Indication:Current nonsmoker (Renamed from Current non-smoker) Start:09-Jul-2020 Instruction Type:Patient Education Patient Instructions Indication:Current nonsmoker (Renamed from Current non-smoker) Start:09-Jul-2020 Instruction Type:Provider Instructions for Treatment How to access health informa tion online Indication:Current nonsmoker (Renamed from Current non-smoker) Start:11-May-2020 Instruction Type:Patient Education How to access health informa tion online - Detail Indication:Current nonsmoker (Renamed from Current non-smoker) Start:11-May-2020 Instruction Type:Patient Education Patient Instructions Indication:Current nonsmoker (Renamed from Current non-smoker) Start:11-May-2020 Instruction Type:Provider Instructions for Treatment cardiovascular counseling Indication:Coronary artery disease Start:12-Jun-2019 Instruction Type:Provider Instructions for Treatment How to access health informa tion online Indication:Current nonsmoker (Renamed from Current non-smoker) Start:12-Jun-2019 Instruction Type:Patient Education How to access health informa tion online - Detail Indication:Current nonsmoker (Renamed from Current non-smoker) Start:12-Jun-2019 Instruction Type:Patient Education Patient Instructions Indication:Current nonsmoker (Renamed from Current non-smoker) Start:12-Jun-2019 Instruction Type:Provider Instructions for Treatment How to access health informa tion online Indication:Current nonsmoker (Renamed from Current non-smoker) Start:20-Jun-2018 Instruction Type:Patient Education How to access health informa tion online - Detail Indication:Current nonsmoker (Renamed from Current non-smoker) Start:20-Jun-2018 Instruction Type:Patient Education Patient Instructions Indication:Current nonsmoker (Renamed from Current non-smoker) Start:20-Jun-2018 Instruction Type:Provider Instructions for Treatment How to access health informa tion online Indication:Current nonsmoker (Renamed from Current non-smoker) Start:04-Apr-2018 Instruction Type:Patient Education How to access health informa tion online - Detail Indication:Current nonsmoker (Renamed from Current non-smoker) Start:04-Apr-2018 Instruction Type:Patient Education Patient Instructions Indication:Current nonsmoker (Renamed from Current non-smoker) Start:04-Apr-2018 Instruction Type:Provider Instructions for Treatment How to access health informa tion online Indication:BMI 27.0-27.9,adult Start:29-Mar-2018 Instruction Type:Patient Education How to access health informa tion online - Detail Indication:BMI 27.0-27.9,adult Start:29-Mar-2018 Instruction Type:Patient Education Patient Instructions Indication:BMI 27.0-27.9,adult Start:29-Mar-2018 Instruction Type:Provider Instructions for Treatment How to access health informa tion online Indication:BMI 27.0-27.9,adult Start:23-Feb-2018 Instruction Type:Patient Education How to access health informa tion online - Detail Indication:BMI 27.0-27.9,adult Start:23-Feb-2018 Instruction Type:Patient Education Patient Instructions Indication:BMI 27.0-27.9,adult Start:23-Feb-2018 Instruction Type:Provider Instructions for Treatment Patient Instructions Indication:BMI 27.0-27.9,adult Start:23-Feb-2018 Instruction Type:Provider Instructions for Treatment How to access health informa tion online Indication:BMI 29.0-29.9,adult Start:09-Feb-2018 Instruction Type:Patient Education How to access health informa tion online - Detail Indication:BMI 29.0-29.9,adult Start:09-Feb-2018 Instruction Type:Patient Education Patient Instructions Indication:BMI 29.0-29.9,adult Start:09-Feb-2018 Instruction Type:Provider Instructions for Treatment How to access health informa tion online Indication:Sinus pressure Start:16-Nov-2017 Instruction Type:Patient Education How to access health informa tion online - Detail Indication:Sinus pressure Start:16-Nov-2017 Instruction Type:Patient Education Patient Instructions Indication:Sinus pressure Start:16-Nov-2017 Instruction Type:Provider Instructions for Treatment How to access health informa tion online Indication:Current nonsmoker (Renamed from Current non-smoker) Start:19-Oct-2017 Instruction Type:Patient Education How to access health informa tion online - Detail Indication:Current nonsmoker (Renamed from Current non-smoker) Start:19-Oct-2017 Instruction Type:Patient Education Patient Instructions Indication:Current nonsmoker (Renamed from Current non-smoker) Start:19-Oct-2017 Instruction Type:Provider Instructions for Treatment How to access health informa tion online Indication:Sinus pressure Start:25-Oct-2016 Instruction Type:Patient Education How to access health informa tion online - Detail Indication:Sinus pressure Start:25-Oct-2016 Instruction Type:Patient Education Patient Instructions Indication:Sinus pressure Start:25-Oct-2016 Instruction Type:Provider Instructions for Treatment How to access health informa tion online Indication:Cough Start:15-Jul-2016 Instruction Type:Patient Education How to access health informa tion online - Detail Indication:Cough Start:15-Jul-2016 Instruction Type:Patient Education Patient Instructions Indication:Cough Start:15-Jul-2016 Instruction Type:Provider Instructions for Treatment How to access health informa tion online Indication:Rash Start:29-Feb-2016 Instruction Type:Patient Education How to access health informa tion online - Detail Indication:Rash Start:29-Feb-2016 Instruction Type:Patient Education How to access health informa tion online Indication:Rash Start:08-Feb-2016 Instruction Type:Patient Education How to access health informa tion online - Detail Indication:Rash Start:08-Feb-2016 Instruction Type:Patient Education Patient Instructions Indication:Rash Start:08-Feb-2016 Instruction Type:Provider Instructions for Treatment How to access health informa tion online Indication:Fatigue Start:29-Dec-2015 Instruction Type:Patient Education How to access health informa tion online - Detail Indication:Fatigue Start:29-Dec-2015 Instruction Type:Patient Education Patient Instructions Indication:Fatigue Start:29-Dec-2015 Instruction Type:Provider Instructions for Treatment How to access health informa tion online Indication:Hypothyroidism Start:06-Oct-2015 Instruction Type:Patient Education How to access health informa tion online - Detail Indication:Hypothyroidism Start:06-Oct-2015 Instruction Type:Patient Education Patient Instructions Indication:Hypothyroidism Start:06-Oct-2015 Instruction Type:Provider Instructions for Treatment Patient Instructions Indication:Rash Start:27-May-2014 Instruction Type:Provider Instructions for Treatment Patient Instructions Indication:Acute pharyngitis Start:27-May-2014 Instruction Type:Provider Instructions for Treatment How to access health informa tion online Indication:Acute pharyngitis Start:27-May-2014 Instruction Type:Patient Education Patient Instructions Indication:Acute sinusitis, unspecified Start:14-Nov-2013 Instruction Type:Provider Instructions for Treatment Patient Instructions Indication:Hypothyroidism Start:29-Jun-2012 Instruction Type:Provider Instructions for Treatment Patient Instructions Indication:Bronchitis Start:22-Jun-2012 Instruction Type:Provider Instructions for Treatment [facility] Work Phone: Instructions* Name Dates Details Patient Instructions Indication:Cough Start:26-Aug-2022 Instruction Type:Provider Instructions for Treatment How to Access Health Informa tion Online using Patient Portal and [employer] Apps Indication:Cough Start:26-Aug-2022 Instruction Type:Patient Education Patient Instructions Indication:Cough Start:17-Aug-2022 Instruction Type:Provider Instructions for Treatment Patient Instructions Indication:BMI 27.0-27.9,adult Start:23-May-2022 Instruction Type:Provider Instructions for Treatment How to Access Health Informa tion Online using Patient Portal and [employer] Apps Indication:BMI 27.0-27.9,adult Start:23-May-2022 Instruction Type:Patient Education Patient Instructions Indication:Current nonsmoker (Renamed from Current non-smoker) Start:23-Feb-2022 Instruction Type:Provider Instructions for Treatment Patient Instructions Indication:Current nonsmoker (Renamed from Current non-smoker) Start:23-Feb-2022 Instruction Type:Provider Instructions for Treatment How to Access Health Informa tion Online using Patient Portal and [employer] Apps Indication:Current nonsmoker (Renamed from Current non-smoker) Start:23-Feb-2022 Instruction Type:Patient Education Patient Instructions Indication:Current nonsmoker (Renamed from Current non-smoker) Start:14-Dec-2020 Instruction Type:Provider Instructions for Treatment How to Access Health Informa tion Online using Patient Portal and [employer] Apps Indication:Current nonsmoker (Renamed from Current non-smoker) Start:14-Dec-2020 Instruction Type:Patient Education How to Access Health Informa tion Online using Patient Portal and [employer] Apps Indication:Current nonsmoker (Renamed from Current non-smoker) Start:09-Jul-2020 Instruction Type:Patient Education Patient Instructions Indication:Current nonsmoker (Renamed from Current non-smoker) Start:09-Jul-2020 Instruction Type:Provider Instructions for Treatment How to access health informa tion online Indication:Current nonsmoker (Renamed from Current non-smoker) Start:11-May-2020 Instruction Type:Patient Education How to access health informa tion online - Detail Indication:Current nonsmoker (Renamed from Current non-smoker) Start:11-May-2020 Instruction Type:Patient Education Patient Instructions Indication:Current nonsmoker (Renamed from Current non-smoker) Start:11-May-2020 Instruction Type:Provider Instructions for Treatment cardiovascular counseling Indication:Coronary artery disease Start:12-Jun-2019 Instruction Type:Provider Instructions for Treatment How to access health informa tion online Indication:Current nonsmoker (Renamed from Current non-smoker) Start:12-Jun-2019 Instruction Type:Patient Education How to access health informa tion online - Detail Indication:Current nonsmoker (Renamed from Current non-smoker) Start:12-Jun-2019 Instruction Type:Patient Education Patient Instructions Indication:Current nonsmoker (Renamed from Current non-smoker) Start:12-Jun-2019 Instruction Type:Provider Instructions for Treatment How to access health informa tion online Indication:Current nonsmoker (Renamed from Current non-smoker) Start:20-Jun-2018 Instruction Type:Patient Education How to access health informa tion online - Detail Indication:Current nonsmoker (Renamed from Current non-smoker) Start:20-Jun-2018 Instruction Type:Patient Education Patient Instructions Indication:Current nonsmoker (Renamed from Current non-smoker) Start:20-Jun-2018 Instruction Type:Provider Instructions for Treatment How to access health informa tion online Indication:Current nonsmoker (Renamed from Current non-smoker) Start:04-Apr-2018 Instruction Type:Patient Education How to access health informa tion online - Detail Indication:Current nonsmoker (Renamed from Current non-smoker) Start:04-Apr-2018 Instruction Type:Patient Education Patient Instructions Indication:Current nonsmoker (Renamed from Current non-smoker) Start:04-Apr-2018 Instruction Type:Provider Instructions for Treatment How to access health informa tion online Indication:BMI 27.0-27.9,adult Start:29-Mar-2018 Instruction Type:Patient Education How to access health informa tion online - Detail Indication:BMI 27.0-27.9,adult Start:29-Mar-2018 Instruction Type:Patient Education Patient Instructions Indication:BMI 27.0-27.9,adult Start:29-Mar-2018 Instruction Type:Provider Instructions for Treatment How to access health informa tion online Indication:BMI 27.0-27.9,adult Start:23-Feb-2018 Instruction Type:Patient Education How to access health informa tion online - Detail Indication:BMI 27.0-27.9,adult Start:23-Feb-2018 Instruction Type:Patient Education Patient Instructions Indication:BMI 27.0-27.9,adult Start:23-Feb-2018 Instruction Type:Provider Instructions for Treatment Patient Instructions Indication:BMI 27.0-27.9,adult Start:23-Feb-2018 Instruction Type:Provider Instructions for Treatment How to access health informa tion online Indication:BMI 29.0-29.9,adult Start:09-Feb-2018 Instruction Type:Patient Education How to access health informa tion online - Detail Indication:BMI 29.0-29.9,adult Start:09-Feb-2018 Instruction Type:Patient Education Patient Instructions Indication:BMI 29.0-29.9,adult Start:09-Feb-2018 Instruction Type:Provider Instructions for Treatment How to access health informa tion online Indication:Sinus pressure Start:16-Nov-2017 Instruction Type:Patient Education How to access health informa tion online - Detail Indication:Sinus pressure Start:16-Nov-2017 Instruction Type:Patient Education Patient Instructions Indication:Sinus pressure Start:16-Nov-2017 Instruction Type:Provider Instructions for Treatment How to access health informa tion online Indication:Current nonsmoker (Renamed from Current non-smoker) Start:19-Oct-2017 Instruction Type:Patient Education How to access health informa tion online - Detail Indication:Current nonsmoker (Renamed from Current non-smoker) Start:19-Oct-2017 Instruction Type:Patient Education Patient Instructions Indication:Current nonsmoker (Renamed from Current non-smoker) Start:19-Oct-2017 Instruction Type:Provider Instructions for Treatment How to access health informa tion online Indication:Sinus pressure Start:25-Oct-2016 Instruction Type:Patient Education How to access health informa tion online - Detail Indication:Sinus pressure Start:25-Oct-2016 Instruction Type:Patient Education Patient Instructions Indication:Sinus pressure Start:25-Oct-2016 Instruction Type:Provider Instructions for Treatment How to access health informa tion online Indication:Cough Start:15-Jul-2016 Instruction Type:Patient Education How to access health informa tion online - Detail Indication:Cough Start:15-Jul-2016 Instruction Type:Patient Education Patient Instructions Indication:Cough Start:15-Jul-2016 Instruction Type:Provider Instructions for Treatment How to access health informa tion online Indication:Rash Start:29-Feb-2016 Instruction Type:Patient Education How to access health informa tion online - Detail Indication:Rash Start:29-Feb-2016 Instruction Type:Patient Education How to access health informa tion online Indication:Rash Start:08-Feb-2016 Instruction Type:Patient Education How to access health informa tion online - Detail Indication:Rash Start:08-Feb-2016 Instruction Type:Patient Education Patient Instructions Indication:Rash Start:08-Feb-2016 Instruction Type:Provider Instructions for Treatment How to access health informa tion online Indication:Fatigue Start:29-Dec-2015 Instruction Type:Patient Education How to access health informa tion online - Detail Indication:Fatigue Start:29-Dec-2015 Instruction Type:Patient Education Patient Instructions Indication:Fatigue Start:29-Dec-2015 Instruction Type:Provider Instructions for Treatment How to access health informa tion online Indication:Hypothyroidism Start:06-Oct-2015 Instruction Type:Patient Education How to access health informa tion online - Detail Indication:Hypothyroidism Start:06-Oct-2015 Instruction Type:Patient Education Patient Instructions Indication:Hypothyroidism Start:06-Oct-2015 Instruction Type:Provider Instructions for Treatment Patient Instructions Indication:Rash Start:27-May-2014 Instruction Type:Provider Instructions for Treatment Patient Instructions Indication:Acute pharyngitis Start:27-May-2014 Instruction Type:Provider Instructions for Treatment How to access health informa tion online Indication:Acute pharyngitis Start:27-May-2014 Instruction Type:Patient Education Patient Instructions Indication:Acute sinusitis, unspecified Start:14-Nov-2013 Instruction Type:Provider Instructions for Treatment Patient Instructions Indication:Hypothyroidism Start:29-Jun-2012 Instruction Type:Provider Instructions for Treatment Patient Instructions Indication:Bronchitis Start:22-Jun-2012 Instruction Type:Provider Instructions for Treatment [facility] Work Phone: reason for referral (narrative)No reason for referral information available[facility]: Family History No Family History Records FoundUnknown Family Member Name Dates Details Brother 1 Comments:CAD/[place] at 59 y o Status:Active Father Comments:On heart med, lung cancer 85 yo dying Status:Active Mother Comments:Cirrhosis of liver, DM Status:Active Unknown Family Member Name Dates Details Brother 1 Comments:CAD/[place] at 59 y o Status:Active Father Comments:On heart med, lung cancer 85 yo dying Status:Active Mother Comments:Cirrhosis of liver, DM Status:Active Unknown Family Member Name Dates Details Brother 1 Comments:CAD/[place] at 59 y o Status:Active Father Comments:On heart med, lung cancer 85 yo dying Status:Active Mother Comments:Cirrhosis of liver, DM Status:Active Unknown Family Member Name Dates Details Brother 1 Comments:CAD/[place] at 59 y o Status:Active Father Comments:On heart med, lung cancer 85 yo dying Status:Active Mother Comments:Cirrhosis of liver, DM Status:Active Unknown Family Member Name Dates Details Brother 1 Comments:CAD/[place] at 59 y o Status:Active Father Comments:On heart med, lung cancer 85 yo dying Status:Active Mother Comments:Cirrhosis of liver, DM Status:Active Unknown Family Member Name Dates Details Brother 1 Comments:CAD/[place] at 59 y o Status:Active Father Comments:On heart med, lung cancer 85 yo dying Status:Active Mother Comments:Cirrhosis of liver, DM Status:Active Unknown Family Member Name Dates Details Brother 1 Comments:CAD/[place] at 59 y o Status:Active Father Comments:On heart med, lung cancer 85 yo dying Status:Active Mother Comments:Cirrhosis of liver, DM Status:Active Unknown Family Member Name Dates Details Brother 1 Comments:CAD/[place] at 59 y o Status:Active Father Comments:On heart med, lung cancer 85 yo dying Status:Active Mother Comments:Cirrhosis of liver, DM Status:Active Unknown Family Member Name Dates Details Brother 1 Comments:CAD/[place] at 59 y o Status:Active Father Comments:On heart med, lung cancer 85 yo dying Status:Active Mother Comments:Cirrhosis of liver, DM Status:Active Unknown Family Member Name Dates Details Brother 1 Comments:CAD/[place] at 59 y o Status:Active Father Comments:On heart med, lung cancer 85 yo dying Status:Active Mother Comments:Cirrhosis of liver, DM Status:Active Unknown Family Member Name Dates Details Brother 1 Comments:CAD/[place] at 59 y o Status:Active Father Comments:On heart med, lung cancer 85 yo dying Status:Active Mother Comments:Cirrhosis of liver, DM Status:Active Unknown Family Member Name Dates Details Brother 1 Comments:CAD/[place] at 59 y o Status:Active Father Comments:On heart med, lung cancer 85 yo dying Status:Active Mother Comments:Cirrhosis of liver, DM Status:Active Unknown Family Member Name Dates Details Brother 1 Comments:CAD/[place] at 59 y o Status:Active Father Comments:On heart med, lung cancer 85 yo dying Status:Active Mother Comments:Cirrhosis of liver, DM Status:Active Unknown Family Member Name Dates Details Brother 1 Comments:CAD/[place] at 59 y o Status:Active Father Comments:On heart med, lung cancer 85 yo dying Status:Active Mother Comments:Cirrhosis of liver, DM Status:Active Unknown Family Member Name Dates Details Brother 1 Comments:CAD/[place] at 59 y o Status:Active Father Comments:On heart med, lung cancer 85 yo dying Status:Active Mother Comments:Cirrhosis of liver, DM Status:Active Unknown Family Member Name Dates Details Brother 1 Comments:CAD/[place] at 59 y o Status:Active Father Comments:On heart med, lung cancer 85 yo dying Status:Active Mother Comments:Cirrhosis of liver, DM Status:Active Unknown Family Member Name Dates Details Brother 1 Comments:CAD/[place] at 59 y o Status:Active Father Comments:On heart med, lung cancer 85 yo dying Status:Active Mother Comments:Cirrhosis of liver, DM Status:Active Unknown Family Member Name Dates Details Brother 1 Comments:CAD/[place] at 59 y o Status:Active Father Comments:On heart med, lung cancer 85 yo dying Status:Active Mother Comments:Cirrhosis of liver, DM Status:Active Unknown Family Member Name Dates Details Brother 1 Comments:CAD/[place] at 59 y o Status:Active Father Comments:On heart med, lung cancer 85 yo dying Status:Active Mother Comments:Cirrhosis of liver, DM Status:Active Unknown Family Member Name Dates Details Brother 1 Comments:CAD/[place] at 59 y o Status:Active Father Comments:On heart med, lung cancer 85 yo dying Status:Active Mother Comments:Cirrhosis of liver, DM Status:Active Unknown Family Member Name Dates Details Brother 1 Comments:CAD/[place] at 59 y o Status:Active Father Comments:On heart med, lung cancer 85 yo dying Status:Active Mother Comments:Cirrhosis of liver, DM Status:Active Relationship Condition Age at Onset Recorded Date/T halie father Atrial fibrillation Unknown brother Myocardial infarction 59 Unknown Family Member Name Dates Details Brother 1 Comments:CAD/[place] at 59 y o Status:Active Father Comments:On heart med, lung cancer 85 yo dying Status:Active Mother Comments:Cirrhosis of liver, DM Status:Active Unknown Family Member Name Dates Details Brother 1 Comments:CAD/[place] at 59 y o Status:Active Father Comments:On heart med, lung cancer 85 yo dying Status:Active Mother Comments:Cirrhosis of liver, DM Status:Active Unknown Family Member Name Dates Details Brother 1 Comments:CAD/[place] at 59 y o Status:Active Father Comments:On heart med, lung cancer 85 yo dying Status:Active Mother Comments:Cirrhosis of liver, DM Status:Active Instructions Name Dates Details Current nonsmoker (Renamed f rom Current non-smoker) : How to access health information online Indication:Current nonsmoker (Renamed from Current non-smoker) Current nonsmoker (Renamed f rom Current non-smoker) : How to access health information online - Detail Indication:Current nonsmoker (Renamed from Current non-smoker) Current nonsmoker (Renamed f rom Current non-smoker) : Patient Instructions Indication:Current nonsmoker (Renamed from Current non-smoker) BMI 27.0-27.9,adult : How to access health information online Indication:BMI 27.0-27.9,adult BMI 27.0-27.9,adult : How to access health information online - Detail Indication:BMI 27.0-27.9,adult BMI 27.0-27.9,adult : Patien t Instructions Indication:BMI 27.0-27.9,adult BMI 29.0-29.9,adult : How to access health information online Indication:BMI 29.0-29.9,adult BMI 29.0-29.9,adult : How to access health information online - Detail Indication:BMI 29.0-29.9,adult BMI 29.0-29.9,adult : Patien t Instructions Indication:BMI 29.0-29.9,adult Sinus pressure : How to acce ss health information online Indication:Sinus pressure Sinus pressure : How to acce ss health information online - Detail Indication:Sinus pressure Sinus pressure : Patient Ins tructions Indication:Sinus pressure Cough : How to access health information online Indication:Cough Cough : How to access health information online - Detail Indication:Cough Cough : Patient Instructions Indication:Cough Rash : How to access health information online Indication:Rash Rash : How to access health information online - Detail Indication:Rash Rash : Patient Instructions Indication:Rash Fatigue : How to access heal th information online Indication:Fatigue Fatigue : How to access heal th information online - Detail Indication:Fatigue Fatigue : Patient Instructio ns Indication:Fatigue Hypothyroidism : How to acce ss health information online Indication:Hypothyroidism Hypothyroidism : How to acce ss health information online - Detail Indication:Hypothyroidism Hypothyroidism : Patient Ins tructions Indication:Hypothyroidism Acute pharyngitis : Patient Instructions Indication:Acute pharyngitis Acute pharyngitis : How to a ccess health information online Indication:Acute pharyngitis Acute sinusitis, unspecified : Patient Instructions Indication:Acute sinusitis, unspecified Bronchitis : Patient Instruc tions Indication:Bronchitis Name Dates Details Current nonsmoker (Renamed f rom Current non-smoker) : How to access health information online Indication:Current nonsmoker (Renamed from Current non-smoker) Current nonsmoker (Renamed f rom Current non-smoker) : How to access health information online - Detail Indication:Current nonsmoker (Renamed from Current non-smoker) Current nonsmoker (Renamed f rom Current non-smoker) : Patient Instructions Indication:Current nonsmoker (Renamed from Current non-smoker) BMI 27.0-27.9,adult : How to access health information online Indication:BMI 27.0-27.9,adult BMI 27.0-27.9,adult : How to access health information online - Detail Indication:BMI 27.0-27.9,adult BMI 27.0-27.9,adult : Patien t Instructions Indication:BMI 27.0-27.9,adult BMI 29.0-29.9,adult : How to access health information online Indication:BMI 29.0-29.9,adult BMI 29.0-29.9,adult : How to access health information online - Detail Indication:BMI 29.0-29.9,adult BMI 29.0-29.9,adult : Patien t Instructions Indication:BMI 29.0-29.9,adult Sinus pressure : How to acce ss health information online Indication:Sinus pressure Sinus pressure : How to acce ss health information online - Detail Indication:Sinus pressure Sinus pressure : Patient Ins tructions Indication:Sinus pressure Cough : How to access health information online Indication:Cough Cough : How to access health information online - Detail Indication:Cough Cough : Patient Instructions Indication:Cough Rash : How to access health information online Indication:Rash Rash : How to access health information online - Detail Indication:Rash Rash : Patient Instructions Indication:Rash Fatigue : How to access heal th information online Indication:Fatigue Fatigue : How to access heal th information online - Detail Indication:Fatigue Fatigue : Patient Instructio ns Indication:Fatigue Hypothyroidism : How to acce ss health information online Indication:Hypothyroidism Hypothyroidism : How to acce ss health information online - Detail Indication:Hypothyroidism Hypothyroidism : Patient Ins tructions Indication:Hypothyroidism Acute pharyngitis : Patient Instructions Indication:Acute pharyngitis Acute pharyngitis : How to a ccess health information online Indication:Acute pharyngitis Acute sinusitis, unspecified : Patient Instructions Indication:Acute sinusitis, unspecified Bronchitis : Patient Instruc tions Indication:Bronchitis Name Dates Details Current nonsmoker (Renamed f rom Current non-smoker) : How to access health information online Indication:Current nonsmoker (Renamed from Current non-smoker) Current nonsmoker (Renamed f rom Current non-smoker) : How to access health information online - Detail Indication:Current nonsmoker (Renamed from Current non-smoker) Current nonsmoker (Renamed f rom Current non-smoker) : Patient Instructions Indication:Current nonsmoker (Renamed from Current non-smoker) BMI 27.0-27.9,adult : How to access health information online Indication:BMI 27.0-27.9,adult BMI 27.0-27.9,adult : How to access health information online - Detail Indication:BMI 27.0-27.9,adult BMI 27.0-27.9,adult : Patien t Instructions Indication:BMI 27.0-27.9,adult BMI 29.0-29.9,adult : How to access health information online Indication:BMI 29.0-29.9,adult BMI 29.0-29.9,adult : How to access health information online - Detail Indication:BMI 29.0-29.9,adult BMI 29.0-29.9,adult : Patien t Instructions Indication:BMI 29.0-29.9,adult Sinus pressure : How to acce ss health information online Indication:Sinus pressure Sinus pressure : How to acce ss health information online - Detail Indication:Sinus pressure Sinus pressure : Patient Ins tructions Indication:Sinus pressure Cough : How to access health information online Indication:Cough Cough : How to access health information online - Detail Indication:Cough Cough : Patient Instructions Indication:Cough Rash : How to access health information online Indication:Rash Rash : How to access health information online - Detail Indication:Rash Rash : Patient Instructions Indication:Rash Fatigue : How to access heal th information online Indication:Fatigue Fatigue : How to access heal th information online - Detail Indication:Fatigue Fatigue : Patient Instructio ns Indication:Fatigue Hypothyroidism : How to acce ss health information online Indication:Hypothyroidism Hypothyroidism : How to acce ss health information online - Detail Indication:Hypothyroidism Hypothyroidism : Patient Ins tructions Indication:Hypothyroidism Acute pharyngitis : Patient Instructions Indication:Acute pharyngitis Acute pharyngitis : How to a ccess health information online Indication:Acute pharyngitis Acute sinusitis, unspecified : Patient Instructions Indication:Acute sinusitis, unspecified Bronchitis : Patient Instruc tions Indication:Bronchitis Name Dates Details How to access health informa tion online Indication:Current nonsmoker (Renamed from Current non-smoker) Start:20-Jun-2018 Instruction Type:Patient Education How to access health informa tion online - Detail Indication:Current nonsmoker (Renamed from Current non-smoker) Start:20-Jun-2018 Instruction Type:Patient Education Patient Instructions Indication:Current nonsmoker (Renamed from Current non-smoker) Start:20-Jun-2018 Instruction Type:Provider Instructions for Treatment How to access health informa tion online Indication:Current nonsmoker (Renamed from Current non-smoker) Start:04-Apr-2018 Instruction Type:Patient Education How to access health informa tion online - Detail Indication:Current nonsmoker (Renamed from Current non-smoker) Start:04-Apr-2018 Instruction Type:Patient Education Patient Instructions Indication:Current nonsmoker (Renamed from Current non-smoker) Start:04-Apr-2018 Instruction Type:Provider Instructions for Treatment How to access health informa tion online Indication:BMI 27.0-27.9,adult Start:29-Mar-2018 Instruction Type:Patient Education How to access health informa tion online - Detail Indication:BMI 27.0-27.9,adult Start:29-Mar-2018 Instruction Type:Patient Education Patient Instructions Indication:BMI 27.0-27.9,adult Start:29-Mar-2018 Instruction Type:Provider Instructions for Treatment How to access health informa tion online Indication:BMI 27.0-27.9,adult Start:23-Feb-2018 Instruction Type:Patient Education How to access health informa tion online - Detail Indication:BMI 27.0-27.9,adult Start:23-Feb-2018 Instruction Type:Patient Education Patient Instructions Indication:BMI 27.0-27.9,adult Start:23-Feb-2018 Instruction Type:Provider Instructions for Treatment How to access health informa tion online Indication:BMI 29.0-29.9,adult Start:09-Feb-2018 Instruction Type:Patient Education How to access health informa tion online - Detail Indication:BMI 29.0-29.9,adult Start:09-Feb-2018 Instruction Type:Patient Education Patient Instructions Indication:BMI 29.0-29.9,adult Start:09-Feb-2018 Instruction Type:Provider Instructions for Treatment How to access health informa tion online Indication:Sinus pressure Start:16-Nov-2017 Instruction Type:Patient Education How to access health informa tion online - Detail Indication:Sinus pressure Start:16-Nov-2017 Instruction Type:Patient Education Patient Instructions Indication:Sinus pressure Start:16-Nov-2017 Instruction Type:Provider Instructions for Treatment How to access health informa tion online Indication:Current nonsmoker (Renamed from Current non-smoker) Start:19-Oct-2017 Instruction Type:Patient Education How to access health informa tion online - Detail Indication:Current nonsmoker (Renamed from Current non-smoker) Start:19-Oct-2017 Instruction Type:Patient Education Patient Instructions Indication:Current nonsmoker (Renamed from Current non-smoker) Start:19-Oct-2017 Instruction Type:Provider Instructions for Treatment How to access health informa tion online Indication:Sinus pressure Start:25-Oct-2016 Instruction Type:Patient Education How to access health informa tion online - Detail Indication:Sinus pressure Start:25-Oct-2016 Instruction Type:Patient Education Patient Instructions Indication:Sinus pressure Start:25-Oct-2016 Instruction Type:Provider Instructions for Treatment How to access health informa tion online Indication:Cough Start:15-Jul-2016 Instruction Type:Patient Education How to access health informa tion online - Detail Indication:Cough Start:15-Jul-2016 Instruction Type:Patient Education Patient Instructions Indication:Cough Start:15-Jul-2016 Instruction Type:Provider Instructions for Treatment How to access health informa tion online Indication:Rash Start:29-Feb-2016 Instruction Type:Patient Education How to access health informa tion online - Detail Indication:Rash Start:29-Feb-2016 Instruction Type:Patient Education How to access health informa tion online Indication:Rash Start:08-Feb-2016 Instruction Type:Patient Education How to access health informa tion online - Detail Indication:Rash Start:08-Feb-2016 Instruction Type:Patient Education Patient Instructions Indication:Rash Start:08-Feb-2016 Instruction Type:Provider Instructions for Treatment How to access health informa tion online Indication:Fatigue Start:29-Dec-2015 Instruction Type:Patient Education How to access health informa tion online - Detail Indication:Fatigue Start:29-Dec-2015 Instruction Type:Patient Education Patient Instructions Indication:Fatigue Start:29-Dec-2015 Instruction Type:Provider Instructions for Treatment How to access health informa tion online Indication:Hypothyroidism Start:06-Oct-2015 Instruction Type:Patient Education How to access health informa tion online - Detail Indication:Hypothyroidism Start:06-Oct-2015 Instruction Type:Patient Education Patient Instructions Indication:Hypothyroidism Start:06-Oct-2015 Instruction Type:Provider Instructions for Treatment Patient Instructions Indication:Rash Start:27-May-2014 Instruction Type:Provider Instructions for Treatment Patient Instructions Indication:Acute pharyngitis Start:27-May-2014 Instruction Type:Provider Instructions for Treatment How to access health informa tion online Indication:Acute pharyngitis Start:27-May-2014 Instruction Type:Patient Education Patient Instructions Indication:Acute sinusitis, unspecified Start:14-Nov-2013 Instruction Type:Provider Instructions for Treatment Patient Instructions Indication:Hypothyroidism Start:29-Jun-2012 Instruction Type:Provider Instructions for Treatment Patient Instructions Indication:Bronchitis Start:22-Jun-2012 Instruction Type:Provider Instructions for Treatment Name Dates Details How to access health informa tion online Indication:Current nonsmoker (Renamed from Current non-smoker) Start:20-Jun-2018 Instruction Type:Patient Education How to access health informa tion online - Detail Indication:Current nonsmoker (Renamed from Current non-smoker) Start:20-Jun-2018 Instruction Type:Patient Education Patient Instructions Indication:Current nonsmoker (Renamed from Current non-smoker) Start:20-Jun-2018 Instruction Type:Provider Instructions for Treatment How to access health informa tion online Indication:Current nonsmoker (Renamed from Current non-smoker) Start:04-Apr-2018 Instruction Type:Patient Education How to access health informa tion online - Detail Indication:Current nonsmoker (Renamed from Current non-smoker) Start:04-Apr-2018 Instruction Type:Patient Education Patient Instructions Indication:Current nonsmoker (Renamed from Current non-smoker) Start:04-Apr-2018 Instruction Type:Provider Instructions for Treatment How to access health informa tion online Indication:BMI 27.0-27.9,adult Start:29-Mar-2018 Instruction Type:Patient Education How to access health informa tion online - Detail Indication:BMI 27.0-27.9,adult Start:29-Mar-2018 Instruction Type:Patient Education Patient Instructions Indication:BMI 27.0-27.9,adult Start:29-Mar-2018 Instruction Type:Provider Instructions for Treatment How to access health informa tion online Indication:BMI 27.0-27.9,adult Start:23-Feb-2018 Instruction Type:Patient Education How to access health informa tion online - Detail Indication:BMI 27.0-27.9,adult Start:23-Feb-2018 Instruction Type:Patient Education Patient Instructions Indication:BMI 27.0-27.9,adult Start:23-Feb-2018 Instruction Type:Provider Instructions for Treatment How to access health informa tion online Indication:BMI 29.0-29.9,adult Start:09-Feb-2018 Instruction Type:Patient Education How to access health informa tion online - Detail Indication:BMI 29.0-29.9,adult Start:09-Feb-2018 Instruction Type:Patient Education Patient Instructions Indication:BMI 29.0-29.9,adult Start:09-Feb-2018 Instruction Type:Provider Instructions for Treatment How to access health informa tion online Indication:Sinus pressure Start:16-Nov-2017 Instruction Type:Patient Education How to access health informa tion online - Detail Indication:Sinus pressure Start:16-Nov-2017 Instruction Type:Patient Education Patient Instructions Indication:Sinus pressure Start:16-Nov-2017 Instruction Type:Provider Instructions for Treatment How to access health informa tion online Indication:Current nonsmoker (Renamed from Current non-smoker) Start:19-Oct-2017 Instruction Type:Patient Education How to access health informa tion online - Detail Indication:Current nonsmoker (Renamed from Current non-smoker) Start:19-Oct-2017 Instruction Type:Patient Education Patient Instructions Indication:Current nonsmoker (Renamed from Current non-smoker) Start:19-Oct-2017 Instruction Type:Provider Instructions for Treatment How to access health informa tion online Indication:Sinus pressure Start:25-Oct-2016 Instruction Type:Patient Education How to access health informa tion online - Detail Indication:Sinus pressure Start:25-Oct-2016 Instruction Type:Patient Education Patient Instructions Indication:Sinus pressure Start:25-Oct-2016 Instruction Type:Provider Instructions for Treatment How to access health informa tion online Indication:Cough Start:15-Jul-2016 Instruction Type:Patient Education How to access health informa tion online - Detail Indication:Cough Start:15-Jul-2016 Instruction Type:Patient Education Patient Instructions Indication:Cough Start:15-Jul-2016 Instruction Type:Provider Instructions for Treatment How to access health informa tion online Indication:Rash Start:29-Feb-2016 Instruction Type:Patient Education How to access health informa tion online - Detail Indication:Rash Start:29-Feb-2016 Instruction Type:Patient Education How to access health informa tion online Indication:Rash Start:08-Feb-2016 Instruction Type:Patient Education How to access health informa tion online - Detail Indication:Rash Start:08-Feb-2016 Instruction Type:Patient Education Patient Instructions Indication:Rash Start:08-Feb-2016 Instruction Type:Provider Instructions for Treatment How to access health informa tion online Indication:Fatigue Start:29-Dec-2015 Instruction Type:Patient Education How to access health informa tion online - Detail Indication:Fatigue Start:29-Dec-2015 Instruction Type:Patient Education Patient Instructions Indication:Fatigue Start:29-Dec-2015 Instruction Type:Provider Instructions for Treatment How to access health informa tion online Indication:Hypothyroidism Start:06-Oct-2015 Instruction Type:Patient Education How to access health informa tion online - Detail Indication:Hypothyroidism Start:06-Oct-2015 Instruction Type:Patient Education Patient Instructions Indication:Hypothyroidism Start:06-Oct-2015 Instruction Type:Provider Instructions for Treatment Patient Instructions Indication:Rash Start:27-May-2014 Instruction Type:Provider Instructions for Treatment Patient Instructions Indication:Acute pharyngitis Start:27-May-2014 Instruction Type:Provider Instructions for Treatment How to access health informa tion online Indication:Acute pharyngitis Start:27-May-2014 Instruction Type:Patient Education Patient Instructions Indication:Acute sinusitis, unspecified Start:14-Nov-2013 Instruction Type:Provider Instructions for Treatment Patient Instructions Indication:Hypothyroidism Start:29-Jun-2012 Instruction Type:Provider Instructions for Treatment Patient Instructions Indication:Bronchitis Start:22-Jun-2012 Instruction Type:Provider Instructions for Treatment Name Dates Details How to access health informa tion online Indication:Current nonsmoker (Renamed from Current non-smoker) Start:20-Jun-2018 Instruction Type:Patient Education How to access health informa tion online - Detail Indication:Current nonsmoker (Renamed from Current non-smoker) Start:20-Jun-2018 Instruction Type:Patient Education Patient Instructions Indication:Current nonsmoker (Renamed from Current non-smoker) Start:20-Jun-2018 Instruction Type:Provider Instructions for Treatment How to access health informa tion online Indication:Current nonsmoker (Renamed from Current non-smoker) Start:04-Apr-2018 Instruction Type:Patient Education How to access health informa tion online - Detail Indication:Current nonsmoker (Renamed from Current non-smoker) Start:04-Apr-2018 Instruction Type:Patient Education Patient Instructions Indication:Current nonsmoker (Renamed from Current non-smoker) Start:04-Apr-2018 Instruction Type:Provider Instructions for Treatment How to access health informa tion online Indication:BMI 27.0-27.9,adult Start:29-Mar-2018 Instruction Type:Patient Education How to access health informa tion online - Detail Indication:BMI 27.0-27.9,adult Start:29-Mar-2018 Instruction Type:Patient Education Patient Instructions Indication:BMI 27.0-27.9,adult Start:29-Mar-2018 Instruction Type:Provider Instructions for Treatment How to access health informa tion online Indication:BMI 27.0-27.9,adult Start:23-Feb-2018 Instruction Type:Patient Education How to access health informa tion online - Detail Indication:BMI 27.0-27.9,adult Start:23-Feb-2018 Instruction Type:Patient Education Patient Instructions Indication:BMI 27.0-27.9,adult Start:23-Feb-2018 Instruction Type:Provider Instructions for Treatment How to access health informa tion online Indication:BMI 29.0-29.9,adult Start:09-Feb-2018 Instruction Type:Patient Education How to access health informa tion online - Detail Indication:BMI 29.0-29.9,adult Start:09-Feb-2018 Instruction Type:Patient Education Patient Instructions Indication:BMI 29.0-29.9,adult Start:09-Feb-2018 Instruction Type:Provider Instructions for Treatment How to access health informa tion online Indication:Sinus pressure Start:16-Nov-2017 Instruction Type:Patient Education How to access health informa tion online - Detail Indication:Sinus pressure Start:16-Nov-2017 Instruction Type:Patient Education Patient Instructions Indication:Sinus pressure Start:16-Nov-2017 Instruction Type:Provider Instructions for Treatment How to access health informa tion online Indication:Current nonsmoker (Renamed from Current non-smoker) Start:19-Oct-2017 Instruction Type:Patient Education How to access health informa tion online - Detail Indication:Current nonsmoker (Renamed from Current non-smoker) Start:19-Oct-2017 Instruction Type:Patient Education Patient Instructions Indication:Current nonsmoker (Renamed from Current non-smoker) Start:19-Oct-2017 Instruction Type:Provider Instructions for Treatment How to access health informa tion online Indication:Sinus pressure Start:25-Oct-2016 Instruction Type:Patient Education How to access health informa tion online - Detail Indication:Sinus pressure Start:25-Oct-2016 Instruction Type:Patient Education Patient Instructions Indication:Sinus pressure Start:25-Oct-2016 Instruction Type:Provider Instructions for Treatment How to access health informa tion online Indication:Cough Start:15-Jul-2016 Instruction Type:Patient Education How to access health informa tion online - Detail Indication:Cough Start:15-Jul-2016 Instruction Type:Patient Education Patient Instructions Indication:Cough Start:15-Jul-2016 Instruction Type:Provider Instructions for Treatment How to access health informa tion online Indication:Rash Start:29-Feb-2016 Instruction Type:Patient Education How to access health informa tion online - Detail Indication:Rash Start:29-Feb-2016 Instruction Type:Patient Education How to access health informa tion online Indication:Rash Start:08-Feb-2016 Instruction Type:Patient Education How to access health informa tion online - Detail Indication:Rash Start:08-Feb-2016 Instruction Type:Patient Education Patient Instructions Indication:Rash Start:08-Feb-2016 Instruction Type:Provider Instructions for Treatment How to access health informa tion online Indication:Fatigue Start:29-Dec-2015 Instruction Type:Patient Education How to access health informa tion online - Detail Indication:Fatigue Start:29-Dec-2015 Instruction Type:Patient Education Patient Instructions Indication:Fatigue Start:29-Dec-2015 Instruction Type:Provider Instructions for Treatment How to access health informa tion online Indication:Hypothyroidism Start:06-Oct-2015 Instruction Type:Patient Education How to access health informa tion online - Detail Indication:Hypothyroidism Start:06-Oct-2015 Instruction Type:Patient Education Patient Instructions Indication:Hypothyroidism Start:06-Oct-2015 Instruction Type:Provider Instructions for Treatment Patient Instructions Indication:Rash Start:27-May-2014 Instruction Type:Provider Instructions for Treatment Patient Instructions Indication:Acute pharyngitis Start:27-May-2014 Instruction Type:Provider Instructions for Treatment How to access health informa tion online Indication:Acute pharyngitis Start:27-May-2014 Instruction Type:Patient Education Patient Instructions Indication:Acute sinusitis, unspecified Start:14-Nov-2013 Instruction Type:Provider Instructions for Treatment Patient Instructions Indication:Hypothyroidism Start:29-Jun-2012 Instruction Type:Provider Instructions for Treatment Patient Instructions Indication:Bronchitis Start:22-Jun-2012 Instruction Type:Provider Instructions for Treatment Name Dates Details cardiovascular counseling Indication:Coronary artery disease Start:12-Jun-2019 Instruction Type:Provider Instructions for Treatment How to access health informa tion online Indication:Current nonsmoker (Renamed from Current non-smoker) Start:12-Jun-2019 Instruction Type:Patient Education How to access health informa tion online - Detail Indication:Current nonsmoker (Renamed from Current non-smoker) Start:12-Jun-2019 Instruction Type:Patient Education Patient Instructions Indication:Current nonsmoker (Renamed from Current non-smoker) Start:12-Jun-2019 Instruction Type:Provider Instructions for Treatment How to access health informa tion online Indication:Current nonsmoker (Renamed from Current non-smoker) Start:20-Jun-2018 Instruction Type:Patient Education How to access health informa tion online - Detail Indication:Current nonsmoker (Renamed from Current non-smoker) Start:20-Jun-2018 Instruction Type:Patient Education Patient Instructions Indication:Current nonsmoker (Renamed from Current non-smoker) Start:20-Jun-2018 Instruction Type:Provider Instructions for Treatment How to access health informa tion online Indication:Current nonsmoker (Renamed from Current non-smoker) Start:04-Apr-2018 Instruction Type:Patient Education How to access health informa tion online - Detail Indication:Current nonsmoker (Renamed from Current non-smoker) Start:04-Apr-2018 Instruction Type:Patient Education Patient Instructions Indication:Current nonsmoker (Renamed from Current non-smoker) Start:04-Apr-2018 Instruction Type:Provider Instructions for Treatment How to access health informa tion online Indication:BMI 27.0-27.9,adult Start:29-Mar-2018 Instruction Type:Patient Education How to access health informa tion online - Detail Indication:BMI 27.0-27.9,adult Start:29-Mar-2018 Instruction Type:Patient Education Patient Instructions Indication:BMI 27.0-27.9,adult Start:29-Mar-2018 Instruction Type:Provider Instructions for Treatment How to access health informa tion online Indication:BMI 27.0-27.9,adult Start:23-Feb-2018 Instruction Type:Patient Education How to access health informa tion online - Detail Indication:BMI 27.0-27.9,adult Start:23-Feb-2018 Instruction Type:Patient Education Patient Instructions Indication:BMI 27.0-27.9,adult Start:23-Feb-2018 Instruction Type:Provider Instructions for Treatment How to access health informa tion online Indication:BMI 29.0-29.9,adult Start:09-Feb-2018 Instruction Type:Patient Education How to access health informa tion online - Detail Indication:BMI 29.0-29.9,adult Start:09-Feb-2018 Instruction Type:Patient Education Patient Instructions Indication:BMI 29.0-29.9,adult Start:09-Feb-2018 Instruction Type:Provider Instructions for Treatment How to access health informa tion online Indication:Sinus pressure Start:16-Nov-2017 Instruction Type:Patient Education How to access health informa tion online - Detail Indication:Sinus pressure Start:16-Nov-2017 Instruction Type:Patient Education Patient Instructions Indication:Sinus pressure Start:16-Nov-2017 Instruction Type:Provider Instructions for Treatment How to access health informa tion online Indication:Current nonsmoker (Renamed from Current non-smoker) Start:19-Oct-2017 Instruction Type:Patient Education How to access health informa tion online - Detail Indication:Current nonsmoker (Renamed from Current non-smoker) Start:19-Oct-2017 Instruction Type:Patient Education Patient Instructions Indication:Current nonsmoker (Renamed from Current non-smoker) Start:19-Oct-2017 Instruction Type:Provider Instructions for Treatment How to access health informa tion online Indication:Sinus pressure Start:25-Oct-2016 Instruction Type:Patient Education How to access health informa tion online - Detail Indication:Sinus pressure Start:25-Oct-2016 Instruction Type:Patient Education Patient Instructions Indication:Sinus pressure Start:25-Oct-2016 Instruction Type:Provider Instructions for Treatment How to access health informa tion online Indication:Cough Start:15-Jul-2016 Instruction Type:Patient Education How to access health informa tion online - Detail Indication:Cough Start:15-Jul-2016 Instruction Type:Patient Education Patient Instructions Indication:Cough Start:15-Jul-2016 Instruction Type:Provider Instructions for Treatment How to access health informa tion online Indication:Rash Start:29-Feb-2016 Instruction Type:Patient Education How to access health informa tion online - Detail Indication:Rash Start:29-Feb-2016 Instruction Type:Patient Education How to access health informa tion online Indication:Rash Start:08-Feb-2016 Instruction Type:Patient Education How to access health informa tion online - Detail Indication:Rash Start:08-Feb-2016 Instruction Type:Patient Education Patient Instructions Indication:Rash Start:08-Feb-2016 Instruction Type:Provider Instructions for Treatment How to access health informa tion online Indication:Fatigue Start:29-Dec-2015 Instruction Type:Patient Education How to access health informa tion online - Detail Indication:Fatigue Start:29-Dec-2015 Instruction Type:Patient Education Patient Instructions Indication:Fatigue Start:29-Dec-2015 Instruction Type:Provider Instructions for Treatment How to access health informa tion online Indication:Hypothyroidism Start:06-Oct-2015 Instruction Type:Patient Education How to access health informa tion online - Detail Indication:Hypothyroidism Start:06-Oct-2015 Instruction Type:Patient Education Patient Instructions Indication:Hypothyroidism Start:06-Oct-2015 Instruction Type:Provider Instructions for Treatment Patient Instructions Indication:Rash Start:27-May-2014 Instruction Type:Provider Instructions for Treatment Patient Instructions Indication:Acute pharyngitis Start:27-May-2014 Instruction Type:Provider Instructions for Treatment How to access health informa tion online Indication:Acute pharyngitis Start:27-May-2014 Instruction Type:Patient Education Patient Instructions Indication:Acute sinusitis, unspecified Start:14-Nov-2013 Instruction Type:Provider Instructions for Treatment Patient Instructions Indication:Hypothyroidism Start:29-Jun-2012 Instruction Type:Provider Instructions for Treatment Patient Instructions Indication:Bronchitis Start:22-Jun-2012 Instruction Type:Provider Instructions for Treatment Name Dates Details cardiovascular counseling Indication:Coronary artery disease Start:12-Jun-2019 Instruction Type:Provider Instructions for Treatment How to access health informa tion online Indication:Current nonsmoker (Renamed from Current non-smoker) Start:12-Jun-2019 Instruction Type:Patient Education How to access health informa tion online - Detail Indication:Current nonsmoker (Renamed from Current non-smoker) Start:12-Jun-2019 Instruction Type:Patient Education Patient Instructions Indication:Current nonsmoker (Renamed from Current non-smoker) Start:12-Jun-2019 Instruction Type:Provider Instructions for Treatment How to access health informa tion online Indication:Current nonsmoker (Renamed from Current non-smoker) Start:20-Jun-2018 Instruction Type:Patient Education How to access health informa tion online - Detail Indication:Current nonsmoker (Renamed from Current non-smoker) Start:20-Jun-2018 Instruction Type:Patient Education Patient Instructions Indication:Current nonsmoker (Renamed from Current non-smoker) Start:20-Jun-2018 Instruction Type:Provider Instructions for Treatment How to access health informa tion online Indication:Current nonsmoker (Renamed from Current non-smoker) Start:04-Apr-2018 Instruction Type:Patient Education How to access health informa tion online - Detail Indication:Current nonsmoker (Renamed from Current non-smoker) Start:04-Apr-2018 Instruction Type:Patient Education Patient Instructions Indication:Current nonsmoker (Renamed from Current non-smoker) Start:04-Apr-2018 Instruction Type:Provider Instructions for Treatment How to access health informa tion online Indication:BMI 27.0-27.9,adult Start:29-Mar-2018 Instruction Type:Patient Education How to access health informa tion online - Detail Indication:BMI 27.0-27.9,adult Start:29-Mar-2018 Instruction Type:Patient Education Patient Instructions Indication:BMI 27.0-27.9,adult Start:29-Mar-2018 Instruction Type:Provider Instructions for Treatment How to access health informa tion online Indication:BMI 27.0-27.9,adult Start:23-Feb-2018 Instruction Type:Patient Education How to access health informa tion online - Detail Indication:BMI 27.0-27.9,adult Start:23-Feb-2018 Instruction Type:Patient Education Patient Instructions Indication:BMI 27.0-27.9,adult Start:23-Feb-2018 Instruction Type:Provider Instructions for Treatment How to access health informa tion online Indication:BMI 29.0-29.9,adult Start:09-Feb-2018 Instruction Type:Patient Education How to access health informa tion online - Detail Indication:BMI 29.0-29.9,adult Start:09-Feb-2018 Instruction Type:Patient Education Patient Instructions Indication:BMI 29.0-29.9,adult Start:09-Feb-2018 Instruction Type:Provider Instructions for Treatment How to access health informa tion online Indication:Sinus pressure Start:16-Nov-2017 Instruction Type:Patient Education How to access health informa tion online - Detail Indication:Sinus pressure Start:16-Nov-2017 Instruction Type:Patient Education Patient Instructions Indication:Sinus pressure Start:16-Nov-2017 Instruction Type:Provider Instructions for Treatment How to access health informa tion online Indication:Current nonsmoker (Renamed from Current non-smoker) Start:19-Oct-2017 Instruction Type:Patient Education How to access health informa tion online - Detail Indication:Current nonsmoker (Renamed from Current non-smoker) Start:19-Oct-2017 Instruction Type:Patient Education Patient Instructions Indication:Current nonsmoker (Renamed from Current non-smoker) Start:19-Oct-2017 Instruction Type:Provider Instructions for Treatment How to access health informa tion online Indication:Sinus pressure Start:25-Oct-2016 Instruction Type:Patient Education How to access health informa tion online - Detail Indication:Sinus pressure Start:25-Oct-2016 Instruction Type:Patient Education Patient Instructions Indication:Sinus pressure Start:25-Oct-2016 Instruction Type:Provider Instructions for Treatment How to access health informa tion online Indication:Cough Start:15-Jul-2016 Instruction Type:Patient Education How to access health informa tion online - Detail Indication:Cough Start:15-Jul-2016 Instruction Type:Patient Education Patient Instructions Indication:Cough Start:15-Jul-2016 Instruction Type:Provider Instructions for Treatment How to access health informa tion online Indication:Rash Start:29-Feb-2016 Instruction Type:Patient Education How to access health informa tion online - Detail Indication:Rash Start:29-Feb-2016 Instruction Type:Patient Education How to access health informa tion online Indication:Rash Start:08-Feb-2016 Instruction Type:Patient Education How to access health informa tion online - Detail Indication:Rash Start:08-Feb-2016 Instruction Type:Patient Education Patient Instructions Indication:Rash Start:08-Feb-2016 Instruction Type:Provider Instructions for Treatment How to access health informa tion online Indication:Fatigue Start:29-Dec-2015 Instruction Type:Patient Education How to access health informa tion online - Detail Indication:Fatigue Start:29-Dec-2015 Instruction Type:Patient Education Patient Instructions Indication:Fatigue Start:29-Dec-2015 Instruction Type:Provider Instructions for Treatment How to access health informa tion online Indication:Hypothyroidism Start:06-Oct-2015 Instruction Type:Patient Education How to access health informa tion online - Detail Indication:Hypothyroidism Start:06-Oct-2015 Instruction Type:Patient Education Patient Instructions Indication:Hypothyroidism Start:06-Oct-2015 Instruction Type:Provider Instructions for Treatment Patient Instructions Indication:Rash Start:27-May-2014 Instruction Type:Provider Instructions for Treatment Patient Instructions Indication:Acute pharyngitis Start:27-May-2014 Instruction Type:Provider Instructions for Treatment How to access health informa tion online Indication:Acute pharyngitis Start:27-May-2014 Instruction Type:Patient Education Patient Instructions Indication:Acute sinusitis, unspecified Start:14-Nov-2013 Instruction Type:Provider Instructions for Treatment Patient Instructions Indication:Hypothyroidism Start:29-Jun-2012 Instruction Type:Provider Instructions for Treatment Patient Instructions Indication:Bronchitis Start:22-Jun-2012 Instruction Type:Provider Instructions for Treatment Name Dates Details How to access health informa tion online Indication:Current nonsmoker (Renamed from Current non-smoker) Start:11-May-2020 Instruction Type:Patient Education How to access health informa tion online - Detail Indication:Current nonsmoker (Renamed from Current non-smoker) Start:11-May-2020 Instruction Type:Patient Education Patient Instructions Indication:Current nonsmoker (Renamed from Current non-smoker) Start:11-May-2020 Instruction Type:Provider Instructions for Treatment cardiovascular counseling Indication:Coronary artery disease Start:12-Jun-2019 Instruction Type:Provider Instructions for Treatment How to access health informa tion online Indication:Current nonsmoker (Renamed from Current non-smoker) Start:12-Jun-2019 Instruction Type:Patient Education How to access health informa tion online - Detail Indication:Current nonsmoker (Renamed from Current non-smoker) Start:12-Jun-2019 Instruction Type:Patient Education Patient Instructions Indication:Current nonsmoker (Renamed from Current non-smoker) Start:12-Jun-2019 Instruction Type:Provider Instructions for Treatment How to access health informa tion online Indication:Current nonsmoker (Renamed from Current non-smoker) Start:20-Jun-2018 Instruction Type:Patient Education How to access health informa tion online - Detail Indication:Current nonsmoker (Renamed from Current non-smoker) Start:20-Jun-2018 Instruction Type:Patient Education Patient Instructions Indication:Current nonsmoker (Renamed from Current non-smoker) Start:20-Jun-2018 Instruction Type:Provider Instructions for Treatment How to access health informa tion online Indication:Current nonsmoker (Renamed from Current non-smoker) Start:04-Apr-2018 Instruction Type:Patient Education How to access health informa tion online - Detail Indication:Current nonsmoker (Renamed from Current non-smoker) Start:04-Apr-2018 Instruction Type:Patient Education Patient Instructions Indication:Current nonsmoker (Renamed from Current non-smoker) Start:04-Apr-2018 Instruction Type:Provider Instructions for Treatment How to access health informa tion online Indication:BMI 27.0-27.9,adult Start:29-Mar-2018 Instruction Type:Patient Education How to access health informa tion online - Detail Indication:BMI 27.0-27.9,adult Start:29-Mar-2018 Instruction Type:Patient Education Patient Instructions Indication:BMI 27.0-27.9,adult Start:29-Mar-2018 Instruction Type:Provider Instructions for Treatment How to access health informa tion online Indication:BMI 27.0-27.9,adult Start:23-Feb-2018 Instruction Type:Patient Education How to access health informa tion online - Detail Indication:BMI 27.0-27.9,adult Start:23-Feb-2018 Instruction Type:Patient Education Patient Instructions Indication:BMI 27.0-27.9,adult Start:23-Feb-2018 Instruction Type:Provider Instructions for Treatment How to access health informa tion online Indication:BMI 29.0-29.9,adult Start:09-Feb-2018 Instruction Type:Patient Education How to access health informa tion online - Detail Indication:BMI 29.0-29.9,adult Start:09-Feb-2018 Instruction Type:Patient Education Patient Instructions Indication:BMI 29.0-29.9,adult Start:09-Feb-2018 Instruction Type:Provider Instructions for Treatment How to access health informa tion online Indication:Sinus pressure Start:16-Nov-2017 Instruction Type:Patient Education How to access health informa tion online - Detail Indication:Sinus pressure Start:16-Nov-2017 Instruction Type:Patient Education Patient Instructions Indication:Sinus pressure Start:16-Nov-2017 Instruction Type:Provider Instructions for Treatment How to access health informa tion online Indication:Current nonsmoker (Renamed from Current non-smoker) Start:19-Oct-2017 Instruction Type:Patient Education How to access health informa tion online - Detail Indication:Current nonsmoker (Renamed from Current non-smoker) Start:19-Oct-2017 Instruction Type:Patient Education Patient Instructions Indication:Current nonsmoker (Renamed from Current non-smoker) Start:19-Oct-2017 Instruction Type:Provider Instructions for Treatment How to access health informa tion online Indication:Sinus pressure Start:25-Oct-2016 Instruction Type:Patient Education How to access health informa tion online - Detail Indication:Sinus pressure Start:25-Oct-2016 Instruction Type:Patient Education Patient Instructions Indication:Sinus pressure Start:25-Oct-2016 Instruction Type:Provider Instructions for Treatment How to access health informa tion online Indication:Cough Start:15-Jul-2016 Instruction Type:Patient Education How to access health informa tion online - Detail Indication:Cough Start:15-Jul-2016 Instruction Type:Patient Education Patient Instructions Indication:Cough Start:15-Jul-2016 Instruction Type:Provider Instructions for Treatment How to access health informa tion online Indication:Rash Start:29-Feb-2016 Instruction Type:Patient Education How to access health informa tion online - Detail Indication:Rash Start:29-Feb-2016 Instruction Type:Patient Education How to access health informa tion online Indication:Rash Start:08-Feb-2016 Instruction Type:Patient Education How to access health informa tion online - Detail Indication:Rash Start:08-Feb-2016 Instruction Type:Patient Education Patient Instructions Indication:Rash Start:08-Feb-2016 Instruction Type:Provider Instructions for Treatment How to access health informa tion online Indication:Fatigue Start:29-Dec-2015 Instruction Type:Patient Education How to access health informa tion online - Detail Indication:Fatigue Start:29-Dec-2015 Instruction Type:Patient Education Patient Instructions Indication:Fatigue Start:29-Dec-2015 Instruction Type:Provider Instructions for Treatment How to access health informa tion online Indication:Hypothyroidism Start:06-Oct-2015 Instruction Type:Patient Education How to access health informa tion online - Detail Indication:Hypothyroidism Start:06-Oct-2015 Instruction Type:Patient Education Patient Instructions Indication:Hypothyroidism Start:06-Oct-2015 Instruction Type:Provider Instructions for Treatment Patient Instructions Indication:Rash Start:27-May-2014 Instruction Type:Provider Instructions for Treatment Patient Instructions Indication:Acute pharyngitis Start:27-May-2014 Instruction Type:Provider Instructions for Treatment How to access health informa tion online Indication:Acute pharyngitis Start:27-May-2014 Instruction Type:Patient Education Patient Instructions Indication:Acute sinusitis, unspecified Start:14-Nov-2013 Instruction Type:Provider Instructions for Treatment Patient Instructions Indication:Hypothyroidism Start:29-Jun-2012 Instruction Type:Provider Instructions for Treatment Patient Instructions Indication:Bronchitis Start:22-Jun-2012 Instruction Type:Provider Instructions for Treatment Name Dates Details How to Access Health Informa tion Online using Patient Portal and [employer] Apps Indication:Current nonsmoker (Renamed from Current non-smoker) Start:09-Jul-2020 Instruction Type:Patient Education Patient Instructions Indication:Current nonsmoker (Renamed from Current non-smoker) Start:09-Jul-2020 Instruction Type:Provider Instructions for Treatment How to access health informa tion online Indication:Current nonsmoker (Renamed from Current non-smoker) Start:11-May-2020 Instruction Type:Patient Education How to access health informa tion online - Detail Indication:Current nonsmoker (Renamed from Current non-smoker) Start:11-May-2020 Instruction Type:Patient Education Patient Instructions Indication:Current nonsmoker (Renamed from Current non-smoker) Start:11-May-2020 Instruction Type:Provider Instructions for Treatment cardiovascular counseling Indication:Coronary artery disease Start:12-Jun-2019 Instruction Type:Provider Instructions for Treatment How to access health informa tion online Indication:Current nonsmoker (Renamed from Current non-smoker) Start:12-Jun-2019 Instruction Type:Patient Education How to access health informa tion online - Detail Indication:Current nonsmoker (Renamed from Current non-smoker) Start:12-Jun-2019 Instruction Type:Patient Education Patient Instructions Indication:Current nonsmoker (Renamed from Current non-smoker) Start:12-Jun-2019 Instruction Type:Provider Instructions for Treatment How to access health informa tion online Indication:Current nonsmoker (Renamed from Current non-smoker) Start:20-Jun-2018 Instruction Type:Patient Education How to access health informa tion online - Detail Indication:Current nonsmoker (Renamed from Current non-smoker) Start:20-Jun-2018 Instruction Type:Patient Education Patient Instructions Indication:Current nonsmoker (Renamed from Current non-smoker) Start:20-Jun-2018 Instruction Type:Provider Instructions for Treatment How to access health informa tion online Indication:Current nonsmoker (Renamed from Current non-smoker) Start:04-Apr-2018 Instruction Type:Patient Education How to access health informa tion online - Detail Indication:Current nonsmoker (Renamed from Current non-smoker) Start:04-Apr-2018 Instruction Type:Patient Education Patient Instructions Indication:Current nonsmoker (Renamed from Current non-smoker) Start:04-Apr-2018 Instruction Type:Provider Instructions for Treatment How to access health informa tion online Indication:BMI 27.0-27.9,adult Start:29-Mar-2018 Instruction Type:Patient Education How to access health informa tion online - Detail Indication:BMI 27.0-27.9,adult Start:29-Mar-2018 Instruction Type:Patient Education Patient Instructions Indication:BMI 27.0-27.9,adult Start:29-Mar-2018 Instruction Type:Provider Instructions for Treatment How to access health informa tion online Indication:BMI 27.0-27.9,adult Start:23-Feb-2018 Instruction Type:Patient Education How to access health informa tion online - Detail Indication:BMI 27.0-27.9,adult Start:23-Feb-2018 Instruction Type:Patient Education Patient Instructions Indication:BMI 27.0-27.9,adult Start:23-Feb-2018 Instruction Type:Provider Instructions for Treatment How to access health informa tion online Indication:BMI 29.0-29.9,adult Start:09-Feb-2018 Instruction Type:Patient Education How to access health informa tion online - Detail Indication:BMI 29.0-29.9,adult Start:09-Feb-2018 Instruction Type:Patient Education Patient Instructions Indication:BMI 29.0-29.9,adult Start:09-Feb-2018 Instruction Type:Provider Instructions for Treatment How to access health informa tion online Indication:Sinus pressure Start:16-Nov-2017 Instruction Type:Patient Education How to access health informa tion online - Detail Indication:Sinus pressure Start:16-Nov-2017 Instruction Type:Patient Education Patient Instructions Indication:Sinus pressure Start:16-Nov-2017 Instruction Type:Provider Instructions for Treatment How to access health informa tion online Indication:Current nonsmoker (Renamed from Current non-smoker) Start:19-Oct-2017 Instruction Type:Patient Education How to access health informa tion online - Detail Indication:Current nonsmoker (Renamed from Current non-smoker) Start:19-Oct-2017 Instruction Type:Patient Education Patient Instructions Indication:Current nonsmoker (Renamed from Current non-smoker) Start:19-Oct-2017 Instruction Type:Provider Instructions for Treatment How to access health informa tion online Indication:Sinus pressure Start:25-Oct-2016 Instruction Type:Patient Education How to access health informa tion online - Detail Indication:Sinus pressure Start:25-Oct-2016 Instruction Type:Patient Education Patient Instructions Indication:Sinus pressure Start:25-Oct-2016 Instruction Type:Provider Instructions for Treatment How to access health informa tion online Indication:Cough Start:15-Jul-2016 Instruction Type:Patient Education How to access health informa tion online - Detail Indication:Cough Start:15-Jul-2016 Instruction Type:Patient Education Patient Instructions Indication:Cough Start:15-Jul-2016 Instruction Type:Provider Instructions for Treatment How to access health informa tion online Indication:Rash Start:29-Feb-2016 Instruction Type:Patient Education How to access health informa tion online - Detail Indication:Rash Start:29-Feb-2016 Instruction Type:Patient Education How to access health informa tion online Indication:Rash Start:08-Feb-2016 Instruction Type:Patient Education How to access health informa tion online - Detail Indication:Rash Start:08-Feb-2016 Instruction Type:Patient Education Patient Instructions Indication:Rash Start:08-Feb-2016 Instruction Type:Provider Instructions for Treatment How to access health informa tion online Indication:Fatigue Start:29-Dec-2015 Instruction Type:Patient Education How to access health informa tion online - Detail Indication:Fatigue Start:29-Dec-2015 Instruction Type:Patient Education Patient Instructions Indication:Fatigue Start:29-Dec-2015 Instruction Type:Provider Instructions for Treatment How to access health informa tion online Indication:Hypothyroidism Start:06-Oct-2015 Instruction Type:Patient Education How to access health informa tion online - Detail Indication:Hypothyroidism Start:06-Oct-2015 Instruction Type:Patient Education Patient Instructions Indication:Hypothyroidism Start:06-Oct-2015 Instruction Type:Provider Instructions for Treatment Patient Instructions Indication:Rash Start:27-May-2014 Instruction Type:Provider Instructions for Treatment Patient Instructions Indication:Acute pharyngitis Start:27-May-2014 Instruction Type:Provider Instructions for Treatment How to access health informa tion online Indication:Acute pharyngitis Start:27-May-2014 Instruction Type:Patient Education Patient Instructions Indication:Acute sinusitis, unspecified Start:14-Nov-2013 Instruction Type:Provider Instructions for Treatment Patient Instructions Indication:Hypothyroidism Start:29-Jun-2012 Instruction Type:Provider Instructions for Treatment Patient Instructions Indication:Bronchitis Start:22-Jun-2012 Instruction Type:Provider Instructions for Treatment Name Dates Details How to Access Health Informa tion Online using Patient Portal and [employer]rd [employer] Apps Indication:Current nonsmoker (Renamed from Current non-smoker) Start:09-Jul-2020 Instruction Type:Patient Education Patient Instructions Indication:Current nonsmoker (Renamed from Current non-smoker) Start:09-Jul-2020 Instruction Type:Provider Instructions for Treatment How to access health informa tion online Indication:Current nonsmoker (Renamed from Current non-smoker) Start:11-May-2020 Instruction Type:Patient Education How to access health informa tion online - Detail Indication:Current nonsmoker (Renamed from Current non-smoker) Start:11-May-2020 Instruction Type:Patient Education Patient Instructions Indication:Current nonsmoker (Renamed from Current non-smoker) Start:11-May-2020 Instruction Type:Provider Instructions for Treatment cardiovascular counseling Indication:Coronary artery disease Start:12-Jun-2019 Instruction Type:Provider Instructions for Treatment How to access health informa tion online Indication:Current nonsmoker (Renamed from Current non-smoker) Start:12-Jun-2019 Instruction Type:Patient Education How to access health informa tion online - Detail Indication:Current nonsmoker (Renamed from Current non-smoker) Start:12-Jun-2019 Instruction Type:Patient Education Patient Instructions Indication:Current nonsmoker (Renamed from Current non-smoker) Start:12-Jun-2019 Instruction Type:Provider Instructions for Treatment How to access health informa tion online Indication:Current nonsmoker (Renamed from Current non-smoker) Start:20-Jun-2018 Instruction Type:Patient Education How to access health informa tion online - Detail Indication:Current nonsmoker (Renamed from Current non-smoker) Start:20-Jun-2018 Instruction Type:Patient Education Patient Instructions Indication:Current nonsmoker (Renamed from Current non-smoker) Start:20-Jun-2018 Instruction Type:Provider Instructions for Treatment How to access health informa tion online Indication:Current nonsmoker (Renamed from Current non-smoker) Start:04-Apr-2018 Instruction Type:Patient Education How to access health informa tion online - Detail Indication:Current nonsmoker (Renamed from Current non-smoker) Start:04-Apr-2018 Instruction Type:Patient Education Patient Instructions Indication:Current nonsmoker (Renamed from Current non-smoker) Start:04-Apr-2018 Instruction Type:Provider Instructions for Treatment How to access health informa tion online Indication:BMI 27.0-27.9,adult Start:29-Mar-2018 Instruction Type:Patient Education How to access health informa tion online - Detail Indication:BMI 27.0-27.9,adult Start:29-Mar-2018 Instruction Type:Patient Education Patient Instructions Indication:BMI 27.0-27.9,adult Start:29-Mar-2018 Instruction Type:Provider Instructions for Treatment How to access health informa tion online Indication:BMI 27.0-27.9,adult Start:23-Feb-2018 Instruction Type:Patient Education How to access health informa tion online - Detail Indication:BMI 27.0-27.9,adult Start:23-Feb-2018 Instruction Type:Patient Education Patient Instructions Indication:BMI 27.0-27.9,adult Start:23-Feb-2018 Instruction Type:Provider Instructions for Treatment How to access health informa tion online Indication:BMI 29.0-29.9,adult Start:09-Feb-2018 Instruction Type:Patient Education How to access health informa tion online - Detail Indication:BMI 29.0-29.9,adult Start:09-Feb-2018 Instruction Type:Patient Education Patient Instructions Indication:BMI 29.0-29.9,adult Start:09-Feb-2018 Instruction Type:Provider Instructions for Treatment How to access health informa tion online Indication:Sinus pressure Start:16-Nov-2017 Instruction Type:Patient Education How to access health informa tion online - Detail Indication:Sinus pressure Start:16-Nov-2017 Instruction Type:Patient Education Patient Instructions Indication:Sinus pressure Start:16-Nov-2017 Instruction Type:Provider Instructions for Treatment How to access health informa tion online Indication:Current nonsmoker (Renamed from Current non-smoker) Start:19-Oct-2017 Instruction Type:Patient Education How to access health informa tion online - Detail Indication:Current nonsmoker (Renamed from Current non-smoker) Start:19-Oct-2017 Instruction Type:Patient Education Patient Instructions Indication:Current nonsmoker (Renamed from Current non-smoker) Start:19-Oct-2017 Instruction Type:Provider Instructions for Treatment How to access health informa tion online Indication:Sinus pressure Start:25-Oct-2016 Instruction Type:Patient Education How to access health informa tion online - Detail Indication:Sinus pressure Start:25-Oct-2016 Instruction Type:Patient Education Patient Instructions Indication:Sinus pressure Start:25-Oct-2016 Instruction Type:Provider Instructions for Treatment How to access health informa tion online Indication:Cough Start:15-Jul-2016 Instruction Type:Patient Education How to access health informa tion online - Detail Indication:Cough Start:15-Jul-2016 Instruction Type:Patient Education Patient Instructions Indication:Cough Start:15-Jul-2016 Instruction Type:Provider Instructions for Treatment How to access health informa tion online Indication:Rash Start:29-Feb-2016 Instruction Type:Patient Education How to access health informa tion online - Detail Indication:Rash Start:29-Feb-2016 Instruction Type:Patient Education How to access health informa tion online Indication:Rash Start:08-Feb-2016 Instruction Type:Patient Education How to access health informa tion online - Detail Indication:Rash Start:08-Feb-2016 Instruction Type:Patient Education Patient Instructions Indication:Rash Start:08-Feb-2016 Instruction Type:Provider Instructions for Treatment How to access health informa tion online Indication:Fatigue Start:29-Dec-2015 Instruction Type:Patient Education How to access health informa tion online - Detail Indication:Fatigue Start:29-Dec-2015 Instruction Type:Patient Education Patient Instructions Indication:Fatigue Start:29-Dec-2015 Instruction Type:Provider Instructions for Treatment How to access health informa tion online Indication:Hypothyroidism Start:06-Oct-2015 Instruction Type:Patient Education How to access health informa tion online - Detail Indication:Hypothyroidism Start:06-Oct-2015 Instruction Type:Patient Education Patient Instructions Indication:Hypothyroidism Start:06-Oct-2015 Instruction Type:Provider Instructions for Treatment Patient Instructions Indication:Rash Start:27-May-2014 Instruction Type:Provider Instructions for Treatment Patient Instructions Indication:Acute pharyngitis Start:27-May-2014 Instruction Type:Provider Instructions for Treatment How to access health informa tion online Indication:Acute pharyngitis Start:27-May-2014 Instruction Type:Patient Education Patient Instructions Indication:Acute sinusitis, unspecified Start:14-Nov-2013 Instruction Type:Provider Instructions for Treatment Patient Instructions Indication:Hypothyroidism Start:29-Jun-2012 Instruction Type:Provider Instructions for Treatment Patient Instructions Indication:Bronchitis Start:22-Jun-2012 Instruction Type:Provider Instructions for Treatment Name Dates Details How to Access Health Informa tion Online using Patient Portal and [employer]rd [employer] Apps Indication:Current nonsmoker (Renamed from Current non-smoker) Start:09-Jul-2020 Instruction Type:Patient Education Patient Instructions Indication:Current nonsmoker (Renamed from Current non-smoker) Start:09-Jul-2020 Instruction Type:Provider Instructions for Treatment How to access health informa tion online Indication:Current nonsmoker (Renamed from Current non-smoker) Start:11-May-2020 Instruction Type:Patient Education How to access health informa tion online - Detail Indication:Current nonsmoker (Renamed from Current non-smoker) Start:11-May-2020 Instruction Type:Patient Education Patient Instructions Indication:Current nonsmoker (Renamed from Current non-smoker) Start:11-May-2020 Instruction Type:Provider Instructions for Treatment cardiovascular counseling Indication:Coronary artery disease Start:12-Jun-2019 Instruction Type:Provider Instructions for Treatment How to access health informa tion online Indication:Current nonsmoker (Renamed from Current non-smoker) Start:12-Jun-2019 Instruction Type:Patient Education How to access health informa tion online - Detail Indication:Current nonsmoker (Renamed from Current non-smoker) Start:12-Jun-2019 Instruction Type:Patient Education Patient Instructions Indication:Current nonsmoker (Renamed from Current non-smoker) Start:12-Jun-2019 Instruction Type:Provider Instructions for Treatment How to access health informa tion online Indication:Current nonsmoker (Renamed from Current non-smoker) Start:20-Jun-2018 Instruction Type:Patient Education How to access health informa tion online - Detail Indication:Current nonsmoker (Renamed from Current non-smoker) Start:20-Jun-2018 Instruction Type:Patient Education Patient Instructions Indication:Current nonsmoker (Renamed from Current non-smoker) Start:20-Jun-2018 Instruction Type:Provider Instructions for Treatment How to access health informa tion online Indication:Current nonsmoker (Renamed from Current non-smoker) Start:04-Apr-2018 Instruction Type:Patient Education How to access health informa tion online - Detail Indication:Current nonsmoker (Renamed from Current non-smoker) Start:04-Apr-2018 Instruction Type:Patient Education Patient Instructions Indication:Current nonsmoker (Renamed from Current non-smoker) Start:04-Apr-2018 Instruction Type:Provider Instructions for Treatment How to access health informa tion online Indication:BMI 27.0-27.9,adult Start:29-Mar-2018 Instruction Type:Patient Education How to access health informa tion online - Detail Indication:BMI 27.0-27.9,adult Start:29-Mar-2018 Instruction Type:Patient Education Patient Instructions Indication:BMI 27.0-27.9,adult Start:29-Mar-2018 Instruction Type:Provider Instructions for Treatment How to access health informa tion online Indication:BMI 27.0-27.9,adult Start:23-Feb-2018 Instruction Type:Patient Education How to access health informa tion online - Detail Indication:BMI 27.0-27.9,adult Start:23-Feb-2018 Instruction Type:Patient Education Patient Instructions Indication:BMI 27.0-27.9,adult Start:23-Feb-2018 Instruction Type:Provider Instructions for Treatment How to access health informa tion online Indication:BMI 29.0-29.9,adult Start:09-Feb-2018 Instruction Type:Patient Education How to access health informa tion online - Detail Indication:BMI 29.0-29.9,adult Start:09-Feb-2018 Instruction Type:Patient Education Patient Instructions Indication:BMI 29.0-29.9,adult Start:09-Feb-2018 Instruction Type:Provider Instructions for Treatment How to access health informa tion online Indication:Sinus pressure Start:16-Nov-2017 Instruction Type:Patient Education How to access health informa tion online - Detail Indication:Sinus pressure Start:16-Nov-2017 Instruction Type:Patient Education Patient Instructions Indication:Sinus pressure Start:16-Nov-2017 Instruction Type:Provider Instructions for Treatment How to access health informa tion online Indication:Current nonsmoker (Renamed from Current non-smoker) Start:19-Oct-2017 Instruction Type:Patient Education How to access health informa tion online - Detail Indication:Current nonsmoker (Renamed from Current non-smoker) Start:19-Oct-2017 Instruction Type:Patient Education Patient Instructions Indication:Current nonsmoker (Renamed from Current non-smoker) Start:19-Oct-2017 Instruction Type:Provider Instructions for Treatment How to access health informa tion online Indication:Sinus pressure Start:25-Oct-2016 Instruction Type:Patient Education How to access health informa tion online - Detail Indication:Sinus pressure Start:25-Oct-2016 Instruction Type:Patient Education Patient Instructions Indication:Sinus pressure Start:25-Oct-2016 Instruction Type:Provider Instructions for Treatment How to access health informa tion online Indication:Cough Start:15-Jul-2016 Instruction Type:Patient Education How to access health informa tion online - Detail Indication:Cough Start:15-Jul-2016 Instruction Type:Patient Education Patient Instructions Indication:Cough Start:15-Jul-2016 Instruction Type:Provider Instructions for Treatment How to access health informa tion online Indication:Rash Start:29-Feb-2016 Instruction Type:Patient Education How to access health informa tion online - Detail Indication:Rash Start:29-Feb-2016 Instruction Type:Patient Education How to access health informa tion online Indication:Rash Start:08-Feb-2016 Instruction Type:Patient Education How to access health informa tion online - Detail Indication:Rash Start:08-Feb-2016 Instruction Type:Patient Education Patient Instructions Indication:Rash Start:08-Feb-2016 Instruction Type:Provider Instructions for Treatment How to access health informa tion online Indication:Fatigue Start:29-Dec-2015 Instruction Type:Patient Education How to access health informa tion online - Detail Indication:Fatigue Start:29-Dec-2015 Instruction Type:Patient Education Patient Instructions Indication:Fatigue Start:29-Dec-2015 Instruction Type:Provider Instructions for Treatment How to access health informa tion online Indication:Hypothyroidism Start:06-Oct-2015 Instruction Type:Patient Education How to access health informa tion online - Detail Indication:Hypothyroidism Start:06-Oct-2015 Instruction Type:Patient Education Patient Instructions Indication:Hypothyroidism Start:06-Oct-2015 Instruction Type:Provider Instructions for Treatment Patient Instructions Indication:Rash Start:27-May-2014 Instruction Type:Provider Instructions for Treatment Patient Instructions Indication:Acute pharyngitis Start:27-May-2014 Instruction Type:Provider Instructions for Treatment How to access health informa tion online Indication:Acute pharyngitis Start:27-May-2014 Instruction Type:Patient Education Patient Instructions Indication:Acute sinusitis, unspecified Start:14-Nov-2013 Instruction Type:Provider Instructions for Treatment Patient Instructions Indication:Hypothyroidism Start:29-Jun-2012 Instruction Type:Provider Instructions for Treatment Patient Instructions Indication:Bronchitis Start:22-Jun-2012 Instruction Type:Provider Instructions for Treatment Name Dates Details How to Access Health Informa tion Online using Patient Portal and [employer]rd [employer] Apps Indication:Current nonsmoker (Renamed from Current non-smoker) Start:09-Jul-2020 Instruction Type:Patient Education Patient Instructions Indication:Current nonsmoker (Renamed from Current non-smoker) Start:09-Jul-2020 Instruction Type:Provider Instructions for Treatment How to access health informa tion online Indication:Current nonsmoker (Renamed from Current non-smoker) Start:11-May-2020 Instruction Type:Patient Education How to access health informa tion online - Detail Indication:Current nonsmoker (Renamed from Current non-smoker) Start:11-May-2020 Instruction Type:Patient Education Patient Instructions Indication:Current nonsmoker (Renamed from Current non-smoker) Start:11-May-2020 Instruction Type:Provider Instructions for Treatment cardiovascular counseling Indication:Coronary artery disease Start:12-Jun-2019 Instruction Type:Provider Instructions for Treatment How to access health informa tion online Indication:Current nonsmoker (Renamed from Current non-smoker) Start:12-Jun-2019 Instruction Type:Patient Education How to access health informa tion online - Detail Indication:Current nonsmoker (Renamed from Current non-smoker) Start:12-Jun-2019 Instruction Type:Patient Education Patient Instructions Indication:Current nonsmoker (Renamed from Current non-smoker) Start:12-Jun-2019 Instruction Type:Provider Instructions for Treatment How to access health informa tion online Indication:Current nonsmoker (Renamed from Current non-smoker) Start:20-Jun-2018 Instruction Type:Patient Education How to access health informa tion online - Detail Indication:Current nonsmoker (Renamed from Current non-smoker) Start:20-Jun-2018 Instruction Type:Patient Education Patient Instructions Indication:Current nonsmoker (Renamed from Current non-smoker) Start:20-Jun-2018 Instruction Type:Provider Instructions for Treatment How to access health informa tion online Indication:Current nonsmoker (Renamed from Current non-smoker) Start:04-Apr-2018 Instruction Type:Patient Education How to access health informa tion online - Detail Indication:Current nonsmoker (Renamed from Current non-smoker) Start:04-Apr-2018 Instruction Type:Patient Education Patient Instructions Indication:Current nonsmoker (Renamed from Current non-smoker) Start:04-Apr-2018 Instruction Type:Provider Instructions for Treatment How to access health informa tion online Indication:BMI 27.0-27.9,adult Start:29-Mar-2018 Instruction Type:Patient Education How to access health informa tion online - Detail Indication:BMI 27.0-27.9,adult Start:29-Mar-2018 Instruction Type:Patient Education Patient Instructions Indication:BMI 27.0-27.9,adult Start:29-Mar-2018 Instruction Type:Provider Instructions for Treatment How to access health informa tion online Indication:BMI 27.0-27.9,adult Start:23-Feb-2018 Instruction Type:Patient Education How to access health informa tion online - Detail Indication:BMI 27.0-27.9,adult Start:23-Feb-2018 Instruction Type:Patient Education Patient Instructions Indication:BMI 27.0-27.9,adult Start:23-Feb-2018 Instruction Type:Provider Instructions for Treatment How to access health informa tion online Indication:BMI 29.0-29.9,adult Start:09-Feb-2018 Instruction Type:Patient Education How to access health informa tion online - Detail Indication:BMI 29.0-29.9,adult Start:09-Feb-2018 Instruction Type:Patient Education Patient Instructions Indication:BMI 29.0-29.9,adult Start:09-Feb-2018 Instruction Type:Provider Instructions for Treatment How to access health informa tion online Indication:Sinus pressure Start:16-Nov-2017 Instruction Type:Patient Education How to access health informa tion online - Detail Indication:Sinus pressure Start:16-Nov-2017 Instruction Type:Patient Education Patient Instructions Indication:Sinus pressure Start:16-Nov-2017 Instruction Type:Provider Instructions for Treatment How to access health informa tion online Indication:Current nonsmoker (Renamed from Current non-smoker) Start:19-Oct-2017 Instruction Type:Patient Education How to access health informa tion online - Detail Indication:Current nonsmoker (Renamed from Current non-smoker) Start:19-Oct-2017 Instruction Type:Patient Education Patient Instructions Indication:Current nonsmoker (Renamed from Current non-smoker) Start:19-Oct-2017 Instruction Type:Provider Instructions for Treatment How to access health informa tion online Indication:Sinus pressure Start:25-Oct-2016 Instruction Type:Patient Education How to access health informa tion online - Detail Indication:Sinus pressure Start:25-Oct-2016 Instruction Type:Patient Education Patient Instructions Indication:Sinus pressure Start:25-Oct-2016 Instruction Type:Provider Instructions for Treatment How to access health informa tion online Indication:Cough Start:15-Jul-2016 Instruction Type:Patient Education How to access health informa tion online - Detail Indication:Cough Start:15-Jul-2016 Instruction Type:Patient Education Patient Instructions Indication:Cough Start:15-Jul-2016 Instruction Type:Provider Instructions for Treatment How to access health informa tion online Indication:Rash Start:29-Feb-2016 Instruction Type:Patient Education How to access health informa tion online - Detail Indication:Rash Start:29-Feb-2016 Instruction Type:Patient Education How to access health informa tion online Indication:Rash Start:08-Feb-2016 Instruction Type:Patient Education How to access health informa tion online - Detail Indication:Rash Start:08-Feb-2016 Instruction Type:Patient Education Patient Instructions Indication:Rash Start:08-Feb-2016 Instruction Type:Provider Instructions for Treatment How to access health informa tion online Indication:Fatigue Start:29-Dec-2015 Instruction Type:Patient Education How to access health informa tion online - Detail Indication:Fatigue Start:29-Dec-2015 Instruction Type:Patient Education Patient Instructions Indication:Fatigue Start:29-Dec-2015 Instruction Type:Provider Instructions for Treatment How to access health informa tion online Indication:Hypothyroidism Start:06-Oct-2015 Instruction Type:Patient Education How to access health informa tion online - Detail Indication:Hypothyroidism Start:06-Oct-2015 Instruction Type:Patient Education Patient Instructions Indication:Hypothyroidism Start:06-Oct-2015 Instruction Type:Provider Instructions for Treatment Patient Instructions Indication:Rash Start:27-May-2014 Instruction Type:Provider Instructions for Treatment Patient Instructions Indication:Acute pharyngitis Start:27-May-2014 Instruction Type:Provider Instructions for Treatment How to access health informa tion online Indication:Acute pharyngitis Start:27-May-2014 Instruction Type:Patient Education Patient Instructions Indication:Acute sinusitis, unspecified Start:14-Nov-2013 Instruction Type:Provider Instructions for Treatment Patient Instructions Indication:Hypothyroidism Start:29-Jun-2012 Instruction Type:Provider Instructions for Treatment Patient Instructions Indication:Bronchitis Start:22-Jun-2012 Instruction Type:Provider Instructions for Treatment Advance Directives No Advanced Directives Records Found Name Dates Details Immunization Registry Zoe - Effective on 06/12/2019. Expiration date unspecified Effective:12-Jun-2019 Name Dates Details Immunization Registry Zoe - Effective on 06/12/2019. Expiration date unspecified Effective:12-Jun-2019 Name Dates Details Immunization Registry Zoe - Effective on 06/12/2019. Expiration date unspecified Effective:12-Jun-2019 Name Dates Details Immunization Registry Zoe - Effective on 06/12/2019. Expiration date unspecified Effective:12-Jun-2019 Name Dates Details Immunization Registry Zoe - Effective on 06/12/2019. Expiration date unspecified Effective:12-Jun-2019 Name Dates Details Immunization Registry Zoe - Effective on 06/12/2019. Expiration date unspecified Effective:12-Jun-2019 Name Dates Details Immunization Registry Zoe - Effective on 06/12/2019. Expiration date unspecified Effective:12-Jun-2019 Name Dates Details Immunization Registry Zoe - Effective on 06/12/2019. Expiration date unspecified Effective:12-Jun-2019 Name Dates Details Immunization Registry Zoe - Effective on 06/12/2019. Expiration date unspecified Effective:12-Jun-2019 Advance Directive Response Recorded Date/ Time Advance Directives Yes December 23 5:25pm Living Will Yes December 24, 2015 5 :25pm Power of Reo Asset Manager Yes December 24, 2015 5:25pm Name Dates Details Immunization Registry Zoe - Effective on 06/12/2019. Expiration date unspecified Effective:12-Jun-2019 Name Dates Details Immunization Registry Zoe - Effective on 06/12/2019. Expiration date unspecified Effective:12-Jun-2019 Advance Directive Response Recorded Date/ Time Advance Directives Yes December 23 6 6:25pm Living Will Yes December 24, 2015 6 :25pm Power of Reo Asset Manager Yes December 24, 2015 6:25pm Advance Directive Response Recorded Date/ Time Advance Directives Yes December 23 6 6:25pm Summary Purpose Chief Complaint and Reason for Visit Chief Complaint INT LABS Chief Complaint 6 M FU W PFM PER PFM EORDER Reason for Visit Essential hypertensi on Hyperlipidemia Presence of stent in coronary artery Chief Complaint 6 M FU W PFM PER PFM EORDER SCREENING Reason for Visit Essential hypertensi on Hyperlipidemia Presence of stent in coronary artery Chief Complaint 6 M FU W PFM PER PFM EORDER SCREENING Hypothyroidism, unspecified Reason for Visit Essential hypertensi on Hyperlipidemia Presence of stent in coronary artery Chief Complaint Hypothyroidism, unsp ecified PARESTHESIA OF SKIN BILATERAL UPPER PARESTHESIA OF SKIN BILATERAL UPPER 5M FU 2 ORDERING DOCTORS Reason for Visit Essential hypertensi on Hyperlipidemia Presence of stent in coronary artery Chief Complaint PARESTHESIA OF SKIN BILATERAL UPPER PARESTHESIA OF SKIN BILATERAL UPPER 5M FU 2 ORDERING DOCTORS E23.8 Reason for Visit Essential hypertensi on Hyperlipidemia Presence of stent in coronary artery Chief Complaint 5M FU 2 ORDERING DOCTORS E23.8 SCREENING Reason for Visit Essential hypertensi on Hyperlipidemia Presence of stent in coronary artery Chief Complaint Admit Date ELEVATED LIVER ENZYMES July 26, 2024 7:32am Chief Complaint Admit Date SOB December 30, 2024 11:51 am Chief Complaint Admit Date SOB December 30, 2024 11:51 am 9 M FU February 24, 2025 8:1 8am Reason for Visit Admit Date Atherosclerotic heart diseas e of [place] coronary artery without angina pectoris February 24, 2025 8:18am Additional Source Comments (unrecognized sect ion and content) No Status Records FoundNo Status Records FoundNo Status Records Found INFORMATION SOURCE (unrecogn ized section and content) DATE CREATED AUTHOR 11/03/2020 [facility] DATE CREATED AUTHOR AUTHOR'S ORGANIZ ATION 08/27/2022 [facility] DATE CREATED AUTHOR AUTHOR'S ORGANIZ ATION 04/04/2025 [facility] Goals (unrecognized section and content) Goals may be documented in a n alternate sectionGoals may be documented in an alternate sectionGoals may be documented in an alternate sectionGoals may be documented in an alternate sectionGoals may be documented in an alternate sectionGoals may be documented in an alternate sectionGoals may be documented in an alternate sectionGoals may be documented in an alternate sectionGoals may be documented in an alternate sectionGoals may be documented in an alternate sectionGoals may be documented in an alternate sectionGoals may be documented in an alternate sectionGoals may be documented in an alternate sectionGoals may be documented in an alternate sectionGoals may be documented in an alternate sectionGoals may be documented in an alternate sectionGoals may be documented in an alternate section Care Teams (unrecognized sec tion and content) Team Status: Active Member Role Status Dates Dr. Shruthi Song DO Family Provider Active Dr. Shruthi Song DO Primary Care Provider Active Team Status: Inactive Member Role Status Dates Dr. Shruthi Song DO Primary Care Provider, Referr ing Provider Active Annmarie Huerta PA, PA Attending Provider Active Team Status: Inactive Member Role Status Dates Dr. Shruthi Song DO Primary Care Provider Active Annmarie Huerta PA, PA Attending Provider, Referr ing Provider Active Team Status: Active Member Role Status Dates Dr. Shruthi Song DO Family Provider Active Dr. Tee Ricardo MD Primary Care Provider Active Team Status: Inactive Member Role Status Dates Dr. Tee Ricardo MD Primary Care Provi juice, Attending Provider, Referring Provider Active Janes Dennis SHREDDING MACHINE TENDER, SHREDDING MACHINE TENDER-C Other Provider Active Annmarie Huerta PA, PA Other Provider Active Team Status: Inactive Member Role Status Dates Dr. Tee Ricardo MD Primary Care Provi juice, Attending Provider, Referring Provider Active Team Status: Inactive Member Role Status Dates Dr. Shruthi Song DO Referring Provider Active Annmarie Huerta PA, PA Attending Provider Active Dr. Tee Ricardo MD Primary Care Provider Active Team Status: Active Member Role Status Dates Dr. Tee Ricardo MD Primary Care Provider Active Dr. Dickson Church DO Referring Provider, Other Pr ovider Active Dr. Santino Drake MD Attending Provider Active Team Status: Inactive Member Role Status Dates Dr. Tee Ricardo MD Primary Care Provider, Attending Provider Active Annmarie Huerta PA, PA Other Provider Active Team Status: Inactive Member Role Status Dates Dr. Tee Ricardo MD Primary Care Provider Active Dr. Dickson Church DO Attending Provider, Referrin g Provider Active Team Status: Active Member Role Status Dates Dr. Tee Ricardo MD Primary Care Provider, Attending Provider Active Team Status: Inactive Member Role Status Dates Dr. Tee Ricardo MD Primary Care Provider, Attending Provider Active Team Status: Inactive Member Role Status Dates Dr. Tee Ricardo MD Primary Care Provider Active Start: July 15, 2024 End: July 15, 2024 Dr. Tee Ricardo MD Attending Provider Active Start: July 15, 2024 End: July 15, 2024 Dr. Tee Ricardo MD Referring Provider Active Start: July 15, 2024 End: July 15, 2024 Team Status: Inactive Member Role Status Dates Dr. Tee Ricardo MD Primary Care Provider Active Start: July 22, 2024 End: July 22, 2024 Dr. Tee Ricardo MD Attending Provider Active Start: July 22, 2024 End: July 22, 2024 Dr. Tee Ricardo MD Referring Provider Active Start: July 22, 2024 End: July 22, 2024 Team Status: Inactive Member Role Status Dates Dr. Tee Ricardo MD Primary Care Provider Active Start: July 26, 2024 End: July 26, 2024 Dr. Tee Ricardo MD Attending Provider Active Start: July 26, 2024 End: July 26, 2024 Dr. Tee Ricardo MD Referring Provider Active Start: July 26, 2024 End: July 26, 2024 Team Status: Inactive Member Role Status Dates Dr. Tee Ricardo MD Primary Care Provider Active Start: October 14, 2024 End: October 14, 2024 Dr. Tee Ricardo MD Attending Provider Active Start: October 14, 2024 End: October 14, 2024 Team Status: Active Member Role Status Dates Dr. Tee Ricardo MD Primary Care Provider Active Start: November 29, 2024 Dr. Tee Ricardo MD Attending Provider Active Start: November 29, 2024 Dr. Tee Ricardo MD Referring Provider Active Start: November 29, 2024 Team Status: Inactive Member Role Status Dates Dr. Tee Ricardo MD Primary Care Provider Active Start: November 29, 2024 End: November 29, 2024 Dr. Tee Ricardo MD Attending Provider Active Start: November 29, 2024 End: November 29, 2024 Dr. Tee Ricardo MD Referring Provider Active Start: November 29, 2024 End: November 29, 2024 Team Status: Active Member Role Status Dates Dr. Tee Ricardo MD Primary Care Provider Active Team Status: Inactive Member Role Status Dates Dr. Tee Ricardo MD Primary Care Provider Active Start: December 09, 2024 End: December 09, 2024 Dr. Tee Ricardo MD Attending Provider Active Start: December 09, 2024 End: December 09, 2024 Dr. Tee Ricardo MD Referring Provider Active Start: December 09, 2024 End: December 09, 2024 Team Status: Inactive Member Role Status Dates Dr. Tee Ricardo MD Primary Care Provider Active Start: December 30, 2024 End: December 30, 2024 Dr. Tee Ricardo MD Attending Provider Active Start: December 30, 2024 End: December 30, 2024 Dr. Tee Ricardo MD Referring Provider Active Start: December 30, 2024 End: December 30, 2024 Team Status: Active Member Role/Relationship Status Dates Dr. Tee Ricardo MD Primary Care Provider Active Team Status: Inactive Member Role/Relationship Status Dates Dr. Tee Ricardo MD Primary Care Provider Active Start: October 14, 2024 End: October 14, 2024 Dr. Tee Ricardo MD Attending Provider Active Start: October 14, 2024 End: October 14, 2024 Team Status: Inactive Member Role/Relationship Status Dates Dr. Tee Ricardo MD Primary Care Provider Active Start: November 29, 2024 End: November 29, 2024 Dr. Tee Ricardo MD Attending Provider Active Start: November 29, 2024 End: November 29, 2024 Dr. Tee Ricardo MD Referring Provider Active Start: November 29, 2024 End: November 29, 2024 Team Status: Inactive Member Role/Relationship Status Dates Dr. Tee Ricardo MD Primary Care Provider Active Start: November 29, 2024 End: November 29, 2024 Dr. Tee Ricardo MD Attending Provider Active Start: November 29, 2024 End: November 29, 2024 Dr. Tee Ricardo MD Referring Provider Active Start: November 29, 2024 End: November 29, 2024 Team Status: Inactive Member Role/Relationship Status Dates Dr. Tee Ricardo MD Primary Care Provider Active Start: December 09, 2024 End: December 09, 2024 Dr. Tee Ricardo MD Attending Provider Active Start: December 09, 2024 End: December 09, 2024 Dr. Tee Ricardo MD Referring Provider Active Start: December 09, 2024 End: December 09, 2024 Team Status: Inactive Member Role/Relationship Status Dates Dr. Tee Ricardo MD Primary Care Provider Active Start: December 30, 2024 End: December 30, 2024 Dr. Tee Ricardo MD Attending Provider Active Start: December 30, 2024 End: December 30, 2024 Dr. Tee Ricardo MD Referring Provider Active Start: December 30, 2024 End: December 30, 2024 Team Status: Active Member Role/Relationship Status Dates Dr. Tee Ricardo MD Primary Care Provider Active Start: January 16, 2025 Dr. Tee Ricardo MD Attending Provider Active Start: January 16, 2025 Dr. Tee Ricardo MD Referring Provider Active Start: January 16, 2025 Team Status: Inactive Member Role/Relationship Status Dates Dr. Tee Ricardo MD Primary Care Provider Active Start: January 17, 2025 End: January 17, 2025 Dr. Tee Ricardo MD Attending Provider Active Start: January 17, 2025 End: January 17, 2025 Dr. Tee Ricardo MD Referring Provider Active Start: January 17, 2025 End: January 17, 2025 Team Status: Inactive Member Role/Relationship Status Dates Dr. Tee Ricardo MD Primary Care Provider Active Start: January 16, 2025 End: January 16, 2025 Dr. Tee Ricardo MD Attending Provider Active Start: January 16, 2025 End: January 16, 2025 Dr. Tee Ricardo MD Referring Provider Active Start: January 16, 2025 End: January 16, 2025 Team Status: Inactive Member Role/Relationship Status Dates Dr. Tee Ricardo MD Primary Care Provider Active Start: February 04, 2025 End: February 04, 2025 Dr. Tee Ricardo MD Attending Provider Active Start: February 04, 2025 End: February 04, 2025 Team Status: Inactive Member Role/Relationship Status Dates Dr. Tee Ricardo MD Primary Care Provider Active Start: November 29, 2024 End: November 29, 2024 Dr. Tee Ricardo MD Attending Provider Active Start: November 29, 2024 End: November 29, 2024 Dr. Tee Ricardo MD Referring Provider Active Start: November 29, 2024 End: November 29, 2024 Team Status: Inactive Member Role/Relationship Status Dates Dr. Tee Ricardo MD Primary Care Provider Active Start: December 09, 2024 End: December 09, 2024 Dr. Tee Ricardo MD Attending Provider Active Start: December 09, 2024 End: December 09, 2024 Dr. Tee Ricardo MD Referring Provider Active Start: December 09, 2024 End: December 09, 2024 Team Status: Inactive Member Role/Relationship Status Dates Dr. Tee Ricardo MD Primary Care Provider Active Start: December 30, 2024 End: December 30, 2024 Dr. Tee Ricardo MD Attending Provider Active Start: December 30, 2024 End: December 30, 2024 Dr. Tee Ricardo MD Referring Provider Active Start: December 30, 2024 End: December 30, 2024 Team Status: Inactive Member Role/Relationship Status Dates Dr. Tee Ricardo MD Primary Care Provider Active Start: January 16, 2025 End: January 16, 2025 Dr. Tee Ricardo MD Attending Provider Active Start: January 16, 2025 End: January 16, 2025 Dr. Tee Ricardo MD Referring Provider Active Start: January 16, 2025 End: January 16, 2025 Team Status: Inactive Member Role/Relationship Status Dates Dr. Tee Ricardo MD Primary Care Provider Active Start: January 17, 2025 End: January 17, 2025 Dr. eTe Ricardo MD Attending Provider Active Start: January 17, 2025 End: January 17, 2025 Dr. Tee Ricardo MD Referring Provider Active Start: January 17, 2025 End: January 17, 2025 Team Status: Inactive Member Role/Relationship Status Dates Dr. Tee Ricardo MD Primary Care Provider Active Start: February 04, 2025 End: February 04, 2025 Dr. eTe Ricardo MD Attending Provider Active Start: February 04, 2025 End: February 04, 2025 Team Status: Inactive Member Role/Relationship Status Dates Dr. Tee Ricardo MD Primary Care Provider Active Start: February 24, 2025 End: February 24, 2025 Dr. Tee Ricardo MD Referring Provider Active Start: February 24, 2025 End: February 24, 2025 Dr. Michael Toth MD Attending Provider Active Start: February 24, 2025 End: February 24, 2025 FOR RECORDS PERTAINING TO PATIENTS WHO ARE OR HAVE BEEN ENROLLED IN A CHEMICAL DEPENDENCY/SUBSTANCEABUSE PROGRAM, SOME INFORMATION MAY BE OMITTED. This clinical summary was aggregated from multiple sources. Caution should be exercised in using it in the provision of clinical care. This summary normalizes information from multiple sources, and as a consequence, information in this document may materially change the coding, format and clinical context of patient data. In addition, data may be omitted in some cases. CLINICAL DECISIONS SHOULD BE BASED ON THE PRIMARY CLINICAL RECORDS. [facility] [employer], [facility]. provides no warranty or guarantee of the accuracy or completeness of information in this document.
--- NOTE | 2025-04-08 12:11 | STRESSREP_ITS ---
Stress Test Report Date: 04/08/2025 Procedure: Pharmacologic stress nuclear imaging study Indications: Coronary artery disease/chest pain Consent: Per the patient Procedure: The patient underwent pharmacologic (Regadenoson 0.4mg ) evaluation with a peak heart rate of 68 beats per minute (46%predicted maximal heart rate) and a peak blood pressure of 124/72 mmHg. The baseline ECG demonstrated sinus rhythm with rare PAC. The peak pharmacologic ECG did not show any ischemic changes. No significant cardiac dysrhythmias noted. There was no complaint of chest discomfort during pharmacologic infusion or recovery. The patient was injected with 13.5 millicuries of technetium 99m Cardiolite and subsequently rest SPECT Cardiolite nuclear imaging was obtained in the horizontal long, vertical long, and short axis views. The patient underwent pharmacologic (Regadenoson) evaluation. The patient was injected with 41.3 millicuries of technetium 99m Cardiolite and subsequently stress SPECT Cardiolite nuclear imaging was obtained in the horizontal long, vertical long, and short axis views. A gated Cardiolite study at peak stress was obtained. The examination was stopped secondary to completion of protocol. Rest and stress SPECT Cardiolite nuclear imaging status post realignment, normalization, and attenuation correction demonstrate no fixed or reversible perfusion defects. There is end systolic thickening and brightening. The gated Cardiolite study demonstrates myocardial thickening and inward wall motion. The reported LVEF is 73%. Impression: 1. Pharmacologic (Regadenoson) evaluation 2. Peak pharmacologic ECG with no ischemic changes. 3. No significant cardiac dysrhythmias noted. 5. Rest and stress SPECT Cardiolite nuclear imaging demonstrate relative uniform tracer uptake and myocardial perfusion appearing within normal limits. 6. The gated Cardiolite study reports an LVEF of 73%. This note was generated with [employer] software. It may contain incorrect words, spelling, and punctuation that were not noted in checking the note before signing.
[2025-04-08 18:41] LABS: Staph aureus DNA By PCR NEGATIVE (Negative)
== END | disposition home or self-care (01) ==
PROVIDERS: PCP Family Medicine Geriatric Medicine; Referring Provider Internal Medicine Cardiovascular Disease; Visit Provider Internal Medicine Cardiovascular Disease
DX: I25.10 Atherosclerotic heart disease of native coronary artery without angina pectoris (principal); R07.9 Chest pain, unspecified; R06.09 Other forms of dyspnea; Z22.39 Carrier of other specified bacterial diseases; Z95.5 Presence of coronary angioplasty implant and graft
CPT/HCPCS: 78452; 87070; 87075; 87077; 87186; 87205; 87640; 93017; A9500; A4216; J2785

== ENCOUNTER → 2025-05-07 | Outpatient (CLI) | payer MEDICARE, OTHER, SELFPAY ==
--- NOTE | 2025-05-07 13:30 | RAD_ITS ---
PROCEDURE: WRIST MIN 3 VIEWS 05/07/2025 REASON FOR EXAM: R ARM PAIN TECHNIQUE: Procedure Code: RADWR Modality: DX Procedure: WRIST MIN 3 VIEWS Laterality: Right wrist. COMPARISON: None FINDINGS: Bones: No visible fracture. No suspicious bone lesion. Joints: Degenerative changes at the 1st metacarpophalangeal joint. Soft tissues: Soft tissues are unremarkable. Other: RAD/Wrist min 3 Views IMPRESSION: No acute fracture seen. Degenerative changes at the 1st metacarpophalangeal joint. Reading Location: [place] [id number]
== END | disposition home or self-care (01) ==
LOC: RAD 13:20
PROVIDERS: PCP Family Medicine Geriatric Medicine; Referring Provider Family Medicine Geriatric Medicine; Visit Provider Family Medicine Geriatric Medicine
DX: M79.601 Pain in right arm (principal)
CPT/HCPCS: 73110

== ENCOUNTER → 2025-07-08 | Outpatient (CLI) | payer MEDICARE, OTHER, SELFPAY ==
[2025-07-08 11:32] LABS: Hematocrit 45.2 % (40-54); Hemoglobin 15.0 g/dL (13.0-16.5); Immature Granulocytes Count 0.050 X10^3/uL (0.0-0.0); Mean Corp Hgb Conc 33.2 g/dL (32-36); Mean Corpuscular Volume 98.5 fL (80-94); Mean Platelet Vol. 10.0 fl (6.2-12.0); NRBC Flagged by Analyzer 0 % (0-5); Platelet Count 225 K/mm3 (150-450); RBC Distribution Width CV 13.1 % (11.6-14.6); RBC Distribution Width SD 47.0 fl (35.1-43.9); Red Blood Count 4.59 M/mm3 (4.6-6.2); White Blood Count 6.5 K/mm3 (4.4-11.0)
[2025-07-08 12:09] LABS: AST(SGOT) 105 U/L (<=37); Alanine Aminotransfer ALT/SGPT 154 U/L (<=46); Albumin, Serum 4.1 g/dL (3.4-4.8); Alkaline Phosphatase 93 U/L (40-129); Anion Gap 8 (5-15); BUN 11 mg/dL (4-19); BUN/Creat Ratio 10.7 RATIO (10-20); Calcium,Total 9.3 mg/dL (7.6-11.0); Carbon Dioxide 26.4 mmol/L (21.0-32.0); Chloride 103 mmol/L (98-108); Globulin 2.8 g/dL (2.2-4.2); Glucose 119 mg/dL (70-99); Potassium 3.9 mmol/L (3.3-5.1); Vitamin D,25 Hydroxy 36.0 ng/mL (30-100)
[2025-07-08 19:07] LABS: Xtra Tube Kwok EXTRA TUBE
== END | disposition home or self-care (01) ==
PROVIDERS: PCP Family Medicine Geriatric Medicine; Visit Provider Family Medicine Geriatric Medicine
DX: E03.9 Hypothyroidism, unspecified (principal); E55.9 Vitamin D deficiency, unspecified; I10 Essential (primary) hypertension
CPT/HCPCS: 36415; 80053; 82306; 84443; 85025

== ENCOUNTER → 2025-07-08 | Outpatient (CLI) | payer MEDICARE, OTHER, SELFPAY ==
--- NOTE | 2025-07-08 11:41 | RAD_ITS ---
PROCEDURE: L/S SPINE MIN 4 VIEWS 07/08/2025 REASON FOR EXAM: LOW BACK PAIN, UNSPECIFIED TECHNIQUE: Procedure Code: RADSPLS Modality: DX Procedure: L/S SPINE MIN 4 VIEWS COMPARISON: None FINDINGS: Lumbar spine four views. Hardware is partly visible in the right and left hip. Vertebral body height and alignment are maintained. There is loss of disc height from L3-S1. There is moderate facet sclerosis. Mineralization is normal. There is no visible atherosclerosis. RAD/L/S Spine Min 4 Views IMPRESSION: There is loss of disc height from L3-S1. Reading Location: [place]
== END | disposition home or self-care (01) ==
LOC: RAD 11:40
PROVIDERS: PCP Family Medicine Geriatric Medicine; Referring Provider Family Medicine Geriatric Medicine; Visit Provider Family Medicine Geriatric Medicine
DX: M54.50 Low back pain, unspecified (principal)
CPT/HCPCS: 72110